=== PATIENT | female | born 1955 | race African-American/Black ===

== ENCOUNTER 2016-08-15 10:45 | Observation (INO) | payer OTHER ==
[~2016-08-15] VITALS: Ht 160 cm; Wt 90.3 kg
[~2016-08-15 10:45] MED LIST: ALBU1AER9 INH; ASPI81TA28 PO; BUME1TAB PO; CALC-354 PO; CETI10TA84 PO; CLOB0.0512 TOP; CLOP1TAB5 PO; CRS/10 PO; DIFL0.0519; ESCI1TAB9 PO; FLUT110A INH; GUAI1TAB55 PO; HYDR-3124 PO; HYDR-4683 TOP; INSDGI SC; IPRA0.037 NAE; ISOS60TA2 PO; KETO2SHA TOP; LACT1TAB4 PO; LISI-729 PO; LORA-741 PO; MAGNTAB4 PO; MENT4GEL TOP; METO25TA56 PO; METR0.754 TOP; MULT-513 PO; NTRGSL/4 UT; NVLGI SC; PANT40TA PO; POLY335025 PO; SENN1TAB65 PO
[2016-08-15] MEDS ORDERED: INSDGIPEN SC (11:04)
[2016-08-15] MEDS ORDERED: NVLGI/PEN SC (11:04)
[2016-08-15] MEDS ORDERED: HYDROmorphone INJ 0.5 MG/0.5 ML SYR IV STA (11:31)
[2016-08-15] MEDS ORDERED: ONDANSETRON INJ 2 MG/ML 2 ML VIAL IV STA (11:31)
[2016-08-15] MEDS ORDERED: SODIUM CHLORIDE 0.9% 1000ML 1,000 ML IV STA (11:31)
--- NOTE | 2016-08-15 11:39 | EMERGENCY ROOM VISIT NOTE ---
History First contact with patient: 11:20 Chief Complaint: FLU LIKE SX Stated Complaint: FLU SX History of Present Illness The patient is a 61 year old female who presents to the Emergency Room via ambulance with complaints of "flu symptoms". The patient presents to the emergency department via BLS. The patient is delayed in response verbally. The patient states that of this past week she felt lousy, tired and then began with nausea vomiting and diarrhea either the same day or the following day. She states that she has vomited a few times each day but denies any blood in the vomit. She also has had diarrhea several times per day and nausea. She does have abdominal pain she points to the diffuse abdomen as a location of the pain of which she rates as a 10/10 that began a few days ago. She also feels feverish. She also feels dizzy and lightheaded. There is associated shortness of breath. She has minor chest pain. She also has minor neck pain. She states that her sister has the same symptoms. Patient lives at home with her cat Review of Systems A complete 10-point Review of Systems was discussed with the patient, with pertinent positives and negatives listed in the History of Present Illness. All remaining Review of Systems questions can be considered negative unless otherwise specified. Past Medical/Surgical History Medical Problems: (1) Aortocoronary Bypass (2) Asthma, Unspecified (3) CKD (chronic kidney disease), stage III (4) Coronary atherosclerosis of [place] coronary vessel (5) Depression (6) Diab Nany Wo Compl, Type Ii Or Unspec Type, Not Uncntrld (7) Diabetic nephropathy (8) Diabetic retinopathy (9) GERD (gastroesophageal reflux disease) (10) Hypertension Nos (11) Neuropathy in diabetes (12) Obesity, Class II, BMI 35-39.9, with comorbidity (13) Obstructive Sleep Apnea (Adult) (Pediatric) (14) Osteoarthritis (15) Pacemaker (16) Polymyalgia rheumatica (17) Presence of combination internal cardiac defibrillator (ICD) and pacemaker (18) Pure Hypercholesterolem (19) Ventricular fibrillation Surgical Problems: (1) H/O eye surgery (2) History of appendectomy (3) History of cholecystectomy (4) History of hysterectomy (5) History of hysterectomy (6) S/P triple vessel bypass Social History Problems: (1) Diabetes mellitus Family History Diabetes mellitus FATHER BROTHER FH: cancer FH: lung disease FHx: heart disease MOTHER Hypertension MOTHER Kidney disease Kidney stones Social History Smoking Status: Former Smoker Alcohol Use: occasionally Drug Use: none Marital Status: Housing Status: lives alone Occupation Status: disabled Current/Historical Medications Scheduled Aspirin (Aspirin Ec), 81 MG PO QAM Bumetanide (Bumex), 1 MG PO QAM Calcium Carbonate-Cholecalcife (Caltrate 600+D), 1 TABLET PO BID Clopidogrel Bisulfate (Plavix), 75 MG PO HS Difluprednate (Durezol), 1 DOSE DIRECTED Escitalopram Oxalate (Lexapro), 15 MG PO QAM Hydroxyzine Hcl (Atarax), 12.5 MG PO HS Insulin Aspart (Novolog Flexpen), 1 DOSE SC SLIDING SCALE Insulin Glargine (Lantus Solostar), 80 UNITS SC AMPM Isosorbide Mononitrate (Imdur Ext Rel), 60 MG PO QAM Ketoconazole (Topical) (Ketoconazole), 1 APPLN TOP DAILY Lactobacillus (Floranex), 1 TAB PO DAILY Lisinopril (Prinivil), 5 MG PO QAM Magnesium Chloride (Slow-Mag Tab), 64 MG PO TID Metoprolol Tartrate (Lopressor) (Lopressor), 25 MG PO BID Multivitamins/Minerals (Mvi With Minerals), 1 TABLET PO QAM Pantoprazole (Protonix), 40 MG PO BID Polyethylene Glycol 3350 (Miralax), 17 MG PO BID Rosuvastatin Calcium (Crestor), 10 MG PO QAM Sennosides-Docusate Sodium (Senna Plus), 2 TAB PO HS Scheduled PRN Guaifenesin Ext Rel (Mucinex Ext Rel), 600 MG PO Q12 PRN for Nasal Congestion Lorazepam (Ativan), 0.5 MG PO TID PRN for Anxiety Nitroglycerin (Nitrostat), 0.4 MG UT UD PRN for Chest Pain Allergies Coded Allergies: BEE STING (Verified Allergy, Severe, SWELLING, 05/05/16) Lidocaine (Verified Allergy, Severe, ANAPHYLAXIS, 05/05/16) Morphine (Verified Allergy, Mild, itching, 05/05/16) Tramadol (Verified Allergy, Mild, ITCHING, 05/05/16) Trazodone (Verified Allergy, Mild, ITCHING, 05/05/16) Physical Exam Vital Signs Date Time Temp Pulse Resp B/P Pulse Ox O2 Delivery O2 Flow Rate FiO2 08/15/16 19:35 37.1 60 16 173/89 98 Nasal Cannula 2.0 08/15/16 19:07 183/80 100 08/15/16 18:48 73 16 177/121 96 Nasal Cannula 2.0 08/15/16 15:41 72 20 187/79 100 Room Air 08/15/16 14:36 177/84 08/15/16 13:58 183/83 08/15/16 13:34 71 16 100 Nasal Cannula 2.0 08/15/16 13:28 187/101 08/15/16 13:04 70 16 89 08/15/16 13:02 94 Room Air 08/15/16 12:59 168/94 08/15/16 12:45 64 16 94 08/15/16 12:15 66 17 08/15/16 12:03 66 08/15/16 11:47 189/113 08/15/16 10:54 37.3 74 18 205/107 96 Room Air Physical Exam VITAL SIGNS - Vital signs and nursing notes were reviewed. Patient is afebrile , she is hypertensive at 205/107, she is not tachycardic and is saturating well on room air 96%. GENERAL -61-year-old female appearing her stated age who is in no acute distress , but is delayed in her responses and seems to be searching mentally for answers. Communicates well with provider and answers questions appropriately when given enough time SKIN - Without rashes. No petechial rashes. No meningeal rashes. HEAD - NC/AT. EYES - PERRL with EOMI bilaterally. Sclera anicteric. Palpebral conjunctiva pink and moist with no injection noted. EARS - No deformities of external structures noted on gross examination bilaterally. No pain elicited with palpation of the tragus bilaterally. External auditory canals without discharge or otorrhea. Tympanic membranes pearly lopez without retraction or bulging. No fluid or purulent material visualized behind the TM. Handle of malleus, umbo, cone of light, pars tensa/ flaccid all easily visualized. NOSE - Midline and without cyanosis. No epistaxis or purulent drainage noted. MOUTH/OROPHARYNX - Without perioral cyanosis. Buccal mucosa pink and moist and without leukoplakia. Tongue midline with equal elevation of palate bilaterally. No tonsillar hypertrophy, erythema, or exudates noted. No dentition noted. NECK - Neck with FROM. Supple to palpation. No lymphadenopathy noted. No nuchal rigidity. Patient is diaphoretic on the back of the neck. LUNGS - Chest wall symmetric without accessory muscle use, intercostals retractions, or central cyanosis. Normal vesicular breath sounds CTA B/L. No wheezes, rales, or rhonchi appreciated. CARDIAC - RRR with S1/S2. No murmur, rubs, or gallops appreciated. ABDOMEN - Abdominal contour without pulsations or visible masses. BS normoactive all four quadrants. There is tenderness to palpation over the abdomen diffusely. No palpable masses, hepatosplenomegaly, or ascites noted. EXTREMITIES - No clubbing or peripheral cyanosis. No pretibial edema present. + 5/5 strength noted in UE/LE bilaterally. NEUROLOGIC - Cranial nerves II through XII grossly intact. Sensory intact to light touch throughout. PSYCH - A&Ox3 and cooperates fully with examiner. Pt is very pleasant and interacts well with examiner. She is alert and oriented to person, place and time. Medical Decision & Procedures ER Provider Diagnostic Interpretation: SINGLE VIEW CHEST CLINICAL HISTORY: Dyspnea. FINDINGS: An AP, portable, upright chest radiograph is compared to study dated 10/20/2015 and correlated with chest CT dated 04/08/2015. The patient is status post midline sternotomy. A 2-lead cardiac AICD is unchanged in position and largely obscures the left mid chest. The heart is enlarged and there is atherosclerotic calcification of the thoracic aorta. The pulmonary vasculature is noncongested. The lungs and pleural spaces are clear. No pneumothorax is seen. The skeletal structures are osteopenic. The bony thorax is grossly intact. IMPRESSION: 1. Cardiomegaly and AICD. There is no radiographic evidence of congestive failure. 2. The lungs are clear. Electronically signed by: Diego Ricardo M.D. 08/15/2016 12:59 PM Dictated Date/Time: 08/15/2016 12:[address] SCAN OF THE ABDOMEN AND PELVIS WITH IV CONTRAST CLINICAL HISTORY: Generalized abdominal pain. COMPARISON STUDY: Abdominal CT dated 03/23/2016 and 10/13/2013. Abdominal MRI dated 08/30/11. MRCP dated TECHNIQUE: Following the IV administration of 93 cc of Optiray 320, CT scan of the abdomen and pelvis is performed from the lung bases to the proximal femora. Images are reviewed in the axial, sagittal, and coronal planes. IV contrast was administered without complication. Automated dose control exposure was utilized. The examination is degraded by large body habitus, and by streak artifact from the body wall abutting the CT gantry. CT DOSE: 1015.20 mGycm FINDINGS: Lung bases: The heart is normal in size and without pericardial effusion. Pacemaker leads are noted. There is a small hiatal hernia. The lung bases are clear noting dependent atelectasis. Liver: The contrast-enhanced liver is normal in size, contour, and attenuation. Focal fatty infiltration is seen adjacent to falciform ligament and the gallbladder fossa. There is mild central intrahepatic biliary ductal dilatation. The hepatic veins and portal veins are patent. Gallbladder: Surgically absent noting clips in the gallbladder fossa. Spleen: Normal in size and attenuation. Pancreas: Unremarkable. Adrenal glands: A 3.0 cm left adrenal nodule is unchanged from 03/23/2016 but has increased in size from 10/13/2013. The right adrenal gland is unremarkable. Kidneys: The contrast enhanced kidneys are atrophic and without hydronephrosis. The kidneys enhance symmetrically. A 1.7 cm complex right renal lesion is unchanged dating 2013 and likely represents a complex/hemorrhagic cyst. Additional subcentimeter cortical hypodensities also likely represent cysts but are too small for definitive characterization. Abdominal vasculature: The abdominal aorta is normal in course and caliber noting mild to moderate atherosclerotic calcification. Bowel: The small bowel and colon are normal in course and caliber. The left colon is relatively decompressed. The appendix is not identified. Peritoneum: There is no intraperitoneal free air or abdominal ascites. Foci of subcutaneous gas within the abdominal pannus are likely related to subcutaneous injections. Lymphadenopathy: None. Pelvic viscera: The bladder is normal as visualized. The uterus is surgically absent. No adnexal lesion is seen. Skeletal structures: The skeletal structures are osteopenic. There is mild lumbosacral spondylosis. No lytic or blastic lesions are seen. IMPRESSION: 1. There are no acute infectious or inflammatory findings in the abdomen or pelvis. 2. There is a 3.0 cm left adrenal nodule. This is similar in size to the 03/23/2016 examination but has nearly doubled in size as compared to studies dating back to 2012 and 2013. This was pathologically indeterminant on a prior MRI examination. Surgical consultation is advised due to the increase in size. 3. Geographic foci of fatty infiltration are again noted in the liver. 4. Additional changes as above. Electronically signed by: Diego Ricardo M.D. 08/15/2016 3:16 PM Dictated Date/Time: 08/15/2016 3:03 PM Laboratory Results 08/15/16 12:15 Red Blood Count 4.98, Mean Corpuscular Volume 86.1, Mean Corpuscular Hemoglobin 29.5, Mean Corpuscular Hemoglobin Concent 34.3, Mean Platelet Volume 10.7, Neutrophils (%) (Auto) 69.0, Lymphocytes (%) (Auto) 26.1, Monocytes (%) (Auto) 4.5, Eosinophils (%) (Auto) 0.0, Basophils (%) (Auto) 0.1, Neutrophils # (Auto) 8.03, Lymphocytes # (Auto) 3.04, Monocytes # (Auto) 0.52, Eosinophils # (Auto) 0.00, Basophils # (Auto) 0.01 08/15/16 12:15 Test 08/15/16 12:15 08/15/16 12:25 08/15/16 12:50 08/15/16 12:55 White Blood Count 11.64 K/uL (4.8-10.8) Red Blood Count 4.98 M/uL (4.2-5.4) Hemoglobin 14.7 g/dL (12.0-16.0) Hematocrit 42.9 % (37-47) Mean Corpuscular Volume 86.1 fL (80-100) Mean Corpuscular Hemoglobin 29.5 pg (25-34) Mean Corpuscular Hemoglobin Concent 34.3 g/dl (32-36) Platelet Count 245 K/uL (130-400) Mean Platelet Volume 10.7 fL (7.4-10.4) Neutrophils (%) (Auto) 69.0 % Lymphocytes (%) (Auto) 26.1 % Monocytes (%) (Auto) 4.5 % Eosinophils (%) (Auto) 0.0 % Basophils (%) (Auto) 0.1 % Neutrophils # (Auto) 8.03 K/uL (1.4-6.5) Lymphocytes # (Auto) 3.04 K/uL (1.2-3.4) Monocytes # (Auto) 0.52 K/uL (0.11-0.59) Eosinophils # (Auto) 0.00 K/uL (0-0.5) Basophils # (Auto) 0.01 K/uL (0-0.2) RDW Standard Deviation 40.9 fL (36.4-46.3) RDW Coefficient of Variation 13.0 % (11.5-14.5) Immature Granulocyte % (Auto) 0.3 % Immature Granulocyte # (Auto) 0.04 K/uL (0.00-0.02) Prothrombin Time 11.2 SECONDS (9.0-12.0) Prothromb Time International Ratio 1.0 (0.9-1.1) Activated Partial Thromboplast Time 26.3 SECONDS (21.0-31.0) Partial Thromboplastin Ratio 1.0 Anion Gap 12.0 mmol/L (3-11) Est Creatinine Clear Calc Drug Dose 55.8 ml/min Estimated GFR () 61.9 Estimated GFR (Non- 53.4 BUN/Creatinine Ratio 18.9 (10-20) Calcium Level 9.8 mg/dl (8.5-10.1) Magnesium Level 1.8 mg/dl (1.8-2.4) Total Bilirubin 0.5 mg/dl (0.2-1) Aspartate Amino Transf (AST/SGOT) 25 U/L (15-37) Alanine Aminotransferase (ALT/SGPT) 31 U/L (12-78) Alkaline Phosphatase 52 U/L (45-117) Ammonia < 10.0 umol/L (11-32) Total Creatine Kinase 171 U/L (26-192) Creatine Kinase MB 3.9 ng/ml (0.5-3.6) Creatine Kinase MB Ratio 2.3 (0-3.0) Total Protein 9.3 gm/dl (6.4-8.2) Albumin 3.7 gm/dl (3.4-5.0) Globulin 5.6 gm/dl (2.5-4.0) Albumin/Globulin Ratio 0.7 (0.9-2) Lipase 77 U/L (73-393) Troponin I 0.032 ng/ml (0-0.045) Pro-B-Type Natriuretic Peptide 946 pg/ml (0-900) Influenza Type A Antigen Neg for Influ A (NEG) Influenza Type B Antigen Neg for Influ B (NEG) Bedside Lactic Acid Venous 2.14 mmol/L (0.90-1.70) Medications Administered Medications (Trade) Dose Ordered Sig/Tera Route Start Time Stop Time Status Last Admin Dose Admin Sodium Chloride (Nss 1000ml) 1,000 ml @ 999 mls/hr Q1H1M STAT IV 08/15/16 11:31 08/15/16 12:31 DC 08/15/16 13:01 999 MLS/HR Hydromorphone HCl (Dilaudid Inj) 0.5 mg NOW STAT IV 08/15/16 11:31 08/15/16 11:37 DC 08/15/16 13:01 0.5 MG Ondansetron HCl 4 mg 4 mg NOW STAT IV 08/15/16 11:31 08/15/16 11:37 DC 08/15/16 13:01 4 MG Sodium Chloride (Nss 1000ml) 1,000 ml @ 80 mls/hr [id number] IV 08/15/16 18:15 09/14/16 18:14 08/15/16 20:33 80 MLS/HR Hydromorphone HCl (Dilaudid Inj) 0.5 mg STK-MED ONCE .ROUTE 08/15/16 18:43 08/15/16 18:44 DC 08/15/16 18:43 0.5 MG Medical Decision Patient was seen and evaluated as above. After obtaining a thorough history and physical examination IV access is obtained and a CBC, CMP, ammonia, CK-MB, CPK, magnesium, lipase, influenza, urine drug screen, coagulation studies, UA clean catch culture if indicated, blood culture, [id number] troponin, lactic acid, BNP, chest 1 view portable, 1 L of normal saline, stat EKG, 1 mg of Dilaudid IV for milligrams of Zofran secondary to subjective and objective examination findings. Monitor was applied and continuous pulse ox was initiated. The patient was delayed in her responses to my verbal questions. I am unaware of her baseline. She is not with any family at this time. I was initially concerned for a multitude of potential causes reflecting the above workup. CBC revealed slight leukocytosis no anemia. Coagulation studies within normal limits. CMP reveals elevated anion gap, elevated BUN at 21, random glucose of 161, decreased ammonia, negative troponin, slight elevation of BNP at 946. Negative for influenza. Chest x-ray reveals cardiomegaly and pacemaker with defibrillator. There are incisional findings were discussed with the patient and patient's family upon their arrival. CT of the abdomen was performed as the patient was complaining of diffuse abdominal pain that was severe. I was concerned for acute intra-abdominal process although she has had numerous CT scans in the past. No acute process but there were incidental findings were discussed with the patient. Patient's case was discussed with my attending who also personally evaluated the patient. There was a large growth, 3 cm adrenal mass was discussed with the patient. She was unaware of this finding. I did discuss this with the radiologist and it was decided that the patient is to follow-up in the outpatient setting with a surgeon for this. I then wanted to perform an ambulatory trial and this was filled by the patient. I do believe that further management for this is appropriate. I did discuss the case with the hospitalist. They agreed to admit the patient. Please refer to further evaluation and documentation regarding her stay. EKG reveals sinus rhythm rate of 67 bpm and when compared to previous reveals atrial electronic pacing less frequent without evidence of acute ectopy or ischemic change. In the evaluation and treatment of this patient the following differential diagnoses were entertained: Heart failure, metabolic abnormality, electrolyte abnormality, stroke, heart attack, acute abdominal abnormality, among others. Impression Primary Impression: Influenza-like symptoms Additional Impressions: Presence of combination internal cardiac defibrillator (ICD) and pacemaker Adrenal nodule Cardiomegaly thoracic aorta calcification Ambulatory dysfunction Departure Information Dispostion Home / Self-Care Condition GOOD Referrals Reginaldo Ramirez D.O. (PCP) Patient Instructions My [facility] [employer] Additional Instructions You were seen in the emergency department for nausea, vomiting, diarrhea with body aches and low-grade fever. Your blood pressure was elevated today please have this repeated your family doctor. Please have basic labs repeated with your family doctor. Please wear family doctor as soon as possible schedule follow-up regarding today 's visit. The CT of your abdomen did reveal : Please discuss the findings of the CT scan with your doctor who should also have a copy of this. A 3.0 cm left adrenal nodule is unchanged from 03/23/2016 but has increased in size from 10/13/2013. It is recommended you follow-up with your family doctor for this and potential referral to a surgeon to have this removed. A 1.7 cm complex right renal lesion is unchanged dating 2013 and likely represents a complex/hemorrhagic cyst. Geographic foci of fatty infiltration are again noted in the liver. Please return to the emergency department with any new/concerning symptoms. Problem Qualifiers
[2016-08-15] MEDS ORDERED: OPTIRAY 320 IV PRN (11:45)
[2016-08-15 12:30] LABS: BASO % 0.1 %; BASO ABS # 0.01 K/uL (0-0.2); COMPLETE YES; HEMATOCRIT 42.9 % (37-47); IG% 0.3 %; LYMPH % 26.1 %; LYMPH ABS # 3.04 K/uL (1.2-3.4); MEAN CELL VOLUME 86.1 fL (80-100); MEAN CORPUSCULAR HEMOGLOBIN 29.5 pg (25-34); MEAN CORPUSCULAR HGB CONC 34.3 g/dl (32-36); MEAN PLATELET VOLUME 10.7 fL (7.4-10.4); MONO % 4.5 %; PLATELET COUNT 245 K/uL (130-400); RED BLOOD COUNT 4.98 M/uL (4.2-5.4); WHITE BLOOD COUNT 11.64 K/uL (4.8-10.8)
[2016-08-15 12:39] LABS: PROTHROMBIN TIME (PATIENT) 11.2 SECONDS (9.0-12.0)
[2016-08-15 12:47] LABS: BUN/CREATININE RATIO 18.9 (10-20); CALCIUM 9.8 mg/dl (8.5-10.1); CREATININE 1.1 mg/dl (0.60-1.20); MAGNESIUM 1.8 mg/dl (1.8-2.4)
[2016-08-15 12:59] LABS: ALB/GLOB RATIO 0.7 (0.9-2); CKMB/CK RATIO 2.3 (0-3.0)
--- NOTE | 2016-08-15 13:01 | DIAGNOSTIC IMAGING REPORT ---
SINGLE VIEW CHEST CLINICAL HISTORY: Dyspnea. FINDINGS: An AP, portable, upright chest radiograph is compared to study dated 10/20/2015 and correlated with chest CT dated 04/08/2015. The patient is status post midline sternotomy. A 2-lead cardiac AICD is unchanged in position and largely obscures the left mid chest. The heart is enlarged and there is atherosclerotic calcification of the thoracic aorta. The pulmonary vasculature is noncongested. The lungs and pleural spaces are clear. No pneumothorax is seen. The skeletal structures are osteopenic. The bony thorax is grossly intact. IMPRESSION: 1. Cardiomegaly and AICD. There is no radiographic evidence of congestive failure. 2. The lungs are clear. Electronically signed by: Diego Ricardo M.D. 08/15/2016 12:59 PM Dictated Date/Time: 08/15/2016 12:58 PM
--- NOTE | 2016-08-15 15:18 | DIAGNOSTIC IMAGING REPORT ---
CT SCAN OF THE ABDOMEN AND PELVIS WITH IV CONTRAST CLINICAL HISTORY: Generalized abdominal pain. COMPARISON STUDY: Abdominal CT dated 03/23/2016 and 10/13/2013. Abdominal MRI dated 08/30/11. MRCP dated TECHNIQUE: Following the IV administration of 93 cc of Optiray 320, CT scan of the abdomen and pelvis is performed from the lung bases to the proximal femora. Images are reviewed in the axial, sagittal, and coronal planes. IV contrast was administered without complication. Automated dose control exposure was utilized. The examination is degraded by large body habitus, and by streak artifact from the body wall abutting the CT gantry. CT DOSE: 1015.20 mGycm FINDINGS: Lung bases: The heart is normal in size and without pericardial effusion. Pacemaker leads are noted. There is a small hiatal hernia. The lung bases are clear noting dependent atelectasis. Liver: The contrast-enhanced liver is normal in size, contour, and attenuation. Focal fatty infiltration is seen adjacent to falciform ligament and the gallbladder fossa. There is mild central intrahepatic biliary ductal dilatation. The hepatic veins and portal veins are patent. Gallbladder: Surgically absent noting clips in the gallbladder fossa. Spleen: Normal in size and attenuation. Pancreas: Unremarkable. Adrenal glands: A 3.0 cm left adrenal nodule is unchanged from 03/23/2016 but has increased in size from 10/13/2013. The right adrenal gland is unremarkable. Kidneys: The contrast enhanced kidneys are atrophic and without hydronephrosis. The kidneys enhance symmetrically. A 1.7 cm complex right renal lesion is unchanged dating 2013 and likely represents a complex/hemorrhagic cyst. Additional subcentimeter cortical hypodensities also likely represent cysts but are too small for definitive characterization. Abdominal vasculature: The abdominal aorta is normal in course and caliber noting mild to moderate atherosclerotic calcification. Bowel: The small bowel and colon are normal in course and caliber. The left colon is relatively decompressed. The appendix is not identified. Peritoneum: There is no intraperitoneal free air or abdominal ascites. Foci of subcutaneous gas within the abdominal pannus are likely related to subcutaneous injections. Lymphadenopathy: None. Pelvic viscera: The bladder is normal as visualized. The uterus is surgically absent. No adnexal lesion is seen. Skeletal structures: The skeletal structures are osteopenic. There is mild lumbosacral spondylosis. No lytic or blastic lesions are seen. IMPRESSION: 1. There are no acute infectious or inflammatory findings in the abdomen or pelvis. 2. There is a 3.0 cm left adrenal nodule. This is similar in size to the 03/23/2016 examination but has nearly doubled in size as compared to studies dating back to 2012 and 2013. This was pathologically indeterminant on a prior MRI examination. Surgical consultation is advised due to the increase in size. 3. Geographic foci of fatty infiltration are again noted in the liver. 4. Additional changes as above. Electronically signed by: Diego Ricardo M.D. 08/15/2016 3:16 PM Dictated Date/Time: 08/15/2016 3:03 PM
--- NOTE | 2016-08-15 15:47 | EMERGENCY ROOM VISIT NOTE ---
ED Visit Note First contact with patient: 11:20 I have personally seen and evaluated the patient with the physician billing assistant. I agree with the diagnostic/management decisions and have personally been involved in these decisions and agree with the diagnosis. The patient would like to go home. She states that she lives alone. She is feeling much better.
[2016-08-15] MEDS ORDERED: ONDANSETRON HOME PACK 4MG OD TAB PO STA (16:19)
[2016-08-15] MEDS ORDERED: GLUCOSE 10 TABS/TUBE PO PRN (18:15)
[2016-08-15] MEDS ORDERED: MAGNESIUM HYDROXIDE SUSP 30 ML UDC PO PRN (18:15)
[2016-08-15] MEDS ORDERED: GUAIFENESIN 600 MG TABCR PO PRN (18:15)
[2016-08-15] MEDS ORDERED: ALUMINUM/MAGNESIUM/SIMETH (MAALOX MAX) 30 ML UDC PO PRN (18:15)
[2016-08-15] MEDS ORDERED: LORAZEPAM 0.5 MG TAB PO PRN (18:15)
[2016-08-15] MEDS ORDERED: NITROGLYCERIN 0.4 MG SL PER TAB CHARGE UT PRN (18:15)
[2016-08-15] MEDS ORDERED: GLUCOSE 40% GEL 15 GM TUBE PO PRN (18:15)
[2016-08-15] MEDS ORDERED: HYDROmorphone INJ 1 MG/ML SYR IV PRN (18:15)
[2016-08-15] MEDS ORDERED: GLUCAGON FOR INJ 1 MG VIAL SQ PRN (18:15)
[2016-08-15] MEDS ORDERED: ONDANSETRON INJ 2 MG/ML 2 ML VIAL IV PRN (18:15)
[2016-08-15] MEDS ORDERED: DEXTROSE 50% 50 ML SYR IV PRN (18:15)
[2016-08-15] MEDS ORDERED: PHARMACY GLYCEMIC MGMT CONSULT PRN (18:32)
[2016-08-15] MEDS ORDERED: HYDROmorphone INJ 0.5 MG/0.5 ML SYR ONE (18:43)
--- NOTE | 2016-08-15 18:50 | History and Physical ---
History & Physical Date & Time of Service: Aug 15, 2016 at 18:24 Chief Complaint: Flu Sx Primary Care Physician: Reginaldo Ramirez D.O. History of Present Illness Source: patient, family, clinic records, hospital records This is a 61 year old female with PMH of CAD s/p CABG and PCI/stenting, hx. of ventricular fibrillation s/p implantable cardioverter/defibrillator, insulin dependent DM2, HTN presents with abdominal pain, nausea/vomiting, diarrhea, weakness and ambulatory dysfunction. Patient states that the weakness and n/v/d began about a week prior but started to worsen prior to arrival in the ER. She tells me this is associated with abdominal pain diffusely; unable to pinpoint where the pain is. Patient stated that she felt better after receiving fluids and pain medications in the ER and wanted to go home. She tried to get up and ambulate, but had difficulty doing it; +weakness persists Past Medical/Surgical History Medical Problems: (1) Aortocoronary Bypass Status: Resolved (2) Asthma, Unspecified Status: Chronic (3) CKD (chronic kidney disease), stage III Status: Chronic (4) Coronary atherosclerosis of [place] coronary vessel Permanent Comment: s/p CABG (SVG to OM, SVT to OM2, MEHTA to LAD) on 04/05/1998 s/p HEIDY x2 (LM and LAD) in 06/2012 Status: Chronic (5) Depression Status: Chronic (6) Diab Nany Wo Compl, Type Ii Or Unspec Type, Not Uncntrld Status: Chronic (7) Diabetic nephropathy Status: Chronic (8) Diabetic retinopathy Status: Chronic (9) GERD (gastroesophageal reflux disease) Status: Chronic (10) Hypertension Nos Status: Chronic (11) Neuropathy in diabetes Status: Chronic (12) Obesity, Class II, BMI 35-39.9, with comorbidity Status: Chronic (13) Obstructive Sleep Apnea (Adult) (Pediatric) Status: Chronic (14) Pacemaker Status: Resolved (15) Polymyalgia rheumatica Status: Chronic (16) Presence of combination internal cardiac defibrillator (ICD) and pacemaker Status: Chronic (17) Pure Hypercholesterolem Status: Chronic (18) Ventricular fibrillation Permanent Comment: VF arrest x2 s/p ICD placement Status: Chronic Surgical Problems: (1) H/O eye surgery Status: Chronic (2) History of appendectomy Status: Resolved (3) History of cholecystectomy Status: Resolved (4) History of hysterectomy Status: Resolved (5) History of hysterectomy Status: Chronic (6) S/P triple vessel bypass Status: Resolved Social History Problems: (1) Diabetes mellitus Status: Chronic Family History Diabetes mellitus FATHER BROTHER FH: cancer FH: lung disease FHx: heart disease MOTHER Hypertension MOTHER Kidney disease Kidney stones Social History Smoking Status: Former Smoker Drug Use: none Marital Status: Housing status: lives alone Occupational Status: disabled Immunizations History of Influenza Vaccine: N/A History of Tetanus Vaccine?: No History of Pneumococcal: No History of Hepatitis B Vaccine: No Allergies Coded Allergies: BEE STING (Verified Allergy, Severe, SWELLING, 05/05/16) Lidocaine (Verified Allergy, Severe, ANAPHYLAXIS, 05/05/16) Morphine (Verified Allergy, Mild, itching, 05/05/16) Tramadol (Verified Allergy, Mild, ITCHING, 05/05/16) Trazodone (Verified Allergy, Mild, ITCHING, 05/05/16) Home Medications Scheduled Aspirin (Aspirin Ec), 81 MG PO QAM Bumetanide (Bumex), 1 MG PO QAM Calcium Carbonate-Cholecalcife (Caltrate 600+D), 1 TABLET PO BID Clopidogrel Bisulfate (Plavix), 75 MG PO HS Difluprednate (Durezol), 1 DOSE DIRECTED Escitalopram Oxalate (Lexapro), 15 MG PO QAM Hydroxyzine Hcl (Atarax), 12.5 MG PO HS Insulin Aspart (Novolog Flexpen), 1 DOSE SC SLIDING SCALE Insulin Glargine (Lantus Solostar), 80 UNITS SC AMPM Isosorbide Mononitrate (Imdur Ext Rel), 60 MG PO QAM Ketoconazole (Topical) (Ketoconazole), 1 APPLN TOP DAILY Lactobacillus (Floranex), 1 TAB PO DAILY Lisinopril (Prinivil), 5 MG PO QAM Magnesium Chloride (Slow-Mag Tab), 64 MG PO TID Metoprolol Tartrate (Lopressor) (Lopressor), 25 MG PO BID Multivitamins/Minerals (Mvi With Minerals), 1 TABLET PO QAM Pantoprazole (Protonix), 40 MG PO BID Polyethylene Glycol 3350 (Miralax), 17 MG PO BID Rosuvastatin Calcium (Crestor), 10 MG PO QAM Sennosides-Docusate Sodium (Senna Plus), 2 TAB PO HS Scheduled PRN Guaifenesin Ext Rel (Mucinex Ext Rel), 600 MG PO Q12 PRN for Nasal Congestion Lorazepam (Ativan), 0.5 MG PO TID PRN for Anxiety Nitroglycerin (Nitrostat), 0.4 MG UT UD PRN for Chest Pain Review of Systems Constitutional: + fatigue, + weakness, No chills, No fever, No sweats Respiratory: No cough, No dyspnea at rest, No dyspnea on exertion, No hemoptysis, No shortness of breath, No sputum, No wheezing Cardiovascular: No chest pain, No edema, No orthopnea, No palpitations Abdomen: + diarrhea, + nausea, + pain, + vomiting, No GI bleeding, No constipation Genitourinary - Female: No dysuria, No urinary frequency, No urinary incontinence, No urinary retention, No urinary urgency Neurologic: + balance problems, + weakness, No memory loss, No numbness/ tingling, No vertigo Psychiatric: No anxiety, No depression symptoms Hematologic / Lymphatic: No abnormal bleeding/bruising Integumentary: No rash Allergic / Immunologic: No environmental allergies Physical Exam Vital Signs Date Time Temp Pulse Resp B/P Pulse Ox O2 Delivery O2 Flow Rate FiO2 08/15/16 15:41 72 20 187/79 100 Room Air 08/15/16 14:36 177/84 08/15/16 13:58 183/83 08/15/16 13:34 71 16 100 Nasal Cannula 2.0 08/15/16 13:28 187/101 08/15/16 13:04 70 16 89 08/15/16 13:02 94 Room Air 08/15/16 12:59 168/94 08/15/16 12:45 64 16 94 08/15/16 12:15 66 17 08/15/16 12:03 66 08/15/16 11:47 189/113 08/15/16 10:54 37.3 74 18 205/107 96 Room Air General Appearance: no apparent distress, + pertinent finding (+weakness/ lethargic) Head: normocephalic, atraumatic, + pertinent finding (+facial hair growth) Eyes: normal inspection ENT: normal ENT inspection, hearing grossly normal Neck: supple Respiratory/Chest: chest non-tender, lungs clear, normal breath sounds, no respiratory distress, no accessory muscle use, + pertinent finding (+ implantable defibrillator at left chest wall) Cardiovascular: regular rate, rhythm, no edema, no murmur Abdomen/GI: normal bowel sounds, soft, + tenderness, + guarding Extremities/Musculoskelatal: no calf tenderness, normal capillary refill, no pedal edema Neurologic/Psych: no motor/sensory deficits, alert, + pertinent finding (+ weakness/lethargic) Skin: normal color Diagnostics Laboratory Results Results Past 24 Hours Test 08/15/16 11:45 08/15/16 12:15 08/15/16 12:25 08/15/16 12:50 Range/Units Influenza Type A Antigen Uninterpretable Neg for Influ A NEG Influenza Type B Antigen Uninterpretable Neg for Influ B NEG White Blood Count 11.64 4.8-10.8 K/uL Red Blood Count 4.98 4.2-5.4 M/uL Hemoglobin 14.7 12.0-16.0 g/dL Hematocrit 42.9 37-47 % Mean Corpuscular Volume 86.1 80-100 fL Mean Corpuscular Hemoglobin 29.5 25-34 pg Mean Corpuscular Hemoglobin Concent 34.3 32-36 g/dl Platelet Count 245 130-400 K/uL Mean Platelet Volume 10.7 7.4-10.4 fL Neutrophils (%) (Auto) 69.0 % Lymphocytes (%) (Auto) 26.1 % Monocytes (%) (Auto) 4.5 % Eosinophils (%) (Auto) 0.0 % Basophils (%) (Auto) 0.1 % Neutrophils # (Auto) 8.03 1.4-6.5 K/uL Lymphocytes # (Auto) 3.04 1.2-3.4 K/uL Monocytes # (Auto) 0.52 0.11-0.59 K/uL Eosinophils # (Auto) 0.00 0-0.5 K/uL Basophils # (Auto) 0.01 0-0.2 K/uL RDW Standard Deviation 40.9 36.4-46.3 fL RDW Coefficient of Variation 13.0 11.5-14.5 % Immature Granulocyte % (Auto) 0.3 % Immature Granulocyte # (Auto) 0.04 0.00-0.02 K/uL Prothrombin Time 11.2 9.0-12.0 SECONDS Prothromb Time International Ratio 1.0 0.9-1.1 Activated Partial Thromboplast Time 26.3 21.0-31.0 SECONDS Partial Thromboplastin Ratio 1.0 Sodium Level 139 136-145 mmol/L Potassium Level 4.0 3.5-5.1 mmol/L Chloride Level 99 98-107 mmol/L Carbon Dioxide Level 28 21-32 mmol/L Anion Gap 12.0 3-11 mmol/L Blood Urea Nitrogen 21 7-18 mg/dl Creatinine 1.10 0.60-1.20 mg/dl Est Creatinine Clear Calc Drug Dose 55.8 ml/min Estimated GFR () 61.9 Estimated GFR (Non- 53.4 BUN/Creatinine Ratio 18.9 10-20 Random Glucose 161 70-99 mg/dl Calcium Level 9.8 8.5-10.1 mg/dl Magnesium Level 1.8 1.8-2.4 mg/dl Total Bilirubin 0.5 0.2-1 mg/dl Aspartate Amino Transf (AST/SGOT) 25 15-37 U/L Alanine Aminotransferase (ALT/SGPT) 31 12-78 U/L Alkaline Phosphatase 52 45-117 U/L Ammonia < 10.0 11-32 umol/L Total Creatine Kinase 171 26-192 U/L Creatine Kinase MB 3.9 0.5-3.6 ng/ml Creatine Kinase MB Ratio 2.3 0-3.0 Total Protein 9.3 6.4-8.2 gm/dl Albumin 3.7 3.4-5.0 gm/dl Globulin 5.6 2.5-4.0 gm/dl Albumin/Globulin Ratio 0.7 0.9-2 Lipase 77 73-393 U/L Troponin I 0.032 0-0.045 ng/ml Pro-B-Type Natriuretic Peptide 946 0-900 pg/ml Test 08/15/16 12:55 Range/Units Bedside Lactic Acid Venous 2.14 0.90-1.70 mmol/L Microbiology Results 08/15/16 Blood Culture, Received Pending Diagnostic Radiology SINGLE VIEW CHEST CLINICAL HISTORY: Dyspnea. FINDINGS: An AP, portable, upright chest radiograph is compared to study dated 10/20/2015 and correlated with chest CT dated 04/08/2015. The patient is status post midline sternotomy. A 2-lead cardiac AICD is unchanged in position and largely obscures the left mid chest. The heart is enlarged and there is atherosclerotic calcification of the thoracic aorta. The pulmonary vasculature is noncongested. The lungs and pleural spaces are clear. No pneumothorax is seen. The skeletal structures are osteopenic. The bony thorax is grossly intact. IMPRESSION: 1. Cardiomegaly and AICD. There is no radiographic evidence of congestive failure. 2. The lungs are clear. CT SCAN OF THE ABDOMEN AND PELVIS WITH IV CONTRAST CLINICAL HISTORY: Generalized abdominal pain. COMPARISON STUDY: Abdominal CT dated 03/23/2016 and 10/13/2013. Abdominal MRI dated 08/30/11. MRCP dated TECHNIQUE: Following the IV administration of 93 cc of Optiray 320, CT scan of the abdomen and pelvis is performed from the lung bases to the proximal femora. Images are reviewed in the axial, sagittal, and coronal planes. IV contrast was administered without complication. Automated dose control exposure was utilized. The examination is degraded by large body habitus, and by streak artifact from the body wall abutting the CT gantry. CT DOSE: 1015.20 mGycm FINDINGS: Lung bases: The heart is normal in size and without pericardial effusion. Pacemaker leads are noted. There is a small hiatal hernia. The lung bases are clear noting dependent atelectasis. Liver: The contrast-enhanced liver is normal in size, contour, and attenuation. Focal fatty infiltration is seen adjacent to falciform ligament and the gallbladder fossa. There is mild central intrahepatic biliary ductal dilatation. The hepatic veins and portal veins are patent. Gallbladder: Surgically absent noting clips in the gallbladder fossa. Spleen: Normal in size and attenuation. Pancreas: Unremarkable. Adrenal glands: A 3.0 cm left adrenal nodule is unchanged from 03/23/2016 but has increased in size from 10/13/2013. The right adrenal gland is unremarkable. Kidneys: The contrast enhanced kidneys are atrophic and without hydronephrosis. The kidneys enhance symmetrically. A 1.7 cm complex right renal lesion is unchanged dating 2013 and likely represents a complex/hemorrhagic cyst. Additional subcentimeter cortical hypodensities also likely represent cysts but are too small for definitive characterization. Abdominal vasculature: The abdominal aorta is normal in course and caliber noting mild to moderate atherosclerotic calcification. Bowel: The small bowel and colon are normal in course and caliber. The left colon is relatively decompressed. The appendix is not identified. Peritoneum: There is no intraperitoneal free air or abdominal ascites. Foci of subcutaneous gas within the abdominal pannus are likely related to subcutaneous injections. Lymphadenopathy: None. Pelvic viscera: The bladder is normal as visualized. The uterus is surgically absent. No adnexal lesion is seen. Skeletal structures: The skeletal structures are osteopenic. There is mild lumbosacral spondylosis. No lytic or blastic lesions are seen. IMPRESSION: 1. There are no acute infectious or inflammatory findings in the abdomen or pelvis. 2. There is a 3.0 cm left adrenal nodule. This is similar in size to the 03/23/2016 examination but has nearly doubled in size as compared to studies dating back to 2011 and 2013. This was pathologically indeterminant on a prior MRI examination. Surgical consultation is advised due to the increase in size. 3. Geographic foci of fatty infiltration are again noted in the liver. 4. Additional changes as above. EKG PACs; atrial pacing Impression Assessment and Plan This is a 61 year old female with PMH of uncontrolled diabetes mellitus, requiring insulin with multiple complications including neuropathy and nephropathy, chronic kidney disease stage III, hx. of CAD s/p CABG and PCI/stent , hx. of ventricular fibrillation s/p implantable cardioverter/defibrillator, HTN, HLD, diastolic CHF, severe SACHA not on CPAP Nausea/Vomiting/Diarrhea likely Viral Gastroenteritis patient presented with one week hx. of nausea/vomiting/diarrhea Abdominal CT performed; showing adrenal mass, though no other acute processes mild leukocytosis, hemodynamically stable likely related to a viral infection will give IVFs, supportive care, antiemetics start with clears and advance if tolerated IV Dilaudid for abdominal pain - patient uses long-term narcotics check for Influenza PCR check blood culture, UA, urine culture, stool culture, C. Diff Ambulatory Dysfunction likely related to above infection + dehydration supportive care, IVFs PT/OT may need rehab prior to discharge home depending on how she does with therapy Adrenal Incidentaloma abdominal CT = There is a 3.0 cm left adrenal nodule this has doubled in size from previous CT surgical consult placed for further evaluation Uncontrolled Diabetes Mellitus type 2 with complications including neuropathy and nephropathy on a very high dose of Lantus (80 units BID) currently not tolerating PO diet, will cut in half, 40 units BID insulin sliding scale diabetic diet and clears for now hypoglycemic protocol pharmacy glycemic control consultation Chronic Kidney Disease stage 3 creat at 1.1 seems to be at baseline will give IVFs for now due to vomiting/diarrhea avoid nephrotoxic agents when able CAD with hx. of CABG and stents no chest pain, no shortness of breath continue current cardiac medications Hx. of Ventricular Fibrillation s/p AICD EKG shows atrial paced at times no chest pain/palpitations continue current cardiac medications Diastolic CHF normal LVEF on echo from 2014 stress echo performed in January 2015 with no significant findings currently euvolemic IVFs, monitor for overload HTN blood pressures elevated will give missed doses of medications monitor BP in AM and adjust accordingly DVT ppx subq heparin FULL CODE VTE Prophylaxis VTE Risk Assessment Done? Y/N: Yes Risk Level: High
[2016-08-15 19:35] VITALS: BP 173/89; PULSE 60; TEMP 37.1; O2SAT 98
[2016-08-15] MEDS: SODIUM CHLORIDE 0.9% 1000ML 1,000 ML IV SCH (20:33)
[2016-08-15 20:34] VITALS: BP 173/89; PULSE 60; TEMP 37.1; O2SAT 98; BMI 35.3
[2016-08-15] MEDS ORDERED: IV FLUIDS COMPLETED PRN (21:00)
--- NOTE | 2016-08-15 21:13 | Pharmacy Progress Note ---
Glycemic Control Intl Consult Date of Service Aug 15, 2016. Scope Glycemic Pharmacist consulted by Dr Baptiste on 08/15/16 for glycemic control and to write orders per [facility] inpatient glycemic control protocol Objective Weight (Kilograms): 90.300 Accuchecks BSG (last 24hrs): Test 08/15/16 12:15 Random Glucose 161 mg/dl (70-99) Laboratory Data (last 24hrs) Test 08/15/16 12:15 Anion Gap 12.0 mmol/L BUN/Creatinine Ratio 18.9 Blood Urea Nitrogen 21 mg/dl Creatinine 1.10 mg/dl Potassium Level 4.0 mmol/L Sodium Level 139 mmol/L White Blood Count 11.64 K/uL Red Blood Count 4.98 M/uL Hemoglobin 14.7 g/dL Hematocrit 42.9 % Mean Corpuscular Volume 86.1 fL Mean Corpuscular Hemoglobin 29.5 pg Mean Corpuscular Hemoglobin Concent 34.3 g/dl Platelet Count 245 K/uL Mean Platelet Volume 10.7 fL Neutrophils (%) (Auto) 69.0 % Lymphocytes (%) (Auto) 26.1 % Monocytes (%) (Auto) 4.5 % Eosinophils (%) (Auto) 0.0 % Basophils (%) (Auto) 0.1 % Neutrophils # (Auto) 8.03 K/uL Lymphocytes # (Auto) 3.04 K/uL Monocytes # (Auto) 0.52 K/uL Eosinophils # (Auto) 0.00 K/uL Basophils # (Auto) 0.01 K/uL HbA1c HbA1c = 12.2% (08/19/15), new HbA1c pending with AM labs on 08/16/16 Recent Pertinent Medications Outpatient Anti-diabetic Regimen: * Lantus 80 units BID, Novolog "sliding scale" (max of 140 units/day) * A1c = 12.2 % (08/19/15); repeat HbA1c pending Risk Factors for Insulin Resistance: * Steroids: N/A * Infection: N/A * Pressors: N/A * IVF: NS @ 80 mL/hr * Recent Surgery: N/A * Diet: Clear liquid diet * Mechanical Ventilation: N/A Assessment & Plan ASSESSMENT: * ADA & AACE recommend a goal blood sugar range 140-180 mg/dl for the majority of critically ill & non-critically ill patients. However, more stringent targets may be selected in individual cases. * Pharmacy has been consulted for glycemic management of the patient in the past. She is very insulin resistant from past records with HbA1c from last year showing very poor glucose control. Repeat HbA1c pending for 08/16/16 with AM labs. * She presents with n/v and is currently on a clear liquid diet. Will reduce her basal dose by 50% to prevent hypoglycemia. Unclear how much Novolog patient uses as an outpatient, but will give a more aggressive weight-based CF and CR for now. Likely will need to titrate insulin once patient resumes regular diet. PLAN FOR INPATIENT GLYCEMIC CONTROL: * Basal insulin with LANTUS 40 units SQ BID * Correctional Insulin with NOVOLOG / REGULAR per scale ACHS or Q6hrs while NPO * Goal Range: Low 120 mg/dL - High 160 mg/dL * Correction Factor: 20 mg/dL/unit * Nutritional / Prandial insulin per carb ratio of 1 unit per 10 grams CHO consumed * Please note that the plan above was derived based on current level of insulin resistance and hospital stress. These recommendations are appropriate for inpatient admission only. Plan of care upon discharge will need to be reassessed to avoid potential outpatient hypo/hyperglycemia. Thank you.
[2016-08-15 21:14] VITALS: O2SAT 98
[2016-08-15] MEDS: DOCUSATE SODIUM/SENNA 50/8.6MG TAB PO SCH (21:27)
[2016-08-15] MEDS: METOPROLOL TARTRATE 25 MG TAB PO SCH (21:27)
[2016-08-15] MEDS: hydrOXYzine HCL 25 MG TAB PO SCH (21:28)
[2016-08-15] MEDS: MAGNESIUM CHLORIDE 64MG DELAYED REL TAB PO SCH (21:28)
[2016-08-15] MEDS: CLOPIDOGREL BISULFATE 75 MG TAB PO SCH (21:28)
[2016-08-15] MEDS: POLYETHYLENE (MIRALAX) 17 GM PACK PO SCH (21:28)
[2016-08-15] MEDS: PANTOprazole SOD 40 MG TAB PO SCH (21:28)
[2016-08-15] MEDS: INSULIN ASPART 100 UNITS/ML 3 ML PEN SC SCH (21:31)
[2016-08-15] MEDS: INSULIN GLARGINE SOLOSTAR 100 UNITS/ML 3 ML PEN SC SCH (21:32)
[2016-08-15] MEDS: HEPARIN SOD 5000 UNIT/0.5 ML CARP SQ SCH (21:33)
[2016-08-15 22:44] VITALS: BP 145/61; PULSE 62; TEMP 36.9; O2SAT 100
[2016-08-16 00:34] VITALS: BP 153/92; PULSE 61; TEMP 37.1; O2SAT 96
[2016-08-16] MEDS: METRONIDAZOLE 500 MG TAB PO SCH ×3 (03:48→20:45)
[2016-08-16] MEDS: SODIUM CHLORIDE 0.9% 1000ML 1,000 ML IV SCH ×2 (05:39→18:48)
[2016-08-16 06:02] LABS: HEMATOCRIT 37.6 % (37-47); MEAN CELL VOLUME 87.9 fL (80-100); MEAN CORPUSCULAR HEMOGLOBIN 29.2 pg (25-34); MEAN CORPUSCULAR HGB CONC 33.2 g/dl (32-36); MEAN PLATELET VOLUME 10.5 fL (7.4-10.4); PLATELET COUNT 220 K/uL (130-400); RED BLOOD COUNT 4.28 M/uL (4.2-5.4); WHITE BLOOD COUNT 10.39 K/uL (4.8-10.8)
[2016-08-16 06:35] LABS: BUN/CREATININE RATIO 17.8 (10-20); CALCIUM 8.4 mg/dl (8.5-10.1); CREATININE 1.1 mg/dl (0.60-1.20); POTASSIUM 3.7 mmol/L (3.5-5.1)
[2016-08-16 06:45] LABS: THYROID STIMULATING HORMONE 2.06 uIu/ml (0.300-4.500)
[2016-08-16 07:36] VITALS: BP 145/87; PULSE 60; TEMP 36.7; O2SAT 98
--- NOTE | 2016-08-16 08:52 | Pre-Operative Consultation ---
History General Date of Service: Aug 16, 2016. Chief Complaint: adrenal nodule HPI HPI: The patient is a 61 year old female being seen at the request of Dr. Baptiste for an incidentally found adrenal nodule. History is obtained from chart and patient (poor historian). In 2013, she was found to have a left incidentaloma on the adrenal gland. During this admission for presumed viral gastroenteritis, she had a f/u CT scan which showed the nodule to now be almost 3 cm in size ( doubling since 2013 although stable since a Mar 2016 CT). She is unsure is she had a workup for this nodule in the past. She does note hypertension for the last "few years" for which she takes blood pressure medications. She is still having some mild generalized abdominal discomfort. No further nausea or vomiting. She has an extensive PMHx notable for diabetes since the , coronary artery disease s/p AICD placement, history of pneumonia, obesity. Problem List Medical Problems: (1) Adrenal nodule Status: Acute (2) Altered mental status Status: Acute (3) Ambulatory dysfunction Status: Acute (4) Blood in stool Status: Acute (5) Cardiomegaly Status: Acute (6) Contusion of multiple sites Status: Acute (7) Dehydration Status: Acute (8) Dehydration Status: Acute (9) Fall Status: Acute (10) Hyperglycemia Status: Acute (11) Influenza-like symptoms Status: Acute (12) Presence of combination internal cardiac defibrillator (ICD) and pacemaker Status: Chronic Social History Problems: (1) Diabetes mellitus Status: Chronic Medical & Surgical History Past Medical History: asthma, diabetes, heart attack, hypertension, pneumonia Past Surgical History: cholecystectomy, coronary bypass surgery, defibrillator , hysterectomy Family History Family History: cancer, diabetes, heart disease, hypertension, lung disease, renal disease Social History Hx Tobacco Use In Past Year?: No Smoking Status: Never Smoker Alcohol: occasionally Drug Use: none Marital status: Housing status: lives alone Occupation status: disabled Immunizations Have You Had Influenza Vaccine: N/A Have You Had Tetanus Vaccine: No History of Pneumococcal: No History Hepatitis B Vaccine: No Allergies Allergies: Coded Allergies: BEE STING (Verified Allergy, Severe, SWELLING, 05/05/16) Lidocaine (Verified Allergy, Severe, ANAPHYLAXIS, 05/05/16) Morphine (Verified Allergy, Mild, itching, 05/05/16) Tramadol (Verified Allergy, Mild, ITCHING, 05/05/16) Trazodone (Verified Allergy, Mild, ITCHING, 05/05/16) Medications Current Inpatient Medications Current Inpatient Medications Medications (Trade) Dose Ordered Sig/Tera Route Start Time Stop Time Status Last Admin Dose Admin Ioversol (Optiray 320) 125 ml UD PRN IV 08/15/16 11:45 08/19/16 11:44 Acetaminophen (Tylenol Tab) 650 mg Q4H PRN PO 08/15/16 18:15 09/14/16 18:14 Al Hydrox/Mg Hydrox/Simethicone (Maalox Max Susp) 15 ml Q4H PRN PO 08/15/16 18:15 09/14/16 18:14 Magnesium Hydroxide (Milk Of Magnesia Susp) 30 ml Q6H PRN PO 08/15/16 18:15 09/14/16 18:14 Insulin Glargine (Lantus Solostar Pen) 40 unit Q12 SC 08/15/16 21:00 09/14/16 20:59 08/15/16 21:32 40 UNIT Insulin Aspart (novoLOG ASPART) SLIDING SCALE If C... ACHS SC 08/15/16 21:00 09/14/16 20:59 08/15/16 21:31 4 UNITS Glucose (Glucose 40% Gel) 15-30 GRAMS 15 GRAMS... UD PRN PO 08/15/16 18:15 09/14/16 18:14 Glucose (Glucose Chew Tab) 4-8 Tablets 4 Tabl... UD PRN PO 08/15/16 18:15 09/14/16 18:14 Dextrose (Dextrose 50% 50ML Syringe) 25-50ML OF 50% DW IV FOR... UD PRN IV 08/15/16 18:15 09/14/16 18:14 Glucagon (Glucagon Inj) 1 mg UD PRN SQ 08/15/16 18:15 09/14/16 18:14 Miscellaneous Information (Consult Glycemic Management Pharmacy) 1 ea UD PRN N/A 08/15/16 18:32 09/14/16 18:31 Aspirin (Ecotrin Tab) 81 mg QAM PO 08/16/16 09:00 09/15/16 08:59 Bumetanide (Bumex Tab) 1 mg QAM PO 08/16/16 09:00 09/15/16 08:59 Clopidogrel Bisulfate (plAVix TAB) 75 mg HS PO 08/15/16 21:00 09/14/16 20:59 08/15/16 21:28 75 MG Escitalopram Oxalate (Lexapro Tab) 15 mg QAM PO 08/16/16 09:00 09/15/16 08:59 Guaifenesin (Mucinex Contr Rel Tab) 600 mg Q12 PRN PO 08/15/16 18:15 09/14/16 18:14 Hydroxyzine HCl (Vistaril Tab) 12.5 mg HS PO 08/15/16 21:00 09/14/16 20:59 08/15/16 21:28 12.5 MG Isosorbide Mononitrate (Imdur Ext Rel Tab) 60 mg QAM PO 08/16/16 09:00 09/15/16 08:59 Lactobacillus Acidophilus (Floranex Tab) 1 tab DAILY PO 08/16/16 09:00 09/15/16 08:59 Lorazepam (Ativan Tab) 0.5 mg TID PRN PO 08/15/16 18:15 09/14/16 18:14 Magnesium Chloride (Slow-Mag Tab) 64 mg TID PO 08/15/16 21:00 09/14/16 20:59 08/15/16 21:28 64 MG Metoprolol Tartrate (Lopressor Tab) 25 mg BID PO 08/15/16 21:00 09/14/16 20:59 08/15/16 21:27 25 MG Multivitamins/ Minerals (Multivitamin W/ Minerals Tab) 1 tab QAM PO 08/16/16 09:00 09/15/16 08:59 Nitroglycerin (Nitrostat Tab) 0.4 mg UD PRN UT 08/15/16 18:15 09/14/16 18:14 Pantoprazole Sodium (Protonix Tab) 40 mg BID PO 08/15/16 21:00 09/14/16 20:59 08/15/16 21:28 40 MG Polyethylene (Miralax Powder Packet) 17 gm BID PO 08/15/16 21:00 09/14/16 20:59 08/15/16 21:28 17 GM Rosuvastatin Calcium (Crestor Tab) 10 mg QAM PO 08/16/16 09:00 09/15/16 08:59 Senna/Docusate Sodium 2 tab 2 tab HS PO 08/15/16 21:00 09/14/16 20:59 08/15/16 21:27 2 TAB Sodium Chloride (Nss 1000ml) 1,000 ml @ 80 mls/hr [id number] IV 08/15/16 18:15 09/14/16 18:14 08/16/16 05:39 80 MLS/HR Hydromorphone HCl (Dilaudid Inj) 0.5 mg Q4 PRN IV 08/15/16 18:15 08/29/16 18:14 Ondansetron HCl (Zofran Inj) 4 mg Q4H PRN IV 08/15/16 18:45 09/14/16 18:44 Heparin Sodium (Porcine) (Heparin Sq 5000 Unit/0.5ml) 5,000 unit Q12 SQ 08/15/16 21:00 09/14/16 20:59 08/15/16 21:33 5,000 UNIT Miscellaneous (Iv Fluids Completed) 1 ea PRN PRN N/A 08/15/16 21:00 08/15/17 20:59 Metronidazole (Flagyl Tab) 500 mg Q8H PO 08/16/16 04:00 08/26/16 03:59 08/16/16 03:48 500 MG Lisinopril (Zestril Tab) 10 mg QAM PO 08/16/16 09:00 09/15/16 08:59 Review of Systems Review of Systems Constitutional: weakness Eyes: reports: no symptoms ENT: reports: no symptoms reported Cardiovascular: reports: no symptoms reported Respiratory: reports: no symptoms reported Gastrointestinal: see HPI Genitourinary - Female: reports: no symptoms Musculoskeletal: no symptoms reported Integumentary: no symptoms reported Physical Exam Physical Exam General Appearance: + WD/WN, No distress Ears, Nose, Throat: + normal ENT inspection Neck: No abnormal inspection, No tracheal deviation Respiratory: No accessory muscle use, No chest tenderness, No decreased breath sounds Cardiovascular: + other (AICD in place), No JVD, No abnormal rate, No gallop/S3 Abdomen: + other (well healed lower midline incision), + tenderness (mild, generalized), No distension, No rebound Extremities: No abnormal range of motion Neurologic/Psychiatric: No abnormal brazer crawler torch II-XII, No motor deficit/weakness Skin Characteristics: No abnormal color Diagnostics Labs Labs Results Past 24 Hours Test 08/15/16 11:45 08/15/16 12:15 08/15/16 12:25 08/15/16 12:50 Range/Units Influenza Type A Antigen Uninterpretable Neg for Influ A NEG Influenza Type B Antigen Uninterpretable Neg for Influ B NEG White Blood Count 11.64 4.8-10.8 K/uL Red Blood Count 4.98 4.2-5.4 M/uL Hemoglobin 14.7 12.0-16.0 g/dL Hematocrit 42.9 37-47 % Mean Corpuscular Volume 86.1 80-100 fL Mean Corpuscular Hemoglobin 29.5 25-34 pg Mean Corpuscular Hemoglobin Concent 34.3 32-36 g/dl Platelet Count 245 130-400 K/uL Mean Platelet Volume 10.7 7.4-10.4 fL Neutrophils (%) (Auto) 69.0 % Lymphocytes (%) (Auto) 26.1 % Monocytes (%) (Auto) 4.5 % Eosinophils (%) (Auto) 0.0 % Basophils (%) (Auto) 0.1 % Neutrophils # (Auto) 8.03 1.4-6.5 K/uL Lymphocytes # (Auto) 3.04 1.2-3.4 K/uL Monocytes # (Auto) 0.52 0.11-0.59 K/uL Eosinophils # (Auto) 0.00 0-0.5 K/uL Basophils # (Auto) 0.01 0-0.2 K/uL RDW Standard Deviation 40.9 36.4-46.3 fL RDW Coefficient of Variation 13.0 11.5-14.5 % Immature Granulocyte % (Auto) 0.3 % Immature Granulocyte # (Auto) 0.04 0.00-0.02 K/uL Prothrombin Time 11.2 9.0-12.0 SECONDS Prothromb Time International Ratio 1.0 0.9-1.1 Activated Partial Thromboplast Time 26.3 21.0-31.0 SECONDS Partial Thromboplastin Ratio 1.0 Sodium Level 139 136-145 mmol/L Potassium Level 4.0 3.5-5.1 mmol/L Chloride Level 99 98-107 mmol/L Carbon Dioxide Level 28 21-32 mmol/L Anion Gap 12.0 3-11 mmol/L Blood Urea Nitrogen 21 7-18 mg/dl Creatinine 1.10 0.60-1.20 mg/dl Est Creatinine Clear Calc Drug Dose 55.8 ml/min Estimated GFR () 61.9 Estimated GFR (Non- 53.4 BUN/Creatinine Ratio 18.9 10-20 Random Glucose 161 70-99 mg/dl Calcium Level 9.8 8.5-10.1 mg/dl Magnesium Level 1.8 1.8-2.4 mg/dl Total Bilirubin 0.5 0.2-1 mg/dl Aspartate Amino Transf (AST/SGOT) 25 15-37 U/L Alanine Aminotransferase (ALT/SGPT) 31 12-78 U/L Alkaline Phosphatase 52 45-117 U/L Ammonia < 10.0 11-32 umol/L Total Creatine Kinase 171 26-192 U/L Creatine Kinase MB 3.9 0.5-3.6 ng/ml Creatine Kinase MB Ratio 2.3 0-3.0 Total Protein 9.3 6.4-8.2 gm/dl Albumin 3.7 3.4-5.0 gm/dl Globulin 5.6 2.5-4.0 gm/dl Albumin/Globulin Ratio 0.7 0.9-2 Lipase 77 73-393 U/L Troponin I 0.032 0-0.045 ng/ml Pro-B-Type Natriuretic Peptide 946 0-900 pg/ml Test 08/15/16 12:55 08/15/16 21:28 08/16/16 05:51 08/16/16 08:14 Range/Units Bedside Lactic Acid Venous 2.14 0.90-1.70 mmol/L Bedside Glucose 221 76 70-90 mg/dl White Blood Count 10.39 4.8-10.8 K/uL Red Blood Count 4.28 4.2-5.4 M/uL Hemoglobin 12.5 12.0-16.0 g/dL Hematocrit 37.6 37-47 % Mean Corpuscular Volume 87.9 80-100 fL Mean Corpuscular Hemoglobin 29.2 25-34 pg Mean Corpuscular Hemoglobin Concent 33.2 32-36 g/dl RDW Standard Deviation 41.4 36.4-46.3 fL RDW Coefficient of Variation 13.0 11.5-14.5 % Platelet Count 220 130-400 K/uL Mean Platelet Volume 10.5 7.4-10.4 fL Sodium Level 142 136-145 mmol/L Potassium Level 3.7 3.5-5.1 mmol/L Chloride Level 103 98-107 mmol/L Carbon Dioxide Level 31 21-32 mmol/L Anion Gap 8.0 3-11 mmol/L Blood Urea Nitrogen 20 7-18 mg/dl Creatinine 1.10 0.60-1.20 mg/dl Est Creatinine Clear Calc Drug Dose 55.8 ml/min Estimated GFR () 61.9 Estimated GFR (Non- 53.4 BUN/Creatinine Ratio 17.8 10-20 Random Glucose 80 70-99 mg/dl Lactic Acid Level 1.1 0.4-2.0 mmol/L Calcium Level 8.4 8.5-10.1 mg/dl Magnesium Level 2.0 1.8-2.4 mg/dl Lipase 107 73-393 U/L Thyroid Stimulating Hormone (TSH) 2.060 0.300-4.500 uIu/ml Microbiology Results 08/15/16 Blood Culture, Received Pending 08/16/16 C.difficile Toxin B Gene (PCR) - Final, Complete Positive for C. difficile toxin B gene 08/16/16 Shiga Toxin Test, Received Pending 08/16/16 Stool Culture, Received Pending Lab Interpretation Lab Interpretation: labs were reviewed Diagnostic Radiology Diagnostic Radiology CT scan IMPRESSION: 1. There are no acute infectious or inflammatory findings in the abdomen or pelvis. 2. There is a 3.0 cm left adrenal nodule. This is similar in size to the 03/23/2016 examination but has nearly doubled in size as compared to studies dating back to 2011 and 2013. This was pathologically indeterminant on a prior MRI examination. Surgical consultation is advised due to the increase in size. 3. Geographic foci of fatty infiltration are again noted in the liver. 4. Additional changes as above. Impression Assessment and Plan Assessment and Plan 61 yr old woman with multiple medical comorbidities and a left adrenal nodule which has near doubled since 2013 (now 3 cm), but stable in last 3 months ( since Mar 2016). It is unclear if she ever had testing to determine if the nodule is functioning - thus, consider 24 hr urine for metanephrines, catecholamines, cortisol and plasma aldosterone and plasma renin tests. If these are negative (nonfunctioning), then consideration can be given to surgical removal of the nodule with laparoscopic adrenalectomy vs continued short term imaging f/u (repeat CT 3-6 months). Lap adrenalectomy is not done at this institution - she will require outpatient f/u with the minimally invasive surgery team in [place]. All of this explained to patient (although I am not sure how much she understood). Please have her pcp arrange outpatient surgical referral to minimally invasive surgery in [place]. Will sign off. Thank you for this consultation.
[2016-08-16 08:55] LABS: ESTIMATED AVERAGE GLUCOSE 220 mg/dl; HA1C FLAG Normal (Normal)
[2016-08-16] MEDS ORDERED: LISINOPRIL 5 MG TAB PO SCH (09:00)
[2016-08-16] MEDS: POLYETHYLENE (MIRALAX) 17 GM PACK PO SCH ×2 (09:00→20:45)
[2016-08-16] MEDS: INSULIN ASPART 100 UNITS/ML 3 ML PEN SC SCH ×4 (09:12→20:43)
[2016-08-16] MEDS: MAGNESIUM CHLORIDE 64MG DELAYED REL TAB PO SCH ×3 (09:17→20:49)
[2016-08-16] MEDS: CEROVITE ADV FORMULA TAB PO SCH (09:17)
[2016-08-16] MEDS: LISINOPRIL 10 MG TAB PO SCH (09:18)
[2016-08-16] MEDS: ESCITALOPRAM OXALATE 10 MG TAB PO SCH (09:18)
[2016-08-16] MEDS: ISOSORBIDE MONONITRATE 60 MG TABCR PO SCH (09:18)
[2016-08-16] MEDS: ASPIRIN 81 MG ECTAB PO SCH (09:18)
[2016-08-16] MEDS: LACTOBACILLUS ACIDOPHILUS (FLORANEX) TAB PO SCH (09:18)
[2016-08-16] MEDS: METOPROLOL TARTRATE 25 MG TAB PO SCH ×2 (09:18→20:47)
[2016-08-16] MEDS: PANTOprazole SOD 40 MG TAB PO SCH ×2 (09:19→20:49)
[2016-08-16] MEDS: ROSUVASTATIN CALCIUM 10 MG TAB PO SCH (09:19)
[2016-08-16] MEDS: BUMETANIDE 1 MG TAB PO SCH (09:19)
[2016-08-16] MEDS: HEPARIN SOD 5000 UNIT/0.5 ML CARP SQ SCH ×2 (09:20→20:51)
[2016-08-16] MEDS: INSULIN GLARGINE SOLOSTAR 100 UNITS/ML 3 ML PEN SC SCH (09:21)
--- NOTE | 2016-08-16 09:46 | Pharmacy Progress Note ---
Glycemic Control: Progress Nt Date of Service Aug 16, 2016. Scope Glycemic Pharmacist consulted by Dr Baptiste on 08/15/16 for glycemic control and to write orders per [facility] inpatient glycemic control protocol. Objective Accuchecks BSG (last 24hrs): Test 08/15/16 12:15 08/15/16 21:28 08/16/16 05:51 08/16/16 08:14 Random Glucose 161 mg/dl (70-99) 80 mg/dl (70-99) Bedside Glucose 221 mg/dl (70-90) 76 mg/dl (70-90) Laboratory Data (last 24hrs) Test 08/15/16 12:15 08/16/16 05:51 Anion Gap 12.0 mmol/L 8.0 mmol/L BUN/Creatinine Ratio 18.9 17.8 Blood Urea Nitrogen 21 mg/dl 20 mg/dl Creatinine 1.10 mg/dl 1.10 mg/dl Potassium Level 4.0 mmol/L 3.7 mmol/L Sodium Level 139 mmol/L 142 mmol/L White Blood Count 11.64 K/uL 10.39 K/uL Red Blood Count 4.98 M/uL Hemoglobin 14.7 g/dL Hematocrit 42.9 % Mean Corpuscular Volume 86.1 fL Mean Corpuscular Hemoglobin 29.5 pg Mean Corpuscular Hemoglobin Concent 34.3 g/dl Platelet Count 245 K/uL Mean Platelet Volume 10.7 fL Neutrophils (%) (Auto) 69.0 % Lymphocytes (%) (Auto) 26.1 % Monocytes (%) (Auto) 4.5 % Eosinophils (%) (Auto) 0.0 % Basophils (%) (Auto) 0.1 % Neutrophils # (Auto) 8.03 K/uL Lymphocytes # (Auto) 3.04 K/uL Monocytes # (Auto) 0.52 K/uL Eosinophils # (Auto) 0.00 K/uL Basophils # (Auto) 0.01 K/uL Hemoglobin A1c 9.3 % HbA1c: Test 08/16/16 05:51 Hemoglobin A1c 9.3 % (4.5-5.6) H Recent Pertinent Medications Outpatient Anti-diabetic Regimen: * Lantus 80 units BID, Novolog "sliding scale" (max of 140 units/day) * A1c = 9.3% 08/16/16 The patient is currently receiving: * Basal insulin: Lantus 40 units every 12 hours - 20 units this AM for BSG 76mg/dL * Correctional Insulin: Novolog Correction per scale ACHS Goal Range: Low 120 mg/dL - High 160 mg/dL Correction Factor: 20 mg/dL/unit * Prandial insulin: Per carb ratio of 1 unit per 10 grams CHO consumed Risk Factors for Insulin Resistance: * Infection: Viral gastroenteritis, PO Flagyl * IVF: NS @ 80 mL/hr * Diet: Clear liquid diet, Type 2 DM Assessment & Plan ASSESSMENT: 08/15/16 * ADA & AACE recommend a goal blood sugar range 140-180 mg/dl for the majority of critically ill & non-critically ill patients. However, more stringent targets may be selected in individual cases. * Pharmacy has been consulted for glycemic management of the patient in the past. She is very insulin resistant from past records with HbA1c from last year showing very poor glucose control. Repeat HbA1c pending for 08/16/16 with AM labs. * She presents with n/v and is currently on a clear liquid diet. Will reduce her basal dose by 50% to prevent hypoglycemia. Unclear how much Novolog patient uses as an outpatient, but will give a more aggressive weight-based CF and CR for now. Likely will need to titrate insulin once patient resumes regular diet. 08/16/16 * 61 yo type 2 diabetic, uncontrolled, 9.3% A1c. BSG 76mg/dL this morning, so half dose of Lantus administered. I will further decrease patient's dose. * Admitted with likely viral gastroenteritis, clear liquid diet continues * I will also loosen CF * Goal range 120-160mg/dL for A1c 9.3% and pt's age. * Last admission a year ago patient was requiring 175 units of insulin per day PLAN FOR INPATIENT GLYCEMIC CONTROL: * DECREASE LANTUS to 30 units SQ BID - 1/2 dose for BSG < 120mg/dL * Correctional Insulin with NOVOLOG per scale ACHS or Q6hrs while NPO * Goal Range: Low 120 mg/dL - High 160 mg/dL * CHANGE: Correction Factor: 30 mg/dL/unit * Nutritional / Prandial insulin per carb ratio of 1 unit per 10 grams CHO consumed * Please note that the plan above was derived based on current level of insulin resistance and hospital stress. These recommendations are appropriate for inpatient admission only. Plan of care upon discharge will need to be reassessed to avoid potential outpatient hypo/hyperglycemia. Thank you.
[2016-08-16] MEDS: ONDANSETRON INJ 2 MG/ML 2 ML VIAL IV PRN ×2 (09:56→18:47)
--- NOTE | 2016-08-16 10:23 | Progress Note ---
Subjective Date of Service: Aug 16, 2016. Subjective Pt evaluation today including: conversation w/ patient, physical exam, lab review, review of studies, review of inpatient medication list Saw/examined the patient in room 356 Doing okay today +abdominal pain +diarrhea +nausea/vomiting no fevers/chills Problem List Medical Problems: (1) Adrenal nodule Status: Acute (2) Altered mental status Status: Acute (3) Ambulatory dysfunction Status: Acute (4) Blood in stool Status: Acute (5) Cardiomegaly Status: Acute (6) Contusion of multiple sites Status: Acute (7) Dehydration Status: Acute (8) Dehydration Status: Acute (9) Fall Status: Acute (10) Hyperglycemia Status: Acute (11) Influenza-like symptoms Status: Acute (12) Presence of combination internal cardiac defibrillator (ICD) and pacemaker Status: Chronic Social History Problems: (1) Diabetes mellitus Status: Chronic Review of Systems Constitutional: + fatigue, + weakness, No chills, No fever Respiratory: No cough, No shortness of breath, No sputum Cardiac: No chest pain Abdomen: + diarrhea, + nausea, + pain, + vomiting, No GI bleeding, No constipation Medications Current Inpatient Medications Medications (Trade) Dose Ordered Sig/Tera Route Start Time Stop Time Status Last Admin Dose Admin Ioversol (Optiray 320) 125 ml UD PRN IV 08/15/16 11:45 08/19/16 11:44 Acetaminophen (Tylenol Tab) 650 mg Q4H PRN PO 08/15/16 18:15 09/14/16 18:14 Al Hydrox/Mg Hydrox/Simethicone (Maalox Max Susp) 15 ml Q4H PRN PO 08/15/16 18:15 09/14/16 18:14 Magnesium Hydroxide (Milk Of Magnesia Susp) 30 ml Q6H PRN PO 08/15/16 18:15 09/14/16 18:14 Insulin Aspart (novoLOG ASPART) SLIDING SCALE If C... ACHS SC 08/15/16 21:00 09/14/16 20:59 08/15/16 21:31 4 UNITS Glucose (Glucose 40% Gel) 15-30 GRAMS 15 GRAMS... UD PRN PO 08/15/16 18:15 09/14/16 18:14 Glucose (Glucose Chew Tab) 4-8 Tablets 4 Tabl... UD PRN PO 08/15/16 18:15 09/14/16 18:14 Dextrose (Dextrose 50% 50ML Syringe) 25-50ML OF 50% DW IV FOR... UD PRN IV 08/15/16 18:15 09/14/16 18:14 Glucagon (Glucagon Inj) 1 mg UD PRN SQ 08/15/16 18:15 09/14/16 18:14 Miscellaneous Information (Consult Glycemic Management Pharmacy) 1 ea UD PRN N/A 08/15/16 18:32 09/14/16 18:31 Aspirin (Ecotrin Tab) 81 mg QAM PO 08/16/16 09:00 09/15/16 08:59 08/16/16 09:18 81 MG Bumetanide (Bumex Tab) 1 mg QAM PO 08/16/16 09:00 09/15/16 08:59 08/16/16 09:19 1 MG Clopidogrel Bisulfate (plAVix TAB) 75 mg HS PO 08/15/16 21:00 09/14/16 20:59 08/15/16 21:28 75 MG Escitalopram Oxalate (Lexapro Tab) 15 mg QAM PO 08/16/16 09:00 09/15/16 08:59 08/16/16 09:18 15 MG Guaifenesin (Mucinex Contr Rel Tab) 600 mg Q12 PRN PO 08/15/16 18:15 09/14/16 18:14 Hydroxyzine HCl (Vistaril Tab) 12.5 mg HS PO 08/15/16 21:00 09/14/16 20:59 08/15/16 21:28 12.5 MG Isosorbide Mononitrate (Imdur Ext Rel Tab) 60 mg QAM PO 08/16/16 09:00 09/15/16 08:59 08/16/16 09:18 60 MG Lactobacillus Acidophilus (Floranex Tab) 1 tab DAILY PO 08/16/16 09:00 09/15/16 08:59 08/16/16 09:18 1 TAB Lorazepam (Ativan Tab) 0.5 mg TID PRN PO 08/15/16 18:15 09/14/16 18:14 Magnesium Chloride (Slow-Mag Tab) 64 mg TID PO 08/15/16 21:00 09/14/16 20:59 08/16/16 09:17 64 MG Metoprolol Tartrate (Lopressor Tab) 25 mg BID PO 08/15/16 21:00 09/14/16 20:59 08/16/16 09:18 25 MG Multivitamins/ Minerals (Multivitamin W/ Minerals Tab) 1 tab QAM PO 08/16/16 09:00 09/15/16 08:59 08/16/16 09:17 1 TAB Nitroglycerin (Nitrostat Tab) 0.4 mg UD PRN UT 08/15/16 18:15 09/14/16 18:14 Pantoprazole Sodium (Protonix Tab) 40 mg BID PO 08/15/16 21:00 09/14/16 20:59 08/16/16 09:19 40 MG Polyethylene (Miralax Powder Packet) 17 gm BID PO 08/15/16 21:00 09/14/16 20:59 08/15/16 21:28 17 GM Rosuvastatin Calcium (Crestor Tab) 10 mg QAM PO 08/16/16 09:00 09/15/16 08:59 08/16/16 09:19 10 MG Senna/Docusate Sodium 2 tab 2 tab HS PO 08/15/16 21:00 09/14/16 20:59 08/15/16 21:27 2 TAB Sodium Chloride (Nss 1000ml) 1,000 ml @ 80 mls/hr [id number] IV 08/15/16 18:15 09/14/16 18:14 08/16/16 05:39 80 MLS/HR Hydromorphone HCl (Dilaudid Inj) 0.5 mg Q4 PRN IV 08/15/16 18:15 08/29/16 18:14 Ondansetron HCl (Zofran Inj) 4 mg Q4H PRN IV 08/15/16 18:45 09/14/16 18:44 08/16/16 09:56 4 MG Heparin Sodium (Porcine) (Heparin Sq 5000 Unit/0.5ml) 5,000 unit Q12 SQ 08/15/16 21:00 09/14/16 20:59 08/16/16 09:20 5,000 UNIT Miscellaneous (Iv Fluids Completed) 1 ea PRN PRN N/A 08/15/16 21:00 08/15/17 20:59 Metronidazole (Flagyl Tab) 500 mg Q8H PO 08/16/16 04:00 08/26/16 03:59 08/16/16 03:48 500 MG Lisinopril (Zestril Tab) 10 mg QAM PO 08/16/16 09:00 09/15/16 08:59 08/16/16 09:18 10 MG Insulin Glargine (Lantus Solostar Pen) 30 unit Q12 SC 08/16/16 21:00 09/15/16 20:59 Objective Vital Signs Date Time Temp Pulse Resp B/P Pulse Ox O2 Delivery O2 Flow Rate FiO2 08/16/16 07:36 36.7 60 17 145/87 98 Nasal Cannula 2.0 08/16/16 00:34 37.1 61 16 153/92 96 Nasal Cannula 2.0 08/15/16 23:35 Nasal Cannula 2.0 08/15/16 22:44 36.9 62 16 145/61 100 Nasal Cannula 2.0 08/15/16 21:14 98 Nasal Cannula 2.0 08/15/16 20:34 37.1 60 16 173/89 98 Nasal Cannula 2.0 08/15/16 19:35 37.1 60 16 173/89 98 Nasal Cannula 2.0 08/15/16 19:07 183/80 100 08/15/16 18:48 73 16 177/121 96 Nasal Cannula 2.0 08/15/16 15:41 72 20 187/79 100 Room Air 08/15/16 14:36 177/84 08/15/16 13:58 183/83 08/15/16 13:34 71 16 100 Nasal Cannula 2.0 08/15/16 13:28 187/101 08/15/16 13:04 70 16 89 08/15/16 13:02 94 Room Air 08/15/16 12:59 168/94 08/15/16 12:45 64 16 94 08/15/16 12:15 66 17 08/15/16 12:03 66 08/15/16 11:47 189/113 08/15/16 10:54 37.3 74 18 205/107 96 Room Air Physical Exam General Appearance: no apparent distress, + pertinent finding (hirsute) Respiratory/Chest: lungs clear, normal breath sounds, no respiratory distress, no accessory muscle use Cardiovascular: regular rate, rhythm, no edema, no murmur Abdomen: soft, + guarding, + tenderness Extremities: normal inspection, no pedal edema Skin: normal color Laboratory Results Last 24 Hours Test 08/15/16 11:45 08/15/16 12:15 08/15/16 12:25 08/15/16 12:50 Influenza Type A Antigen Uninterpretable Neg for Influ A Influenza Type B Antigen Uninterpretable Neg for Influ B White Blood Count 11.64 K/uL Red Blood Count 4.98 M/uL Hemoglobin 14.7 g/dL Hematocrit 42.9 % Mean Corpuscular Volume 86.1 fL Mean Corpuscular Hemoglobin 29.5 pg Mean Corpuscular Hemoglobin Concent 34.3 g/dl Platelet Count 245 K/uL Mean Platelet Volume 10.7 fL Neutrophils (%) (Auto) 69.0 % Lymphocytes (%) (Auto) 26.1 % Monocytes (%) (Auto) 4.5 % Eosinophils (%) (Auto) 0.0 % Basophils (%) (Auto) 0.1 % Neutrophils # (Auto) 8.03 K/uL Lymphocytes # (Auto) 3.04 K/uL Monocytes # (Auto) 0.52 K/uL Eosinophils # (Auto) 0.00 K/uL Basophils # (Auto) 0.01 K/uL RDW Standard Deviation 40.9 fL RDW Coefficient of Variation 13.0 % Immature Granulocyte % (Auto) 0.3 % Immature Granulocyte # (Auto) 0.04 K/uL Prothrombin Time 11.2 SECONDS Prothromb Time International Ratio 1.0 Activated Partial Thromboplast Time 26.3 SECONDS Partial Thromboplastin Ratio 1.0 Sodium Level 139 mmol/L Potassium Level 4.0 mmol/L Chloride Level 99 mmol/L Carbon Dioxide Level 28 mmol/L Anion Gap 12.0 mmol/L Blood Urea Nitrogen 21 mg/dl Creatinine 1.10 mg/dl Est Creatinine Clear Calc Drug Dose 55.8 ml/min Estimated GFR () 61.9 Estimated GFR (Non- 53.4 BUN/Creatinine Ratio 18.9 Random Glucose 161 mg/dl Calcium Level 9.8 mg/dl Magnesium Level 1.8 mg/dl Total Bilirubin 0.5 mg/dl Aspartate Amino Transf (AST/SGOT) 25 U/L Alanine Aminotransferase (ALT/SGPT) 31 U/L Alkaline Phosphatase 52 U/L Ammonia < 10.0 umol/L Total Creatine Kinase 171 U/L Creatine Kinase MB 3.9 ng/ml Creatine Kinase MB Ratio 2.3 Total Protein 9.3 gm/dl Albumin 3.7 gm/dl Globulin 5.6 gm/dl Albumin/Globulin Ratio 0.7 Lipase 77 U/L Troponin I 0.032 ng/ml Pro-B-Type Natriuretic Peptide 946 pg/ml Test 08/15/16 12:55 08/15/16 21:28 08/16/16 05:51 08/16/16 08:14 Bedside Lactic Acid Venous 2.14 mmol/L Bedside Glucose 221 mg/dl 76 mg/dl White Blood Count 10.39 K/uL Red Blood Count 4.28 M/uL Hemoglobin 12.5 g/dL Hematocrit 37.6 % Mean Corpuscular Volume 87.9 fL Mean Corpuscular Hemoglobin 29.2 pg Mean Corpuscular Hemoglobin Concent 33.2 g/dl RDW Standard Deviation 41.4 fL RDW Coefficient of Variation 13.0 % Platelet Count 220 K/uL Mean Platelet Volume 10.5 fL Sodium Level 142 mmol/L Potassium Level 3.7 mmol/L Chloride Level 103 mmol/L Carbon Dioxide Level 31 mmol/L Anion Gap 8.0 mmol/L Blood Urea Nitrogen 20 mg/dl Creatinine 1.10 mg/dl Est Creatinine Clear Calc Drug Dose 55.8 ml/min Estimated GFR () 61.9 Estimated GFR (Non- 53.4 BUN/Creatinine Ratio 17.8 Random Glucose 80 mg/dl Estimated Average Glucose 220 mg/dl Hemoglobin A1c 9.3 % Lactic Acid Level 1.1 mmol/L Calcium Level 8.4 mg/dl Magnesium Level 2.0 mg/dl Lipase 107 U/L Thyroid Stimulating Hormone (TSH) 2.060 uIu/ml Hepatitis C Antibody Screen NEG Assessment and Plan This is a 61 year old female with PMH of uncontrolled diabetes mellitus, requiring insulin with multiple complications including neuropathy and nephropathy, chronic kidney disease stage III, hx. of CAD s/p CABG and PCI/stent , hx. of ventricular fibrillation s/p implantable cardioverter/defibrillator, HTN, HLD, diastolic CHF, severe SACHA not on CPAP C. Diff Infection 2/2 +positive for c. diff started on flagyl Needs to be on this for 2 weeks 08/15 patient presented with one week hx. of nausea/vomiting/diarrhea Abdominal CT performed; showing adrenal mass, though no other acute processes mild leukocytosis, hemodynamically stable likely related to a viral infection will give IVFs, supportive care, antiemetics start with clears and advance if tolerated IV Dilaudid for abdominal pain - patient uses long-term narcotics check for Influenza PCR check blood culture, UA, urine culture, stool culture, C. Diff Ambulatory Dysfunction likely related to above infection + dehydration supportive care, IVFs PT/OT may need rehab prior to discharge home depending on how she does with therapy Adrenal Incidentaloma 08/16 appreciate surgical eval will need some adrenal functioning testing check for pheochromocytoma, hypercortisol, hyperaldosteronism, vargas's, etc. outpatient f/u with PCP and outpatient surgical evaluation 08/[address] = There is a 3.0 cm left adrenal nodule this has doubled in size from previous CT surgical consult placed for further evaluation Uncontrolled Diabetes Mellitus type 2 with complications including neuropathy and nephropathy on a very high dose of Lantus (80 units BID) currently not tolerating PO diet, will cut in half, 40 units BID insulin sliding scale diabetic diet and clears for now hypoglycemic protocol pharmacy glycemic control consultation Chronic Kidney Disease stage 3 creat at 1.1 seems to be at baseline will give IVFs for now due to vomiting/diarrhea avoid nephrotoxic agents when able CAD with hx. of CABG and stents no chest pain, no shortness of breath continue current cardiac medications Hx. of Ventricular Fibrillation s/p AICD EKG shows atrial paced at times no chest pain/palpitations continue current cardiac medications Diastolic CHF normal LVEF on echo from 2014 stress echo performed in January 2015 with no significant findings currently euvolemic IVFs, monitor for overload HTN blood pressures elevated will give missed doses of medications monitor BP in AM and adjust accordingly DVT ppx subq heparin FULL CODE
[2016-08-16] MEDS: ACETAMINOPHEN 325 MG TAB PO PRN ×2 (10:54→18:07)
[2016-08-16 11:21] LABS: URINE APPEARANCE CLOUDY (CLEAR); URINE BILIRUBIN NEG (NEG); URINE COLOR YELLOW; URINE EPITHELIAL CELL AUTO 0-5 /lpf (0-5); URINE NITRITE NEG (NEG); URINE SPECIFIC GRAVITY 1.033 (1.000-1.030); UROBILINOGEN NEG (NEG)
[2016-08-16 11:34] LABS: MANUAL MICROSCOPIC REQUIRED? NO; REVIEW REQ? YES
[2016-08-16 11:52] LABS: ZZUR CULT IF INDIC CLEAN CATCH YES
[2016-08-16 12:02] LABS: BENZODIAZEPINE, URINE NEG (NEG); COCAINE,URINE NEG (NEG); PHENCYCLIDINE, URINE NEG (NEG)
[2016-08-16 14:06] VITALS: Ht 160 cm; Wt 90.3 kg
[2016-08-16 15:14] VITALS: BP 134/75; PULSE 59; TEMP 36.9; O2SAT 96
[2016-08-16] MEDS: DOCUSATE SODIUM/SENNA 50/8.6MG TAB PO SCH (20:44)
[2016-08-16 20:45] VITALS: PULSE 62
[2016-08-16] MEDS: hydrOXYzine HCL 25 MG TAB PO SCH (20:49)
[2016-08-16] MEDS: CLOPIDOGREL BISULFATE 75 MG TAB PO SCH (20:49)
[2016-08-16] MEDS ORDERED: INSULIN GLARGINE SOLOSTAR 100 UNITS/ML 3 ML PEN SC SCH (21:00)
[2016-08-16 23:32] VITALS: BP 96/65; PULSE 52; TEMP 36.5; O2SAT 94
[2016-08-17] MEDS: METRONIDAZOLE 500 MG TAB PO SCH ×2 (03:54→12:08)
[2016-08-17 04:43] VITALS: O2SAT 96
[2016-08-17 07:04] LABS: HEMATOCRIT 34.5 % (37-47); MEAN CELL VOLUME 87.6 fL (80-100); MEAN CORPUSCULAR HEMOGLOBIN 28.7 pg (25-34); MEAN CORPUSCULAR HGB CONC 32.8 g/dl (32-36); MEAN PLATELET VOLUME 10.6 fL (7.4-10.4); PLATELET COUNT 199 K/uL (130-400); RED BLOOD COUNT 3.94 M/uL (4.2-5.4); WHITE BLOOD COUNT 10.07 K/uL (4.8-10.8)
[2016-08-17] MEDS: SODIUM CHLORIDE 0.9% 1000ML 1,000 ML IV SCH (07:09)
[2016-08-17 07:45] LABS: BUN/CREATININE RATIO 18.9 (10-20); CALCIUM 8.3 mg/dl (8.5-10.1); MAGNESIUM 1.9 mg/dl (1.8-2.4); POTASSIUM 3.4 mmol/L (3.5-5.1)
[2016-08-17 07:57] VITALS: BP 142/69; PULSE 62; TEMP 36.6; O2SAT 96; O2SAT 97
[2016-08-17] MEDS: INSULIN ASPART 100 UNITS/ML 3 ML PEN SC SCH ×2 (08:00→13:41)
[2016-08-17] MEDS: BUMETANIDE 1 MG TAB PO SCH (08:44)
[2016-08-17] MEDS: ROSUVASTATIN CALCIUM 10 MG TAB PO SCH (08:46)
[2016-08-17] MEDS: ASPIRIN 81 MG ECTAB PO SCH (08:51)
[2016-08-17] MEDS: LACTOBACILLUS ACIDOPHILUS (FLORANEX) TAB PO SCH (08:52)
[2016-08-17] MEDS: ISOSORBIDE MONONITRATE 60 MG TABCR PO SCH (08:54)
[2016-08-17] MEDS: METOPROLOL TARTRATE 25 MG TAB PO SCH (08:59)
[2016-08-17] MEDS: POLYETHYLENE (MIRALAX) 17 GM PACK PO SCH (09:00)
[2016-08-17] MEDS: CEROVITE ADV FORMULA TAB PO SCH (09:01)
[2016-08-17] MEDS: PANTOprazole SOD 40 MG TAB PO SCH (09:02)
[2016-08-17] MEDS: MAGNESIUM CHLORIDE 64MG DELAYED REL TAB PO SCH ×2 (09:03→13:45)
[2016-08-17] MEDS: LISINOPRIL 10 MG TAB PO SCH (09:05)
--- NOTE | 2016-08-17 09:14 | Pharmacy Progress Note ---
Glycemic Control: Progress Nt Date of Service Aug 17, 2016. Scope Glycemic Pharmacist consulted by Dr Baptiste on 08/31/16 for glycemic control and to write orders per [facility] inpatient glycemic control protocol. Objective Accuchecks BSG (last 24hrs): Test 08/16/16 12:24 08/16/16 16:50 08/16/16 20:41 08/17/16 06:05 Bedside Glucose 114 mg/dl (70-90) 126 mg/dl (70-90) 115 mg/dl (70-90) Random Glucose 40 mg/dl (70-99) Test 08/17/16 07:52 08/17/16 08:13 08/17/16 08:45 Bedside Glucose 46 mg/dl (70-90) 60 mg/dl (70-90) 126 mg/dl (70-90) Laboratory Data (last 24hrs) Test 08/17/16 06:05 Anion Gap 9.0 mmol/L BUN/Creatinine Ratio 18.9 Blood Urea Nitrogen 19 mg/dl Creatinine 1.00 mg/dl Potassium Level 3.4 mmol/L Sodium Level 144 mmol/L White Blood Count 10.07 K/uL HbA1c: Test 08/16/16 05:51 Hemoglobin A1c 9.3 % (4.5-5.6) H Recent Pertinent Medications Outpatient Anti-diabetic Regimen: * Lantus 80 units SQ BID * NovoLog 30 units SQ TID + SSI * SMBG ~ 3x/day --> Reports highs * Misses insulin doses 2x/day The patient is currently receiving: * Basal insulin: Lantus 30 units every 12 hours Administer 1/2 dose if BSG < 120 * Correctional Insulin: Novolog Correction per scale ACHS Goal Range: Low 120 mg/dL - High 160 mg/dL Correction Factor: 30 mg/dL/unit * Prandial insulin: Per carb ratio of 1 unit per 10 grams CHO consumed Risk Factors for Insulin Resistance: * Infection Risk Factors for Insulin Sensitivity/hypoglycemia: * Reduced Diet * Missing outpatient doses/outpatient regimen reported is probably higher than what is actually needed Assessment & Plan ASSESSMENT: * 61yo T2DM female known to pharmacy from previous admissions/glycemic consults. A1c elevated above goal range but A1c has improved over the past year (12.2% in 08/2015 --> 9.3% in 08/1016) * Pt admitted with viral gastroenteritis and has had reduced PO intake since admission. Outpatient basal insulin doses were cut in half on admission. Basal insulin doses further reduced yesterday and half dose parameter added to prevent hypoglycemia. * Per previous admissions patient typically requires ~ 150+ units of insulin per day with minimal stressors. * Patient has received 35 units of insulin over the past 24hrs * This is all basal insulin * No Prandial insulin given d/t little PO intake. BSGs prior to meals were below goal range therefore CHO coverage was "subtracted off" * Pt with critical low this morning despite reduced insulin dosing. Will need to reduce/titrate doses further. * ADA & AACE recommend a goal blood sugar range 140-180 mg/dl for the majority of critically ill & non-critically ill patients. However, more stringent targets may be selected in individual cases. PLAN FOR INPATIENT GLYCEMIC CONTROL: * No basal insulin this morning d/t critical low and basal insulin still on board from yesterday's dosing. Then, start reduced Basal insulin with LANTUS 15 units SQ BID tonight. * Administer 1/2 dose if BSG < 120 mg/dl * Correctional Insulin with NOVOLOG per scale ACHS or Q6hrs while NPO * Goal Range: Low 140 mg/dL - High 180 mg/dL * Correction Factor: 30 mg/dL/unit * Nutritional / Prandial insulin per carb ratio of 1 unit per 10 grams CHO consumed * Please note that the plan above was derived based on current level of insulin resistance and hospital stress. These recommendations are appropriate for inpatient admission only. Plan of care upon discharge will need to be reassessed to avoid potential outpatient hypo/hyperglycemia. Thank you.
[2016-08-17] MEDS: HEPARIN SOD 5000 UNIT/0.5 ML CARP SQ SCH (09:28)
[2016-08-17] MEDS: ESCITALOPRAM OXALATE 10 MG TAB PO SCH (09:38)
[2016-08-17 10:55] VITALS: O2SAT 97
--- NOTE | 2016-08-17 14:11 | Progress Note ---
Subjective Date of Service: Aug 17, 2016. Subjective Pt evaluation today including: conversation w/ patient, physical exam, lab review, review of studies, review of inpatient medication list Saw/examined the patient in room 356 She is feeling much better than she did when she came in still feeling weak Problem List Medical Problems: (1) Adrenal nodule Status: Acute (2) Altered mental status Status: Acute (3) Ambulatory dysfunction Status: Acute (4) Blood in stool Status: Acute (5) Cardiomegaly Status: Acute (6) Contusion of multiple sites Status: Acute (7) Dehydration Status: Acute (8) Dehydration Status: Acute (9) Fall Status: Acute (10) Hyperglycemia Status: Acute (11) Influenza-like symptoms Status: Acute (12) Presence of combination internal cardiac defibrillator (ICD) and pacemaker Status: Chronic Social History Problems: (1) Diabetes mellitus Status: Chronic Review of Systems Constitutional: + weakness, No chills, No fever Respiratory: No cough, No sputum Cardiac: No chest pain Abdomen: + diarrhea, No nausea, No pain, No vomiting Medications Current Inpatient Medications Medications (Trade) Dose Ordered Sig/Tera Route Start Time Stop Time Status Last Admin Dose Admin Ioversol (Optiray 320) 125 ml UD PRN IV 08/15/16 11:45 08/19/16 11:44 Acetaminophen (Tylenol Tab) 650 mg Q4H PRN PO 08/15/16 18:15 09/14/16 18:14 08/16/16 18:07 650 MG Al Hydrox/Mg Hydrox/Simethicone (Maalox Max Susp) 15 ml Q4H PRN PO 08/15/16 18:15 09/14/16 18:14 Magnesium Hydroxide (Milk Of Magnesia Susp) 30 ml Q6H PRN PO 08/15/16 18:15 09/14/16 18:14 Insulin Aspart (novoLOG ASPART) SLIDING SCALE If C... ACHS SC 08/15/16 21:00 09/14/16 20:59 08/17/16 13:41 6 UNITS Glucose (Glucose 40% Gel) 15-30 GRAMS 15 GRAMS... UD PRN PO 08/15/16 18:15 09/14/16 18:14 08/17/16 08:19 30 GM Glucose (Glucose Chew Tab) 4-8 Tablets 4 Tabl... UD PRN PO 08/15/16 18:15 09/14/16 18:14 Dextrose (Dextrose 50% 50ML Syringe) 25-50ML OF 50% DW IV FOR... UD PRN IV 08/15/16 18:15 09/14/16 18:14 Glucagon (Glucagon Inj) 1 mg UD PRN SQ 08/15/16 18:15 09/14/16 18:14 Miscellaneous Information (Consult Glycemic Management Pharmacy) 1 ea UD PRN N/A 08/15/16 18:32 09/14/16 18:31 Aspirin (Ecotrin Tab) 81 mg QAM PO 08/16/16 09:00 09/15/16 08:59 08/17/16 08:51 81 MG Bumetanide (Bumex Tab) 1 mg QAM PO 08/16/16 09:00 09/15/16 08:59 08/17/16 08:44 1 MG Clopidogrel Bisulfate (plAVix TAB) 75 mg HS PO 08/15/16 21:00 09/14/16 20:59 08/16/16 20:49 75 MG Escitalopram Oxalate (Lexapro Tab) 15 mg QAM PO 08/16/16 09:00 09/15/16 08:59 08/17/16 09:38 15 MG Guaifenesin (Mucinex Contr Rel Tab) 600 mg Q12 PRN PO 08/15/16 18:15 09/14/16 18:14 Hydroxyzine HCl (Vistaril Tab) 12.5 mg HS PO 08/15/16 21:00 09/14/16 20:59 08/16/16 20:49 12.5 MG Isosorbide Mononitrate (Imdur Ext Rel Tab) 60 mg QAM PO 08/16/16 09:00 09/15/16 08:59 08/17/16 08:54 60 MG Lactobacillus Acidophilus (Floranex Tab) 1 tab DAILY PO 08/16/16 09:00 09/15/16 08:59 08/17/16 08:52 1 TAB Lorazepam (Ativan Tab) 0.5 mg TID PRN PO 08/15/16 18:15 09/14/16 18:14 Magnesium Chloride (Slow-Mag Tab) 64 mg TID PO 08/15/16 21:00 09/14/16 20:59 08/17/16 13:45 64 MG Metoprolol Tartrate (Lopressor Tab) 25 mg BID PO 08/15/16 21:00 09/14/16 20:59 08/17/16 08:59 25 MG Multivitamins/ Minerals (Multivitamin W/ Minerals Tab) 1 tab QAM PO 08/16/16 09:00 09/15/16 08:59 08/17/16 09:01 1 TAB Nitroglycerin (Nitrostat Tab) 0.4 mg UD PRN [place] 08/15/16 18:15 09/14/16 18:14 Pantoprazole Sodium (Protonix Tab) 40 mg BID PO 08/15/16 21:00 09/14/16 20:59 08/17/16 09:02 40 MG Polyethylene (Miralax Powder Packet) 17 gm BID PO 08/15/16 21:00 09/14/16 20:59 08/17/16 09:00 17 GM Rosuvastatin Calcium (Crestor Tab) 10 mg QAM PO 08/16/16 09:00 09/15/16 08:59 08/17/16 08:46 10 MG Senna/Docusate Sodium 2 tab 2 tab HS PO 08/15/16 21:00 09/14/16 20:59 08/15/16 21:27 2 TAB Sodium Chloride (Nss 1000ml) 1,000 ml @ 80 mls/hr [id number] IV 08/15/16 18:15 09/14/16 18:14 08/17/16 07:09 80 MLS/HR Hydromorphone HCl (Dilaudid Inj) 0.5 mg Q4 PRN IV 08/15/16 18:15 08/29/16 18:14 08/16/16 18:48 0.5 MG Ondansetron HCl (Zofran Inj) 4 mg Q4H PRN IV 08/15/16 18:45 09/14/16 18:44 08/16/16 18:47 4 MG Heparin Sodium (Porcine) (Heparin Sq 5000 Unit/0.5ml) 5,000 unit Q12 SQ 08/15/16 21:00 09/14/16 20:59 08/17/16 09:28 5,000 UNIT Miscellaneous (Iv Fluids Completed) 1 ea PRN PRN N/A 08/15/16 21:00 08/15/17 20:59 Metronidazole (Flagyl Tab) 500 mg Q8H PO 08/16/16 04:00 08/26/16 03:59 08/17/16 12:08 500 MG Lisinopril (Zestril Tab) 10 mg QAM PO 08/16/16 09:00 09/15/16 08:59 08/17/16 09:05 10 MG Insulin Glargine (Lantus Solostar Pen) 15 unit Q12 SC 08/17/16 21:00 09/16/16 20:59 Objective Vital Signs Date Time Temp Pulse Resp B/P Pulse Ox O2 Delivery O2 Flow Rate FiO2 08/17/16 10:55 97 Room Air 08/17/16 09:53 Room Air 08/17/16 07:57 36.6 62 13 142/69 97 Room Air 08/17/16 04:43 96 Room Air 08/16/16 23:45 Nasal Cannula 2.0 08/16/16 23:32 36.5 52 18 96/65 94 Nasal Cannula 2.0 08/16/16 20:45 62 08/16/16 15:45 Room Air 08/16/16 15:14 36.9 59 16 134/75 96 Room Air Physical Exam General Appearance: no apparent distress, + pertinent finding (hirsute) Respiratory/Chest: lungs clear, normal breath sounds, no respiratory distress, no accessory muscle use Cardiovascular: regular rate, rhythm, no edema, no murmur Abdomen: normal bowel sounds, non tender, soft Laboratory Results Last 24 Hours Test 08/16/16 16:50 08/16/16 20:41 08/17/16 06:05 08/17/16 07:52 Bedside Glucose 126 mg/dl 115 mg/dl 46 mg/dl White Blood Count 10.07 K/uL Red Blood Count 3.94 M/uL Hemoglobin 11.3 g/dL Hematocrit 34.5 % Mean Corpuscular Volume 87.6 fL Mean Corpuscular Hemoglobin 28.7 pg Mean Corpuscular Hemoglobin Concent 32.8 g/dl RDW Standard Deviation 41.8 fL RDW Coefficient of Variation 12.9 % Platelet Count 199 K/uL Mean Platelet Volume 10.6 fL Sodium Level 144 mmol/L Potassium Level 3.4 mmol/L Chloride Level 106 mmol/L Carbon Dioxide Level 29 mmol/L Anion Gap 9.0 mmol/L Blood Urea Nitrogen 19 mg/dl Creatinine 1.00 mg/dl Est Creatinine Clear Calc Drug Dose 61.4 ml/min Estimated GFR () 69.4 Estimated GFR (Non- 59.9 BUN/Creatinine Ratio 18.9 Random Glucose 40 mg/dl Calcium Level 8.3 mg/dl Magnesium Level 1.9 mg/dl Test 08/17/16 08:13 08/17/16 08:45 08/17/16 11:55 Bedside Glucose 60 mg/dl 126 mg/dl 141 mg/dl Assessment and Plan This is a 61 year old female with PMH of uncontrolled diabetes mellitus, requiring insulin with multiple complications including neuropathy and nephropathy, chronic kidney disease stage III, hx. of CAD s/p CABG and PCI/stent , hx. of ventricular fibrillation s/p implantable cardioverter/defibrillator, HTN, HLD, diastolic CHF, severe SACHA not on CPAP C. Diff Infection 3 continue Flagyl for a total of [address] Brock from - let him know about the plan to discharge patient today she feels good about getting to [facility] 08/16 +positive for c. diff started on flagyl Needs to be on this for 2 weeks 08/15 patient presented with one week hx. of nausea/vomiting/diarrhea Abdominal CT performed; showing adrenal mass, though no other acute processes mild leukocytosis, hemodynamically stable likely related to a viral infection will give IVFs, supportive care, antiemetics start with clears and advance if tolerated IV Dilaudid for abdominal pain - patient uses long-term narcotics check for Influenza PCR check blood culture, UA, urine culture, stool culture, C. Diff Ambulatory Dysfunction likely related to above infection + dehydration supportive care, IVFs PT/OT may need rehab prior to discharge home depending on how she does with therapy Adrenal Incidentaloma 08/16 appreciate surgical eval will need some adrenal functioning testing check for pheochromocytoma, hypercortisol, hyperaldosteronism, vargas's, etc. outpatient f/u with PCP and outpatient surgical evaluation 08/[address] = There is a 3.0 cm left adrenal nodule this has doubled in size from previous CT surgical consult placed for further evaluation Uncontrolled Diabetes Mellitus type 2 with complications including neuropathy and nephropathy on a very high dose of Lantus (80 units BID) currently not tolerating PO diet, will cut in half, 40 units BID insulin sliding scale diabetic diet and clears for now hypoglycemic protocol pharmacy glycemic control consultation Chronic Kidney Disease stage 3 creat at 1.1 seems to be at baseline will give IVFs for now due to vomiting/diarrhea avoid nephrotoxic agents when able CAD with hx. of CABG and stents no chest pain, no shortness of breath continue current cardiac medications Hx. of Ventricular Fibrillation s/p AICD EKG shows atrial paced at times no chest pain/palpitations continue current cardiac medications Diastolic CHF normal LVEF on echo from 2014 stress echo performed in January 2015 with no significant findings currently euvolemic IVFs, monitor for overload HTN blood pressures elevated will give missed doses of medications monitor BP in AM and adjust accordingly DVT ppx subq heparin FULL CODE
[2016-08-17] MEDS ORDERED: MTR500 PO (14:13)
[2016-08-17] MEDS ORDERED: INSDGIPEN SC (14:13)
[2016-08-17] MEDS ORDERED: LISI-729 PO (14:13)
--- NOTE | 2016-08-17 14:16 | Discharge Instructions ---
Discharge Instructions Admission Reason for Admission: Flu Sx Discharge Discharge Diagnosis / Problem: C. diff infection, uncontrolled DM2, adrenal incidentaloma Discharge Goals Goal(s): Decrease discomfort, Improve function Activity Recommendations Activity Limitations: resume your previous activity . Instructions / Follow-Up Instructions / Follow-Up Patient should have blood sugars checked with meals and HS Lantus 15 units BID is a much lower dose than at home - likely due to compliance Flagyl should be continued for 10 more days to total 14 for C. diff Patient has an adrenal mass - blood work should be done as an outpatient to check if it is a functioning mass as well as outpatient surgical evaluation Current Hospital Diet Patient's current hospital diet: Diabetes Type 2 Diet, Clear Liquid Diet Discharge Diet Recommended Diet: Diabetes Type 2 Diet Pending Studies Studies pending at discharge: no Laboratory Results Hemoglobin A1c Test 08/16/16 05:51 Range/Units Estimated Average Glucose 220 mg/dl Hemoglobin A1c 9.3 H 4.5-5.6 % Medical Emergencies . Who to Call and When: Medical Emergencies: If at any time you feel your situation is an emergency, please call 911 immediately. . Non-Emergent Contact Non-Emergency issues call your: Primary Care Provider . . "Provider Documentation" section prepared by Caryn Baptiste. VTE Core Measure Inpt VTE Proph given/why not?: Unfractionated heparin SQ
--- NOTE | 2016-08-17 14:18 | Discharge Summary ---
Discharge Summary Admission Date: Aug 15, 2016 at 19:52 Discharge Date: Aug 17, 2016 Discharge Disposition: Rehab Principal Diagnosis: C. diff infection Uncontrolled DM2 Adrenal Incidentaloma Medication Reconciliation New Medications: Metronidazole (Metronidazole) 500 Mg Tab 500 MG PO Q8H for 10 Days, #30 TAB Changed Medications: Insulin Glargine (Lantus Solostar) 100 Unit/Ml Inj 15 UNITS SC AMPM for 30 Days, #1 PEN (Changed from: 80 UNITS) Lisinopril (Prinivil) 5 Mg Tab 10 MG PO QAM for 30 Days, #60 TABS (Changed from: 5 MG) Continued Medications: Aspirin (Aspirin Ec) 81 Mg Tab 81 MG PO QAM Bumetanide (Bumex) 1 Mg Tab 1 MG PO QAM Calcium Carbonate-Cholecalcife (Caltrate 600+D) 1 Tab Tab 1 TABLET PO BID Clopidogrel Bisulfate (Plavix) 75 Mg Tab 75 MG PO HS Difluprednate (Durezol) 0.05 % Emu 1 DOSE DIRECTED Escitalopram Oxalate (Lexapro) 10 Mg Tab 15 MG PO QAM, TAB Guaifenesin Ext Rel (Mucinex Ext Rel) 600 Mg Tab 600 MG PO Q12 PRN for Nasal Congestion, TAB Hydroxyzine Hcl (Atarax) 25 Mg Tab 12.5 MG PO HS, TAB May increase to 25 mg as tolerated Insulin Aspart (Novolog Flexpen) 100 Units/Ml Inj 1 DOSE SC SLIDING SCALE MAX OF 140 UNITS DAILY Isosorbide Mononitrate (Imdur Ext Rel) 60 Mg Tab 60 MG PO QAM, TAB Ketoconazole (Topical) (Ketoconazole) 2 % Sha 1 APPLN TOP DAILY Lactobacillus (Floranex) 1 Tab Tab 1 TAB PO DAILY Lorazepam (Ativan) 0.5 Mg Tab 0.5 MG PO TID PRN for Anxiety, TAB Magnesium Chloride (Slow-Mag Tab) 64 Mg Tabcr 64 MG PO TID, 0 Refills Metoprolol Tartrate (Lopressor) (Lopressor) 25 Mg Tab 25 MG PO BID, 0 Refills Multivitamins/Minerals (Mvi With Minerals) Tab 1 TABLET PO QAM, TAB Nitroglycerin (Nitrostat) 0.4 Mg Tab 0.4 MG UT UD PRN for Chest Pain, 0 Refills Pantoprazole (Protonix) 40 Mg Tab 40 MG PO BID, 0 Refills Polyethylene Glycol 3350 (Miralax) 1 Pow Pow 17 MG PO BID Rosuvastatin Calcium (Crestor) 10 Mg Tab 10 MG PO QAM Sennosides-Docusate Sodium (Senna Plus) 1 Tab Tab 2 TAB PO Admission Information HPI (per Admitting provider): This is a 61 year old female with PMH of CAD s/p CABG and PCI/stenting, hx. of ventricular fibrillation s/p implantable cardioverter/defibrillator, insulin dependent DM2, HTN presents with abdominal pain, nausea/vomiting, diarrhea, weakness and ambulatory dysfunction. Patient states that the weakness and n/v/d began about a week prior but started to worsen prior to arrival in the ER. She tells me this is associated with abdominal pain diffusely; unable to pinpoint where the pain is. Patient stated that she felt better after receiving fluids and pain medications in the ER and wanted to go home. She tried to get up and ambulate, but had difficulty doing it; +weakness persists Physical Exam (per Admitting): General Appearance: no apparent distress, + pertinent finding (+weakness/ lethargic) Head: normocephalic, atraumatic, + pertinent finding (+facial hair growth) Eyes: normal inspection ENT: normal ENT inspection, hearing grossly normal Neck: supple Respiratory/Chest: chest non-tender, lungs clear, normal breath sounds, no respiratory distress, no accessory muscle use, + pertinent finding (+ implantable defibrillator at left chest wall) Cardiovascular: regular rate, rhythm, no edema, no murmur Abdomen/GI: normal bowel sounds, soft, + tenderness, + guarding Extremities/Musculoskelatal: no calf tenderness, normal capillary refill, no pedal edema Neurologic/Psych: no motor/sensory deficits, alert, + pertinent finding (+ weakness/lethargic) Skin: normal color Hospital Course This is a 61 year old female with PMH of uncontrolled diabetes mellitus, requiring insulin with multiple complications including neuropathy and nephropathy, chronic kidney disease stage III, hx. of CAD s/p CABG and PCI/stent , hx. of ventricular fibrillation s/p implantable cardioverter/defibrillator, HTN, HLD, diastolic CHF, severe SACHA not on CPAP C. Diff Infection 2/3 continue Flagyl for a total of [address] Brock from - let him know about the plan to discharge patient today she feels good about getting to [facility] 2/2 +positive for c. diff started on flagyl Needs to be on this for 2 weeks 08/15 patient presented with one week hx. of nausea/vomiting/diarrhea Abdominal CT performed; showing adrenal mass, though no other acute processes mild leukocytosis, hemodynamically stable likely related to a viral infection will give IVFs, supportive care, antiemetics start with clears and advance if tolerated IV Dilaudid for abdominal pain - patient uses long-term narcotics check for Influenza PCR check blood culture, UA, urine culture, stool culture, C. Diff Ambulatory Dysfunction likely related to above infection + dehydration supportive care, IVFs PT/OT may need rehab prior to discharge home depending on how she does with therapy Adrenal Incidentaloma 08/16 appreciate surgical eval will need some adrenal functioning testing check for pheochromocytoma, hypercortisol, hyperaldosteronism, vargas's, etc. outpatient f/u with PCP and outpatient surgical evaluation 08/[address] = There is a 3.0 cm left adrenal nodule this has doubled in size from previous CT surgical consult placed for further evaluation Uncontrolled Diabetes Mellitus type 2 with complications including neuropathy and nephropathy on a very high dose of Lantus (80 units BID) currently not tolerating PO diet, will cut in half, 40 units BID insulin sliding scale diabetic diet and clears for now hypoglycemic protocol pharmacy glycemic control consultation Chronic Kidney Disease stage 3 creat at 1.1 seems to be at baseline will give IVFs for now due to vomiting/diarrhea avoid nephrotoxic agents when able CAD with hx. of CABG and stents no chest pain, no shortness of breath continue current cardiac medications Hx. of Ventricular Fibrillation s/p AICD EKG shows atrial paced at times no chest pain/palpitations continue current cardiac medications Diastolic CHF normal LVEF on echo from 2014 stress echo performed in January 2015 with no significant findings currently euvolemic IVFs, monitor for overload HTN blood pressures elevated will give missed doses of medications monitor BP in AM and adjust accordingly DVT ppx subq heparin FULL CODE Total time spent on discharge = 45 minutes This includes examination of the patient, discharge planning, medication reconciliation, and communication with other providers. Discharge Instructions Patient should have blood sugars checked with meals and HS Lantus 15 units BID is a much lower dose than at home - likely due to compliance Flagyl should be continued for 10 more days to total 14 for C. diff Patient has an adrenal mass - blood work should be done as an outpatient to check if it is a functioning mass as well as outpatient surgical evaluation
[2016-08-17 15:12] VITALS: BP 96/54; PULSE 66; TEMP 37.3; O2SAT 95
[2016-08-17 16:03] VITALS: BP 96/54; PULSE 66; TEMP 37.3; O2SAT 95
[2016-08-17] MEDS ORDERED: INSULIN GLARGINE SOLOSTAR 100 UNITS/ML 3 ML PEN SC SCH (21:00)
[2016-08-18 23:13] LABS: COD UR NEGATIVE NG/ML (CUTOFF=50); HYDROCOD UR NEGATIVE NG/ML (CUTOFF=50); HYDROMOR UR 302 NG/ML (CUTOFF=50); MORPHINE UR NEGATIVE NG/ML (CUTOFF=50); NORHYDROCODONE CONF UR NEGATIVE NG/ML (CUTOFF=50); OXYMORPH UR NEGATIVE NG/ML (CUTOFF=50)
[2016-08-19 14:36] LABS: NORMETANEPHRINE PLASMA 109 pg/mL (<=148); TOTAL METANEPHRINE PLASMA 109 pg/mL (<=205)
== END 2016-08-17 17:15 ==
LOC: ENRESERVDT → ENRESERVTM → EDBD 10:45 → C.EDC 10:46 → C.MSW 19:52
PROVIDERS: ADMIT Family Medicine; ATTEND Family Medicine
DX: A04.7 Enterocolitis due to Clostridium difficile (principal); I25.10 Atherosclerotic heart disease of native coronary artery without angina pectoris; Z95.5 Presence of coronary angioplasty implant and graft; Z95.1 Presence of aortocoronary bypass graft; Z95.810 Presence of automatic (implantable) cardiac defibrillator; E78.5 Hyperlipidemia, unspecified; G47.33 Obstructive sleep apnea (adult) (pediatric); I50.30 Unspecified diastolic (congestive) heart failure; R26.9 Unspecified abnormalities of gait and mobility; J45.909 Unspecified asthma, uncomplicated; N18.3 Chronic kidney disease, stage 3 (moderate); F32.9 Major depressive disorder, single episode, unspecified; E11.21 Type 2 diabetes mellitus with diabetic nephropathy; E11.319 Type 2 diabetes mellitus with unspecified diabetic retinopathy without macular edema; I12.9 Hypertensive chronic kidney disease with stage 1 through stage 4 chronic kidney disease, or unspecified chronic kidney disease; Z79.899 Other long term (current) drug therapy; E11.40 Type 2 diabetes mellitus with diabetic neuropathy, unspecified; E66.9 Obesity, unspecified; M35.3 Polymyalgia rheumatica; E78.00 Pure hypercholesterolemia, unspecified; Z83.3 Family history of diabetes mellitus; Z82.49 Family history of ischemic heart disease and other diseases of the circulatory system; Z87.891 Personal history of nicotine dependence; Z79.82 Long term (current) use of aspirin; Z79.02 Long term (current) use of antithrombotics/antiplatelets; Z79.4 Long term (current) use of insulin; E27.9 Disorder of adrenal gland, unspecified

== ENCOUNTER 2016-09-17 13:40 | Inpatient (IN) | payer OTHER ==
[~2016-09-17] VITALS: Ht 160 cm; Wt 85.0 kg
[~2016-09-17 13:40] MED LIST changes: -ALBU1AER9 INH; -CETI10TA84 PO; -CLOB0.0512 TOP; -FLUT110A INH; -HYDR-4683 TOP; -INSDGI SC; +INSDGIPEN SC; -IPRA0.037 NAE; -MENT4GEL TOP; -METR0.754 TOP; +MTR500 PO; -NVLGI SC; +NVLGI/PEN SC
[2016-09-17 14:47] VITALS: BMI 33.2
[2016-09-17] MEDS ORDERED: ONDANSETRON INJ 2 MG/ML 2 ML VIAL IV PRN (15:00)
[2016-09-17 15:06] VITALS: BP 153/79; PULSE 118; TEMP 36.8; O2SAT 98
[2016-09-17] MEDS ORDERED: BISA10SU3 PR (15:08)
[2016-09-17] MEDS ORDERED: ALBU18002 INH (15:08)
[2016-09-17] MEDS ORDERED: OXYC-643 PO (15:08)
[2016-09-17] MEDS ORDERED: INSDGIPEN SC (15:08)
[2016-09-17] MEDS ORDERED: NITROGLYCERIN 0.4 MG SL PER TAB CHARGE UT PRN (15:30)
[2016-09-17] MEDS ORDERED: DEXTROSE 50% 50 ML SYR IV PRN (15:30)
[2016-09-17] MEDS ORDERED: ALBUTEROL HFA INHALER 8.5 GM INH PRN (15:30)
[2016-09-17] MEDS ORDERED: BISACODYL 10 MG SUPP PR PRN (15:30)
[2016-09-17] MEDS ORDERED: GLUCOSE 10 TABS/TUBE PO PRN (15:30)
[2016-09-17] MEDS ORDERED: GLUCOSE 40% GEL 15 GM TUBE PO PRN (15:30)
[2016-09-17] MEDS ORDERED: LORAZEPAM 0.5 MG TAB PO PRN (15:30)
[2016-09-17] MEDS ORDERED: GLUCAGON FOR INJ 1 MG VIAL SQ PRN (15:30)
[2016-09-17 15:45] LABS: BASO % 0.5 %; BASO ABS # 0.05 K/uL (0-0.2); COMPLETE YES; EOS % 0.4 %; HEMATOCRIT 39.3 % (37-47); IG% 0.4 %; LYMPH % 26.5 %; LYMPH ABS # 2.92 K/uL (1.2-3.4); MEAN CELL VOLUME 88.1 fL (80-100); MEAN CORPUSCULAR HEMOGLOBIN 29.8 pg (25-34); MEAN CORPUSCULAR HGB CONC 33.8 g/dl (32-36); MEAN PLATELET VOLUME 10.8 fL (7.4-10.4); MONO % 6.3 %; NEUT % 65.9 %; PLATELET COUNT 170 K/uL (130-400); RED BLOOD COUNT 4.46 M/uL (4.2-5.4); WHITE BLOOD COUNT 11.01 K/uL (4.8-10.8)
--- NOTE | 2016-09-17 15:47 | History and Physical ---
History & Physical Date & Time of Service: Sep 17, 2016 at 15:32 Chief Complaint: Refractory Abdominal And Back Pain, Weakness Primary Care Physician: Reginaldo Ramirez D.O. History of Present Illness Source: patient, family, clinic records, hospital records Patient seen and examined. 61 year old female with PMHx of IDDM, CAD s/p CABG, HTN, HLD, diastolic CHF, h/o Vtach s/p ICD, GERD, CKD stage 3, and other problems listed below presents as a direct admission from Dr. Ramirez's office for intractable back pain, abdominal pain and ambulatory dysfunction for many weeks. Patient was admitted from 08/15-08/17 from [facility]. She was treated with metronidazole and discharged to [facility] d/t her deconditioned state. Apparently since then the patient has been too weak to walk. Prior to admission on 08/15 patient was ambulating with a walker with little difficulty. Since then she takes multiple assistants to walk and has been mostly in a wheel chair. She reports diffuse back pain which she states is "on the inside," she denies falls or injuries. She also reports diffuse sharp abdominal pain for 3-4 days. She reports she has not been eating well and is losing weight. She denies fevers, chills, numbness, tingling, falls, injuries, chest pain, SOB, nausea, vomiting, dysuria, calf pain and edema. She reports she is still having some diarrhea. Patient will be admitted for further workup and treatment. Past Medical/Surgical History Medical Problems: (1) Aortocoronary Bypass Status: Resolved (2) Asthma, Unspecified Status: Chronic (3) CKD (chronic kidney disease), stage III Status: Chronic (4) Coronary atherosclerosis of [place] coronary vessel Permanent Comment: s/p CABG (SVG to OM, SVT to OM2, MEHTA to LAD) on 04/05/1998 s/p HEIDY x2 (LM and LAD) in 06/2012 Status: Chronic (5) Depression Status: Chronic (6) Diab Nany Wo Compl, Type Ii Or Unspec Type, Not Uncntrld Status: Chronic (7) Diabetic nephropathy Status: Chronic (8) Diabetic retinopathy Status: Chronic (9) GERD (gastroesophageal reflux disease) Status: Chronic (10) Hypertension Nos Status: Chronic (11) Neuropathy in diabetes Status: Chronic (12) Obesity, Class II, BMI 35-39.9, with comorbidity Status: Chronic (13) Obstructive Sleep Apnea (Adult) (Pediatric) Status: Chronic (14) Pacemaker Status: Resolved (15) Polymyalgia rheumatica Status: Chronic (16) Presence of combination internal cardiac defibrillator (ICD) and pacemaker Status: Chronic (17) Pure Hypercholesterolem Status: Chronic (18) Ventricular fibrillation Permanent Comment: VF arrest x2 s/p ICD placement Status: Chronic Surgical Problems: (1) H/O eye surgery Status: Chronic (2) History of appendectomy Status: Resolved (3) History of cholecystectomy Status: Resolved (4) History of hysterectomy Status: Resolved (5) History of hysterectomy Status: Chronic (6) S/P triple vessel bypass Status: Resolved Social History Problems: (1) Diabetes mellitus Status: Chronic Family History Diabetes mellitus FATHER BROTHER FH: cancer FH: lung disease FHx: heart disease MOTHER Hypertension MOTHER Kidney disease Kidney stones Social History Smoking Status: Never Smoker Drug Use: none Marital Status: Housing status: lives alone Occupational Status: disabled Immunizations History of Influenza Vaccine: N/A History of Tetanus Vaccine?: No History of Pneumococcal: No History of Hepatitis B Vaccine: No Allergies Coded Allergies: BEE STING (Verified Allergy, Severe, SWELLING, 05/05/16) Lidocaine (Verified Allergy, Severe, ANAPHYLAXIS, 05/05/16) Morphine (Verified Allergy, Mild, itching, 05/05/16) Tramadol (Verified Allergy, Mild, ITCHING, 05/05/16) Trazodone (Verified Allergy, Mild, ITCHING, 05/05/16) Home Medications Scheduled Aspirin (Aspirin Ec), 81 MG PO QAM Calcium Carbonate-Cholecalcife (Caltrate 600+D), 1 TABLET PO BID Clopidogrel Bisulfate (Plavix), 75 MG PO HS Difluprednate (Durezol), 1 DOSE DIRECTED Escitalopram Oxalate (Lexapro), 15 MG PO QAM Hydroxyzine Hcl (Atarax), 12.5 MG PO HS Insulin Aspart (Novolog Flexpen), 1 DOSE SC SLIDING SCALE Insulin Glargine (Lantus Solostar), 80 UNITS SC AMPM Isosorbide Mononitrate (Imdur Ext Rel), 60 MG PO QAM Ketoconazole (Topical) (Ketoconazole), 1 APPLN TOP DAILY Lactobacillus (Floranex), 1 TAB PO DAILY Lisinopril (Prinivil), 10 MG PO QAM Magnesium Chloride (Slow-Mag Tab), 64 MG PO TID Metoprolol Tartrate (Lopressor) (Lopressor), 25 MG PO BID Multivitamins/Minerals (Mvi With Minerals), 1 TABLET PO QAM Pantoprazole (Protonix), 40 MG PO BID Polyethylene Glycol 3350 (Miralax), 17 MG PO BID Rosuvastatin Calcium (Crestor), 10 MG PO QAM Sennosides-Docusate Sodium (Senna Plus), 2 TAB PO HS Scheduled PRN Albuterol Sulfate (Proair Respiclick), 2 PUFFS INH Q4H PRN for Wheezing Bisacodyl (Dulcolax), 1 SUPP AL WK PRN for Constipation Guaifenesin Ext Rel (Mucinex Ext Rel), 600 MG PO Q12 PRN for Nasal Congestion Lorazepam (Ativan), 0.5 MG PO TID PRN for Anxiety Nitroglycerin (Nitrostat), 0.4 MG UT UD PRN for Chest Pain Oxycodone/Acetaminophen 5MG/325MG (Oxycodone/Acetaminophen 5MG/325MG), 1 TABLET PO Q6H PRN for Pain Review of Systems See above for pertinent positives & negatives. A total of 10 systems reviewed and were otherwise negative. Physical Exam Vital Signs Date Time Temp Pulse Resp B/P Pulse Ox O2 Delivery O2 Flow Rate FiO2 09/17/16 15:06 36.8 118 20 153/79 98 Room Air 09/17/16 14:47 Room Air General Appearance: + pertinent finding (WD/WN 61 year old female lying in bed in NAD with family at bedside ) Head: normocephalic, atraumatic Eyes: PERRL, sclerae normal ENT: hearing grossly normal, pharynx normal Neck: supple, no JVD Respiratory/Chest: chest non-tender, lungs clear, normal breath sounds, no respiratory distress, no accessory muscle use Cardiovascular: regular rate, rhythm, no edema, no gallop, no JVD, normal peripheral pulses, + systolic murmur Abdomen/GI: normal bowel sounds, soft, + tenderness (suprapubic ) Back: normal inspection, no muscle spasm Extremities/Musculoskelatal: no calf tenderness, normal capillary refill, no pedal edema Neurologic/Psych: alert, oriented x 3, + pertinent finding (blunted-flat affect. Moves all extremities appropriately against gravity, sensation intact. ) Skin: normal color, warm/dry, no rash Lymphatic: no adenopathy Diagnostics Laboratory Results Results Past 24 Hours Test 09/17/16 14:59 09/17/16 15:00 Range/Units Microbiology Results 09/17/16 C.difficile Toxin B Gene (PCR), Ordered Pending 09/17/16 Shiga Toxin Test, Ordered Pending 09/17/16 Stool Culture, Ordered Pending EKG Sinus Tachycardia 104 BPM, QTc 426 Impression Assessment and Plan 61 year old female seen as a direct admission for ambulatory dysfunction, back pain, abdominal pain AMBULATORY DYSFUNCTION/INTRACTABLE BACK PAIN -admit to med/surg -? cause, was in [facility] for 2 weeks last month, but per family didn't ambulate much there and hasn't ambulated at all since discharge home -Check CT L-spine, T-spine -PT/OT Evals -Pain management consult -continue Percocet -fall precautions -additional management following admission workup GENERALIZED ABDOMINAL PAIN -? cause -check CBC, CMP, Lipase -CT a/p pending -recent C. diff- check stool studies -check UA -CT A/P pending, keep npo until resulted IDDM -A1c 9.3, had hypoglycemic episodes during previous admission -SSI coverage -continue Lantus -pharmacy consulted for glycemic control -npo until CT a/p CKD STAGE 3 -baseline crea 1.1 -repeat pending -avoid nephrotoxic agents as able CAD S/P CABG/STENTS -stable -follows with Dr. Schultz -continue BB, ASA, Statin, Plavix, Imdur -nitro prn H/O VENTRICULAR TACHYCARDIA -s/p ICD -stable DIASTOLIC CHF -appears euvolemic -currently not on diuretics HTN -slightly elevated -? secondary to pain -continue home medications ADRENAL INCIDENTALOMA -keep outpatient followup DEPRESSION -continue Lexapro -Ativan prn DVT PROPHYLAXIS: Sq heparin CODE STATUS: FULL CODE DISPO:In my clinical judgment this beneficiary meets acute admission criteria, established by [facility], that includes being hospitalized through two midnights. Discharge planning eval, PT/OT Patient seen in collaboration with Dr. Fernandez Attending Note: Patient is a 61 Yr female with multiple comorbidities presents with history of intractable back pain, abdominal pain and ambulatory dysfunction since many weeks. Had recent c.diff infection and completed treatment. Patient is slow to respond and is a poor historian. Recently discharged from [facility] but weakness persisted. Also reports generalized abdominal pain, decreased oral intake and weight loss lately. CT abd showed chronic 3.0 cm left adrenal nodule and rectosigmoid fecal impaction. Physical Exam: General Appearance:Moderately built and nourished, no apparent distress, slow to respond Head: normocephalic, Atraumatic Eyes: normal inspection, EOMI, PERRLA Neck: supple, Trachea midline Respiratory/Chest: Normal breath sounds, CTA, No accessory muscle use Cardiovascular: S1, S2, + systolic murmur Abdomen/GI:Soft, mild diffuse tender, Bowel sounds present, No guarding/rigidity Extremities/Musculoskelatal:normal inspection, no edema Neurologic/Psych:grossly no focal neurological deficits Skin:normal color,warm Assessment and Plan: AMBULATORY DYSFUNCTION/INTRACTABLE BACK PAIN Unclear etiology Imaging negative for any acute process Pain control PT/OT May need placement Consider Neurology consult Vs Neuromuscular work up as outpatient GENERALIZED ABDOMINAL PAIN Likely secondary to constipation from pain meds CT abd findings suggestive for rectosigmoid impaction, No bowel obstruction Try fleet enema, Gently IV fluids Bowel regimen Minimize narcotics Follow up stool studies ADRENAL INCIDENTALOMA Needs outpatient followup and possible surgery since it doubled in size since 2011 I personally reviewed the record. Patient is interviewed and examined at bedside. Patient's care is coordinated with Yojana Arita PA-C. Please refer to the documentation above for details of patient's presentation and for discussion of other issues. Advanced Directives Existing Living Will: Yes Existing Power of Trial Court Judge: Yes VTE Prophylaxis VTE Risk Assessment Done? Y/N: Yes Risk Level: Moderate
[2016-09-17 15:50] VITALS: BP 132/78; PULSE 98; TEMP 36.5; O2SAT 98
[2016-09-17 15:54] LABS: INR 1.1 (0.9-1.1); PROTHROMBIN TIME (PATIENT) 11.4 SECONDS (9.0-12.0)
[2016-09-17] MEDS ORDERED: PHARMACY GLYCEMIC MGMT CONSULT SCH (16:07)
--- NOTE | 2016-09-17 16:07 | DIAGNOSTIC IMAGING REPORT ---
THORACIC SPINE CT CT DOSE: HISTORY: Pain back pain TECHNIQUE: Multiaxial CT images of the thoracic spine were performed and reformatted in the sagittal and coronal plane without the use of contrast. COMPARISON: None. FINDINGS: No fractures. No subluxation. Paraspinal soft tissues are unremarkable. Moderate degenerative disc change. Moderate degenerative change posterior elements IMPRESSION: Moderate degenerative change throughout the entire thoracic region. No acute process. Electronically signed by: James Nickerson M.D. 09/17/2016 4:05 PM Dictated Date/Time: 09/17/2016 4:03 PM
--- NOTE | 2016-09-17 16:08 | DIAGNOSTIC IMAGING REPORT ---
LUMBAR SPINE CT CT DOSE: HISTORY: Pain back pain TECHNIQUE: Multiaxial CT images of the lumbar spine were performed and reformatted in the sagittal and coronal plane without the use of contrast. COMPARISON: None. FINDINGS: No fractures. No subluxation. Paraspinal soft tissues are unremarkable. Mild degenerative disc changes throughout. Mild degenerative change posterior elements. Several renal calcifications IMPRESSION: Mild/moderate degenerative change. No acute process. Electronically signed by: James Nickerson M.D. 09/17/2016 4:07 PM Dictated Date/Time: 09/17/2016 4:06 PM
--- NOTE | 2016-09-17 16:19 | DIAGNOSTIC IMAGING REPORT ---
CT SCAN OF THE ABDOMEN AND PELVIS WITHOUT IV CONTRAST CLINICAL HISTORY: Generalized abdominal pain. COMPARISON STUDY: Abdominal CT dated 08/15/2016 and 10/13/2013. Abdominal MRI dated 08/30/11. MRCP dated 08/30/2011 TECHNIQUE: CT scan of the abdomen and pelvis is performed from the lung bases to the proximal femora. Images are reviewed in the axial, sagittal, and coronal planes. IV contrast was not administered for this examination as per the referring clinician. Note that the examination was performed in significantly suboptimal fashion without oral and IV contrast. Automated dose control exposure was utilized. The examination is also degraded by large body habitus, and by streak artifact from the body wall abutting the CT gantry. CT DOSE: 1331.14 mGy.cm FINDINGS: Lung bases: Midline sternotomy wires are identified. The heart is normal in size and without pericardial effusion. Pacemaker leads are noted. The coronary arteries are densely calcified. There is diminished attenuation of the cardiac blood pool as compared to the myocardium suggesting anemia. There is a small hiatal hernia. The lung bases are clear noting dependent atelectasis. Liver: Evaluation of the liver is degraded by streak artifact. The unenhanced liver is normal in size, contour, and attenuation. There is mild central intrahepatic biliary ductal dilatation. Gallbladder: Surgically absent noting clips in the gallbladder fossa. Spleen: Normal in size and attenuation. Pancreas: Atrophic. Adrenal glands: A 3.0 cm left adrenal nodule is unchanged from 03/23/2016 but has increased in size from 10/13/2013. The right adrenal gland is unremarkable. Kidneys: The unenhanced kidneys are atrophic and without hydronephrosis. There are bilateral nonobstructing renal calculi. No contour deforming mass lesion is seen. Abdominal vasculature: The abdominal aorta is normal in course and caliber noting moderate atherosclerotic calcification. Bowel: The small bowel and colon are normal in course and caliber. There is moderate colonic fecal retention and rectosigmoid fecal impaction. The appendix is not identified. Peritoneum: There is no intraperitoneal free air or abdominal ascites. Foci of induration within the ventral abdominal pannus are likely related to subcutis injections. Lymphadenopathy: Prominent left iliac chain lymph nodes measure up to 8 mm short axis. These are similar to previous. Pelvic viscera: The bladder is normal as visualized. The uterus is surgically absent. No adnexal lesion is seen. Small phleboliths are seen in the pelvis. Skeletal structures: The skeletal structures are osteopenic. There is mild lumbosacral spondylosis. No lytic or blastic lesions are seen. There are healed right transverse process fractures in the lumbar spine. IMPRESSION: 1. Significantly suboptimal examination without oral and IV contrast. 2. There are no acute infectious or inflammatory findings in the abdomen or pelvis. 3. Again seen is a 3.0 cm left adrenal nodule. This is similar in size to the 03/23/2016 examination but has nearly doubled in size as compared to studies dating back to 2012 and 2014. This was pathologically indeterminant on a prior MRI examination. Surgical consultation is again advised due to the increase in size. 4. Bilateral nonobstructing renal calculi. 5. Moderate constipation and rectosigmoid fecal impaction. No bowel obstruction is seen. 6. Additional changes as above. Electronically signed by: Diego Ricardo M.D. 09/17/2016 4:17 PM Dictated Date/Time: 09/17/2016 4:06 PM
--- NOTE | 2016-09-17 16:22 | Pharmacy Progress Note ---
Glycemic Control Intl Consult Date of Service Sep 17, 2016. Scope Glycemic Pharmacist consulted by Yojana Arita on 09/17/16 for glycemic control and to write orders per [facility] inpatient glycemic control protocol Objective Weight (Kilograms): 85.000 Laboratory Data (last 24hrs) Test 09/17/16 15:30 White Blood Count 11.01 K/uL Red Blood Count 4.46 M/uL Hemoglobin 13.3 g/dL Hematocrit 39.3 % Mean Corpuscular Volume 88.1 fL Mean Corpuscular Hemoglobin 29.8 pg Mean Corpuscular Hemoglobin Concent 33.8 g/dl Platelet Count 170 K/uL Mean Platelet Volume 10.8 fL Neutrophils (%) (Auto) 65.9 % Lymphocytes (%) (Auto) 26.5 % Monocytes (%) (Auto) 6.3 % Eosinophils (%) (Auto) 0.4 % Basophils (%) (Auto) 0.5 % Neutrophils # (Auto) 7.27 K/uL Lymphocytes # (Auto) 2.92 K/uL Monocytes # (Auto) 0.69 K/uL Eosinophils # (Auto) 0.04 K/uL Basophils # (Auto) 0.05 K/uL Recent Pertinent Medications Outpatient Anti-diabetic Regimen: * Lantus 80 units SQ BID * NovoLog per scale with a max of 140u/day * A1c = 9.3 % 08/16/16 Risk Factors for Insulin Resistance: * Diet: NPO Assessment & Plan ASSESSMENT: 09/17/16 * 61yo T2DM female known to pharmacy from previous admissions/glycemic consults. A1c elevated above goal range but A1c has improved over the past year (12.2% in 08/2015 --> 9.3% in 08/1016) * Pt admitted with abdominal and back pain and will likely have reduced PO intake (currently NPO). * Last admission, outpatient basal insulin doses were cut in half and patient experienced a critical low. * Will base inpatient basal doses on weight and a stress of 2 - titrate based on fasting BSGs * ADA & AACE recommend a goal blood sugar range 140-180 mg/dl for the majority of critically ill & non-critically ill patients. However, more stringent targets may be selected in individual cases. * Lower goal range used for non-elderly patient PLAN FOR INPATIENT GLYCEMIC CONTROL: * Lantus 15 units SQ BID * give 7 units if BSG is below 120mg/dL * NOVOLOG per scale ACHS or Q6hrs while NPO * Goal Range: Low 110 mg/dL - High 150 mg/dL * Correction Factor: 30 mg/dL/unit * Carb ratio of 1 unit per 10 grams CHO consumed * A1c is up to date * add to discharge instructions * Please note that the plan above was derived based on current level of insulin resistance and hospital stress. These recommendations are appropriate for inpatient admission only. Plan of care upon discharge will need to be reassessed to avoid potential outpatient hypo/hyperglycemia. Thank you.
[2016-09-17 16:36] LABS: ALT/SGPT 32 U/L (12-78); AMYLASE 29 U/L (25-115); BLOOD UREA NITROGEN 25 mg/dl (7-18); BUN/CREATININE RATIO 17.9 (10-20); CALCIUM 9.8 mg/dl (8.5-10.1); CARBON DIOXIDE 25 mmol/L (21-32); CHLORIDE 97 mmol/L (98-107); GLUCOSE 277 mg/dl (70-99); MAGNESIUM 1.8 mg/dl (1.8-2.4); POTASSIUM 4.6 mmol/L (3.5-5.1); SODIUM 135 mmol/L (136-145)
[2016-09-17 16:40] LABS: ALB/GLOB RATIO 0.6 (0.9-2); ALKALINE PHOSPHATASE 48 U/L (45-117); AST/SGOT 22 U/L (15-37)
[2016-09-17] MEDS ORDERED: SODIUM CHLORIDE 0.9% 1000ML 1,000 ML IV SCH (17:00)
[2016-09-17] MEDS ORDERED: ALBUTEROL HFA 8 GM INHALER INH PRN (17:30)
[2016-09-17 18:03] LABS: URINE APPEARANCE CLEAR (CLEAR); URINE COLOR DK YELLOW; URINE EPITHELIAL CELL AUTO >30 /lpf (0-5); URINE NITRITE NEG (NEG); URINE SPECIFIC GRAVITY 1.023 (1.000-1.030); UROBILINOGEN NEG (NEG); ZZUR CULT IF INDIC CLEAN CATCH YES
[2016-09-17 18:08] LABS: MANUAL MICROSCOPIC REQUIRED? NO; REVIEW REQ? YES
[2016-09-17 18:10] LABS: URINE BILIRUBIN NEG (NEG)
[2016-09-17] MEDS: HEPARIN SOD 5000 UNIT/0.5 ML CARP SQ SCH (18:15)
--- NOTE | 2016-09-17 18:17 | DIAGNOSTIC IMAGING REPORT ---
SINGLE VIEW CHEST CLINICAL HISTORY: Generalized weakness. Abdominal and back pain. FINDINGS: An AP, portable, upright chest radiograph is compared to study dated 08/15/2016 and correlated with chest CT dated 04/08/2015. The patient is status post midline sternotomy. A 2-lead cardiac AICD is unchanged in position and largely obscures the left mid chest. The heart is mildly enlarged and there is atherosclerotic calcification of the thoracic aorta. The pulmonary vasculature is noncongested. The lungs and pleural spaces are clear. No pneumothorax is seen. The skeletal structures are osteopenic. The bony thorax is grossly intact. Degenerative change is noted in the thoracic spine. IMPRESSION: 1. Cardiomegaly and AICD. There is no radiographic evidence of congestive failure. 2. The lungs are clear. Electronically signed by: Diego Ricardo M.D. 09/17/2016 6:15 PM Dictated Date/Time: 09/17/2016 6:14 PM
[2016-09-17] MEDS: INSULIN ASPART 100 UNITS/ML 3 ML PEN SC SCH ×2 (19:10→22:19)
[2016-09-17] MEDS ORDERED: SOD PHOSPHATE/SOD BIPHOSPHATE ENEMA 132 ML BTL PR ONE ×2 (19:45→22:30)
[2016-09-17] MEDS: MAGNESIUM CHLORIDE 64MG DELAYED REL TAB PO SCH (20:26)
[2016-09-17] MEDS: METOPROLOL TARTRATE 25 MG TAB PO SCH (20:27)
[2016-09-17] MEDS: PANTOprazole SOD 40 MG TAB PO SCH (20:27)
[2016-09-17] MEDS: POLYETHYLENE (MIRALAX) 17 GM PACK PO SCH (20:31)
[2016-09-17] MEDS: INSULIN GLARGINE SOLOSTAR 100 UNITS/ML 3 ML PEN SC SCH (20:39)
[2016-09-17] MEDS: CLOPIDOGREL BISULFATE 75 MG TAB PO SCH (20:41)
[2016-09-17] MEDS: hydrOXYzine HCL 25 MG TAB PO SCH (20:42)
[2016-09-17] MEDS: DOCUSATE SODIUM/SENNA 50/8.6MG TAB PO SCH (20:42)
[2016-09-17 23:11] VITALS: BP 115/74; PULSE 73; TEMP 36.9; O2SAT 98
[2016-09-18] MEDS: HEPARIN SOD 5000 UNIT/0.5 ML CARP SQ SCH ×3 (02:39→17:43)
[2016-09-18] MEDS: OXYCODONE/ACETAMINOPHEN 5-325 TAB PO PRN (03:40)
[2016-09-18 07:18] VITALS: BP 101/66; PULSE 72; TEMP 36.6; O2SAT 96
[2016-09-18] MEDS: MAGNESIUM CHLORIDE 64MG DELAYED REL TAB PO SCH ×3 (07:18→20:49)
[2016-09-18] MEDS: ESCITALOPRAM OXALATE 10 MG TAB PO SCH (07:18)
[2016-09-18] MEDS: PANTOprazole SOD 40 MG TAB PO SCH ×2 (07:18→20:48)
[2016-09-18] MEDS: POLYETHYLENE (MIRALAX) 17 GM PACK PO SCH ×2 (07:18→20:48)
[2016-09-18] MEDS: METOPROLOL TARTRATE 25 MG TAB PO SCH ×2 (07:19→20:47)
[2016-09-18] MEDS: LACTOBACILLUS ACIDOPHILUS (FLORANEX) TAB PO SCH (07:19)
[2016-09-18] MEDS: ROSUVASTATIN CALCIUM 10 MG TAB PO SCH (07:19)
[2016-09-18] MEDS: CEROVITE ADV FORMULA TAB PO SCH (07:19)
[2016-09-18] MEDS: ISOSORBIDE MONONITRATE 60 MG TABCR PO SCH (07:19)
[2016-09-18] MEDS: ASPIRIN 81 MG ECTAB PO SCH (07:19)
[2016-09-18] MEDS: LISINOPRIL 5 MG TAB PO SCH (07:20)
[2016-09-18 07:30] LABS: HEMATOCRIT 37.7 % (37-47); MEAN CELL VOLUME 85.5 fL (80-100); MEAN CORPUSCULAR HEMOGLOBIN 28.3 pg (25-34); MEAN CORPUSCULAR HGB CONC 33.2 g/dl (32-36); MEAN PLATELET VOLUME 10.5 fL (7.4-10.4); PLATELET COUNT 175 K/uL (130-400); RED BLOOD COUNT 4.41 M/uL (4.2-5.4); WHITE BLOOD COUNT 11.38 K/uL (4.8-10.8)
[2016-09-18 07:57] LABS: BUN/CREATININE RATIO 18.6 (10-20); CALCIUM 9.5 mg/dl (8.5-10.1); CREATININE 1.1 mg/dl (0.60-1.20); MAGNESIUM 1.8 mg/dl (1.8-2.4); POTASSIUM 4.3 mmol/L (3.5-5.1)
[2016-09-18] MEDS: INSULIN ASPART 100 UNITS/ML 3 ML PEN SC SCH ×4 (08:37→21:01)
[2016-09-18] MEDS: INSULIN GLARGINE SOLOSTAR 100 UNITS/ML 3 ML PEN SC SCH ×2 (08:38→21:00)
--- NOTE | 2016-09-18 09:26 | Pain Management Consultation ---
Pain Management Consultation Date of Consultation Sep 18, 2016. Reason for Consultation Abdominal pain and back pain History Mrs. Pereyra is a 61 year old black female that has been admitted for gait dysfunction, abdominal pain, and back pain. Patient is unable to provide any history - according to notes the patient was previously admitted to the hospital for c. diff and then discharged to [facility] due to deconditioning. After discharge from [facility], she returned home and continued to be sedentary. She reported abdominal and back pain. Patient is prescribed Percocet 5/325mg x 6 hours PRN. Patient is unable to provide any information - she will stare at me for a couple seconds and close her eyes. Case discussed with Dr. Landaverde Past Medical/Surgical History (1) Abdominal pain (2) Ambulatory dysfunction (3) Presence of combination internal cardiac defibrillator (ICD) and pacemaker (4) Aortocoronary Bypass (5) Asthma, Unspecified (6) Obstructive Sleep Apnea (Adult) (Pediatric) (7) Pure Hypercholesterolem (8) Diab Nany Wo Compl, Type Ii Or Unspec Type, Not Uncntrld (9) Coronary atherosclerosis of [place] coronary vessel (10) Hypertension Nos (11) Ventricular fibrillation (12) CKD (chronic kidney disease), stage III (13) Polymyalgia rheumatica (14) GERD (gastroesophageal reflux disease) (15) Osteoarthritis (16) Diabetic retinopathy (17) Pacemaker (18) Diabetic nephropathy (19) Depression (20) Obesity, Class II, BMI 35-39.9, with comorbidity (21) Neuropathy in diabetes (22) History of appendectomy (23) S/P triple vessel bypass (24) History of cholecystectomy (25) History of hysterectomy (26) H/O eye surgery Social / Work History Smoking Status: Unknown if ever smoked Smokeless Tobacco Use: No Alcohol Use: none Drug Use: none Marital Status: Housing Status: lives alone Occupation: disabled Allergies Coded Allergies: BEE STING (Verified Allergy, Severe, SWELLING, 05/05/16) Lidocaine (Verified Allergy, Severe, ANAPHYLAXIS, 05/05/16) Morphine (Verified Allergy, Mild, itching, 05/05/16) Tramadol (Verified Allergy, Mild, ITCHING, 05/05/16) Trazodone (Verified Allergy, Mild, ITCHING, 05/05/16) Medications Current Inpatient Medications Medications (Trade) Dose Ordered Sig/Tera Route Start Time Stop Time Status Last Admin Dose Admin Heparin Sodium (Porcine) (Heparin Sq 5000 Unit/0.5ml) 5,000 unit Q8H SQ 09/17/16 18:00 10/17/16 17:59 09/17/16 18:15 5,000 UNIT Acetaminophen (Tylenol Tab) 650 mg Q4H PRN PO 09/17/16 15:00 10/17/16 14:59 Ondansetron HCl (Zofran Inj) 4 mg Q6H PRN IV 09/17/16 15:00 10/17/16 14:59 Aspirin (Ecotrin Tab) 81 mg QAM PO 09/18/16 08:00 10/18/16 07:59 09/18/16 07:19 81 MG Bisacodyl (Dulcolax Supp) 10 mg Q7D@0900 PRN [place] 09/17/16 15:30 10/17/16 15:29 Clopidogrel Bisulfate (plAVix TAB) 75 mg HS PO 09/17/16 22:00 10/17/16 21:59 09/17/16 20:41 75 MG Escitalopram Oxalate (Lexapro Tab) 15 mg QAM PO 09/18/16 08:00 10/18/16 07:59 09/18/16 07:18 15 MG Hydroxyzine HCl (Vistaril Tab) 12.5 mg HS PO 09/17/16 22:00 10/17/16 21:59 09/17/16 20:42 12.5 MG Isosorbide Mononitrate (Imdur Ext Rel Tab) 60 mg QAM PO 09/18/16 08:00 10/18/16 07:59 09/18/16 07:19 60 MG Lactobacillus Acidophilus (Floranex Tab) 1 tab DAILY PO 09/18/16 08:00 10/18/16 07:59 09/18/16 07:19 1 TAB Lisinopril (Zestril Tab) 10 mg QAM PO 09/18/16 08:00 10/18/16 07:59 09/18/16 07:20 10 MG Lorazepam (Ativan Tab) 0.5 mg TID PRN PO 09/17/16 15:30 10/17/16 15:29 Magnesium Chloride (Slow-Mag Tab) 64 mg TID PO 09/17/16 20:00 10/17/16 19:59 09/18/16 07:18 64 MG Metoprolol Tartrate (Lopressor Tab) 25 mg BID PO 09/17/16 20:00 10/17/16 19:59 09/18/16 07:19 25 MG Multivitamins/ Minerals (Multivitamin W/ Minerals Tab) 1 tab QAM PO 09/18/16 08:00 10/18/16 07:59 09/18/16 07:19 1 TAB Nitroglycerin (Nitrostat Tab) 0.4 mg UD PRN [place] 09/17/16 15:30 10/17/16 15:29 Oxycodone/ Acetaminophen (Percocet 5-325mg Tab) 1 tab Q6H PRN PO 09/17/16 15:30 10/01/16 15:29 09/18/16 03:40 1 TAB Pantoprazole Sodium (Protonix Tab) 40 mg BID PO 09/17/16 20:00 10/17/16 19:59 09/18/16 07:18 40 MG Polyethylene (Miralax Powder Packet) 17 gm BID PO 09/17/16 20:00 10/17/16 19:59 09/18/16 07:18 17 GM Rosuvastatin Calcium (Crestor Tab) 10 mg QAM PO 09/18/16 08:00 10/18/16 07:59 09/18/16 07:19 10 MG Senna/Docusate Sodium (Senokot S Tab) 2 tab HS PO 09/17/16 22:00 10/17/16 21:59 09/17/16 20:42 2 TAB Miscellaneous Information (Order Awaiting Action) 1 ea QS N/A 09/17/16 16:00 10/17/16 15:59 Insulin Glargine (Lantus Solostar Pen) SEE PROTOCOL BID SC 09/17/16 20:00 10/17/16 19:59 09/18/16 08:38 20 UNIT Insulin Aspart (novoLOG ASPART) SLIDING SCALE If C... ACHS SC 09/17/16 16:30 10/17/16 16:29 09/18/16 08:37 8 UNITS Glucose (Glucose 40% Gel) 15-30 GRAMS 15 GRAMS... UD PRN PO 09/17/16 15:30 10/17/16 15:29 Glucose (Glucose Chew Tab) 4-8 Tablets 4 Tabl... UD PRN PO 09/17/16 15:30 10/17/16 15:29 Dextrose (Dextrose 50% 50ML Syringe) 25-50ML OF 50% DW IV FOR... UD PRN IV 09/17/16 15:30 10/17/16 15:29 Glucagon (Glucagon Inj) 1 mg UD PRN SQ 09/17/16 15:30 10/17/16 15:29 Miscellaneous Information (Consult Glycemic Management Pharmacy) 1 ea UD N/A 09/17/16 16:07 10/17/16 16:06 Albuterol (Ventolin Hfa Inhaler) 2 puffs Q4H PRN INH 09/17/16 17:30 10/17/16 15:29 Review of Systems Patient would not provide any information Physical Exam Height & Weight: Height 5 feet, 3.00 inches. Weight 85.000 (Kilograms) 187 (Pounds) Last Vital Signs Documentation Date Time Temp Pulse Resp B/P Pulse Ox O2 Delivery O2 Flow Rate FiO2 09/18/16 07:18 36.6 72 18 101/66 96 Room Air Exam: Patient would not cooperate with exam. GENERAL: Ms. Pereyra is a 61 year old black female that is obese and physically deconditioned. Patient is laying in the bed, in no acute distress. She does not respond to questions. She is intermittently falling asleep. She will stare at me for a few seconds at a time but will not speak. HEAD: Normocephalic; atraumatic. EYES: Pupils are round, equal, and reactive to light; EOM intact. CHEST: Regular chest respiration and excursion. SKIN: No lesions, erythema, or rashes noted. Laboratory / Imaging Results Laboratory Results (Last CBC): 09/18/16 06:30 Imaging: Thoracic Spine CT 09/17/16: Moderate degenerative change throughout the entire thoracic region. No acute process. Abdomen/Pelvis CT 09/17/16: 1. Significantly suboptimal examination without oral and IV contrast. 2. There are no acute infectious or inflammatory findings in the abdomen or pelvis. 3. Again seen is a 3.0 cm left adrenal nodule. This is similar in size to the 03/23/2016 examination but has nearly doubled in size as compared to studies dating back to 2011 and 2013. This was pathologically indeterminant on a prior MRI examination. Surgical consultation is again advised due to the increase in size. 4. Bilateral nonobstructing renal calculi. 5. Moderate constipation and rectosigmoid fecal impaction. No bowel obstruction is seen. Lumbar CT 09/17/16: Mild/moderate degenerative change. No acute process. [place] Drug Monitoring Program Search Results: patient reviewed within database, no issues identified Assessment 1. Minimal responsiveness 2. Abdominal pain 3. Back pain 4. Chronic Kidney Disease 5. CAD 6. History of triple artery bypass Recommendations 1. With multiple attempts, the patient will not respond to questions. Patient has only had #2 Percocet tablets since admission so opioids are likely not the cause. 2. Possibly consult psychiatry? 3. Imaging shows constipation, thoracic and lumbar imaging is benign. Continue bowel regimen. Dragon Voice Recognition This chart was completed in part utilizing [employer] Voice Recognition Software. Random word insertions, pronoun errors, and incomplete sentences are an occasional consequence of this system due to software limitations and ambient noise. Any questions or concerns about the content, text or information contained within the body of this dictation should be directly addressed to the provider for clarification. Additional Copies To Reginaldo Ramirez D.O.
[2016-09-18] MEDS ORDERED: NURSING VERBAL MED ORDER ONE (14:00)
[2016-09-18] MEDS ORDERED: SOD PHOSPHATE/SOD BIPHOSPHATE ENEMA 132 ML BTL PR PRN (14:30)
[2016-09-18 14:47] VITALS: BP 96/62; PULSE 67; TEMP 37; O2SAT 95
--- NOTE | 2016-09-18 15:12 | Pharmacy Progress Note ---
Glycemic Control: Progress Nt Date of Service Sep 18, 2016. Scope Glycemic Pharmacist consulted by Yojana Arita on 09/17/16 for glycemic control and to write orders per [facility] inpatient glycemic control protocol. Objective Accuchecks BSG (last 24hrs): Test 09/17/16 15:30 09/17/16 17:55 09/17/16 19:46 09/17/16 22:05 Random Glucose 277 mg/dl (70-99) Bedside Glucose 236 mg/dl (70-90) 304 mg/dl (70-90) 236 mg/dl (70-90) Test 09/18/16 06:30 09/18/16 07:29 09/18/16 11:38 Random Glucose 207 mg/dl (70-99) Bedside Glucose 212 mg/dl (70-90) 240 mg/dl (70-90) Laboratory Data (last 24hrs) Test 09/17/16 15:30 09/18/16 06:30 Anion Gap 13.0 mmol/L 10.0 mmol/L BUN/Creatinine Ratio 17.9 18.6 Blood Urea Nitrogen 25 mg/dl 20 mg/dl Creatinine 1.40 mg/dl 1.10 mg/dl Potassium Level 4.6 mmol/L 4.3 mmol/L Sodium Level 135 mmol/L 138 mmol/L White Blood Count 11.01 K/uL 11.38 K/uL Red Blood Count 4.46 M/uL Hemoglobin 13.3 g/dL Hematocrit 39.3 % Mean Corpuscular Volume 88.1 fL Mean Corpuscular Hemoglobin 29.8 pg Mean Corpuscular Hemoglobin Concent 33.8 g/dl Platelet Count 170 K/uL Mean Platelet Volume 10.8 fL Neutrophils (%) (Auto) 65.9 % Lymphocytes (%) (Auto) 26.5 % Monocytes (%) (Auto) 6.3 % Eosinophils (%) (Auto) 0.4 % Basophils (%) (Auto) 0.5 % Neutrophils # (Auto) 7.27 K/uL Lymphocytes # (Auto) 2.92 K/uL Monocytes # (Auto) 0.69 K/uL Eosinophils # (Auto) 0.04 K/uL Basophils # (Auto) 0.05 K/uL Recent Pertinent Medications Outpatient Anti-diabetic Regimen: * Lantus 80 units SQ BID * NovoLog per scale with a max of 140u/day * A1c = 9.3 % 08/16/16 Current Inpatient Regimen: * Lantus 15-20 units SQ BID * based on BSGs * NovoLog SC AC and HS * correction factor: 30mg/dL/unit * carb ratio: 1 unit per 10 g of CHO consumed * goal range: 110-150mg/dL Risk Factors for Insulin Resistance: * Diet: NPO --> T1DM Assessment & Plan ASSESSMENT: 09/17/16 * 61yo T2DM female known to pharmacy from previous admissions/glycemic consults. A1c elevated above goal range but A1c has improved over the past year (12.2% in 08/2015 --> 9.3% in 08/1016) * Pt admitted with abdominal and back pain and will likely have reduced PO intake (currently NPO). * Last admission, outpatient basal insulin doses were cut in half and patient experienced a critical low. * Will base inpatient basal doses on weight and a stress of 2 - titrate based on fasting BSGs * ADA & AACE recommend a goal blood sugar range 140-180 mg/dl for the majority of critically ill & non-critically ill patients. However, more stringent targets may be selected in individual cases. * Lower goal range used for non-elderly patient 09/18/16 * BSGs above 300mg/dL last evening but dropped nicely with a fraction of the Lantus dose compared to home regimen. * Fasting BSG today is above goal, will slowly titrate basal insulin upwards with caution as Ms Pereyra does have a history of hypoglycemia in house * Unsure of NovoLog parameter efficacy at this time * continue same * add additional Accu-check at 02:00 in case of overnight hyperglycemia PLAN FOR INPATIENT GLYCEMIC CONTROL: * Lantus SQ BID * Give 10 units if BSG is below 120mg/dL * Give 20 units if BSG is 120-180mg/dL * Give 25 units if BSG is above 180mg/dL * NOVOLOG per scale ACHS or Q6hrs while NPO * Additional Accu-check at 02:00 * Goal Range: Low 110 mg/dL - High 150 mg/dL * Correction Factor: 30 mg/dL/unit * Carb ratio of 1 unit per 10 grams CHO consumed * A1c is up to date * add to discharge instructions * Please note that the plan above was derived based on current level of insulin resistance and hospital stress. These recommendations are appropriate for inpatient admission only. Plan of care upon discharge will need to be reassessed to avoid potential outpatient hypo/hyperglycemia. Thank you.
[2016-09-18 16:34] VITALS: Ht 160 cm; Wt 85.0 kg
--- NOTE | 2016-09-18 17:13 | Progress Note ---
Subjective Date of Service: Sep 18, 2016. Subjective Pt evaluation today including: conversation w/ patient, physical exam, lab review, review of studies, review of inpatient medication list Saw/examined the patient in room 453 Reserved and Flat Affect +weakness +generalized abdominal pain, persistent Problem List Medical Problems: (1) Adrenal nodule Status: Acute (2) Altered mental status Status: Acute (3) Ambulatory dysfunction Status: Acute (4) Blood in stool Status: Acute (5) Cardiomegaly Status: Acute (6) Contusion of multiple sites Status: Acute (7) Dehydration Status: Acute (8) Dehydration Status: Acute (9) Fall Status: Acute (10) Hyperglycemia Status: Acute (11) Influenza-like symptoms Status: Acute Social History Problems: (1) Diabetes mellitus Status: Chronic Review of Systems Constitutional: + weakness, No chills, No fever Respiratory: No cough, No dyspnea at rest, No dyspnea on exertion, No hemoptysis, No shortness of breath, No sputum, No wheezing Cardiac: No chest pain, No edema, No palpitations Abdomen: + nausea, + pain, No GI bleeding, No constipation, No diarrhea, No vomiting Female : No dysuria, No urinary frequency Heme: No abnormal bleeding/bruising Medications Current Inpatient Medications Medications (Trade) Dose Ordered Sig/Tera Route Start Time Stop Time Status Last Admin Dose Admin Heparin Sodium (Porcine) (Heparin Sq 5000 Unit/0.5ml) 5,000 unit Q8H SQ 09/17/16 18:00 10/17/16 17:59 09/18/16 09:53 5,000 UNIT Acetaminophen (Tylenol Tab) 650 mg Q4H PRN PO 09/17/16 15:00 10/17/16 14:59 Ondansetron HCl (Zofran Inj) 4 mg Q6H PRN IV 09/17/16 15:00 10/17/16 14:59 Aspirin (Ecotrin Tab) 81 mg QAM PO 09/18/16 08:00 10/18/16 07:59 09/18/16 07:19 81 MG Bisacodyl (Dulcolax Supp) 10 mg Q7D@0900 PRN [place] 09/17/16 15:30 10/17/16 15:29 Clopidogrel Bisulfate (plAVix TAB) 75 mg HS PO 09/17/16 22:00 10/17/16 21:59 09/17/16 20:41 75 MG Escitalopram Oxalate (Lexapro Tab) 15 mg QAM PO 09/18/16 08:00 10/18/16 07:59 09/18/16 07:18 15 MG Hydroxyzine HCl (Vistaril Tab) 12.5 mg HS PO 09/17/16 22:00 10/17/16 21:59 09/17/16 20:42 12.5 MG Isosorbide Mononitrate (Imdur Ext Rel Tab) 60 mg QAM PO 09/18/16 08:00 10/18/16 07:59 09/18/16 07:19 60 MG Lactobacillus Acidophilus (Floranex Tab) 1 tab DAILY PO 09/18/16 08:00 10/18/16 07:59 09/18/16 07:19 1 TAB Lisinopril (Zestril Tab) 10 mg QAM PO 09/18/16 08:00 10/18/16 07:59 09/18/16 07:20 10 MG Lorazepam (Ativan Tab) 0.5 mg TID PRN PO 09/17/16 15:30 10/17/16 15:29 Magnesium Chloride (Slow-Mag Tab) 64 mg TID PO 09/17/16 20:00 10/17/16 19:59 09/18/16 13:45 64 MG Metoprolol Tartrate (Lopressor Tab) 25 mg BID PO 09/17/16 20:00 10/17/16 19:59 09/18/16 07:19 25 MG Multivitamins/ Minerals (Multivitamin W/ Minerals Tab) 1 tab QAM PO 09/18/16 08:00 10/18/16 07:59 09/18/16 07:19 1 TAB Nitroglycerin (Nitrostat Tab) 0.4 mg UD PRN [place] 09/17/16 15:30 10/17/16 15:29 Oxycodone/ Acetaminophen (Percocet 5-325mg Tab) 1 tab Q6H PRN PO 09/17/16 15:30 10/01/16 15:29 09/18/16 03:40 1 TAB Pantoprazole Sodium (Protonix Tab) 40 mg BID PO 09/17/16 20:00 10/17/16 19:59 09/18/16 07:18 40 MG Polyethylene (Miralax Powder Packet) 17 gm BID PO 09/17/16 20:00 10/17/16 19:59 09/18/16 07:18 17 GM Rosuvastatin Calcium (Crestor Tab) 10 mg QAM PO 09/18/16 08:00 10/18/16 07:59 09/18/16 07:19 10 MG Senna/Docusate Sodium (Senokot S Tab) 2 tab HS PO 09/17/16 22:00 10/17/16 21:59 09/17/16 20:42 2 TAB Miscellaneous Information (Order Awaiting Action) 1 ea QS N/A 09/17/16 16:00 10/17/16 15:59 Insulin Glargine (Lantus Solostar Pen) SEE PROTOCOL BID SC 09/17/16 20:00 10/17/16 19:59 09/18/16 08:38 20 UNIT Insulin Aspart (novoLOG ASPART) SLIDING SCALE If C... ACHS SC 09/17/16 16:30 10/17/16 16:29 09/18/16 12:27 5 UNITS Glucose (Glucose 40% Gel) 15-30 GRAMS 15 GRAMS... UD PRN PO 09/17/16 15:30 10/17/16 15:29 Glucose (Glucose Chew Tab) 4-8 Tablets 4 Tabl... UD PRN PO 09/17/16 15:30 10/17/16 15:29 Dextrose (Dextrose 50% 50ML Syringe) 25-50ML OF 50% DW IV FOR... UD PRN IV 09/17/16 15:30 10/17/16 15:29 Glucagon (Glucagon Inj) 1 mg UD PRN SQ 09/17/16 15:30 10/17/16 15:29 Miscellaneous Information (Consult Glycemic Management Pharmacy) 1 ea UD N/A 09/17/16 16:07 10/17/16 16:06 Albuterol (Ventolin Hfa Inhaler) 2 puffs Q4H PRN INH 09/17/16 17:30 10/17/16 15:29 Sodium Biphosphate/ Sodium Phosphate (Fleet Enema) 132 ml DAILY PRN CA 09/18/16 14:30 10/18/16 14:29 09/18/16 15:46 132 ML Insulin Aspart (novoLOG ASPART) SLIDING SCALE If C... TODAY@0200 [place] 09/19/16 02:00 09/19/16 02:01 Objective Vital Signs Date Time Temp Pulse Resp B/P Pulse Ox O2 Delivery O2 Flow Rate FiO2 09/18/16 14:47 37.0 67 18 96/62 95 Room Air 09/18/16 08:45 Room Air 09/18/16 07:18 36.6 72 18 101/66 96 Room Air 09/18/16 00:00 Room Air 09/17/16 23:11 36.9 73 18 115/74 98 Room Air 09/17/16 20:00 Room Air Physical Exam General Appearance: no apparent distress, + pertinent finding (+lethargic) ENT: + pertinent finding (+hirsutism) Respiratory/Chest: chest non-tender, lungs clear, normal breath sounds, no respiratory distress, no accessory muscle use Cardiovascular: regular rate, rhythm, no edema, no murmur Abdomen: normal bowel sounds, soft, + tenderness (epigastric pain) Extremities: normal inspection, no pedal edema Neurologic/Psychiatric: alert, + depressed affect (flat affect, reserved) Laboratory Results Last 24 Hours Test 09/17/16 17:46 09/17/16 17:55 09/17/16 19:46 09/17/16 22:05 Urine Color DK YELLOW Urine Appearance CLEAR Urine pH 5.0 Urine Specific [place] 1.023 Urine Protein NEG Urine Glucose (UA) 3+ Urine Ketones 1+ Urine Occult Blood 2+ Urine Nitrite NEG Urine Bilirubin NEG Urine Urobilinogen NEG Urine Leukocyte Esterase NEG Urine WBC (Auto) 0 /hpf Urine RBC (Auto) 5-10 /hpf Urine Hyaline Casts (Auto) 1-5 /lpf Urine Epithelial Cells (Auto) >30 /lpf Urine Bacteria (Auto) NEG Urine Crystals URIC ACID Urine Yeast (Auto) Bedside Glucose 236 mg/dl 304 mg/dl 236 mg/dl Test 09/18/16 06:30 09/18/16 07:29 09/18/16 11:38 White Blood Count 11.38 K/uL Red Blood Count 4.41 M/uL Hemoglobin 12.5 g/dL Hematocrit 37.7 % Mean Corpuscular Volume 85.5 fL Mean Corpuscular Hemoglobin 28.3 pg Mean Corpuscular Hemoglobin Concent 33.2 g/dl RDW Standard Deviation 39.4 fL RDW Coefficient of Variation 12.6 % Platelet Count 175 K/uL Mean Platelet Volume 10.5 fL Sodium Level 138 mmol/L Potassium Level 4.3 mmol/L Chloride Level 100 mmol/L Carbon Dioxide Level 28 mmol/L Anion Gap 10.0 mmol/L Blood Urea Nitrogen 20 mg/dl Creatinine 1.10 mg/dl Est Creatinine Clear Calc Drug Dose 54.1 ml/min Estimated GFR () 61.9 Estimated GFR (Non- 53.4 BUN/Creatinine Ratio 18.6 Random Glucose 207 mg/dl Calcium Level 9.5 mg/dl Magnesium Level 1.8 mg/dl Bedside Glucose 212 mg/dl 240 mg/dl Assessment and Plan This is a 61 year old female with PMH of uncontrolled diabetes mellitus, requiring insulin with multiple complications including neuropathy and nephropathy, chronic kidney disease stage III, hx. of CAD s/p CABG and PCI/stent , hx. of ventricular fibrillation s/p implantable cardioverter/defibrillator, HTN, HLD, diastolic CHF, severe SACHA not on CPAP Generalized Abdominal Pain was admitted last month to [facility] for the flu at that time, found to have C. diff, which was treated patient felt better at that time and was sent to Rehab niece is with her in the room and explains that they want to take her home after w/up is complete Dr. Ramirez, patient's primary - would like patient to have EGD - GI consulted bowel regimen and fleet enema PRN for constipation Flat Affect in the setting of Depression patient states that depression seems to be under control She is reserved and difficult to get to answer questions continue Lexapro for now will consult psych for any other recommendations Acute Kidney Injury superimposed on CKD stage 3 creat from 1.4 down to 1.1 seems to be back to baseline, encouraged PO intake Adrenal Incidentaloma CT shows an adrenal cyst would recommend outpatient lab work to check if it is functioning if we need to remove this - will have to f/u at [place] or tertiary center, as per general surgery here Insulin Dependent DM2, uncontrolled Ha1c in August 2016 > 9.0% appreciate glycemic control consult novolog sliding scale Lantus is also on a sliding scale to prevent hypoglycemia CAD s/p CABG and PCI continue current cardiac medications - aspirin, Plavix, b-clyde, TAMARA-I, statin , Imdur Hx. of V. Fib s/p ICD DVT ppx subq heparin FULL CODE
[2016-09-18 20:45] VITALS: BP 101/64; PULSE 70; O2SAT 97
[2016-09-18] MEDS: DOCUSATE SODIUM/SENNA 50/8.6MG TAB PO SCH (20:51)
[2016-09-18] MEDS: CLOPIDOGREL BISULFATE 75 MG TAB PO SCH (20:51)
[2016-09-18] MEDS: hydrOXYzine HCL 25 MG TAB PO SCH (20:52)
[2016-09-19 00:11] VITALS: BP 106/68; PULSE 65; TEMP 36.9; O2SAT 97
[2016-09-19] MEDS ORDERED: INSULIN ASPART 100 UNITS/ML 3 ML PEN SC SCH (02:00)
[2016-09-19] MEDS: HEPARIN SOD 5000 UNIT/0.5 ML CARP SQ SCH ×3 (02:09→17:25)
[2016-09-19 06:53] LABS: HEMATOCRIT 36.5 % (37-47); MEAN CELL VOLUME 87.5 fL (80-100); MEAN CORPUSCULAR HGB CONC 33.2 g/dl (32-36); MEAN PLATELET VOLUME 10.7 fL (7.4-10.4); PLATELET COUNT 152 K/uL (130-400); RED BLOOD COUNT 4.17 M/uL (4.2-5.4); WHITE BLOOD COUNT 9.41 K/uL (4.8-10.8)
[2016-09-19 07:00] VITALS: BP 135/73; PULSE 65; TEMP 36.6; O2SAT 98
[2016-09-19 07:25] LABS: CREATININE 1.1 mg/dl (0.60-1.20)
[2016-09-19 07:26] LABS: BUN/CREATININE RATIO 15.7 (10-20); CALCIUM 9.6 mg/dl (8.5-10.1); POTASSIUM 3.7 mmol/L (3.5-5.1)
[2016-09-19] MEDS: POLYETHYLENE (MIRALAX) 17 GM PACK PO SCH ×2 (08:00→20:29)
[2016-09-19] MEDS: PANTOprazole SOD 40 MG TAB PO SCH ×2 (08:45→20:29)
[2016-09-19] MEDS: METOPROLOL TARTRATE 25 MG TAB PO SCH ×2 (08:46→20:33)
[2016-09-19] MEDS: MAGNESIUM CHLORIDE 64MG DELAYED REL TAB PO SCH ×3 (08:46→20:30)
[2016-09-19] MEDS: CEROVITE ADV FORMULA TAB PO SCH (08:46)
[2016-09-19] MEDS: ROSUVASTATIN CALCIUM 10 MG TAB PO SCH (08:46)
[2016-09-19] MEDS: ASPIRIN 81 MG ECTAB PO SCH (08:46)
[2016-09-19] MEDS: LISINOPRIL 5 MG TAB PO SCH (08:46)
[2016-09-19] MEDS: LACTOBACILLUS ACIDOPHILUS (FLORANEX) TAB PO SCH (08:46)
[2016-09-19] MEDS: ISOSORBIDE MONONITRATE 60 MG TABCR PO SCH (08:47)
[2016-09-19] MEDS: ESCITALOPRAM OXALATE 10 MG TAB PO SCH (08:47)
[2016-09-19] MEDS: INSULIN ASPART 100 UNITS/ML 3 ML PEN SC SCH ×4 (08:58→21:55)
[2016-09-19] MEDS: INSULIN GLARGINE SOLOSTAR 100 UNITS/ML 3 ML PEN SC SCH ×2 (08:59→20:37)
[2016-09-19] MEDS: ACETAMINOPHEN 325 MG TAB PO PRN ×2 (09:50→19:18)
--- NOTE | 2016-09-19 10:48 | Gastrointestinal Consultation ---
Gastrointestinal Consultation Date of Consultation: Sep 19, 2016 Attending Physician: Dr. Baptiste Consulting Physician: Dr. Turner Reason for Consultation: Generalized abdominal pain, possible EGD History of Present Illness Patient is a 61 year old female with multiple comorbidities including uncontrolled DM, CAD s/p CABG, HTN, HLD, diastolic CHF, hx Vtach s/p ICD, GERD, CKD stage 3 and recent C diff infection hospitalized at this facility from -08/17/16 and discharged to rehab, now a direct admission from PCP's office for back pain, deconditioning and generalized abdominal pain for which PCP is suggesting EGD and GI is now consulted. Entire history taken from medical record as pt does not respond to most questions. She awakens when called by name but quickly closes her eyes again. Pt laying in hospital bed, resting comfortably in NAD. Appears to have tolerated her clear liquid breakfast tray. Only hx I was able to obtain from patient was when asked where she had abdominal pain - she slowly moved her arm and pointed to her periumbilical region. Pt only stated "yes" to continued abdominal pain and then did not speak further and closed her eyes. Recent c diff s/p flagyl - nursing staff reports multiple loose stool overnight - stool cultures pending ED work up: noncontrast CT A/P revealed small hiatal hernia, moderate fecal retention and rectosigmoid impaction, 3cm left adrenal nodule (being followed) WBC 11, hgb stable at 12, BMP was normal. Chart indicates she was on narcotics PRN Tox screen 08/16/2016 positive for narcotics and marijuana home meds include PPI BID EGD 06/2011 was normal colonoscopy 2016 showed melanosis and adenomatous polyp Gastric emptying study in 2013 was normal Past Medical/Surgical History Medical Problems: (1) Adrenal nodule Status: Acute (2) Altered mental status Status: Acute (3) Ambulatory dysfunction Status: Acute (4) Blood in stool Status: Acute (5) Cardiomegaly Status: Acute (6) Contusion of multiple sites Status: Acute (7) Dehydration Status: Acute (8) Dehydration Status: Acute (9) Fall Status: Acute (10) Hyperglycemia Status: Acute (11) Influenza-like symptoms Status: Acute Social History Problems: (1) Diabetes mellitus Status: Chronic Past Medical History: DM2- uncontrolled Asthma CKD - stage 3 CAD s/p CABG depression diabetic retinopathy obesity SACHA ICD/pacemaker placement polymyalgia rheumatica chronic back pain Past Surgical History: ICD/Pacemaker placement eye surgery appendectomy cholecystectomy hysterectomy CABG Family History Diabetes mellitus FATHER BROTHER FH: cancer FH: lung disease FHx: heart disease MOTHER Hypertension MOTHER Kidney disease Kidney stones Social History Smoking Status: Never Smoker Alcohol Use: occasionally Drug Use: none Marital Status: Housing Status: lives alone Occupation Status: disabled Allergies Coded Allergies: BEE STING (Verified Allergy, Severe, SWELLING, 05/05/16) Lidocaine (Verified Allergy, Severe, ANAPHYLAXIS, 05/05/16) Morphine (Verified Allergy, Mild, itching, 05/05/16) Tramadol (Verified Allergy, Mild, ITCHING, 05/05/16) Trazodone (Verified Allergy, Mild, ITCHING, 05/05/16) Current Medications Home Meds and Scripts Medications Dose Route/Sig Max Daily Dose Days Date Category Dose Instructions Proair Respiclick (Albuterol Sulfate) 108 Mcg/Act Aer 2 Puffs INH Q4H PRN 09/17/16 Reported Lantus Solostar (Insulin Glargine) 100 Unit/Ml Inj 80 Units SC AMPM 09/17/16 Reported Dulcolax (Bisacodyl) 10 Mg Sup 1 Supp AR WK PRN 09/17/16 Reported Oxycodone/Acetaminophen 5MG/325MG (Oxycodone/Acetaminophen) 1 Tab Tab 1 Tablet PO Q6H PRN 09/17/16 Reported Prinivil (Lisinopril) 5 Mg Tab 10 Mg PO QAM 30 08/17/16 Rx Novolog Flexpen (Insulin Aspart) 100 Units/Ml Inj 1 Dose SC SLIDING SCALE 08/15/16 Reported MAX OF 140 UNITS DAILY Durezol (Difluprednate) 0.05 % Emu 1 Dose DIRECTED 10/20/15 Reported Floranex (Lactobacillus) 1 Tab Tab 1 Tab PO DAILY 10/20/15 Reported Mucinex Ext Rel (Guaifenesin) 600 Mg Tab 600 Mg PO Q12 PRN 08/18/15 Reported Ketoconazole (Ketoconazole (Topical)) 2 % Sha 1 Appln TOP DAILY 08/18/15 Reported Atarax (Hydroxyzine Hcl) 25 Mg Tab 12.5 Mg PO HS 08/18/15 Reported May increase to 25 mg as tolerated Miralax (Polyethylene Glycol 3350) 1 Pow Pow 17 Mg PO BID 08/18/15 Reported Imdur Ext Rel (Isosorbide Mononitrate) 60 Mg Tab 60 Mg PO QAM 02/08/15 Reported Lexapro (Escitalopram Oxalate) 10 Mg Tab 15 Mg PO QAM 02/08/15 Reported Aspirin Ec (Aspirin) 81 Mg Tab 81 Mg PO QAM 02/08/15 Reported Crestor (Rosuvastatin Calcium) 10 Mg Tab 10 Mg PO QAM 01/31/15 Reported Senna Plus (Sennosides-Docusate Sodium) 1 Tab Tab 2 Tab PO HS 09/22/14 Reported Ativan (Lorazepam) 0.5 Mg Tab 0.5 Mg PO TID PRN 06/02/13 Reported Plavix (Clopidogrel Bisulfate) 75 Mg Tab 75 Mg PO HS 03/25/13 Reported Caltrate 600+D (Calcium Carbonate-Cholecalcife) 1 Tab Tab 1 Tablet PO BID 03/25/13 Reported Mvi With Minerals (Multivitamins/Minerals) Tab 1 Tablet PO QAM 10/31/12 Reported Slow-Mag Tab (Magnesium Chloride) 64 Mg Tabcr 64 Mg PO TID 05/10/11 Reported Lopressor (Metoprolol Tartrate) 25 Mg Tab 25 Mg PO BID 05/10/11 Reported Protonix (Pantoprazole Sodium) 40 Mg Tab 40 Mg PO BID 05/10/11 Reported Nitrostat (Nitroglycerin) 0.4 Mg Tab 0.4 Mg UT UD PRN 08/18/09 Reported Review of Systems Constitutional: + see HPI (ROS unobtainable due to pt's flat affect/sedated state) Abdomen: + see HPI Physical Exam Date Time Temp Pulse Resp B/P Pulse Ox O2 Delivery O2 Flow Rate FiO2 09/19/16 07:00 36.6 65 18 135/73 98 Room Air 09/19/16 00:11 36.9 65 18 106/68 97 Room Air 09/19/16 00:00 Room Air 09/18/16 20:45 70 101/64 97 Room Air 09/18/16 20:00 Room Air 09/18/16 16:45 Room Air 09/18/16 14:47 37.0 67 18 96/62 95 Room Air General Appearance: no apparent distress, + pertinent finding (61yo resting comfortably, NAD, opens eyes to voice then quickly closes eyes again) Eyes: normal inspection ENT: hearing grossly normal Respiratory/Chest: lungs clear (lungs clear across anterior chest), normal breath sounds, no respiratory distress Cardiovascular: regular rate, rhythm Abdomen: normal bowel sounds, non tender (no significant tenderness appreciated , no epigastric tenderness, no rebound or guarding), soft Extremities: no pedal edema Neurologic/Psych: + pertinent finding (flat affect, appears sedated) Skin: warm/dry Laboratory Results Last 24 Hours Test 09/18/16 11:38 09/18/16 16:44 09/18/16 19:34 09/19/16 02:06 Bedside Glucose 240 mg/dl 195 mg/dl 181 mg/dl 130 mg/dl Test 09/19/16 06:37 09/19/16 07:42 White Blood Count 9.41 K/uL Red Blood Count 4.17 M/uL Hemoglobin 12.1 g/dL Hematocrit 36.5 % Mean Corpuscular Volume 87.5 fL Mean Corpuscular Hemoglobin 29.0 pg Mean Corpuscular Hemoglobin Concent 33.2 g/dl RDW Standard Deviation 41.7 fL RDW Coefficient of Variation 12.9 % Platelet Count 152 K/uL Mean Platelet Volume 10.7 fL Sodium Level 143 mmol/L Potassium Level 3.7 mmol/L Chloride Level 104 mmol/L Carbon Dioxide Level 29 mmol/L Anion Gap 10.0 mmol/L Blood Urea Nitrogen 17 mg/dl Creatinine 1.10 mg/dl Est Creatinine Clear Calc Drug Dose 54.1 ml/min Estimated GFR () 61.9 Estimated GFR (Non- 53.4 BUN/Creatinine Ratio 15.7 Random Glucose 129 mg/dl Calcium Level 9.6 mg/dl Magnesium Level 2.0 mg/dl Bedside Glucose 125 mg/dl Impression Patient is a 61 year old female with multiple comorbidities and recent c diff infection admitted with ambulatory dysfunction, back pain and abdominal pain Plan I am meeting this patient for the first time today, no family present at bedside , I am uncertain of her baseline mental status Abdominal pain in setting of recent c diff infection - CT suggests constipation/ rectosigmoid impaction - was given fleets, nursing indicates multiple loose stool overnight, repeat stool studies pending; Abdominal pain could be secondary to recent colitis and now constipation - would continue bowel regimen (miralax BID) minimize narcotics as they will contribute to pain and constipation PUD would be unlikely given she's on BID PPI. She had a normal EGD in 2010. Given her multiple comorbidities and current state, she would be high risk for sedation and EGD would likely be low yield. DDx includes diabetic or narcotic induced gastroparesis despite normal gastric emptying study in 2013 - recommend low residue diet, smaller, more frequent meals continue PPI GI will follow. No plans for endoscopic intervention at this time. Addendum: Pt's oldest niece and brother at bedside during PM rounds with Dr. Turner, pt slightly more alert but still sedated according to nistefano. This does not appear to be patient's baseline. Discussed overall condition, pt has complained of constipation, niece observes her straining. Pt still c/o diffuse lower abdominal pain. Family agrees to defer EGD due to risk of sedation. Recommend: increased miralax to TID, add tap water enema x 2 doses, dulcolax suppository in AM - orders written. Will continue to follow. Attg addendum: I interviewed adn examined pt, reviewed chart and labs. Pt with diffuse abd pain. On exam, she is drowsy. She is mildly tender diffusely; abd is non distended. Ct images reviewed and show rrectal impaction. her symptoms seem related to her constipation. Laxative regimen ordered.
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
--- NOTE | 2016-09-19 11:58 | Progress Note ---
Subjective Date of Service: Sep 19, 2016. Subjective Pt evaluation today including: conversation w/ patient, physical exam, lab review, review of studies, review of inpatient medication list Saw/examined the patient in room 453 reserved and flat affect c/o abdominal tenderness, generalized tenderness, worse in the lower quadrants +diarrhea, no fevers/chills Problem List Medical Problems: (1) Adrenal nodule Status: Acute (2) Altered mental status Status: Acute (3) Ambulatory dysfunction Status: Acute (4) Blood in stool Status: Acute (5) Cardiomegaly Status: Acute (6) Contusion of multiple sites Status: Acute (7) Dehydration Status: Acute (8) Dehydration Status: Acute (9) Fall Status: Acute (10) Hyperglycemia Status: Acute (11) Influenza-like symptoms Status: Acute Social History Problems: (1) Diabetes mellitus Status: Chronic Review of Systems Constitutional: No chills, No fever Respiratory: No shortness of breath Cardiac: No chest pain Abdomen: + diarrhea, + pain, No GI bleeding, No constipation, No nausea, No vomiting Medications Current Inpatient Medications Medications (Trade) Dose Ordered Sig/Tera Route Start Time Stop Time Status Last Admin Dose Admin Heparin Sodium (Porcine) (Heparin Sq 5000 Unit/0.5ml) 5,000 unit Q8H SQ 09/17/16 18:00 10/17/16 17:59 09/19/16 09:54 5,000 UNIT Acetaminophen (Tylenol Tab) 650 mg Q4H PRN PO 09/17/16 15:00 10/17/16 14:59 09/19/16 09:50 650 MG Ondansetron HCl (Zofran Inj) 4 mg Q6H PRN IV 09/17/16 15:00 10/17/16 14:59 Aspirin (Ecotrin Tab) 81 mg QAM PO 09/18/16 08:00 10/18/16 07:59 09/19/16 08:46 81 MG Bisacodyl (Dulcolax Supp) 10 mg Q7D@0900 PRN ND 09/17/16 15:30 10/17/16 15:29 Clopidogrel Bisulfate (plAVix TAB) 75 mg HS PO 09/17/16 22:00 10/17/16 21:59 09/18/16 20:51 75 MG Escitalopram Oxalate (Lexapro Tab) 15 mg QAM PO 09/18/16 08:00 10/18/16 07:59 09/19/16 08:47 15 MG Hydroxyzine HCl (Vistaril Tab) 12.5 mg HS PO 09/17/16 22:00 10/17/16 21:59 09/18/16 20:52 12.5 MG Isosorbide Mononitrate (Imdur Ext Rel Tab) 60 mg QAM PO 09/18/16 08:00 10/18/16 07:59 09/19/16 08:47 60 MG Lactobacillus Acidophilus (Floranex Tab) 1 tab DAILY PO 09/18/16 08:00 10/18/16 07:59 09/19/16 08:46 1 TAB Lisinopril (Zestril Tab) 10 mg QAM PO 09/18/16 08:00 10/18/16 07:59 09/19/16 08:46 10 MG Lorazepam (Ativan Tab) 0.5 mg TID PRN PO 09/17/16 15:30 10/17/16 15:29 Magnesium Chloride (Slow-Mag Tab) 64 mg TID PO 09/17/16 20:00 10/17/16 19:59 09/19/16 08:46 64 MG Metoprolol Tartrate (Lopressor Tab) 25 mg BID PO 09/17/16 20:00 10/17/16 19:59 09/19/16 08:46 25 MG Multivitamins/ Minerals (Multivitamin W/ Minerals Tab) 1 tab QAM PO 09/18/16 08:00 10/18/16 07:59 09/19/16 08:46 1 TAB Nitroglycerin (Nitrostat Tab) 0.4 mg UD PRN UT 09/17/16 15:30 10/17/16 15:29 Oxycodone/ Acetaminophen (Percocet 5-325mg Tab) 1 tab Q6H PRN PO 09/17/16 15:30 10/01/16 15:29 09/18/16 03:40 1 TAB Pantoprazole Sodium (Protonix Tab) 40 mg BID PO 09/17/16 20:00 10/17/16 19:59 09/19/16 08:45 40 MG Polyethylene (Miralax Powder Packet) 17 gm BID PO 09/17/16 20:00 10/17/16 19:59 09/18/16 20:48 17 GM Rosuvastatin Calcium (Crestor Tab) 10 mg QAM PO 09/18/16 08:00 10/18/16 07:59 09/19/16 08:46 10 MG Senna/Docusate Sodium (Senokot S Tab) 2 tab HS PO 09/17/16 22:00 10/17/16 21:59 09/18/16 20:51 2 TAB Miscellaneous Information (Order Awaiting Action) 1 ea QS N/A 09/17/16 16:00 10/17/16 15:59 Insulin Glargine (Lantus Solostar Pen) SEE PROTOCOL BID SC 09/17/16 20:00 10/17/16 19:59 09/19/16 08:59 20 UNIT Insulin Aspart (novoLOG ASPART) SLIDING SCALE If C... ACHS SC 09/17/16 16:30 10/17/16 16:29 09/19/16 08:58 1 UNITS Glucose (Glucose 40% Gel) 15-30 GRAMS 15 GRAMS... UD PRN PO 09/17/16 15:30 10/17/16 15:29 Glucose (Glucose Chew Tab) 4-8 Tablets 4 Tabl... UD PRN PO 09/17/16 15:30 10/17/16 15:29 Dextrose (Dextrose 50% 50ML Syringe) 25-50ML OF 50% DW IV FOR... UD PRN IV 09/17/16 15:30 10/17/16 15:29 Glucagon (Glucagon Inj) 1 mg UD PRN SQ 09/17/16 15:30 10/17/16 15:29 Miscellaneous Information (Consult Glycemic Management Pharmacy) 1 ea UD N/A 09/17/16 16:07 10/17/16 16:06 Albuterol (Ventolin Hfa Inhaler) 2 puffs Q4H PRN INH 09/17/16 17:30 10/17/16 15:29 Sodium Biphosphate/ Sodium Phosphate (Fleet Enema) 132 ml DAILY PRN ND 09/18/16 14:30 10/18/16 14:29 09/18/16 15:46 132 ML Objective Vital Signs Date Time Temp Pulse Resp B/P Pulse Ox O2 Delivery O2 Flow Rate FiO2 09/19/16 08:11 Room Air 09/19/16 07:00 36.6 65 18 135/73 98 Room Air 09/19/16 00:11 36.9 65 18 106/68 97 Room Air 09/19/16 00:00 Room Air 09/18/16 20:45 70 101/64 97 Room Air 09/18/16 20:00 Room Air 09/18/16 16:45 Room Air 09/18/16 14:47 37.0 67 18 96/62 95 Room Air Physical Exam General Appearance: no apparent distress, + obese, + pertinent finding (+ facial hair) Respiratory/Chest: chest non-tender, lungs clear, normal breath sounds, no respiratory distress, no accessory muscle use Cardiovascular: regular rate, rhythm, no edema, no murmur Abdomen: normal bowel sounds, soft, + tenderness (throughout abdomen) Extremities: normal inspection, no pedal edema Neurologic/Psychiatric: no motor/sensory deficits, alert, normal mood/affect Skin: normal color Lymphatic: no adenopathy Laboratory Results Last 24 Hours Test 09/18/16 16:44 09/18/16 19:34 09/19/16 02:06 09/19/16 06:37 Bedside Glucose 195 mg/dl 181 mg/dl 130 mg/dl White Blood Count 9.41 K/uL Red Blood Count 4.17 M/uL Hemoglobin 12.1 g/dL Hematocrit 36.5 % Mean Corpuscular Volume 87.5 fL Mean Corpuscular Hemoglobin 29.0 pg Mean Corpuscular Hemoglobin Concent 33.2 g/dl RDW Standard Deviation 41.7 fL RDW Coefficient of Variation 12.9 % Platelet Count 152 K/uL Mean Platelet Volume 10.7 fL Sodium Level 143 mmol/L Potassium Level 3.7 mmol/L Chloride Level 104 mmol/L Carbon Dioxide Level 29 mmol/L Anion Gap 10.0 mmol/L Blood Urea Nitrogen 17 mg/dl Creatinine 1.10 mg/dl Est Creatinine Clear Calc Drug Dose 54.1 ml/min Estimated GFR () 61.9 Estimated GFR (Non- 53.4 BUN/Creatinine Ratio 15.7 Random Glucose 129 mg/dl Calcium Level 9.6 mg/dl Magnesium Level 2.0 mg/dl Test 09/19/16 07:42 09/19/16 11:43 Bedside Glucose 125 mg/dl 191 mg/dl Assessment and Plan This is a 61 year old female with PMH of uncontrolled diabetes mellitus, requiring insulin with multiple complications including neuropathy and nephropathy, chronic kidney disease stage III, hx. of CAD s/p CABG and PCI/stent , hx. of ventricular fibrillation s/p implantable cardioverter/defibrillator, HTN, HLD, diastolic CHF, severe SACHA not on CPAP Generalized Abdominal Pain possibly Colitis 09/19 appreciate GI input continue bowel regimen this morning, question of diarrhea will hold senna/colace continue PPI no plans for EGD at this time 09/18 was admitted last month to [facility] for the flu at that time, found to have C. diff, which was treated patient felt better at that time and was sent to Rehab niece is with her in the room and explains that they want to take her home after w/up is complete Dr. Ramirez, patient's primary - would like patient to have EGD - GI consulted bowel regimen and fleet enema PRN for constipation Flat Affect in the setting of Depression 09/19 continue current depression/anxiety medications psych consultation pending 09/18 patient states that depression seems to be under control She is reserved and difficult to get to answer questions continue Lexapro for now will consult psych for any other recommendations Acute Kidney Injury superimposed on CKD stage 3 creat from 1.4 down to 1.1 seems to be back to baseline, encouraged PO intake Adrenal Incidentaloma CT shows an adrenal cyst would recommend outpatient lab work to check if it is functioning if we need to remove this - will have to f/u at [place] or tertiary center, as per general surgery here Insulin Dependent DM2, uncontrolled Ha1c in August 2016 > 9.0% appreciate glycemic control consult novolog sliding scale Lantus is also on a sliding scale to prevent hypoglycemia CAD s/p CABG and PCI continue current cardiac medications - aspirin, Plavix, b-clyde, TAMARA-I, statin , Imdur Hx. of V. Fib s/p ICD DVT ppx subq heparin FULL CODE
[2016-09-19 15:06] VITALS: BP 107/64; PULSE 62; TEMP 36.6; O2SAT 99
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
[2016-09-19] MEDS ORDERED: TAP WATER ENEMA PR ONE (15:40)
[2016-09-19 20:32] VITALS: BP 115/71; PULSE 69
[2016-09-19] MEDS: CLOPIDOGREL BISULFATE 75 MG TAB PO SCH (21:39)
[2016-09-19] MEDS: hydrOXYzine HCL 25 MG TAB PO SCH (21:43)
[2016-09-19] MEDS ORDERED: TAP WATER ENEMA PR SCH (22:00)
[2016-09-20 00:22] VITALS: BP 106/61; PULSE 60; TEMP 36.6; O2SAT 99
[2016-09-20] MEDS: HEPARIN SOD 5000 UNIT/0.5 ML CARP SQ SCH ×3 (02:35→18:25)
[2016-09-20 05:35] LABS: HEMATOCRIT 37.7 % (37-47); MEAN CELL VOLUME 88.1 fL (80-100); MEAN CORPUSCULAR HEMOGLOBIN 29.4 pg (25-34); MEAN CORPUSCULAR HGB CONC 33.4 g/dl (32-36); MEAN PLATELET VOLUME 10.6 fL (7.4-10.4); PLATELET COUNT 175 K/uL (130-400); RED BLOOD COUNT 4.28 M/uL (4.2-5.4); WHITE BLOOD COUNT 10.78 K/uL (4.8-10.8)
[2016-09-20 06:03] LABS: BUN/CREATININE RATIO 12.7 (10-20); CALCIUM 9.4 mg/dl (8.5-10.1); CREATININE 1.2 mg/dl (0.60-1.20); MAGNESIUM 1.9 mg/dl (1.8-2.4); POTASSIUM 3.7 mmol/L (3.5-5.1)
[2016-09-20] MEDS ORDERED: BISACODYL 10 MG SUPP PR SCH (07:00)
[2016-09-20 07:03] VITALS: BP 138/80; PULSE 60; TEMP 36.6; O2SAT 99
[2016-09-20] MEDS: LACTOBACILLUS ACIDOPHILUS (FLORANEX) TAB PO SCH (08:16)
[2016-09-20] MEDS: ISOSORBIDE MONONITRATE 60 MG TABCR PO SCH (08:16)
[2016-09-20] MEDS: METOPROLOL TARTRATE 25 MG TAB PO SCH ×2 (08:16→20:07)
[2016-09-20] MEDS: ASPIRIN 81 MG ECTAB PO SCH (08:17)
[2016-09-20] MEDS: ROSUVASTATIN CALCIUM 10 MG TAB PO SCH (08:17)
[2016-09-20] MEDS: LISINOPRIL 5 MG TAB PO SCH (08:18)
[2016-09-20] MEDS: PANTOprazole SOD 40 MG TAB PO SCH ×2 (08:18→20:07)
[2016-09-20] MEDS: ESCITALOPRAM OXALATE 10 MG TAB PO SCH (08:18)
[2016-09-20] MEDS: CEROVITE ADV FORMULA TAB PO SCH (08:19)
[2016-09-20] MEDS: MAGNESIUM CHLORIDE 64MG DELAYED REL TAB PO SCH ×3 (08:19→20:08)
[2016-09-20] MEDS: POLYETHYLENE (MIRALAX) 17 GM PACK PO SCH ×3 (08:19→20:06)
[2016-09-20] MEDS: INSULIN ASPART 100 UNITS/ML 3 ML PEN SC SCH ×4 (08:33→22:12)
[2016-09-20] MEDS: INSULIN GLARGINE SOLOSTAR 100 UNITS/ML 3 ML PEN SC SCH ×2 (08:34→22:14)
--- NOTE | 2016-09-20 10:45 | Progress Note ---
Subjective Date of Service: Sep 20, 2016. Subjective Pt evaluation today including: conversation w/ patient, physical exam, lab review, conversation w/ it infrastructure consultant, review of inpatient medication list Saw/examined the patient in room 453 She is actually talking a lot more today, more awake and alert still weak and has not gotten up out of bed today no abdominal pain and tolerated PO diet this morning Problem List Medical Problems: (1) Adrenal nodule Status: Acute (2) Altered mental status Status: Acute (3) Ambulatory dysfunction Status: Acute (4) Blood in stool Status: Acute (5) Cardiomegaly Status: Acute (6) Contusion of multiple sites Status: Acute (7) Dehydration Status: Acute (8) Dehydration Status: Acute (9) Fall Status: Acute (10) Hyperglycemia Status: Acute (11) Influenza-like symptoms Status: Acute Social History Problems: (1) Diabetes mellitus Status: Chronic Review of Systems Constitutional: + fatigue, + weakness Respiratory: No cough, No dyspnea at rest, No dyspnea on exertion, No hemoptysis, No shortness of breath, No sputum, No wheezing Cardiac: No chest pain Abdomen: No diarrhea, No nausea, No pain (resolved), No vomiting Heme: No abnormal bleeding/bruising Medications Current Inpatient Medications Medications (Trade) Dose Ordered Sig/Tera Route Start Time Stop Time Status Last Admin Dose Admin Heparin Sodium (Porcine) (Heparin Sq 5000 Unit/0.5ml) 5,000 unit Q8H SQ 09/17/16 18:00 10/17/16 17:59 09/20/16 02:35 5,000 UNIT Acetaminophen (Tylenol Tab) 650 mg Q4H PRN PO 09/17/16 15:00 10/17/16 14:59 09/19/16 19:18 650 MG Ondansetron HCl (Zofran Inj) 4 mg Q6H PRN IV 09/17/16 15:00 10/17/16 14:59 Aspirin (Ecotrin Tab) 81 mg QAM PO 09/18/16 08:00 10/18/16 07:59 09/20/16 08:17 81 MG Bisacodyl (Dulcolax Supp) 10 mg Q7D@0900 PRN MS 09/17/16 15:30 10/17/16 15:29 Clopidogrel Bisulfate (plAVix TAB) 75 mg HS PO 09/17/16 22:00 10/17/16 21:59 09/19/16 21:39 75 MG Escitalopram Oxalate (Lexapro Tab) 15 mg QAM PO 09/18/16 08:00 10/18/16 07:59 09/20/16 08:18 15 MG Hydroxyzine HCl (Vistaril Tab) 12.5 mg HS PO 09/17/16 22:00 10/17/16 21:59 09/19/16 21:43 12.5 MG Isosorbide Mononitrate (Imdur Ext Rel Tab) 60 mg QAM PO 09/18/16 08:00 10/18/16 07:59 09/20/16 08:16 60 MG Lactobacillus Acidophilus (Floranex Tab) 1 tab DAILY PO 09/18/16 08:00 10/18/16 07:59 09/20/16 08:16 1 TAB Lisinopril (Zestril Tab) 10 mg QAM PO 09/18/16 08:00 10/18/16 07:59 09/20/16 08:18 10 MG Lorazepam (Ativan Tab) 0.5 mg TID PRN PO 09/17/16 15:30 10/17/16 15:29 Magnesium Chloride (Slow-Mag Tab) 64 mg TID PO 09/17/16 20:00 10/17/16 19:59 09/20/16 08:19 64 MG Metoprolol Tartrate (Lopressor Tab) 25 mg BID PO 09/17/16 20:00 10/17/16 19:59 09/20/16 08:16 25 MG Multivitamins/ Minerals (Multivitamin W/ Minerals Tab) 1 tab QAM PO 09/18/16 08:00 10/18/16 07:59 09/20/16 08:19 1 TAB Nitroglycerin (Nitrostat Tab) 0.4 mg UD PRN UT 09/17/16 15:30 10/17/16 15:29 Oxycodone/ Acetaminophen (Percocet 5-325mg Tab) 1 tab Q6H PRN PO 09/17/16 15:30 10/01/16 15:29 09/18/16 03:40 1 TAB Pantoprazole Sodium (Protonix Tab) 40 mg BID PO 09/17/16 20:00 10/17/16 19:59 09/20/16 08:18 40 MG Rosuvastatin Calcium (Crestor Tab) 10 mg QAM PO 09/18/16 08:00 10/18/16 07:59 09/20/16 08:17 10 MG Senna/Docusate Sodium (Senokot S Tab) 2 tab HS PO 09/17/16 22:00 10/17/16 21:59 Future Hold 09/18/16 20:51 2 TAB Miscellaneous Information (Order Awaiting Action) 1 ea QS N/A 09/17/16 16:00 10/17/16 15:59 Insulin Glargine (Lantus Solostar Pen) SEE PROTOCOL BID SC 09/17/16 20:00 10/17/16 19:59 09/20/16 08:34 10 UNIT Insulin Aspart (novoLOG ASPART) SLIDING SCALE If C... ACHS SC 09/17/16 16:30 10/17/16 16:29 09/20/16 08:33 2 UNITS Glucose (Glucose 40% Gel) 15-30 GRAMS 15 GRAMS... UD PRN PO 09/17/16 15:30 10/17/16 15:29 Glucose (Glucose Chew Tab) 4-8 Tablets 4 Tabl... UD PRN PO 09/17/16 15:30 10/17/16 15:29 Dextrose (Dextrose 50% 50ML Syringe) 25-50ML OF 50% DW IV FOR... UD PRN IV 09/17/16 15:30 10/17/16 15:29 Glucagon (Glucagon Inj) 1 mg UD PRN SQ 09/17/16 15:30 10/17/16 15:29 Miscellaneous Information (Consult Glycemic Management Pharmacy) 1 ea UD N/A 09/17/16 16:07 10/17/16 16:06 Albuterol (Ventolin Hfa Inhaler) 2 puffs Q4H PRN INH 09/17/16 17:30 10/17/16 15:29 Sodium Biphosphate/ Sodium Phosphate (Fleet Enema) 132 ml DAILY PRN MS 09/18/16 14:30 10/18/16 14:29 09/18/16 15:46 132 ML Polyethylene (Miralax Powder Packet) 17 gm TID PO 09/19/16 20:00 10/19/16 19:59 09/20/16 08:19 17 GM Objective Vital Signs Date Time Temp Pulse Resp B/P Pulse Ox O2 Delivery O2 Flow Rate FiO2 09/20/16 08:00 Room Air 09/20/16 07:03 36.6 60 18 138/80 99 Room Air 09/20/16 00:22 36.6 60 18 106/61 99 Room Air 09/20/16 00:00 Room Air 09/19/16 20:32 69 115/71 09/19/16 19:35 Room Air 09/19/16 15:06 36.6 62 22 107/64 99 Room Air Physical Exam General Appearance: no apparent distress, + obese Respiratory/Chest: lungs clear, normal breath sounds, no respiratory distress, no accessory muscle use Cardiovascular: regular rate, rhythm, no edema, no murmur Abdomen: normal bowel sounds, non tender, soft Extremities: normal inspection, no pedal edema Neurologic/Psychiatric: no motor/sensory deficits, alert, + pertinent finding ( slowed responses) Laboratory Results Last 24 Hours Test 09/19/16 11:43 09/19/16 16:07 09/19/16 20:14 09/20/16 05:09 Bedside Glucose 191 mg/dl 138 mg/dl 181 mg/dl White Blood Count 10.78 K/uL Red Blood Count 4.28 M/uL Hemoglobin 12.6 g/dL Hematocrit 37.7 % Mean Corpuscular Volume 88.1 fL Mean Corpuscular Hemoglobin 29.4 pg Mean Corpuscular Hemoglobin Concent 33.4 g/dl RDW Standard Deviation 41.5 fL RDW Coefficient of Variation 12.9 % Platelet Count 175 K/uL Mean Platelet Volume 10.6 fL Sodium Level 142 mmol/L Potassium Level 3.7 mmol/L Chloride Level 104 mmol/L Carbon Dioxide Level 30 mmol/L Anion Gap 8.0 mmol/L Blood Urea Nitrogen 15 mg/dl Creatinine 1.20 mg/dl Est Creatinine Clear Calc Drug Dose 49.6 ml/min Estimated GFR () 55.7 Estimated GFR (Non- 48.1 BUN/Creatinine Ratio 12.7 Random Glucose 97 mg/dl Calcium Level 9.4 mg/dl Magnesium Level 1.9 mg/dl Test 09/20/16 07:13 Bedside Glucose 104 mg/dl Assessment and Plan This is a 61 year old female with PMH of uncontrolled diabetes mellitus, requiring insulin with multiple complications including neuropathy and nephropathy, chronic kidney disease stage III, hx. of CAD s/p CABG and PCI/stent , hx. of ventricular fibrillation s/p implantable cardioverter/defibrillator, HTN, HLD, diastolic CHF, severe SACHA not on CPAP Generalized Abdominal Pain possibly Colitis 09/20 C. diff negative stool cultures pending continue PPI hold off on enema appreciate GI input she is now tolerating diet 09/19 appreciate GI input continue bowel regimen this morning, question of diarrhea will hold senna/colace continue PPI no plans for EGD at this time 09/18 was admitted last month to [facility] for the flu at that time, found to have C. diff, which was treated patient felt better at that time and was sent to Rehab niece is with her in the room and explains that they want to take her home after w/up is complete Dr. Ramirze, patient's primary - would like patient to have EGD - GI consulted bowel regimen and fleet enema PRN for constipation Flat Affect in the setting of Depression 09/20 psychomotor +depression on Lexapro 15mg possibly related to marijuana use? she is more awake/alert today 09/19 continue current depression/anxiety medications psych consultation pending 09/18 patient states that depression seems to be under control She is reserved and difficult to get to answer questions continue Lexapro for now will consult psych for any other recommendations Acute Kidney Injury superimposed on CKD stage 3 creat from 1.4 down to 1.1 seems to be back to baseline, encouraged PO intake Adrenal Incidentaloma CT shows an adrenal cyst would recommend outpatient lab work to check if it is functioning if we need to remove this - will have to f/u at [place] or tertiary center, as per general surgery here Insulin Dependent DM2, uncontrolled Ha1c in August 2016 > 9.0% appreciate glycemic control consult novolog sliding scale Lantus is also on a sliding scale to prevent hypoglycemia CAD s/p CABG and PCI continue current cardiac medications - aspirin, Plavix, b-clyde, TAMARA-I, statin , Imdur Hx. of V. Fib s/p ICD DVT ppx subq heparin FULL CODE family wanted to speak with palliative care nurse - home with home hospice is what they wanted - she may not qualify for this d/c with home health in 1-2 days
--- NOTE | 2016-09-20 11:06 | Pharmacy Progress Note ---
Glycemic: Assessment & Plan Date of Service Sep 20, 2016. Assessment & Plan Test 09/19/16 11:43 09/19/16 16:07 09/19/16 20:14 09/20/16 05:09 Bedside Glucose 191 mg/dl (70-90) 138 mg/dl (70-90) 181 mg/dl (70-90) Random Glucose 97 mg/dl (70-99) Test 09/20/16 07:13 Bedside Glucose 104 mg/dl (70-90) The patient is currently receiving about 53 units of insulin per day. BSGs ranging 97 - 191 mg/dl over the past 24hrs. Lantus dosing based on BSG to prevent hypoglycemia, as that was a problem with patient during last admission. Cdif negative, psych consulted, case management working with patient regarding discharge plans/care. PLAN FOR INPATIENT GLYCEMIC CONTROL: * Lantus SQ BID * Give 10 units if BSG is below 120mg/dL * Give 20 units if BSG is 120-180mg/dL * Give 25 units if BSG is above 180mg/dL * NOVOLOG per scale ACHS or Q6hrs while NPO * Goal Range: Low 110 mg/dL - High 150 mg/dL * Correction Factor: 30 mg/dL/unit * Carb ratio of 1 unit per 10 grams CHO consumed BSGs continue to improve, no changes needed to inpatient regimen at this time. Pharmacy will continue to monitor patient daily and write orders per LTAC, located within [facility] inpatient glycemic control protocol. Thanks. * Please note that the plan above was derived based on current level of insulin resistance and hospital stress. These recommendations are appropriate for inpatient admission only. Plan of care upon discharge will need to be reassessed to avoid potential outpatient hypo/hyperglycemia.
[2016-09-20] MEDS: ACETAMINOPHEN 325 MG TAB PO PRN (12:08)
--- NOTE | 2016-09-20 12:10 | Gastroenterology Progress Note ---
Progress Note Date of Service: Sep 20, 2016 Subjective Pt evaluation today including: conversation w/ patient, conversation w/ family , physical exam, chart review, lab review, review of inpatient medication list Pt awake, in bed, family at bedside. She states abd feels better. Denies any n/ v after breakfast. Noted multiple BMs yesterday. Cdiff negative, Stool cx pending. Review of Systems Constitutional: No chills, No fever Respiratory: No cough, No shortness of breath Cardiac: No chest pain Abdomen: + pain (improved), No nausea, No vomiting Medications Current Inpatient Medications Medications (Trade) Dose Ordered Sig/Tera Route Start Time Stop Time Status Last Admin Dose Admin Heparin Sodium (Porcine) (Heparin Sq 5000 Unit/0.5ml) 5,000 unit Q8H SQ 09/17/16 18:00 10/17/16 17:59 09/20/16 10:51 5,000 UNIT Acetaminophen (Tylenol Tab) 650 mg Q4H PRN PO 09/17/16 15:00 10/17/16 14:59 09/19/16 19:18 650 MG Ondansetron HCl (Zofran Inj) 4 mg Q6H PRN IV 09/17/16 15:00 10/17/16 14:59 Aspirin (Ecotrin Tab) 81 mg QAM PO 09/18/16 08:00 10/18/16 07:59 09/20/16 08:17 81 MG Bisacodyl (Dulcolax Supp) 10 mg Q7D@0900 PRN MO 09/17/16 15:30 10/17/16 15:29 Clopidogrel Bisulfate (plAVix TAB) 75 mg HS PO 09/17/16 22:00 10/17/16 21:59 09/19/16 21:39 75 MG Escitalopram Oxalate (Lexapro Tab) 15 mg QAM PO 09/18/16 08:00 10/18/16 07:59 09/20/16 08:18 15 MG Hydroxyzine HCl (Vistaril Tab) 12.5 mg HS PO 09/17/16 22:00 10/17/16 21:59 09/19/16 21:43 12.5 MG Isosorbide Mononitrate (Imdur Ext Rel Tab) 60 mg QAM PO 09/18/16 08:00 10/18/16 07:59 09/20/16 08:16 60 MG Lactobacillus Acidophilus (Floranex Tab) 1 tab DAILY PO 09/18/16 08:00 10/18/16 07:59 09/20/16 08:16 1 TAB Lisinopril (Zestril Tab) 10 mg QAM PO 09/18/16 08:00 10/18/16 07:59 09/20/16 08:18 10 MG Lorazepam (Ativan Tab) 0.5 mg TID PRN PO 09/17/16 15:30 10/17/16 15:29 Magnesium Chloride (Slow-Mag Tab) 64 mg TID PO 09/17/16 20:00 10/17/16 19:59 09/20/16 08:19 64 MG Metoprolol Tartrate (Lopressor Tab) 25 mg BID PO 09/17/16 20:00 10/17/16 19:59 09/20/16 08:16 25 MG Multivitamins/ Minerals (Multivitamin W/ Minerals Tab) 1 tab QAM PO 09/18/16 08:00 10/18/16 07:59 09/20/16 08:19 1 TAB Nitroglycerin (Nitrostat Tab) 0.4 mg UD PRN UT 09/17/16 15:30 10/17/16 15:29 Oxycodone/ Acetaminophen (Percocet 5-325mg Tab) 1 tab Q6H PRN PO 09/17/16 15:30 10/01/16 15:29 09/18/16 03:40 1 TAB Pantoprazole Sodium (Protonix Tab) 40 mg BID PO 09/17/16 20:00 10/17/16 19:59 09/20/16 08:18 40 MG Rosuvastatin Calcium (Crestor Tab) 10 mg QAM PO 09/18/16 08:00 10/18/16 07:59 09/20/16 08:17 10 MG Senna/Docusate Sodium (Senokot S Tab) 2 tab HS PO 09/17/16 22:00 10/17/16 21:59 Future Hold 09/18/16 20:51 2 TAB Miscellaneous Information (Order Awaiting Action) 1 ea QS N/A 09/17/16 16:00 10/17/16 15:59 Insulin Glargine (Lantus Solostar Pen) SEE PROTOCOL BID SC 09/17/16 20:00 10/17/16 19:59 09/20/16 08:34 10 UNIT Insulin Aspart (novoLOG ASPART) SLIDING SCALE If C... ACHS SC 09/17/16 16:30 10/17/16 16:29 09/20/16 08:33 2 UNITS Glucose (Glucose 40% Gel) 15-30 GRAMS 15 GRAMS... UD PRN PO 09/17/16 15:30 10/17/16 15:29 Glucose (Glucose Chew Tab) 4-8 Tablets 4 Tabl... UD PRN PO 09/17/16 15:30 10/17/16 15:29 Dextrose (Dextrose 50% 50ML Syringe) 25-50ML OF 50% DW IV FOR... UD PRN IV 09/17/16 15:30 10/17/16 15:29 Glucagon (Glucagon Inj) 1 mg UD PRN SQ 09/17/16 15:30 10/17/16 15:29 Miscellaneous Information (Consult Glycemic Management Pharmacy) 1 ea UD N/A 09/17/16 16:07 10/17/16 16:06 Albuterol (Ventolin Hfa Inhaler) 2 puffs Q4H PRN INH 09/17/16 17:30 10/17/16 15:29 Sodium Biphosphate/ Sodium Phosphate (Fleet Enema) 132 ml DAILY PRN MO 09/18/16 14:30 10/18/16 14:29 09/18/16 15:46 132 ML Polyethylene (Miralax Powder Packet) 17 gm TID PO 09/19/16 20:00 10/19/16 19:59 09/20/16 08:19 17 GM Objective Vital Signs Date Time Temp Pulse Resp B/P Pulse Ox O2 Delivery O2 Flow Rate FiO2 09/20/16 08:00 Room Air 09/20/16 07:03 36.6 60 18 138/80 99 Room Air 09/20/16 00:22 36.6 60 18 106/61 99 Room Air 09/20/16 00:00 Room Air 09/19/16 20:32 69 115/71 09/19/16 19:35 Room Air 09/19/16 15:06 36.6 62 22 107/64 99 Room Air Physical Exam General Appearance: WD/WN, no apparent distress, + obese Eyes: normal inspection, PERRL, EOMI Neck: supple, no JVD, trachea midline Respiratory/Chest: normal breath sounds, no respiratory distress, no accessory muscle use Cardiovascular: regular rate, rhythm, no gallop, no murmur Abdomen: normal bowel sounds, soft, + tenderness (TTP diffuse abd area) Extremities: normal inspection Neurologic/Psych: alert, oriented x 3, + depressed affect Skin: normal color, no jaundice, no rash Laboratory Results Last 24 Hours Test 09/19/16 16:07 09/19/16 20:14 09/20/16 05:09 09/20/16 07:13 Bedside Glucose 138 mg/dl 181 mg/dl 104 mg/dl White Blood Count 10.78 K/uL Red Blood Count 4.28 M/uL Hemoglobin 12.6 g/dL Hematocrit 37.7 % Mean Corpuscular Volume 88.1 fL Mean Corpuscular Hemoglobin 29.4 pg Mean Corpuscular Hemoglobin Concent 33.4 g/dl RDW Standard Deviation 41.5 fL RDW Coefficient of Variation 12.9 % Platelet Count 175 K/uL Mean Platelet Volume 10.6 fL Sodium Level 142 mmol/L Potassium Level 3.7 mmol/L Chloride Level 104 mmol/L Carbon Dioxide Level 30 mmol/L Anion Gap 8.0 mmol/L Blood Urea Nitrogen 15 mg/dl Creatinine 1.20 mg/dl Est Creatinine Clear Calc Drug Dose 49.6 ml/min Estimated GFR () 55.7 Estimated GFR (Non- 48.1 BUN/Creatinine Ratio 12.7 Random Glucose 97 mg/dl Calcium Level 9.4 mg/dl Magnesium Level 1.9 mg/dl Test 09/20/16 11:22 Bedside Glucose 173 mg/dl Assessment and Plan Pt is a 61 y/o female seen for abd pain suspected to be due to constipation (CT abd/pelvis evidence of constipation and rectosigmoid fecal impaction). She had multiple BMs yesterday w Miralax, Fleets enema. Recent Cdiff in 08/2016 but repeat study at this admission negative. Stool cx pending. She currently reports abd pain improved, denies any nausea or vomiting. - Continue current bowel regimen - Continue Florastor. - KUB today - Continue current diet. ATTESTATION: I have performed a history and physical examination of this patient and reviewed the electronic record. Specifically, on physical examination there is mild LLQ tenderness. I have discussed the case with PRITESH Richardson. The above note reflects my findings, conclusions, and recommendations. Tiago Meyer MD
--- NOTE | 2016-09-20 13:21 | Clinical Documentation Query ---
CLINICAL DOCUMENTATION QUERY Dr. FARAH, In your clinical opinion is this patient being managed for: ( X ) Pressure ulcer R great toe, stage 2, healing, POA ( ) Other explanation of clinical findings (Please Explain) ( ) Unable to determine (Please Define) ( ) Need to Discuss ( ) Not Agree The medical record reflects the following clinical findings, treatment, and risk factors. Clinical Indicators: 63 yo female noted to have had a WOCN consult. WOCN documented R great toe ulcer is consistent with a pressure ulcer, partial thickness healing Treatment: WOCN consult, cleanse with NSS, apply aquacel AG and duoderm q 3 days and prn. Risk Factors: general debility, DM, depression Please clarify and document your clinical opinion in the progress notes and discharge summary. Terms such as "probable", "suspected", "likely", "questionable", "possible", or "still to be ruled out" are acceptable. IF IN AGREEMENT, YOU MUST DOCUMENT ABOVE DIAGNOSTIC STATEMENT IN DAILY PROGRESS NOTES AND DISCHARGE SUMMARY. This document is not part of the patient's record. Thank You, Sharmila Warren RN [phone]
--- NOTE | 2016-09-20 13:22 | Medical Student: [facility] ---
Med Student Progress Note Date of Service Sep 20, 2016. Subjective Pt evaluation today including: conversation w/ patient, chart review, lab review, review of studies Ms. Roberta Pereyra is a 61 year old female with a past medical history significant for diabetes mellitus, CAD s/p CABG in 1997, HTN, HLD, diastolic CHF, h/o Vtach s/p ICD and pacemaker, GERD, CKD stage 3, and other medical conditions who is consulted by Dr. Baptiste for "depression with flat affect." Her recent medical history is complicated by the following admissions: From 08/15/16 - 08/17/16, she was admitted at [facility] for C.Diff, and was discharged to [facility]. Her family reports significant decline in her physical health, but neither the patient nor her family are unable to provide a clear timeline as to how long this has been occurring. Today she is lethargic and easily arouses to voice. She mostly responds to yes or no questions and rarely elaborates. She was unable to express her current mood. She does reports abdominal pain today which she is unable to localize. She denies suicidal or homicidal ideations today. Risk of violence to self within the last 6 months: No Risk of violence to others within the last 6 months: No Review of Systems Abdomen: + pain Musculoskeletal: + problem reported (back pain ) All Other Systems: Reviewed and Negative Objective Vital Signs Date Time Temp Pulse Resp B/P Pulse Ox O2 Delivery O2 Flow Rate FiO2 09/20/16 08:00 Room Air 09/20/16 07:03 36.6 60 18 138/80 99 Room Air 09/20/16 00:22 36.6 60 18 106/61 99 Room Air 09/20/16 00:00 Room Air 09/19/16 20:32 69 115/71 09/19/16 19:35 Room Air 09/19/16 15:06 36.6 62 22 107/64 99 Room Air Physical Exam Comments: Physical Exam: Completed by Dr. Baptiste, attending physician, on 09/21/15 was reviewed and was appropriate for this consultation. MENTAL STATUS EXAM: Appearance: obese female, dressed in a hospital gown, lying comfortably in her hospital bed. She appears older than her stated age with lopez hair somewhat disheveled . She is very lethargic, yet arouses to voice. She is somewhat uncooperative with the interview. Eye contact: poor. Motor behavior: Psychomotor retardation present Speech: Low volume, slowed rate, normal tone. No dysarthria, no stuttering. Affect: Depressed, flat. Congruent with stated mood. Mood: "I don't know" Thought process: She struggles to answer open ended questions. She tends to answer yes/no questions with "yes." Answered some open ended questions inappropriately with "yes" Thought content: She currently denies SI, HI Perception: Denies visual or auditory hallucinations Cognition: Unable to assess due to lack of cooperation. Intelligence: average to below average Insight: impaired. Judgment: impaired Laboratory Results Last 24 Hours Test 09/19/16 16:07 09/19/16 20:14 09/20/16 05:09 09/20/16 07:13 Bedside Glucose 138 mg/dl 181 mg/dl 104 mg/dl White Blood Count 10.78 K/uL Red Blood Count 4.28 M/uL Hemoglobin 12.6 g/dL Hematocrit 37.7 % Mean Corpuscular Volume 88.1 fL Mean Corpuscular Hemoglobin 29.4 pg Mean Corpuscular Hemoglobin Concent 33.4 g/dl RDW Standard Deviation 41.5 fL RDW Coefficient of Variation 12.9 % Platelet Count 175 K/uL Mean Platelet Volume 10.6 fL Sodium Level 142 mmol/L Potassium Level 3.7 mmol/L Chloride Level 104 mmol/L Carbon Dioxide Level 30 mmol/L Anion Gap 8.0 mmol/L Blood Urea Nitrogen 15 mg/dl Creatinine 1.20 mg/dl Est Creatinine Clear Calc Drug Dose 49.6 ml/min Estimated GFR () 55.7 Estimated GFR (Non- 48.1 BUN/Creatinine Ratio 12.7 Random Glucose 97 mg/dl Calcium Level 9.4 mg/dl Magnesium Level 1.9 mg/dl Test 09/20/16 11:22 Bedside Glucose 173 mg/dl Medications Medications (Trade) Dose Ordered Sig/Tera Route Start Time Stop Time Status Last Admin Dose Admin Polyethylene (Miralax Powder Packet) 17 gm TID PO 09/19/16 20:00 10/19/16 19:59 09/20/16 08:19 17 GM Miscellaneous (Tap Water Enema) 1 ea HS OR 09/19/16 22:00 09/19/16 22:01 DC 09/19/16 21:40 1 EA Miscellaneous (Tap Water Enema) 1 ea 1540 ONCE OR 09/19/16 15:40 09/19/16 16:10 DC 09/19/16 17:22 1 EA Assessment and Plan Assessment and Plan: Ms Roberta Pereyra is a 61 year old woman who was consulted for signs of depression, flat affect, and lethargy. She meets most diagnostic criteria for major depressive episode including depressed mood, anhedonia, feeling of guilt, hypersomnia, diminished concentration, psychomotor retardation , and fatigue. However, she is a poor historian and it is difficult to quantify the duration of her symptoms. There is concern from the patient's family that she may have been off of her antidepressant medications for an unclear amount of time as she lives alone. It would be worthwhile to communicate with her PCP, Dr. Ramirez in regards to her depression symptoms, as her family does not have a clear timeline for the duration. The most likely diagnosis is recurrent episode of major depressive disorder or poor medication compliance. Hypoactive delirium was considered, and cannot be ruled out at this time. There is also some concern from her primary team about marijuana use, but I was unable to obtain any additional information about substance abuse at this time. RECOMMENDATIONS: 1. Major Depressive disorder, recurrent, moderate to severe -Continue home Lexapro 15 mg po qAM for depression, maximum daily dosage is 20 mg/day -Recommend outpatient psychiatrist and therapist given her decline in physical health over the past year, perhaps in home as there is question as to her ability to attend appointments -Was unable to obtain PHQ-9 today due to poor cooperation. -Collect additional information from the patients family, including duration of mood symptoms, medication compliance, and level of assistance with ADL including medication available at home -Patient does not meet criteria for inpatient psychiatric admission at this time. -Psychiatry will continue to follow 2. Generalized anxiety disorder, -Continue home Vistaril 12.5 mg po qHS for anxiety -Continue home Ativan 0.5 mg po TID PRN for anxiety 3. Aftercare Planning: -Recommend outpatient psychiatrist and therapist given her decline in physical health over the past year, perhaps in home as there is question as to her ability to attend appointments -Recommend follow up with PCP in regards to complex medical history
--- NOTE | 2016-09-20 14:52 | DIAGNOSTIC IMAGING REPORT ---
KUB CLINICAL HISTORY: Constipation. FINDINGS: 2 AP supine abdominal radiographs are correlated with abdominal CT dated 09/17/2016. There is a nonobstructed abdominal bowel gas pattern noting moderate colonic fecal retention. Cholecystectomy clips are seen in the right upper quadrant. No evidence of intraperitoneal free air is seen on these supine views. Small phleboliths are noted in the pelvis. The skeletal structures are osteopenic. There is lumbosacral spondylosis. Cardiomegaly, midline sternotomy wires, and pacemaker leads are present at the lung bases. Visualized lung parenchyma at the lung bases appears clear. IMPRESSION: Nonobstructed abdominal bowel gas pattern noting moderate colonic fecal retention. Electronically signed by: Diego Ricardo M.D. 09/20/2016 2:51 PM Dictated Date/Time: 09/20/2016 2:46 PM
[2016-09-20 14:55] VITALS: BP 90/57; PULSE 65; TEMP 36.7; O2SAT 97
[2016-09-20] MEDS ORDERED: NURSING VERBAL MED ORDER ONE (15:30)
--- NOTE | 2016-09-20 15:45 | Palliative Care Consultation ---
Consultation Date of Consultation: Sep 20, 2016. Requesting Physician: Dr. Baptiste Attending Physician: Dr. Baptiste Reason for Consultation: Goals of care History of Present Illness This 61 year old female patient presented to the ED three days ago with complaints of intractable back pain, abdominal pain and weakness. This patient with an extensive history listed below was recently admitted to the hospital from 08/15-08/17 with C. difficile, was treated and discharged to [facility]. She lives in an apartment where she has home care 6hr/day 5days/week and apparently has been unable to get out of bed, and was unable to get out of bed when she was at [facility] [place] as well. She also complained of constipation, CT abd/pelvis essentially showed fecal impaction, left adrenal nodule, right renal cyst. Patient has had GI, pain management, and psych consults. Patient is stating that she does not want to go to rehab and wants to go home with hospice. Her family believes she is "giving up." Palliative care consulted to establish goals of care. I met with the patient in her room. She is slow to answer questions, keeps eyes closed most of the time. She c/o abdominal pain 10 despite lying in bed in no distress, no facial grimacing or any other noticeable signs of pain. Occasionally, she just would not answer a question. However, she is alert and oriented x4 and states that her goal is to just go home. She does not want to go to rehab as she states she does not care if she's able to get out of be. I asked what was important to her in her life and what would make her quality of life better and she just shrugged her shoulders and said, "I'd just as soon be done with it all." We discussed what hospice is and that at this point I'm not certain that she would be eligible. She understands and states she just wants to go home with her caregivers, home health through [facility] and her niece is going to live with her. She gave me permission to set up a meeting with her sister/POA , Sarah, to discuss. Patient stated she has an advance directive which states that in an end-stage medical condition she would not want heroic measures such as a feeding tube, CPR, or intubation. I discussed code status and patient states that if she was found without a pulse and/or not breathing, she would not want to be resuscitated. Past Medical/Surgical History Medical History: CAD s/p CABG DM, insulin dependent HTN HLD Diastolic CHF, EF 60-65% on last echo CKD stage III Depression GERD Diabetic retinopathy Neuropathy SACHA Polymyalgia rheumatica Ventricular fibrillation arrest x2 Surgical History: CABG x3 vessels ICD placement Appendectomy Cholecystectomy Hysterectomy Social History Smoking Status: Former Smoker (quit 30+ years ago ) History of Alcohol Use: No Drug Use: none Marital Status: Housing Status: lives alone Occupation Status: disabled Review of Systems Constitutional: + weakness ENT: No trouble swallowing Respiratory: No dyspnea on exertion, No shortness of breath Cardiac: No chest pain Abdomen: + pain, + problem reported (decreased appetite), No nausea, No vomiting Psychiatric: + anhedonism, + depression symptoms Allergies Coded Allergies: BEE STING (Verified Allergy, Severe, SWELLING, 05/05/16) Lidocaine (Verified Allergy, Severe, ANAPHYLAXIS, 05/05/16) Morphine (Verified Allergy, Mild, itching, 05/05/16) Tramadol (Verified Allergy, Mild, ITCHING, 05/05/16) Trazodone (Verified Allergy, Mild, ITCHING, 05/05/16) Medications Current Inpatient Medications Medications (Trade) Dose Ordered Sig/Tera Route Start Time Stop Time Status Last Admin Dose Admin Heparin Sodium (Porcine) (Heparin Sq 5000 Unit/0.5ml) 5,000 unit Q8H SQ 09/17/16 18:00 10/17/16 17:59 09/20/16 10:51 5,000 UNIT Acetaminophen (Tylenol Tab) 650 mg Q4H PRN PO 09/17/16 15:00 10/17/16 14:59 09/20/16 12:08 650 MG Ondansetron HCl (Zofran Inj) 4 mg Q6H PRN IV 09/17/16 15:00 10/17/16 14:59 Aspirin (Ecotrin Tab) 81 mg QAM PO 09/18/16 08:00 10/18/16 07:59 09/20/16 08:17 81 MG Bisacodyl (Dulcolax Supp) 10 mg Q7D@0900 PRN OK 09/17/16 15:30 10/17/16 15:29 Clopidogrel Bisulfate (plAVix TAB) 75 mg HS PO 09/17/16 22:00 10/17/16 21:59 09/19/16 21:39 75 MG Escitalopram Oxalate (Lexapro Tab) 15 mg QAM PO 09/18/16 08:00 10/18/16 07:59 09/20/16 08:18 15 MG Hydroxyzine HCl (Vistaril Tab) 12.5 mg HS PO 09/17/16 22:00 10/17/16 21:59 09/19/16 21:43 12.5 MG Isosorbide Mononitrate (Imdur Ext Rel Tab) 60 mg QAM PO 09/18/16 08:00 10/18/16 07:59 09/20/16 08:16 60 MG Lactobacillus Acidophilus (Floranex Tab) 1 tab DAILY PO 09/18/16 08:00 10/18/16 07:59 09/20/16 08:16 1 TAB Lisinopril (Zestril Tab) 10 mg QAM PO 09/18/16 08:00 10/18/16 07:59 09/20/16 08:18 10 MG Lorazepam (Ativan Tab) 0.5 mg TID PRN PO 09/17/16 15:30 10/17/16 15:29 Magnesium Chloride (Slow-Mag Tab) 64 mg TID PO 09/17/16 20:00 10/17/16 19:59 09/20/16 08:19 64 MG Metoprolol Tartrate (Lopressor Tab) 25 mg BID PO 09/17/16 20:00 10/17/16 19:59 09/20/16 08:16 25 MG Multivitamins/ Minerals (Multivitamin W/ Minerals Tab) 1 tab QAM PO 09/18/16 08:00 10/18/16 07:59 09/20/16 08:19 1 TAB Nitroglycerin (Nitrostat Tab) 0.4 mg UD PRN UT 09/17/16 15:30 10/17/16 15:29 Oxycodone/ Acetaminophen (Percocet 5-325mg Tab) 1 tab Q6H PRN PO 09/17/16 15:30 10/01/16 15:29 09/18/16 03:40 1 TAB Pantoprazole Sodium (Protonix Tab) 40 mg BID PO 09/17/16 20:00 10/17/16 19:59 3/9/17 08:18 40 MG Rosuvastatin Calcium (Crestor Tab) 10 mg QAM PO 09/18/16 08:00 10/18/16 07:59 09/20/16 08:17 10 MG Senna/Docusate Sodium (Senokot S Tab) 2 tab HS PO 09/17/16 22:00 10/17/16 21:59 Future Hold 09/18/16 20:51 2 TAB Miscellaneous Information (Order Awaiting Action) 1 ea QS N/A 09/17/16 16:00 10/17/16 15:59 Insulin Glargine (Lantus Solostar Pen) SEE PROTOCOL BID SC 09/17/16 20:00 10/17/16 19:59 09/20/16 08:34 10 UNIT Insulin Aspart (novoLOG ASPART) SLIDING SCALE If C... ACHS SC 09/17/16 16:30 10/17/16 16:29 09/20/16 12:48 1 UNITS Glucose (Glucose 40% Gel) 15-30 GRAMS 15 GRAMS... UD PRN PO 09/17/16 15:30 10/17/16 15:29 Glucose (Glucose Chew Tab) 4-8 Tablets 4 Tabl... UD PRN PO 09/17/16 15:30 10/17/16 15:29 Dextrose (Dextrose 50% 50ML Syringe) 25-50ML OF 50% DW IV FOR... UD PRN IV 09/17/16 15:30 10/17/16 15:29 Glucagon (Glucagon Inj) 1 mg UD PRN SQ 09/17/16 15:30 10/17/16 15:29 Miscellaneous Information (Consult Glycemic Management Pharmacy) 1 ea UD N/A 09/17/16 16:07 10/17/16 16:06 Albuterol (Ventolin Hfa Inhaler) 2 puffs Q4H PRN INH 09/17/16 17:30 10/17/16 15:29 Sodium Biphosphate/ Sodium Phosphate (Fleet Enema) 132 ml DAILY PRN OK 09/18/16 14:30 10/18/16 14:29 09/18/16 15:46 132 ML Polyethylene (Miralax Powder Packet) 17 gm TID PO 09/19/16 20:00 10/19/16 19:59 09/20/16 08:19 17 GM Physical Exam Date Time Temp Pulse Resp B/P Pulse Ox O2 Delivery O2 Flow Rate FiO2 09/20/16 08:00 Room Air 09/20/16 07:03 36.6 60 18 138/80 99 Room Air 09/20/16 00:22 36.6 60 18 106/61 99 Room Air 09/20/16 00:00 Room Air 09/19/16 20:32 69 115/71 09/19/16 19:35 Room Air 09/19/16 15:06 36.6 62 22 107/64 99 Room Air General Appearance: no apparent distress, + obese Neck: no JVD Respiratory: no respiratory distress, no accessory muscle use, + decreased breath sounds Cardiovascular: regular rate, rhythm, no edema, + normal peripheral pulses Abdomen: normal bowel sounds, soft, + pertinent finding (no grimacing on palpation) Neurologic/Psychiatric: oriented x 3, + pertinent finding (eyes closed, flat affect) Skin: normal color Laboratory Results Last 24 Hours Test 09/19/16 16:07 09/19/16 20:14 09/20/16 05:09 09/20/16 07:13 Bedside Glucose 138 mg/dl 181 mg/dl 104 mg/dl White Blood Count 10.78 K/uL Red Blood Count 4.28 M/uL Hemoglobin 12.6 g/dL Hematocrit 37.7 % Mean Corpuscular Volume 88.1 fL Mean Corpuscular Hemoglobin 29.4 pg Mean Corpuscular Hemoglobin Concent 33.4 g/dl RDW Standard Deviation 41.5 fL RDW Coefficient of Variation 12.9 % Platelet Count 175 K/uL Mean Platelet Volume 10.6 fL Sodium Level 142 mmol/L Potassium Level 3.7 mmol/L Chloride Level 104 mmol/L Carbon Dioxide Level 30 mmol/L Anion Gap 8.0 mmol/L Blood Urea Nitrogen 15 mg/dl Creatinine 1.20 mg/dl Est Creatinine Clear Calc Drug Dose 49.6 ml/min Estimated GFR () 55.7 Estimated GFR (Non- 48.1 BUN/Creatinine Ratio 12.7 Random Glucose 97 mg/dl Calcium Level 9.4 mg/dl Magnesium Level 1.9 mg/dl Test 09/20/16 11:22 Bedside Glucose 173 mg/dl Assessment & Plan Palliative Performance Scale: 40 % Problem list: Flat affect- depression Abdominal pain Constipation- now moving bowels Weakness/ambulatory dysfunction Decreased PO intake SABRINA on CKD Hx CAD s/p CABG DM Goals of care (Z51.5) Palliative care plan: -Patient wants to be DNR/DNI -Her goal is to go home with home health, caregivers, and family support -Not hospice appropriate at this time -Pain management consulted: has percocet 5/325 Q6h PRN and tylenol PRN. Has not had percocet since 09/18. Will defer management to them. -Constipation- GI consulted and recommended bowel regimen- currently on Mirilax BID and patient's RN reported that patient had 5 BMs today. -Further discussed tomorrow. I have a called out to patient's sister/POA, Sarah Worley. Awaiting call back. Thank you kindly for this consult. I will follow as needed. Addendum 1700: Spoke with patient's sister, Sarah, on the phone with patient's permission. Updated her on my conversation with patient and she agreed the plan to go home with home health, caregivers, and family support. Sarah stated that her and her family were going to come with a schedule and take shifts to be sure the patient has care 24hr/day. She did say that she would prefer the patient to go to [facility] first, but also said, "But it's whatever my sister wants. " She understands that if patient does not want to participate in therapy, she cannot be forced. Sarah is concerned that the patient's depression could be driving her decision making at this time, which I do not think is unreasonable to believe. If the patient should change her mind and wanted rehab, that's certainly an option.
[2016-09-20 19:30] VITALS: BP 101/64; PULSE 92; TEMP 37.3; O2SAT 96
[2016-09-20] MEDS: CLOPIDOGREL BISULFATE 75 MG TAB PO SCH (20:07)
[2016-09-20] MEDS: OXYCODONE/ACETAMINOPHEN 5-325 TAB PO PRN (20:07)
[2016-09-20] MEDS: hydrOXYzine HCL 25 MG TAB PO SCH (20:08)
[2016-09-21 00:08] VITALS: BP 115/73; PULSE 60; TEMP 36.7; O2SAT 97
[2016-09-21] MEDS: HEPARIN SOD 5000 UNIT/0.5 ML CARP SQ SCH ×3 (05:02→18:52)
[2016-09-21 08:02] VITALS: BP 110/73; PULSE 60; TEMP 36.9; O2SAT 99
[2016-09-21] MEDS: MAGNESIUM CHLORIDE 64MG DELAYED REL TAB PO SCH ×3 (08:26→21:05)
[2016-09-21] MEDS: ESCITALOPRAM OXALATE 10 MG TAB PO SCH (08:26)
[2016-09-21] MEDS: LACTOBACILLUS ACIDOPHILUS (FLORANEX) TAB PO SCH (08:26)
[2016-09-21] MEDS: PANTOprazole SOD 40 MG TAB PO SCH ×2 (08:27→21:05)
[2016-09-21] MEDS: ASPIRIN 81 MG ECTAB PO SCH (08:27)
[2016-09-21] MEDS: POLYETHYLENE (MIRALAX) 17 GM PACK PO SCH ×3 (08:27→21:04)
[2016-09-21] MEDS: CEROVITE ADV FORMULA TAB PO SCH (08:28)
[2016-09-21] MEDS: LISINOPRIL 5 MG TAB PO SCH (08:29)
[2016-09-21] MEDS: METOPROLOL TARTRATE 25 MG TAB PO SCH ×2 (08:29→21:04)
[2016-09-21] MEDS: ROSUVASTATIN CALCIUM 10 MG TAB PO SCH (08:30)
[2016-09-21] MEDS: ISOSORBIDE MONONITRATE 60 MG TABCR PO SCH (08:35)
[2016-09-21] MEDS: INSULIN ASPART 100 UNITS/ML 3 ML PEN SC SCH ×4 (08:41→21:14)
[2016-09-21] MEDS: INSULIN GLARGINE SOLOSTAR 100 UNITS/ML 3 ML PEN SC SCH ×2 (08:42→21:13)
--- NOTE | 2016-09-21 08:46 | Pharmacy Progress Note ---
Glycemic Control: Progress Nt Date of Service Sep 21, 2016. Scope Glycemic Pharmacist consulted by Yojana Arita on 09/17/16 for glycemic control and to write orders per [facility] inpatient glycemic control protocol. Objective Accuchecks BSG (last 24hrs): Test 09/20/16 11:22 09/20/16 16:49 09/20/16 20:31 09/21/16 07:56 Bedside Glucose 173 mg/dl (70-90) 148 mg/dl (70-90) 199 mg/dl (70-90) 89 mg/dl (70-90) Recent Pertinent Medications Outpatient Anti-diabetic Regimen: * Lantus 80 units SQ BID * NovoLog per scale with a max of 140u/day * A1c = 9.3 % 08/16/16 Current Inpatient Regimen: * Lantus 15-25 units SQ BID * based on BSGs * NovoLog SC AC and HS * correction factor: 30mg/dL/unit * carb ratio: 1 unit per 10 g of CHO consumed * goal range: 110-150mg/dL Risk Factors for Insulin Resistance: * Diet: T2DM/AHA/low fiber Assessment & Plan ASSESSMENT: 09/17/16 * 61yo T2DM female known to pharmacy from previous admissions/glycemic consults. A1c elevated above goal range but A1c has improved over the past year (12.2% in 08/2015 --> 9.3% in 08/1016) * Pt admitted with abdominal and back pain and will likely have reduced PO intake (currently NPO). * Last admission, outpatient basal insulin doses were cut in half and patient experienced a critical low. * Will base inpatient basal doses on weight and a stress of 2 - titrate based on fasting BSGs * ADA & AACE recommend a goal blood sugar range 140-180 mg/dl for the majority of critically ill & non-critically ill patients. However, more stringent targets may be selected in individual cases. * Lower goal range used for non-elderly patient 09/18/16 * BSGs above 300mg/dL last evening but dropped nicely with a fraction of the Lantus dose compared to home regimen. * Fasting BSG today is above goal, will slowly titrate basal insulin upwards with caution as Ms Pereyra does have a history of hypoglycemia in house * Unsure of NovoLog parameter efficacy at this time * continue same * add additional Accu-check at 02:00 in case of overnight hyperglycemia 09/21/16 * BSGs have begun to fall and Ms Pereyra has been requiring less insulin with each hospital day. * Today, Fasting BSG is below goal range (though euglycemic). In addition to this, her total insulin requirements are weighted quite heavily on the Lantus. * re-distribute basal/bolus insulin doses toward 50/50 ratio (decrease basal dosing). This will also complement the fasting BSG that is below goal range. * NovoLog parameters have been appropriately covering carbohydrates * no change at this time PLAN FOR INPATIENT GLYCEMIC CONTROL: * Lantus SQ BID * Give 5 units if BSG is below 120mg/dL * Give 10 units if BSG is 120-180mg/dL * Give 15 units if BSG is above 180mg/dL * NOVOLOG per scale ACHS or Q6hrs while NPO * Goal Range: Low 110 mg/dL - High 150 mg/dL * Correction Factor: 30 mg/dL/unit * Carb ratio of 1 unit per 10 grams CHO consumed * A1c is up to date * add to discharge instructions RECOMMENDATIONS FOR DISCHARGE: * awaited * Please note that the plan above was derived based on current level of insulin resistance and hospital stress. These recommendations are appropriate for inpatient admission only. Plan of care upon discharge will need to be reassessed to avoid potential outpatient hypo/hyperglycemia. Thank you.
--- NOTE | 2016-09-21 08:55 | Gastroenterology Progress Note ---
Progress Note Date of Service: Sep 21, 2016 Subjective Pt evaluation today including: conversation w/ patient, physical exam, chart review, lab review, review of studies, review of inpatient medication list Pt awake, up in bed, in middle of breakfast. She denies any abd pain, n/v. Continues to have multiple BMs yesterday. KUB yesterday showed persistent constipation. Cdiff and stool cx negative. Review of Systems Constitutional: No chills, No fever Respiratory: No shortness of breath Cardiac: No chest pain Abdomen: No nausea, No pain, No vomiting Medications Current Inpatient Medications Medications (Trade) Dose Ordered Sig/Tera Route Start Time Stop Time Status Last Admin Dose Admin Heparin Sodium (Porcine) (Heparin Sq 5000 Unit/0.5ml) 5,000 unit Q8H SQ 09/17/16 18:00 10/17/16 17:59 09/21/16 05:02 5,000 UNIT Acetaminophen (Tylenol Tab) 650 mg Q4H PRN PO 09/17/16 15:00 10/17/16 14:59 09/20/16 12:08 650 MG Ondansetron HCl (Zofran Inj) 4 mg Q6H PRN IV 09/17/16 15:00 10/17/16 14:59 Aspirin (Ecotrin Tab) 81 mg QAM PO 09/18/16 08:00 10/18/16 07:59 09/21/16 08:27 81 MG Bisacodyl (Dulcolax Supp) 10 mg Q7D@0900 PRN ID 09/17/16 15:30 10/17/16 15:29 Clopidogrel Bisulfate (plAVix TAB) 75 mg HS PO 09/17/16 22:00 10/17/16 21:59 09/20/16 20:07 75 MG Escitalopram Oxalate (Lexapro Tab) 15 mg QAM PO 09/18/16 08:00 10/18/16 07:59 09/21/16 08:26 15 MG Hydroxyzine HCl (Vistaril Tab) 12.5 mg HS PO 09/17/16 22:00 10/17/16 21:59 09/20/16 20:08 12.5 MG Isosorbide Mononitrate (Imdur Ext Rel Tab) 60 mg QAM PO 09/18/16 08:00 10/18/16 07:59 09/21/16 08:35 60 MG Lactobacillus Acidophilus (Floranex Tab) 1 tab DAILY PO 09/18/16 08:00 10/18/16 07:59 09/21/16 08:26 1 TAB Lisinopril (Zestril Tab) 10 mg QAM PO 09/18/16 08:00 10/18/16 07:59 09/21/16 08:29 10 MG Lorazepam (Ativan Tab) 0.5 mg TID PRN PO 09/17/16 15:30 10/17/16 15:29 Magnesium Chloride (Slow-Mag Tab) 64 mg TID PO 09/17/16 20:00 10/17/16 19:59 09/21/16 08:26 64 MG Metoprolol Tartrate (Lopressor Tab) 25 mg BID PO 09/17/16 20:00 10/17/16 19:59 09/21/16 08:29 25 MG Multivitamins/ Minerals (Multivitamin W/ Minerals Tab) 1 tab QAM PO 09/18/16 08:00 10/18/16 07:59 09/21/16 08:28 1 TAB Nitroglycerin (Nitrostat Tab) 0.4 mg UD PRN UT 09/17/16 15:30 10/17/16 15:29 Oxycodone/ Acetaminophen (Percocet 5-325mg Tab) 1 tab Q6H PRN PO 09/17/16 15:30 10/01/16 15:29 09/20/16 20:07 1 TAB Pantoprazole Sodium (Protonix Tab) 40 mg BID PO 09/17/16 20:00 10/17/16 19:59 09/21/16 08:27 40 MG Rosuvastatin Calcium (Crestor Tab) 10 mg QAM PO 09/18/16 08:00 10/18/16 07:59 09/21/16 08:30 10 MG Senna/Docusate Sodium (Senokot S Tab) 2 tab HS PO 09/17/16 22:00 10/17/16 21:59 Future Hold 09/18/16 20:51 2 TAB Miscellaneous Information (Order Awaiting Action) 1 ea QS N/A 09/17/16 16:00 10/17/16 15:59 Insulin Glargine (Lantus Solostar Pen) SEE PROTOCOL BID SC 09/17/16 20:00 10/17/16 19:59 09/21/16 08:42 5 UNIT Insulin Aspart (novoLOG ASPART) SLIDING SCALE If C... ACHS SC 09/17/16 16:30 10/17/16 16:29 09/21/16 08:41 3 UNITS Glucose (Glucose 40% Gel) 15-30 GRAMS 15 GRAMS... UD PRN PO 09/17/16 15:30 10/17/16 15:29 Glucose (Glucose Chew Tab) 4-8 Tablets 4 Tabl... UD PRN PO 09/17/16 15:30 10/17/16 15:29 Dextrose (Dextrose 50% 50ML Syringe) 25-50ML OF 50% DW IV FOR... UD PRN IV 09/17/16 15:30 10/17/16 15:29 Glucagon (Glucagon Inj) 1 mg UD PRN SQ 09/17/16 15:30 10/17/16 15:29 Miscellaneous Information (Consult Glycemic Management Pharmacy) 1 ea UD N/A 09/17/16 16:07 10/17/16 16:06 Albuterol (Ventolin Hfa Inhaler) 2 puffs Q4H PRN INH 09/17/16 17:30 10/17/16 15:29 Sodium Biphosphate/ Sodium Phosphate (Fleet Enema) 132 ml DAILY PRN ID 09/18/16 14:30 10/18/16 14:29 09/18/16 15:46 132 ML Polyethylene (Miralax Powder Packet) 17 gm TID PO 09/19/16 20:00 10/19/16 19:59 09/21/16 08:27 17 GM Objective Vital Signs Date Time Temp Pulse Resp B/P Pulse Ox O2 Delivery O2 Flow Rate FiO2 09/21/16 08:02 36.9 60 18 110/73 99 Room Air 09/21/16 00:10 Room Air 09/21/16 00:08 36.7 60 18 115/73 97 Room Air 09/20/16 20:00 Room Air 09/20/16 19:30 37.3 92 18 101/64 96 Room Air 09/20/16 16:09 Room Air 09/20/16 14:55 36.7 65 18 90/57 97 Room Air Physical Exam General Appearance: WD/WN, no apparent distress, + obese Eyes: normal inspection, PERRL, EOMI Neck: supple, no JVD, trachea midline Respiratory/Chest: no respiratory distress, no accessory muscle use, + decreased breath sounds Cardiovascular: regular rate, rhythm, no gallop, no murmur Abdomen: soft, + abnormal bowel sounds (hypoactive), + tenderness (mid R abd side) Neurologic/Psych: alert, + depressed affect Skin: normal color, no jaundice, no rash Laboratory Results Last 24 Hours Test 09/20/16 11:22 09/20/16 16:49 09/20/16 20:31 09/21/16 07:56 Bedside Glucose 173 mg/dl 148 mg/dl 199 mg/dl 89 mg/dl Assessment and Plan Pt is a 61 y/o female seen for abd pain suspected to be due to constipation (CT abd/pelvis evidence of constipation and rectosigmoid fecal impaction). She had multiple BMs yesterday w Miralax, Fleets enema. Recent Cdiff in 08/2016 but repeat study at this admission negative, stool cx negative as well. She currently reports abd pain improved, denies any nausea or vomiting. - Continue current bowel regimen - Continue Florastor. - Continue current diet. - GI will sign off; pls call if new questions or concerns arise. ATTESTATION: I have performed a history and physical examination of this patient and reviewed the electronic record. Specifically, on physical examination there is mild abdominal tenderness. I have discussed the case with PRITESH Richardson. The above note reflects my findings, conclusions, and recommendations. Tiago Meyer MD
--- NOTE | 2016-09-21 12:58 | Progress Note ---
Subjective Date of Service: Sep 21, 2016. Subjective Pt evaluation today including: conversation w/ patient, physical exam, lab review, review of studies, review of inpatient medication list Saw/examined the patient in room 453; she's feeling good today Upright and she is eating; talking much more, awake and alert No problems/issues to note Problem List Medical Problems: (1) Adrenal nodule Status: Acute (2) Altered mental status Status: Acute (3) Ambulatory dysfunction Status: Acute (4) Blood in stool Status: Acute (5) Cardiomegaly Status: Acute (6) Contusion of multiple sites Status: Acute (7) Dehydration Status: Acute (8) Dehydration Status: Acute (9) Fall Status: Acute (10) Hyperglycemia Status: Acute (11) Influenza-like symptoms Status: Acute Social History Problems: (1) Diabetes mellitus Status: Chronic Review of Systems Constitutional: + weakness, No chills, No fever Respiratory: No cough, No shortness of breath, No sputum Cardiac: No chest pain, No edema, No palpitations Abdomen: + pain (improving), No constipation, No diarrhea, No nausea, No vomiting Female : No dysuria, No urinary frequency Heme: No abnormal bleeding/bruising Medications Current Inpatient Medications Medications (Trade) Dose Ordered Sig/Tera Route Start Time Stop Time Status Last Admin Dose Admin Heparin Sodium (Porcine) (Heparin Sq 5000 Unit/0.5ml) 5,000 unit Q8H SQ 09/17/16 18:00 10/17/16 17:59 09/21/16 10:40 5,000 UNIT Acetaminophen (Tylenol Tab) 650 mg Q4H PRN PO 09/17/16 15:00 10/17/16 14:59 09/20/16 12:08 650 MG Ondansetron HCl (Zofran Inj) 4 mg Q6H PRN IV 09/17/16 15:00 10/17/16 14:59 Aspirin (Ecotrin Tab) 81 mg QAM PO 09/18/16 08:00 10/18/16 07:59 09/21/16 08:27 81 MG Bisacodyl (Dulcolax Supp) 10 mg Q7D@0900 PRN NE 09/17/16 15:30 10/17/16 15:29 Clopidogrel Bisulfate (plAVix TAB) 75 mg HS PO 09/17/16 22:00 10/17/16 21:59 09/20/16 20:07 75 MG Escitalopram Oxalate (Lexapro Tab) 15 mg QAM PO 09/18/16 08:00 10/18/16 07:59 09/21/16 08:26 15 MG Hydroxyzine HCl (Vistaril Tab) 12.5 mg HS PO 09/17/16 22:00 10/17/16 21:59 09/20/16 20:08 12.5 MG Isosorbide Mononitrate (Imdur Ext Rel Tab) 60 mg QAM PO 09/18/16 08:00 10/18/16 07:59 09/21/16 08:35 60 MG Lactobacillus Acidophilus (Floranex Tab) 1 tab DAILY PO 09/18/16 08:00 10/18/16 07:59 09/21/16 08:26 1 TAB Lisinopril (Zestril Tab) 10 mg QAM PO 09/18/16 08:00 10/18/16 07:59 09/21/16 08:29 10 MG Lorazepam (Ativan Tab) 0.5 mg TID PRN PO 09/17/16 15:30 10/17/16 15:29 Magnesium Chloride (Slow-Mag Tab) 64 mg TID PO 09/17/16 20:00 10/17/16 19:59 09/21/16 08:26 64 MG Metoprolol Tartrate (Lopressor Tab) 25 mg BID PO 09/17/16 20:00 10/17/16 19:59 09/21/16 08:29 25 MG Multivitamins/ Minerals (Multivitamin W/ Minerals Tab) 1 tab QAM PO 09/18/16 08:00 10/18/16 07:59 09/21/16 08:28 1 TAB Nitroglycerin (Nitrostat Tab) 0.4 mg UD PRN UT 09/17/16 15:30 10/17/16 15:29 Oxycodone/ Acetaminophen (Percocet 5-325mg Tab) 1 tab Q6H PRN PO 09/17/16 15:30 10/01/16 15:29 09/20/16 20:07 1 TAB Pantoprazole Sodium (Protonix Tab) 40 mg BID PO 09/17/16 20:00 10/17/16 19:59 09/21/16 08:27 40 MG Rosuvastatin Calcium (Crestor Tab) 10 mg QAM PO 09/18/16 08:00 10/18/16 07:59 09/21/16 08:30 10 MG Senna/Docusate Sodium (Senokot S Tab) 2 tab HS PO 09/17/16 22:00 10/17/16 21:59 Future Hold 09/18/16 20:51 2 TAB Miscellaneous Information (Order Awaiting Action) 1 ea QS N/A 09/17/16 16:00 10/17/16 15:59 Insulin Glargine (Lantus Solostar Pen) SEE PROTOCOL BID SC 09/17/16 20:00 10/17/16 19:59 09/21/16 08:42 5 UNIT Insulin Aspart (novoLOG ASPART) SLIDING SCALE If C... ACHS SC 09/17/16 16:30 10/17/16 16:29 09/21/16 12:33 10 UNITS Glucose (Glucose 40% Gel) 15-30 GRAMS 15 GRAMS... UD PRN PO 09/17/16 15:30 10/17/16 15:29 Glucose (Glucose Chew Tab) 4-8 Tablets 4 Tabl... UD PRN PO 09/17/16 15:30 10/17/16 15:29 Dextrose (Dextrose 50% 50ML Syringe) 25-50ML OF 50% DW IV FOR... UD PRN IV 09/17/16 15:30 10/17/16 15:29 Glucagon (Glucagon Inj) 1 mg UD PRN SQ 09/17/16 15:30 10/17/16 15:29 Miscellaneous Information (Consult Glycemic Management Pharmacy) 1 ea UD N/A 09/17/16 16:07 10/17/16 16:06 Albuterol (Ventolin Hfa Inhaler) 2 puffs Q4H PRN INH 09/17/16 17:30 10/17/16 15:29 Sodium Biphosphate/ Sodium Phosphate (Fleet Enema) 132 ml DAILY PRN NE 09/18/16 14:30 10/18/16 14:29 09/18/16 15:46 132 ML Polyethylene (Miralax Powder Packet) 17 gm TID PO 09/19/16 20:00 10/19/16 19:59 09/21/16 08:27 17 GM Objective Vital Signs Date Time Temp Pulse Resp B/P Pulse Ox O2 Delivery O2 Flow Rate FiO2 09/21/16 08:05 Room Air 09/21/16 08:02 36.9 60 18 110/73 99 Room Air 09/21/16 00:10 Room Air 09/21/16 00:08 36.7 60 18 115/73 97 Room Air 09/20/16 20:00 Room Air 09/20/16 19:30 37.3 92 18 101/64 96 Room Air 09/20/16 16:09 Room Air 09/20/16 14:55 36.7 65 18 90/57 97 Room Air Physical Exam General Appearance: no apparent distress Respiratory/Chest: lungs clear, normal breath sounds, no respiratory distress, no accessory muscle use Cardiovascular: regular rate, rhythm, no edema, no murmur Abdomen: normal bowel sounds, non tender, soft Extremities: normal inspection, no pedal edema Neurologic/Psychiatric: no motor/sensory deficits, alert, normal mood/affect Laboratory Results Last 24 Hours Test 09/20/16 16:49 09/20/16 20:31 09/21/16 07:56 09/21/16 11:29 Bedside Glucose 148 mg/dl 199 mg/dl 89 mg/dl 187 mg/dl Assessment and Plan This is a 61 year old female with PMH of uncontrolled diabetes mellitus, requiring insulin with multiple complications including neuropathy and nephropathy, chronic kidney disease stage III, hx. of CAD s/p CABG and PCI/stent , hx. of ventricular fibrillation s/p implantable cardioverter/defibrillator, HTN, HLD, diastolic CHF, severe SACHA not on CPAP Generalized Abdominal Pain possibly Colitis 09/21 appreciate GI input bowel regimen + Florastor pain improved, no nausea/vomiting good PO intake 09/20 C. diff negative stool cultures pending continue PPI hold off on enema appreciate GI input she is now tolerating diet 09/19 appreciate GI input continue bowel regimen this morning, question of diarrhea will hold senna/colace continue PPI no plans for EGD at this time 09/18 was admitted last month to [facility] for the flu at that time, found to have C. diff, which was treated patient felt better at that time and was sent to Rehab niece is with her in the room and explains that they want to take her home after w/up is complete Dr. Ramirez, patient's primary - would like patient to have EGD - GI consulted bowel regimen and fleet enema PRN for constipation Flat Affect in the setting of Depression 10/22 continue Lexapro outpatient psych follow-up 09/20 psychomotor +depression on Lexapro 15mg possibly related to marijuana use? she is more awake/alert today 09/19 continue current depression/anxiety medications psych consultation pending 09/18 patient states that depression seems to be under control She is reserved and difficult to get to answer questions continue Lexapro for now will consult psych for any other recommendations Acute Kidney Injury superimposed on CKD stage 3 creat from 1.4 down to 1.1 seems to be back to baseline, encouraged PO intake Adrenal Incidentaloma CT shows an adrenal cyst would recommend outpatient lab work to check if it is functioning if we need to remove this - will have to f/u at [place] or tertiary center, as per general surgery here Insulin Dependent DM2, uncontrolled Ha1c in August 2016 > 9.0% appreciate glycemic control consult novolog sliding scale Lantus is also on a sliding scale to prevent hypoglycemia CAD s/p CABG and PCI continue current cardiac medications - aspirin, Plavix, b-clyde, TAMARA-I, statin , Imdur Hx. of V. Fib s/p ICD DVT ppx subq heparin FULL CODE family wanted to speak with palliative care nurse - home with home hospice is what they wanted - she may not qualify for this d/c with home health in 1-2 days
--- NOTE | 2016-09-21 13:03 | Discharge Instructions ---
Discharge Instructions Date of Service Sep 21, 2016. Admission Reason for Admission: Refractory Abdominal And Back Pain, Weakness Discharge Discharge Diagnosis / Problem: Abdominal Pain, generalized - likely constipation related Discharge Goals Goal(s): Decrease discomfort, Improve function Activity Recommendations Activity Limitations: resume your previous activity . Instructions / Follow-Up Instructions / Follow-Up Please follow-up with Dr. Ramirez on September 24 @ 11:10AM The dose of Lantus has been significantly reduced as outpatient to Lantus 20 units BID Please check blood sugar levels and adjust accordingly Please follow-up with psychiatry as an outpatient You will be sent home with home health Current Hospital Diet Patient's current hospital diet: AHA Diet (Heart Healthy), Diabetes Type 2 Diet , Low Fiber Diet Discharge Diet Recommended Diet: AHA Diet (Heart Healthy), Diabetes Type 2 Diet, Low Fiber Diet Pending Studies Studies pending at discharge: no Laboratory Results Hemoglobin A1c Test 08/16/16 05:51 Range/Units Estimated Average Glucose 220 mg/dl Hemoglobin A1c 9.3 H 4.5-5.6 % Medical Emergencies . Who to Call and When: Medical Emergencies: If at any time you feel your situation is an emergency, please call 911 immediately. . Non-Emergent Contact Non-Emergency issues call your: Primary Care Provider . . "Provider Documentation" section prepared by Caryn Baptiste. VTE Core Measure Inpt VTE Proph given/why not?: Unfractionated heparin SQ
--- NOTE | 2016-09-21 13:05 | Discharge Summary ---
Discharge Summary Date of Service Sep 21, 2016. Discharge Summary Admission Date: Sep 17, 2016 at 14:03 Discharge Date: Sep 21, 2016 Discharge Disposition: Home with services Principal Diagnosis: Generalized Abdominal Pain Depression Medication Reconciliation Changed Medications: Insulin Glargine (Lantus Solostar) 100 Unit/Ml Inj 20 UNITS SC AMPM for 30 Days, #1 PEN (Changed from: 80 UNITS) Continued Medications: Albuterol Sulfate (Proair Respiclick) 108 Mcg/Act Aer 2 PUFFS INH Q4H PRN for Wheezing Aspirin (Aspirin Ec) 81 Mg Tab 81 MG PO QAM Bisacodyl (Dulcolax) 10 Mg Sup 1 SUPP KS WK PRN for Constipation, SUP Calcium Carbonate-Cholecalcife (Caltrate 600+D) 1 Tab Tab 1 TABLET PO BID Clopidogrel Bisulfate (Plavix) 75 Mg Tab 75 MG PO HS Difluprednate (Durezol) 0.05 % Emu 1 DOSE DIRECTED Escitalopram Oxalate (Lexapro) 10 Mg Tab 15 MG PO QAM, TAB Guaifenesin Ext Rel (Mucinex Ext Rel) 600 Mg Tab 600 MG PO Q12 PRN for Nasal Congestion, TAB Hydroxyzine Hcl (Atarax) 25 Mg Tab 12.5 MG PO HS, TAB May increase to 25 mg as tolerated Insulin Aspart (Novolog Flexpen) 100 Units/Ml Inj 1 DOSE SC SLIDING SCALE MAX OF 140 UNITS DAILY Isosorbide Mononitrate (Imdur Ext Rel) 60 Mg Tab 60 MG PO QAM, TAB Ketoconazole (Topical) (Ketoconazole) 2 % Sha 1 APPLN TOP DAILY Lactobacillus (Floranex) 1 Tab Tab 1 TAB PO DAILY Lisinopril (Prinivil) 5 Mg Tab 10 MG PO QAM for 30 Days, #60 TABS Lorazepam (Ativan) 0.5 Mg Tab 0.5 MG PO TID PRN for Anxiety, TAB Magnesium Chloride (Slow-Mag Tab) 64 Mg Tabcr 64 MG PO TID, 0 Refills Metoprolol Tartrate (Lopressor) (Lopressor) 25 Mg Tab 25 MG PO BID, 0 Refills Multivitamins/Minerals (Mvi With Minerals) Tab 1 TABLET PO QAM, TAB Nitroglycerin (Nitrostat) 0.4 Mg Tab 0.4 MG UT UD PRN for Chest Pain, 0 Refills Oxycodone/Acetaminophen 5MG/325MG (Oxycodone/Acetaminophen 5MG/325MG) 1 Tab Tab 1 TABLET PO Q6H PRN for Pain, TAB Pantoprazole (Protonix) 40 Mg Tab 40 MG PO BID, 0 Refills Polyethylene Glycol 3350 (Miralax) 1 Pow Pow 17 MG PO BID Rosuvastatin Calcium (Crestor) 10 Mg Tab 10 MG PO QAM Sennosides-Docusate Sodium (Senna Plus) 1 Tab Tab 2 TAB PO HS Admission Information HPI (per Admitting provider): Patient seen and examined. 61 year old female with PMHx of IDDM, CAD s/p CABG, HTN, HLD, diastolic CHF, h/o Vtach s/p ICD, GERD, CKD stage 3, and other problems listed below presents as a direct admission from Dr. Ramirez's office for intractable back pain, abdominal pain and ambulatory dysfunction for many weeks. Patient was admitted from 08/15-08/17 from [facility]. She was treated with metronidazole and discharged to [facility] d/t her deconditioned state. Apparently since then the patient has been too weak to walk. Prior to admission on 08/15 patient was ambulating with a walker with little difficulty. Since then she takes multiple assistants to walk and has been mostly in a wheel chair. She reports diffuse back pain which she states is "on the inside," she denies falls or injuries. She also reports diffuse sharp abdominal pain for 3-4 days. She reports she has not been eating well and is losing weight. She denies fevers, chills, numbness, tingling, falls, injuries, chest pain, SOB, nausea, vomiting, dysuria, calf pain and edema. She reports she is still having some diarrhea. Patient will be admitted for further workup and treatment. Physical Exam (per Admitting): General Appearance: + pertinent finding (WD/WN 61 year old female lying in bed in NAD with family at bedside ) Head: normocephalic, atraumatic Eyes: PERRL, sclerae normal ENT: hearing grossly normal, pharynx normal Neck: supple, no JVD Respiratory/Chest: chest non-tender, lungs clear, normal breath sounds, no respiratory distress, no accessory muscle use Cardiovascular: regular rate, rhythm, no edema, no gallop, no JVD, normal peripheral pulses, + systolic murmur Abdomen/GI: normal bowel sounds, soft, + tenderness (suprapubic ) Back: normal inspection, no muscle spasm Extremities/Musculoskelatal: no calf tenderness, normal capillary refill, no pedal edema Neurologic/Psych: alert, oriented x 3, + pertinent finding (blunted-flat affect. Moves all extremities appropriately against gravity, sensation intact. ) Skin: normal color, warm/dry, no rash Lymphatic: no adenopathy Hospital Course This is a 61 year old female with PMH of uncontrolled diabetes mellitus, requiring insulin with multiple complications including neuropathy and nephropathy, chronic kidney disease stage III, hx. of CAD s/p CABG and PCI/stent , hx. of ventricular fibrillation s/p implantable cardioverter/defibrillator, HTN, HLD, diastolic CHF, severe SACHA not on CPAP Generalized Abdominal Pain possibly Colitis 09/21 appreciate GI input bowel regimen + Florastor pain improved, no nausea/vomiting good PO intake 09/20 C. diff negative stool cultures pending continue PPI hold off on enema appreciate GI input she is now tolerating diet 09/19 appreciate GI input continue bowel regimen this morning, question of diarrhea will hold senna/colace continue PPI no plans for EGD at this time 09/18 was admitted last month to [facility] for the flu at that time, found to have C. diff, which was treated patient felt better at that time and was sent to Rehab niece is with her in the room and explains that they want to take her home after w/up is complete Dr. Ramirez, patient's primary - would like patient to have EGD - GI consulted bowel regimen and fleet enema PRN for constipation Flat Affect in the setting of Depression 10/22 continue Lexapro outpatient psych follow-up 09/20 psychomotor +depression on Lexapro 15mg possibly related to marijuana use? she is more awake/alert today 09/19 continue current depression/anxiety medications psych consultation pending 09/18 patient states that depression seems to be under control She is reserved and difficult to get to answer questions continue Lexapro for now will consult psych for any other recommendations Acute Kidney Injury superimposed on CKD stage 3 creat from 1.4 down to 1.1 seems to be back to baseline, encouraged PO intake Adrenal Incidentaloma CT shows an adrenal cyst would recommend outpatient lab work to check if it is functioning if we need to remove this - will have to f/u at [place] or tertiary center, as per general surgery here Insulin Dependent DM2, uncontrolled Ha1c in August 2016 > 9.0% appreciate glycemic control consult novolog sliding scale Lantus is also on a sliding scale to prevent hypoglycemia CAD s/p CABG and PCI continue current cardiac medications - aspirin, Plavix, b-clyde, TAMARA-I, statin , Imdur Hx. of V. Fib s/p ICD DVT ppx subq heparin FULL CODE family wanted to speak with palliative care nurse - home with home hospice is what they wanted - she may not qualify for this d/c with home health in 1-2 days Total time spent on discharge = 35 minutes This includes examination of the patient, discharge planning, medication reconciliation, and communication with other providers. Discharge Instructions Please follow-up with Dr. Ramirez on September 24 @ 11:10AM The dose of Lantus has been significantly reduced as outpatient to Lantus 20 units BID Please check blood sugar levels and adjust accordingly Please follow-up with psychiatry as an outpatient You will be sent home with [facility]
[2016-09-21 15:56] VITALS: BP 112/72; PULSE 64; TEMP 37; O2SAT 97
[2016-09-21] MEDS: OXYCODONE/ACETAMINOPHEN 5-325 TAB PO PRN (16:47)
[2016-09-21] MEDS ORDERED: HYDROCORTISONE HC 2.5% CRM 30GM TUBE EXT PRN (17:15)
[2016-09-21] MEDS: CLOPIDOGREL BISULFATE 75 MG TAB PO SCH (21:15)
[2016-09-21] MEDS: hydrOXYzine HCL 25 MG TAB PO SCH (21:15)
[2016-09-22 00:01] VITALS: BP 138/79; PULSE 63; TEMP 37; O2SAT 97
[2016-09-22] MEDS: HEPARIN SOD 5000 UNIT/0.5 ML CARP SQ SCH ×3 (01:44→17:30)
[2016-09-22] MEDS: ESCITALOPRAM OXALATE 10 MG TAB PO SCH (07:19)
[2016-09-22] MEDS: ISOSORBIDE MONONITRATE 60 MG TABCR PO SCH (07:19)
[2016-09-22] MEDS: LACTOBACILLUS ACIDOPHILUS (FLORANEX) TAB PO SCH (07:20)
[2016-09-22] MEDS: PANTOprazole SOD 40 MG TAB PO SCH ×2 (07:20→21:48)
[2016-09-22] MEDS: ASPIRIN 81 MG ECTAB PO SCH (07:20)
[2016-09-22] MEDS: METOPROLOL TARTRATE 25 MG TAB PO SCH ×2 (07:20→21:47)
[2016-09-22] MEDS: CEROVITE ADV FORMULA TAB PO SCH (07:20)
[2016-09-22] MEDS: MAGNESIUM CHLORIDE 64MG DELAYED REL TAB PO SCH ×3 (07:20→21:49)
[2016-09-22] MEDS: LISINOPRIL 5 MG TAB PO SCH (07:20)
[2016-09-22] MEDS: POLYETHYLENE (MIRALAX) 17 GM PACK PO SCH ×3 (07:20→21:47)
[2016-09-22] MEDS: ROSUVASTATIN CALCIUM 10 MG TAB PO SCH (07:20)
[2016-09-22 07:25] VITALS: BP_SYST 123; BP_SYST 96; BP_DIAS 62; BP_DIAS 76; PULSE 60; TEMP 36.8; O2SAT 97
[2016-09-22] MEDS: INSULIN GLARGINE SOLOSTAR 100 UNITS/ML 3 ML PEN SC SCH ×2 (08:28→21:53)
[2016-09-22] MEDS: INSULIN ASPART 100 UNITS/ML 3 ML PEN SC SCH ×4 (08:29→21:55)
--- NOTE | 2016-09-22 11:16 | Psychiatric Progress Notes ---
Psychiatric Progress Note Date of Service Sep 22, 2016. Notes ID: Patient reviewed with liaison nurse. Interim progress reviewed. Discharge appears to be pending. CC: "I'm fine" HPI: patient appears a bit tired this am, denies complaints re: anxiety or depression, hasn't required any prn Ativan. ROS: denies physical complaints at this time MSE: affect somewhat blunted, thoughts concrete, no SI/HI/gomez Imp: as per initial consult Plan: patient declines additional med changes, desires PCP follow psych med
[2016-09-22 15:18] VITALS: BP 125/80; PULSE 60; TEMP 37; O2SAT 95
--- NOTE | 2016-09-22 15:18 | Progress Note ---
Subjective Date of Service: Sep 22, 2016. Subjective Pt evaluation today including: conversation w/ patient, physical exam, lab review, review of studies, review of inpatient medication list Saw/examined the patient in room 453 discharge canceled yesterday due to no support at home until September 23 patient feels much better, improved she is more awake/alert, blunted affect, but improving Problem List Medical Problems: (1) Adrenal nodule Status: Acute (2) Altered mental status Status: Acute (3) Ambulatory dysfunction Status: Acute (4) Blood in stool Status: Acute (5) Cardiomegaly Status: Acute (6) Contusion of multiple sites Status: Acute (7) Dehydration Status: Acute (8) Dehydration Status: Acute (9) Fall Status: Acute (10) Hyperglycemia Status: Acute (11) Influenza-like symptoms Status: Acute Social History Problems: (1) Diabetes mellitus Status: Chronic Review of Systems Constitutional: + weakness Respiratory: No shortness of breath Cardiac: No chest pain Abdomen: No diarrhea, No nausea, No pain (resolved), No vomiting Medications Current Inpatient Medications Medications (Trade) Dose Ordered Sig/Tera Route Start Time Stop Time Status Last Admin Dose Admin Heparin Sodium (Porcine) (Heparin Sq 5000 Unit/0.5ml) 5,000 unit Q8H SQ 09/17/16 18:00 10/17/16 17:59 09/22/16 10:43 5,000 UNIT Acetaminophen (Tylenol Tab) 650 mg Q4H PRN PO 09/17/16 15:00 10/17/16 14:59 09/20/16 12:08 650 MG Ondansetron HCl (Zofran Inj) 4 mg Q6H PRN IV 09/17/16 15:00 10/17/16 14:59 Aspirin (Ecotrin Tab) 81 mg QAM PO 09/18/16 08:00 10/18/16 07:59 09/22/16 07:20 81 MG Bisacodyl (Dulcolax Supp) 10 mg Q7D@0900 PRN [place] 09/17/16 15:30 10/17/16 15:29 Clopidogrel Bisulfate (plAVix TAB) 75 mg HS PO 09/17/16 22:00 10/17/16 21:59 09/21/16 21:15 75 MG Escitalopram Oxalate (Lexapro Tab) 15 mg QAM PO 09/18/16 08:00 10/18/16 07:59 09/22/16 07:19 15 MG Hydroxyzine HCl (Vistaril Tab) 12.5 mg HS PO 09/17/16 22:00 10/17/16 21:59 09/21/16 21:15 12.5 MG Isosorbide Mononitrate (Imdur Ext Rel Tab) 60 mg QAM PO 09/18/16 08:00 10/18/16 07:59 09/22/16 07:19 60 MG Lactobacillus Acidophilus (Floranex Tab) 1 tab DAILY PO 09/18/16 08:00 10/18/16 07:59 09/22/16 07:20 1 TAB Lisinopril (Zestril Tab) 10 mg QAM PO 09/18/16 08:00 10/18/16 07:59 09/22/16 07:20 10 MG Lorazepam (Ativan Tab) 0.5 mg TID PRN PO 09/17/16 15:30 10/17/16 15:29 Magnesium Chloride (Slow-Mag Tab) 64 mg TID PO 09/17/16 20:00 10/17/16 19:59 09/22/16 14:02 64 MG Metoprolol Tartrate (Lopressor Tab) 25 mg BID PO 09/17/16 20:00 10/17/16 19:59 09/22/16 07:20 25 MG Multivitamins/ Minerals (Multivitamin W/ Minerals Tab) 1 tab QAM PO 09/18/16 08:00 10/18/16 07:59 09/22/16 07:20 1 TAB Nitroglycerin (Nitrostat Tab) 0.4 mg UD PRN [place] 09/17/16 15:30 10/17/16 15:29 Oxycodone/ Acetaminophen (Percocet 5-325mg Tab) 1 tab Q6H PRN PO 09/17/16 15:30 10/01/16 15:29 09/21/16 16:47 1 TAB Pantoprazole Sodium (Protonix Tab) 40 mg BID PO 09/17/16 20:00 10/17/16 19:59 09/22/16 07:20 40 MG Rosuvastatin Calcium (Crestor Tab) 10 mg QAM PO 09/18/16 08:00 10/18/16 07:59 09/22/16 07:20 10 MG Senna/Docusate Sodium (Senokot S Tab) 2 tab HS PO 09/17/16 22:00 10/17/16 21:59 Future Hold 09/18/16 20:51 2 TAB Miscellaneous Information (Order Awaiting Action) 1 ea QS N/A 09/17/16 16:00 10/17/16 15:59 Insulin Glargine (Lantus Solostar Pen) SEE PROTOCOL BID SC 09/17/16 20:00 10/17/16 19:59 09/22/16 08:28 5 UNIT Insulin Aspart (novoLOG ASPART) SLIDING SCALE If C... ACHS SC 09/17/16 16:30 10/17/16 16:29 09/22/16 12:41 3 UNITS Glucose (Glucose 40% Gel) 15-30 GRAMS 15 GRAMS... UD PRN PO 09/17/16 15:30 10/17/16 15:29 Glucose (Glucose Chew Tab) 4-8 Tablets 4 Tabl... UD PRN PO 09/17/16 15:30 10/17/16 15:29 Dextrose (Dextrose 50% 50ML Syringe) 25-50ML OF 50% DW IV FOR... UD PRN IV 09/17/16 15:30 10/17/16 15:29 Glucagon (Glucagon Inj) 1 mg UD PRN SQ 09/17/16 15:30 10/17/16 15:29 Miscellaneous Information (Consult Glycemic Management Pharmacy) 1 ea UD N/A 09/17/16 16:07 10/17/16 16:06 Albuterol (Ventolin Hfa Inhaler) 2 puffs Q4H PRN INH 09/17/16 17:30 10/17/16 15:29 Sodium Biphosphate/ Sodium Phosphate (Fleet Enema) 132 ml DAILY PRN [place] 09/18/16 14:30 10/18/16 14:29 09/18/16 15:46 132 ML Polyethylene (Miralax Powder Packet) 17 gm TID PO 09/19/16 20:00 10/19/16 19:59 09/22/16 14:02 17 GM Hydrocortisone (Proctozone Hc 2.5% Crm) 1 appln BID PRN EXT 09/21/16 17:15 10/21/16 17:14 09/21/16 18:51 1 APPLN Objective Vital Signs Date Time Temp Pulse Resp B/P Pulse Ox O2 Delivery O2 Flow Rate FiO2 09/22/16 08:00 Room Air 09/22/16 07:25 36.8 60 18 123/76 97 09/22/16 00:01 37.0 63 16 138/79 97 Room Air 09/22/16 00:00 Room Air 09/21/16 16:00 Room Air 09/21/16 15:56 37.0 64 18 112/72 97 Physical Exam General Appearance: no apparent distress Respiratory/Chest: lungs clear, normal breath sounds, no respiratory distress, no accessory muscle use Cardiovascular: regular rate, rhythm, no edema, no murmur Abdomen: normal bowel sounds, non tender, soft Neurologic/Psychiatric: no motor/sensory deficits, alert, normal mood/affect Laboratory Results Last 24 Hours Test 09/21/16 16:34 09/21/16 19:59 09/22/16 07:35 09/22/16 11:26 Bedside Glucose 255 mg/dl 249 mg/dl 111 mg/dl 177 mg/dl Assessment and Plan This is a 61 year old female with PMH of uncontrolled diabetes mellitus, requiring insulin with multiple complications including neuropathy and nephropathy, chronic kidney disease stage III, hx. of CAD s/p CABG and PCI/stent , hx. of ventricular fibrillation s/p implantable cardioverter/defibrillator, HTN, HLD, diastolic CHF, severe SACHA not on CPAP Generalized Abdominal Pain possibly Colitis 09/22 for the most part, this has resolved she is tolerating PO intake 09/21 appreciate GI input bowel regimen + Florastor pain improved, no nausea/vomiting good PO intake 09/20 C. diff negative stool cultures pending continue PPI hold off on enema appreciate GI input she is now tolerating diet 09/19 appreciate GI input continue bowel regimen this morning, question of diarrhea will hold senna/colace continue PPI no plans for EGD at this time 09/18 was admitted last month to [facility] for the flu at that time, found to have C. diff, which was treated patient felt better at that time and was sent to Rehab niece is with her in the room and explains that they want to take her home after w/up is complete Dr. Ramirez, patient's primary - would like patient to have EGD - GI consulted bowel regimen and fleet enema PRN for constipation Flat Affect in the setting of Depression 09/22 continue current medications outpatient psych follow-up 09/21 continue Lexapro outpatient psych follow-up 09/20 psychomotor +depression on Lexapro 15mg possibly related to marijuana use? she is more awake/alert today 09/19 continue current depression/anxiety medications psych consultation pending 09/18 patient states that depression seems to be under control She is reserved and difficult to get to answer questions continue Lexapro for now will consult psych for any other recommendations Acute Kidney Injury superimposed on CKD stage 3 creat from 1.4 down to 1.1 seems to be back to baseline, encouraged PO intake Adrenal Incidentaloma CT shows an adrenal cyst would recommend outpatient lab work to check if it is functioning if we need to remove this - will have to f/u at [place] or tertiary center, as per general surgery here Insulin Dependent DM2, uncontrolled Ha1c in August 2016 > 9.0% appreciate glycemic control consult novolog sliding scale Lantus is also on a sliding scale to prevent hypoglycemia CAD s/p CABG and PCI continue current cardiac medications - aspirin, Plavix, b-clyde, TAMARA-I, statin , Imdur Hx. of V. Fib s/p ICD DVT ppx subq heparin FULL CODE family wanted to speak with palliative care nurse - home with home hospice is what they wanted - she may not qualify for this d/c with home health in 1-2 days
[2016-09-22] MEDS: hydrOXYzine HCL 25 MG TAB PO SCH (21:49)
[2016-09-22] MEDS: CLOPIDOGREL BISULFATE 75 MG TAB PO SCH (21:49)
[2016-09-22 22:54] VITALS: BP 142/83; PULSE 69; TEMP 37.1; O2SAT 99
[2016-09-23] MEDS: HEPARIN SOD 5000 UNIT/0.5 ML CARP SQ SCH (01:28)
[2016-09-23] MEDS: OXYCODONE/ACETAMINOPHEN 5-325 TAB PO PRN (06:28)
[2016-09-23 07:15] VITALS: BP 144/77; PULSE 59; TEMP 37; O2SAT 96
[2016-09-23 07:47] VITALS: PULSE 64
[2016-09-23] MEDS: CEROVITE ADV FORMULA TAB PO SCH (07:50)
[2016-09-23] MEDS: ASPIRIN 81 MG ECTAB PO SCH (07:50)
[2016-09-23] MEDS: MAGNESIUM CHLORIDE 64MG DELAYED REL TAB PO SCH (07:50)
[2016-09-23] MEDS: LISINOPRIL 5 MG TAB PO SCH (07:50)
[2016-09-23] MEDS: LACTOBACILLUS ACIDOPHILUS (FLORANEX) TAB PO SCH (07:50)
[2016-09-23] MEDS: ESCITALOPRAM OXALATE 10 MG TAB PO SCH (07:50)
[2016-09-23] MEDS: ISOSORBIDE MONONITRATE 60 MG TABCR PO SCH (07:50)
[2016-09-23] MEDS: METOPROLOL TARTRATE 25 MG TAB PO SCH (07:50)
[2016-09-23] MEDS: PANTOprazole SOD 40 MG TAB PO SCH (07:50)
[2016-09-23] MEDS: ROSUVASTATIN CALCIUM 10 MG TAB PO SCH (07:51)
[2016-09-23] MEDS: POLYETHYLENE (MIRALAX) 17 GM PACK PO SCH (07:51)
[2016-09-23] MEDS: INSULIN ASPART 100 UNITS/ML 3 ML PEN SC SCH (08:33)
[2016-09-23] MEDS: INSULIN GLARGINE SOLOSTAR 100 UNITS/ML 3 ML PEN SC SCH (08:33)
--- NOTE | 2016-09-23 08:39 | Pharmacy Progress Note ---
Glycemic Control: Progress Nt Date of Service Sep 23, 2016. Scope Glycemic Pharmacist consulted by Yojana Arita PA-C on 09/17/16 for glycemic control and to write orders per [facility] inpatient glycemic control protocol. Objective Accuchecks BSG (last 24hrs): Test 09/22/16 11:26 09/22/16 16:36 09/22/16 20:19 09/23/16 07:40 Bedside Glucose 177 mg/dl (70-90) 153 mg/dl (70-90) 202 mg/dl (70-90) 206 mg/dl (70-90) Recent Pertinent Medications Outpatient Anti-diabetic Regimen: * Lantus 80 units BID * Novololg (140units/day) * A1c = 9.3 % 08/16/16 The patient is currently receiving: * Basal insulin: Lantus 5-20 units every 12 hours based on BSG: * Give 5 units if BSG is below 120mg/dL * Give 15 units if BSG is 120-180mg/dL * Give 20 units if BSG is above 180mg/dL * Correctional Insulin: Novolog Correction per scale ACHS Goal Range: Low 110 mg/dL - High 150 mg/dL Correction Factor: 30 mg/dL/unit * Prandial insulin: Per carb ratio of 1 unit per 10 grams CHO consumed Risk Factors for Insulin Resistance: * Diet: Type 2 DM/ AHA/Low Fiber Assessment & Plan ASSESSMENT: * Patient ready for discharge today, patient has been requiring MUCH LOWER doses of insulin inpatient than outpatient - patient only had 41 units of insulin yesterday with most BSGs in range. * SEE DISCHARGE RECS BELOW PLAN FOR INPATIENT GLYCEMIC CONTROL: * Lantus SQ BID * Give 5 units if BSG is below 120mg/dL * Give 15 units if BSG is 120-180mg/dL * Give 20 units if BSG is above 180mg/dL * Correctional Insulin with NOVOLOG per scale ACHS or Q6hrs while NPO * Goal Range: Low 110 mg/dL - High 150 mg/dL * Correction Factor: 30 mg/dL/unit * Nutritional / Prandial insulin per carb ratio of 1 unit per 10 grams CHO consumed RECOMMENDATIONS FOR DISCHARGE: * Reduce Lantus to 20 units SQ BID * Continue Novolog sliding scale as at home * Follow-up with outpatient diabetes provider to adjust insulin dosing to prevent hypoglycemia * Please note that the plan above was derived based on current level of insulin resistance and hospital stress. These recommendations are appropriate for inpatient admission only. Plan of care upon discharge will need to be reassessed to avoid potential outpatient hypo/hyperglycemia. Thank you.
--- NOTE | 2016-09-23 08:47 | Progress Note ---
Subjective Date of Service: Sep 23, 2016. Subjective Pt evaluation today including: conversation w/ patient, physical exam, lab review, review of studies, review of inpatient medication list Saw/examined the patient in room 453 she is more alert and awake, tolerated breakfast No other complaints at this time Problem List Medical Problems: (1) Adrenal nodule Status: Acute (2) Altered mental status Status: Acute (3) Ambulatory dysfunction Status: Acute (4) Blood in stool Status: Acute (5) Cardiomegaly Status: Acute (6) Contusion of multiple sites Status: Acute (7) Dehydration Status: Acute (8) Dehydration Status: Acute (9) Fall Status: Acute (10) Hyperglycemia Status: Acute (11) Influenza-like symptoms Status: Acute Social History Problems: (1) Diabetes mellitus Status: Chronic Review of Systems Constitutional: + weakness Respiratory: No shortness of breath Cardiac: No chest pain Abdomen: No diarrhea, No nausea, No pain, No vomiting Psychiatric: + depression symptoms (improved with medications) Medications Current Inpatient Medications Medications (Trade) Dose Ordered Sig/Tera Route Start Time Stop Time Status Last Admin Dose Admin Heparin Sodium (Porcine) (Heparin Sq 5000 Unit/0.5ml) 5,000 unit Q8H SQ 09/17/16 18:00 10/17/16 17:59 09/22/16 17:30 5,000 UNIT Acetaminophen (Tylenol Tab) 650 mg Q4H PRN PO 09/17/16 15:00 10/17/16 14:59 09/20/16 12:08 650 MG Ondansetron HCl (Zofran Inj) 4 mg Q6H PRN IV 09/17/16 15:00 10/17/16 14:59 Aspirin (Ecotrin Tab) 81 mg QAM PO 09/18/16 08:00 10/18/16 07:59 09/23/16 07:50 81 MG Bisacodyl (Dulcolax Supp) 10 mg Q7D@0900 PRN [place] 09/17/16 15:30 10/17/16 15:29 Clopidogrel Bisulfate (plAVix TAB) 75 mg HS PO 09/17/16 22:00 10/17/16 21:59 09/22/16 21:49 75 MG Escitalopram Oxalate (Lexapro Tab) 15 mg QAM PO 09/18/16 08:00 10/18/16 07:59 09/23/16 07:50 15 MG Hydroxyzine HCl (Vistaril Tab) 12.5 mg HS PO 09/17/16 22:00 10/17/16 21:59 09/22/16 21:49 12.5 MG Isosorbide Mononitrate (Imdur Ext Rel Tab) 60 mg QAM PO 09/18/16 08:00 10/18/16 07:59 09/23/16 07:50 60 MG Lactobacillus Acidophilus (Floranex Tab) 1 tab DAILY PO 09/18/16 08:00 10/18/16 07:59 09/23/16 07:50 1 TAB Lisinopril (Zestril Tab) 10 mg QAM PO 09/18/16 08:00 10/18/16 07:59 09/23/16 07:50 10 MG Lorazepam (Ativan Tab) 0.5 mg TID PRN PO 09/17/16 15:30 10/17/16 15:29 Magnesium Chloride (Slow-Mag Tab) 64 mg TID PO 09/17/16 20:00 10/17/16 19:59 09/23/16 07:50 64 MG Metoprolol Tartrate (Lopressor Tab) 25 mg BID PO 09/17/16 20:00 10/17/16 19:59 09/23/16 07:50 25 MG Multivitamins/ Minerals (Multivitamin W/ Minerals Tab) 1 tab QAM PO 09/18/16 08:00 10/18/16 07:59 09/23/16 07:50 1 TAB Nitroglycerin (Nitrostat Tab) 0.4 mg UD PRN [place] 09/17/16 15:30 10/17/16 15:29 Oxycodone/ Acetaminophen (Percocet 5-325mg Tab) 1 tab Q6H PRN PO 09/17/16 15:30 10/01/16 15:29 09/23/16 06:28 1 TAB Pantoprazole Sodium (Protonix Tab) 40 mg BID PO 09/17/16 20:00 10/17/16 19:59 09/23/16 07:50 40 MG Rosuvastatin Calcium (Crestor Tab) 10 mg QAM PO 09/18/16 08:00 10/18/16 07:59 09/23/16 07:51 10 MG Senna/Docusate Sodium (Senokot S Tab) 2 tab HS PO 09/17/16 22:00 10/17/16 21:59 Future Hold 09/18/16 20:51 2 TAB Miscellaneous Information (Order Awaiting Action) 1 ea QS N/A 09/17/16 16:00 10/17/16 15:59 Insulin Glargine (Lantus Solostar Pen) SEE PROTOCOL BID SC 09/17/16 20:00 10/17/16 19:59 09/23/16 08:33 20 UNIT Insulin Aspart (novoLOG ASPART) SLIDING SCALE If C... ACHS SC 09/17/16 16:30 10/17/16 16:29 09/23/16 08:33 6 UNITS Glucose (Glucose 40% Gel) 15-30 GRAMS 15 GRAMS... UD PRN PO 09/17/16 15:30 10/17/16 15:29 Glucose (Glucose Chew Tab) 4-8 Tablets 4 Tabl... UD PRN PO 09/17/16 15:30 10/17/16 15:29 Dextrose (Dextrose 50% 50ML Syringe) 25-50ML OF 50% DW IV FOR... UD PRN IV 09/17/16 15:30 10/17/16 15:29 Glucagon (Glucagon Inj) 1 mg UD PRN SQ 09/17/16 15:30 10/17/16 15:29 Miscellaneous Information (Consult Glycemic Management Pharmacy) 1 ea UD N/A 09/17/16 16:07 10/17/16 16:06 Albuterol (Ventolin Hfa Inhaler) 2 puffs Q4H PRN INH 09/17/16 17:30 10/17/16 15:29 Sodium Biphosphate/ Sodium Phosphate (Fleet Enema) 132 ml DAILY PRN [place] 09/18/16 14:30 10/18/16 14:29 09/18/16 15:46 132 ML Polyethylene (Miralax Powder Packet) 17 gm TID PO 09/19/16 20:00 10/19/16 19:59 09/23/16 07:51 17 GM Hydrocortisone (Proctozone Hc 2.5% Crm) 1 appln BID PRN EXT 09/21/16 17:15 10/21/16 17:14 09/21/16 18:51 1 APPLN Objective Vital Signs Date Time Temp Pulse Resp B/P Pulse Ox O2 Delivery O2 Flow Rate FiO2 09/23/16 07:47 64 09/23/16 07:15 37.0 59 16 144/77 96 Room Air 09/23/16 00:00 Room Air 09/22/16 22:54 37.1 69 16 142/83 99 Room Air 09/22/16 16:00 Room Air 09/22/16 15:18 37.0 60 17 125/80 95 Physical Exam General Appearance: no apparent distress Respiratory/Chest: no respiratory distress, no accessory muscle use Abdomen: normal bowel sounds, non tender, soft Neurologic/Psychiatric: alert, + pertinent finding (blunted affect) Laboratory Results Last 24 Hours Test 09/22/16 11:26 09/22/16 16:36 09/22/16 20:19 09/23/16 07:40 Bedside Glucose 177 mg/dl 153 mg/dl 202 mg/dl 206 mg/dl Assessment and Plan This is a 61 year old female with PMH of uncontrolled diabetes mellitus, requiring insulin with multiple complications including neuropathy and nephropathy, chronic kidney disease stage III, hx. of CAD s/p CABG and PCI/stent , hx. of ventricular fibrillation s/p implantable cardioverter/defibrillator, HTN, HLD, diastolic CHF, severe SACHA not on CPAP Generalized Abdominal Pain possibly Colitis 09/23 resolved 09/22 for the most part, this has resolved she is tolerating PO intake 09/21 appreciate GI input bowel regimen + Florastor pain improved, no nausea/vomiting good PO intake 09/20 C. diff negative stool cultures pending continue PPI hold off on enema appreciate GI input she is now tolerating diet 09/19 appreciate GI input continue bowel regimen this morning, question of diarrhea will hold senna/colace continue PPI no plans for EGD at this time 09/18 was admitted last month to [facility] for the flu at that time, found to have C. diff, which was treated patient felt better at that time and was sent to Rehab niece is with her in the room and explains that they want to take her home after w/up is complete Dr. Ramirez, patient's primary - would like patient to have EGD - GI consulted bowel regimen and fleet enema PRN for constipation Flat Affect in the setting of Depression 09/23 again, patient should have outpatient f/u with psychiatry 09/22 continue current medications outpatient psych follow-up 09/21 continue Lexapro outpatient psych follow-up 09/20 psychomotor +depression on Lexapro 15mg possibly related to marijuana use? she is more awake/alert today 09/19 continue current depression/anxiety medications psych consultation pending 09/18 patient states that depression seems to be under control She is reserved and difficult to get to answer questions continue Lexapro for now will consult psych for any other recommendations Acute Kidney Injury superimposed on CKD stage 3 - resolved creat from 1.4 down to 1.1 seems to be back to baseline, encouraged PO intake Adrenal Incidentaloma CT shows an adrenal cyst would recommend outpatient lab work to check if it is functioning if we need to remove this - will have to f/u at [place] or tertiary center, as per general surgery here Insulin Dependent DM2, uncontrolled 09/23 Insulin dosage in the hospital has been significantly decreased she is requiring much less, possibly due to much improved diet Lantus 20 units BID on discharge Ha1c in August 2016 > 9.0% appreciate glycemic control consult novolog sliding scale Lantus is also on a sliding scale to prevent hypoglycemia CAD s/p CABG and PCI continue current cardiac medications - aspirin, Plavix, b-clyde, TAMARA-I, statin , Imdur Hx. of V. Fib s/p ICD DVT ppx subq heparin FULL CODE family wanted to speak with palliative care nurse - home with home hospice is what they wanted - she may not qualify for this d/c with home health in 1-2 days Discharge planning: home with home health
[2016-09-23] MEDS ORDERED: INSDGIPEN SC (08:48)
[2016-09-23 08:56] VITALS: BP 144/77; PULSE 64; TEMP 37; O2SAT 96
== END 2016-09-23 09:40 | disposition home or self-care (01) | DRG 392 ==
LOC: C.MS4W 14:03
PROVIDERS: ADMIT Hospitalist; ATTEND Family Medicine
DX: K52.9 Noninfective gastroenteritis and colitis, unspecified (principal); I50.32 Chronic diastolic (congestive) heart failure; N17.9 Acute kidney failure, unspecified; Z95.1 Presence of aortocoronary bypass graft; Z51.5 Encounter for palliative care; N18.3 Chronic kidney disease, stage 3 (moderate); J45.909 Unspecified asthma, uncomplicated; F32.9 Major depressive disorder, single episode, unspecified; I25.10 Atherosclerotic heart disease of native coronary artery without angina pectoris; I12.9 Hypertensive chronic kidney disease with stage 1 through stage 4 chronic kidney disease, or unspecified chronic kidney disease; E78.5 Hyperlipidemia, unspecified; K21.9 Gastro-esophageal reflux disease without esophagitis; E66.9 Obesity, unspecified; Z68.33 Body mass index [BMI] 33.0-33.9, adult; K56.41 Fecal impaction; E11.43 Type 2 diabetes mellitus with diabetic autonomic (poly)neuropathy; E11.319 Type 2 diabetes mellitus with unspecified diabetic retinopathy without macular edema; G47.33 Obstructive sleep apnea (adult) (pediatric); M35.3 Polymyalgia rheumatica; E78.00 Pure hypercholesterolemia, unspecified; Z90.49 Acquired absence of other specified parts of digestive tract; Z90.710 Acquired absence of both cervix and uterus; Z83.3 Family history of diabetes mellitus; Z80.1 Family history of malignant neoplasm of trachea, bronchus and lung; Z82.49 Family history of ischemic heart disease and other diseases of the circulatory system; Z79.82 Long term (current) use of aspirin; Z79.899 Other long term (current) drug therapy; Z79.4 Long term (current) use of insulin; Z95.5 Presence of coronary angioplasty implant and graft; E27.8 Other specified disorders of adrenal gland

== ENCOUNTER 2016-11-27 16:33 | Emergency (ER) | payer OTHER ==
[~2016-11-27] VITALS: Ht 157.5 cm; Wt 85.5 kg
[~2016-11-27 16:33] MED LIST changes: +ALBU18002 INH; +BISA10SU3 PR; -BUME1TAB PO; -MTR500 PO; +OXYC-643 PO
[2016-11-27 16:54] VITALS: TEMP 36.4; Ht 157.5 cm; Wt 85.5 kg
[2016-11-27] MEDS ORDERED: SODIUM CHLORIDE 0.9% 500ML 500 ML IV STA (17:10)
[2016-11-27] MEDS ORDERED: TPRSR/50 PO (17:52)
[2016-11-27] MEDS ORDERED: MAGN64TA4 PO (17:52)
[2016-11-27] MEDS ORDERED: LPT40 PO (17:52)
[2016-11-27] MEDS ORDERED: INSDGIPEN SC (17:52)
[2016-11-27] MEDS ORDERED: ISOS30TA35 PO (17:52)
[2016-11-27] MEDS ORDERED: NVLGI7030 SC (17:52)
[2016-11-27] MEDS ORDERED: LSN5 PO (17:52)
[2016-11-27 18:10] LABS: BASO % 0.2 %; BASO ABS # 0.02 K/uL (0-0.2); COMPLETE YES; EOS % 0.1 %; HEMATOCRIT 33.8 % (37-47); IG% 0.2 %; LYMPH % 28.2 %; LYMPH ABS # 2.97 K/uL (1.2-3.4); MEAN CORPUSCULAR HEMOGLOBIN 28.6 pg (25-34); MEAN CORPUSCULAR HGB CONC 32.5 g/dl (32-36); MEAN PLATELET VOLUME 10.1 fL (7.4-10.4); MONO % 2.7 %; NEUT % 68.6 %; PLATELET COUNT 207 K/uL (130-400); RED BLOOD COUNT 3.84 M/uL (4.2-5.4); WHITE BLOOD COUNT 10.55 K/uL (4.8-10.8)
[2016-11-27 18:37] LABS: ALT/SGPT 20 U/L (12-78); AST/SGOT 13 U/L (15-37); BLOOD UREA NITROGEN 26 mg/dl (7-18); BUN/CREATININE RATIO 23.8 (10-20); CALCIUM 10.1 mg/dl (8.5-10.1); CARBON DIOXIDE 29 mmol/L (21-32); CHLORIDE 103 mmol/L (98-107); GLUCOSE 112 mg/dl (70-99); POTASSIUM 4.3 mmol/L (3.5-5.1); SODIUM 140 mmol/L (136-145)
[2016-11-27 18:43] LABS: ALB/GLOB RATIO 0.7 (0.9-2); ALKALINE PHOSPHATASE 54 U/L (45-117)
--- NOTE | 2016-11-27 19:09 | DIAGNOSTIC IMAGING REPORT ---
ABDOMEN 2VIEW W/PA CHEST RTN CLINICAL HISTORY: constipation, vomiting, abd pain COMPARISON STUDY: 09/20/2016 FINDINGS: The erect chest reveals mild cardiac enlargement. There is a left subclavian pacer/defibrillator present. There are postsurgical changes of a midline sternotomy. There is no free air. Supine and decubitus view of the abdomen reveal moderate stool within the right and transverse colon. There are no transition zones indicate bowel obstruction. There are surgical clips within the right upper quadrant consistent with a prior cholecystectomy. IMPRESSION: No evidence of bowel obstruction. No evidence of free air. Electronically signed by: Chau Meyers M.D. 11/27/2016 7:07 PM Dictated Date/Time: 11/27/2016 7:06 PM
[2016-11-27 20:19] LABS: URINE APPEARANCE CLEAR (CLEAR); URINE BILIRUBIN NEG (NEG); URINE COLOR YELLOW; URINE EPITHELIAL CELL AUTO 0-5 /lpf (0-5); URINE NITRITE NEG (NEG); URINE PH 5.5 (4.5-7.5); URINE SPECIFIC GRAVITY 1.015 (1.000-1.030); UROBILINOGEN NEG (NEG); ZZUR CULT IF INDIC CLEAN CATCH YES
[2016-11-27 20:27] LABS: MANUAL MICROSCOPIC REQUIRED? NO; REVIEW REQ? NO
--- NOTE | 2016-11-27 20:48 | DIAGNOSTIC IMAGING REPORT ---
CT SCAN OF THE ABDOMEN AND PELVIS WITHOUT CONTRAST CLINICAL HISTORY: Abdominal pain and vomiting COMPARISON STUDY: 09/17/2016 TECHNIQUE: CT scan of the abdomen and pelvis was performed from the lung bases to the proximal femurs. Images are reviewed in the axial, sagittal, and coronal planes. IV contrast was not administered for this examination. CT DOSE: 553.30 mGy.cm FINDINGS: Lower chest: The heart is normal in size and configuration, without pericardial effusion. The lung bases and pleural spaces are clear. Liver: The unenhanced liver is normal in size, contour, and attenuation. There is no intrahepatic biliary ductal dilatation. Gallbladder: Surgically absent Spleen: Normal in size and attenuation. Pancreas: Unremarkable. Adrenal glands: There is a stable 25 mm left adrenal gland nodule. This is indeterminate. Kidneys: There are bilateral nonobstructing renal calculi. No ureteral or bladder calculi are visualized. Bowel: There are no transition zones indicate bowel obstruction. There is a large amount of stool within the rectal vault which measures 6.5 cm transversely. By history the appendix is surgically absent. There is no acute diverticulitis. Peritoneum: There is no intraperitoneal free air or abdominal ascites. There is small fat-containing umbilical hernia. There is rectus diastases. Vasculature: The abdominal aorta is normal in course and caliber. Adenopathy: There are scattered retroperitoneal lymph nodes including a borderline enlarged left common iliac node measuring 8.5 mm in short axis. Pelvic viscera: The uterus appears surgically absent Skeletal structures: There is posterior soft tissue edema. As a 5 cm ovoid collection located posterior to the left gluteus musculature medially. This was not present on the prior study and is therefore not felt to be neoplastic. IMPRESSION: 1. Stable 25 mm left adrenal nodule 2. Bilateral nephrolithiasis 3. No evidence of bowel obstruction. No evidence of free air 4. Surgically absent appendix. No evidence of acute diverticulitis 5. Interval development of a 5 cm subcutaneous collection posterior to the left gluteus musculature medially. As this was not present on the prior study, this is not felt to be neoplastic. This therefore likely represents a hematoma, cyst, or inflammatory lesion 6. Fecal retention Electronically signed by: Chau Meyers M.D. 11/27/2016 8:47 PM Dictated Date/Time: 11/27/2016 8:39 PM
[2016-11-27] MEDS ORDERED: ONDA4TAB10 SL (21:59)
--- NOTE | 2016-11-27 21:59 | EMERGENCY ROOM VISIT NOTE ---
History First contact with patient: 17:00 Chief Complaint: GI ASSESSMENT Stated Complaint: SEVERE VOMITING, CONSTIPATON Nursing Triage Summary: Patient presents to triage via wheelchair, states "I have been vomiting constantly since last night. I have been constipated but I moved my bowels a little bit today." History of Present Illness The patient is a 61 year old female who presents to the Emergency Room with complaints of vomiting and abdominal pain. The patient states that she vomited after dinner last name. She had 2 additional episodes of vomiting today. She has not been able to keep anything down. The patient has been constipated and has not had a normal bowel movement in 4 days. She is a diabetic and her family states that her blood sugars have been well-controlled. The patient does have a history of abdominal issues and was recently admitted to gastroenterology for chronic constipation. She did use MiraLAX last night with no relief. She denies any coffee-ground emesis, hematemesis, fevers, urinary symptoms, hematochezia, melena, chest pain or shortness of breath. Review of Systems A complete 10 point review of systems was reviewed with the patient with pertinent positives and negatives as per history of present illness. All else were negative. Past Medical/Surgical History Medical Problems: (1) Abdominal pain (2) Ambulatory dysfunction (3) Aortocoronary Bypass (4) Asthma, Unspecified (5) CKD (chronic kidney disease), stage III (6) Coronary atherosclerosis of [place] coronary vessel (7) Depression (8) Diab Nany Wo Compl, Type Ii Or Unspec Type, Not Uncntrld (9) Diabetic nephropathy (10) Diabetic retinopathy (11) GERD (gastroesophageal reflux disease) (12) Hypertension Nos (13) Neuropathy in diabetes (14) Obesity, Class II, BMI 35-39.9, with comorbidity (15) Obstructive Sleep Apnea (Adult) (Pediatric) (16) Osteoarthritis (17) Pacemaker (18) Polymyalgia rheumatica (19) Presence of combination internal cardiac defibrillator (ICD) and pacemaker (20) Pure Hypercholesterolem (21) Ventricular fibrillation Surgical Problems: (1) H/O eye surgery (2) History of appendectomy (3) History of cholecystectomy (4) History of hysterectomy (5) History of hysterectomy (6) S/P triple vessel bypass Social History Problems: (1) Diabetes mellitus Family History Diabetes mellitus FATHER BROTHER FH: cancer FH: lung disease FHx: heart disease MOTHER Hypertension MOTHER Kidney disease Kidney stones Social History Smoking Status: Former Smoker Alcohol Use: occasionally Drug Use: none Marital Status: Housing Status: lives alone Occupation Status: disabled Current/Historical Medications Scheduled Aspirin (Aspirin Ec), 81 MG PO QAM Atorvastatin (Atorvastatin Calcium), 40 MG PO DAILY Calcium Carbonate-Cholecalcife (Caltrate 600+D), 1 TABLET PO BID Clopidogrel Bisulfate (Plavix), 75 MG PO HS Escitalopram Oxalate (Lexapro), 15 MG PO QAM Hydroxyzine Hcl (Atarax), 25 MG PO HS Insulin Aspart Protamine & Asp (Novolog Mix 70/30), 1 DOSE SC SLIDING SCALE Insulin Glargine (Lantus Solostar), 30 UNITS SC AMPM Isosorbide Mononitrate Ext Rel (Imdur Ext Rel), 30 MG PO TID Lactobacillus (Floranex), 1 TAB PO DAILY Lisinopril (Lisinopril), 15 MG PO DAILY Magnesium Chloride (Mag64), 1 TAB PO TID Metoprolol Succinate (Metoprolol Succinate ER), 50 MG PO BID Multivitamins/Minerals (Mvi With Minerals), 1 TABLET PO QAM Ondasetron Odt (Zofran Odt), 4 MG SL Q6H Pantoprazole (Protonix), 40 MG PO BID Polyethylene Glycol 3350 (Miralax), 17 MG PO BID Sennosides-Docusate Sodium (Senna Plus), 2 TAB PO HS Scheduled PRN Albuterol Sulfate (Proair Respiclick), 2 PUFFS INH Q4H PRN for Wheezing Guaifenesin Ext Rel (Mucinex Ext Rel), 600 MG PO Q12 PRN for Nasal Congestion Lorazepam (Ativan), 0.5 MG PO TID PRN for Anxiety Nitroglycerin (Nitrostat), 0.4 MG UT UD PRN for Chest Pain Oxycodone/Acetaminophen 5MG/325MG (Oxycodone/Acetaminophen 5MG/325MG), 1 TABLET PO Q6H PRN for Pain Allergies Coded Allergies: BEE STING (Verified Allergy, Severe, SWELLING, 11/27/16) Lidocaine (Verified Allergy, Severe, ANAPHYLAXIS, 11/27/16) Morphine (Verified Allergy, Mild, itching, 11/27/16) Tramadol (Verified Allergy, Mild, ITCHING, 11/27/16) Trazodone (Verified Allergy, Mild, ITCHING, 11/27/16) Physical Exam Vital Signs Date Time Temp Pulse Resp B/P Pulse Ox O2 Delivery O2 Flow Rate FiO2 11/27/16 22:05 77 20 150/92 99 Room Air 11/27/16 21:00 70 20 138/62 95 Room Air 11/27/16 19:15 88 20 145/67 98 Room Air 11/27/16 16:54 36.4 83 16 134/67 Room Air Physical Exam VITALS: Vitals are noted on the nurse's note and reviewed by myself. Vital signs stable. GENERAL: This is a 61-year-old female, in no acute distress, nondiaphoretic, well-developed well-nourished. SKIN: The skin was without rashes. There is a small area of swelling over the left medial buttock. There is no induration or evidence of abscess. EARS: External auditory canals clear, tympanic membranes pearly lopez without erythema or effusion bilaterally. EYES: Pupils equal round and reactive to light and accommodation. MOUTH: Mucous membranes moist. HEART: Regular rate and rhythm without murmurs gallops or rubs. LUNGS: Clear to auscultation bilaterally without wheezes, rales or rhonchi. ABDOMEN: Positive bowel sounds x 4. Soft, nondistended with mild generalized tenderness to palpation. There is no focal tenderness. No guarding or rebound tenderness. NEURO: Patient was alert and oriented to person place and time. Medical Decision & Procedures ER Provider Diagnostic Interpretation: ABDOMEN 2VIEW W/PA CHEST RTN FINDINGS: The erect chest reveals mild cardiac enlargement. There is a left subclavian pacer/defibrillator present. There are postsurgical changes of a midline sternotomy. There is no free air. Supine and decubitus view of the abdomen reveal moderate stool within the right and transverse colon. There are no transition zones indicate bowel obstruction. There are surgical clips within the right upper quadrant consistent with a prior cholecystectomy. IMPRESSION: No evidence of bowel obstruction. No evidence of free air. CT SCAN OF THE ABDOMEN AND PELVIS WITHOUT CONTRAST IMPRESSION: 1. Stable 25 mm left adrenal nodule 2. Bilateral nephrolithiasis 3. No evidence of bowel obstruction. No evidence of free air 4. Surgically absent appendix. No evidence of acute diverticulitis 5. Interval development of a 5 cm subcutaneous collection posterior to the left gluteus musculature medially. As this was not present on the prior study, this is not felt to be neoplastic. This therefore likely represents a hematoma, cyst, or inflammatory lesion 6. Fecal retention Laboratory Results 11/27/16 17:58 Red Blood Count 3.84, Mean Corpuscular Volume 88.0, Mean Corpuscular Hemoglobin 28.6, Mean Corpuscular Hemoglobin Concent 32.5, Mean Platelet Volume 10.1, Neutrophils (%) (Auto) 68.6, Lymphocytes (%) (Auto) 28.2, Monocytes (%) (Auto) 2.7, Eosinophils (%) (Auto) 0.1, Basophils (%) (Auto) 0.2, Neutrophils # (Auto) 7.25, Lymphocytes # (Auto) 2.97, Monocytes # (Auto) 0.28, Eosinophils # (Auto) 0.01, Basophils # (Auto) 0.02 11/27/16 17:58 Test 11/27/16 17:58 11/27/16 19:30 White Blood Count 10.55 K/uL (4.8-10.8) Red Blood Count 3.84 M/uL (4.2-5.4) Hemoglobin 11.0 g/dL (12.0-16.0) Hematocrit 33.8 % (37-47) Mean Corpuscular Volume 88.0 fL (80-100) Mean Corpuscular Hemoglobin 28.6 pg (25-34) Mean Corpuscular Hemoglobin Concent 32.5 g/dl (32-36) Platelet Count 207 K/uL (130-400) Mean Platelet Volume 10.1 fL (7.4-10.4) Neutrophils (%) (Auto) 68.6 % Lymphocytes (%) (Auto) 28.2 % Monocytes (%) (Auto) 2.7 % Eosinophils (%) (Auto) 0.1 % Basophils (%) (Auto) 0.2 % Neutrophils # (Auto) 7.25 K/uL (1.4-6.5) Lymphocytes # (Auto) 2.97 K/uL (1.2-3.4) Monocytes # (Auto) 0.28 K/uL (0.11-0.59) Eosinophils # (Auto) 0.01 K/uL (0-0.5) Basophils # (Auto) 0.02 K/uL (0-0.2) RDW Standard Deviation 42.9 fL (36.4-46.3) RDW Coefficient of Variation 13.3 % (11.5-14.5) Immature Granulocyte % (Auto) 0.2 % Immature Granulocyte # (Auto) 0.02 K/uL (0.00-0.02) Anion Gap 8.0 mmol/L (3-11) Est Creatinine Clear Calc Drug Dose 53.1 ml/min Estimated GFR () 61.9 Estimated GFR (Non- 53.4 BUN/Creatinine Ratio 23.8 (10-20) Calcium Level 10.1 mg/dl (8.5-10.1) Total Bilirubin 0.4 mg/dl (0.2-1) Aspartate Amino Transf (AST/SGOT) 13 U/L (15-37) Alanine Aminotransferase (ALT/SGPT) 20 U/L (12-78) Alkaline Phosphatase 54 U/L (45-117) Troponin I < 0.015 ng/ml (0-0.045) Total Protein 8.8 gm/dl (6.4-8.2) Albumin 3.7 gm/dl (3.4-5.0) Globulin 5.1 gm/dl (2.5-4.0) Albumin/Globulin Ratio 0.7 (0.9-2) Lipase 274 U/L (73-393) Urine Color YELLOW Urine Appearance CLEAR (CLEAR) Urine pH 5.5 (4.5-7.5) Urine Specific [place] 1.015 (1.000-1.030) Urine Protein NEG (NEG) Urine Glucose (UA) NEG (NEG) Urine Ketones NEG (NEG) Urine Occult Blood NEG (NEG) Urine Nitrite NEG (NEG) Urine Bilirubin NEG (NEG) Urine Urobilinogen NEG (NEG) Urine Leukocyte Esterase SMALL (NEG) Urine WBC (Auto) 10-30 /hpf (0-5) Urine RBC (Auto) 0-4 /hpf (0-4) Urine Hyaline Casts (Auto) 1-5 /lpf (0-5) Urine Epithelial Cells (Auto) 0-5 /lpf (0-5) Urine Bacteria (Auto) 1+ (NEG) Medications Administered Medications (Trade) Dose Ordered Sig/Tera Route Start Time Stop Time Status Last Admin Dose Admin Sodium Chloride (Nss 500ml) 500 ml @ 500 mls/hr Q1H STAT IV 11/27/16 17:10 11/27/16 18:09 DC 11/27/16 17:10 500 MLS/HR Ondansetron HCl (ZOFRAN ODT 4MG Home Pack) 1 homepack UD ONCE PO 11/27/16 22:00 11/27/16 22:01 DC 11/27/16 22:06 1 HOMEPACK ECG Rate (beats per minute): 62 Rhythm: other (atrial paced rhythm) Findings: no acute ischemic change, no ectopy ED Course The patient was evaluated as above. Labs were drawn and IV access was obtained. Patient was medicated with a 500 mL saline bolus. Imaging studies were performed and read by radiology as above. Patient was reevaluated and findings were discussed. The patient is ready for discharge. Discharge instructions were reviewed with the patient. The patient verbalized understanding of my assessment and treatment plan and was discharged home in good condition. Medical Decision Differential diagnosis includes constipation, small bowel obstruction, malignancy, fecal impaction, among others. The patient is a 61-year-old female who presents today complaining of generalized abdominal pain and constipation. Previous records were reviewed. The patient had a recent admission and appears to have chronic gastrointestinal issues and constipation. She was previously placed on a bowel regimen of MiraLAX twice a day. Labs revealed no leukocytosis. There is a mild anemia. No concerning electrolyte abnormalities. Urinalysis was not suggestive of infection. EKG showed no acute ischemic changes. Abdominal series was initially performed and was unremarkable. At this time, had a discussion with the patient and family members. They were concerned because the vomiting was different from the patient's chronic abdominal issues. Decision was made to proceed with CT scan of the abdomen and pelvis. CT was obtained and read by radiology. This showed an indeterminate mass in the left gluteal region. On exam, this does not appear to be infectious. There is no evidence of abscess. It is likely a cyst or hematoma. It is not tender to palpation. The patient is constipated, but this is not a new issue for her. She has been previously instructed by GI to use MiraLAX twice daily when she becomes constipated. She was instructed to do this and follow-up with gastroenterology. The patient was independently evaluated by Dr. Martino, ED attending physician , who agreed with my assessment and treatment plan. Based on the patient's presentation and work up, I feel the patient is stable for outpatient treatment. The patient was educated to return to the emergency department for any worsening of their current condition or new/concerning symptoms. She will follow up with her PCP and GI. Impression Primary Impression: Constipation Additional Impressions: Abdominal pain, generalized Vomiting Departure Information Dispostion Home / Self-Care Condition GOOD Prescriptions Ondasetron Odt (ZOFRAN ODT) 4 Mg Tab 4 MG SL Q6H for Nausea, #15 TAB Prov: Sangeetha Shipman ., MAYTE 11/27/16 Referrals Reginaldo Ramirez D.OJack (PCP) Patient Instructions My [facility] Additional Instructions You have been prescribed Zofran to be used for any nausea or vomiting. Take as prescribed. Rest and drink plenty of fluids. Restart the MiraLAX twice a day. Follow-up with Dr. Ramirez and your GI doctor within 48 hours. Return here for worsening pain, worsening vomiting or any other new/concerning symptoms. Problem Qualifiers Primary Impression: Constipation Constipation type: unspecified constipation type Qualified Codes: K59.00 - Constipation, unspecified Additional Impressions: Vomiting Vomiting type: unspecified Vomiting Intractability: non-intractable Nausea presence: with nausea Qualified Codes: R11.2 - Nausea with vomiting, unspecified
[2016-11-27] MEDS ORDERED: ONDANSETRON HOME PACK 4MG OD TAB PO ONE (22:00)
[2016-11-27 22:05] VITALS: BP 150/92; PULSE 77; O2SAT 99
--- NOTE | 2016-11-28 00:51 | EMERGENCY ROOM VISIT NOTE ---
ED Visit Note First contact with patient: 20:17 I have personally evaluated and examined this patient. I agree with assessment and plan of Sangeetha Shipman PA-C.
--- NOTE | 2016-11-29 15:06 | Pharmacy Progress Note ---
ED Pharmacist Culture FollowUp Date of Service: November 29, 2016. Patient was seen in the ER 11/27 w/ c/o NV, abdominal pain and constipation (no BM x 4 days). She had a prior h/o admission for severe constipation. She was ultimately dx with constipation and discharged to home. Today the patient's urine cx is growing 2 organisms: enterococcus faecalis and gardnerella-like bacilli. The ER note was reviewed, and the patient reported no urinary symptoms. This culture likely reflects asymptomatic bacteruria which does not require treatment w/ abx. No action required.
[2017-05-20] MEDS ORDERED: ONDA4TAB46 PO (13:55)
[2017-05-24] MEDS ORDERED: AMOX1TAB42 PO (16:45)
== END 2016-11-27 22:11 | disposition home or self-care (01) ==
LOC: C.EDB 16:34 → C.EDA 22:11
DX: R10.84 Generalized abdominal pain (principal); R11.10 Vomiting, unspecified; K59.00 Constipation, unspecified; E11.319 Type 2 diabetes mellitus with unspecified diabetic retinopathy without macular edema; E11.21 Type 2 diabetes mellitus with diabetic nephropathy; N18.9 Chronic kidney disease, unspecified; I12.9 Hypertensive chronic kidney disease with stage 1 through stage 4 chronic kidney disease, or unspecified chronic kidney disease; Z79.899 Other long term (current) drug therapy; G47.33 Obstructive sleep apnea (adult) (pediatric); E66.9 Obesity, unspecified; Z68.35 Body mass index [BMI] 35.0-35.9, adult; Z79.4 Long term (current) use of insulin; Z87.891 Personal history of nicotine dependence

== ENCOUNTER 2016-12-19 09:21 | Inpatient (IN) | payer OTHER ==
[~2016-12-19] VITALS: Ht 160 cm; Wt 88.9 kg
[~2016-12-19 09:21] MED LIST changes: -BISA10SU3 PR; -CRS/10 PO; -DIFL0.0519; +ISOS30TA35 PO; -ISOS60TA2 PO; -KETO2SHA TOP; -LISI-729 PO; +LPT40 PO; +LSN5 PO; +MAGN64TA4 PO; -MAGNTAB4 PO; -METO25TA56 PO; -NVLGI/PEN SC; +NVLGI7030 SC; +ONDA4TAB10 SL; +TPRSR/50 PO
[2016-12-19] MEDS ORDERED: NVLGI/PEN SC (09:42)
[2016-12-19] MEDS ORDERED: DOCU100C31 PO (09:42)
[2016-12-19] MEDS ORDERED: LISI10TA PO (09:42)
[2016-12-19] MEDS ORDERED: PROMETHAZINE HCL INJ 12.5 MG in SODIUM CHLORIDE 0.9% 50ML 50 ML IV STA (10:00)
--- NOTE | 2016-12-19 11:06 | DIAGNOSTIC IMAGING REPORT ---
HEAD CT NONCONTRAST CT DOSE: 537.48 mGy.cm HISTORY: Trauma fall eval for bleed TECHNIQUE: Multiaxial CT images of the head were performed without the use of intravenous contrast. Comparison: None. Findings: The paranasal sinuses and mastoid air cells are clear. The calvarium and skull base are intact. The ventricles and sulci are within normal limits. There is no mass, hematoma, midline shift, or acute infarct. Impression: No acute intracranial abnormality. Electronically signed by: James Nickerson M.D. 12/19/2016 11:04 AM Dictated Date/Time: 12/19/2016 11:02 AM
--- NOTE | 2016-12-19 11:22 | DIAGNOSTIC IMAGING REPORT ---
ABDOMEN 2VIEW W/PA CHEST RTN CLINICAL HISTORY: Abdominal pain COMPARISON STUDY: 11/27/2016 FINDINGS: There are postsurgical changes of a midline sternotomy. The heart is normal in size. There is a left subclavian pacer/defibrillator present. There is no focal pulmonary consolidation. There is no free intraperitoneal air. Erect and supine views the abdomen reveal no abnormally dilated loops of large or small bowel. There are no transition zones indicate bowel obstruction. Right upper quadrant surgical clips, are consistent with a prior cholecystectomy. Nonspecific pelvic basin calcifications remain stable, and therefore likely represent phleboliths. IMPRESSION: No evidence of bowel obstruction. No evidence of free air. Electronically signed by: Chau Meyers M.D. 12/19/2016 11:21 AM Dictated Date/Time: 12/19/2016 11:19 AM
[2016-12-19 11:44] LABS: BASO % 0.2 %; BASO ABS # 0.02 K/uL (0-0.2); COMPLETE YES; HEMATOCRIT 38.7 % (37-47); IG% 0.2 %; LYMPH ABS # 1.97 K/uL (1.2-3.4); MEAN CELL VOLUME 86.8 fL (80-100); MEAN CORPUSCULAR HEMOGLOBIN 28.5 pg (25-34); MEAN CORPUSCULAR HGB CONC 32.8 g/dl (32-36); MEAN PLATELET VOLUME 10.2 fL (7.4-10.4); MONO % 3.4 %; NEUT % 80.2 %; PLATELET COUNT 276 K/uL (130-400); RED BLOOD COUNT 4.46 M/uL (4.2-5.4); WHITE BLOOD COUNT 12.33 K/uL (4.8-10.8)
[2016-12-19 12:01] LABS: CALCIUM 9.4 mg/dl (8.5-10.1); CREATININE 1.4 mg/dl (0.60-1.20); POTASSIUM 3.9 mmol/L (3.5-5.1)
[2016-12-19 12:11] LABS: BETA-HYDROXYBUTYRATE 4.8 mg/dL (0.2-2.81)
[2016-12-19] MEDS ORDERED: NovoLIN-R INSULIN PER UNIT CHARGE IV STA (12:15)
[2016-12-19] MEDS ORDERED: SODIUM CHLORIDE 0.9% 500ML 500 ML IV STA (12:15)
[2016-12-19] MEDS ORDERED: LISINOPRIL 5 MG TAB PO ONE (12:15)
[2016-12-19] MEDS ORDERED: LORAZEPAM 0.5 MG TAB PO PRN (15:15)
[2016-12-19] MEDS ORDERED: NITROGLYCERIN 0.4 MG SL PER TAB CHARGE UT PRN (15:15)
[2016-12-19] MEDS ORDERED: GLUCOSE 10 TABS/TUBE PO PRN (15:30)
[2016-12-19] MEDS ORDERED: DEXTROSE 50% 50 ML SYR IV PRN (15:30)
[2016-12-19] MEDS ORDERED: GLUCAGON FOR INJ 1 MG VIAL SQ PRN (15:30)
[2016-12-19] MEDS ORDERED: GLUCOSE 40% GEL 15 GM TUBE PO PRN (15:30)
[2016-12-19] MEDS ORDERED: POLYETHYLENE (MIRALAX) 17 GM PACK PO PRN (15:30)
--- NOTE | 2016-12-19 16:33 | Progress Note ---
Progress Note Date of Service Dec 19, 2016. Progress Note Patient was seen and evaluated with MAYTE Lara. Patient came in with Nausea/Vomiting x 4-5 days. She does have chronic abdominal pain. Came in as was unable to keep anything down, including her medications/insulin. No fever, chills, exposure to sick contacts, had no outside food. EXAM: Gen: Flat affect +, AAOX3 HEENT: No icterus Neck: No JVD Lungs: AEBE, no wheezing, rales, rhonchi Heart: S1, S2 normal Abd: Soft, mild generalized tenderness, BS +, non distended Ext: No edema Labs reviewed ASSESSMENT/PLAN: NAUSEA/VOMITING: D/D considered: Gastroparesis with hx of DM ? , but no known hx of it, Abdominal x ray- no obstruction Has had symptoms of abdominal pain in past during last 2 admissions, but no specific diagnosis found- was treated for non specific colitis, Has hx of c diff in past, but no diarrhea this time -Clear liquid diet -IVF -IV Zofran PRN -Monitor SABRINA Likely pre renal Up to 1.4 from baseline of 1.1 -IVF -Monitor DM-IDDM HTN HX OF CAD S/P CABG HX OF ICD DEPRESSION DISPOSITION Admit to med-surg Agree with A/P of MAYTE Lara
[2016-12-19 16:43] VITALS: BP 169/72; PULSE 84; TEMP 36.7; O2SAT 95
[2016-12-19] MEDS ORDERED: ALBUTEROL HFA 8 GM INHALER INH PRN (17:00)
--- NOTE | 2016-12-19 17:02 | History and Physical ---
History & Physical Date & Time of Service: Dec 19, 2016 at 16:27 Chief Complaint: Nausea Primary Care Physician: Reginaldo Ramirez D.O. History of Present Illness Source: patient, clinic records, hospital records This is a 61 year old female with PMH of DM type 2 insulin dependent, CAD s/p CABG, HTN, HL, diastolic CHF, hx VT s/p ICD, GERD, CKD stage III, and other problems listed below who presents to the ED for vomiting. Patient was previously admitted to [facility] in Aug 2016 for C. diff and in September 2016 for abdominal pain ? secondary to colitis (C. diff negative) and depression. She was seen by GI and psych at that time. She was found to have an adrenal cyst at that time and [facility], adrenal labs were normal, planned for surveillance. Pt states she was treated for UTI in November but no longer having urinary symptoms. Patient states vomiting started 5 days ago. She reports inability to keep down food, liquids, meds. Last emesis was this morning [employer]. Nausea is improved after Phenergan given in ER. Pt reports ongoing abdominal pain described as aching in periumbilical area which is intermittent x several months. She states last BM was soft formed this morning. She is feeling generally weak and tired with subjective warmth/ cold and sweats. Patient fell onto her buttocks 5 days ago due to losing balance while walking with her aide. Uses cane, walker, or wheelchair at home. States mood is stable. Denies URI symptoms, cough, SOB, chest pain, hematemesis, hematochezia, melena. She did not take her AM meds today nor did she take her insulin. Pt states home BSG ran high 200s this week. No travel, sick contact, unusual food intake. No recent EGD. Past Medical/Surgical History Medical Problems: (1) Aortocoronary Bypass Status: Resolved (2) Asthma, Unspecified Status: Chronic (3) CKD (chronic kidney disease), stage III Status: Chronic (4) Coronary atherosclerosis of [place] coronary vessel Permanent Comment: s/p CABG (SVG to OM, SVT to OM2, MEHTA to LAD) on 04/05/1998 s/p HEIDY x2 (LM and LAD) in 06/2012 Status: Chronic (5) Depression Status: Chronic (6) Diab Nany Wo Compl, Type Ii Or Unspec Type, Not Uncntrld Status: Chronic (7) Diabetic nephropathy Status: Chronic (8) Diabetic retinopathy Status: Chronic (9) GERD (gastroesophageal reflux disease) Status: Chronic (10) Hypertension Nos Status: Chronic (11) Neuropathy in diabetes Status: Chronic (12) Obesity, Class II, BMI 35-39.9, with comorbidity Status: Chronic (13) Obstructive Sleep Apnea (Adult) (Pediatric) Status: Chronic (14) Pacemaker Status: Resolved (15) Polymyalgia rheumatica Status: Chronic (16) Presence of combination internal cardiac defibrillator (ICD) and pacemaker Status: Chronic (17) Pure Hypercholesterolem Status: Chronic (18) Ventricular fibrillation Permanent Comment: VF arrest x2 s/p ICD placement Status: Chronic Surgical Problems: (1) H/O eye surgery Status: Chronic (2) History of appendectomy Status: Resolved (3) History of cholecystectomy Status: Resolved (4) History of hysterectomy Status: Resolved (5) History of hysterectomy Status: Chronic (6) S/P triple vessel bypass Status: Resolved Social History Problems: (1) Diabetes mellitus Status: Chronic Family History Diabetes mellitus FATHER BROTHER FH: cancer FH: lung disease FHx: heart disease MOTHER Hypertension MOTHER Kidney disease Kidney stones Social History Smoking Status: Former Smoker Alcohol Use: none Drug Use: none Marital Status: Housing status: lives with family (with sister. has aides at home. ) Occupational Status: disabled Immunizations History of Influenza Vaccine: N/A History of Tetanus Vaccine?: No History of Pneumococcal: No History of Hepatitis B Vaccine: No Allergies Coded Allergies: BEE STING (Verified Allergy, Severe, SWELLING, 11/27/16) Lidocaine (Verified Allergy, Severe, ANAPHYLAXIS, 11/27/16) Morphine (Verified Allergy, Mild, itching, 11/27/16) Tramadol (Verified Allergy, Mild, ITCHING, 11/27/16) Trazodone (Verified Allergy, Mild, ITCHING, 11/27/16) Home Medications Scheduled Aspirin (Aspirin Ec), 81 MG PO QAM Atorvastatin (Atorvastatin Calcium), 40 MG PO DAILY Calcium Carbonate-Cholecalcife (Caltrate 600+D), 1 TABLET PO BID Clopidogrel Bisulfate (Plavix), 75 MG PO HS Docusate Sodium (Docusate Sodium), 100 MG PO BID Escitalopram Oxalate (Lexapro), 15 MG PO QAM Hydroxyzine Hcl (Atarax), 25 MG PO HS Insulin Aspart (Novolog Flexpen), 30 UNITS SC AC Insulin Glargine (Lantus Solostar), 20 UNITS SC AMPM Isosorbide Mononitrate Ext Rel (Imdur Ext Rel), 90 MG PO DAILY Lactobacillus (Floranex), 1 TAB PO DAILY Lisinopril (Prinivil), 10 MG PO QAM Magnesium Chloride (Mag64), 1 TAB PO TID Metoprolol Succinate (Metoprolol Succinate ER), 50 MG PO BID Multivitamins/Minerals (Mvi With Minerals), 1 TABLET PO QAM Pantoprazole (Protonix), 40 MG PO BID Sennosides-Docusate Sodium (Senna Plus), 1 TAB PO HS Scheduled PRN Albuterol Sulfate (Proair Respiclick), 2 PUFFS INH Q4H PRN for Wheezing Lorazepam (Ativan), 0.5 MG PO TID PRN for Anxiety Nitroglycerin (Nitrostat), 0.4 MG UT UD PRN for Chest Pain Review of Systems Ten systems reviewed and negative except as noted in HPI. Physical Exam Vital Signs Date Time Temp Pulse Resp B/P (MAP) Pulse Ox O2 Delivery O2 Flow Rate FiO2 12/19/16 16:20 84 16 190/90 99 12/19/16 15:51 88 0 97 12/19/16 15:32 198/88 12/19/16 15:21 92 10 98 12/19/16 15:02 185/81 12/19/16 14:51 91 0 96 12/19/16 14:46 90 20 180/83 100 Room Air 12/19/16 14:46 180/83 12/19/16 14:32 197/102 12/19/16 14:21 90 0 98 12/19/16 14:02 90 20 187/98 97 12/19/16 14:02 185/108 12/19/16 13:56 187/98 12/19/16 13:33 90 12/19/16 13:33 227/93 12/19/16 13:26 114/93 12/19/16 13:21 88 14 99 12/19/16 13:20 88 18 114/93 99 Room Air 12/19/16 12:51 89 15 95 12/19/16 12:44 92 12 202/98 100 Room Air 12/19/16 12:44 202/98 12/19/16 12:32 188/116 12/19/16 12:21 93 11 99 12/19/16 12:02 194/83 12/19/16 11:51 85 20 96 12/19/16 11:32 174/75 12/19/16 11:30 85 20 189/86 96 Room Air 12/19/16 11:30 189/86 12/19/16 10:21 87 12 99 12/19/16 10:16 89 18 191/82 100 Room Air 12/19/16 10:15 191/82 12/19/16 09:51 85 0 12/19/16 09:30 36.9 88 16 191/163 100 Room Air 12/19/16 09:24 196/163 General Appearance: + obese, + pertinent finding (alert 61 year old female, no distress, flat affect) Head: normocephalic, atraumatic Eyes: normal inspection, PERRL, EOMI, sclerae normal ENT: hearing grossly normal, pharynx normal Neck: supple, trachea midline Respiratory/Chest: lungs clear, normal breath sounds, no respiratory distress, no accessory muscle use Cardiovascular: regular rate, rhythm, no murmur Abdomen/GI: normal bowel sounds, soft, + pertinent finding (obese. diffuse mild tenderness. no guarding. ) Extremities/Musculoskelatal: no calf tenderness, no pedal edema Neurologic/Psych: alert, oriented x 3, + pertinent finding (flat depressed affect. grossly nonfocal. ) Skin: normal color, warm/dry Diagnostics Laboratory Results Results Past 24 Hours Test 12/19/16 11:25 12/19/16 13:00 12/19/16 13:23 Range/Units White Blood Count 12.33 4.8-10.8 K/uL Red Blood Count 4.46 4.2-5.4 M/uL Hemoglobin 12.7 12.0-16.0 g/dL Hematocrit 38.7 37-47 % Mean Corpuscular Volume 86.8 80-100 fL Mean Corpuscular Hemoglobin 28.5 25-34 pg Mean Corpuscular Hemoglobin Concent 32.8 32-36 g/dl Platelet Count 276 130-400 K/uL Mean Platelet Volume 10.2 7.4-10.4 fL Neutrophils (%) (Auto) 80.2 % Lymphocytes (%) (Auto) 16.0 % Monocytes (%) (Auto) 3.4 % Eosinophils (%) (Auto) 0.0 % Basophils (%) (Auto) 0.2 % Neutrophils # (Auto) 9.89 1.4-6.5 K/uL Lymphocytes # (Auto) 1.97 1.2-3.4 K/uL Monocytes # (Auto) 0.42 0.11-0.59 K/uL Eosinophils # (Auto) 0.00 0-0.5 K/uL Basophils # (Auto) 0.02 0-0.2 K/uL RDW Standard Deviation 41.4 36.4-46.3 fL RDW Coefficient of Variation 12.9 11.5-14.5 % Immature Granulocyte % (Auto) 0.2 % Immature Granulocyte # (Auto) 0.03 0.00-0.02 K/uL Sodium Level 138 136-145 mmol/L Potassium Level 3.9 3.5-5.1 mmol/L Chloride Level 98 98-107 mmol/L Carbon Dioxide Level 29 21-32 mmol/L Anion Gap 11.0 3-11 mmol/L Blood Urea Nitrogen 18 7-18 mg/dl Creatinine 1.40 0.60-1.20 mg/dl Est Creatinine Clear Calc Drug Dose 43.5 ml/min Estimated GFR () 46.2 Estimated GFR (Non- 39.9 BUN/Creatinine Ratio 13.0 10-20 Random Glucose 316 70-99 mg/dl Calcium Level 9.4 8.5-10.1 mg/dl Total Bilirubin 0.5 0.2-1 mg/dl Direct Bilirubin 0.2 0-0.2 mg/dl Aspartate Amino Transf (AST/SGOT) 10 15-37 U/L Alanine Aminotransferase (ALT/SGPT) 17 12-78 U/L Alkaline Phosphatase 59 45-117 U/L Total Protein 9.0 6.4-8.2 gm/dl Albumin 3.7 3.4-5.0 gm/dl Lipase 111 73-393 U/L Beta-Hydroxybutyric Acid 4.80 0.2-2.81 mg/dL Troponin I < 0.015 0-0.045 ng/ml Bedside Glucose 298 70-90 mg/dl Diagnostic Radiology HEAD CT NONCONTRAST Impression: No acute intracranial abnormality. CLINICAL HISTORY: Abdominal pain IMPRESSION: No evidence of bowel obstruction. No evidence of free air. EKG NSR, nonspecific T wave inversion in V3 Impression Assessment and Plan NAUSEA/ VOMITING Unclear etiology- ddx includes diabetic gastroparesis?, no evidence of obstruction or free air on x-ray, LFT's and lipase WNL H/o C diff in Aug 2016, however no diarrhea at present; admitted September 2016 for abdominal pain ? colitis- C. diff neg at that time, seen by GI Clear liquid diet for now PRN Zofran IV fluids SABRINA ON CKD STAGE III Likely prerenal from dehydration due to GI loss Creat is increased to 1.4 from baseline 1.1 Hold lisinopril for now IV fluids Monitor renal function DM TYPE 2 Uncontrolled- last A1c 8.5 09/06/16 Hyperglycemic in ER due to missing home insulin- IV insulin given Will decrease basal Lantus due to poor PO intake Novolog sliding scale HYPERTENSION BP elevated in ER- due to missed home medications Given lisinopril 10 mg in ER Hold lisinopril for SABRINA Will continue metoprolol and Imdur Monitor BP CAD S/P CABG AND PCI Stable, no anginal symptoms Continue aspirin, Plavix, beta clyde, statin, Imdur DEPRESSION Mood stable per patient, flat affect noted Continue home meds ASTHMA Not in exacerbation Continue home inhalers H/O VF S/P ICD Stable, in NSR ADRENAL CYST Continue outpatient surveillance with [facility] [place] DVT PROPHYLAXIS Heparin SQ FULL CODE DISPOSITION Lives at home w/ sister, has aides in the home, will consult PT/ OT for ambulatory dysfunction Follows with Dr. Ramirez for primary care Patient seen in collaboration with Dr. Lesley Redmond. Please see her addendum. VTE Prophylaxis VTE Risk Assessment Done? Y/N: Yes Risk Level: Moderate
[2016-12-19] MEDS ORDERED: LSN5 PO (17:05)
--- NOTE | 2016-12-19 17:17 | EMERGENCY ROOM VISIT NOTE ---
History Report prepared by Melanie: Dacia Rush Under the Supervision of: Dr. Adeel Thao M.D. First contact with patient: 09:49 Chief Complaint: NAUSEA Stated Complaint: NAUSEA History of Present Illness The patient is a 61 year old female who presents to the Emergency Room with complaints of constant abdominal pain beginning a "couple of months" ago. The patient states that her pain is in the center of her abdomen and it is the same pain that she has been having over the last few months. She describes her pain and states that it feels like someone is punching her. She reports that she was seen here in November for abdominal pain and states that she was told that she has a tumor near her kidney. The patient notes that this time she is vomiting more frequently than she usually does with her abdominal pain. She states that she had an episode of a a fall 5 days ago after her aid let her go when she was assisting her while she walked. She notes that she fell onto her buttock and may have hit her head. She states she did not fall onto her abdomen. The patient complains of sweating and a headache. She denies any known fever, diarrhea, blood in the stool, urinary symptoms, and loss of consciousness. The patient states that her last bowel movement was last night and it was normal. She notes that she did not take any of her medications today because of nausea. She did take a Zofran ODT. She reports that she has some difficulty with her memory which is normal for her. Source of History: patient Onset: a couple of months ago Position: abdomen Quality: other ("like someone is punching me") Timing: constant Associated Symptoms: + headache, + vomiting, No LOC, No fevers, No diarrhea , No urinary symptoms Note: She denies any known blood in the stool. Review of Systems See HPI for pertinent positives & negatives. A total of 10 systems reviewed and were otherwise negative. Past Medical & Surgical Medical Problems: (1) Abdominal pain (2) SABRINA (acute kidney injury) (3) Ambulatory dysfunction (4) Aortocoronary Bypass (5) Asthma, Unspecified (6) CKD (chronic kidney disease), stage III (7) Coronary atherosclerosis of [place] coronary vessel (8) Depression (9) Diab Nany Wo Compl, Type Ii Or Unspec Type, Not Uncntrld (10) Diabetic nephropathy (11) Diabetic retinopathy (12) GERD (gastroesophageal reflux disease) (13) Hypertension Nos (14) Neuropathy in diabetes (15) Obesity, Class II, BMI 35-39.9, with comorbidity (16) Obstructive Sleep Apnea (Adult) (Pediatric) (17) Osteoarthritis (18) Pacemaker (19) Polymyalgia rheumatica (20) Presence of combination internal cardiac defibrillator (ICD) and pacemaker (21) Pure Hypercholesterolem (22) Ventricular fibrillation Surgical Problems: (1) H/O eye surgery (2) History of appendectomy (3) History of cholecystectomy (4) History of hysterectomy (5) History of hysterectomy (6) S/P triple vessel bypass Social History Problems: (1) Diabetes mellitus Family History Diabetes mellitus FATHER BROTHER FH: cancer FH: lung disease FHx: heart disease MOTHER Hypertension MOTHER Kidney disease Kidney stones Social History Smoking Status: Former Smoker Alcohol Use: occasionally Drug Use: none Marital Status: Housing Status: lives alone Occupation Status: disabled Current/Historical Medications Scheduled Aspirin (Aspirin Ec), 81 MG PO QAM Atorvastatin (Atorvastatin Calcium), 40 MG PO DAILY Calcium Carbonate-Cholecalcife (Caltrate 600+D), 1 TABLET PO BID Clopidogrel Bisulfate (Plavix), 75 MG PO HS Docusate Sodium (Docusate Sodium), 100 MG PO BID Escitalopram Oxalate (Lexapro), 15 MG PO QAM Hydroxyzine Hcl (Atarax), 25 MG PO HS Insulin Aspart (Novolog Flexpen), 30 UNITS SC AC Insulin Glargine (Lantus Solostar), 30 UNITS SC AMPM Isosorbide Mononitrate Ext Rel (Imdur Ext Rel), 90 MG PO DAILY Lactobacillus (Floranex), 1 TAB PO DAILY Lisinopril (Lisinopril), 15 MG PO QAM Magnesium Chloride (Mag64), 1 TAB PO TID Metoprolol Succinate (Metoprolol Succinate ER), 50 MG PO BID Multivitamins/Minerals (Mvi With Minerals), 1 TABLET PO QAM Pantoprazole (Protonix), 40 MG PO BID Sennosides-Docusate Sodium (Senna Plus), 1 TAB PO HS Scheduled PRN Albuterol Sulfate (Proair Respiclick), 2 PUFFS INH Q4H PRN for Wheezing Lorazepam (Ativan), 0.5 MG PO TID PRN for Anxiety Nitroglycerin (Nitrostat), 0.4 MG UT UD PRN for Chest Pain Allergies Coded Allergies: BEE STING (Verified Allergy, Severe, SWELLING, 11/27/16) Lidocaine (Verified Allergy, Severe, ANAPHYLAXIS, 11/27/16) Morphine (Verified Allergy, Mild, itching, 11/27/16) Tramadol (Verified Allergy, Mild, ITCHING, 11/27/16) Trazodone (Verified Allergy, Mild, ITCHING, 11/27/16) Physical Exam Vital Signs Date Time Temp Pulse Resp B/P (MAP) Pulse Ox O2 Delivery O2 Flow Rate FiO2 12/19/16 15:02 185/81 12/19/16 14:51 91 0 96 12/19/16 14:46 90 20 180/83 100 Room Air 12/19/16 14:46 180/83 12/19/16 14:32 197/102 12/19/16 14:21 90 0 98 12/19/16 14:02 90 20 187/98 97 12/19/16 14:02 185/108 12/19/16 13:56 187/98 12/19/16 13:33 90 12/19/16 13:33 227/93 12/19/16 13:26 114/93 12/19/16 13:21 88 14 99 12/19/16 13:20 88 18 114/93 99 Room Air 12/19/16 12:51 89 15 95 12/19/16 12:44 92 12 202/98 100 Room Air 12/19/16 12:44 202/98 12/19/16 12:32 188/116 12/19/16 12:21 93 11 99 12/19/16 12:02 194/83 12/19/16 11:51 85 20 96 12/19/16 11:32 174/75 12/19/16 11:30 85 20 189/86 96 Room Air 12/19/16 11:30 189/86 12/19/16 10:21 87 12 99 12/19/16 10:16 89 18 191/82 100 Room Air 12/19/16 10:15 191/82 12/19/16 09:51 85 0 12/19/16 09:30 36.9 88 16 191/163 100 Room Air 12/19/16 09:24 196/163 Physical Exam Constitutional: Vital signs reviewed. Eyes: Pupils are equal round reactive to light. Conjunctiva are noninjected. ENT: Pharynx is clear without erythema or exudate. Mucous membranes are moist. Neck supple without meningeal signs. Respiratory: Clear to auscultation bilaterally. Breath sounds are equal bilaterally. Cardiovascular: Regular rate and rhythm. No rubs or gallops. GI: Soft, nondistended. Bowel sounds are present. Diffuse abdominal tenderness , no guarding. Musculoskeletal: No peripheral edema. No lower extremity tenderness. Integumentary: No cyanosis. Neurological: The patient is awake and alert. No focal deficits. Psychiatric: Normal affect. Medical Decision & Procedures ER Provider Diagnostic Interpretation: Radiology results as stated below per my review and the radiologist's interpretation: HEAD CT NONCONTRAST Findings: The paranasal sinuses and mastoid air cells are clear. The calvarium and skull base are intact. The ventricles and sulci are within normal limits. There is no mass, hematoma, midline shift, or acute infarct. Impression: No acute intracranial abnormality. Electronically signed by: James Nickerson M.D. 12/19/2016 11:04 AM Dictated Date/Time: 12/19/2016 11:02 AM ABDOMEN 2VIEW W/PA CHEST RTN FINDINGS: There are postsurgical changes of a midline sternotomy. The heart is normal in size. There is a left subclavian pacer/defibrillator present. There is no focal pulmonary consolidation. There is no free intraperitoneal air. Erect and supine views the abdomen reveal no abnormally dilated loops of large or small bowel. There are no transition zones indicate bowel obstruction. Right upper quadrant surgical clips, are consistent with a prior cholecystectomy. Nonspecific pelvic basin calcifications remain stable, and therefore likely represent phleboliths. IMPRESSION: No evidence of bowel obstruction. No evidence of free air. Electronically signed by: Chau Meyers M.D. 12/19/2016 11:21 AM Dictated Date/Time: 12/19/2016 11:19 AM Laboratory Results 12/19/16 11:25 Red Blood Count 4.46, Mean Corpuscular Volume 86.8, Mean Corpuscular Hemoglobin 28.5, Mean Corpuscular Hemoglobin Concent 32.8, Mean Platelet Volume 10.2, Neutrophils (%) (Auto) 80.2, Lymphocytes (%) (Auto) 16.0, Monocytes (%) (Auto) 3.4, Eosinophils (%) (Auto) 0.0, Basophils (%) (Auto) 0.2, Neutrophils # (Auto) 9.89, Lymphocytes # (Auto) 1.97, Monocytes # (Auto) 0.42, Eosinophils # (Auto) 0.00, Basophils # (Auto) 0.02 12/19/16 11:25 Test 12/19/16 11:25 12/19/16 13:00 12/19/16 13:23 White Blood Count 12.33 K/uL (4.8-10.8) Red Blood Count 4.46 M/uL (4.2-5.4) Hemoglobin 12.7 g/dL (12.0-16.0) Hematocrit 38.7 % (37-47) Mean Corpuscular Volume 86.8 fL (80-100) Mean Corpuscular Hemoglobin 28.5 pg (25-34) Mean Corpuscular Hemoglobin Concent 32.8 g/dl (32-36) Platelet Count 276 K/uL (130-400) Mean Platelet Volume 10.2 fL (7.4-10.4) Neutrophils (%) (Auto) 80.2 % Lymphocytes (%) (Auto) 16.0 % Monocytes (%) (Auto) 3.4 % Eosinophils (%) (Auto) 0.0 % Basophils (%) (Auto) 0.2 % Neutrophils # (Auto) 9.89 K/uL (1.4-6.5) Lymphocytes # (Auto) 1.97 K/uL (1.2-3.4) Monocytes # (Auto) 0.42 K/uL (0.11-0.59) Eosinophils # (Auto) 0.00 K/uL (0-0.5) Basophils # (Auto) 0.02 K/uL (0-0.2) RDW Standard Deviation 41.4 fL (36.4-46.3) RDW Coefficient of Variation 12.9 % (11.5-14.5) Immature Granulocyte % (Auto) 0.2 % Immature Granulocyte # (Auto) 0.03 K/uL (0.00-0.02) Anion Gap 11.0 mmol/L (3-11) Est Creatinine Clear Calc Drug Dose 43.5 ml/min Estimated GFR () 46.2 Estimated GFR (Non- 39.9 BUN/Creatinine Ratio 13.0 (10-20) Calcium Level 9.4 mg/dl (8.5-10.1) Total Bilirubin 0.5 mg/dl (0.2-1) Direct Bilirubin 0.2 mg/dl (0-0.2) Aspartate Amino Transf (AST/SGOT) 10 U/L (15-37) Alanine Aminotransferase (ALT/SGPT) 17 U/L (12-78) Alkaline Phosphatase 59 U/L (45-117) Total Protein 9.0 gm/dl (6.4-8.2) Albumin 3.7 gm/dl (3.4-5.0) Lipase 111 U/L (73-393) Beta-Hydroxybutyric Acid 4.80 mg/dL (0.2-2.81) Troponin I < 0.015 ng/ml (0-0.045) Bedside Glucose 298 mg/dl (70-90) Laboratory results as reviewed by me. Medications Administered Medications (Trade) Dose Ordered Sig/Tera Route Start Time Stop Time Status Last Admin Dose Admin Promethazine HCl 12.5 mg/Sodium Chloride 50.5 ml @ 204 mls/hr NOW STAT IV 12/19/16 10:00 12/19/16 10:14 DC 12/19/16 10:00 204 MLS/HR Lisinopril (Zestril Tab) 10 mg NOW ONCE PO 12/19/16 12:15 12/19/16 12:16 DC 12/19/16 12:17 10 MG Sodium Chloride 500 ml @ 999 mls/hr Q31M STAT IV 12/19/16 12:15 12/19/16 12:45 DC 12/19/16 12:15 999 MLS/HR Insulin Human Regular (novoLIN-R U-100 PER UNIT) 6 units NOW STAT IV 12/19/16 12:15 12/19/16 12:17 DC 12/19/16 12:24 6 UNITS ED Course 0949: The patient was evaluated in room B4. A complete history and physical exam was performed. 1000: Promethazine HCl 12.5mg / Sodium Chloride 50.5ml @ 204mls/hr IV. 1203: I reevaluated the patient and she states that her nausea is better. She is still hypertensive. 1215: Lisinopril 10mg PO, Insulin Human Regular 6 units IV, Sodium Chloride 500 ml @ 999 mls/hr IV. 1401: I reevaluated the patient. She was able to take a sip of flaquita tiffanie and she feels dizzy. The nurse notes that her blood sugar is 280 on recheck. 1503: I reevaluated the patient. She feels too dizzy and weak to go home. She is still unable to take PO and is requesting admission. 1510: I spoke with Dr. Redmond of [facility]. We discussed the patient and her results. The patient will be further evaluated by Dr. Redmond. Medical Decision This is a 61-year-old female presents with abdominal pain and headache. Differential diagnosis includes chronic abdominal pain, obstruction, constipation, impaction, intracranial hemorrhage, contusion. I did perform a limited focused review of portions of the patient's old chart on the electronic medical record. The patient was seen here November 27 for abdominal pain and vomiting. She has a prior history of abdominal issues and was admitted previously for chronic constipation. She had a CT scan which showed no evidence of obstruction or free air. She had fecal retention and was discharged home. Medication Reconciliation: I attest that I have personally reviewed the patient' s current medication list. Blood Pressure Screening: Patient was found to have an elevated blood pressure and was referred to their primary doctor for recheck and further treatment. I did evaluate the patient as noted above. The patient is presenting with an exacerbation of a chronic abdominal pain. She states that she has worsening vomiting with it and can't keep anything down. She took Zofran at home. She also had a fall recently and complains of a headache. IV access was established. 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 I did order and personally review the patient's 12-lead EKG and abdominal/chest x- rays as described above. There is no evidence of acute obstruction. I did order and review the patient's blood work as noted in the electronic medical record. Her white blood cell count is slightly elevated which may be secondary to vomiting. Troponin is negative. Her sugar is elevated. I did treat her with normal saline IV. She was also given Phenergan IV for her nausea. I did give her insulin IV as well. I did discuss the test results with the patient. I did attempt to give her liquids but she was unable to eat and complained of lightheadedness and did not feel she could go home. I did discuss the case with the hospitalist and case management coordinator. Consults Time Called: 1505 Consulting Physician: Dr. Ruy Andre Returned Call: [address] Redmond of [facility]. We discussed the patient and her results. The patient will be further evaluated by Dr. Redmond. Impression Primary Impression: Intractable nausea and vomiting Additional Impressions: Dizziness Chronic abdominal pain Hyperglycemia Scribe Attestation The scribe's documentation has been prepared under my direct and personally reviewed by me in its entirety. I confirm that the note above accurately reflects all work, treatment, procedures, and medical decision making performed by me. Departure Information Dispostion Being Evaluated By Hospitalist Referrals Reginaldo Ramirez, DJackOJack (PCP) Patient Instructions My [facility] Problem Qualifiers Primary Impression: Intractable nausea and vomiting Vomiting type: unspecified Qualified Codes: R11.2 - Nausea with vomiting, unspecified
[2016-12-19 17:56] LABS: PROTHROMBIN TIME (PATIENT) 10.6 SECONDS (9.0-12.0)
[2016-12-19] MEDS: SODIUM CHLORIDE 0.9% 1000ML 1,000 ML IV SCH (18:07)
[2016-12-19 19:00] VITALS: BP 169/72; PULSE 84; TEMP 36.7; O2SAT 95; BMI 34.7
[2016-12-19] MEDS: PANTOprazole SOD 40 MG TAB PO SCH (20:54)
[2016-12-19] MEDS: DOCUSATE SODIUM 100 MG CAP PO SCH (20:54)
[2016-12-19] MEDS: MAGNESIUM CHLORIDE 64MG DELAYED REL TAB PO SCH (20:55)
[2016-12-19] MEDS: CLOPIDOGREL BISULFATE 75 MG TAB PO SCH (20:55)
[2016-12-19] MEDS: METOPROLOL SUCC 50MG EXT REL TAB PO SCH (20:55)
[2016-12-19] MEDS: DOCUSATE SODIUM/SENNA 50/8.6MG TAB PO SCH (20:55)
[2016-12-19] MEDS: hydrOXYzine HCL 25 MG TAB PO SCH (20:56)
[2016-12-19] MEDS: INSULIN GLARGINE SOLOSTAR 100 UNITS/ML 3 ML PEN SC SCH (20:58)
[2016-12-19] MEDS: INSULIN ASPART 100 UNITS/ML 3 ML PEN SC SCH (20:59)
[2016-12-19] MEDS: HEPARIN SOD 5000 UNIT/0.5 ML CARP SQ SCH (20:59)
[2016-12-19] MEDS: ONDANSETRON INJ 2 MG/ML 2 ML VIAL IV PRN (23:26)
[2016-12-19] MEDS: ACETAMINOPHEN 325 MG TAB PO PRN (23:27)
[2016-12-19 23:58] VITALS: BP 185/92; PULSE 85; TEMP 37; O2SAT 94
[2016-12-20] MEDS: SODIUM CHLORIDE 0.9% 1000ML 1,000 ML IV SCH ×2 (05:28→18:21)
[2016-12-20] MEDS: HEPARIN SOD 5000 UNIT/0.5 ML CARP SQ SCH ×3 (05:35→21:34)
[2016-12-20] MEDS: ACETAMINOPHEN 325 MG TAB PO PRN (05:40)
[2016-12-20 06:52] LABS: URINE APPEARANCE CLEAR (CLEAR); URINE BILIRUBIN NEG (NEG); URINE COLOR YELLOW; URINE EPITHELIAL CELL AUTO 20-30 /lpf (0-5); URINE NITRITE NEG (NEG); URINE PH 5.5 (4.5-7.5); URINE SPECIFIC GRAVITY 1.023 (1.000-1.030); UROBILINOGEN NEG (NEG)
[2016-12-20 06:57] LABS: MANUAL MICROSCOPIC REQUIRED? NO; REVIEW REQ? NO
[2016-12-20 07:04] LABS: MEAN CELL VOLUME 87.6 fL (80-100); MEAN CORPUSCULAR HEMOGLOBIN 29.3 pg (25-34); MEAN CORPUSCULAR HGB CONC 33.4 g/dl (32-36); MEAN PLATELET VOLUME 10.9 fL (7.4-10.4); PLATELET COUNT 258 K/uL (130-400); RED BLOOD COUNT 4.34 M/uL (4.2-5.4); WHITE BLOOD COUNT 10.73 K/uL (4.8-10.8)
[2016-12-20 07:12] VITALS: BP 186/89; PULSE 69; TEMP 36.8; O2SAT 98
[2016-12-20 07:35] LABS: BUN/CREATININE RATIO 18.2 (10-20); CALCIUM 8.9 mg/dl (8.5-10.1); POTASSIUM 3.9 mmol/L (3.5-5.1)
[2016-12-20 07:36] LABS: ALB/GLOB RATIO 0.7 (0.9-2)
[2016-12-20] MEDS ORDERED: LISINOPRIL 10 MG TAB PO SCH (08:00)
[2016-12-20] MEDS: ONDANSETRON INJ 2 MG/ML 2 ML VIAL IV PRN (08:01)
[2016-12-20] MEDS: CEROVITE ADV FORMULA TAB PO SCH (08:04)
[2016-12-20] MEDS: PANTOprazole SOD 40 MG TAB PO SCH ×2 (08:05→21:19)
[2016-12-20] MEDS: ASPIRIN 81 MG ECTAB PO SCH (08:05)
[2016-12-20] MEDS: ATORVASTATIN 40 MG TAB PO SCH (08:06)
[2016-12-20] MEDS: LACTOBACILLUS ACIDOPHILUS (FLORANEX) TAB PO SCH (08:06)
[2016-12-20] MEDS: DOCUSATE SODIUM 100 MG CAP PO SCH ×2 (08:06→21:19)
[2016-12-20] MEDS: ISOSORBIDE MONONITRATE 30 MG TABCR PO SCH (08:07)
[2016-12-20] MEDS: ESCITALOPRAM OXALATE 10 MG TAB PO SCH (08:08)
[2016-12-20] MEDS: METOPROLOL SUCC 50MG EXT REL TAB PO SCH ×2 (08:09→21:20)
[2016-12-20] MEDS: MAGNESIUM CHLORIDE 64MG DELAYED REL TAB PO SCH ×3 (08:09→21:19)
[2016-12-20] MEDS: INSULIN ASPART 100 UNITS/ML 3 ML PEN SC SCH ×4 (09:27→21:35)
[2016-12-20] MEDS: INSULIN GLARGINE SOLOSTAR 100 UNITS/ML 3 ML PEN SC SCH ×2 (09:27→21:34)
[2016-12-20] MEDS ORDERED: NURSING VERBAL MED ORDER ONE (09:45)
[2016-12-20] MEDS ORDERED: ONDANSETRON INJ 2 MG/ML 2 ML VIAL IV ONE (10:00)
[2016-12-20] MEDS: PROMETHAZINE HCL INJ 12.5 MG in SODIUM CHLORIDE 0.9% 50ML 50 ML IV PRN (11:44)
[2016-12-20 11:46] VITALS: BMI 34.7
[2016-12-20 15:23] VITALS: BP 148/78; PULSE 65; TEMP 36.9; O2SAT 98
--- NOTE | 2016-12-20 15:59 | Progress Note ---
Medicine Progress Note Date & Time of Visit: Dec 20, 2016 at 15:44. Subjective Pt was seen and examined Lying in bed complaint of nausea Pt said that she continues to feel nauseated She said that the zofran does not help much with the nausea she said that she continue to have abdominal pain that seems to improve with the pain med denies any chest pain, palpitation, dizziness and SOB Objective Last 8 Hrs Date Time Temp Pulse Resp B/P (MAP) Pulse Ox O2 Delivery O2 Flow Rate FiO2 12/20/16 15:23 36.9 65 20 148/78 (101) 98 Room Air 12/20/16 08:00 Room Air Physical Exam: General- no acute distress Head- atraumatic Eyes- PERRL, EOMI ENT- oropharynx clear Neck- supple, no JVD Lungs- clear to auscultation Heart- regular rhythm; no murmur Abdomen- normal bowel sounds, soft, +tenderness Extremities- no calf tenderness Neuro- alert, oriented x 3; PERRL, EOMI Skin- warm & dry Laboratory Results: Last 24 Hours Test 12/19/16 20:18 12/20/16 05:30 12/20/16 06:32 12/20/16 07:35 Bedside Glucose 283 mg/dl 233 mg/dl Urine Color YELLOW Urine Appearance CLEAR Urine pH 5.5 Urine Specific [place] 1.023 Urine Protein TRACE Urine Glucose (UA) 3+ Urine Ketones TRACE Urine Occult Blood NEG Urine Nitrite NEG Urine Bilirubin NEG Urine Urobilinogen NEG Urine Leukocyte Esterase NEG Urine WBC (Auto) 1-5 /hpf Urine RBC (Auto) 0-4 /hpf Urine Hyaline Casts (Auto) 1-5 /lpf Urine Epithelial Cells (Auto) 20-30 /lpf Urine Bacteria (Auto) 2+ White Blood Count 10.73 K/uL Red Blood Count 4.34 M/uL Hemoglobin 12.7 g/dL Hematocrit 38.0 % Mean Corpuscular Volume 87.6 fL Mean Corpuscular Hemoglobin 29.3 pg Mean Corpuscular Hemoglobin Concent 33.4 g/dl RDW Standard Deviation 42.1 fL RDW Coefficient of Variation 13.2 % Platelet Count 258 K/uL Mean Platelet Volume 10.9 fL Sodium Level 139 mmol/L Potassium Level 3.9 mmol/L Chloride Level 102 mmol/L Carbon Dioxide Level 27 mmol/L Anion Gap 10.0 mmol/L Blood Urea Nitrogen 18 mg/dl Creatinine 1.00 mg/dl Est Creatinine Clear Calc Drug Dose 60.9 ml/min Estimated GFR () 69.4 Estimated GFR (Non- 59.9 BUN/Creatinine Ratio 18.2 Random Glucose 240 mg/dl Calcium Level 8.9 mg/dl Magnesium Level 2.0 mg/dl Total Bilirubin 0.6 mg/dl Aspartate Amino Transf (AST/SGOT) 10 U/L Alanine Aminotransferase (ALT/SGPT) 15 U/L Alkaline Phosphatase 55 U/L Total Protein 8.3 gm/dl Albumin 3.4 gm/dl Globulin 4.9 gm/dl Albumin/Globulin Ratio 0.7 Hepatitis C Antibody Screen NEG Test 12/20/16 11:33 Bedside Glucose 234 mg/dl Assessment & Plan NAUSEA/ VOMITING/Abdominal pain Unknown etiology Possible related to diabetic gastroparesis CT abd/pelvis showed no acute intracranial abnormality. Abdominal xray showed no evidence of obstruction On Clear liquid diet for now Zofran changed to Phenergan Continue pain control IV fluids SABRINA ON CKD STAGE III Creat is increased to 1.4 from baseline 1.1 Creatine 1.1 today Lisinopril on hold IV fluids Monitor BMP resolved DM TYPE 2 Uncontrolled- last A1c 8.5 09/06/16 On Insulin sliding scale Continue monitor BS HYPERTENSION BP elevated Possible attributed to pain Lisinopril on hold Continue metoprolol and Imdur Will add prn hydralazine for SBP above 170 Monitor BP CAD S/P CABG AND PCI Asymptomatic Continue aspirin, Plavix, beta clyde, statin, Imdur Stable DEPRESSION Continue current home med stable ASTHMA Not in exacerbation Stable H/O VF S/P ICD Stable, in NSR ADRENAL CYST Continue outpatient surveillance with [facility] DVT PROPHYLAXIS Heparin SQ CODE STATUS FULL CODE Current Inpatient Medications: Current Inpatient Medications Medications (Trade) Dose Ordered Sig/Tera Route Start Time Stop Time Status Last Admin Dose Admin Aspirin (Ecotrin Tab) 81 mg QAM PO 12/20/16 08:00 01/19/17 08:59 12/20/16 08:05 81 MG Atorvastatin Calcium (Lipitor Tab) 40 mg DAILY PO 12/20/16 08:00 01/19/17 08:59 12/20/16 08:06 40 MG Clopidogrel Bisulfate (plAVix TAB) 75 mg HS PO 12/19/16 21:00 7/7/17 20:59 12/19/16 20:55 75 MG Docusate Sodium (coLACE CAP) 100 mg BID PO 12/19/16 20:00 01/18/17 20:59 12/20/16 08:06 100 MG Escitalopram Oxalate (Lexapro Tab) 15 mg QAM PO 12/20/16 08:00 01/19/17 08:59 12/20/16 08:08 15 MG Hydroxyzine HCl (Vistaril Tab) 25 mg HS PO 12/19/16 21:00 01/18/17 20:59 12/19/16 20:56 25 MG Insulin Glargine (Lantus Solostar Pen) 20 unit BID SC 12/19/16 20:00 01/18/17 20:59 12/20/16 09:27 20 UNIT Isosorbide Mononitrate (Imdur Ext Rel Tab) 90 mg DAILY PO 12/20/16 08:00 01/19/17 08:59 12/20/16 08:07 90 MG Lactobacillus Acidophilus (Floranex Tab) 1 tab DAILY PO 12/20/16 08:00 01/19/17 08:59 12/20/16 08:06 1 TAB Lorazepam (Ativan Tab) 0.5 mg TID PRN PO 12/19/16 15:15 01/18/17 15:14 12/19/16 23:26 0.5 MG Magnesium Chloride (Slow-Mag Tab) 64 mg TID PO 12/19/16 20:00 01/18/17 20:59 12/20/16 14:20 64 MG Metoprolol Succinate (Toprol Xl Tab) 50 mg BID PO 12/19/16 20:00 01/18/17 20:59 12/20/16 08:09 50 MG Multivitamins/ Minerals (Multivitamin W/ Minerals Tab) 1 tab QAM PO 12/20/16 08:00 01/19/17 08:59 12/20/16 08:04 1 TAB Nitroglycerin (Nitrostat Tab) 0.4 mg UD PRN UT 12/19/16 15:15 01/18/17 15:14 Pantoprazole Sodium (Protonix Tab) 40 mg BID PO 12/19/16 20:00 01/18/17 20:59 12/20/16 08:05 40 MG Senna/Docusate Sodium (Senokot S Tab) 1 tab HS PO 12/19/16 21:00 01/18/17 20:59 12/19/16 20:55 1 TAB Albuterol (Ventolin Hfa Inhaler) 2 puffs Q4H PRN INH 12/19/16 17:00 01/18/17 16:59 Heparin Sodium (Porcine) (Heparin Sq 5000 Unit/0.5ml) 5,000 unit Q8H SQ 12/19/16 22:00 01/18/17 21:59 12/20/16 14:20 5,000 UNIT Acetaminophen (Tylenol Tab) 650 mg Q4H PRN PO 12/19/16 15:30 01/18/17 15:29 12/20/16 05:40 650 MG Magnesium Hydroxide (Milk Of Magnesia Susp) 30 ml Q6H PRN PO 12/19/16 15:30 01/18/17 15:29 Polyethylene (Miralax Powder Packet) 17 gm DAILY PRN PO 12/19/16 15:30 01/18/17 15:29 Ondansetron HCl (Zofran Inj) 4 mg Q6H PRN IV 12/19/16 15:30 01/18/17 15:29 12/20/16 08:01 4 MG Insulin Aspart (novoLOG ASPART) SLIDING SCALE If C... ACHS SC 12/19/16 21:00 01/18/17 20:59 12/20/16 12:49 3 UNITS Glucose (Glucose 40% Gel) 15-30 GRAMS 15 GRAMS... UD PRN PO 12/19/16 15:30 01/18/17 15:29 Glucose (Glucose Chew Tab) 4-8 Tablets 4 Tabl... UD PRN PO 12/19/16 15:30 01/18/17 15:29 Dextrose (Dextrose 50% 50ML Syringe) 25-50ML OF 50% DW IV FOR... UD PRN IV 12/19/16 15:30 01/18/17 15:29 Glucagon (Glucagon Inj) 1 mg UD PRN SQ 12/19/16 15:30 01/18/17 15:29 Sodium Chloride 1,000 ml @ 80 mls/hr [id number] IV 12/19/16 17:15 01/18/17 17:14 12/20/16 05:28 80 MLS/HR Promethazine HCl 12.5 mg/Sodium Chloride 50.5 ml @ 204 mls/hr Q6H PRN IV 12/20/16 11:30 01/19/17 11:29 12/20/16 11:44 204 MLS/HR
[2016-12-20] MEDS: hydrOXYzine HCL 25 MG TAB PO SCH (21:21)
[2016-12-20] MEDS: CLOPIDOGREL BISULFATE 75 MG TAB PO SCH (21:21)
[2016-12-20] MEDS: DOCUSATE SODIUM/SENNA 50/8.6MG TAB PO SCH (21:22)
[2016-12-20 23:32] VITALS: BP 182/87; PULSE 66; TEMP 36.9; O2SAT 97
[2016-12-20 23:48] VITALS: BP 189/81; PULSE 67
[2016-12-21] VITALS (8 sets, daily range): BP systolic 136–180; BP diastolic 72–90; PULSE 60–96; TEMP 36.2–36.8; O2SAT 96–99; Ht 160 cm; Wt 88.9 kg
[2016-12-21] MEDS ORDERED: NURSING VERBAL MED ORDER ONE
[2016-12-21] MEDS ORDERED: HydrALAZINE HCL 20 MG/ML VIAL IV. ONE (00:15)
[2016-12-21] MEDS: PROMETHAZINE HCL INJ 12.5 MG in SODIUM CHLORIDE 0.9% 50ML 50 ML IV PRN ×2 (00:20→10:12)
[2016-12-21] MEDS: HEPARIN SOD 5000 UNIT/0.5 ML CARP SQ SCH ×3 (06:41→21:56)
[2016-12-21] MEDS: SODIUM CHLORIDE 0.9% 1000ML 1,000 ML IV SCH (07:19)
[2016-12-21] MEDS: PANTOprazole SOD 40 MG TAB PO SCH ×2 (07:44→21:41)
[2016-12-21] MEDS: CEROVITE ADV FORMULA TAB PO SCH (07:45)
[2016-12-21] MEDS: ISOSORBIDE MONONITRATE 30 MG TABCR PO SCH (07:45)
[2016-12-21] MEDS: DOCUSATE SODIUM 100 MG CAP PO SCH ×2 (07:45→21:42)
[2016-12-21] MEDS: LACTOBACILLUS ACIDOPHILUS (FLORANEX) TAB PO SCH (07:45)
[2016-12-21] MEDS: MAGNESIUM CHLORIDE 64MG DELAYED REL TAB PO SCH ×3 (07:45→21:41)
[2016-12-21] MEDS: ESCITALOPRAM OXALATE 10 MG TAB PO SCH (07:45)
[2016-12-21] MEDS: ATORVASTATIN 40 MG TAB PO SCH (07:46)
[2016-12-21] MEDS: ASPIRIN 81 MG ECTAB PO SCH (07:46)
[2016-12-21] MEDS: METOPROLOL SUCC 50MG EXT REL TAB PO SCH ×2 (07:46→21:40)
[2016-12-21 08:20] LABS: BUN/CREATININE RATIO 15.8 (10-20); POTASSIUM 3.7 mmol/L (3.5-5.1)
[2016-12-21 08:26] LABS: HEMATOCRIT 38.6 % (37-47); MEAN CELL VOLUME 86.5 fL (80-100); MEAN CORPUSCULAR HEMOGLOBIN 28.9 pg (25-34); MEAN CORPUSCULAR HGB CONC 33.4 g/dl (32-36); MEAN PLATELET VOLUME 10.5 fL (7.4-10.4); PLATELET COUNT 269 K/uL (130-400); RED BLOOD COUNT 4.46 M/uL (4.2-5.4); WHITE BLOOD COUNT 10.31 K/uL (4.8-10.8)
[2016-12-21] MEDS: INSULIN ASPART 100 UNITS/ML 3 ML PEN SC SCH ×4 (08:53→21:55)
[2016-12-21] MEDS: INSULIN GLARGINE SOLOSTAR 100 UNITS/ML 3 ML PEN SC SCH ×2 (08:54→21:55)
[2016-12-21] MEDS: HydrALAZINE HCL 20 MG/ML VIAL IV. PRN (09:06)
[2016-12-21] MEDS ORDERED: LISINOPRIL 10 MG TAB PO ONE (09:49)
--- NOTE | 2016-12-21 19:40 | Progress Note ---
Medicine Progress Note Date & Time of Visit: Dec 21, 2016 at 19:34. Subjective Pt was seen and examined Lying in bed with no distress seems to be confused on/off Pt said that her nausea and abdominal pain improved she has not had any nausea denies any chest pain, palpitation, dizziness and sob Objective Last 8 Hrs Date Time Temp Pulse Resp B/P (MAP) Pulse Ox O2 Delivery O2 Flow Rate FiO2 12/21/16 15:23 91 99 12/21/16 15:17 36.3 96 18 161/72 (101) 98 Room Air Physical Exam: General- no acute distress Head- atraumatic Eyes- PERRL, EOMI ENT- oropharynx clear Neck- supple, no JVD Lungs- clear to auscultation Heart- regular rhythm; no murmur Abdomen- normal bowel sounds, soft, +tenderness Extremities- no calf tenderness Neuro- alert, oriented x 3; PERRL, EOMI Skin- warm & dry Laboratory Results: Last 24 Hours Test 12/20/16 20:13 12/21/16 06:27 12/21/16 07:40 12/21/16 07:43 Bedside Glucose 212 mg/dl 170 mg/dl 200 mg/dl White Blood Count 10.31 K/uL Red Blood Count 4.46 M/uL Hemoglobin 12.9 g/dL Hematocrit 38.6 % Mean Corpuscular Volume 86.5 fL Mean Corpuscular Hemoglobin 28.9 pg Mean Corpuscular Hemoglobin Concent 33.4 g/dl RDW Standard Deviation 41.8 fL RDW Coefficient of Variation 13.0 % Platelet Count 269 K/uL Mean Platelet Volume 10.5 fL Sodium Level 138 mmol/L Potassium Level 3.7 mmol/L Chloride Level 101 mmol/L Carbon Dioxide Level 30 mmol/L Anion Gap 7.0 mmol/L Blood Urea Nitrogen 16 mg/dl Creatinine 1.00 mg/dl Est Creatinine Clear Calc Drug Dose 60.9 ml/min Estimated GFR () 69.4 Estimated GFR (Non- 59.9 BUN/Creatinine Ratio 15.8 Random Glucose 191 mg/dl Calcium Level 9.0 mg/dl Test 12/21/16 11:35 12/21/16 16:31 Bedside Glucose 218 mg/dl 169 mg/dl Assessment & Plan NAUSEA/ VOMITING/Abdominal pain Unknown etiology Possible related to diabetic gastroparesis CT abd/pelvis showed no acute intracranial abnormality. Abdominal xray showed no evidence of obstruction Zofran changed to Phenergan Continue pain control D/C IV fluids Diet increase to full liquid will advance as tolerate clinically improved SABRINA ON CKD STAGE III Creat is increased to 1.4 from baseline 1.1 Creatine 1.1 today D/C IV fluids Monitor BMP resolved DM TYPE 2 Uncontrolled- last A1c 8.5 09/06/16 On Insulin sliding scale Continue monitor BS HYPERTENSION BP elevated Possible attributed to pain Resumed lisinopril Continue metoprolol and Imdur On prn hydralazine for SBP above 170 will titrate BP med Monitor BP CAD S/P CABG AND PCI Asymptomatic Continue aspirin, Plavix, beta clyde, statin, Imdur Stable DEPRESSION Continue current home med stable ASTHMA Not in exacerbation Stable H/O VF S/P ICD Stable, in NSR ADRENAL CYST Continue outpatient surveillance with [facility] [place] DVT PROPHYLAXIS Heparin SQ CODE STATUS FULL CODE Current Inpatient Medications: Current Inpatient Medications Medications (Trade) Dose Ordered Sig/Tera Route Start Time Stop Time Status Last Admin Dose Admin Aspirin (Ecotrin Tab) 81 mg QAM PO 12/20/16 08:00 01/19/17 08:59 12/21/16 07:46 81 MG Atorvastatin Calcium (Lipitor Tab) 40 mg DAILY PO 12/20/16 08:00 01/19/17 08:59 12/21/16 07:46 40 MG Clopidogrel Bisulfate (plAVix TAB) 75 mg HS PO 12/19/16 21:00 01/18/17 20:59 12/20/16 21:21 75 MG Docusate Sodium (coLACE CAP) 100 mg BID PO 12/19/16 20:00 01/18/17 20:59 12/21/16 07:45 100 MG Escitalopram Oxalate (Lexapro Tab) 15 mg QAM PO 12/20/16 08:00 01/19/17 08:59 12/21/16 07:45 15 MG Hydroxyzine HCl (Vistaril Tab) 25 mg HS PO 12/19/16 21:00 01/18/17 20:59 12/20/16 21:21 25 MG Insulin Glargine (Lantus Solostar Pen) 20 unit BID SC 12/19/16 20:00 01/18/17 20:59 12/21/16 08:54 20 UNIT Isosorbide Mononitrate (Imdur Ext Rel Tab) 90 mg DAILY PO 12/20/16 08:00 01/19/17 08:59 12/21/16 07:45 90 MG Lactobacillus Acidophilus (Floranex Tab) 1 tab DAILY PO 12/20/16 08:00 01/19/17 08:59 12/21/16 07:45 1 TAB Lorazepam (Ativan Tab) 0.5 mg TID PRN PO 12/19/16 15:15 01/18/17 15:14 12/19/16 23:26 0.5 MG Magnesium Chloride (Slow-Mag Tab) 64 mg TID PO 12/19/16 20:00 01/18/17 20:59 12/21/16 14:23 64 MG Metoprolol Succinate (Toprol Xl Tab) 50 mg BID PO 12/19/16 20:00 01/18/17 20:59 12/21/16 07:46 50 MG Multivitamins/ Minerals (Multivitamin W/ Minerals Tab) 1 tab QAM PO 12/20/16 08:00 01/19/17 08:59 12/21/16 07:45 1 TAB Nitroglycerin (Nitrostat Tab) 0.4 mg UD PRN UT 12/19/16 15:15 01/18/17 15:14 Pantoprazole Sodium (Protonix Tab) 40 mg BID PO 12/19/16 20:00 01/18/17 20:59 12/21/16 07:44 40 MG Senna/Docusate Sodium (Senokot S Tab) 1 tab HS PO 12/19/16 21:00 01/18/17 20:59 12/20/16 21:22 1 TAB Albuterol (Ventolin Hfa Inhaler) 2 puffs Q4H PRN INH 12/19/16 17:00 01/18/17 16:59 Heparin Sodium (Porcine) (Heparin Sq 5000 Unit/0.5ml) 5,000 unit Q8H SQ 12/19/16 22:00 01/18/17 21:59 12/21/16 14:27 5,000 UNIT Acetaminophen (Tylenol Tab) 650 mg Q4H PRN PO 12/19/16 15:30 01/18/17 15:29 12/20/16 05:40 650 MG Magnesium Hydroxide (Milk Of Magnesia Susp) 30 ml Q6H PRN PO 12/19/16 15:30 01/18/17 15:29 Polyethylene (Miralax Powder Packet) 17 gm DAILY PRN PO 12/19/16 15:30 01/18/17 15:29 Ondansetron HCl (Zofran Inj) 4 mg Q6H PRN IV 12/19/16 15:30 01/18/17 15:29 12/20/16 08:01 4 MG Insulin Aspart (novoLOG ASPART) SLIDING SCALE If C... ACHS SC 12/19/16 21:00 01/18/17 20:59 12/21/16 18:04 10 UNITS Glucose (Glucose 40% Gel) 15-30 GRAMS 15 GRAMS... UD PRN PO 12/19/16 15:30 01/18/17 15:29 Glucose (Glucose Chew Tab) 4-8 Tablets 4 Tabl... UD PRN PO 12/19/16 15:30 01/18/17 15:29 Dextrose (Dextrose 50% 50ML Syringe) 25-50ML OF 50% DW IV FOR... UD PRN IV 12/19/16 15:30 01/18/17 15:29 Glucagon (Glucagon Inj) 1 mg UD PRN SQ 12/19/16 15:30 01/18/17 15:29 Promethazine HCl 12.5 mg/Sodium Chloride 50.5 ml @ 204 mls/hr Q6H PRN IV 12/20/16 11:30 01/19/17 11:29 12/21/16 10:12 204 MLS/HR Hydralazine HCl (HydrALAZINE INJ) 10 mg Q6 PRN IV. 12/21/16 08:00 01/20/17 07:59 12/21/16 09:06 10 MG Lisinopril (Zestril Tab) 15 mg QAM PO 12/22/16 08:00 01/21/17 07:59
[2016-12-21] MEDS: hydrOXYzine HCL 25 MG TAB PO SCH (21:41)
[2016-12-21] MEDS: CLOPIDOGREL BISULFATE 75 MG TAB PO SCH (21:42)
[2016-12-21] MEDS: DOCUSATE SODIUM/SENNA 50/8.6MG TAB PO SCH (21:42)
[2016-12-21] MEDS: MAGNESIUM HYDROXIDE SUSP 30 ML UDC PO PRN (23:36)
[2016-12-22] MEDS: HydrALAZINE HCL 20 MG/ML VIAL IV. PRN ×2 (00:14→05:41)
[2016-12-22 05:38] VITALS: BP 180/93
[2016-12-22] MEDS: MAGNESIUM HYDROXIDE SUSP 30 ML UDC PO PRN (05:40)
[2016-12-22] MEDS: HEPARIN SOD 5000 UNIT/0.5 ML CARP SQ SCH ×2 (05:42→14:16)
[2016-12-22 06:09] LABS: HEMATOCRIT 37.5 % (37-47); MEAN CELL VOLUME 87.2 fL (80-100); MEAN CORPUSCULAR HEMOGLOBIN 28.6 pg (25-34); MEAN CORPUSCULAR HGB CONC 32.8 g/dl (32-36); MEAN PLATELET VOLUME 10.5 fL (7.4-10.4); PLATELET COUNT 284 K/uL (130-400); WHITE BLOOD COUNT 9.98 K/uL (4.8-10.8)
[2016-12-22 06:36] LABS: BUN/CREATININE RATIO 19.8 (10-20); CALCIUM 8.9 mg/dl (8.5-10.1); CREATININE 0.86 mg/dl (0.60-1.20); POTASSIUM 3.9 mmol/L (3.5-5.1)
[2016-12-22 07:35] VITALS: BP 92/48; PULSE 59; TEMP 36.4; O2SAT 92
[2016-12-22] MEDS: METOPROLOL SUCC 50MG EXT REL TAB PO SCH (08:00)
[2016-12-22] MEDS ORDERED: LISINOPRIL 10 MG TAB PO SCH (08:00)
[2016-12-22] MEDS: ESCITALOPRAM OXALATE 10 MG TAB PO SCH (08:25)
[2016-12-22] MEDS: ISOSORBIDE MONONITRATE 30 MG TABCR PO SCH (08:26)
[2016-12-22] MEDS: PANTOprazole SOD 40 MG TAB PO SCH (08:26)
[2016-12-22] MEDS: MAGNESIUM CHLORIDE 64MG DELAYED REL TAB PO SCH ×2 (08:26→14:14)
[2016-12-22] MEDS: LACTOBACILLUS ACIDOPHILUS (FLORANEX) TAB PO SCH (08:26)
[2016-12-22] MEDS: ATORVASTATIN 40 MG TAB PO SCH (08:26)
[2016-12-22] MEDS: ASPIRIN 81 MG ECTAB PO SCH (08:26)
[2016-12-22] MEDS: DOCUSATE SODIUM 100 MG CAP PO SCH (08:26)
[2016-12-22] MEDS: CEROVITE ADV FORMULA TAB PO SCH (08:26)
[2016-12-22 09:00] VITALS: BP 157/89
[2016-12-22] MEDS: INSULIN GLARGINE SOLOSTAR 100 UNITS/ML 3 ML PEN SC SCH (09:46)
[2016-12-22] MEDS: INSULIN ASPART 100 UNITS/ML 3 ML PEN SC SCH ×2 (09:46→12:42)
--- NOTE | 2016-12-22 14:42 | Progress Note ---
Medicine Progress Note Date & Time of Visit: Dec 22, 2016 at 14:36. Subjective Pt was seen and examined Sitting in chair very comfortable with no distress Pt said that she feels fine she tolerates low fiber diet she denies any N/V Denies any chest pain, palpitation, dizziness and SOB Objective Last 8 Hrs Date Time Temp Pulse Resp B/P (MAP) Pulse Ox O2 Delivery O2 Flow Rate FiO2 12/22/16 09:00 Room Air 12/22/16 09:00 157/89 (111) 12/22/16 07:35 36.4 59 16 92/48 (63) 92 Room Air Physical Exam: General- no acute distress Head- atraumatic Eyes- PERRL, EOMI ENT- oropharynx clear Neck- supple, no JVD Lungs- clear to auscultation Heart- regular rhythm; no murmur Abdomen- normal bowel sounds, soft, +mild tenderness Extremities- no calf tenderness Neuro- alert, oriented x 3; PERRL, EOMI Skin- warm & dry Laboratory Results: Last 24 Hours Test 12/21/16 16:31 12/21/16 20:32 12/22/16 05:18 12/22/16 08:04 Bedside Glucose 169 mg/dl 202 mg/dl 198 mg/dl White Blood Count 9.98 K/uL Red Blood Count 4.30 M/uL Hemoglobin 12.3 g/dL Hematocrit 37.5 % Mean Corpuscular Volume 87.2 fL Mean Corpuscular Hemoglobin 28.6 pg Mean Corpuscular Hemoglobin Concent 32.8 g/dl RDW Standard Deviation 42.3 fL RDW Coefficient of Variation 13.2 % Platelet Count 284 K/uL Mean Platelet Volume 10.5 fL Sodium Level 139 mmol/L Potassium Level 3.9 mmol/L Chloride Level 103 mmol/L Carbon Dioxide Level 27 mmol/L Anion Gap 9.0 mmol/L Blood Urea Nitrogen 17 mg/dl Creatinine 0.86 mg/dl Est Creatinine Clear Calc Drug Dose 70.8 ml/min Estimated GFR () 83.3 Estimated GFR (Non- 71.9 BUN/Creatinine Ratio 19.8 Random Glucose 175 mg/dl Calcium Level 8.9 mg/dl Test 12/22/16 11:24 Bedside Glucose 341 mg/dl Assessment & Plan NAUSEA/ VOMITING/Abdominal pain Unknown etiology Possible related to diabetic gastroparesis CT abd/pelvis showed no acute intracranial abnormality. Abdominal xray showed no evidence of obstruction Zofran changed to Phenergan Continue pain control D/C IV fluids Diet advanced to low fiber clinically improved Resolved SABRINA ON CKD STAGE III Creat is increased to 1.4 from baseline 1.1 Creatine 1.1 today D/C IV fluids Monitor BMP resolved DM TYPE 2 Uncontrolled- last A1c 8.5 09/06/16 On Insulin sliding scale Continue monitor BS HYPERTENSION BP elevated Possible attributed to pain Resumed lisinopril Continue metoprolol and Imdur On prn hydralazine for SBP above 170 will need to titrate BP med Monitor BP CAD S/P CABG AND PCI Asymptomatic Continue aspirin, Plavix, beta clyde, statin, Imdur Stable DEPRESSION Continue current home med stable ASTHMA Not in exacerbation Stable H/O VF S/P ICD Stable, in NSR ADRENAL CYST Continue outpatient surveillance with [facility] [place] general surgery DVT PROPHYLAXIS Heparin SQ CODE STATUS FULL CODE DISPOSITION Will discharge home today Follow up appointment with your physician Dr. Ramirez on 12/31 @ 11:05 am Current Inpatient Medications: Current Inpatient Medications Medications (Trade) Dose Ordered Sig/Tera Route Start Time Stop Time Status Last Admin Dose Admin Aspirin (Ecotrin Tab) 81 mg QAM PO 12/20/16 08:00 01/19/17 08:59 12/22/16 08:26 81 MG Atorvastatin Calcium (Lipitor Tab) 40 mg DAILY PO 12/20/16 08:00 01/19/17 08:59 12/22/16 08:26 40 MG Clopidogrel Bisulfate (plAVix TAB) 75 mg HS PO 12/19/16 21:00 01/18/17 20:59 12/21/16 21:42 75 MG Docusate Sodium (coLACE CAP) 100 mg BID PO 12/19/16 20:00 01/18/17 20:59 12/22/16 08:26 100 MG Escitalopram Oxalate (Lexapro Tab) 15 mg QAM PO 12/20/16 08:00 01/19/17 08:59 12/22/16 08:25 15 MG Hydroxyzine HCl (Vistaril Tab) 25 mg HS PO 12/19/16 21:00 01/18/17 20:59 12/21/16 21:41 25 MG Insulin Glargine (Lantus Solostar Pen) 20 unit BID SC 12/19/16 20:00 01/18/17 20:59 12/22/16 09:46 20 UNIT Isosorbide Mononitrate (Imdur Ext Rel Tab) 90 mg DAILY PO 12/20/16 08:00 01/19/17 08:59 12/22/16 08:26 90 MG Lactobacillus Acidophilus (Floranex Tab) 1 tab DAILY PO 12/20/16 08:00 01/19/17 08:59 12/22/16 08:26 1 TAB Lorazepam (Ativan Tab) 0.5 mg TID PRN PO 12/19/16 15:15 01/18/17 15:14 12/19/16 23:26 0.5 MG Magnesium Chloride (Slow-Mag Tab) 64 mg TID PO 12/19/16 20:00 01/18/17 20:59 12/22/16 14:14 64 MG Metoprolol Succinate (Toprol Xl Tab) 50 mg BID PO 12/19/16 20:00 01/18/17 20:59 12/21/16 21:40 50 MG Multivitamins/ Minerals (Multivitamin W/ Minerals Tab) 1 tab QAM PO 12/20/16 08:00 01/19/17 08:59 12/22/16 08:26 1 TAB Nitroglycerin (Nitrostat Tab) 0.4 mg UD PRN UT 12/19/16 15:15 01/18/17 15:14 Pantoprazole Sodium (Protonix Tab) 40 mg BID PO 12/19/16 20:00 01/18/17 20:59 12/22/16 08:26 40 MG Senna/Docusate Sodium (Senokot S Tab) 1 tab HS PO 12/19/16 21:00 01/18/17 20:59 12/21/16 21:42 1 TAB Albuterol (Ventolin Hfa Inhaler) 2 puffs Q4H PRN INH 12/19/16 17:00 01/18/17 16:59 Heparin Sodium (Porcine) (Heparin Sq 5000 Unit/0.5ml) 5,000 unit Q8H SQ 12/19/16 22:00 01/18/17 21:59 12/22/16 14:16 5,000 UNIT Acetaminophen (Tylenol Tab) 650 mg Q4H PRN PO 12/19/16 15:30 01/18/17 15:29 12/20/16 05:40 650 MG Magnesium Hydroxide (Milk Of Magnesia Susp) 30 ml Q6H PRN PO 12/19/16 15:30 01/18/17 15:29 12/22/16 05:40 30 ML Polyethylene (Miralax Powder Packet) 17 gm DAILY PRN PO 12/19/16 15:30 01/18/17 15:29 Ondansetron HCl (Zofran Inj) 4 mg Q6H PRN IV 12/19/16 15:30 01/18/17 15:29 12/20/16 08:01 4 MG Insulin Aspart (novoLOG ASPART) SLIDING SCALE If C... ACHS SC 12/19/16 21:00 01/18/17 20:59 12/22/16 12:42 13 UNITS Glucose (Glucose 40% Gel) 15-30 GRAMS 15 GRAMS... UD PRN PO 12/19/16 15:30 01/18/17 15:29 Glucose (Glucose Chew Tab) 4-8 Tablets 4 Tabl... UD PRN PO 12/19/16 15:30 01/18/17 15:29 Dextrose (Dextrose 50% 50ML Syringe) 25-50ML OF 50% DW IV FOR... UD PRN IV 12/19/16 15:30 01/18/17 15:29 Glucagon (Glucagon Inj) 1 mg UD PRN SQ 12/19/16 15:30 01/18/17 15:29 Promethazine HCl 12.5 mg/Sodium Chloride 50.5 ml @ 204 mls/hr Q6H PRN IV 12/20/16 11:30 01/19/17 11:29 12/21/16 10:12 204 MLS/HR Hydralazine HCl (HydrALAZINE INJ) 10 mg Q6 PRN IV. 12/21/16 08:00 01/20/17 07:59 12/22/16 05:41 10 MG Lisinopril (Zestril Tab) 15 mg QAM PO 12/22/16 08:00 01/21/17 07:59 12/22/16 08:25 15 MG
--- NOTE | 2016-12-22 14:52 | Discharge Instructions ---
Discharge Instructions Date of Service Dec 22, 2016. Admission Reason for Admission: Nausea/Vomiting/Abdominal Pain Discharge Discharge Diagnosis / Problem: NAUSEA/ VOMITING/ABDOMINAL PAIN, ACUTE KIDNEY INJURY ON CKD STAGE 3, HTN Discharge Goals Goal(s): Decrease discomfort, Improve function, Improve disease control Activity Recommendations Activity Limitations: resume your previous activity ( TOLERATED) . Instructions / Follow-Up Instructions / Follow-Up Follow up with your primary care provider Dr. Ramirez on 12/31 at 11:05 am Fall precaution Continue monitor blood pressure Follow a healthy diabetic diet with low carb and limited concentrated sugar intake Current Hospital Diet Patient's current hospital diet: Low Sodium Diet (2gm Na), Diabetes Type 2 Diet , Low Fiber Diet Discharge Diet Recommended Diet: AHA Diet (Heart Healthy), Low Sodium Diet (2gm Na), Low Fiber Diet Pending Studies Studies pending at discharge: no Medical Emergencies . Who to Call and When: Medical Emergencies: If at any time you feel your situation is an emergency, please call 911 immediately. . Non-Emergent Contact Non-Emergency issues call your: Primary Care Provider Call Non-Emergent contact if: you have any medication questions . . "Provider Documentation" section prepared by Alistair Machado. . VTE Core Measure Inpt VTE Proph given/why not?: Unfractionated heparin SQ
[2016-12-22 16:32] VITALS: BP 157/89; PULSE 59; TEMP 36.4; O2SAT 92
--- NOTE | 2016-12-24 17:31 | Discharge Summary ---
Discharge Summary Date of Service Dec 24, 2016. Discharge Summary Admission Date: Dec 19, 2016 at 15:20 Discharge Date: Dec 22, 2016 Discharge Disposition: Home Principal Diagnosis: NAUSEA/ VOMITING/ABDOMINAL PAIN Secondary Diagnoses/Problems: NAUSEA/ VOMITING/ABDOMINAL PAIN ACUTE KIDNEY INJURY ON CKD STAGE 3 HTN DM TYPE 2 Adrenal Cyst CAD S/P CABG AND PCI ASTHMA Procedures: HEAD CT NONCONTRAST CT DOSE: 537.48 mGy.cm HISTORY: Trauma fall eval for bleed TECHNIQUE: Multiaxial CT images of the head were performed without the use of intravenous contrast. Comparison: None. Findings: The paranasal sinuses and mastoid air cells are clear. The calvarium and skull base are intact. The ventricles and sulci are within normal limits. There is no mass, hematoma, midline shift, or acute infarct. Impression: No acute intracranial abnormality. Electronically signed by: James Nickerson M.D. 12/19/2016 11:04 AM Dictated Date/Time: 12/19/2016 11:02 AM ABDOMEN 2VIEW W/PA CHEST RTN CLINICAL HISTORY: Abdominal pain COMPARISON STUDY: 11/27/2016 FINDINGS: There are postsurgical changes of a midline sternotomy. The heart is normal in size. There is a left subclavian pacer/defibrillator present. There is no focal pulmonary consolidation. There is no free intraperitoneal air. Erect and supine views the abdomen reveal no abnormally dilated loops of large or small bowel. There are no transition zones indicate bowel obstruction. Right upper quadrant surgical clips, are consistent with a prior cholecystectomy. Nonspecific pelvic basin calcifications remain stable, and therefore likely represent phleboliths. IMPRESSION: No evidence of bowel obstruction. No evidence of free air. Electronically signed by: Chau Meyers M.D. 12/19/2016 11:21 AM Dictated Date/Time: 12/19/2016 11:19 AM Medication Reconciliation Continued Medications: Albuterol Sulfate (Proair Respiclick) 108 Mcg/Act Aer 2 PUFFS INH Q4H PRN for Wheezing Aspirin (Aspirin Ec) 81 Mg Tab 81 MG PO QAM Atorvastatin (Atorvastatin Calcium) 40 Mg Tab 40 MG PO DAILY Calcium Carbonate-Cholecalcife (Caltrate 600+D) 1 Tab Tab 1 TABLET PO BID Clopidogrel Bisulfate (Plavix) 75 Mg Tab 75 MG PO HS Docusate Sodium (Docusate Sodium) 100 Mg Cap 100 MG PO BID Escitalopram Oxalate (Lexapro) 10 Mg Tab 15 MG PO QAM, TAB Hydroxyzine Hcl (Atarax) 25 Mg Tab 25 MG PO HS, TAB Insulin Aspart (Novolog Flexpen) 100 Units/Ml Inj 30 UNITS SC AC DO NOT USE IF SHE DOESN'T EAT Insulin Glargine (Lantus Solostar) 100 Unit/Ml Inj 30 UNITS SC AMPM, PEN Isosorbide Mononitrate Ext Rel (Imdur Ext Rel) 30 Mg Tabcr 90 MG PO DAILY, #90 Lactobacillus (Floranex) 1 Tab Tab 1 TAB PO DAILY Lisinopril (Lisinopril) 5 Mg Tab 15 MG PO QAM Lorazepam (Ativan) 0.5 Mg Tab 0.5 MG PO TID PRN for Anxiety, TAB Magnesium Chloride (Mag64) 535 Mg Tab 1 TAB PO TID Metoprolol Succinate (Metoprolol Succinate ER) 50 Mg Tabcr 50 MG PO BID Multivitamins/Minerals (Mvi With Minerals) Tab 1 TABLET PO QAM, TAB Nitroglycerin (Nitrostat) 0.4 Mg Tab 0.4 MG UT UD PRN for Chest Pain, 0 Refills Pantoprazole (Protonix) 40 Mg Tab 40 MG PO BID, 0 Refills Sennosides-Docusate Sodium (Senna Plus) 1 Tab Tab 1 TAB PO HS Admission Information HPI (per Admitting provider): This is a 61 year old female with PMH of DM type 2 insulin dependent, CAD s/p CABG, HTN, HL, diastolic CHF, hx VT s/p ICD, GERD, CKD stage III, and other problems listed below who presents to the ED for vomiting. Patient was previously admitted to [facility] in Aug 2016 for C. diff and in September 2016 for abdominal pain ? secondary to colitis (C. diff negative) and depression. She was seen by GI and psych at that time. She was found to have an adrenal cyst at that time and was seen in f/u by [facility] surg, adrenal labs were normal, planned for surveillance. Pt states she was treated for UTI in November but no longer having urinary symptoms. Patient states vomiting started 5 days ago. She reports inability to keep down food, liquids, meds. Last emesis was this morning [employer]. Nausea is improved after Phenergan given in ER. Pt reports ongoing abdominal pain described as aching in periumbilical area which is intermittent x several months. She states last BM was soft formed this morning. She is feeling generally weak and tired with subjective warmth/ cold and sweats. Patient fell onto her buttocks 5 days ago due to losing balance while walking with her aide. Uses cane, walker, or wheelchair at home. States mood is stable. Denies URI symptoms, cough, SOB, chest pain, hematemesis, hematochezia, melena. She did not take her AM meds today nor did she take her insulin. Pt states home BSG ran high 200s this week. No travel, sick contact, unusual food intake. No recent EGD. Physical Exam (per Admitting): General Appearance: + obese, + pertinent finding (alert 61 year old female, no distress, flat affect) Head: normocephalic, atraumatic Eyes: normal inspection, PERRL, EOMI, sclerae normal ENT: hearing grossly normal, pharynx normal Neck: supple, trachea midline Respiratory/Chest: lungs clear, normal breath sounds, no respiratory distress, no accessory muscle use Cardiovascular: regular rate, rhythm, no murmur Abdomen/GI: normal bowel sounds, soft, + pertinent finding (obese. diffuse mild tenderness. no guarding. ) Extremities/Musculoskelatal: no calf tenderness, no pedal edema Neurologic/Psych: alert, oriented x 3, + pertinent finding (flat depressed affect. grossly nonfocal. ) Skin: normal color, warm/dry Hospital Course NAUSEA/ VOMITING/Abdominal pain Unknown etiology Possible related to diabetic gastroparesis CT abd/pelvis showed no acute intracranial abnormality. Abdominal xray showed no evidence of obstruction Zofran changed to Phenergan Continue pain control D/C IV fluids Diet advanced to low fiber clinically improved Resolved SABRINA ON CKD STAGE III Creat is increased to 1.4 from baseline 1.1 Creatine 1.1 today D/C IV fluids Monitor BMP resolved DM TYPE 2 Uncontrolled- last A1c 8.5 09/06/16 On Insulin sliding scale Continue monitor BS HYPERTENSION BP elevated Possible attributed to pain Resumed lisinopril Continue metoprolol and Imdur On prn hydralazine for SBP above 170 will need to titrate BP med Monitor BP CAD S/P CABG AND PCI Asymptomatic Continue aspirin, Plavix, beta clyde, statin, Imdur Stable DEPRESSION Continue current home med stable ASTHMA Not in exacerbation Stable H/O VF S/P ICD Stable, in NSR ADRENAL CYST Continue outpatient surveillance with [facility] [place] DVT PROPHYLAXIS Heparin SQ CODE STATUS FULL CODE DISPOSITION Will discharge home today Follow up appointment with your physician Dr. Ramirez on 12/31 @ 11:05 am Total time spent on discharge = 35 minutes This includes examination of the patient, discharge planning, medication reconciliation, and communication with other providers. Discharge Instructions Discharge Instructions Date of Service Dec 22, 2016. Admission Reason for Admission: Nausea/Vomiting/Abdominal Pain Discharge Discharge Diagnosis / Problem: NAUSEA/ VOMITING/ABDOMINAL PAIN, ACUTE KIDNEY INJURY ON CKD STAGE 3, HTN Discharge Goals Goal(s): Decrease discomfort, Improve function, Improve disease control Activity Recommendations Activity Limitations: resume your previous activity ( TOLERATED) . Instructions / Follow-Up Instructions / Follow-Up Follow up with your primary care provider Dr. Ramirez on 12/31 at 11:05 am Fall precaution Continue monitor blood pressure Follow a healthy diabetic diet with low carb and limited concentrated sugar intake Current Hospital Diet Patient's current hospital diet: Low Sodium Diet (2gm Na), Diabetes Type 2 Diet , Low Fiber Diet Discharge Diet Recommended Diet: AHA Diet (Heart Healthy), Low Sodium Diet (2gm Na), Low Fiber Diet Pending Studies Studies pending at discharge: no Medical Emergencies . Who to Call and When: Medical Emergencies: If at any time you feel your situation is an emergency, please call 911 immediately. . Non-Emergent Contact Non-Emergency issues call your: Primary Care Provider Call Non-Emergent contact if: you have any medication questions . . "Provider Documentation" section prepared by lAistair Machado. . VTE Core Measure Inpt VTE Proph given/why not?: Unfractionated heparin SQ Additional Copies To Reginaldo Ramirez D.O.
[2017-05-20] MEDS ORDERED: ONDA4TAB46 PO (13:55)
[2017-05-24] MEDS ORDERED: AMOX1TAB42 PO (16:45)
== END 2016-12-22 16:50 | disposition home or self-care (01) | DRG 392 ==
LOC: EDBD 09:21 → C.EDB 09:22 → C.4E 15:20 → ENRESERV 15:42
PROVIDERS: ADMIT Internal Medicine; ATTEND Internal Medicine
DX: R11.2 Nausea with vomiting, unspecified (principal); N17.9 Acute kidney failure, unspecified; I50.32 Chronic diastolic (congestive) heart failure; I13.0 Hypertensive heart and chronic kidney disease with heart failure and stage 1 through stage 4 chronic kidney disease, or unspecified chronic kidney disease; E11.43 Type 2 diabetes mellitus with diabetic autonomic (poly)neuropathy; I25.10 Atherosclerotic heart disease of native coronary artery without angina pectoris; E11.22 Type 2 diabetes mellitus with diabetic chronic kidney disease; J45.909 Unspecified asthma, uncomplicated; E27.8 Other specified disorders of adrenal gland; E78.5 Hyperlipidemia, unspecified; K21.9 Gastro-esophageal reflux disease without esophagitis; N18.3 Chronic kidney disease, stage 3 (moderate); Z83.3 Family history of diabetes mellitus; Z82.49 Family history of ischemic heart disease and other diseases of the circulatory system; Z87.891 Personal history of nicotine dependence; Z79.82 Long term (current) use of aspirin; Z79.4 Long term (current) use of insulin; Z95.810 Presence of automatic (implantable) cardiac defibrillator; Z95.1 Presence of aortocoronary bypass graft; F32.9 Major depressive disorder, single episode, unspecified; R10.9 Unspecified abdominal pain; Z91.81 History of falling

== ENCOUNTER 2017-02-02 20:55 | Observation (INO) | payer OTHER ==
[~2017-02-02] VITALS: Ht 160 cm; Wt 94.7 kg
[~2017-02-02 20:55] MED LIST changes: +DOCU100C31 PO; -GUAI1TAB55 PO; +NVLGI/PEN SC; -NVLGI7030 SC; -ONDA4TAB10 SL; -OXYC-643 PO; -POLY335025 PO
[2017-02-02] MEDS ORDERED: ONDANSETRON INJ 2 MG/ML 2 ML VIAL ONE (21:00)
[2017-02-02] MEDS ORDERED: SODIUM CHLORIDE 0.9% 1000ML 500 ML IV STA (21:02)
[2017-02-02] MEDS ORDERED: PROMETHAZINE HCL INJ 25 MG/ML 1 ML VIAL IV STA (21:02)
[2017-02-02] MEDS ORDERED: SODIUM CHLORIDE 0.9% 1000ML 1,000 ML IV STA (21:02)
--- NOTE | 2017-02-02 21:17 | EMERGENCY ROOM VISIT NOTE ---
History Report prepared by Melanie: Jorge Anderson Under the Supervision of: Dr. Diego Ram M.D. First contact with patient: 20:57 Chief Complaint: VOMITING Stated Complaint: NAUSEA, VOMIT History of Present Illness This HPI is limited as the patient is a poor historian. The patient is a 61 year old female who presents to the Emergency Room with complaints of persistent nausea and vomiting that began this morning, several hours prior to arrival. She also complains of "pressure" in her epigastric abdomen. She is a diabetic and had a blood sugar of 260 today, she is commonly in the 180's at baseline. She did not take her insulin today because she was not eating. She denies any sick contacts or chest pain. She did eat micronesian food today, which she notes may have caused her symptoms. 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 A total of 10 systems reviewed and were otherwise negative. Past Medical & Surgical Medical Problems: (1) Abdominal pain (2) SABRINA (acute kidney injury) (3) Ambulatory dysfunction (4) Aortocoronary Bypass (5) Asthma, Unspecified (6) CKD (chronic kidney disease), stage III (7) Coronary atherosclerosis of [place] coronary vessel (8) Depression (9) Diab Nany Wo Compl, Type Ii Or Unspec Type, Not Uncntrld (10) Diabetic nephropathy (11) Diabetic retinopathy (12) GERD (gastroesophageal reflux disease) (13) Hypertension Nos (14) Neuropathy in diabetes (15) Obesity, Class II, BMI 35-39.9, with comorbidity (16) Obstructive Sleep Apnea (Adult) (Pediatric) (17) Osteoarthritis (18) Pacemaker (19) Polymyalgia rheumatica (20) Presence of combination internal cardiac defibrillator (ICD) and pacemaker (21) Pure Hypercholesterolem (22) Ventricular fibrillation Surgical Problems: (1) H/O eye surgery (2) History of appendectomy (3) History of cholecystectomy (4) History of hysterectomy (5) History of hysterectomy (6) S/P triple vessel bypass Social History Problems: (1) Diabetes mellitus Family History Diabetes mellitus FATHER BROTHER FH: cancer FH: lung disease FHx: heart disease MOTHER Hypertension MOTHER Kidney disease Kidney stones Social History Smoking Status: Never Smoker Alcohol Use: occasionally Drug Use: none Marital Status: Housing Status: lives alone Occupation Status: disabled Current/Historical Medications Scheduled Aspirin (Aspirin Ec), 81 MG PO QAM Atorvastatin (Atorvastatin Calcium), 40 MG PO DAILY Calcium Carbonate-Cholecalcife (Caltrate 600+D), 1 TABLET PO BID Clopidogrel Bisulfate (Plavix), 75 MG PO HS Docusate Sodium (Docusate Sodium), 100 MG PO BID Escitalopram Oxalate (Lexapro), 15 MG PO QAM Hydroxyzine Hcl (Atarax), 25 MG PO HS Insulin Aspart (Novolog Flexpen), 30 UNITS SC AC Insulin Glargine (Lantus Solostar), 30 UNITS SC AMPM Isosorbide Mononitrate Ext Rel (Imdur Ext Rel), 90 MG PO DAILY Lactobacillus (Floranex), 1 TAB PO DAILY Lisinopril (Lisinopril), 15 MG PO QAM Magnesium Chloride (Mag64), 1 TAB PO TID Metoprolol Succinate (Metoprolol Succinate ER), 50 MG PO BID Multivitamins/Minerals (Mvi With Minerals), 1 TABLET PO QAM Pantoprazole (Protonix), 40 MG PO BID Sennosides-Docusate Sodium (Senna Plus), 1 TAB PO HS Scheduled PRN Albuterol Sulfate (Proair Respiclick), 2 PUFFS INH Q4H PRN for Wheezing Lorazepam (Ativan), 0.5 MG PO TID PRN for Anxiety Nitroglycerin (Nitrostat), 0.4 MG UT UD PRN for Chest Pain Allergies Coded Allergies: BEE STING (Verified Allergy, Severe, SWELLING, 02/02/17) Lidocaine (Verified Allergy, Severe, ANAPHYLAXIS, 02/02/17) Morphine (Verified Allergy, Mild, itching, 02/02/17) Tramadol (Verified Allergy, Mild, ITCHING, 02/02/17) Trazodone (Verified Allergy, Mild, ITCHING, 02/02/17) Physical Exam Vital Signs Date Time Temp Pulse Resp B/P (MAP) Pulse Ox O2 Delivery O2 Flow Rate FiO2 02/02/17 23:37 72 12 184/89 96 Room Air 02/02/17 23:26 70 14 193/84 94 Room Air 02/02/17 22:38 87 12 151/90 96 Room Air 02/02/17 22:19 69 02/02/17 21:14 72 12 196/77 97 Room Air 02/02/17 21:05 82 02/02/17 21:02 82 02/02/17 20:57 36.4 67 12 213/121 97 Room Air Physical Exam GENERAL: Patient is in mild distress, actively vomiting. HEENT: No acute trauma, normocephalic atraumatic, mucous membranes moist, no nasal congestion, no scleral icterus. NECK: No stridor, no adenopathy, no meningismus, trachea is midline. LUNGS: Clear to auscultation bilaterally, no wheeze, no rhonchi, breath sounds equal. HEART: Without murmurs gallops or rubs, regular rate and rhythm. ABDOMEN: Soft with tenderness in the epigastrium, bowel sounds positive, no hernias, no peritonitis. EXTREMITIES: No cyanosis or edema, full range of motion of all the joints without pain or difficulty, no signs for acute trauma. NEUROLOGIC: Oriented x 3, no acute motor or sensory deficits, no focal weakness. SKIN: No rash, no jaundice, no diaphoresis. Medical Decision & Procedures ER Provider Diagnostic Interpretation: Radiology results as stated below per my review and radiologist interpretation: CT OF THE ABDOMEN AND PELVIS WITHOUT CONTRAST CLINICAL HISTORY: Abdominal pain and vomiting. Possible bowel obstruction. COMPARISON STUDY: CT of the abdomen and pelvis November 27, 2016 and abdominal series December 19, 2016. TECHNIQUE: Axial images of the abdomen and pelvis were obtained without IV contrast. Images were reviewed in the axial, sagittal, and coronal planes. A dose lowering technique was utilized adhering to the principles of ALARA. FINDINGS: Evaluation of the abdomen and pelvis is suboptimal on this unenhanced exam. No pneumatosis, free air or portal venous gas is present. An intermediate attenuation 2.5 cm left adrenal nodule is unchanged since CT of November 27, 2016. This nodule has mildly increased in size since CT of October 13, 2013. The gallbladder is surgically absent. Mild dilatation of the common bile duct is unchanged since prior studies. This is likely related to prior cholecystectomy. Unenhanced images of liver, spleen, right adrenal gland and pancreas are unremarkable. Bilateral renal calculi are noted, the largest of which is an 8 mm calculus within the lower pole of the right kidney. There are no ureteral calculi. No hydronephrosis is present. There is no evidence for a bowel obstruction. The appendix is not visualized. There is mild presacral infiltration which was shown on prior exam. The previously described subcutaneous left buttock collection has nearly completely resolved. No suspicious osseous lesions are present. IMPRESSION: 1. Bilateral nephrolithiasis. No ureteral calculi or hydronephrosis. 2. No acute process within the abdomen or pelvis on unenhanced exam. 3. 2.5 cm left adrenal nodule which is unchanged since prior CT of November 27, 2016 but mildly increased in size since CT of October 13, 2013. This nodule remains indeterminate. 4. No bowel obstruction. Moderate amount of stool within the rectum. Electronically signed by: Osvaldo Verde M.D. 02/02/2017 10:31 PM Dictated Date/Time: 02/02/2017 10:21 PM CHEST ONE VIEW PORTABLE CLINICAL HISTORY: Abdominal pain. COMPARISON STUDY: Chest radiograph December 19, 2016. FINDINGS: A left subclavian pacer/AICD is in place. There is no pneumothorax or pleural effusion. There are median sternotomy wires. Mild cardiomegaly is unchanged. There is no evidence of pulmonary edema. IMPRESSION: No acute cardiopulmonary findings. Electronically signed by: Osvaldo Verde M.D. 02/02/2017 9:56 PM Dictated Date/Time: 02/02/2017 9:54 PM Laboratory Results 02/02/17 21:05 Red Blood Count 4.75, Mean Corpuscular Volume 86.1, Mean Corpuscular Hemoglobin 28.2, Mean Corpuscular Hemoglobin Concent 32.8, Mean Platelet Volume 10.4, Neutrophils (%) (Auto) 60.2, Lymphocytes (%) (Auto) 36.6, Monocytes (%) (Auto) 2.6, Eosinophils (%) (Auto) 0.2, Basophils (%) (Auto) 0.2, Neutrophils # (Auto) 6.37, Lymphocytes # (Auto) 3.86, Monocytes # (Auto) 0.27, Eosinophils # (Auto) 0.02, Basophils # (Auto) 0.02 02/02/17 21:05 Test 02/02/17 21:05 02/02/17 22:05 White Blood Count 10.56 K/uL (4.8-10.8) Red Blood Count 4.75 M/uL (4.2-5.4) Hemoglobin 13.4 g/dL (12.0-16.0) Hematocrit 40.9 % (37-47) Mean Corpuscular Volume 86.1 fL (80-100) Mean Corpuscular Hemoglobin 28.2 pg (25-34) Mean Corpuscular Hemoglobin Concent 32.8 g/dl (32-36) Platelet Count 204 K/uL (130-400) Mean Platelet Volume 10.4 fL (7.4-10.4) Neutrophils (%) (Auto) 60.2 % Lymphocytes (%) (Auto) 36.6 % Monocytes (%) (Auto) 2.6 % Eosinophils (%) (Auto) 0.2 % Basophils (%) (Auto) 0.2 % Neutrophils # (Auto) 6.37 K/uL (1.4-6.5) Lymphocytes # (Auto) 3.86 K/uL (1.2-3.4) Monocytes # (Auto) 0.27 K/uL (0.11-0.59) Eosinophils # (Auto) 0.02 K/uL (0-0.5) Basophils # (Auto) 0.02 K/uL (0-0.2) RDW Standard Deviation 39.6 fL (36.4-46.3) RDW Coefficient of Variation 12.4 % (11.5-14.5) Immature Granulocyte % (Auto) 0.2 % Immature Granulocyte # (Auto) 0.02 K/uL (0.00-0.02) Prothrombin Time 10.8 SECONDS (9.0-12.0) Prothromb Time International Ratio 1.0 (0.9-1.1) Activated Partial Thromboplast Time 25.7 SECONDS (21.0-31.0) Partial Thromboplastin Ratio 1.0 Anion Gap 6.0 mmol/L (3-11) Est Creatinine Clear Calc Drug Dose 45.0 ml/min Estimated GFR () 46.2 Estimated GFR (Non- 39.9 BUN/Creatinine Ratio 16.6 (10-20) Calcium Level 9.9 mg/dl (8.5-10.1) Magnesium Level 1.7 mg/dl (1.8-2.4) Total Bilirubin 0.6 mg/dl (0.2-1) Aspartate Amino Transf (AST/SGOT) 18 U/L (15-37) Alanine Aminotransferase (ALT/SGPT) 19 U/L (12-78) Alkaline Phosphatase 55 U/L (45-117) Troponin I < 0.015 ng/ml (0-0.045) Total Protein 8.7 gm/dl (6.4-8.2) Albumin 3.7 gm/dl (3.4-5.0) Globulin 5.0 gm/dl (2.5-4.0) Albumin/Globulin Ratio 0.7 (0.9-2) Lipase 135 U/L (73-393) Urine Color YELLOW Urine Appearance CLEAR (CLEAR) Urine pH 6.0 (4.5-7.5) Urine Specific [place] 1.016 (1.000-1.030) Urine Protein TRACE (NEG) Urine Glucose (UA) 2+ (NEG) Urine Ketones TRACE (NEG) Urine Occult Blood NEG (NEG) Urine Nitrite NEG (NEG) Urine Bilirubin NEG (NEG) Urine Urobilinogen NEG (NEG) Urine Leukocyte Esterase NEG (NEG) Urine WBC (Auto) 1-5 /hpf (0-5) Urine RBC (Auto) 0-4 /hpf (0-4) Urine Hyaline Casts (Auto) 0 /lpf (0-5) Urine Epithelial Cells (Auto) 5-10 /lpf (0-5) Urine Bacteria (Auto) NEG (NEG) Laboratory results reviewed by me. Medications Administered Medications (Trade) Dose Ordered Sig/Tera Route Start Time Stop Time Status Last Admin Dose Admin Ondansetron HCl (Zofran Inj) 4 mg STK-MED ONCE .ROUTE 02/02/17 21:00 02/02/17 21:01 DC 02/02/17 21:06 4 MG Sodium Chloride 500 ml @ 999 mls/hr Q31M STAT IV 02/02/17 21:02 02/02/17 21:32 DC 02/02/17 21:07 999 MLS/HR Sodium Chloride 1,000 ml @ 200 mls/hr Q5H STAT IV 02/02/17 21:02 02/03/17 02:01 02/02/17 21:07 200 MLS/HR Promethazine HCl 6.25 mg/Sodium Chloride 50.25 ml @ 202 mls/hr NOW ONCE IV 02/02/17 22:00 02/02/17 22:14 DC 02/02/17 21:54 202 MLS/HR Magnesium Sulfate (Magnesium Sulfate) 1 gm NOW STAT IV 02/02/17 21:55 02/02/17 21:56 DC 02/02/17 22:02 1 GM Ondansetron HCl (Zofran Inj) 4 mg NOW STAT IV 02/02/17 23:21 02/02/17 23:24 DC 02/02/17 23:29 4 MG Hydralazine HCl (HydrALAZINE INJ) 10 mg NOW STAT IV 02/02/17 23:21 02/02/17 23:24 DC 02/02/17 23:30 10 MG ECG Indication: abdominal pain, vomiting Rate (beats per minute): 72 Rhythm: sinus rhythm, other (with an occasional paced beat) Findings: no acute ischemic change ED Course 2100: The patient was evaluated in room C4. A complete history and physical exam was performed. 2100: Ordered Zofran 4 mg IV. 2102: Ordered Sodium Chloride 1000 mL @ 200 mL/hr IV, Phenergan HCl 6.25 mg IV, Sodium Chloride 500 mL @ 999 mL/hr IV. 2200: Ordered Promethazine HCl 50.25 mL @ 202 mL/hr IV. 2319: I reevaluated the patient at this time. She is still actively vomiting. 2321: ordered Hydralazine HCl 10 mg IV, Zofran 4 mg IV. 2328: I discussed the case with Dr. [place] [facility] [place] He will evaluate the patient for further treatment. Medical Decision Differential Diagnosis includes; bowel obstruction, viral illness, renal failure , dehydration, electrolyte imbalance, NM, cardiac ischemia, pneumonia, UTI. There is no leukocytosis or concerning anemia. No significant electrolyte abnormality, kidney failure or hepatitis. Magnesium noted to be slightly low. No pancreatitis. There was no coagulopathy. Urinalysis did not show evidence for infection. Chest film showed no pneumonia or CHF, there was no free air. EKG showed a sinus rhythm with an occasional paced beat, no acute ischemia. Cardiac enzyme testing times one was not consistent with acute cardiac injury. Abdominal and pelvis CT shows no bowel obstruction. Constipation was noted. No acute surgical process by CT scan. The patient presents actively vomiting with epigastric pain. Looking at previous records, she has had issues like this before without a real good reason behind the presentation. This has been an ongoing issue as per her family. Patient received IV saline, IV Zofran and IV Phenergan, she received a second dose of IV Zofran for persistent vomiting. She received IV magnesium, she was given IV hydralazine for her elevated blood pressure. The patient is finally doing somewhat better, I do think admission/observation is warranted. She has had persistent symptoms despite numerous medications. The cause for the presentation is not clear. I did speak to the patient and case management. The on-call hospitalist was consulted. Medication Reconcilliation Current Medication List: was personally reviewed by me Blood Pressure Screening Patient's blood pressure: Elevated blood pressure Blood pressure disposition: Referred to PCP Consults Time Called: 2319 Consulting Physician: Dr. Neelam BRADSHAW Hospitalist Returned Call: [phone] I discussed the case with Dr. Neelam BRADSHAW Hospitalist. He will evaluate the patient for further treatment. Impression Primary Impression: Vomiting Additional Impressions: Epigastric abdominal pain Dehydration Scribe Attestation The scribe's documentation has been prepared under my direction and personally reviewed by me in its entirety. I confirm that the note above accurately reflects all work, treatment, procedures, and medical decision making performed by me. Departure Information Dispostion Being Evaluated By Hospitalist Referrals Reginaldo Ramirez D.O. (PCP) Patient Instructions My [facility] Problem Qualifiers
[2017-02-02 21:19] LABS: BASO % 0.2 %; BASO ABS # 0.02 K/uL (0-0.2); COMPLETE YES; EOS % 0.2 %; HEMATOCRIT 40.9 % (37-47); IG% 0.2 %; LYMPH % 36.6 %; LYMPH ABS # 3.86 K/uL (1.2-3.4); MEAN CELL VOLUME 86.1 fL (80-100); MEAN CORPUSCULAR HEMOGLOBIN 28.2 pg (25-34); MEAN CORPUSCULAR HGB CONC 32.8 g/dl (32-36); MEAN PLATELET VOLUME 10.4 fL (7.4-10.4); MONO % 2.6 %; NEUT % 60.2 %; PLATELET COUNT 204 K/uL (130-400); RED BLOOD COUNT 4.75 M/uL (4.2-5.4); WHITE BLOOD COUNT 10.56 K/uL (4.8-10.8)
[2017-02-02 21:39] LABS: PROTHROMBIN TIME (PATIENT) 10.8 SECONDS (9.0-12.0)
[2017-02-02 21:42] LABS: ALB/GLOB RATIO 0.7 (0.9-2); ALKALINE PHOSPHATASE 55 U/L (45-117); ALT/SGPT 19 U/L (12-78); AST/SGOT 18 U/L (15-37); BLOOD UREA NITROGEN 23 mg/dl (7-18); BUN/CREATININE RATIO 16.6 (10-20); CALCIUM 9.9 mg/dl (8.5-10.1); CARBON DIOXIDE 30 mmol/L (21-32); CHLORIDE 100 mmol/L (98-107); GLUCOSE 251 mg/dl (70-99); MAGNESIUM 1.7 mg/dl (1.8-2.4); POTASSIUM 4.4 mmol/L (3.5-5.1); SODIUM 136 mmol/L (136-145)
[2017-02-02] MEDS ORDERED: MAGNESIUM SULFATE 1GM / D5W 1 GM BAG IV STA (21:55)
--- NOTE | 2017-02-02 21:57 | DIAGNOSTIC IMAGING REPORT ---
CHEST ONE VIEW PORTABLE CLINICAL HISTORY: Abdominal pain. COMPARISON STUDY: Chest radiograph December 19, 2016. FINDINGS: A left subclavian pacer/AICD is in place. There is no pneumothorax or pleural effusion. There are median sternotomy wires. Mild cardiomegaly is unchanged. There is no evidence of pulmonary edema. IMPRESSION: No acute cardiopulmonary findings. Electronically signed by: Osvaldo Verde M.D. 02/02/2017 9:56 PM Dictated Date/Time: 02/02/2017 9:54 PM
[2017-02-02] MEDS ORDERED: PROMETHAZINE HCL INJ 6.25 MG in SODIUM CHLORIDE 0.9% 50ML 50 ML IV ONE (22:00)
--- NOTE | 2017-02-02 22:33 | DIAGNOSTIC IMAGING REPORT ---
CT OF THE ABDOMEN AND PELVIS WITHOUT CONTRAST CLINICAL HISTORY: Abdominal pain and vomiting. Possible bowel obstruction. COMPARISON STUDY: CT of the abdomen and pelvis November 27, 2016 and abdominal series December 19, 2016. TECHNIQUE: Axial images of the abdomen and pelvis were obtained without IV contrast. Images were reviewed in the axial, sagittal, and coronal planes. A dose lowering technique was utilized adhering to the principles of ALARA. FINDINGS: Evaluation of the abdomen and pelvis is suboptimal on this unenhanced exam. No pneumatosis, free air or portal venous gas is present. An intermediate attenuation 2.5 cm left adrenal nodule is unchanged since CT of November 27, 2016. This nodule has mildly increased in size since CT of October 13, 2013. The gallbladder is surgically absent. Mild dilatation of the common bile duct is unchanged since prior studies. This is likely related to prior cholecystectomy. Unenhanced images of liver, spleen, right adrenal gland and pancreas are unremarkable. Bilateral renal calculi are noted, the largest of which is an 8 mm calculus within the lower pole of the right kidney. There are no ureteral calculi. No hydronephrosis is present. There is no evidence for a bowel obstruction. The appendix is not visualized. There is mild presacral infiltration which was shown on prior exam. The previously described subcutaneous left buttock collection has nearly completely resolved. No suspicious osseous lesions are present. IMPRESSION: 1. Bilateral nephrolithiasis. No ureteral calculi or hydronephrosis. 2. No acute process within the abdomen or pelvis on unenhanced exam. 3. 2.5 cm left adrenal nodule which is unchanged since prior CT of November 27, 2016 but mildly increased in size since CT of October 13, 2013. This nodule remains indeterminate. 4. No bowel obstruction. Moderate amount of stool within the rectum. Electronically signed by: Osvaldo Verde M.D. 02/02/2017 10:31 PM Dictated Date/Time: 02/02/2017 10:21 PM
[2017-02-02] MEDS ORDERED: HydrALAZINE HCL 20 MG/ML VIAL IV STA (23:21)
[2017-02-02] MEDS ORDERED: ONDANSETRON INJ 2 MG/ML 2 ML VIAL IV STA (23:21)
[2017-02-02 23:28] LABS: URINE APPEARANCE CLEAR (CLEAR); URINE BILIRUBIN NEG (NEG); URINE COLOR YELLOW; URINE NITRITE NEG (NEG); URINE SPECIFIC GRAVITY 1.016 (1.000-1.030); UROBILINOGEN NEG (NEG); ZZURINE CULT IF INDIC CATH NO
[2017-02-02 23:35] LABS: MANUAL MICROSCOPIC REQUIRED? NO; REVIEW REQ? NO
[2017-02-03] VITALS (9 sets, daily range): BP systolic 156–180; BP diastolic 78–93; PULSE 60–76; TEMP 36.4–36.8; O2SAT 95–100; Ht 160 cm; Wt 94.7 kg
[2017-02-03] MEDS ORDERED: NITROGLYCERIN 0.4 MG SL PER TAB CHARGE UT PRN (00:30)
[2017-02-03] MEDS ORDERED: ACETAMINOPHEN 325 MG TAB PO PRN (00:30)
[2017-02-03] MEDS ORDERED: GLUCOSE 10 TABS/TUBE PO PRN (00:30)
[2017-02-03] MEDS ORDERED: DEXTROSE 50% 50 ML SYR IV PRN (00:30)
[2017-02-03] MEDS ORDERED: OXYCODONE/ACETAMINOPHEN 5-325 TAB PO PRN (00:30)
[2017-02-03] MEDS ORDERED: PROMETHAZINE HCL INJ 12.5 MG in SODIUM CHLORIDE 0.9% 50ML 50 ML IV PRN (00:30)
[2017-02-03] MEDS ORDERED: GLUCOSE 40% GEL 15 GM TUBE PO PRN (00:30)
[2017-02-03] MEDS ORDERED: GLUCAGON FOR INJ 1 MG VIAL SQ PRN (00:30)
[2017-02-03] MEDS ORDERED: HYDROmorphone INJ 0.5 MG/0.5 ML SYR IV PRN (00:30)
[2017-02-03] MEDS ORDERED: SODIUM CHLORIDE 0.9% 1000ML 1,000 ML IV ONE (00:30)
[2017-02-03] MEDS ORDERED: METOCLOPRAMIDE HCL INJ 5 MG/ML 2 ML VIAL IV PRN (00:30)
[2017-02-03] MEDS ORDERED: IV FLUIDS COMPLETED PRN (00:45)
[2017-02-03] MEDS ORDERED: INSULIN ASPART 100 UNITS/ML 3 ML PEN SC ONE (01:30)
[2017-02-03] MEDS ORDERED: METOPROLOL SUCC 50MG EXT REL TAB PO ONE (01:30)
[2017-02-03] MEDS ORDERED: INSULIN GLARGINE SOLOSTAR 100 UNITS/ML 3 ML PEN SC ONE (01:30)
[2017-02-03] MEDS ORDERED: MAGNESIUM SULFATE 1GM / D5W 1 GM in PREMIXED IN D5W 100 ML IV ONE (01:30)
[2017-02-03] MEDS ORDERED: LORAZEPAM 0.5 MG TAB PO PRN (02:30)
--- NOTE | 2017-02-03 06:20 | HISTORY & PHYSICAL EXAMINATION ---
DATE OF ADMISSION: 02/03/2017 PRIMARY CARE PHYSICIAN: Dr. Rubin. CHIEF COMPLAINT: Abdominal pain, nausea and vomiting. HISTORY OF PRESENT ILLNESS: History obtained from the patient and records. Medical history is significant for chronic diastolic heart failure, CAD status post CABG/stenting, hypertension, hyperlipidemia, asthma, past tobacco abuse, mood disorder, DM2 insulin requiring, history VT/VF status post ICD. Recent confinement last month for nausea, vomiting, abdominal pain, possible diabetic gastroparesis. Yesterday, the patient noted achy lower abdominal pain, nausea, vomiting symptoms. Good bowel movement. No chest pain, no shortness of breath, no fever, no chills , no headache, intractable symptoms at the Emergency Room. MEDICAL HISTORY: As above. SURGERIES: CABG, ICD HOME MEDICATIONS: Include Protonix, Senokot, Ativan, lisinopril, metoprolol, multivitamins, Nitrostat, Lexapro, Atarax, NovoLog, Lantus, Imdur ER, aspirin, Proair, atorvastatin, Plavix ALLERGIES: BEE STINGS, LIDOCAINE, MORPHINE, TRAZODONE, TRAMADOL. FAMILY HISTORY: Heart disease. PERSONAL AND SOCIAL HISTORY: -[place] ethnicity. past tobacco abuse. No chronic alcohol intake. 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 REVIEW OF SYSTEMS: As per HPI, all other ROS negative. PHYSICAL EXAMINATION: VITAL SIGNS: Blood pressure was noted to be 151/90, pulse rate 87, RR 12, temperature 37, sats 96 on room air. GENERAL: Noted to be obese, lethargic. No respiratory distress. SKIN: Normal color. HEENT: [place] palpebral conjunctivae. Dry mucosa. NECK: Short neck. LUNGS: Decreased effort. HEART: Regular rate and rhythm. ABDOMEN: Epigastric tenderness, some distention. EXTREMITIES: No edema. no tenderness NEUROLOGIC: No gross focality except for some lethargy. LABS: Hemoglobin was noted to be 13.4, hematocrit 40 WBC 10 platelets 204. Sodium 136, potassium 4.4, chloride 100, CO2 30, BUN 20, creatinine 1.4, glucose 290. Hemoglobin A1c from December [address] abdomen and pelvis showed bilateral nephrolithiasis, no acute process, 2.5 left adrenal nodule unchanged from November 2016, indeterminate, moderate amount of stool within the rectum. UA ketones. ASSESSMENT: 1. Abdominal pain, nausea, vomiting. Recurrent symptoms ? question of DM gastroparesis no previous diagnosis in the past. 2. Acute renal failure secondary to above. 3. Hypertension, slightly elevated 4. Coronary artery disease status post coronary artery bypass graft. 5. Chronic diastolic heart failure. The patient on the dry side. 6. History of paroxysmal V-tach status post ICD. 7. DM2 insulin requiring, much improved control as of recent outpatient hemoglobin A1c px currently hyperglycemic secondary to missed nighttime insulin. 8. Past tobacco abuse. PLAN: Observation GMF analgesia, antiemetics, judicious narcotic use. Monitor creatinine response to IV fluids. Hold TAMARA inhibitor for now until creatinine at baseline. GI consult if the patient continues to have intractable symptoms. Basal insulin adjusted for clear liquid diet for now, ISS BG goal 140-180. DVT prophylaxis, Heparin subQ. Full code. MTDD
[2017-02-03 06:46] LABS: BASO % 0.1 %; BASO ABS # 0.01 K/uL (0-0.2); COMPLETE YES; HEMATOCRIT 39.7 % (37-47); IG% 0.4 %; LYMPH % 23.5 %; LYMPH ABS # 2.38 K/uL (1.2-3.4); MEAN CELL VOLUME 85.4 fL (80-100); MEAN CORPUSCULAR HEMOGLOBIN 28.8 pg (25-34); MEAN CORPUSCULAR HGB CONC 33.8 g/dl (32-36); MEAN PLATELET VOLUME 10.7 fL (7.4-10.4); MONO % 2.9 %; NEUT % 73.1 %; PLATELET COUNT 204 K/uL (130-400); RED BLOOD COUNT 4.65 M/uL (4.2-5.4); WHITE BLOOD COUNT 10.13 K/uL (4.8-10.8)
[2017-02-03 07:17] LABS: BUN/CREATININE RATIO 17.8 (10-20); CALCIUM 9.8 mg/dl (8.5-10.1); CREATININE 1.2 mg/dl (0.60-1.20); POTASSIUM 4.2 mmol/L (3.5-5.1)
[2017-02-03] MEDS: HEPARIN SOD 5000 UNIT/0.5 ML CARP SQ SCH ×3 (07:51→21:28)
[2017-02-03] MEDS: ATORVASTATIN 40 MG TAB PO SCH (08:50)
[2017-02-03] MEDS: ASPIRIN 81 MG ECTAB PO SCH (08:50)
[2017-02-03] MEDS: CEROVITE ADV FORMULA TAB PO SCH (08:50)
[2017-02-03] MEDS: METOPROLOL SUCC 50MG EXT REL TAB PO SCH ×2 (08:50→21:25)
[2017-02-03] MEDS: DOCUSATE SODIUM 100 MG CAP PO SCH ×2 (08:50→21:23)
[2017-02-03] MEDS: ISOSORBIDE MONONITRATE 30 MG TABCR PO SCH (08:51)
[2017-02-03] MEDS: PANTOprazole SOD 40 MG TAB PO SCH ×2 (08:51→21:23)
[2017-02-03] MEDS: LACTOBACILLUS ACIDOPHILUS (FLORANEX) TAB PO SCH (08:51)
[2017-02-03] MEDS: ESCITALOPRAM OXALATE 10 MG TAB PO SCH (08:51)
[2017-02-03] MEDS: INSULIN ASPART 100 UNITS/ML 3 ML PEN SC SCH ×4 (09:00→21:27)
[2017-02-03] MEDS: INSULIN GLARGINE SOLOSTAR 100 UNITS/ML 3 ML PEN SC SCH (09:01)
[2017-02-03] MEDS ORDERED: LISINOPRIL 20 MG TAB PO STA (09:41)
--- NOTE | 2017-02-03 09:59 | Progress Note ---
Subjective Date of Service: Feb 03, 2017. Subjective Pt evaluation today including: conversation w/ patient, physical exam, lab review, review of studies, review of inpatient medication list Saw/examined the patient in room 256 No problems/issues to note today Denies any nausea; states that is what brought her in Tolerated clear liquid breakfast Okay for advancing diet Problem List Medical Problems: (1) Adrenal nodule Status: Acute (2) Altered mental status Status: Acute (3) Ambulatory dysfunction Status: Acute (4) Blood in stool Status: Acute (5) Cardiomegaly Status: Acute (6) Chronic abdominal pain Status: Acute (7) Contusion of multiple sites Status: Acute (8) Dehydration Status: Acute (9) Dehydration Status: Acute (10) Dehydration Status: Acute (11) Dizziness Status: Acute (12) Epigastric abdominal pain Status: Acute (13) Fall Status: Acute (14) Hyperglycemia Status: Acute (15) Hyperglycemia Status: Acute (16) Influenza-like symptoms Status: Acute (17) Intractable nausea and vomiting Status: Acute (18) Vomiting Status: Acute Social History Problems: (1) Diabetes mellitus Status: Chronic Review of Systems Constitutional: No fever, No chills, No weakness Respiratory: No shortness of breath Cardiac: No chest pain Abdomen: + nausea (improving), No pain, No vomiting, No diarrhea, No constipation, No GI bleeding Heme: No abnormal bleeding/bruising Medications Current Inpatient Medications Medications (Trade) Dose Ordered Sig/Tera Route Start Time Stop Time Status Last Admin Dose Admin Metoprolol Succinate (Toprol Xl Tab) 50 mg BID PO 02/03/17 09:00 03/05/17 08:59 02/03/17 08:50 50 MG Heparin Sodium (Porcine) (Heparin Sq 5000 Unit/0.5ml) 5,000 unit Q8H SQ 02/03/17 06:00 03/05/17 05:59 02/03/17 07:51 5,000 UNIT Acetaminophen (Tylenol Tab) 650 mg Q4H PRN PO 02/03/17 00:30 03/05/17 00:29 Insulin Aspart (novoLOG ASPART) SLIDING SCALE If C... ACHS SC 02/03/17 06:30 03/05/17 06:59 02/03/17 09:00 8 UNITS Glucose (Glucose 40% Gel) 15-30 GRAMS 15 GRAMS... UD PRN PO 02/03/17 00:30 03/05/17 00:29 Glucose (Glucose Chew Tab) 4-8 Tablets 4 Tabl... UD PRN PO 02/03/17 00:30 03/05/17 00:29 Dextrose (Dextrose 50% 50ML Syringe) 25-50ML OF 50% DW IV FOR... UD PRN IV 02/03/17 00:30 03/05/17 00:29 Glucagon (Glucagon Inj) 1 mg UD PRN SQ 02/03/17 00:30 03/05/17 00:29 Sodium Chloride 1,000 ml @ 75 mls/hr [id number] ONCE IV 02/03/17 00:30 02/03/17 13:49 02/03/17 01:42 75 MLS/HR Ondansetron HCl (Zofran Inj) 4 mg Q6H PRN IV 02/03/17 00:30 03/05/17 00:29 Promethazine HCl 12.5 mg/Sodium Chloride 50.5 ml @ 204 mls/hr Q6H PRN IV 02/03/17 00:30 03/05/17 00:29 Metoclopramide HCl (Reglan Inj) 10 mg Q6H PRN IV 02/03/17 00:30 03/05/17 00:29 Hydromorphone HCl (Dilaudid Inj) 0.5 mg Q4H PRN IV 02/03/17 00:30 02/17/17 00:29 Aspirin (Ecotrin Tab) 81 mg QAM PO 02/03/17 09:00 03/05/17 08:59 02/03/17 08:50 81 MG Atorvastatin Calcium (Lipitor Tab) 40 mg DAILY PO 02/03/17 09:00 03/05/17 08:59 02/03/17 08:50 40 MG Clopidogrel Bisulfate (plAVix TAB) 75 mg HS PO 02/03/17 21:00 03/05/17 20:59 Docusate Sodium (coLACE CAP) 100 mg BID PO 02/03/17 09:00 03/05/17 08:59 02/03/17 08:50 100 MG Escitalopram Oxalate (Lexapro Tab) 15 mg QAM PO 02/03/17 09:00 03/05/17 08:59 02/03/17 08:51 15 MG Isosorbide Mononitrate (Imdur Ext Rel Tab) 90 mg DAILY PO 02/03/17 09:00 03/05/17 08:59 02/03/17 08:51 90 MG Lactobacillus Acidophilus (Floranex Tab) 4 tab DAILY PO 02/03/17 09:00 03/05/17 08:59 02/03/17 08:51 4 TAB Multivitamins/ Minerals (Multivitamin W/ Minerals Tab) 1 tab QAM PO 02/03/17 09:00 03/05/17 08:59 02/03/17 08:50 1 TAB Nitroglycerin (Nitrostat Tab) 0.4 mg UD PRN UT 02/03/17 00:30 03/05/17 00:29 Pantoprazole Sodium (Protonix Tab) 40 mg BID PO 02/03/17 09:00 03/05/17 08:59 02/03/17 08:51 40 MG Senna/Docusate Sodium (Senokot S Tab) 1 tab HS PO 02/03/17 21:00 03/05/17 20:59 Oxycodone/ Acetaminophen (Percocet 5-325mg Tab) 1 tab Q6H PRN PO 02/03/17 00:30 02/17/17 00:29 Miscellaneous (Iv Fluids Completed) 1 ea PRN PRN N/A 02/03/17 00:45 02/03/18 00:44 Lorazepam (Ativan Tab) 0.5 mg TID PRN PO 02/03/17 02:30 03/05/17 02:29 Insulin Glargine (Lantus Solostar Pen) 10 units DAILY SC 02/03/17 09:00 03/06/17 08:59 02/03/17 09:01 10 UNITS Lisinopril (Zestril Tab) 20 mg NOW STAT PO 02/03/17 09:41 02/03/17 09:42 UNV Lisinopril (Zestril Tab) 10 mg QAM PO 02/04/17 09:00 03/06/17 08:59 UNV Objective Vital Signs Date Time Temp Pulse Resp B/P (MAP) Pulse Ox O2 Delivery O2 Flow Rate FiO2 02/03/17 08:02 36.4 76 20 174/89 (117) 97 02/03/17 07:45 97 Room Air 02/03/17 01:21 36.4 76 20 164/80 95 Room Air 02/03/17 00:34 74 14 177/82 100 02/03/17 00:00 78 14 183/76 99 Room Air 02/02/17 23:37 72 12 184/89 96 Room Air 02/02/17 23:26 70 14 193/84 94 Room Air 02/02/17 22:38 87 12 151/90 96 Room Air 02/02/17 22:19 69 02/02/17 21:14 72 12 196/77 97 Room Air 02/02/17 21:05 82 02/02/17 21:02 82 02/02/17 20:57 36.4 67 12 213/121 97 Room Air Physical Exam General Appearance: no apparent distress ENT: + pertinent finding (+hirsute) Respiratory/Chest: lungs clear, normal breath sounds, no respiratory distress, no accessory muscle use Cardiovascular: regular rate, rhythm, no edema, no murmur Abdomen: non tender, soft, + abnormal bowel sounds (decreased bowel sounds) Neurologic/Psychiatric: no motor/sensory deficits, alert, normal mood/affect ( in good spirits), oriented x 3 Skin: normal color Lymphatic: no adenopathy Laboratory Results Last 24 Hours Test 02/02/17 21:05 02/02/17 22:05 02/03/17 01:47 02/03/17 06:09 White Blood Count 10.56 K/uL 10.13 K/uL Red Blood Count 4.75 M/uL 4.65 M/uL Hemoglobin 13.4 g/dL 13.4 g/dL Hematocrit 40.9 % 39.7 % Mean Corpuscular Volume 86.1 fL 85.4 fL Mean Corpuscular Hemoglobin 28.2 pg 28.8 pg Mean Corpuscular Hemoglobin Concent 32.8 g/dl 33.8 g/dl Platelet Count 204 K/uL 204 K/uL Mean Platelet Volume 10.4 fL 10.7 fL Neutrophils (%) (Auto) 60.2 % 73.1 % Lymphocytes (%) (Auto) 36.6 % 23.5 % Monocytes (%) (Auto) 2.6 % 2.9 % Eosinophils (%) (Auto) 0.2 % 0.0 % Basophils (%) (Auto) 0.2 % 0.1 % Neutrophils # (Auto) 6.37 K/uL 7.41 K/uL Lymphocytes # (Auto) 3.86 K/uL 2.38 K/uL Monocytes # (Auto) 0.27 K/uL 0.29 K/uL Eosinophils # (Auto) 0.02 K/uL 0.00 K/uL Basophils # (Auto) 0.02 K/uL 0.01 K/uL RDW Standard Deviation 39.6 fL 39.1 fL RDW Coefficient of Variation 12.4 % 12.5 % Immature Granulocyte % (Auto) 0.2 % 0.4 % Immature Granulocyte # (Auto) 0.02 K/uL 0.04 K/uL Prothrombin Time 10.8 SECONDS Prothromb Time International Ratio 1.0 Activated Partial Thromboplast Time 25.7 SECONDS Partial Thromboplastin Ratio 1.0 Sodium Level 136 mmol/L 134 mmol/L Potassium Level 4.4 mmol/L 4.2 mmol/L Chloride Level 100 mmol/L 97 mmol/L Carbon Dioxide Level 30 mmol/L 27 mmol/L Anion Gap 6.0 mmol/L 10.0 mmol/L Blood Urea Nitrogen 23 mg/dl 21 mg/dl Creatinine 1.40 mg/dl 1.20 mg/dl Est Creatinine Clear Calc Drug Dose 45.0 ml/min 52.5 ml/min Estimated GFR () 46.2 55.7 Estimated GFR (Non- 39.9 48.1 BUN/Creatinine Ratio 16.6 17.8 Random Glucose 251 mg/dl 292 mg/dl Calcium Level 9.9 mg/dl 9.8 mg/dl Magnesium Level 1.7 mg/dl 2.3 mg/dl Total Bilirubin 0.6 mg/dl Aspartate Amino Transf (AST/SGOT) 18 U/L Alanine Aminotransferase (ALT/SGPT) 19 U/L Alkaline Phosphatase 55 U/L Troponin I < 0.015 ng/ml Total Protein 8.7 gm/dl Albumin 3.7 gm/dl Globulin 5.0 gm/dl Albumin/Globulin Ratio 0.7 Lipase 135 U/L Urine Color YELLOW Urine Appearance CLEAR Urine pH 6.0 Urine Specific [place] 1.016 Urine Protein TRACE Urine Glucose (UA) 2+ Urine Ketones TRACE Urine Occult Blood NEG Urine Nitrite NEG Urine Bilirubin NEG Urine Urobilinogen NEG Urine Leukocyte Esterase NEG Urine WBC (Auto) 1-5 /hpf Urine RBC (Auto) 0-4 /hpf Urine Hyaline Casts (Auto) 0 /lpf Urine Epithelial Cells (Auto) 5-10 /lpf Urine Bacteria (Auto) NEG Bedside Glucose 290 mg/dl Test 02/03/17 07:40 Bedside Glucose 287 mg/dl Assessment and Plan This is a 61 year old female with PMH of uncontrolled diabetes mellitus, requiring insulin with multiple complications including neuropathy and nephropathy, chronic kidney disease stage III, hx. of CAD s/p CABG and PCI/stent , hx. of ventricular fibrillation s/p implantable cardioverter/defibrillator, HTN, HLD, diastolic CHF, severe SACHA not on CPAP Generalized Abdominal Pain Possibly Gastroparesis multiple hospital admissions for similar issues was last here in December 2016 due to long-term insulin dependent DM2 - presumed gastroparesis will do Zofran and Reglan PRN advance diet from clears to full and advance as tolerated likely discharge home on February 04 Acute Kidney Injury superimposed on CKD stage 3 creat from 1.4 down to 1.2 seems to be back to baseline, encouraged PO intake restart Lisinopril Uncontrolled HTN blood pressure elevated restarted Lisinopril Insulin Dependent DM2, better controlled Ha1c in August 2016 > 9.0% repeat Ha1c in December 2016 shows an Ha1c of 7.4% continue Lantus 10 units and sliding scale Adrenal Incidentaloma CT shows an adrenal cyst would recommend outpatient lab work to check if it is functioning if we need to remove this - will have to f/u at [facility] or tertiary center, as per general surgery here CAD s/p CABG and PCI continue current cardiac medications Hx. of V. Fib s/p ICD DVT ppx subq heparin FULL CODE
[2017-02-03] MEDS ORDERED: BISACODYL 5 MG TABEC PO ONE (12:45)
[2017-02-03] MEDS: ONDANSETRON INJ 2 MG/ML 2 ML VIAL IV PRN (12:55)
[2017-02-03] MEDS ORDERED: DOCUSATE SODIUM/SENNA 50/8.6MG TAB PO SCH (21:00)
[2017-02-03] MEDS ORDERED: CLOPIDOGREL BISULFATE 75 MG TAB PO SCH (21:00)
[2017-02-04 02:57] VITALS: BP 163/83; PULSE 66
[2017-02-04] MEDS: HEPARIN SOD 5000 UNIT/0.5 ML CARP SQ SCH ×2 (06:31→14:14)
[2017-02-04 07:09] VITALS: BP 161/74; PULSE 71; TEMP 36.6; O2SAT 98
[2017-02-04 07:40] LABS: BUN/CREATININE RATIO 22.6 (10-20); CALCIUM 9.6 mg/dl (8.5-10.1); CREATININE 1.1 mg/dl (0.60-1.20); POTASSIUM 4.1 mmol/L (3.5-5.1)
[2017-02-04] MEDS ORDERED: INSULIN GLARGINE SOLOSTAR 100 UNITS/ML 3 ML PEN SC SCH ×2 (09:00→21:00)
[2017-02-04] MEDS ORDERED: LISINOPRIL 10 MG TAB PO SCH (09:00)
[2017-02-04] MEDS ORDERED: POLYETHYLENE (MIRALAX) 17 GM PACK PO SCH (09:00)
[2017-02-04] MEDS: ASPIRIN 81 MG ECTAB PO SCH (09:06)
[2017-02-04] MEDS: CEROVITE ADV FORMULA TAB PO SCH (09:06)
[2017-02-04] MEDS: LACTOBACILLUS ACIDOPHILUS (FLORANEX) TAB PO SCH (09:06)
[2017-02-04] MEDS: METOPROLOL SUCC 50MG EXT REL TAB PO SCH (09:06)
[2017-02-04] MEDS: ATORVASTATIN 40 MG TAB PO SCH (09:06)
[2017-02-04] MEDS: ESCITALOPRAM OXALATE 10 MG TAB PO SCH (09:07)
[2017-02-04] MEDS: DOCUSATE SODIUM 100 MG CAP PO SCH (09:07)
[2017-02-04] MEDS: ISOSORBIDE MONONITRATE 30 MG TABCR PO SCH (09:07)
[2017-02-04] MEDS: PANTOprazole SOD 40 MG TAB PO SCH (09:08)
[2017-02-04] MEDS: INSULIN ASPART 100 UNITS/ML 3 ML PEN SC SCH ×3 (09:12→17:23)
[2017-02-04] MEDS: INSULIN GLARGINE SOLOSTAR 100 UNITS/ML 3 ML PEN SC SCH (09:12)
[2017-02-04] MEDS: ONDANSETRON INJ 2 MG/ML 2 ML VIAL IV PRN (09:20)
[2017-02-04] MEDS ORDERED: DIAZEPAM 2MG TAB PO ONE (09:45)
--- NOTE | 2017-02-04 11:10 | Progress Note ---
Subjective Date of Service: Feb 04, 2017. Subjective Pt evaluation today including: conversation w/ patient, physical exam, lab review, review of studies, review of inpatient medication list Saw/examined the patient in room 256 Tolerating full liquid for breakfast Mild dizziness this morning, though seated in chair in no distress Problem List Medical Problems: (1) Adrenal nodule Status: Acute (2) Altered mental status Status: Acute (3) Ambulatory dysfunction Status: Acute (4) Blood in stool Status: Acute (5) Cardiomegaly Status: Acute (6) Chronic abdominal pain Status: Acute (7) Contusion of multiple sites Status: Acute (8) Dehydration Status: Acute (9) Dehydration Status: Acute (10) Dehydration Status: Acute (11) Dizziness Status: Acute (12) Epigastric abdominal pain Status: Acute (13) Fall Status: Acute (14) Hyperglycemia Status: Acute (15) Hyperglycemia Status: Acute (16) Influenza-like symptoms Status: Acute (17) Intractable nausea and vomiting Status: Acute (18) Vomiting Status: Acute Social History Problems: (1) Diabetes mellitus Status: Chronic Review of Systems Constitutional: No fever, No chills Respiratory: No shortness of breath Cardiac: No chest pain Abdomen: No pain, No nausea, No vomiting, No diarrhea Heme: No abnormal bleeding/bruising Medications Current Inpatient Medications Medications (Trade) Dose Ordered Sig/Tera Route Start Time Stop Time Status Last Admin Dose Admin Metoprolol Succinate (Toprol Xl Tab) 50 mg BID PO 02/03/17 09:00 03/05/17 08:59 02/04/17 09:06 50 MG Heparin Sodium (Porcine) (Heparin Sq 5000 Unit/0.5ml) 5,000 unit Q8H SQ 02/03/17 06:00 03/05/17 05:59 02/04/17 06:31 5,000 UNIT Acetaminophen (Tylenol Tab) 650 mg Q4H PRN PO 02/03/17 00:30 03/05/17 00:29 02/03/17 16:10 650 MG Insulin Aspart (novoLOG ASPART) SLIDING SCALE If C... ACHS SC 02/03/17 06:30 03/05/17 06:59 02/04/17 09:12 8 UNITS Glucose (Glucose 40% Gel) 15-30 GRAMS 15 GRAMS... UD PRN PO 02/03/17 00:30 03/05/17 00:29 Glucose (Glucose Chew Tab) 4-8 Tablets 4 Tabl... UD PRN PO 02/03/17 00:30 03/05/17 00:29 Dextrose (Dextrose 50% 50ML Syringe) 25-50ML OF 50% DW IV FOR... UD PRN IV 02/03/17 00:30 03/05/17 00:29 Glucagon (Glucagon Inj) 1 mg UD PRN SQ 02/03/17 00:30 03/05/17 00:29 Ondansetron HCl (Zofran Inj) 4 mg Q6H PRN IV 02/03/17 00:30 03/05/17 00:29 02/04/17 09:20 4 MG Promethazine HCl 12.5 mg/Sodium Chloride 50.5 ml @ 204 mls/hr Q6H PRN IV 02/03/17 00:30 03/05/17 00:29 Metoclopramide HCl (Reglan Inj) 10 mg Q6H PRN IV 02/03/17 00:30 03/05/17 00:29 Hydromorphone HCl (Dilaudid Inj) 0.5 mg Q4H PRN IV 02/03/17 00:30 02/17/17 00:29 Aspirin (Ecotrin Tab) 81 mg QAM PO 02/03/17 09:00 03/05/17 08:59 02/04/17 09:06 81 MG Atorvastatin Calcium (Lipitor Tab) 40 mg DAILY PO 02/03/17 09:00 03/05/17 08:59 02/04/17 09:06 40 MG Clopidogrel Bisulfate (plAVix TAB) 75 mg HS PO 02/03/17 21:00 03/05/17 20:59 02/03/17 21:23 75 MG Docusate Sodium (coLACE CAP) 100 mg BID PO 02/03/17 09:00 03/05/17 08:59 02/04/17 09:07 100 MG Escitalopram Oxalate (Lexapro Tab) 15 mg QAM PO 02/03/17 09:00 03/05/17 08:59 02/04/17 09:07 15 MG Isosorbide Mononitrate (Imdur Ext Rel Tab) 90 mg DAILY PO 02/03/17 09:00 03/05/17 08:59 02/04/17 09:07 90 MG Lactobacillus Acidophilus (Floranex Tab) 4 tab DAILY PO 02/03/17 09:00 03/05/17 08:59 02/04/17 09:06 4 TAB Multivitamins/ Minerals (Multivitamin W/ Minerals Tab) 1 tab QAM PO 02/03/17 09:00 03/05/17 08:59 02/04/17 09:06 1 TAB Nitroglycerin (Nitrostat Tab) 0.4 mg UD PRN UT 02/03/17 00:30 03/05/17 00:29 Pantoprazole Sodium (Protonix Tab) 40 mg BID PO 02/03/17 09:00 03/05/17 08:59 02/04/17 09:08 40 MG Senna/Docusate Sodium (Senokot S Tab) 1 tab HS PO 02/03/17 21:00 03/05/17 20:59 02/03/17 21:23 1 TAB Oxycodone/ Acetaminophen (Percocet 5-325mg Tab) 1 tab Q6H PRN PO 02/03/17 00:30 02/17/17 00:29 02/03/17 17:23 1 TAB Miscellaneous (Iv Fluids Completed) 1 ea PRN PRN N/A 02/03/17 00:45 02/03/18 00:44 02/03/17 15:51 1 EA Lorazepam (Ativan Tab) 0.5 mg TID PRN PO 02/03/17 02:30 03/05/17 02:29 Insulin Glargine (Lantus Solostar Pen) 10 units DAILY SC 02/03/17 09:00 03/06/17 08:59 02/04/17 09:12 10 UNITS Lisinopril (Zestril Tab) 10 mg QAM PO 02/04/17 09:00 03/06/17 08:59 02/04/17 09:06 10 MG Polyethylene (Miralax Powder Packet) 17 gm DAILY PO 02/04/17 09:00 03/06/17 08:59 02/04/17 09:08 17 GM Objective Vital Signs Date Time Temp Pulse Resp B/P (MAP) Pulse Ox O2 Delivery O2 Flow Rate FiO2 02/04/17 08:10 Room Air 02/04/17 07:09 36.6 71 18 161/74 (103) 98 Room Air 02/04/17 02:57 66 163/83 (109) 02/03/17 23:59 Room Air 02/03/17 23:41 36.8 60 18 171/78 (109) 98 Room Air 02/03/17 21:21 65 180/85 (116) 02/03/17 16:19 36.7 60 18 174/80 (111) 100 Room Air 02/03/17 16:00 97 Room Air 02/03/17 12:00 36.5 76 18 156/82 (106) 97 Room Air Physical Exam General Appearance: no apparent distress Respiratory/Chest: lungs clear, normal breath sounds, no respiratory distress, no accessory muscle use Cardiovascular: regular rate, rhythm, no edema, no murmur Abdomen: normal bowel sounds, non tender, soft Laboratory Results Last 24 Hours Test 02/03/17 11:22 02/03/17 16:37 02/03/17 20:56 02/04/17 06:21 Bedside Glucose 270 mg/dl 244 mg/dl 294 mg/dl Sodium Level 132 mmol/L Potassium Level 4.1 mmol/L Chloride Level 98 mmol/L Carbon Dioxide Level 28 mmol/L Anion Gap 6.0 mmol/L Blood Urea Nitrogen 25 mg/dl Creatinine 1.10 mg/dl Est Creatinine Clear Calc Drug Dose 57.3 ml/min Estimated GFR () 61.9 Estimated GFR (Non- 53.4 BUN/Creatinine Ratio 22.6 Random Glucose 279 mg/dl Calcium Level 9.6 mg/dl Test 02/04/17 07:25 Bedside Glucose 286 mg/dl Assessment and Plan This is a 61 year old female with PMH of uncontrolled diabetes mellitus, requiring insulin with multiple complications including neuropathy and nephropathy, chronic kidney disease stage III, hx. of CAD s/p CABG and PCI/stent , hx. of ventricular fibrillation s/p implantable cardioverter/defibrillator, HTN, HLD, diastolic CHF, severe SACHA not on CPAP Generalized Abdominal Pain Possibly Gastroparesis 02/04 advance diet for lunch today if tolerating well, can d/c home 02/03 multiple hospital admissions for similar issues was last here in December 2016 due to long-term insulin dependent DM2 - presumed gastroparesis will do Zofran and Reglan PRN advance diet from clears to full and advance as tolerated likely discharge home on February 04 Acute Kidney Injury superimposed on CKD stage 3 creat from 1.4 down to 1.2 seems to be back to baseline, encouraged PO intake restart Lisinopril Uncontrolled HTN blood pressure elevated restarted Lisinopril Insulin Dependent DM2, better controlled Ha1c in August 2016 > 9.0% repeat Ha1c in December 2016 shows an Ha1c of 7.4% continue Lantus 10 units and sliding scale Adrenal Incidentaloma CT shows an adrenal cyst would recommend outpatient lab work to check if it is functioning if we need to remove this - will have to f/u at [facility] or tertiary center, as per general surgery here CAD s/p CABG and PCI continue current cardiac medications Hx. of V. Fib s/p ICD DVT ppx subq heparin FULL CODE
[2017-02-04] MEDS ORDERED: INSULIN ASPART 100 UNITS/ML 3 ML PEN SC ONE (12:00)
[2017-02-04 12:11] VITALS: BP 160/81; PULSE 62
--- NOTE | 2017-02-04 15:51 | Discharge Instructions ---
Discharge Instructions Date of Service Feb 04, 2017. Admission Reason for Admission: Abdominal Pain Discharge Discharge Diagnosis / Problem: Diabetic Gastroparesis Discharge Goals Goal(s): Decrease discomfort, Improve function, Diagnostic testing, Therapeutic intervention Activity Recommendations Activity Limitations: resume your previous activity . Instructions / Follow-Up Instructions / Follow-Up Please follow up with Dr. Ramirez on February 12 at 2:45PM Continue current medications - if you feel nauseous, try liquids and soft foods for a few days prior to eating your normal diet Current Hospital Diet Patient's current hospital diet: Diabetes Type 2 Diet Discharge Diet Recommended Diet: Diabetes Type 2 Diet Pending Studies Studies pending at discharge: no Medical Emergencies . Who to Call and When: Medical Emergencies: If at any time you feel your situation is an emergency, please call 911 immediately. . Non-Emergent Contact Non-Emergency issues call your: Primary Care Provider . . "Provider Documentation" section prepared by Caryn Baptiste. . VTE Core Measure Inpt VTE Proph given/why not?: Unfractionated heparin SQ
--- NOTE | 2017-02-04 15:54 | Discharge Summary ---
Discharge Summary Date of Service Feb 04, 2017. Discharge Summary Admission Date: Feb 03, 2017 at 00:10 Discharge Date: Feb 04, 2017 Discharge Disposition: Home Principal Diagnosis: Diabetic Gastroparesis Medication Reconciliation Continued Medications: Albuterol Sulfate (Proair Respiclick) 108 Mcg/Act Aer 2 PUFFS INH Q4H PRN for Wheezing Aspirin (Aspirin Ec) 81 Mg Tab 81 MG PO QAM Atorvastatin (Atorvastatin Calcium) 40 Mg Tab 40 MG PO DAILY Calcium Carbonate-Cholecalcife (Caltrate 600+D) 1 Tab Tab 1 TABLET PO BID Clopidogrel Bisulfate (Plavix) 75 Mg Tab 75 MG PO HS Docusate Sodium (Docusate Sodium) 100 Mg Cap 100 MG PO BID Escitalopram Oxalate (Lexapro) 10 Mg Tab 15 MG PO QAM, TAB Hydroxyzine Hcl (Atarax) 25 Mg Tab 25 MG PO HS, TAB Insulin Aspart (Novolog Flexpen) 100 Units/Ml Inj 30 UNITS SC AC DO NOT USE IF SHE DOESN'T EAT Insulin Glargine (Lantus Solostar) 100 Unit/Ml Inj 30 UNITS SC AMPM, PEN Isosorbide Mononitrate Ext Rel (Imdur Ext Rel) 30 Mg Tabcr 90 MG PO DAILY, #90 Lactobacillus (Floranex) 1 Tab Tab 1 TAB PO DAILY Lisinopril (Lisinopril) 5 Mg Tab 15 MG PO QAM Lorazepam (Ativan) 0.5 Mg Tab 0.5 MG PO TID PRN for Anxiety, TAB Magnesium Chloride (Mag64) 535 Mg Tab 1 TAB PO TID Metoprolol Succinate (Metoprolol Succinate ER) 50 Mg Tabcr 50 MG PO BID Multivitamins/Minerals (Mvi With Minerals) Tab 1 TABLET PO QAM, TAB Nitroglycerin (Nitrostat) 0.4 Mg Tab 0.4 MG UT UD PRN for Chest Pain, 0 Refills Pantoprazole (Protonix) 40 Mg Tab 40 MG PO BID, 0 Refills Sennosides-Docusate Sodium (Senna Plus) 1 Tab Tab 1 TAB PO HS Admission Information HPI (per Admitting provider): DICTATED BY: Dereje Pedraza M.D. *NOTICE TO RECEIVING LIBERTARIAN/AGENCY This information is strictly Confidential and protected under [place] law. [place] law prohibits you from making any further disclosure of this information unless further disclosure is expressly permitted by the written consent of the person to whom it pertains or is authorized by law. A general authorization for the release of medical or other information is not sufficient for this purpose. Hospital accepts no responsibility if the information is made available to any other person, INCLUDING THE PATIENT. DATE OF ADMISSION: 02/03/2017 PRIMARY CARE PHYSICIAN: Dr. Rubin. CHIEF COMPLAINT: Abdominal pain, nausea and vomiting. HISTORY OF PRESENT ILLNESS: History obtained from the patient and records. Medical history is significant for chronic diastolic heart failure, CAD status post CABG/stenting, hypertension, hyperlipidemia, asthma, past tobacco abuse, mood disorder, DM2 insulin requiring, history VT/VF status post ICD. Recent confinement last month for nausea, vomiting, abdominal pain, possible diabetic gastroparesis. Yesterday, the patient noted achy lower abdominal pain, nausea, vomiting symptoms. Good bowel movement. No chest pain, no shortness of breath, no fever, no chills , no headache, intractable symptoms at the Emergency Room. MEDICAL HISTORY: As above. SURGERIES: CABG, ICD HOME MEDICATIONS: Include Protonix, Senokot, Ativan, lisinopril, metoprolol, multivitamins, Nitrostat, Lexapro, Atarax, NovoLog, Lantus, Imdur ER, aspirin, Proair, atorvastatin, Plavix ALLERGIES: BEE STINGS, LIDOCAINE, MORPHINE, TRAZODONE, TRAMADOL. FAMILY HISTORY: Heart disease. PERSONAL AND SOCIAL HISTORY: -[place] ethnicity. past tobacco abuse. No chronic alcohol intake. 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 REVIEW OF SYSTEMS: As per HPI, all other ROS negative. PHYSICAL EXAMINATION: VITAL SIGNS: Blood pressure was noted to be 151/90, pulse rate 87, RR 12, temperature 37, sats 96 on room air. GENERAL: Noted to be obese, lethargic. No respiratory distress. SKIN: Normal color. HEENT: [place] palpebral conjunctivae. Dry mucosa. NECK: Short neck. LUNGS: Decreased effort. HEART: Regular rate and rhythm. ABDOMEN: Epigastric tenderness, some distention. EXTREMITIES: No edema. no tenderness NEUROLOGIC: No gross focality except for some lethargy. LABS: Hemoglobin was noted to be 13.4, hematocrit 40 WBC 10 platelets 204. Sodium 136, potassium 4.4, chloride 100, CO2 30, BUN 20, creatinine 1.4, glucose 290. Hemoglobin A1c from December [address] abdomen and pelvis showed bilateral nephrolithiasis, no acute process, 2.5 left adrenal nodule unchanged from November 2016, indeterminate, moderate amount of stool within the rectum. UA ketones. ASSESSMENT: 1. Abdominal pain, nausea, vomiting. Recurrent symptoms ? question of DM gastroparesis no previous diagnosis in the past. 2. Acute renal failure secondary to above. 3. Hypertension, slightly elevated 4. Coronary artery disease status post coronary artery bypass graft. 5. Chronic diastolic heart failure. The patient on the dry side. 6. History of paroxysmal V-tach status post ICD. 7. DM2 insulin requiring, much improved control as of recent outpatient hemoglobin A1c px currently hyperglycemic secondary to missed nighttime insulin. 8. Past tobacco abuse. PLAN: Observation GMF analgesia, antiemetics, judicious narcotic use. Monitor creatinine response to IV fluids. Hold TAMARA inhibitor for now until creatinine at baseline. GI consult if the patient continues to have intractable symptoms. Basal insulin adjusted for clear liquid diet for now, ISS BG goal 140-180. DVT prophylaxis, Heparin subQ. Full code. Hospital Course This is a 61 year old female with PMH of uncontrolled diabetes mellitus, requiring insulin with multiple complications including neuropathy and nephropathy, chronic kidney disease stage III, hx. of CAD s/p CABG and PCI/stent , hx. of ventricular fibrillation s/p implantable cardioverter/defibrillator, HTN, HLD, diastolic CHF, severe SACHA not on CPAP Generalized Abdominal Pain Possibly Gastroparesis 02/04 advance diet for lunch today if tolerating well, can d/c home 02/03 multiple hospital admissions for similar issues was last here in December 2016 due to long-term insulin dependent DM2 - presumed gastroparesis will do Zofran and Reglan PRN advance diet from clears to full and advance as tolerated likely discharge home on February 04 Acute Kidney Injury superimposed on CKD stage 3 creat from 1.4 down to 1.2 seems to be back to baseline, encouraged PO intake restart Lisinopril Uncontrolled HTN blood pressure elevated restarted Lisinopril Insulin Dependent DM2, better controlled Ha1c in August 2016 > 9.0% repeat Ha1c in December 2016 shows an Ha1c of 7.4% continue Lantus 10 units and sliding scale Adrenal Incidentaloma CT shows an adrenal cyst would recommend outpatient lab work to check if it is functioning if we need to remove this - will have to f/u at [place] or tertiary center, as per general surgery here CAD s/p CABG and PCI continue current cardiac medications Hx. of V. Fib s/p ICD DVT ppx subq heparin FULL CODE Total time spent on discharge = 20 minutes This includes examination of the patient, discharge planning, medication reconciliation, and communication with other providers. Discharge Instructions Please follow up with Dr. Ramirez on February 12 at 2:45PM Continue current medications - if you feel nauseous, try liquids and soft foods for a few days prior to eating your normal diet
[2017-02-04 15:56] VITALS: BP 164/68; PULSE 59; TEMP 36.5; O2SAT 97
[2017-02-04 16:06] VITALS: BP 164/68; PULSE 59; TEMP 36.5; O2SAT 97
== END 2017-02-04 18:06 | disposition home or self-care (01) ==
LOC: EDBD 20:55 → C.EDC 20:56 → C.MS2W 02-03 00:10 → ENRESERV 02-03 00:22
PROVIDERS: ADMIT Family Medicine; ATTEND Family Medicine
DX: E11.43 Type 2 diabetes mellitus with diabetic autonomic (poly)neuropathy (principal); K31.84 Gastroparesis; E11.22 Type 2 diabetes mellitus with diabetic chronic kidney disease; I13.0 Hypertensive heart and chronic kidney disease with heart failure and stage 1 through stage 4 chronic kidney disease, or unspecified chronic kidney disease; E11.40 Type 2 diabetes mellitus with diabetic neuropathy, unspecified; E11.319 Type 2 diabetes mellitus with unspecified diabetic retinopathy without macular edema; E11.21 Type 2 diabetes mellitus with diabetic nephropathy; N17.9 Acute kidney failure, unspecified; N18.3 Chronic kidney disease, stage 3 (moderate); I50.30 Unspecified diastolic (congestive) heart failure; I49.01 Ventricular fibrillation; I25.10 Atherosclerotic heart disease of native coronary artery without angina pectoris; E78.5 Hyperlipidemia, unspecified; E27.8 Other specified disorders of adrenal gland; J45.909 Unspecified asthma, uncomplicated; K21.9 Gastro-esophageal reflux disease without esophagitis; G47.33 Obstructive sleep apnea (adult) (pediatric); M35.3 Polymyalgia rheumatica; R26.9 Unspecified abnormalities of gait and mobility; F32.9 Major depressive disorder, single episode, unspecified; E66.9 Obesity, unspecified; Z68.35 Body mass index [BMI] 35.0-35.9, adult; Z95.810 Presence of automatic (implantable) cardiac defibrillator; Z95.1 Presence of aortocoronary bypass graft; Z79.82 Long term (current) use of aspirin; Z79.4 Long term (current) use of insulin; Z79.899 Other long term (current) drug therapy

== ENCOUNTER 2017-04-14 19:14 | Emergency (ER) | payer OTHER ==
[~2017-04-14] VITALS: Ht 160 cm; Wt 91.0 kg
[2017-04-14 19:21] VITALS: TEMP 36.8; Ht 160 cm; Wt 91.0 kg
[2017-04-14] MEDS ORDERED: METOCLOPRAMIDE HCL INJ 5 MG/ML 2 ML VIAL IV STA (19:34)
--- NOTE | 2017-04-14 19:38 | EMERGENCY ROOM VISIT NOTE ---
History Report prepared by Melanie: Too Cabrera Under the Supervision of: Dr. Randell Rojas M.D. First contact with patient: 19:25 Chief Complaint: NAUSEA Stated Complaint: NAUSEA/VOMIT Nursing Triage Summary: patient c/o nasuea since this am that has not resolved. throughout day patient has taken two ODT zofran with no improvement. patient also c/o constipation . History of Present Illness The patient is a 61 year old black female with a past medical history of CAD, CABG, type II diabetes, CHF, HTN, and a hysterectomy who presents to the ED with a cc of dull centralized abdominal pain beginning this morning. Positive nausea and burning with urination. Negative fevers. She woke up this morning not feeling very well. She ate some oatmeal, which she normally does not do, and began having moderate amounts of nausea. She took 2 Zofran that did not help. She denies any recent travel, antibiotic use, or sick contacts. She does not remember when her last bowel movement was. Source of History: patient Onset: this morning Position: abdomen Symptom Intensity: moderate Quality: dull Timing: constant Associated Symptoms: + nausea, + urinary symptoms (burning), No fevers Review of Systems See HPI for pertinent positives and negatives. A total of ten systems were reviewed and were otherwise negative. Past Medical & Surgical Medical Problems: (1) Abdominal pain (2) SABRINA (acute kidney injury) (3) Ambulatory dysfunction (4) Aortocoronary Bypass (5) Asthma, Unspecified (6) CKD (chronic kidney disease), stage III (7) Coronary atherosclerosis of [place] coronary vessel (8) Depression (9) Diab Nany Wo Compl, Type Ii Or Unspec Type, Not Uncntrld (10) Diabetic nephropathy (11) Diabetic retinopathy (12) GERD (gastroesophageal reflux disease) (13) Hypertension Nos (14) Neuropathy in diabetes (15) Obesity, Class II, BMI 35-39.9, with comorbidity (16) Obstructive Sleep Apnea (Adult) (Pediatric) (17) Osteoarthritis (18) Pacemaker (19) Polymyalgia rheumatica (20) Presence of combination internal cardiac defibrillator (ICD) and pacemaker (21) Pure Hypercholesterolem (22) Ventricular fibrillation Surgical Problems: (1) H/O eye surgery (2) History of appendectomy (3) History of cholecystectomy (4) History of hysterectomy (5) History of hysterectomy (6) S/P triple vessel bypass Social History Problems: (1) Diabetes mellitus Family History Diabetes mellitus FATHER BROTHER FH: cancer FH: lung disease FHx: heart disease MOTHER Hypertension MOTHER Kidney disease Kidney stones Social History Smoking Status: Never Smoker Smokeless Tobacco Use: No Alcohol Use: occasionally Drug Use: none Marital Status: Housing Status: lives alone Occupation Status: disabled Current/Historical Medications Scheduled Aspirin (Aspirin Ec), 81 MG PO QAM Atorvastatin (Atorvastatin Calcium), 40 MG PO DAILY Calcium Carbonate-Cholecalcife (Caltrate 600+D), 1 TABLET PO BID Clopidogrel Bisulfate (Plavix), 75 MG PO HS Docusate Sodium (Docusate Sodium), 100 MG PO BID Escitalopram Oxalate (Lexapro), 15 MG PO QAM Hydroxyzine Hcl (Atarax), 25 MG PO HS Insulin Aspart (Novolog Flexpen), 33 UNITS SC AC Insulin Glargine (Lantus Solostar), 33 UNITS SC AMPM Isosorbide Mononitrate Ext Rel (Imdur Ext Rel), 90 MG PO DAILY Lactobacillus (Floranex), 1 TAB PO DAILY Lisinopril (Lisinopril), 15 MG PO QAM Magnesium Chloride (Mag64), 1 TAB PO TID Metoprolol Succinate (Metoprolol Succinate ER), 50 MG PO BID Multivitamins/Minerals (Mvi With Minerals), 1 TABLET PO QAM Pantoprazole (Protonix), 40 MG PO BID Sennosides-Docusate Sodium (Senna Plus), 1 TAB PO HS Scheduled PRN Albuterol Sulfate (Proair Respiclick), 2 PUFFS INH Q4H PRN for Wheezing Lorazepam (Ativan), 0.5 MG PO TID PRN for Anxiety Nitroglycerin (Nitrostat), 0.4 MG UT UD PRN for Chest Pain Allergies Coded Allergies: BEE STING (Verified Allergy, Severe, SWELLING, 02/19/17) Lidocaine (Verified Allergy, Severe, ANAPHYLAXIS, 02/19/17) Morphine (Verified Allergy, Mild, itching, 02/19/17) Tramadol (Verified Allergy, Mild, ITCHING, 02/19/17) Trazodone (Verified Allergy, Mild, ITCHING, 02/19/17) Physical Exam Vital Signs Date Time Temp Pulse Resp B/P (MAP) Pulse Ox O2 Delivery O2 Flow Rate FiO2 04/14/17 21:09 77 20 157/102 96 Room Air 04/14/17 20:05 68 04/14/17 19:21 36.8 62 20 169/91 100 Room Air Physical Exam GENERAL: Awake, alert, well-appearing, NAD HENT: Normocephalic, atraumatic. EYES: Normal conjunctiva. Sclera non-icteric. NECK: Supple. No nuchal rigidity. FROM. RESPIRATORY: CTAB, no rhonchi, wheezing, crackles CARDIAC: RRR, no MRG ABDOMEN: Soft, epigastric and LUQ tenderness. Mild discomfort to the suprapubic area. ND, BS+ MSK: No chest wall TTP, no LE edema. Midline sternotomy scar. Scar over left chest consistent with AICD. NEURO: GCS 14, CN 2-12 intact, moves all 4s on command SKIN: No rash or jaundice noted. Medical Decision & Procedures ER Provider Diagnostic Interpretation: Radiology results as stated below per my review and radiologist interpretation: CHEST ONE VIEW PORTABLE HISTORY: 61 years-old Female epigastric pain acute epigastric abdominal pain. COMPARISON: Chest radiograph 02/02/2017 TECHNIQUE: Portable upright AP view of the chest FINDINGS: Cardiac silhouette is upper limits of normal. Prior median sternotomy. Left pectoral pacer/AICD is noted with leads intact. There is atherosclerosis of the aorta. No pneumothorax, pleural effusion or focal airspace consolidation. Advanced osteoarthritis involves the right shoulder. Bones are grossly intact. IMPRESSION: No acute cardiopulmonary process. The above report was generated using voice recognition software. It may contain grammatical, syntax or spelling errors. Electronically signed by: George Childers M.D. 04/14/2017 8:12 PM Dictated Date/Time: 04/14/2017 8:10 PM ABD/PELVIS IV CONTRAST ONLY HISTORY: 61 years-old Female ab pain, epigastric, LUQ acute generalized abdominal pain. Initial exam. COMPARISON: CT abdomen and pelvis 02/02/2017 TECHNIQUE: Multiple axial CT images of the abdomen and pelvis were obtained following the intravenous administration of 116 mL Optiray 320. A dose lowering technique was used consistent with the principals of MICHAEL. FINDINGS: Lung bases are generally clear. There is no pneumoperitoneum. Imaged inferior cardiac chambers are enlarged with pacer leads overlying the right atrium and right ventricle. Coronary arterial calcifications are also noted. Prior median sternotomy. Prior cholecystectomy. Mild prominence of the common bile duct is seen, 6.5 mm which measures in the upper limits of normal, likely secondary to postcholecystectomy state. The liver, spleen and right adrenal gland are unremarkable. There is moderate diffuse pancreatic atrophy. Hyperattenuating 2.7 x 2.5 cm left adrenal nodule appears unchanged in size from comparison dating back to 11/27/2016. Multiple bilateral nephrolithiasis redemonstrated with an 8 mm calculus noted involving the interpolar right kidney. No ureteral calculi or hydronephrosis identified. Urinary bladder is unremarkable. Prior hysterectomy. Moderate mixed plaquing of the abdominal aorta. No bulky retroperitoneal adenopathy. Scattered nonenlarged paratracheal lymph nodes are nonspecific and likely reactive, unchanged. Small sliding-type hiatal hernia. Mild wall thickening of the pylorus/antrum likely secondary to partial distention. No bowel obstruction. There is mild wall thickening with partial distention noted involving the colon at the rectosigmoid junction without significant surrounding inflammatory stranding. The appendix is not seen. No secondary signs of acute appendicitis. Soft tissues are unremarkable. IMPRESSION: 1. Mild wall thickening of the colon at the descending sigmoid junction without significant inflammatory stranding may be secondary to partial distention or mild colitis. 2. Unchanged indeterminate left adrenal nodule, stable in size dating back to 11/27/2016. 3. Prior cholecystectomy and hysterectomy. The above report was generated using voice recognition software. It may contain grammatical, syntax or spelling errors. Electronically signed by: George Childers M.D. 04/14/2017 9:50 PM Dictated Date/Time: 04/14/2017 9:39 PM Laboratory Results 04/14/17 20:25 Red Blood Count 4.41, Mean Corpuscular Volume 85.7, Mean Corpuscular Hemoglobin 28.3, Mean Corpuscular Hemoglobin Concent 33.1, Mean Platelet Volume 10.3, Neutrophils (%) (Auto) 70.0, Lymphocytes (%) (Auto) 26.8, Monocytes (%) (Auto) 2.7, Eosinophils (%) (Auto) 0.0, Basophils (%) (Auto) 0.2, Neutrophils # (Auto) 6.80, Lymphocytes # (Auto) 2.60, Monocytes # (Auto) 0.26, Eosinophils # (Auto) 0.00, Basophils # (Auto) 0.02 04/14/17 20:25 Test 04/14/17 20:25 04/14/17 20:31 White Blood Count 9.71 K/uL (4.8-10.8) Red Blood Count 4.41 M/uL (4.2-5.4) Hemoglobin 12.5 g/dL (12.0-16.0) Hematocrit 37.8 % (37-47) Mean Corpuscular Volume 85.7 fL (80-100) Mean Corpuscular Hemoglobin 28.3 pg (25-34) Mean Corpuscular Hemoglobin Concent 33.1 g/dl (32-36) Platelet Count 218 K/uL (130-400) Mean Platelet Volume 10.3 fL (7.4-10.4) Neutrophils (%) (Auto) 70.0 % Lymphocytes (%) (Auto) 26.8 % Monocytes (%) (Auto) 2.7 % Eosinophils (%) (Auto) 0.0 % Basophils (%) (Auto) 0.2 % Neutrophils # (Auto) 6.80 K/uL (1.4-6.5) Lymphocytes # (Auto) 2.60 K/uL (1.2-3.4) Monocytes # (Auto) 0.26 K/uL (0.11-0.59) Eosinophils # (Auto) 0.00 K/uL (0-0.5) Basophils # (Auto) 0.02 K/uL (0-0.2) RDW Standard Deviation 39.7 fL (36.4-46.3) RDW Coefficient of Variation 12.7 % (11.5-14.5) Immature Granulocyte % (Auto) 0.3 % Immature Granulocyte # (Auto) 0.03 K/uL (0.00-0.02) Prothrombin Time 10.7 SECONDS (9.0-12.0) Prothromb Time International Ratio 1.0 (0.9-1.1) Activated Partial Thromboplast Time 24.5 SECONDS (21.0-31.0) Partial Thromboplastin Ratio 0.9 Est Creatinine Clear Calc Drug Dose 51.4 ml/min Estimated GFR () 55.7 Estimated GFR (Non- 48.1 BUN/Creatinine Ratio 16.3 (10-20) Lactic Acid Level 2.2 mmol/L (0.4-2.0) Calcium Level 10.1 mg/dl (8.5-10.1) Total Bilirubin 0.4 mg/dl (0.2-1) Direct Bilirubin 0.1 mg/dl (0-0.2) Aspartate Amino Transf (AST/SGOT) 17 U/L (15-37) Alanine Aminotransferase (ALT/SGPT) 18 U/L (12-78) Alkaline Phosphatase 70 U/L (45-117) Troponin I < 0.015 ng/ml (0-0.045) Total Protein 8.7 gm/dl (6.4-8.2) Albumin 3.6 gm/dl (3.4-5.0) Lipase 59 U/L (73-393) Bedside Hemoglobin 13.3 g/dl (12.0-16.0) Bedside Hematocrit 39 % (37-47) Bedside Sodium 140 mEq/L (135-144) Bedside Potassium 4.9 mEq/L (3.3-5.0) Bedside Chloride 99 mEq/L (101-112) Bedside Total CO2 31 mEq/l (24-31) Anion Gap 16.0 mmol/L (16-25) Bedside Blood Urea Nitrogen 22 mg/dl (7-18) Bedside Creatinine 1.0 mg/dl (0.6-1.3) Bedside Glucose (other) 168 mg/dl (70-99) Bedside Ionized Calcium (Sarah) 1.22 mmol/l (1.12-1.32) Laboratory results reviewed by me Medications Administered Medications (Trade) Dose Ordered Sig/[facility] Route Start Time Stop Time Status Last Admin Dose Admin Metoclopramide HCl (Reglan Inj) 10 mg NOW STAT IV 04/14/17 19:34 04/14/17 19:37 DC 04/14/17 20:40 10 MG ECG Indication: nausea Rate (beats per minute): 68 Rhythm: normal sinus Findings: Q waves (3 and aVF), other (Normal intervals, no other STS changes or t-wave inversions) ED Course 1924: The patient was evaluated in room A3. A complete history and physical exam was performed. 2229: I reevaluated the patient. Discussed results and discharge instructions: She verbalized understanding and agreement. The patient is ready for discharge. Medical Decision The patient is a 61 year old black female with a past medical history of a CAD s /p CABG, HTN, HLD, DM2, CHF, HTN and a hysterectomy who presents to the ED with a cc of dull centralized abdominal pain beginning this morning. Positive nausea and burning with urination. Negative fevers. Differential diagnosis: Etiologies such as appendicitis, diverticulitis, PUD, biliary pathology, UTI, pancreatitis, obstruction, mesenteric ischemia, aortic pathology, infections, inflammatory bowel disease, renal colic, atypical chest pain, as well as others were entertained. Patient was seen and evaluated the bedside. Patient was stating that she had some abdominal pain and nausea that was primarily in the epigastric region ongoing since after breakfast around 9 or 10 AM this morning. Patient states she had oatmeal. Patient states she does not normally eat oatmeal. Patient denies any trauma. Patient does take aspirin and Plavix given her history of CABG. Patient did take some Zofran with only mild relief. She is not taking anything else for pain. Patient did have mild epigastric left upper quadrant tenderness and states that her bladder was full. She's had some mild burning urination. Patient did have blood work, UA, supportive care, and CT abdomen pelvis completed. Patient's urinalysis was negative. Patient had an unchanged EKG without ischemic changes and a negative troponin less likely atypical chest pain even given her prior history of CABG. Patient's discomfort nausea improved symptomatically treatment. Patient's lab work was fairly unremarkable. Patient did have CT the abdomen pelvis completed the did show very mild colitis without inflammatory stranding. Patient w/ mild LA @ 2.2 but given IVF and tolerated PO. Patient w/o pain out of proportion on exam, no h/o of a fib, less likely mesenteric ischemia especially in light of symptoms x 12 hrs and no elevation in WBC. Given the patient's lack of other infectious symptoms and a normal white count decision was made to continue supportive care and not treat with any antibiotics at this time. Patient has had regular bowel movements, most recently yesterday, and denies any blood in the stool. Patient was able tolerate by mouth. Patient was given strict follow-up, discharge, and return precautions. Patient agreed with plan of care and patient was safely discharged home. Medication Reconcilliation Current Medication List: was personally reviewed by me Blood Pressure Screening Patient's blood pressure: Elevated blood pressure Blood pressure disposition: Referred to PCP Impression Primary Impression: Abdominal pain Additional Impression: Nausea Scribe Attestation The scribe's documentation has been prepared under my direction and personally reviewed by me in its entirety. I confirm that the note above accurately reflects all work, treatment, procedures, and medical decision making performed by me. Departure Information Dispostion Home / Self-Care Referrals Reginaldo Ramirez D.O. (PCP) Forms HOME CARE DOCUMENTATION FORM, IMPORTANT VISIT INFORMATION Patient Instructions My Juliann Mireles [facility], Nausea Vomit Control Additional Instructions Please return to the emergency department if you have worsening or recurrent symptoms not amenable to at-home treatment. Please call for a follow-up appointment with her primary care physician. Please take your medications as prescribed. If you have other concerns and/or complaints please feel free to also call your primary care physician's office or return the ED for further evaluation, management, and treatment. You were found to have an elevated blood pressure today (>120 sytolic or >90 diastolic). Per medicare guidelines, you need to follow up with this blood pressure screening with your Primary Care Physician (PCP). For a new PCP call [phone]. Try tylenol for pain 650 mg every 6 hrs. You may try flaquita tiffanie and your zofran for any nausea. You have been examined and treated today on an emergency basis only. This is not a substitute for, or an effort to provide, complete comprehensive medical care. It is impossible to recognize and treat all injuries or illnesses in a single emergency department visit. It is therefore important that you follow up closely with [facility]. Call as soon as possible for an appointment. Thank you for your time and consideration. I look forward to speaking with you again soon. Please don't hesitate to call us if you have any questions. Problem Qualifiers Primary Impression: Abdominal pain Abdominal location: epigastric Qualified Codes: R10.13 - Epigastric pain
--- NOTE | 2017-04-14 20:13 | DIAGNOSTIC IMAGING REPORT ---
CHEST ONE VIEW PORTABLE HISTORY: 61 years-old Female epigastric pain acute epigastric abdominal pain. COMPARISON: Chest radiograph 02/02/2017 TECHNIQUE: Portable upright AP view of the chest FINDINGS: Cardiac silhouette is upper limits of normal. Prior median sternotomy. Left pectoral pacer/AICD is noted with leads intact. There is atherosclerosis of the aorta. No pneumothorax, pleural effusion or focal airspace consolidation. Advanced osteoarthritis involves the right shoulder. Bones are grossly intact. IMPRESSION: No acute cardiopulmonary process. The above report was generated using voice recognition software. It may contain grammatical, syntax or spelling errors. Electronically signed by: George Childers M.D. 04/14/2017 8:12 PM Dictated Date/Time: 04/14/2017 8:10 PM
[2017-04-14 20:37] LABS: BASO % 0.2 %; BASO ABS # 0.02 K/uL (0-0.2); COMPLETE YES; HEMATOCRIT 37.8 % (37-47); IG% 0.3 %; LYMPH % 26.8 %; MEAN CELL VOLUME 85.7 fL (80-100); MEAN CORPUSCULAR HEMOGLOBIN 28.3 pg (25-34); MEAN CORPUSCULAR HGB CONC 33.1 g/dl (32-36); MEAN PLATELET VOLUME 10.3 fL (7.4-10.4); MONO % 2.7 %; PLATELET COUNT 218 K/uL (130-400); RED BLOOD COUNT 4.41 M/uL (4.2-5.4); WHITE BLOOD COUNT 9.71 K/uL (4.8-10.8)
[2017-04-14 20:44] LABS: ISTAT HEMOGLOBIN 13.3 g/dl (12.0-16.0); ISTAT IONIZED CALCIUM 1.22 mmol/l (1.12-1.32)
[2017-04-14 20:48] LABS: PARTIAL THROMBOPLASTIN RATIO 0.9; PROTHROMBIN TIME (PATIENT) 10.7 SECONDS (9.0-12.0)
[2017-04-14 20:52] LABS: ALT/SGPT 18 U/L (12-78); BLOOD UREA NITROGEN 20 mg/dl (7-18); BUN/CREATININE RATIO 16.3 (10-20); CALCIUM 10.1 mg/dl (8.5-10.1); CARBON DIOXIDE 28 mmol/L (21-32); CHLORIDE 101 mmol/L (98-107); GLUCOSE 169 mg/dl (70-99); POTASSIUM 4.8 mmol/L (3.5-5.1); SODIUM 138 mmol/L (136-145)
[2017-04-14 20:57] LABS: ALKALINE PHOSPHATASE 70 U/L (45-117); AST/SGOT 17 U/L (15-37)
[2017-04-14] MEDS ORDERED: OPTIRAY 320 IV PRN (21:15)
--- NOTE | 2017-04-14 21:51 | DIAGNOSTIC IMAGING REPORT ---
ABD/PELVIS IV CONTRAST ONLY HISTORY: 61 years-old Female ab pain, epigastric, LUQ acute generalized abdominal pain. Initial exam. COMPARISON: CT abdomen and pelvis 02/02/2017 TECHNIQUE: Multiple axial CT images of the abdomen and pelvis were obtained following the intravenous administration of 116 mL Optiray 320. A dose lowering technique was used consistent with the principals of MICHAEL. FINDINGS: Lung bases are generally clear. There is no pneumoperitoneum. Imaged inferior cardiac chambers are enlarged with pacer leads overlying the right atrium and right ventricle. Coronary arterial calcifications are also noted. Prior median sternotomy. Prior cholecystectomy. Mild prominence of the common bile duct is seen, 6.5 mm which measures in the upper limits of normal, likely secondary to postcholecystectomy state. The liver, spleen and right adrenal gland are unremarkable. There is moderate diffuse pancreatic atrophy. Hyperattenuating 2.7 x 2.5 cm left adrenal nodule appears unchanged in size from comparison dating back to 11/27/2016. Multiple bilateral nephrolithiasis redemonstrated with an 8 mm calculus noted involving the interpolar right kidney. No ureteral calculi or hydronephrosis identified. Urinary bladder is unremarkable. Prior hysterectomy. Moderate mixed plaquing of the abdominal aorta. No bulky retroperitoneal adenopathy. Scattered nonenlarged paratracheal lymph nodes are nonspecific and likely reactive, unchanged. Small sliding-type hiatal hernia. Mild wall thickening of the pylorus/antrum likely secondary to partial distention. No bowel obstruction. There is mild wall thickening with partial distention noted involving the colon at the rectosigmoid junction without significant surrounding inflammatory stranding. The appendix is not seen. No secondary signs of acute appendicitis. Soft tissues are unremarkable. IMPRESSION: 1. Mild wall thickening of the colon at the descending sigmoid junction without significant inflammatory stranding may be secondary to partial distention or mild colitis. 2. Unchanged indeterminate left adrenal nodule, stable in size dating back to 11/27/2016. 3. Prior cholecystectomy and hysterectomy. The above report was generated using voice recognition software. It may contain grammatical, syntax or spelling errors. Electronically signed by: George Childers M.D. 04/14/2017 9:50 PM Dictated Date/Time: 04/14/2017 9:39 PM
[2017-04-14 23:10] VITALS: BP 152/72; PULSE 78; O2SAT 96
== END 2017-04-14 23:10 | disposition home or self-care (01) ==
LOC: EDBD 19:14 → C.EDA 19:15
DX: R10.13 Epigastric pain (principal); R11.0 Nausea; N17.9 Acute kidney failure, unspecified; J45.909 Unspecified asthma, uncomplicated; N18.3 Chronic kidney disease, stage 3 (moderate); I25.10 Atherosclerotic heart disease of native coronary artery without angina pectoris; F32.9 Major depressive disorder, single episode, unspecified; E11.9 Type 2 diabetes mellitus without complications; K21.9 Gastro-esophageal reflux disease without esophagitis; I10 Essential (primary) hypertension; E66.9 Obesity, unspecified; G47.33 Obstructive sleep apnea (adult) (pediatric); M19.90 Unspecified osteoarthritis, unspecified site; E78.00 Pure hypercholesterolemia, unspecified; I49.01 Ventricular fibrillation; Z83.3 Family history of diabetes mellitus; Z82.49 Family history of ischemic heart disease and other diseases of the circulatory system; Z79.82 Long term (current) use of aspirin; Z79.4 Long term (current) use of insulin

== ENCOUNTER 2017-05-21 11:25 | Inpatient (IN) | payer OTHER ==
[~2017-05-21] VITALS: Ht 157.5 cm; Wt 85.7 kg
[~2017-05-21 11:25] MED LIST changes: +ONDA4TAB46 PO
[2017-05-21 12:36] LABS: BASO % 0.1 %; BASO ABS # 0.02 K/uL (0-0.2); COMPLETE YES; HEMATOCRIT 42.1 % (37-47); IG% 0.4 %; LYMPH % 17.9 %; LYMPH ABS # 2.71 K/uL (1.2-3.4); MEAN CELL VOLUME 85.6 fL (80-100); MEAN CORPUSCULAR HEMOGLOBIN 29.5 pg (25-34); MEAN CORPUSCULAR HGB CONC 34.4 g/dl (32-36); MEAN PLATELET VOLUME 10.5 fL (7.4-10.4); MONO % 4.6 %; PLATELET COUNT 228 K/uL (130-400); RED BLOOD COUNT 4.92 M/uL (4.2-5.4); WHITE BLOOD COUNT 15.11 K/uL (4.8-10.8)
[2017-05-21 12:47] LABS: VEN BLOOD GAS BASE EXCESS 5.9 mEq/L; VENOUS BLOOD GAS PCO2 54 mmHg (38.0-50.0); VENOUS BLOOD GAS PO2 29 mmHg
[2017-05-21 12:49] LABS: VEN BLD GAS O2 SATURATION < 60.0 %
--- NOTE | 2017-05-21 12:55 | DIAGNOSTIC IMAGING REPORT ---
HEAD WITHOUT CONTRAST (CT) CLINICAL HISTORY: 61 years-old Female presenting with vomiting, dizziness. TECHNIQUE: Multidetector CT imaging of the head was performed without the use of intravenous contrast. IV contrast: None. A dose lowering technique was used consistent with the principles of ALARA (as low as reasonably achievable). COMPARISON: 12/19/2016. CT DOSE (mGy.cm): The estimated cumulative dose is 776.86 mGycm. FINDINGS: Senior Science Consultant topogram: Unremarkable. Ventricular dilatation with sulcal prominence with the exception of the sulci at the vertex, which demonstrate relative effacement and gyral crowding. The callosal angle measures less than 80 degrees, which is lower than normal. Periventricular and subcortical white matter hypoattenuation, nonspecific but likely indicative of chronic small vessel ischemic change. No mass effect or midline shift. No hemorrhage or acute territorial infarct. No extra-axial fluid collection. Paranasal sinuses and mastoid air cells clear. Calvarium intact. IMPRESSION: 1. No acute intracranial pathology. 2. Gyral crowding and relative sulcal effacement at the vertex combined with a slightly low callosal angle raises suspicion for normal pressure hydrocephalus. Correlate clinically. Electronically signed by: Robert Cesar M.D. 05/21/2017 12:54 PM Dictated Date/Time: 05/21/2017 12:48 PM
[2017-05-21 13:12] LABS: ALB/GLOB RATIO 0.7 (0.9-2); ALKALINE PHOSPHATASE 69 U/L (45-117); ALT/SGPT 20 U/L (12-78); BLOOD UREA NITROGEN 18 mg/dl (7-18); BUN/CREATININE RATIO 15.1 (10-20); CALCIUM 10.5 mg/dl (8.5-10.1); CARBON DIOXIDE 29 mmol/L (21-32); CHLORIDE 98 mmol/L (98-107); CREATININE 1.19 mg/dl (0.60-1.20); GLUCOSE 204 mg/dl (70-99); SODIUM 135 mmol/L (136-145)
[2017-05-21] MEDS ORDERED: SODIUM CHLORIDE 0.9% 1000ML 1,000 ML IV STA ×2 (13:45→15:37)
[2017-05-21] MEDS ORDERED: CEFEPIME IV 2,000 MG in DEXTROSE 5% 100ML 100 ML IV STA (13:56)
[2017-05-21] MEDS ORDERED: METOPROLOL TARTRATE 1 MG/ML VIAL IV STA (13:58)
--- NOTE | 2017-05-21 13:59 | EMERGENCY ROOM VISIT NOTE ---
ED Visit Note First contact with patient: 11:44 Patient was seen by our PA/CASING FINISHER AND STUFFER. I was involved in the patient's care and did evaluate the patient myself. I was involved in the care throughout the ER stay. The patient presents with abdominal pain and nausea. She does have a leukocytosis and an elevated lactic acid. Blood pressure is high but she has not taken her blood pressure medication today. The blood pressure will be controlled with IV medication. Imaging of the abdomen and pelvis is pending to try to help explain her pain. Brain CT shows some potential hydrocephalus which is a new finding. IV antibiotics have been ordered, medications for her symptoms have been ordered. Admission/observation will be required.
--- NOTE | 2017-05-21 14:06 | EMERGENCY ROOM VISIT NOTE ---
History First contact with patient: 11:44 Chief Complaint: NAUSEA Stated Complaint: DIZZY/NAUSEA Nursing Triage Summary: Nausea, vomiting and dizziness. Patient is a diabetic. History of Present Illness The patient is a 61 year old female who presents to the Emergency Room via ambulance with complaints of "nausea, vomiting, and dizziness". The patient states she is a type II diabetic. The patient states for the past few days she began with dizziness followed by vomiting and hiccups. She states there is minimal abdominal pain but it is present. She states she tried insulin today but did not tolerate it well. She states that she feels weak throughout her whole body. She denies any chest pain or shortness of breath. She believes there may be a small amount of blood in her vomit today. Review of Systems A complete 10-point Review of Systems was discussed with the patient, with pertinent positives and negatives listed in the History of Present Illness. All remaining Review of Systems questions can be considered negative unless otherwise specified. Past Medical/Surgical History Medical Problems: (1) Abdominal pain (2) SABRINA (acute kidney injury) (3) Ambulatory dysfunction (4) Aortocoronary Bypass (5) Asthma, Unspecified (6) CKD (chronic kidney disease), stage III (7) Coronary atherosclerosis of eagle coronary vessel (8) Depression (9) Diab Nany Wo Compl, Type Ii Or Unspec Type, Not Uncntrld (10) Diabetic nephropathy (11) Diabetic retinopathy (12) Dizziness (13) GERD (gastroesophageal reflux disease) (14) Hypertension Nos (15) Neuropathy in diabetes (16) Obesity, Class II, BMI 35-39.9, with comorbidity (17) Obstructive Sleep Apnea (Adult) (Pediatric) (18) Osteoarthritis (19) Pacemaker (20) Polymyalgia rheumatica (21) Presence of combination internal cardiac defibrillator (ICD) and pacemaker (22) Pure Hypercholesterolem (23) Ventricular fibrillation Surgical Problems: (1) H/O eye surgery (2) History of appendectomy (3) History of cholecystectomy (4) History of hysterectomy (5) History of hysterectomy (6) S/P triple vessel bypass Social History Problems: (1) Diabetes mellitus Family History Diabetes mellitus FATHER BROTHER FH: cancer FH: lung disease FHx: heart disease MOTHER Hypertension MOTHER Kidney disease Kidney stones Social History Smoking Status: Former Smoker Alcohol Use: occasionally Drug Use: none Marital Status: Housing Status: lives alone Occupation Status: disabled Current/Historical Medications Scheduled Aspirin (Aspirin Ec), 81 MG PO QAM Atorvastatin (Atorvastatin Calcium), 40 MG PO DAILY Clopidogrel Bisulfate (Plavix), 75 MG PO HS Cyclosporine (Ophth) (Restasis), 1 DROP OP BID Docusate Sodium (Docusate Sodium), 100 MG PO BID Escitalopram Oxalate (Lexapro), 15 MG PO QAM Insulin Aspart (Novolog Flexpen), 33 UNITS SC AC Isosorbide Mononitrate Ext Rel (Imdur Ext Rel), 90 MG PO DAILY Ketoconazole (Topical) (Ketoconazole), 1 APPLN TOP DAILY Lisinopril (Lisinopril), 10 MG PO QAM Lisinopril (Prinivil), 5 MG PO QPM Metoprolol Succinate (Metoprolol Succinate ER), 50 MG PO BID Pantoprazole (Protonix), 40 MG PO BID Polyethylene Glycol 3350 (Miralax), 17 GM PO DAILY Sennosides-Docusate Sodium (Senna Plus), 1 TAB PO HS Scheduled PRN Albuterol Hfa (Ventolin Hfa), 2 PUFFS INH Q4 PRN for Wheezing Nitroglycerin (Nitrostat), 0.4 MG UT UD PRN for Chest Pain Prochlorperazine Maleate (Prochlorperazine Maleate), 5 MG PO Q6 PRN for Nausea Physical Exam Vital Signs Date Time Temp Pulse Resp B/P (MAP) Pulse Ox O2 Delivery O2 Flow Rate FiO2 05/21/17 16:02 85 17 190/145 97 Room Air 05/21/17 15:39 84 19 186/99 97 Room Air 05/21/17 15:33 83 05/21/17 14:49 88 15 178/116 94 Room Air 05/21/17 14:23 103 193/91 05/21/17 14:21 105 16 193/91 98 Room Air 05/21/17 13:57 102 22 167/92 97 Room Air 05/21/17 13:10 107 18 177/114 99 Room Air 05/21/17 12:31 98 Room Air 05/21/17 11:35 36.6 107 23 209/91 99 Room Air 05/21/17 11:34 106 Physical Exam VITAL SIGNS - Vital signs and nursing notes were reviewed. Hypertensive, afebrile, tachycardic at 10 6 bpm, and is saturating well on room air at 99%. GENERAL -61-year-old female appearing her stated age who is in no acute distress. Communicates well with provider and answers questions appropriately however does respond slowly. SKIN - Without rashes. No petechial rashes. HEAD - NC/AT. EYES - PERRL with EOMI bilaterally. Sclera anicteric. Palpebral conjunctiva pink and moist with no injection noted. EARS - No deformities of external structures noted on gross examination bilaterally. NOSE - Midline and without cyanosis. No epistaxis or purulent drainage noted. MOUTH/OROPHARYNX - Without perioral cyanosis. NECK - Neck with FROM. Supple to palpation. No nuchal rigidity. No meningismus. LUNGS - Chest wall symmetric without accessory muscle use, intercostals retractions, or central cyanosis. Normal vesicular breath sounds CTA B/L. No wheezes, rales, or rhonchi appreciated. CARDIAC - RRR with S1/S2. No murmur, rubs, or gallops appreciated. ABDOMEN - Abdominal contour normal without pulsations or visible masses. BS normoactive all four quadrants. There is some generalized tenderness. No palpable masses, hepatosplenomegaly, or ascites noted. EXTREMITIES - No clubbing or peripheral cyanosis. No pretibial edema present. + 5/5 strength noted in UE/LE bilaterally. NEUROLOGIC - Cranial nerves II through XII grossly intact. Sensory intact to light touch throughout. PSYCH - A&O, and cooperates fully with examiner. Pt is very pleasant and interacts well with examiner. Medical Decision & Procedures ER Provider Diagnostic Interpretation: HEAD WITHOUT CONTRAST (CT) CLINICAL HISTORY: 61 years-old Female presenting with vomiting, dizziness. TECHNIQUE: Multidetector CT imaging of the head was performed without the use of intravenous contrast. IV contrast: None. A dose lowering technique was used consistent with the principles of ALARA (as low as reasonably achievable). COMPARISON: 12/19/2016. CT DOSE (mGy.cm): The estimated cumulative dose is 776.86 mGycm. FINDINGS: Airway Controller topogram: Unremarkable. Ventricular dilatation with sulcal prominence with the exception of the sulci at the vertex, which demonstrate relative effacement and gyral crowding. The callosal angle measures less than 80 degrees, which is lower than normal. Periventricular and subcortical white matter hypoattenuation, nonspecific but likely indicative of chronic small vessel ischemic change. No mass effect or midline shift. No hemorrhage or acute territorial infarct. No extra-axial fluid collection. Paranasal sinuses and mastoid air cells clear. Calvarium intact. IMPRESSION: 1. No acute intracranial pathology. 2. Gyral crowding and relative sulcal effacement at the vertex combined with a slightly low callosal angle raises suspicion for normal pressure hydrocephalus. Correlate clinically. Electronically signed by: Robert Cesar M.D. 05/21/2017 12:54 PM Dictated Date/Time: 05/21/2017 12:48 PM ABD/PELVIS IV CONTRAST ONLY CLINICAL HISTORY: 61 years-old Female presenting with Abdominal pain, nausea, vomiting. TECHNIQUE: Multidetector CT of the abdomen and pelvis was performed after the administration of intravenous contrast. IV contrast: 93 mL of Optiray 320. A dose lowering technique was used consistent with the principles of ALARA (as low as reasonably achievable). COMPARISON: 04/14/2017. CT DOSE (mGy.cm): The estimated cumulative dose is 517.86 mGy.cm. FINDINGS: Airway Controller topogram: Cholecystectomy clips noted. Lung bases: Lung bases clear. Cardiac leads partially visualized. Normal heart size. No pericardial or pleural effusion. 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 No focal liver lesion. Patent hepatic vasculature. Biliary: Mild prominence of intrahepatic bile ducts likely due to a reservoir effect in the post cholecystectomy state. Gallbladder surgically absent. Pancreas: Normal. Spleen: Normal. Adrenal glands: 2.7 cm left adrenal nodule minimally increased in size since 2014 and indeterminate. Right adrenal gland normal. Kidneys and ureters: Focal defect along the posterior aspect of the interpolar region of the right kidney could suggest reflux nephropathy. Few punctate renal calculi noted bilaterally. Few subtle cysts in the right kidney. No hydronephrosis. Ureters normal. Bladder: Normal. Pelvic organs: Uterus surgically absent. No adnexal masses. Bowel: Large stool burden in the rectum. No significant perirectal inflammatory change to suggest stercoral colitis. Previous seen noted wall thickening at the junction of the descending and sigmoid colon likely secondary to underdistention. No pericolonic inflammatory change. No bowel obstruction. No significant bowel wall thickening is apparent. Peritoneal cavity: No free fluid or intraperitoneal gas. Lymph nodes: Few subcentimeter benign-appearing lymph nodes in the retroperitoneum and external iliac regions, possibly reactive. No pathologically enlarged lymph nodes in abdomen or pelvis. Vasculature: Atherosclerosis of the normal caliber abdominal aorta. IVC patent. Abdominal wall: Mild anasarca suggested. More focal nodular infiltration in the ventral abdominal wall could suggest medication menstruation. Infraumbilical midline surgical incision site without associated inflammatory change or fluid collection. Musculoskeletal: Degenerative changes of the spine. IMPRESSION: 1. No acute intra-abdominal pathology. 2. 2.7 cm left adrenal nodule, indeterminate and slowly increasing in size since 2013. This was indeterminate on prior dedicated adrenal MR from 2011, when this lesion measured 1.3 cm. 3. Bilateral nephrolithiasis. Electronically signed by: Robert Cesar M.D. 05/21/2017 2:34 PM Dictated Date/Time: 05/21/2017 2:24 PM Laboratory Results 05/21/17 12:24 Red Blood Count 4.92, Mean Corpuscular Volume 85.6, Mean Corpuscular Hemoglobin 29.5, Mean Corpuscular Hemoglobin Concent 34.4, Mean Platelet Volume 10.5, Neutrophils (%) (Auto) 77.0, Lymphocytes (%) (Auto) 17.9, Monocytes (%) (Auto) 4.6, Eosinophils (%) (Auto) 0.0, Basophils (%) (Auto) 0.1, Neutrophils # (Auto) 11.62, Lymphocytes # (Auto) 2.71, Monocytes # (Auto) 0.70, Eosinophils # (Auto) 0.00, Basophils # (Auto) 0.02 05/21/17 12:24 05/21/17 15:29 Test 05/21/17 12:24 05/21/17 15:29 05/21/17 16:08 White Blood Count 15.11 K/uL (4.8-10.8) Red Blood Count 4.92 M/uL (4.2-5.4) Hemoglobin 14.5 g/dL (12.0-16.0) Hematocrit 42.1 % (37-47) Mean Corpuscular Volume 85.6 fL (80-100) Mean Corpuscular Hemoglobin 29.5 pg (25-34) Mean Corpuscular Hemoglobin Concent 34.4 g/dl (32-36) Platelet Count 228 K/uL (130-400) Mean Platelet Volume 10.5 fL (7.4-10.4) Neutrophils (%) (Auto) 77.0 % Lymphocytes (%) (Auto) 17.9 % Monocytes (%) (Auto) 4.6 % Eosinophils (%) (Auto) 0.0 % Basophils (%) (Auto) 0.1 % Neutrophils # (Auto) 11.62 K/uL (1.4-6.5) Lymphocytes # (Auto) 2.71 K/uL (1.2-3.4) Monocytes # (Auto) 0.70 K/uL (0.11-0.59) Eosinophils # (Auto) 0.00 K/uL (0-0.5) Basophils # (Auto) 0.02 K/uL (0-0.2) RDW Standard Deviation 40.4 fL (36.4-46.3) RDW Coefficient of Variation 12.9 % (11.5-14.5) Immature Granulocyte % (Auto) 0.4 % Immature Granulocyte # (Auto) 0.06 K/uL (0.00-0.02) Venous Blood pH 7.40 (7.36-7.41) Venous Blood Partial Pressure CO2 54 mmHg (38.0-50.0) Venous Blood Partial Pressure O2 29 mmHg Venous Blood HCO3 32 mmol/L Venous Blood Oxygen Saturation < 60.0 % Venous Blood Base Excess 5.9 mEq/L Anion Gap 8.0 mmol/L (3-11) Est Creatinine Clear Calc Drug Dose 49.3 ml/min Estimated GFR () 56.3 Estimated GFR (Non- 48.5 BUN/Creatinine Ratio 15.1 (10-20) Calcium Level 10.5 mg/dl (8.5-10.1) Total Bilirubin 0.6 mg/dl (0.2-1) Alanine Aminotransferase (ALT/SGPT) 20 U/L (12-78) Alkaline Phosphatase 69 U/L (45-117) Troponin I < 0.015 ng/ml (0-0.045) Total Protein 10.3 gm/dl (6.4-8.2) Albumin 4.2 gm/dl (3.4-5.0) Globulin 6.1 gm/dl (2.5-4.0) Albumin/Globulin Ratio 0.7 (0.9-2) Lipase 59 U/L (73-393) Magnesium Level mg/dl (1.8-2.4) Aspartate Amino Transf (AST/SGOT) U/L (15-37) Beta-Hydroxybutyric Acid 1.37 mg/dL (0.2-2.81) Urine Color YELLOW Urine Appearance CLOUDY (CLEAR) Urine pH 5.5 (4.5-7.5) Urine Specific [place] > 1.045 (1.000-1.030) Urine Protein 2+ (NEG) Urine Glucose (UA) 2+ (NEG) Urine Ketones TRACE (NEG) Urine Occult Blood NEG (NEG) Urine Nitrite NEG (NEG) Urine Bilirubin NEG (NEG) Urine Urobilinogen NEG (NEG) Urine Leukocyte Esterase TRACE (NEG) Urine WBC (Auto) 5-10 /hpf (0-5) Urine RBC (Auto) 0-4 /hpf (0-4) Urine Hyaline Casts (Auto) 1-5 /lpf (0-5) Urine Epithelial Cells (Auto) >30 /lpf (0-5) Urine Bacteria (Auto) 1+ (NEG) Urine Crystals CALCIUM OXALATE (NONE Medications Administered Medications (Trade) Dose Ordered Sig/Tera Route Start Time Stop Time Status Last Admin Dose Admin Sodium Chloride 1,000 ml @ 999 mls/hr Q1H1M STAT IV 05/21/17 13:45 05/21/17 14:45 DC 05/21/17 13:45 999 MLS/HR Cefepime HCl 2000 mg/Dextrose 112.5 ml @ 200 mls/hr ONE STAT IV 05/21/17 13:56 05/21/17 14:29 DC 05/21/17 15:31 200 MLS/HR Metoprolol Tartrate (Lopressor Iv) 5 mg NOW STAT IV 05/21/17 13:58 05/21/17 14:00 DC 05/21/17 14:23 5 MG Sodium Chloride 1,000 ml @ 999 mls/hr Q1H1M STAT IV 05/21/17 15:37 05/21/17 16:37 DC 05/21/17 15:37 999 MLS/HR Medical Decision Patient was seen and evaluated as above. She presents to us today with nausea, dizziness as well as vomiting. She is a type II diabetic. She examines well, but is soft in her speaking. She denies any chest pain or shortness of breath. CT scan was obtained because of the new onset dizziness and found a questionable normal pressure hydrocephalus. I discussed this with the attending physician and subsequently the [facility] neurologist, Dr. Deal, at 3:09 PM. She recommended MRI attention the internal auditory canals if vertigo , or MRA head and neck. The MRI was ordered. Chest x-ray negative for acute process. CT scan was had of the abdomen secondary to the patient's abdominal pain, and this reveals the adrenal mass, which the patient was aware of and was actually to have surgery on today. She states the surgery was to be done here. She was found hypertensive, but did not take her medicine today. She was given 5 mg of Lopressor IV. She responded well but continues to be hypertensive. CBC reveals leukocytosis of 15.11. No anemia. Normal pH. CO2 high at 54. Patient's metabolic panel reveals lactic acidosis at 3.9. Sodium is low at 135. Glucose at 234. Total protein high at 10.3. Urine reveals high specific gravity, trace ketones, and what appears to be contaminated sample as her greater than 30 epithelial cells. I suspect contaminant sample and do not suspect urosepsis. CT, of the head and abdomen as well as chest x- ray reveal essentially emergently only the questionable hydrocephalus. 2 g of cefepime ordered by the attending physician for concern over sepsis with the elevated leukocytosis, lactic acidosis, as well as her tachycardia. At this time I believe that further evaluation the inpatient setting is warranted. Case was discussed with the attending physician, and subsequently the hospitalist. Please refer to further evaluation and management during her stay. EKG does reveal sinus rhythm, prolonged QT which appears to have length and compared to EKG of April 14. In evaluation treatment this patient following differential diagnoses were obtained: LA, PE, infarct of the brain, hydrocephalus, electrolyte abnormality, renal failure, sepsis, among others. I was called by MRI and was informed that the patient is unsure which type of pacemaker/defibrillator she has and does not have her device card as it is in her purse/bag at home. I informed the [facility] hospitalist team of this. Impression Primary Impression: SIRS (systemic inflammatory response syndrome) Additional Impressions: Vomiting Dizziness Prolonged QT interval Abdominal pain, generalized Departure Information Dispostion Admitted as an inpatient Condition FAIR Referrals Reginaldo Ramirez D.OJack (PCP) Patient Instructions My [facility] Problem Qualifiers Additional Impressions:
[2017-05-21] MEDS ORDERED: CMP5 PO (14:08)
[2017-05-21] MEDS ORDERED: KETO2SHA TOP (14:08)
[2017-05-21] MEDS ORDERED: CYCL0.052 OP (14:08)
[2017-05-21] MEDS ORDERED: VNTHFA/IN INH (14:08)
[2017-05-21] MEDS ORDERED: POLY335019 PO (14:08)
[2017-05-21] MEDS ORDERED: LISI-729 PO (14:08)
[2017-05-21] MEDS ORDERED: OPTIRAY 320 IV PRN (14:30)
--- NOTE | 2017-05-21 14:36 | DIAGNOSTIC IMAGING REPORT ---
ABD/PELVIS IV CONTRAST ONLY CLINICAL HISTORY: 61 years-old Female presenting with Abdominal pain, nausea, vomiting. TECHNIQUE: Multidetector CT of the abdomen and pelvis was performed after the administration of intravenous contrast. IV contrast: 93 mL of Optiray 320. A dose lowering technique was used consistent with the principles of ALARA (as low as reasonably achievable). COMPARISON: 04/14/2017. CT DOSE (mGy.cm): The estimated cumulative dose is 517.86 mGy.cm. FINDINGS: Inspector Eyeglass Frames topogram: Cholecystectomy clips noted. Lung bases: Lung bases clear. Cardiac leads partially visualized. Normal heart size. No pericardial or pleural effusion. 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 No focal liver lesion. Patent hepatic vasculature. Biliary: Mild prominence of intrahepatic bile ducts likely due to a reservoir effect in the post cholecystectomy state. Gallbladder surgically absent. Pancreas: Normal. Spleen: Normal. Adrenal glands: 2.7 cm left adrenal nodule minimally increased in size since 2013 and indeterminate. Right adrenal gland normal. Kidneys and ureters: Focal defect along the posterior aspect of the interpolar region of the right kidney could suggest reflux nephropathy. Few punctate renal calculi noted bilaterally. Few subtle cysts in the right kidney. No hydronephrosis. Ureters normal. Bladder: Normal. Pelvic organs: Uterus surgically absent. No adnexal masses. Bowel: Large stool burden in the rectum. No significant perirectal inflammatory change to suggest stercoral colitis. Previous seen noted wall thickening at the junction of the descending and sigmoid colon likely secondary to underdistention. No pericolonic inflammatory change. No bowel obstruction. No significant bowel wall thickening is apparent. Peritoneal cavity: No free fluid or intraperitoneal gas. Lymph nodes: Few subcentimeter benign-appearing lymph nodes in the retroperitoneum and external iliac regions, possibly reactive. No pathologically enlarged lymph nodes in abdomen or pelvis. Vasculature: Atherosclerosis of the normal caliber abdominal aorta. IVC patent. Abdominal wall: Mild anasarca suggested. More focal nodular infiltration in the ventral abdominal wall could suggest medication menstruation. Infraumbilical midline surgical incision site without associated inflammatory change or fluid collection. Musculoskeletal: Degenerative changes of the spine. IMPRESSION: 1. No acute intra-abdominal pathology. 2. 2.7 cm left adrenal nodule, indeterminate and slowly increasing in size since 2013. This was indeterminate on prior dedicated adrenal MR from 2011, when this lesion measured 1.3 cm. 3. Bilateral nephrolithiasis. Electronically signed by: Robert Cesar M.D. 05/21/2017 2:34 PM Dictated Date/Time: 05/21/2017 2:24 PM
--- NOTE | 2017-05-21 15:26 | DIAGNOSTIC IMAGING REPORT ---
CHEST ONE VIEW PORTABLE CLINICAL HISTORY: 61 years-old Female presenting with dizziness, vomiting. TECHNIQUE: Portable upright AP view of the chest was obtained. COMPARISON: 04/14/2017. FINDINGS: Left-sided implanted cardiac defibrillator with leads to the right atrium and right ventricular apex. Median sternotomy wires and mediastinal surgical clips unchanged. Atherosclerosis of aortic arch. Cardiac silhouette mildly enlarged, unchanged. Lungs and pleural spaces clear. Degenerative changes of the right glenohumeral joint. Upper abdomen normal. IMPRESSION: 1. No acute cardiopulmonary disease. Electronically signed by: Robert Cesar M.D. 05/21/2017 3:25 PM Dictated Date/Time: 05/21/2017 3:24 PM
[2017-05-21 16:19] LABS: URINE APPEARANCE CLOUDY (CLEAR); URINE BILIRUBIN NEG (NEG); URINE COLOR YELLOW; URINE EPITHELIAL CELL AUTO >30 /lpf (0-5); URINE NITRITE NEG (NEG); URINE PH 5.5 (4.5-7.5); URINE SPECIFIC GRAVITY > 1.045 (1.000-1.030); UROBILINOGEN NEG (NEG); ZZURINE CULT IF INDIC CATH YES
[2017-05-21 16:20] LABS: MANUAL MICROSCOPIC REQUIRED? NO; REVIEW REQ? YES
[2017-05-21] MEDS ORDERED: GLUCOSE 40% GEL 15 GM TUBE PO PRN (17:45)
[2017-05-21] MEDS ORDERED: GLUCAGON FOR INJ 1 MG VIAL SQ PRN (17:45)
[2017-05-21] MEDS ORDERED: GLUCOSE 10 TABS/TUBE PO PRN (17:45)
[2017-05-21] MEDS ORDERED: ALUMINUM/MAGNESIUM/SIMETH (MAALOX MAX) 30 ML UDC PO PRN (17:45)
[2017-05-21] MEDS ORDERED: ONDANSETRON INJ 2 MG/ML 2 ML VIAL IV PRN (17:45)
[2017-05-21] MEDS ORDERED: DEXTROSE 50% 50 ML SYR IV PRN (17:45)
--- NOTE | 2017-05-21 17:56 | History and Physical ---
History & Physical Date & Time of Service: May 21, 2017 at 17:56 Chief Complaint: Dizzy/Nausea Primary Care Physician: Reginaldo Ramirez D.O. History of Present Illness Source: patient Patient is a 61 yr female with PMH of chronic diastolic heart failure, CAD S/P CABG, HTN, HLP, asthma, past tobacco abuse, mood disorder, DM II, H/O VT/VF S/P ICD, CKD III, GERD, Chronic constipation, DDD, multiple admission with GI symptoms which is presumed to be diabetic gastroparesis and other problems presents with history of nausea, vomiting, dizziness, generalized weakness, abdominal pain and loose BMs. Patient states she started had multiple episodes of nausea, vomiting since yesterday and denies any blood in vomitus. Reports chronic epigastric abdominal pain since many months. Reports abdominal pain is intermittent, sharp, non radiating, sharp, increases with eating, associated with poor appetite and denies any blood in stools.Reports having loose BMs and fever, chills since today. Also reports having dizziness since 2 days which she describes as room spinning which worsens with head movement and decreases with sitting. Denies headache, change in vision, head trauma, hearing loss, fall. Presented with uncontrolled Hypertension and admits that she missed her medications today. Uses walker/wheelchair at baseline. Denies any history of chest pain, SOB, palpitations, cough, wheezing, slurred speech, facial deformity , dysuria. Past Medical/Surgical History Medical Problems: (1) Aortocoronary Bypass Status: Resolved (2) Asthma, Unspecified Status: Chronic (3) CKD (chronic kidney disease), stage III Status: Chronic (4) Coronary atherosclerosis of [place] coronary vessel Permanent Comment: s/p CABG (SVG to OM, SVT to OM2, MEHTA to LAD) on 04/05/1998 s/p HEIDY x2 (LM and LAD) in 06/2012 Status: Chronic (5) Depression Status: Chronic (6) Diab Nany Wo Compl, Type Ii Or Unspec Type, Not Uncntrld Status: Chronic (7) Diabetic nephropathy Status: Chronic (8) Diabetic retinopathy Status: Chronic (9) GERD (gastroesophageal reflux disease) Status: Chronic (10) Hypertension Nos Status: Chronic (11) Neuropathy in diabetes Status: Chronic (12) Obesity, Class II, BMI 35-39.9, with comorbidity Status: Chronic (13) Obstructive Sleep Apnea (Adult) (Pediatric) Status: Chronic (14) Pacemaker Status: Resolved (15) Polymyalgia rheumatica Status: Chronic (16) Presence of combination internal cardiac defibrillator (ICD) and pacemaker Status: Chronic (17) Pure Hypercholesterolem Status: Chronic (18) Ventricular fibrillation Permanent Comment: VF arrest x2 s/p ICD placement Status: Chronic Surgical Problems: (1) H/O eye surgery Status: Chronic (2) History of appendectomy Status: Resolved (3) History of cholecystectomy Status: Resolved (4) History of hysterectomy Status: Resolved (5) History of hysterectomy Status: Chronic (6) S/P triple vessel bypass Status: Resolved Social History Problems: (1) Diabetes mellitus Status: Chronic Family History Diabetes mellitus FATHER BROTHER FH: cancer FH: lung disease FHx: heart disease MOTHER Hypertension MOTHER Kidney disease Kidney stones Reviewed as above Social History Smoking Status: Former Smoker Alcohol Use: none Drug Use: none Marital Status: Housing status: lives with family Occupational Status: disabled Immunizations History of Influenza Vaccine: N/A History of Tetanus Vaccine?: No History of Pneumococcal: No History of Hepatitis B Vaccine: No Allergies Coded Allergies: BEE STING (Verified Allergy, Severe, SWELLING, 05/21/17) Lidocaine (Verified Allergy, Severe, ANAPHYLAXIS, 05/21/17) Morphine (Verified Allergy, Mild, itching, 05/21/17) Tramadol (Verified Allergy, Mild, ITCHING, 05/21/17) Trazodone (Verified Allergy, Mild, ITCHING, 05/21/17) Home Medications Scheduled Aspirin (Aspirin Ec), 81 MG PO QAM Atorvastatin (Atorvastatin Calcium), 40 MG PO DAILY Clopidogrel Bisulfate (Plavix), 75 MG PO HS Cyclosporine (Ophth) (Restasis), 1 DROP OP BID Docusate Sodium (Docusate Sodium), 100 MG PO BID Escitalopram Oxalate (Lexapro), 15 MG PO QAM Insulin Aspart (Novolog Flexpen), 33 UNITS SC AC Isosorbide Mononitrate Ext Rel (Imdur Ext Rel), 90 MG PO DAILY Ketoconazole (Topical) (Ketoconazole), 1 APPLN TOP DAILY Lisinopril (Lisinopril), 10 MG PO QAM Lisinopril (Prinivil), 5 MG PO QPM Metoprolol Succinate (Metoprolol Succinate ER), 50 MG PO BID Pantoprazole (Protonix), 40 MG PO BID Polyethylene Glycol 3350 (Miralax), 17 GM PO DAILY Sennosides-Docusate Sodium (Senna Plus), 1 TAB PO HS Scheduled PRN Albuterol Hfa (Ventolin Hfa), 2 PUFFS INH Q4 PRN for Wheezing Nitroglycerin (Nitrostat), 0.4 MG UT UD PRN for Chest Pain Prochlorperazine Maleate (Prochlorperazine Maleate), 5 MG PO Q6 PRN for Nausea Review of Systems See HPI for pertinent positives & negatives. A total of 10 systems reviewed and were otherwise negative. Physical Exam Vital Signs Date Time Temp Pulse Resp B/P (MAP) Pulse Ox O2 Delivery O2 Flow Rate FiO2 05/21/17 16:02 85 17 190/145 97 Room Air 05/21/17 15:39 84 19 186/99 97 Room Air 05/21/17 15:33 83 05/21/17 14:49 88 15 178/116 94 Room Air 05/21/17 14:23 103 193/91 05/21/17 14:21 105 16 193/91 98 Room Air 05/21/17 13:57 102 22 167/92 97 Room Air 05/21/17 13:10 107 18 177/114 99 Room Air 05/21/17 12:31 98 Room Air 05/21/17 11:35 36.6 107 23 209/91 99 Room Air 05/21/17 11:34 106 General Appearance: WD/WN, no apparent distress Head: normocephalic, atraumatic Eyes: normal inspection, PERRL, EOMI, sclerae normal ENT: normal ENT inspection, hearing grossly normal Neck: supple, no JVD, trachea midline Respiratory/Chest: chest non-tender, lungs clear, normal breath sounds, no respiratory distress, no accessory muscle use Cardiovascular: regular rate, rhythm, no edema, no murmur Abdomen/GI: normal bowel sounds, soft, + pertinent finding (Generalized abd tender, No guarding, Obese) Back: normal inspection Extremities/Musculoskelatal: normal inspection, no pedal edema Neurologic/Psych: it infrastructure manager II-XII nml as tested, no motor/sensory deficits, alert, normal mood/affect, oriented x 3 Skin: normal color, warm/dry Diagnostics Laboratory Results Results Past 24 Hours Test 11/7/17 11:45 05/21/17 12:24 05/21/17 15:29 05/21/17 16:08 Range/Units Bedside Glucose 234 70-90 mg/dl White Blood Count 15.11 4.8-10.8 K/uL Red Blood Count 4.92 4.2-5.4 M/uL Hemoglobin 14.5 12.0-16.0 g/dL Hematocrit 42.1 37-47 % Mean Corpuscular Volume 85.6 80-100 fL Mean Corpuscular Hemoglobin 29.5 25-34 pg Mean Corpuscular Hemoglobin Concent 34.4 32-36 g/dl Platelet Count 228 130-400 K/uL Mean Platelet Volume 10.5 7.4-10.4 fL Neutrophils (%) (Auto) 77.0 % Lymphocytes (%) (Auto) 17.9 % Monocytes (%) (Auto) 4.6 % Eosinophils (%) (Auto) 0.0 % Basophils (%) (Auto) 0.1 % Neutrophils # (Auto) 11.62 1.4-6.5 K/uL Lymphocytes # (Auto) 2.71 1.2-3.4 K/uL Monocytes # (Auto) 0.70 0.11-0.59 K/uL Eosinophils # (Auto) 0.00 0-0.5 K/uL Basophils # (Auto) 0.02 0-0.2 K/uL RDW Standard Deviation 40.4 36.4-46.3 fL RDW Coefficient of Variation 12.9 11.5-14.5 % Immature Granulocyte % (Auto) 0.4 % Immature Granulocyte # (Auto) 0.06 0.00-0.02 K/uL Venous Blood pH 7.40 7.36-7.41 Venous Blood Partial Pressure CO2 54 38.0-50.0 mmHg Venous Blood Partial Pressure O2 29 mmHg Venous Blood HCO3 32 mmol/L Venous Blood Oxygen Saturation < 60.0 % Venous Blood Base Excess 5.9 mEq/L Sodium Level 135 136-145 mmol/L Potassium Level 3.5-5.1 mmol/L Chloride Level 98 98-107 mmol/L Carbon Dioxide Level 29 21-32 mmol/L Anion Gap 8.0 3-11 mmol/L Blood Urea Nitrogen 18 7-18 mg/dl Creatinine 1.19 0.60-1.20 mg/dl Est Creatinine Clear Calc Drug Dose 49.3 ml/min Estimated GFR () 56.3 Estimated GFR (Non- 48.5 BUN/Creatinine Ratio 15.1 10-20 Random Glucose 204 70-99 mg/dl Lactic Acid Level 3.9 0.4-2.0 mmol/L Calcium Level 10.5 8.5-10.1 mg/dl Magnesium Level 1.8-2.4 mg/dl Total Bilirubin 0.6 0.2-1 mg/dl Aspartate Amino Transf (AST/SGOT) 15-37 U/L Alanine Aminotransferase (ALT/SGPT) 20 12-78 U/L Alkaline Phosphatase 69 45-117 U/L Troponin I < 0.015 0-0.045 ng/ml Total Protein 10.3 6.4-8.2 gm/dl Albumin 4.2 3.4-5.0 gm/dl Globulin 6.1 2.5-4.0 gm/dl Albumin/Globulin Ratio 0.7 0.9-2 Lipase 59 73-393 U/L Beta-Hydroxybutyric Acid 0.2-2.81 mg/dL Urine Color YELLOW Urine Appearance CLOUDY CLEAR Urine pH 5.5 4.5-7.5 Urine Specific [place] > 1.045 1.000-1.030 Urine Protein 2+ NEG Urine Glucose (UA) 2+ NEG Urine Ketones TRACE NEG Urine Occult Blood NEG NEG Urine Nitrite NEG NEG Urine Bilirubin NEG NEG Urine Urobilinogen NEG NEG Urine Leukocyte Esterase TRACE NEG Urine WBC (Auto) 5-10 0-5 /hpf Urine RBC (Auto) 0-4 0-4 /hpf Urine Hyaline Casts (Auto) 1-5 0-5 /lpf Urine Epithelial Cells (Auto) >30 0-5 /lpf Urine Bacteria (Auto) 1+ NEG Urine Crystals CALCIUM OXALATE NONE PRSENT Test 05/21/17 17:52 Range/Units Microbiology Results 05/21/17 Blood Culture, Received Pending 05/21/17 Blood Culture, Received Pending 05/21/17 Urine Culture, Received Pending Diagnostic Radiology CT Head: 1. No acute intracranial pathology. 2. Gyral crowding and relative sulcal effacement at the vertex combined with a slightly low callosal angle raises suspicion for normal pressure hydrocephalus. Correlate clinically. CT ABD: 1. No acute intra-abdominal pathology. 2. 2.7 cm left adrenal nodule, indeterminate and slowly increasing in size since 2013. This was indeterminate on prior dedicated adrenal MR from 2011, when this lesion measured 1.3 cm. 3. Bilateral nephrolithiasis. CXR: No acute cardiopulmonary disease. EKG EKG: NSR, Prolonged QTC Impression Assessment and Plan Nausea, Vomiting, Generalized Abdominal Pain Meets SIRS Criteria, elevated lactate levels Possibly Gastroparesis likely secondary to nursing home IDDM Patient had multiple admissions with similar symptoms CT ABD: No acute intra-abdominal pathology Received Cefepime in ED Continue IV fluids Repeat lactate levels Check procalcitonin Potassium, mag levels pending Blood/Urine Culture Check stool for C.diff Consulted GI Will hold off on Abx for now, pending labs Hypertensive Urgency: Patient admits to missing her HTN meds. ? Compliance Currently BP better Resume HTN meds monitor Dizziness/Vertigo: Likely secondary to dehydration CT head suggestive of possible NPH Antivert PRN check Orthostatics Neurology consulted Check MRI brain Adrenal Incidentaloma CT shows Left adrenal mass which increased in size since 2011 Needs work up as outpatient Previously evaluated by surgery: Needs to go to tertiary center if needs to be removed CKD III: Cr at baseline Monitor renal function IDDM: Last Hb A1C: 7.4 on 01/03/17 Update A1c ISS, Lantus Diabetic diet Pharmacy Glycemic control consult CAD s/p CABG and PCI continue current cardiac medications Denies chest pain H/O V.Fib s/p ICD Stable continue home meds QTC Prolongation: Avoid QTC prolonging meds repeat EKG in AM HLP: continue statins H/O asthma: no signs of exacerbation GERD: continue PPI DVT px SQ heparin Code Status Full Code Disposition: Monitor in Tele VTE Prophylaxis VTE Risk Assessment Done? Y/N: Yes Risk Level: Moderate
[2017-05-21] MEDS ORDERED: ALBUTEROL HFA 8 GM INHALER INH PRN (18:15)
[2017-05-21] MEDS ORDERED: NITROGLYCERIN 0.4 MG SL PER TAB CHARGE UT PRN (18:15)
[2017-05-21] MEDS ORDERED: POLYETHYLENE (MIRALAX) 17 GM PACK PO PRN (18:15)
[2017-05-21] MEDS ORDERED: PHARMACY GLYCEMIC MGMT CONSULT SCH (19:21)
[2017-05-21 20:11] VITALS: Ht 157.5 cm; Wt 85.7 kg
[2017-05-21 20:18] LABS: BETA-HYDROXYBUTYRATE 1.37 mg/dL (0.2-2.81)
[2017-05-21] MEDS ORDERED: NON-FORMULARY MEDICATION (Cyclosporine (Ophth) (Restasis) 1 DROP) OP SCH (21:00)
[2017-05-21] MEDS ORDERED: SODIUM CHLORIDE 0.9% 1000ML 1,000 ML IV ONE (21:28)
[2017-05-21] MEDS: INSULIN ASPART 100 UNITS/ML 3 ML PEN SC SCH (21:50)
[2017-05-21 22:00] VITALS: BP 179/94; PULSE 72; TEMP 36.7; O2SAT 96
[2017-05-21] MEDS: CLOPIDOGREL BISULFATE 75 MG TAB PO SCH (22:33)
[2017-05-21] MEDS: METOPROLOL SUCC 50MG EXT REL TAB PO SCH (22:33)
[2017-05-21] MEDS: LISINOPRIL 5 MG TAB PO SCH (22:34)
[2017-05-21] MEDS: MECLIZINE HCL 12.5 MG TAB PO PRN (22:34)
[2017-05-21] MEDS: PANTOprazole SOD 40 MG TAB PO SCH (22:39)
[2017-05-21] MEDS: DOCUSATE SODIUM/SENNA 50/8.6MG TAB PO SCH (22:40)
[2017-05-21] MEDS: DOCUSATE SODIUM 100 MG CAP PO SCH (22:40)
[2017-05-21] MEDS: PROMETHAZINE HCL INJ 12.5 MG in SODIUM CHLORIDE 0.9% 50ML 50 ML IV PRN (22:48)
[2017-05-21 23:57] VITALS: BP 176/93; PULSE 79; TEMP 36.8; O2SAT 99
[2017-05-22] VITALS (10 sets, daily range): BP systolic 114–175; BP diastolic 71–102; PULSE 83–102; TEMP 36.5–37; O2SAT 90–99
[2017-05-22 01:44] LABS: PROTHROMBIN TIME (PATIENT) 10.9 SECONDS (9.0-12.0)
[2017-05-22] MEDS: HydrALAZINE HCL 20 MG/ML VIAL IV. PRN ×2 (02:30→08:04)
[2017-05-22 05:42] LABS: BASO % 0.1 %; BASO ABS # 0.02 K/uL (0-0.2); COMPLETE YES; EOS % 0.1 %; HEMATOCRIT 40.3 % (37-47); IG% 0.5 %; LYMPH % 15.1 %; LYMPH ABS # 2.61 K/uL (1.2-3.4); MEAN CELL VOLUME 85.4 fL (80-100); MEAN CORPUSCULAR HEMOGLOBIN 28.8 pg (25-34); MEAN CORPUSCULAR HGB CONC 33.7 g/dl (32-36); MEAN PLATELET VOLUME 10.9 fL (7.4-10.4); MONO % 5.3 %; NEUT % 78.9 %; PLATELET COUNT 220 K/uL (130-400); RED BLOOD COUNT 4.72 M/uL (4.2-5.4); WHITE BLOOD COUNT 17.27 K/uL (4.8-10.8)
[2017-05-22] MEDS: HEPARIN SOD 5000 UNIT/0.5 ML CARP SQ SCH ×3 (05:45→20:57)
[2017-05-22 06:16] LABS: BUN/CREATININE RATIO 19.3 (10-20); CREATININE 0.88 mg/dl (0.60-1.20); POTASSIUM 3.7 mmol/L (3.5-5.1)
[2017-05-22] MEDS: PROMETHAZINE HCL INJ 12.5 MG in SODIUM CHLORIDE 0.9% 50ML 50 ML IV PRN (08:41)
[2017-05-22] MEDS: PANTOprazole SOD 40 MG TAB PO SCH ×2 (09:00→20:53)
[2017-05-22] MEDS ORDERED: INSULIN GLARGINE SOLOSTAR 100 UNITS/ML 3 ML PEN SC SCH ×2 (09:00→21:00)
[2017-05-22] MEDS: METOPROLOL SUCC 50MG EXT REL TAB PO SCH ×2 (10:00→20:53)
[2017-05-22] MEDS: ISOSORBIDE MONONITRATE 30 MG TABCR PO SCH (10:01)
[2017-05-22] MEDS: DOCUSATE SODIUM 100 MG CAP PO SCH ×2 (10:01→20:52)
[2017-05-22] MEDS: ESCITALOPRAM OXALATE 10 MG TAB PO SCH (10:02)
[2017-05-22] MEDS: ATORVASTATIN 40 MG TAB PO SCH (10:02)
[2017-05-22] MEDS: LISINOPRIL 5 MG TAB PO SCH ×2 (10:03→20:54)
[2017-05-22] MEDS: MECLIZINE HCL 12.5 MG TAB PO PRN (10:04)
[2017-05-22] MEDS: INSULIN ASPART 100 UNITS/ML 3 ML PEN SC SCH ×4 (10:10→20:56)
[2017-05-22] MEDS: ASPIRIN 81 MG ECTAB PO SCH (10:11)
[2017-05-22 11:25] LABS: ESTIMATED AVERAGE GLUCOSE 171 mg/dl; HA1C FLAG Normal (Normal)
--- NOTE | 2017-05-22 13:40 | Gastrointestinal Consultation ---
Gastrointestinal Consultation Date of Consultation: May 22, 2017 Attending Physician: Roque Fernandez Consulting Physician: Juan Luis Contreras Reason for Consultation: Possible gastroparesis History of Present Illness Patient is a 61 year old female w PMHx of diastolic HF, CAD s/p CABG, HTN, hyperlipidemia, asthma, tobacco abuse, mood disorder, DM II, hx of VTach/Vfib s/ p ICD placement, CKD III, GERD, chronic constipation, DDD who presented to ED for worsening n/v. She's not able to provide much ROS today - flat affect, doesn 't want to converse much though oriented x 3. Thus most of her information is obtained from her admission H&P, and outpt records. She had been having n/v, epigastric abd pain for months, was supposed to have EGD evaluation by Dr. Contreras yesterday but went to ED for worsening symptoms. Had been managed by PRITESH Almanzar with Phenergan suppository and Compazine. When I last saw her on 04/22 she was feeling well on the Compazine. Per admission H&P, pt reports having loose BMs, and fever, chills, dizziness w vertigo. No CP, SOB, URI symptoms. She's been afebrile since admission, also no emesis output and no BMs. Labs showed leukocytosis WBC 17, H/H w/o anemia, CMP grossly unremarkable, blood cx pending, urine cx growing GPCs, she received Cefepime IV yesterday. CT head showed no acute pathology, but suspicious for normal pressure hydrocephalus. CT abd/pelvis showed no acute pathology, + large stool burden in rectum, descending and sigmoid colon wall thickening likely due to underdistension, L adrenal nodule increased in size since 2013. CXR clear. Past Medical/Surgical History Medical Problems: (1) Abdominal pain, generalized Status: Acute (2) Adrenal nodule Status: Acute (3) Altered mental status Status: Acute (4) Ambulatory dysfunction Status: Acute (5) Blood in stool Status: Acute (6) Cardiomegaly Status: Acute (7) Chronic abdominal pain Status: Acute (8) Contusion of multiple sites Status: Acute (9) Dehydration Status: Acute (10) Dehydration Status: Acute (11) Dehydration Status: Acute (12) Dizziness Status: Acute (13) Epigastric abdominal pain Status: Acute (14) Fall Status: Acute (15) Hyperglycemia Status: Acute (16) Hyperglycemia Status: Acute (17) Influenza-like symptoms Status: Acute (18) Intractable nausea and vomiting Status: Acute (19) Nausea Status: Acute (20) Prolonged QT interval Status: Acute (21) Sepsis Status: Acute (22) SIRS (systemic inflammatory response syndrome) Status: Acute (23) Vomiting Status: Acute Social History Problems: (1) Diabetes mellitus Status: Chronic Past Medical History: See above Past Surgical History: Eye surgery, appendectomy, cholecystectomy, hysterectomy, CABG, Family History Diabetes mellitus FATHER BROTHER FH: cancer FH: lung disease FHx: heart disease MOTHER Hypertension MOTHER Kidney disease Kidney stones Social History Smoking Status: Former Smoker Alcohol Use: occasionally Drug Use: none Marital Status: Housing Status: lives alone Occupation Status: disabled Allergies Coded Allergies: BEE STING (Verified Allergy, Severe, SWELLING, 05/21/17) Lidocaine (Verified Allergy, Severe, ANAPHYLAXIS, 05/21/17) Morphine (Verified Allergy, Mild, itching, 05/21/17) Tramadol (Verified Allergy, Mild, ITCHING, 05/21/17) Trazodone (Verified Allergy, Mild, ITCHING, 05/21/17) Current Medications Home Meds and Scripts Medications Dose Route/Sig Max Daily Dose Days Date Category Dose Instructions Ventolin Hfa (Albuterol) 200 Puffs/43735 Mcg Aers 2 Puffs INH Q4 PRN 05/21/17 Reported Ketoconazole (Ketoconazole (Topical)) 2 % Sha 1 Appln TOP DAILY 30 05/21/17 Reported Prochlorperazine Maleate 5 Mg Tab 5 Mg PO Q6 PRN 05/21/17 Reported Restasis (Cyclosporine (Ophth)) 0.05 % Emu 1 Drop OP BID 05/21/17 Reported Miralax (Polyethylene Glycol 3350) 1 Pow Pow 17 Gm PO DAILY 05/21/17 Reported Prinivil (Lisinopril) 5 Mg Tab 5 Mg PO QPM 05/21/17 Reported Lisinopril 5 Mg Tab 10 Mg PO QAM 12/19/16 Reported Novolog Flexpen (Insulin Aspart) 100 Units/Ml Inj 33 Units SC AC 12/19/16 Reported DO NOT USE IF SHE DOESN'T EAT Docusate Sodium 100 Mg Cap 100 Mg PO BID 12/19/16 Reported Imdur Ext Rel (Isosorbide Mononitrate) 30 Mg Tabcr 90 Mg PO DAILY 11/27/16 Reported Atorvastatin Calcium (Atorvastatin) 40 Mg Tab 40 Mg PO DAILY 11/27/16 Reported Metoprolol Succinate ER (Metoprolol Succinate) 50 Mg Tabcr 50 Mg PO BID 11/27/16 Reported Lexapro (Escitalopram Oxalate) 10 Mg Tab 15 Mg PO QAM 02/08/15 Reported Aspirin Ec (Aspirin) 81 Mg Tab 81 Mg PO QAM 02/08/15 Reported Senna Plus (Sennosides-Docusate Sodium) 1 Tab Tab 1 Tab PO HS 09/22/14 Reported Plavix (Clopidogrel Bisulfate) 75 Mg Tab 75 Mg PO HS 03/25/13 Reported Protonix (Pantoprazole Sodium) 40 Mg Tab 40 Mg PO BID 05/10/11 Reported Nitrostat (Nitroglycerin) 0.4 Mg Tab 0.4 Mg UT UD PRN 08/18/09 Reported Review of Systems Constitutional: + see HPI (Unable to obtain much from pt. ) Abdomen: + nausea, No pain, No vomiting Physical Exam Date Time Temp Pulse Resp B/P (MAP) Pulse Ox O2 Delivery O2 Flow Rate FiO2 05/22/17 11:27 36.5 101 20 159/84 (109) 99 Room Air 05/22/17 10:00 97 138/80 (99) 05/22/17 07:56 36.6 83 18 175/96 (122) 90 05/22/17 05:50 83 166/82 (110) 05/22/17 04:17 36.6 87 16 175/102 (126) 98 Room Air 05/22/17 04:00 Room Air 05/22/17 00:00 Room Air 05/21/17 23:57 36.8 79 16 176/93 (120) 99 Room Air 05/21/17 22:00 36.7 72 16 179/94 (122) 96 Room Air 05/21/17 21:11 75 18 167/70 95 05/21/17 20:11 Room Air 05/21/17 20:01 05/21/17 20:00 80 17 170/82 98 05/21/17 19:32 76 05/21/17 19:31 05/21/17 19:30 76 20 172/98 97 05/21/17 17:40 80 16 165/70 95 Room Air 05/21/17 16:02 85 17 190/145 97 Room Air 05/21/17 15:39 84 19 186/99 97 Room Air 05/21/17 15:33 83 05/21/17 14:49 88 15 178/116 94 Room Air 05/21/17 14:23 103 193/91 05/21/17 14:21 105 16 193/91 98 Room Air 05/21/17 13:57 102 22 167/92 97 Room Air 05/21/17 13:10 107 18 177/114 99 Room Air 05/21/17 12:31 98 Room Air General Appearance: WD/WN, no apparent distress, + obese Eyes: normal inspection, PERRL, EOMI Neck: supple, no JVD, trachea midline Respiratory/Chest: normal breath sounds, no respiratory distress, no accessory muscle use Cardiovascular: regular rate, rhythm, no gallop, no murmur Abdomen: soft, + tenderness (mid lower and epigastric ) Extremities: normal inspection, no pedal edema, no calf tenderness Neurologic/Psych: oriented x 3, + depressed affect Skin: normal color, no jaundice, no rash Laboratory Results Last 24 Hours Test 05/21/17 12:24 05/21/17 15:29 05/21/17 16:08 05/21/17 21:45 White Blood Count 15.11 K/uL Red Blood Count 4.92 M/uL Hemoglobin 14.5 g/dL Hematocrit 42.1 % Mean Corpuscular Volume 85.6 fL Mean Corpuscular Hemoglobin 29.5 pg Mean Corpuscular Hemoglobin Concent 34.4 g/dl Platelet Count 228 K/uL Mean Platelet Volume 10.5 fL Neutrophils (%) (Auto) 77.0 % Lymphocytes (%) (Auto) 17.9 % Monocytes (%) (Auto) 4.6 % Eosinophils (%) (Auto) 0.0 % Basophils (%) (Auto) 0.1 % Neutrophils # (Auto) 11.62 K/uL Lymphocytes # (Auto) 2.71 K/uL Monocytes # (Auto) 0.70 K/uL Eosinophils # (Auto) 0.00 K/uL Basophils # (Auto) 0.02 K/uL RDW Standard Deviation 40.4 fL RDW Coefficient of Variation 12.9 % Immature Granulocyte % (Auto) 0.4 % Immature Granulocyte # (Auto) 0.06 K/uL Venous Blood pH 7.40 Venous Blood Partial Pressure CO2 54 mmHg Venous Blood Partial Pressure O2 29 mmHg Venous Blood HCO3 32 mmol/L Venous Blood Oxygen Saturation < 60.0 % Venous Blood Base Excess 5.9 mEq/L Sodium Level 135 mmol/L Potassium Level mmol/L mmol/L Chloride Level 98 mmol/L Carbon Dioxide Level 29 mmol/L Anion Gap 8.0 mmol/L Blood Urea Nitrogen 18 mg/dl Creatinine 1.19 mg/dl Est Creatinine Clear Calc Drug Dose 49.3 ml/min Estimated GFR () 56.3 Estimated GFR (Non- 48.5 BUN/Creatinine Ratio 15.1 Random Glucose 204 mg/dl Estimated Average Glucose 171 mg/dl Hemoglobin A1c 7.6 % Lactic Acid Level 3.9 mmol/L Calcium Level 10.5 mg/dl Magnesium Level mg/dl mg/dl Total Bilirubin 0.6 mg/dl Aspartate Amino Transf (AST/SGOT) U/L U/L Alanine Aminotransferase (ALT/SGPT) 20 U/L Alkaline Phosphatase 69 U/L Troponin I < 0.015 ng/ml Total Protein 10.3 gm/dl Albumin 4.2 gm/dl Globulin 6.1 gm/dl Albumin/Globulin Ratio 0.7 Lipase 59 U/L Beta-Hydroxybutyric Acid mg/dL 1.37 mg/dL Urine Color YELLOW Urine Appearance CLOUDY Urine pH 5.5 Urine Specific [place] > 1.045 Urine Protein 2+ Urine Glucose (UA) 2+ Urine Ketones TRACE Urine Occult Blood NEG Urine Nitrite NEG Urine Bilirubin NEG Urine Urobilinogen NEG Urine Leukocyte Esterase TRACE Urine WBC (Auto) 5-10 /hpf Urine RBC (Auto) 0-4 /hpf Urine Hyaline Casts (Auto) 1-5 /lpf Urine Epithelial Cells (Auto) >30 /lpf Urine Bacteria (Auto) 1+ Urine Crystals CALCIUM OXALATE Bedside Glucose 141 mg/dl Test 05/22/17 01:09 05/22/17 04:26 05/22/17 05:10 05/22/17 07:49 Prothrombin Time 10.9 SECONDS Prothromb Time International Ratio 1.0 Activated Partial Thromboplast Time 25.7 SECONDS Partial Thromboplastin Ratio 1.0 Procalcitonin < 0.05 ng/ml Lactic Acid Level 1.5 mmol/L White Blood Count 17.27 K/uL Red Blood Count 4.72 M/uL Hemoglobin 13.6 g/dL Hematocrit 40.3 % Mean Corpuscular Volume 85.4 fL Mean Corpuscular Hemoglobin 28.8 pg Mean Corpuscular Hemoglobin Concent 33.7 g/dl Platelet Count 220 K/uL Mean Platelet Volume 10.9 fL Neutrophils (%) (Auto) 78.9 % Lymphocytes (%) (Auto) 15.1 % Monocytes (%) (Auto) 5.3 % Eosinophils (%) (Auto) 0.1 % Basophils (%) (Auto) 0.1 % Neutrophils # (Auto) 13.62 K/uL Lymphocytes # (Auto) 2.61 K/uL Monocytes # (Auto) 0.92 K/uL Eosinophils # (Auto) 0.01 K/uL Basophils # (Auto) 0.02 K/uL RDW Standard Deviation 40.1 fL RDW Coefficient of Variation 12.9 % Immature Granulocyte % (Auto) 0.5 % Immature Granulocyte # (Auto) 0.09 K/uL Sodium Level 137 mmol/L Potassium Level 3.7 mmol/L Chloride Level 102 mmol/L Carbon Dioxide Level 22 mmol/L Anion Gap 13.0 mmol/L Blood Urea Nitrogen 17 mg/dl Creatinine 0.88 mg/dl Est Creatinine Clear Calc Drug Dose 66.7 ml/min Estimated GFR () 81.0 Estimated GFR (Non- 69.9 BUN/Creatinine Ratio 19.3 Random Glucose 216 mg/dl Calcium Level 9.0 mg/dl Bedside Glucose 210 mg/dl Impression Patient is a 61 year old female w worsening nausea, vomiting, epigastric abd pain (postprandial). She has had this symptoms for months, initially doing better on Compazine. Last EGD in 2010 showed some gastritis w/o Hpylori. Was scheduled for repeat EGD yesterday but came to ED and admitted. She was also complaining for diarrhea but no BMs since admission. CT showed large stool in rectum, may be having overflow diarrhea from constipation. - Certainly n/v, epigastric pain symptoms may be related to diabetic gastroparesis. Was offered repeat gastric emptying study in outpt setting before but she had declined due to test requiring her to ingest eggs/oatmeal. - No vomiting since admitted thus will continue current antiemetics. But may add short term Reglan 5mg IV BID if continued N/V. - Plan for EGD eval on 05/23. Keep NPO after midnight. Plan Attnd Addm: I have seen, examined, and agree with the plan as outlined above by PRITESH Amaya. N/V, may have gastroparesis but has not had an EGD for quite some time. NPO after MN for EGD Juan Luis Contreras M.D.
--- NOTE | 2017-05-22 14:54 | Pharmacy Progress Note ---
Glycemic Control Intl Consult Date of Service May 22, 2017. Scope Glycemic Pharmacist consulted by Dr Fernandez on 05/22/17 for glycemic control and to write orders per [facility] inpatient glycemic control protocol Objective Weight (Kilograms): 85.000 Accuchecks BSG (last 24hrs): Test 05/21/17 21:45 05/22/17 05:10 05/22/17 07:49 05/22/17 11:37 Bedside Glucose 141 mg/dl (70-90) 210 mg/dl (70-90) 270 mg/dl (70-90) Random Glucose 216 mg/dl (70-99) Laboratory Data (last 24hrs) Test 05/21/17 15:29 05/22/17 05:10 Potassium Level mmol/L 3.7 mmol/L Anion Gap 13.0 mmol/L BUN/Creatinine Ratio 19.3 Blood Urea Nitrogen 17 mg/dl Creatinine 0.88 mg/dl Sodium Level 137 mmol/L White Blood Count 17.27 K/uL Red Blood Count 4.72 M/uL Hemoglobin 13.6 g/dL Hematocrit 40.3 % Mean Corpuscular Volume 85.4 fL Mean Corpuscular Hemoglobin 28.8 pg Mean Corpuscular Hemoglobin Concent 33.7 g/dl Platelet Count 220 K/uL Mean Platelet Volume 10.9 fL Neutrophils (%) (Auto) 78.9 % Lymphocytes (%) (Auto) 15.1 % Monocytes (%) (Auto) 5.3 % Eosinophils (%) (Auto) 0.1 % Basophils (%) (Auto) 0.1 % Neutrophils # (Auto) 13.62 K/uL Lymphocytes # (Auto) 2.61 K/uL Monocytes # (Auto) 0.92 K/uL Eosinophils # (Auto) 0.01 K/uL Basophils # (Auto) 0.02 K/uL HbA1c Test 05/21/17 12:24 Hemoglobin A1c 7.6 % (4.5-5.6) H Recent Pertinent Medications Outpatient Anti-diabetic Regimen: * NovoLog 33 units SQ AC Assessment & Plan ASSESSMENT: * 61 yo T2DM female well known to pharmacy from previous admissions/glycemic consults * A1c significantly improved from 9.3% in August to 7.6% today. * Pt typically requires ~ 40 units of insulin per day while admitted with adequate control. * Pt med rec only reports high dose prandial insulin as an outpatient. * Pt with sustained hyperglycemia despite reduced PO intake. No basal insulin given last night. * Basal insulin needed for this hyperglycemia. Will dose basal insulin based on scale to prevent hypoglycemia with reduced PO intake PLAN FOR INPATIENT GLYCEMIC CONTROL: Initiate weight based SQ basal bolus insulin regimen c/w previous admission glycemic data * Basal insulin * Lantus 20 units SQ x 1 dose this AM then, Lantus 0-10 units SQ BID based on BSG * BSG < 150 mg/dl --> 0 units * BSG 150 mg/dl or above --> 10 units * Bolus insulin * NovoLog per scale ACHS or Q6hrs while NPO * Goal Range: Low 120 mg/dL - High 150 mg/dL * Correction Factor: 25 mg/dL/unit * Nutritional / Prandial insulin per carb ratio of 1 unit per 9 grams CHO consumed * Please note that the plan above was derived based on current level of insulin resistance and hospital stress. These recommendations are appropriate for inpatient admission only. Plan of care upon discharge will need to be reassessed to avoid potential outpatient hypo/hyperglycemia. Thank you.
--- NOTE | 2017-05-22 15:25 | Neurology Consultation ---
Neurology Consultation Date of Consultation: May 22, 2017. Attending Physician: Roque Fernandez MD Primary Care Physician: Reginaldo Ramirez D.O. Reason for Consultation: dizziness possible NPH History of Present Illness Source: patient Roberta is a 61 yr female with PMH: of chronic diastolic heart failure, CAD S/P CABG, cataract surgery HTN, HLP, asthma, past tobacco abuse, mood disorder, DM II, H/O VT/VF S/P ICD, CKD III, GERD, Chronic constipation, DDD, multiple admission with GI symptoms which is presumed to be diabetic gastroparesis and other problems presents with history of nausea, vomiting, dizziness, generalized weakness, abdominal pain and loose BMs. She states she started having multiple episodes of nausea, vomiting since yesterday and denies any blood in vomitus. Reports chronic epigastric abdominal pain since many months with intermittent, sharp, non radiating, sharp, increases with eating, associated with poor appetite and denies any blood in stools but loose BMs and fever, chills since today. Is also complaining of dizziness since 2 days which she describes as room spinning which worsens with head movement and decreases with sitting. She has uncontrolled HTN and admits that she missed her medications today. Uses walker/wheelchair at baseline. Denies any history of CP , SOB, cough, wheezing, slurred speech, confusion, N, V, one sided weakness, numbness tingling. Past Medical/Surgical History Medical Problems: (1) Abdominal pain, generalized Status: Acute (2) Adrenal nodule Status: Acute (3) Altered mental status Status: Acute (4) Ambulatory dysfunction Status: Acute (5) Blood in stool Status: Acute (6) Cardiomegaly Status: Acute (7) Chronic abdominal pain Status: Acute (8) Contusion of multiple sites Status: Acute (9) Dehydration Status: Acute (10) Dehydration Status: Acute (11) Dehydration Status: Acute (12) Dizziness Status: Acute (13) Epigastric abdominal pain Status: Acute (14) Fall Status: Acute (15) Hyperglycemia Status: Acute (16) Hyperglycemia Status: Acute (17) Influenza-like symptoms Status: Acute (18) Intractable nausea and vomiting Status: Acute (19) Nausea Status: Acute (20) Prolonged QT interval Status: Acute (21) Sepsis Status: Acute (22) SIRS (systemic inflammatory response syndrome) Status: Acute (23) Vomiting Status: Acute Social History Problems: (1) Diabetes mellitus Status: Chronic Social History Smoking Status: Never smoker Alcohol Use: none Drug Use: none Marital Status: Housing Status: lives alone Occupation Status: disabled Allergies Coded Allergies: BEE STING (Verified Allergy, Severe, SWELLING, 05/21/17) Lidocaine (Verified Allergy, Severe, ANAPHYLAXIS, 05/21/17) Morphine (Verified Allergy, Mild, itching, 05/21/17) Tramadol (Verified Allergy, Mild, ITCHING, 05/21/17) Trazodone (Verified Allergy, Mild, ITCHING, 05/21/17) Current Inpatient Medications Current Inpatient Medications Medications (Trade) Dose Ordered Sig/Tera Route Start Time Stop Time Status Last Admin Dose Admin Ioversol (Optiray 320) 125 ml UD PRN IV 05/21/17 14:30 05/25/17 14:29 Heparin Sodium (Porcine) (Heparin Sq 5000 Unit/0.5ml) 5,000 unit Q8H SQ 05/22/17 06:00 06/21/17 05:59 05/22/17 13:21 5,000 UNIT Acetaminophen (Tylenol Tab) 650 mg Q4H PRN PO 05/21/17 17:45 06/20/17 17:44 Al Hydrox/Mg Hydrox/Simethicone (Maalox Max Susp) 15 ml Q4H PRN PO 05/21/17 17:45 06/20/17 17:44 Insulin Aspart (novoLOG ASPART) SLIDING SCALE If C... ACHS SC 05/21/17 21:00 06/20/17 20:59 05/22/17 13:21 5 UNITS Glucose (Glucose 40% Gel) 15-30 GRAMS 15 GRAMS... UD PRN PO 05/21/17 17:45 06/20/17 17:44 Glucose (Glucose Chew Tab) 4-8 Tablets 4 Tabl... UD PRN PO 05/21/17 17:45 06/20/17 17:44 Dextrose (Dextrose 50% 50ML Syringe) 25-50ML OF 50% DW IV FOR... UD PRN IV 05/21/17 17:45 06/20/17 17:44 Glucagon (Glucagon Inj) 1 mg UD PRN SQ 05/21/17 17:45 06/20/17 17:44 Miscellaneous Information (Consult Glycemic Management Pharmacy) 1 ea UD N/A 05/21/17 19:21 06/20/17 19:20 Meclizine HCl (Antivert Tab) 12.5 mg TID PRN PO 05/21/17 18:00 06/20/17 17:59 05/22/17 10:04 12.5 MG Albuterol (Ventolin Hfa Inhaler) 2 puffs Q4 PRN INH 05/21/17 18:15 06/20/17 18:14 Aspirin (Ecotrin Tab) 81 mg QAM PO 05/22/17 09:00 06/21/17 08:59 05/22/17 10:11 81 MG Atorvastatin Calcium (Lipitor Tab) 40 mg DAILY PO 05/22/17 09:00 06/21/17 08:59 05/22/17 10:02 40 MG Clopidogrel Bisulfate (plAVix TAB) 75 mg HS PO 05/21/17 21:00 06/20/17 20:59 05/21/17 22:33 75 MG Docusate Sodium (coLACE CAP) 100 mg BID PO 05/21/17 21:00 06/20/17 20:59 05/22/17 10:01 100 MG Escitalopram Oxalate (Lexapro Tab) 15 mg QAM PO 05/22/17 09:00 06/21/17 08:59 05/22/17 10:02 15 MG Isosorbide Mononitrate (Imdur Ext Rel Tab) 90 mg DAILY PO 05/22/17 09:00 06/21/17 08:59 05/22/17 10:01 90 MG Lisinopril (Zestril Tab) 10 mg QAM PO 05/22/17 09:00 06/21/17 08:59 05/22/17 10:03 10 MG Lisinopril (Zestril Tab) 5 mg QPM PO 05/21/17 21:00 06/20/17 20:59 05/21/17 22:34 5 MG Metoprolol Succinate (Toprol Xl Tab) 50 mg BID PO 05/21/17 21:00 06/20/17 20:59 05/22/17 10:00 50 MG Nitroglycerin (Nitrostat Tab) 0.4 mg UD PRN UT 05/21/17 18:15 06/20/17 18:14 Pantoprazole Sodium (Protonix Tab) 40 mg BID PO 05/21/17 21:00 06/20/17 20:59 Senna/Docusate Sodium (Senokot S Tab) 1 tab HS PO 05/21/17 21:00 06/20/17 20:59 Polyethylene (Miralax Powder Packet) 17 gm DAILY PRN PO 05/21/17 18:15 06/20/17 18:14 Promethazine HCl 12.5 mg/Sodium Chloride 50.5 ml @ 204 mls/hr Q6H PRN IV 05/21/17 18:45 06/20/17 18:44 05/22/17 08:41 204 MLS/HR Sodium Chloride 1,000 ml @ 50 mls/hr Q20H ONCE IV 05/21/17 21:28 05/22/17 17:27 05/21/17 22:07 50 MLS/HR Miscellaneous Information (Order Awaiting Action) 1 ea QS N/A 05/22/17 00:00 06/21/17 00:00 Hydralazine HCl (HydrALAZINE INJ) 10 mg Q6 PRN IV. 05/22/17 01:45 06/21/17 01:44 05/22/17 08:04 10 MG Insulin Glargine (Lantus Solostar Pen) SEE PROTOCOL TEXT BID SC 05/22/17 21:00 06/21/17 20:59 Insulin Aspart (novoLOG ASPART) SLIDING SCALE If C... TODAY@0000,0400 SD 05/23/17 00:00 05/23/17 04:01 Physical Exam Vital Signs (Past 24 Hrs): Date Time Temp Pulse Resp B/P (MAP) Pulse Ox O2 Delivery O2 Flow Rate FiO2 05/22/17 12:00 Room Air 05/22/17 11:27 36.5 101 20 159/84 (109) 99 Room Air 05/22/17 10:00 97 138/80 (99) 05/22/17 08:00 Room Air 05/22/17 07:56 36.6 83 18 175/96 (122) 90 05/22/17 05:50 83 166/82 (110) 05/22/17 04:17 36.6 87 16 175/102 (126) 98 Room Air 05/22/17 04:00 Room Air 05/22/17 00:00 Room Air 05/21/17 23:57 36.8 79 16 176/93 (120) 99 Room Air 05/21/17 22:00 36.7 72 16 179/94 (122) 96 Room Air 05/21/17 21:11 75 18 167/70 95 05/21/17 20:11 Room Air 05/21/17 20:01 05/21/17 20:00 80 17 170/82 98 05/21/17 19:32 76 05/21/17 19:31 05/21/17 19:30 76 20 172/98 97 05/21/17 17:40 80 16 165/70 95 Room Air 05/21/17 16:02 85 17 190/145 97 Room Air 05/21/17 15:39 84 19 186/99 97 Room Air 05/21/17 15:33 83 Physical Exam: Constitutional: appearance nourished, sitting with sunglasses on Ears, Nose, Mouth and Throat: mucous membranes moist, no injection and skin normal, eyes normal Cardiovascular: normal S-1 and S-2 and regular rate and rhythm Respiratory: clear to auscultation (CTA) and no rales, ronchi or wheeze Musculoskeletal: no peripheral edema and good distal pulses Skin: no stigmata of neurocutaneous disease noted and normal and intact Eyes: extraocular muscles intact (EOMI) and pupils equal, round and reactive to light (PERRL) NEUROLOGIC EXAMINATION: Mental status: Alert and interactive Oriented 2017 knows she is in [facility] [employer], 2017, lives in [place] Oriented to person, able to close eyes, stick out tongue, point to ceiling with L hand Speech fluent with no evidence of aphasia Cranial Nerves smile eye brow raise symmetric, tongue midline Reflexes: Deep tendon reflexes were symmetrical and graded 2/5. Plantar responses were flexor. Sensory: to cool, vibration diminished, loss GT proprioception Coordination: finger to nose without bipass Gait/Stance: Posture sitting in bed Motor: Negative for pronator drift of out stretched arms with eyes closed. Strength: biceps triceps hand probate judge 5/5 hip flex plantar flex ext 5/5 Laboratory Results Past 24 Hours: 05/22/17 05:10 Red Blood Count 4.72, Mean Corpuscular Volume 85.4, Mean Corpuscular Hemoglobin 28.8, Mean Corpuscular Hemoglobin Concent 33.7, Mean Platelet Volume 10.9, Neutrophils (%) (Auto) 78.9, Lymphocytes (%) (Auto) 15.1, Monocytes (%) (Auto) 5.3, Eosinophils (%) (Auto) 0.1, Basophils (%) (Auto) 0.1, Neutrophils # (Auto) 13.62, Lymphocytes # (Auto) 2.61, Monocytes # (Auto) 0.92, Eosinophils # (Auto) 0.01, Basophils # (Auto) 0.02 05/22/17 05:10 Test 05/21/17 15:29 05/21/17 16:08 05/22/17 01:09 05/22/17 04:26 Magnesium Level mg/dl (1.8-2.4) Aspartate Amino Transf (AST/SGOT) U/L (15-37) Beta-Hydroxybutyric Acid 1.37 mg/dL (0.2-2.81) Urine Color YELLOW Urine Appearance CLOUDY (CLEAR) Urine pH 5.5 (4.5-7.5) Urine Specific [place] > 1.045 (1.000-1.030) Urine Protein 2+ (NEG) Urine Glucose (UA) 2+ (NEG) Urine Ketones TRACE (NEG) Urine Occult Blood NEG (NEG) Urine Nitrite NEG (NEG) Urine Bilirubin NEG (NEG) Urine Urobilinogen NEG (NEG) Urine Leukocyte Esterase TRACE (NEG) Urine WBC (Auto) 5-10 /hpf (0-5) Urine RBC (Auto) 0-4 /hpf (0-4) Urine Hyaline Casts (Auto) 1-5 /lpf (0-5) Urine Epithelial Cells (Auto) >30 /lpf (0-5) Urine Bacteria (Auto) 1+ (NEG) Urine Crystals CALCIUM OXALATE (NONE Prothrombin Time 10.9 SECONDS (9.0-12.0) Prothromb Time International Ratio 1.0 (0.9-1.1) Activated Partial Thromboplast Time 25.7 SECONDS (21.0-31.0) Partial Thromboplastin Ratio 1.0 Procalcitonin < 0.05 ng/ml (0-0.5) Lactic Acid Level 1.5 mmol/L (0.4-2.0) Test 05/22/17 05:10 11/8/17 11:37 White Blood Count 17.27 K/uL (4.8-10.8) Red Blood Count 4.72 M/uL (4.2-5.4) Hemoglobin 13.6 g/dL (12.0-16.0) Hematocrit 40.3 % (37-47) Mean Corpuscular Volume 85.4 fL (80-100) Mean Corpuscular Hemoglobin 28.8 pg (25-34) Mean Corpuscular Hemoglobin Concent 33.7 g/dl (32-36) Platelet Count 220 K/uL (130-400) Mean Platelet Volume 10.9 fL (7.4-10.4) Neutrophils (%) (Auto) 78.9 % Lymphocytes (%) (Auto) 15.1 % Monocytes (%) (Auto) 5.3 % Eosinophils (%) (Auto) 0.1 % Basophils (%) (Auto) 0.1 % Neutrophils # (Auto) 13.62 K/uL (1.4-6.5) Lymphocytes # (Auto) 2.61 K/uL (1.2-3.4) Monocytes # (Auto) 0.92 K/uL (0.11-0.59) Eosinophils # (Auto) 0.01 K/uL (0-0.5) Basophils # (Auto) 0.02 K/uL (0-0.2) RDW Standard Deviation 40.1 fL (36.4-46.3) RDW Coefficient of Variation 12.9 % (11.5-14.5) Immature Granulocyte % (Auto) 0.5 % Immature Granulocyte # (Auto) 0.09 K/uL (0.00-0.02) Anion Gap 13.0 mmol/L (3-11) Est Creatinine Clear Calc Drug Dose 66.7 ml/min Estimated GFR () 81.0 Estimated GFR (Non- 69.9 BUN/Creatinine Ratio 19.3 (10-20) Calcium Level 9.0 mg/dl (8.5-10.1) Bedside Glucose 270 mg/dl (70-90) Imaging 61 year old female with dizziness and possible NPH Impression 61 year old female nausea vomiting dizziness Plan 1. PT/OT speech for discharge needs- possible labyrinthine maneuver to reproduce 2. MRI to better define findings on CT brain and define any structure or acute finding. 3. treat UTI -may cause confusion 4. medial management per primary team further recommendations to follow I have seen and discussed above patient with Dr Santa Umaña, neurology Pt is a vague historian and it is unclear whether pt had lightheadedness or vertigo. exam notable for mild flattening of L nf, and signs of neuropathy, likely diabetic. Rec MRI brain to eval for ischemia, TOM Umaña MD
[2017-05-22] MEDS ORDERED: MICONAZOLE NITRATE POWDER 43 GM EXT PRN (15:30)
[2017-05-22] MEDS ORDERED: NURSING DECISION MEDICATION ORDER SCH (15:30)
--- NOTE | 2017-05-22 15:45 | Progress Note ---
Internal Med Progress Note Date of Service: May 22, 2017. Provider Documentation: SUBJECTIVE: Seen and examined at bedside States abdominal pain is much improved Nausea this morning but no vomiting Denies chest pain, SOB Planned for EGD in AM No other complaints OBJECTIVE: Vital Signs-as noted below General Appearance: WD/WN, no apparent distress Head: normocephalic, atraumatic Eyes: normal inspection, PERRL, EOMI, sclerae normal ENT: normal ENT inspection, hearing grossly normal Neck: supple, no JVD, trachea midline Respiratory/Chest: chest non-tender, lungs clear, normal breath sounds, no respiratory distress, no accessory muscle use Cardiovascular: regular rate, rhythm, no edema, no murmur Abdomen/GI: normal bowel sounds, soft, non tender, obese Back: normal inspection Extremities/Musculoskelatal: normal inspection, no pedal edema Neurologic/Psych: manager creative services II-XII nml as tested, no motor/sensory deficits, alert, normal mood/affect, oriented x 3 Skin: normal color, warm/dry Lab data as noted below. ASSESSMENT & PLAN: Nausea, Vomiting, Generalized Abdominal Pain Possibly Gastroparesis likely secondary to [facility] IDDM Patient had multiple admissions with similar symptoms CT ABD: No acute intra-abdominal pathology; Large stool burden in rectum H/O Gastritis in past Refused gastric emptying study as outpatient Check stool for C.diff Appreciate GI Input NPO after midnight for EGD in AM Plan to add Reglan if Nausea/vomiting worsens Sepsis/UTI: Urine Culture:Gram positive cocci Blood cultures: pending Received Cefepime in ED Will start on Rocephin Day # 2 Lactate levels normalized Normal Procalcitonin S/P IV fluids Hypertensive Urgency: Patient admits to missing her HTN meds. ? Compliance Stable Continue current HTN meds monitor Dizziness/Vertigo: Likely secondary to dehydration CT head suggestive of possible NPH Antivert PRN check Orthostatics Neurology consulted Could not get MRI brain secondary to pacemaker Adrenal Incidentaloma CT shows Left adrenal mass which increased in size since 2011 Needs work up as outpatient Previously evaluated by surgery: Needs to go to tertiary center if needs to be removed CKD III: Cr at baseline Monitor renal function IDDM: Last Hb A1C: 7.4 on 01/03/17 A1c:7.6 ISS, Lantus Diabetic diet Pharmacy Glycemic control consult CAD s/p CABG and PCI continue current cardiac medications Denies chest pain H/O V.Fib s/p ICD Stable continue home meds QTC Prolongation: Avoid QTC prolonging meds repeat EKG: QTC normalized HLP: continue statins H/O asthma: no signs of exacerbation GERD: continue PPI DVT px SQ heparin Code Status Full Code Disposition: Monitor in Tele Vital Signs: Date Time Temp Pulse Resp B/P (MAP) Pulse Ox O2 Delivery O2 Flow Rate FiO2 05/22/17 15:38 36.6 102 18 137/78 (97) 98 Room Air 05/22/17 12:00 Room Air 05/22/17 11:27 36.5 101 20 159/84 (109) 99 Room Air 05/22/17 10:00 97 138/80 (99) 05/22/17 08:00 Room Air 05/22/17 07:56 36.6 83 18 175/96 (122) 90 05/22/17 05:50 83 166/82 (110) 05/22/17 04:17 36.6 87 16 175/102 (126) 98 Room Air 05/22/17 04:00 Room Air 05/22/17 00:00 Room Air 05/21/17 23:57 36.8 79 16 176/93 (120) 99 Room Air 05/21/17 22:00 36.7 72 16 179/94 (122) 96 Room Air 05/21/17 21:11 75 18 167/70 95 05/21/17 20:11 Room Air 05/21/17 20:01 05/21/17 20:00 80 17 170/82 98 05/21/17 19:32 76 05/21/17 19:31 05/21/17 19:30 76 20 172/98 97 05/21/17 17:40 80 16 165/70 95 Room Air Lab Results: Results Past 24 Hours Test 05/21/17 21:45 05/22/17 01:09 05/22/17 04:26 05/22/17 05:10 Range/Units Bedside Glucose 141 70-90 mg/dl Prothrombin Time 10.9 9.0-12.0 SECONDS Prothromb Time International Ratio 1.0 0.9-1.1 Activated Partial Thromboplast Time 25.7 21.0-31.0 SECONDS Partial Thromboplastin Ratio 1.0 Procalcitonin < 0.05 0-0.5 ng/ml Lactic Acid Level 1.5 0.4-2.0 mmol/L White Blood Count 17.27 4.8-10.8 K/uL Red Blood Count 4.72 4.2-5.4 M/uL Hemoglobin 13.6 12.0-16.0 g/dL Hematocrit 40.3 37-47 % Mean Corpuscular Volume 85.4 80-100 fL Mean Corpuscular Hemoglobin 28.8 25-34 pg Mean Corpuscular Hemoglobin Concent 33.7 32-36 g/dl Platelet Count 220 130-400 K/uL Mean Platelet Volume 10.9 7.4-10.4 fL Neutrophils (%) (Auto) 78.9 % Lymphocytes (%) (Auto) 15.1 % Monocytes (%) (Auto) 5.3 % Eosinophils (%) (Auto) 0.1 % Basophils (%) (Auto) 0.1 % Neutrophils # (Auto) 13.62 1.4-6.5 K/uL Lymphocytes # (Auto) 2.61 1.2-3.4 K/uL Monocytes # (Auto) 0.92 0.11-0.59 K/uL Eosinophils # (Auto) 0.01 0-0.5 K/uL Basophils # (Auto) 0.02 0-0.2 K/uL RDW Standard Deviation 40.1 36.4-46.3 fL RDW Coefficient of Variation 12.9 11.5-14.5 % Immature Granulocyte % (Auto) 0.5 % Immature Granulocyte # (Auto) 0.09 0.00-0.02 K/uL Sodium Level 137 136-145 mmol/L Potassium Level 3.7 3.5-5.1 mmol/L Chloride Level 102 98-107 mmol/L Carbon Dioxide Level 22 21-32 mmol/L Anion Gap 13.0 3-11 mmol/L Blood Urea Nitrogen 17 7-18 mg/dl Creatinine 0.88 0.60-1.20 mg/dl Est Creatinine Clear Calc Drug Dose 66.7 ml/min Estimated GFR () 81.0 Estimated GFR (Non- 69.9 BUN/Creatinine Ratio 19.3 10-20 Random Glucose 216 70-99 mg/dl Calcium Level 9.0 8.5-10.1 mg/dl Test 05/22/17 07:49 05/22/17 11:37 Range/Units Bedside Glucose 210 270 70-90 mg/dl
[2017-05-22] MEDS ORDERED: CEFTRIAXONE SOD INJ 1 GM in DEXTROSE 5% ADD-VANTAGE 50ML 50 ML IV SCH (16:00)
[2017-05-22] MEDS: CLOPIDOGREL BISULFATE 75 MG TAB PO SCH (20:52)
[2017-05-22] MEDS: DOCUSATE SODIUM/SENNA 50/8.6MG TAB PO SCH (20:54)
[2017-05-23] VITALS (18 sets, daily range): BP systolic 80–177; BP diastolic 49–84; PULSE 68–83; TEMP 36.5–37.1; O2SAT 94–96
[2017-05-23] MEDS: INSULIN ASPART 100 UNITS/ML 3 ML PEN SC SCH ×6 (04:00→21:21)
[2017-05-23] MEDS: HEPARIN SOD 5000 UNIT/0.5 ML CARP SQ SCH ×3 (06:00→21:21)
[2017-05-23] MEDS: HydrALAZINE HCL 20 MG/ML VIAL IV. PRN (07:47)
[2017-05-23] MEDS: ASPIRIN 81 MG ECTAB PO SCH ×2 (08:37→10:57)
[2017-05-23] MEDS: ESCITALOPRAM OXALATE 10 MG TAB PO SCH ×2 (08:37→10:57)
[2017-05-23] MEDS: ISOSORBIDE MONONITRATE 30 MG TABCR PO SCH ×2 (08:37→10:57)
[2017-05-23] MEDS: ATORVASTATIN 40 MG TAB PO SCH ×2 (08:37→10:57)
[2017-05-23] MEDS: DOCUSATE SODIUM 100 MG CAP PO SCH ×3 (08:37→21:00)
[2017-05-23] MEDS: METOPROLOL SUCC 50MG EXT REL TAB PO SCH ×3 (08:37→21:00)
[2017-05-23] MEDS: PANTOprazole SOD 40 MG TAB PO SCH ×3 (08:38→21:00)
[2017-05-23] MEDS: LISINOPRIL 5 MG TAB PO SCH ×3 (08:38→21:00)
--- NOTE | 2017-05-23 08:43 | Pharmacy Progress Note ---
Glycemic: Assessment & Plan Date of Service May 23, 2017. Assessment & Plan Outpatient Anti-diabetic Regimen: * NovoLog 33 units SQ AC ASSESSMENT: * See note from 05/22/17 for more background info, in short, patient's home regimen of Novolog AC on hold and basal/bolus initiated * Per past admission data, patient usually requires ~40 units of insulin per day * Over the past 24 hours - BSGs ranging 133-270 mg/L * 20 units of Lantus given and BSGs trended down throughout the day * Prandial coverage seemed to be appropriate once basal insulin took effect * Continue regimen based on ~40 units of insulin per day PLAN FOR INPATIENT GLYCEMIC CONTROL: * Basal insulin * Lantus 20 units SQ daily * Bolus insulin * NovoLog per scale ACHS or Q6hrs while NPO * Goal Range: Low 120 mg/dL - High 150 mg/dL * Correction Factor: 25 mg/dL/unit * Nutritional / Prandial insulin per carb ratio of 1 unit per 9 grams CHO consumed * Please note that the plan above was derived based on current level of insulin resistance and hospital stress. These recommendations are appropriate for inpatient admission only. Plan of care upon discharge will need to be reassessed to avoid potential outpatient hypo/hyperglycemia. Thank you.
[2017-05-23] MEDS ORDERED: NURSING VERBAL MED ORDER ONE (08:45)
[2017-05-23] MEDS: INSULIN GLARGINE SOLOSTAR 100 UNITS/ML 3 ML PEN SC SCH (08:46)
--- NOTE | 2017-05-23 09:12 | Progress Note ---
Progress Note Date of Service May 23, 2017. Progress Note 61 with chronic n/v presenting for EGD. Improved since adm Plan for EGD this AM
[2017-05-23] MEDS ORDERED: FENTANYL CITRATE INJ 50 MCG/1 ML 2 ML VIAL ONE (09:19)
[2017-05-23] MEDS ORDERED: PROPOFOL IV EMULSION 10 MG/ML 20 ML VIAL IV ONE (09:19)
[2017-05-23] MEDS ORDERED: ONDANSETRON INJ 2 MG/ML 2 ML VIAL ONE (09:19)
[2017-05-23] MEDS ORDERED: LIDOCAINE HCL 2% 2 ML VIAL (20MG/ML) ONE (09:19)
[2017-05-23] MEDS ORDERED: ETOMIDATE 2 MG/ML 20 ML VIAL IV ONE (09:41)
--- NOTE | 2017-05-23 09:50 | GI REPORT ---
Procedure Date: 05/23/2017 9:25 AM Procedure: Upper GI endoscopy Indications: Nausea with vomiting Medicines: General Anesthesia Complications: No immediate complications. Estimated blood loss: None. Estimated Blood Loss: Estimated blood loss: none. Procedure: Pre-Anesthesia Assessment: - Pre-Anesthesia Assessment: - Prior to the procedure, a History and Physical was performed, and patient medications, allergies and sensitivities were reviewed. The patient's tolerance of previous anesthesia was reviewed. Please see [facility] for complete details. - The risks and benefits of the procedure and the sedation options and risks were discussed with the patient. All questions were answered and informed consent was obtained. - Patient identification and proposed procedure were verified prior to the procedure by the physician and the nurse. The procedure was verified in the pre-procedure area in the procedure room. After obtaining informed consent, the endoscope was passed carefully and meticuously under direct vision and only advanced when the lumen was clearly identified, C02 insuflation was utilized throughout the entirity of the procedure. Throughout the procedure, the patient's blood pressure, pulse, and oxygen saturations were monitored continuously. After obtaining informed consent, the endoscope was passed under direct vision. Throughout the procedure, the patient's blood pressure, pulse, and oxygen saturations were monitored continuously. The Scope was introduced through the mouth, and advanced to the second part of duodenum. The upper GI endoscopy was accomplished without difficulty. The patient tolerated the procedure well. Findings: LA Grade A (one or more mucosal breaks less than 5 mm, not extending between tops of 2 mucosal folds) esophagitis with no bleeding was found. Biopsies were taken with a cold forceps for histology. The entire examined stomach was normal. Biopsies were taken with a cold forceps for histology. The examined duodenum was normal. Biopsies for histology were taken with a cold forceps for evaluation of celiac disease. Impression: - LA Grade A reflux esophagitis. Biopsied. - Normal stomach. Biopsied. - Normal examined duodenum. Biopsied. Recommendation: - Await pathology results. - [facility] for possible discharge same day. - Gastroparesis diet. - Use Prilosec (omeprazole) 20 mg PO daily. Juan Luis Contreras MD 05/23/2017 9:49:38 AM This report has been signed electronically. Note Initiated On: 05/23/2017 9:25 AM I attest to the content of the Intraoperative Record and orders documented therein, exceptions below
--- NOTE | 2017-05-23 10:12 | Anesthesiology Progress Note ---
Anesthesia Post Op Note Date & Time May 23, 2017 at 10:12 Vital Signs Pain Intensity: 0.0 Vital Signs Past 12 Hours Date Time Temp Pulse Resp B/P (MAP) Pulse Ox O2 Delivery O2 Flow Rate FiO2 05/23/17 10:02 78 16 168/85 (112) 96 Room Air 05/23/17 09:47 72 12 171/77 (108) 98 Room Air 05/23/17 09:12 36.3 78 20 132/55 (80) 99 Room Air 05/23/17 08:52 95 Room Air 05/23/17 08:48 77 18 121/74 (90) 96 Room Air 05/23/17 07:45 77 18 177/77 (110) 96 Room Air 05/23/17 07:30 96 Room Air 05/23/17 07:24 95 05/23/17 07:20 36.8 68 16 170/83 (112) Room Air 05/23/17 04:36 37.1 72 16 168/83 (111) 96 Room Air 05/23/17 04:00 Room Air 05/23/17 00:08 36.8 74 18 163/79 (107) 96 Room Air 156/81 (106) 05/23/17 00:00 Room Air Notes Mental Status: alert / awake / arousable, participated in evaluation Pt Amnestic to Procedure: Yes Nausea / Vomiting: adequately controlled Pain: adequately controlled Airway Patency, RR, SpO2: stable & adequate BP & HR: stable & adequate Hydration State: stable & adequate Anesthetic Complications: no major complications apparent
--- NOTE | 2017-05-23 11:47 | Progress Note ---
Internal Med Progress Note Date of Service: May 23, 2017. Provider Documentation: SUBJECTIVE: Seen and examined at bedside Had EGD today Feels tired Minimal Abdominal discomfort Denies Nausea, vomiting, chest pain, SOB, dizziness No other complaints OBJECTIVE: Vital Signs-as noted below General Appearance: WD/WN, no apparent distress Head: normocephalic, atraumatic Eyes: normal inspection, PERRL, EOMI, sclerae normal ENT: normal ENT inspection, hearing grossly normal Neck: supple, no JVD, trachea midline Respiratory/Chest: chest non-tender, lungs clear, normal breath sounds, no respiratory distress, no accessory muscle use Cardiovascular: regular rate, rhythm, no edema, no murmur Abdomen/GI: normal bowel sounds, soft, non tender, obese Back: normal inspection Extremities/Musculoskelatal: normal inspection, no pedal edema 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 ? Compliance Stable Continue current HTN meds monitor Dizziness/Vertigo: Likely secondary to dehydration CT head suggestive of possible NPH Antivert PRN Neurology consulted Could not get MRI brain secondary to pacemaker Adrenal Incidentaloma CT shows Left adrenal mass which increased in size since 2012 Needs work up as outpatient Previously evaluated by surgery: Needs to go to tertiary center if needs to be removed CKD III: Cr at baseline Monitor renal function IDDM: Last Hb A1C: 7.4 on 01/03/17 A1c:7.6 ISS, Lantus Diabetic diet Pharmacy Glycemic control consult CAD s/p CABG and PCI continue current cardiac medications Denies chest pain H/O V.Fib s/p ICD Stable continue home meds QTC Prolongation: Avoid QTC prolonging meds repeat EKG: QTC normalized HLP: continue statins H/O asthma: no signs of exacerbation GERD: continue PPI DVT px SQ heparin Code Status Full Code Disposition: Monitor in Tele PROCEDURES: EGD: Impression: - LA Grade A reflux esophagitis. Biopsied. - Normal stomach. Biopsied. - Normal examined duodenum. Biopsied. Recommendation: - Await pathology results. - [facility] possible [facility] same day. - Gastroparesis diet. - Use Prilosec (omeprazole) 20 mg PO daily. Vital Signs: Date Time Temp Pulse Resp B/P (MAP) Pulse Ox O2 Delivery O2 Flow Rate FiO2 05/23/17 12:26 102/64 (77) 05/23/17 12:13 36.6 78 18 80/54 (63) 94 84/49 (61) 05/23/17 10:45 36.5 83 18 151/84 (106) 96 Room Air 05/23/17 10:17 85 16 148/76 (100) 97 Room Air 05/23/17 10:02 78 16 168/85 (112) 96 Room Air 05/23/17 09:47 72 12 171/77 (108) 98 Room Air 05/23/17 09:12 36.3 78 20 132/55 (80) 99 Room Air 05/23/17 08:52 95 Room Air 05/23/17 08:48 77 18 121/74 (90) 96 Room Air 05/23/17 07:45 77 18 177/77 (110) 96 Room Air 05/23/17 07:30 96 Room Air 05/23/17 07:24 95 05/23/17 07:20 36.8 68 16 170/83 (112) Room Air 05/23/17 04:36 37.1 72 16 168/83 (111) 96 Room Air 05/23/17 04:00 Room Air 05/23/17 00:08 36.8 74 18 163/79 (107) 96 Room Air 156/81 (106) 05/23/17 00:00 Room Air 05/22/17 22:07 Room Air 05/22/17 21:17 37.0 87 18 114/71 (85) 96 Room Air 05/22/17 20:49 93 126/81 (96) 05/22/17 20:00 96 Room Air 05/22/17 16:00 98 Room Air 05/22/17 15:38 36.6 102 18 137/78 (97) 98 Room Air Lab Results: Results Past 24 Hours Test 05/22/17 16:25 05/22/17 20:45 05/23/17 00:27 05/23/17 07:08 Range/Units Bedside Glucose 233 137 152 167 70-90 mg/dl Test 05/23/17 11:01 05/23/17 12:24 Range/Units Bedside Glucose 191 70-90 mg/dl White Blood Count 12.97 4.8-10.8 K/uL Red Blood Count 4.56 4.2-5.4 M/uL Hemoglobin 13.0 12.0-16.0 g/dL Hematocrit 39.7 37-47 % Mean Corpuscular Volume 87.1 80-100 fL Mean Corpuscular Hemoglobin 28.5 25-34 pg Mean Corpuscular Hemoglobin Concent 32.7 32-36 g/dl Platelet Count 219 130-400 K/uL Mean Platelet Volume 10.5 7.4-10.4 fL Neutrophils (%) (Auto) 59.3 % Lymphocytes (%) (Auto) 31.7 % Monocytes (%) (Auto) 8.5 % Eosinophils (%) (Auto) 0.0 % Basophils (%) (Auto) 0.2 % Neutrophils # (Auto) 7.69 1.4-6.5 K/uL Lymphocytes # (Auto) 4.11 1.2-3.4 K/uL Monocytes # (Auto) 1.10 0.11-0.59 K/uL Eosinophils # (Auto) 0.00 0-0.5 K/uL Basophils # (Auto) 0.03 0-0.2 K/uL RDW Standard Deviation 41.4 36.4-46.3 fL RDW Coefficient of Variation 12.9 11.5-14.5 % Immature Granulocyte % (Auto) 0.3 % Immature Granulocyte # (Auto) 0.04 0.00-0.02 K/uL Sodium Level 138 136-145 mmol/L Potassium Level 3.5 3.5-5.1 mmol/L Chloride Level 101 98-107 mmol/L Carbon Dioxide Level 30 21-32 mmol/L Anion Gap 7.0 3-11 mmol/L Blood Urea Nitrogen 25 7-18 mg/dl Creatinine 1.38 0.60-1.20 mg/dl Est Creatinine Clear Calc Drug Dose 42.2 ml/min Estimated GFR () 47.0 Estimated GFR (Non- 40.6 BUN/Creatinine Ratio 18.3 10-20 Random Glucose 262 70-99 mg/dl Calcium Level 9.1 8.5-10.1 mg/dl Chemistry Specimen Hemolysis
[2017-05-23] MEDS ORDERED: INSULIN GLARGINE SOLOSTAR 100 UNITS/ML 3 ML PEN SC ONE (12:00)
[2017-05-23 12:34] LABS: BASO % 0.2 %; BASO ABS # 0.03 K/uL (0-0.2); COMPLETE YES; HEMATOCRIT 39.7 % (37-47); IG% 0.3 %; LYMPH % 31.7 %; LYMPH ABS # 4.11 K/uL (1.2-3.4); MEAN CELL VOLUME 87.1 fL (80-100); MEAN CORPUSCULAR HEMOGLOBIN 28.5 pg (25-34); MEAN CORPUSCULAR HGB CONC 32.7 g/dl (32-36); MEAN PLATELET VOLUME 10.5 fL (7.4-10.4); MONO % 8.5 %; NEUT % 59.3 %; PLATELET COUNT 219 K/uL (130-400); RED BLOOD COUNT 4.56 M/uL (4.2-5.4); WHITE BLOOD COUNT 12.97 K/uL (4.8-10.8)
[2017-05-23] MEDS: AMOXICILLIN/CLAVULANATE TAB 500 MG TAB PO SCH ×2 (12:45→17:24)
[2017-05-23 13:02] LABS: BUN/CREATININE RATIO 18.3 (10-20); CALCIUM 9.1 mg/dl (8.5-10.1); CREATININE 1.38 mg/dl (0.60-1.20); POTASSIUM 3.5 mmol/L (3.5-5.1)
[2017-05-23] MEDS ORDERED: SODIUM CHLORIDE 0.9% 1000ML 500 ML IV ONE (13:15)
[2017-05-23] MEDS ORDERED: SODIUM CHLORIDE 0.9% 500ML 500 ML IV ONE (13:45)
[2017-05-23] MEDS: ACETAMINOPHEN 325 MG TAB PO PRN (14:17)
--- NOTE | 2017-05-23 14:49 | Neurology Progress Notes ---
Neurology Progress Note Date of Service May 23, 2017. Subjective Roberta is a 61 yr female with PMH: of chronic diastolic heart failure, CAD S/P CABG, cataract surgery HTN, HLP, asthma, past tobacco abuse, mood disorder, DM II, H/O VT/VF S/P ICD, CKD III, GERD, Chronic constipation, DDD, multiple admission with GI symptoms which is presumed to be diabetic gastroparesis and other problems presents with history of nausea, vomiting, dizziness, generalized weakness, abdominal pain and loose BMs. She states she started having multiple episodes of nausea, vomiting since yesterday and denies any blood in vomitus. Reports chronic epigastric abdominal pain since many months with intermittent, sharp, non radiating, sharp, increases with eating, associated with poor appetite and denies any blood in stools but loose BMs and fever, chills since today. Is also complaining of dizziness since 2 days which she describes as room spinning which worsens with head movement and decreases with sitting. She has uncontrolled HTN and admits that she missed her medications today. Uses walker/wheelchair at baseline. Today she is sitting in the room with dark glasses on. States she didn't eat lunch but she never eats much. Denies any history of CP, SOB, cough, wheezing, slurred speech, confusion, N, V, one sided weakness, numbness tingling bowel or bladder issues Objective Date Time Temp Pulse Resp B/P (MAP) Pulse Ox O2 Delivery O2 Flow Rate FiO2 05/23/17 12:26 102/64 (77) 05/23/17 12:13 36.6 78 18 80/54 (63) 94 84/49 (61) 05/23/17 12:00 96 Room Air 05/23/17 10:45 36.5 83 18 151/84 (106) 96 Room Air 05/23/17 10:17 85 16 148/76 (100) 97 Room Air 05/23/17 10:02 78 16 168/85 (112) 96 Room Air 05/23/17 09:47 72 12 171/77 (108) 98 Room Air 05/23/17 09:12 36.3 78 20 132/55 (80) 99 Room Air 05/23/17 08:52 95 Room Air 05/23/17 08:48 77 18 121/74 (90) 96 Room Air 05/23/17 07:45 77 18 177/77 (110) 96 Room Air 05/23/17 07:30 96 Room Air 05/23/17 07:24 95 05/23/17 07:20 36.8 68 16 170/83 (112) Room Air 05/23/17 04:36 37.1 72 16 168/83 (111) 96 Room Air 05/23/17 04:00 Room Air 05/23/17 00:08 36.8 74 18 163/79 (107) 96 Room Air 156/81 (106) 05/23/17 00:00 Room Air 05/22/17 22:07 Room Air 05/22/17 21:17 37.0 87 18 114/71 (85) 96 Room Air 05/22/17 20:49 93 126/81 (96) 05/22/17 20:00 96 Room Air 05/22/17 16:00 98 Room Air 05/22/17 15:38 36.6 102 18 137/78 (97) 98 Room Air Last 24 Hours Test 05/22/17 16:25 05/22/17 20:45 05/23/17 00:27 05/23/17 07:08 Bedside Glucose 233 mg/dl 137 mg/dl 152 mg/dl 167 mg/dl Test 05/23/17 11:01 05/23/17 12:24 Bedside Glucose 191 mg/dl White Blood Count 12.97 K/uL Red Blood Count 4.56 M/uL Hemoglobin 13.0 g/dL Hematocrit 39.7 % Mean Corpuscular Volume 87.1 fL Mean Corpuscular Hemoglobin 28.5 pg Mean Corpuscular Hemoglobin Concent 32.7 g/dl Platelet Count 219 K/uL Mean Platelet Volume 10.5 fL Neutrophils (%) (Auto) 59.3 % Lymphocytes (%) (Auto) 31.7 % Monocytes (%) (Auto) 8.5 % Eosinophils (%) (Auto) 0.0 % Basophils (%) (Auto) 0.2 % Neutrophils # (Auto) 7.69 K/uL Lymphocytes # (Auto) 4.11 K/uL Monocytes # (Auto) 1.10 K/uL Eosinophils # (Auto) 0.00 K/uL Basophils # (Auto) 0.03 K/uL RDW Standard Deviation 41.4 fL RDW Coefficient of Variation 12.9 % Immature Granulocyte % (Auto) 0.3 % Immature Granulocyte # (Auto) 0.04 K/uL Sodium Level 138 mmol/L Potassium Level 3.5 mmol/L Chloride Level 101 mmol/L Carbon Dioxide Level 30 mmol/L Anion Gap 7.0 mmol/L Blood Urea Nitrogen 25 mg/dl Creatinine 1.38 mg/dl Est Creatinine Clear Calc Drug Dose 42.2 ml/min Estimated GFR () 47.0 Estimated GFR (Non- 40.6 BUN/Creatinine Ratio 18.3 Random Glucose 262 mg/dl Calcium Level 9.1 mg/dl Chemistry Specimen Hemolysis Imaging: no new imaging Exam: Physical Exam: Constitutional: appearance nourished, healthy and obese Ears, Nose, Mouth and Throat: mucous membranes moist, no injection and skin normal, eyes normal Cardiovascular: normal S-1 and S-2 and regular rate and rhythm Respiratory: clear to auscultation (CTA) and no rales, rhonchi or wheeze Musculoskeletal: no peripheral edema Skin: no stigmata of neurocutaneous disease noted and normal and intact Eyes: extraocular muscles intact (EOMI) and pupils equal, round and reactive to light (PERRL) NEUROLOGIC EXAMINATION: Mental status: Alert and interactive Oriented to full date and location Oriented to person Speech fluent with no evidence of aphasia Cranial Nerves smile eye brow raise symmetric Reflexes: Deep tendon reflexes were symmetrical and graded 2/5. Sensory: cool sensation intact, vibration decreased, GT proprioception absent Coordination: finger to nose without bi pass, no reaching tremor Gait/Stance: Posture lying in bed Motor: Negative for pronator drift of out stretched arms with eyes closed. 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 ACHS SC 05/21/17 21:00 06/20/17 20:59 05/23/17 12:44 5 UNITS Glucose (Glucose 40% Gel) 15-30 GRAMS 15 GRAMS... UD PRN PO 05/21/17 17:45 06/20/17 17:44 Glucose (Glucose Chew Tab) 4-8 Tablets 4 Tabl... UD PRN PO 05/21/17 17:45 06/20/17 17:44 Dextrose (Dextrose 50% 50ML Syringe) 25-50ML OF 50% DW IV FOR... UD PRN IV 05/21/17 17:45 06/20/17 17:44 Glucagon (Glucagon Inj) 1 mg UD PRN SQ 05/21/17 17:45 06/20/17 17:44 Miscellaneous Information (Consult Glycemic Management Pharmacy) 1 ea UD N/A 05/21/17 19:21 06/20/17 19:20 Meclizine HCl (Antivert Tab) 12.5 mg TID PRN PO 05/21/17 18:00 06/20/17 17:59 05/22/17 10:04 12.5 MG Albuterol (Ventolin Hfa Inhaler) 2 puffs Q4 PRN INH 05/21/17 18:15 06/20/17 18:14 Aspirin (Ecotrin Tab) 81 mg QAM PO 05/22/17 09:00 06/21/17 08:59 05/23/17 10:57 81 MG Atorvastatin Calcium (Lipitor Tab) 40 mg DAILY PO 05/22/17 09:00 06/21/17 08:59 05/23/17 10:57 40 MG Clopidogrel Bisulfate (plAVix TAB) 75 mg HS PO 05/21/17 21:00 06/20/17 20:59 05/22/17 20:52 75 MG Docusate Sodium (coLACE CAP) 100 mg BID PO 05/21/17 21:00 06/20/17 20:59 05/23/17 10:57 100 MG Escitalopram Oxalate (Lexapro Tab) 15 mg QAM PO 05/22/17 09:00 06/21/17 08:59 05/23/17 10:57 15 MG Isosorbide Mononitrate (Imdur Ext Rel Tab) 90 mg DAILY PO 05/22/17 09:00 06/21/17 08:59 05/23/17 10:57 90 MG Lisinopril (Zestril Tab) 10 mg QAM PO 05/22/17 09:00 06/21/17 08:59 05/23/17 10:58 10 MG Lisinopril (Zestril Tab) 5 mg QPM PO 05/21/17 21:00 06/20/17 20:59 05/22/17 20:54 5 MG Metoprolol Succinate (Toprol Xl Tab) 50 mg BID PO 05/21/17 21:00 06/20/17 20:59 05/23/17 10:57 50 MG Nitroglycerin (Nitrostat Tab) 0.4 mg UD PRN UT 05/21/17 18:15 06/20/17 18:14 Pantoprazole Sodium (Protonix Tab) 40 mg BID PO 05/21/17 21:00 06/20/17 20:59 05/23/17 10:57 40 MG Senna/Docusate Sodium (Senokot S Tab) 1 tab HS PO 05/21/17 21:00 06/20/17 20:59 05/22/17 20:54 1 TAB Polyethylene (Miralax Powder Packet) 17 gm DAILY PRN PO 05/21/17 18:15 06/20/17 18:14 Promethazine HCl 12.5 mg/Sodium Chloride 50.5 ml @ 204 mls/hr Q6H PRN IV 05/21/17 18:45 06/20/17 18:44 05/22/17 08:41 204 MLS/HR Miscellaneous Information (Order Awaiting Action) 1 ea QS N/A 05/22/17 00:00 06/21/17 00:00 Hydralazine HCl (HydrALAZINE INJ) 10 mg Q6 PRN IV. 05/22/17 01:45 06/21/17 01:44 05/23/17 07:47 10 MG Miconazole Nitrate (Desenex Powder) 1 appln UD PRN EXT 05/22/17 15:30 06/21/17 15:29 Insulin Glargine (Lantus Solostar Pen) 20 units DAILY SC 05/23/17 09:00 06/22/17 08:59 05/23/17 08:46 10 UNITS Amoxicillin/ Clavulanate Potassium (Augmentin Tab) 500 mg BIDM PO 05/23/17 12:00 05/26/17 11:59 05/23/17 12:45 500 MG Sodium Chloride 500 ml @ 50 mls/hr Q10H ONCE IV 05/23/17 13:45 05/23/17 23:44 05/23/17 13:59 50 MLS/HR Impression 61 year old female nausea vomiting dizziness Plan 2. MRI to better define findings on CT brain and define any structure or acute finding. however she has a pacemaker so only option is CT head with and without but kidney function is not optimal 3. treat UTI -may cause confusion 4. medial management per primary team 5. not good historian unclear if she had vertigo. 6. will see her in the office in 3-4 weeks for evaluation of gate Santa Umaña MD or Santa VIVAR 7. repeat CT head in 3-4 months for evaluation of ventricles 8. orthostatic blood pressures ordered I have seen and discussed above patient with Dr Santa Umaña, neurology Pt hx is difficult. It is unclear what the nature of her dizziness is, although it has resolved. The picture seemed to be more of n and abd pain. MRI shows questionable crowding of the vertex gyri, no infarct/ Unable to have MRI bc PPM. No headache, unable to vis optic nerves on exam. No hx of incontinence. Pt baseline mentation/personality not known. I would rec pt see us in office for further eval of gait, sx and will repeat CT head. No signs of increased ICP and hx not consistent with NPH. Certainly if there were new sx consistent with increased ICP, or of ischemia would rec CTA head and neck.Will sign off TOM Umaña MD
[2017-05-23] MEDS: DOCUSATE SODIUM/SENNA 50/8.6MG TAB PO SCH (21:00)
[2017-05-23] MEDS: CLOPIDOGREL BISULFATE 75 MG TAB PO SCH (21:00)
[2017-05-24 03:52] VITALS: BP 117/75; PULSE 78; TEMP 36.8; O2SAT 95
[2017-05-24] MEDS: HEPARIN SOD 5000 UNIT/0.5 ML CARP SQ SCH ×3 (05:45→20:59)
[2017-05-24 06:10] LABS: BASO % 0.3 %; BASO ABS # 0.03 K/uL (0-0.2); COMPLETE YES; EOS % 0.2 %; HEMATOCRIT 35.4 % (37-47); IG% 0.2 %; LYMPH % 47.7 %; MEAN CORPUSCULAR HEMOGLOBIN 28.7 pg (25-34); MEAN CORPUSCULAR HGB CONC 33.1 g/dl (32-36); MEAN PLATELET VOLUME 10.5 fL (7.4-10.4); MONO % 6.1 %; NEUT % 45.5 %; PLATELET COUNT 183 K/uL (130-400); RED BLOOD COUNT 4.07 M/uL (4.2-5.4); WHITE BLOOD COUNT 9.23 K/uL (4.8-10.8)
[2017-05-24 06:49] LABS: BUN/CREATININE RATIO 29.1 (10-20); CALCIUM 9.3 mg/dl (8.5-10.1); CREATININE 0.96 mg/dl (0.60-1.20); POTASSIUM 3.2 mmol/L (3.5-5.1)
[2017-05-24 07:25] VITALS: BP 124/71; PULSE 66; TEMP 36.5; O2SAT 97
[2017-05-24] MEDS: DOCUSATE SODIUM 100 MG CAP PO SCH ×2 (09:16→20:58)
[2017-05-24] MEDS: ESCITALOPRAM OXALATE 10 MG TAB PO SCH (09:16)
[2017-05-24] MEDS: ISOSORBIDE MONONITRATE 30 MG TABCR PO SCH (09:16)
[2017-05-24] MEDS: METOPROLOL SUCC 50MG EXT REL TAB PO SCH ×3 (09:17→21:00)
[2017-05-24] MEDS: PANTOprazole SOD 40 MG TAB PO SCH ×2 (09:17→20:58)
[2017-05-24] MEDS: ASPIRIN 81 MG ECTAB PO SCH (09:17)
[2017-05-24] MEDS: AMOXICILLIN/CLAVULANATE TAB 500 MG TAB PO SCH ×2 (09:17→17:22)
[2017-05-24] MEDS: LISINOPRIL 5 MG TAB PO SCH ×2 (09:17→20:59)
[2017-05-24] MEDS: ATORVASTATIN 40 MG TAB PO SCH (09:18)
[2017-05-24] MEDS: INSULIN ASPART 100 UNITS/ML 3 ML PEN SC SCH ×4 (09:24→20:59)
[2017-05-24] MEDS: INSULIN GLARGINE SOLOSTAR 100 UNITS/ML 3 ML PEN SC SCH (09:24)
[2017-05-24] MEDS ORDERED: POTASSIUM CHLORIDE 10 MEQ TABCR PO ONE (11:00)
--- NOTE | 2017-05-24 11:15 | Progress Note ---
Internal Med Progress Note Date of Service: May 24, 2017. Provider Documentation: SUBJECTIVE: Seen and examined at bedside Sleepy this morning, states couldn't sleep well yesterday as had a nightmare Feels well otherwise Abd pain resolved Denies Nausea, vomiting, chest pain, SOB, dizziness No other complaints OBJECTIVE: Vital Signs-as noted below General Appearance: WD/WN, no apparent distress Head: normocephalic, atraumatic Eyes: normal inspection, PERRL, EOMI, sclerae normal ENT: normal ENT inspection, hearing grossly normal Neck: supple, no JVD, trachea midline Respiratory/Chest: chest non-tender, lungs clear, normal breath sounds, no respiratory distress, no accessory muscle use Cardiovascular: regular rate, rhythm, no edema, no murmur Abdomen/GI: normal bowel sounds, soft, non tender, obese Back: normal inspection Extremities/Musculoskelatal: normal inspection, no pedal edema 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 Patient had multiple admissions with similar symptoms CT ABD: No acute intra-abdominal pathology; Large stool burden in rectum H/O Gastritis in past Refused gastric emptying study as outpatient EGD:Grade A reflux esophagitis Check stool for C.diff if diarrhea reoccurs Appreciate GI Input Gastroparesis diet continue PPI Sepsis/UTI: Urine Culture:E.faecalis Blood cultures: No growth to date Received Cefepime in ED Also received Rocephin Lactate levels normalized Normal Procalcitonin S/P IV fluids Denies urinary symptoms Continue Augmentin Hypertensive Urgency: Patient admits to missing her HTN meds. ? Compliance Stable Continue current HTN meds monitor Hypokalemia: Replace and monitor Dizziness/Vertigo: Likely secondary to dehydration CT head suggestive of possible NPH Antivert PRN Appreciate Neurology Input Could not get MRI brain secondary to pacemaker incompatibility Needs follow up with Neurology in 3-4 weeks as outpatient Adrenal Incidentaloma CT shows Left adrenal mass which increased in size since 2011 Needs work up as outpatient Previously evaluated by surgery: Needs to go to tertiary center if needs to be removed CKD III: Cr at baseline Monitor renal function IDDM: Last Hb A1C: 7.4 on 01/03/17 A1c:7.6 ISS, Lantus Diabetic diet Pharmacy Glycemic control consult CAD s/p CABG and PCI continue current cardiac medications Denies chest pain H/O V.Fib s/p ICD Stable continue home meds QTC Prolongation: Avoid QTC prolonging meds repeat EKG: QTC normalized HLP: continue statins H/O asthma: no signs of exacerbation GERD: continue PPI DVT px SQ heparin Code Status Full Code Disposition: Plan to discharge to SNF as able Follow up with for Primary Care on 05/27/17 at 12:45pm Follow up with Neurologist in 3-4 weeks as advised PROCEDURES: EGD: Impression: - LA Grade A reflux esophagitis. Biopsied. - Normal stomach. Biopsied. - Normal examined duodenum. Biopsied. Recommendation: - Await pathology results. - [facility] to [facility] for possible discharge same day. - Gastroparesis diet. - Use Prilosec (omeprazole) 20 mg PO daily. Vital Signs: Date Time Temp Pulse Resp B/P (MAP) Pulse Ox O2 Delivery O2 Flow Rate FiO2 05/24/17 08:00 Room Air 05/24/17 07:25 36.5 66 16 124/71 (88) 97 Room Air 05/24/17 04:00 Room Air 05/24/17 03:52 36.8 78 16 117/75 (89) 95 Room Air 05/24/17 00:00 Room Air 05/23/17 23:44 36.7 68 18 95/59 (71) 94 Room Air 05/23/17 21:16 70 105/66 (79) 05/23/17 20:00 95 Room Air 05/23/17 19:32 37.0 69 18 108/65 (79) 95 Room Air 05/23/17 16:00 95 Room Air 05/23/17 15:09 36.7 69 18 121/74 (90) 95 05/23/17 12:26 102/64 (77) 05/23/17 12:13 36.6 78 18 80/54 (63) 94 84/49 (61) 05/23/17 12:00 96 Room Air Lab Results: Results Past 24 Hours Test 05/23/17 11:01 05/23/17 12:24 05/23/17 16:30 05/23/17 20:17 Range/Units Bedside Glucose 191 191 171 70-90 mg/dl White Blood Count 12.97 4.8-10.8 K/uL Red Blood Count 4.56 4.2-5.4 M/uL Hemoglobin 13.0 12.0-16.0 g/dL Hematocrit 39.7 37-47 % Mean Corpuscular Volume 87.1 80-100 fL Mean Corpuscular Hemoglobin 28.5 25-34 pg Mean Corpuscular Hemoglobin Concent 32.7 32-36 g/dl Platelet Count 219 130-400 K/uL Mean Platelet Volume 10.5 7.4-10.4 fL Neutrophils (%) (Auto) 59.3 % Lymphocytes (%) (Auto) 31.7 % Monocytes (%) (Auto) 8.5 % Eosinophils (%) (Auto) 0.0 % Basophils (%) (Auto) 0.2 % Neutrophils # (Auto) 7.69 1.4-6.5 K/uL Lymphocytes # (Auto) 4.11 1.2-3.4 K/uL Monocytes # (Auto) 1.10 0.11-0.59 K/uL Eosinophils # (Auto) 0.00 0-0.5 K/uL Basophils # (Auto) 0.03 0-0.2 K/uL RDW Standard Deviation 41.4 36.4-46.3 fL RDW Coefficient of Variation 12.9 11.5-14.5 % Immature Granulocyte % (Auto) 0.3 % Immature Granulocyte # (Auto) 0.04 0.00-0.02 K/uL Sodium Level 138 136-145 mmol/L Potassium Level 3.5 3.5-5.1 mmol/L Chloride Level 101 98-107 mmol/L Carbon Dioxide Level 30 21-32 mmol/L Anion Gap 7.0 3-11 mmol/L Blood Urea Nitrogen 25 7-18 mg/dl Creatinine 1.38 0.60-1.20 mg/dl Est Creatinine Clear Calc Drug Dose 42.2 ml/min Estimated GFR () 47.0 Estimated GFR (Non- 40.6 BUN/Creatinine Ratio 18.3 10-20 Random Glucose 262 70-99 mg/dl Calcium Level 9.1 8.5-10.1 mg/dl Chemistry Specimen Hemolysis Test 05/24/17 05:40 05/24/17 07:34 Range/Units White Blood Count 9.23 4.8-10.8 K/uL Red Blood Count 4.07 4.2-5.4 M/uL Hemoglobin 11.7 12.0-16.0 g/dL Hematocrit 35.4 37-47 % Mean Corpuscular Volume 87.0 80-100 fL Mean Corpuscular Hemoglobin 28.7 25-34 pg Mean Corpuscular Hemoglobin Concent 33.1 32-36 g/dl Platelet Count 183 130-400 K/uL Mean Platelet Volume 10.5 7.4-10.4 fL Neutrophils (%) (Auto) 45.5 % Lymphocytes (%) (Auto) 47.7 % Monocytes (%) (Auto) 6.1 % Eosinophils (%) (Auto) 0.2 % Basophils (%) (Auto) 0.3 % Neutrophils # (Auto) 4.20 1.4-6.5 K/uL Lymphocytes # (Auto) 4.40 1.2-3.4 K/uL Monocytes # (Auto) 0.56 0.11-0.59 K/uL Eosinophils # (Auto) 0.02 0-0.5 K/uL Basophils # (Auto) 0.03 0-0.2 K/uL RDW Standard Deviation 41.4 36.4-46.3 fL RDW Coefficient of Variation 12.9 11.5-14.5 % Immature Granulocyte % (Auto) 0.2 % Immature Granulocyte # (Auto) 0.02 0.00-0.02 K/uL Sodium Level 141 136-145 mmol/L Potassium Level 3.2 3.5-5.1 mmol/L Chloride Level 104 98-107 mmol/L Carbon Dioxide Level 30 21-32 mmol/L Anion Gap 7.0 3-11 mmol/L Blood Urea Nitrogen 28 7-18 mg/dl Creatinine 0.96 0.60-1.20 mg/dl Est Creatinine Clear Calc Drug Dose 60.2 ml/min Estimated GFR () 72.9 Estimated GFR (Non- 62.9 BUN/Creatinine Ratio 29.1 10-20 Random Glucose 135 70-99 mg/dl Calcium Level 9.3 8.5-10.1 mg/dl Bedside Glucose 128 70-90 mg/dl
--- NOTE | 2017-05-24 12:00 | Gastroenterology Progress Note ---
Progress Note Date of Service: May 24, 2017 Subjective Pt evaluation today including: conversation w/ patient, physical exam, review of studies, review of inpatient medication list Pt feels well, denies any abd pain, n/v, ate regular consistency breakfast well. Review of Systems Constitutional: No fever, No chills Respiratory: No cough, No shortness of breath Cardiac: No chest pain Abdomen: No pain, No nausea, No vomiting Medications Current Inpatient Medications Medications (Trade) Dose Ordered Sig/Tera Route Start Time Stop Time Status Last Admin Dose Admin Ioversol (Optiray 320) 125 ml UD PRN IV 05/21/17 14:30 05/25/17 14:29 Heparin Sodium (Porcine) (Heparin Sq 5000 Unit/0.5ml) 5,000 unit Q8H SQ 05/22/17 06:00 06/21/17 05:59 05/24/17 05:45 5,000 UNIT Acetaminophen (Tylenol Tab) 650 mg Q4H PRN PO 05/21/17 17:45 06/20/17 17:44 05/23/17 14:17 650 MG Al Hydrox/Mg Hydrox/Simethicone (Maalox Max Susp) 15 ml Q4H PRN PO 05/21/17 17:45 06/20/17 17:44 05/23/17 14:17 15 ML Insulin Aspart (novoLOG ASPART) SLIDING SCALE If C... ACHS SC 05/21/17 21:00 06/20/17 20:59 05/24/17 09:24 4 UNITS Glucose (Glucose 40% Gel) 15-30 GRAMS 15 GRAMS... UD PRN PO 05/21/17 17:45 06/20/17 17:44 Glucose (Glucose Chew Tab) 4-8 Tablets 4 Tabl... UD PRN PO 05/21/17 17:45 06/20/17 17:44 Dextrose (Dextrose 50% 50ML Syringe) 25-50ML OF 50% DW IV FOR... UD PRN IV 05/21/17 17:45 06/20/17 17:44 Glucagon (Glucagon Inj) 1 mg UD PRN SQ 05/21/17 17:45 06/20/17 17:44 Miscellaneous Information (Consult Glycemic Management Pharmacy) 1 ea UD N/A 05/21/17 19:21 06/20/17 19:20 Meclizine HCl (Antivert Tab) 12.5 mg TID PRN PO 05/21/17 18:00 06/20/17 17:59 05/22/17 10:04 12.5 MG Albuterol (Ventolin Hfa Inhaler) 2 puffs Q4 PRN INH 05/21/17 18:15 06/20/17 18:14 Aspirin (Ecotrin Tab) 81 mg QAM PO 05/22/17 09:00 06/21/17 08:59 05/24/17 09:17 81 MG Atorvastatin Calcium (Lipitor Tab) 40 mg DAILY PO 05/22/17 09:00 06/21/17 08:59 05/24/17 09:18 40 MG Clopidogrel Bisulfate (plAVix TAB) 75 mg HS PO 05/21/17 21:00 06/20/17 20:59 05/22/17 20:52 75 MG Docusate Sodium (coLACE CAP) 100 mg BID PO 05/21/17 21:00 06/20/17 20:59 05/24/17 09:16 100 MG Escitalopram Oxalate (Lexapro Tab) 15 mg QAM PO 05/22/17 09:00 06/21/17 08:59 05/24/17 09:16 15 MG Isosorbide Mononitrate (Imdur Ext Rel Tab) 90 mg DAILY PO 05/22/17 09:00 06/21/17 08:59 05/24/17 09:16 90 MG Lisinopril (Zestril Tab) 10 mg QAM PO 05/22/17 09:00 06/21/17 08:59 05/24/17 09:17 10 MG Lisinopril (Zestril Tab) 5 mg QPM PO 05/21/17 21:00 06/20/17 20:59 05/22/17 20:54 5 MG Metoprolol Succinate (Toprol Xl Tab) 50 mg BID PO 05/21/17 21:00 06/20/17 20:59 05/24/17 09:17 50 MG Nitroglycerin (Nitrostat Tab) 0.4 mg UD PRN UT 05/21/17 18:15 06/20/17 18:14 Pantoprazole Sodium (Protonix Tab) 40 mg BID PO 05/21/17 21:00 06/20/17 20:59 05/24/17 09:17 40 MG Senna/Docusate Sodium (Senokot S Tab) 1 tab HS PO 05/21/17 21:00 06/20/17 20:59 05/22/17 20:54 1 TAB Polyethylene (Miralax Powder Packet) 17 gm DAILY PRN PO 05/21/17 18:15 06/20/17 18:14 Promethazine HCl 12.5 mg/Sodium Chloride 50.5 ml @ 204 mls/hr Q6H PRN IV 05/21/17 18:45 06/20/17 18:44 05/22/17 08:41 204 MLS/HR Miscellaneous Information (Order Awaiting Action) 1 ea QS N/A 05/22/17 00:00 06/21/17 00:00 Hydralazine HCl (HydrALAZINE INJ) 10 mg Q6 PRN IV. 05/22/17 01:45 06/21/17 01:44 05/23/17 07:47 10 MG Miconazole Nitrate (Desenex Powder) 1 appln UD PRN EXT 05/22/17 15:30 06/21/17 15:29 Insulin Glargine (Lantus Solostar Pen) 20 units DAILY SC 05/23/17 09:00 06/22/17 08:59 05/24/17 09:24 20 UNITS Amoxicillin/ Clavulanate Potassium (Augmentin Tab) 500 mg BIDM PO 05/23/17 12:00 05/26/17 11:59 05/24/17 09:17 500 MG Objective Vital Signs Date Time Temp Pulse Resp B/P (MAP) Pulse Ox O2 Delivery O2 Flow Rate FiO2 05/24/17 08:00 Room Air 05/24/17 07:25 36.5 66 16 124/71 (88) 97 Room Air 05/24/17 04:00 Room Air 05/24/17 03:52 36.8 78 16 117/75 (89) 95 Room Air 05/24/17 00:00 Room Air 05/23/17 23:44 36.7 68 18 95/59 (71) 94 Room Air 05/23/17 21:16 70 105/66 (79) 05/23/17 20:00 95 Room Air 05/23/17 19:32 37.0 69 18 108/65 (79) 95 Room Air 05/23/17 16:00 95 Room Air 05/23/17 15:09 36.7 69 18 121/74 (90) 95 05/23/17 12:26 102/64 (77) 05/23/17 12:13 36.6 78 18 80/54 (63) 94 84/49 (61) 05/23/17 12:00 96 Room Air Physical Exam General Appearance: WD/WN, no apparent distress Eyes: normal inspection, PERRL, EOMI Neck: supple, no JVD, trachea midline Respiratory/Chest: normal breath sounds, no respiratory distress, no accessory muscle use Cardiovascular: regular rate, rhythm, no gallop, no murmur Abdomen: normal bowel sounds, non tender, soft Extremities: normal inspection, no pedal edema, no calf tenderness Neurologic/Psych: alert, normal mood/affect, oriented x 3 Skin: normal color, no jaundice, no rash Laboratory Results Last 24 Hours Test 05/23/17 12:24 05/23/17 16:30 05/23/17 20:17 05/24/17 05:40 White Blood Count 12.97 K/uL 9.23 K/uL Red Blood Count 4.56 M/uL 4.07 M/uL Hemoglobin 13.0 g/dL 11.7 g/dL Hematocrit 39.7 % 35.4 % Mean Corpuscular Volume 87.1 fL 87.0 fL Mean Corpuscular Hemoglobin 28.5 pg 28.7 pg Mean Corpuscular Hemoglobin Concent 32.7 g/dl 33.1 g/dl Platelet Count 219 K/uL 183 K/uL Mean Platelet Volume 10.5 fL 10.5 fL Neutrophils (%) (Auto) 59.3 % 45.5 % Lymphocytes (%) (Auto) 31.7 % 47.7 % Monocytes (%) (Auto) 8.5 % 6.1 % Eosinophils (%) (Auto) 0.0 % 0.2 % Basophils (%) (Auto) 0.2 % 0.3 % Neutrophils # (Auto) 7.69 K/uL 4.20 K/uL Lymphocytes # (Auto) 4.11 K/uL 4.40 K/uL Monocytes # (Auto) 1.10 K/uL 0.56 K/uL Eosinophils # (Auto) 0.00 K/uL 0.02 K/uL Basophils # (Auto) 0.03 K/uL 0.03 K/uL RDW Standard Deviation 41.4 fL 41.4 fL RDW Coefficient of Variation 12.9 % 12.9 % Immature Granulocyte % (Auto) 0.3 % 0.2 % Immature Granulocyte # (Auto) 0.04 K/uL 0.02 K/uL Sodium Level 138 mmol/L 141 mmol/L Potassium Level 3.5 mmol/L 3.2 mmol/L Chloride Level 101 mmol/L 104 mmol/L Carbon Dioxide Level 30 mmol/L 30 mmol/L Anion Gap 7.0 mmol/L 7.0 mmol/L Blood Urea Nitrogen 25 mg/dl 28 mg/dl Creatinine 1.38 mg/dl 0.96 mg/dl Est Creatinine Clear Calc Drug Dose 42.2 ml/min 60.2 ml/min Estimated GFR () 47.0 72.9 Estimated GFR (Non- 40.6 62.9 BUN/Creatinine Ratio 18.3 29.1 Random Glucose 262 mg/dl 135 mg/dl Calcium Level 9.1 mg/dl 9.3 mg/dl Chemistry Specimen Hemolysis Bedside Glucose 191 mg/dl 171 mg/dl Test 05/24/17 07:34 Bedside Glucose 128 mg/dl Assessment and Plan Impression Patient is a 61 year old female w worsening nausea, vomiting, epigastric abd pain (postprandial). She has had this symptoms for months, initially doing better on Compazine. Last EGD in 2010 showed some gastritis w/o Hpylori. Was scheduled for repeat EGD yesterday but came to ED and admitted. She was also complaining for diarrhea but no BMs since admission. CT showed large stool in rectum, may be having overflow diarrhea from constipation. EGD done 05/23/17 showed LA grade A reflux esophagitis, otherwise normal. Bx pending. She is not having anymore abd pain, n/v, tolerating a regular diet now. - Certainly n/v, epigastric pain symptoms may be related to diabetic gastroparesis. Was offered repeat gastric emptying study in outpt setting before but she had declined due to test requiring her to ingest eggs/oatmeal. She should follow a gastroparesis diet. - No vomiting since admitted thus will continue current antiemetics. But may add short term Reglan 5mg IV BID if continued N/V. - Plan for EGD eval on 05/23 -> LA grade A reflux esophagitis, normal otherwise. Bx pending. - GI will sign off; call if new questions/concerns arise. I have seen, examined and agree with the plan as outlined by PRITESH Loo as above. -exam reveals soft abd -Nausea has improved -Gastroparetic diet Juan Luis Contreras M.D.
[2017-05-24 15:30] VITALS: BP 110/60; PULSE 68; TEMP 36.6; O2SAT 97
[2017-05-24] MEDS ORDERED: AMOX1TAB42 PO (16:45)
--- NOTE | 2017-05-24 16:49 | Discharge Instructions ---
Discharge Instructions Date of Service May 24, 2017. Admission Reason for Admission: Dizziness, Vomiting Discharge Discharge Diagnosis / Problem: Diabeteic Gastroparesis, Hypertensive Urgency, UTI, Possible NPH Discharge Goals Goal(s): Decrease discomfort, Improve function Activity Recommendations Activity Limitations: resume your previous activity Exercise/Sports Limitations: as tolerated . Instructions / Follow-Up Instructions / Follow-Up Follow up with for Primary Care on 05/27/17 at 12:45pm Follow up with Neurologist in 3-4 weeks as advised Follow up with your sanitation inspector as needed Complete the antibiotic course as prescribed Discuss with your doctor regarding work up for Left adrenal mass noticed on CT scan as outpatient Seek immediate medical attention if your symptoms reoccur or worsen Current Hospital Diet Patient's current hospital diet: AHA Diet (Heart Healthy), Diabetes Type 2 Diet Discharge Diet Recommended Diet: AHA Diet (Heart Healthy), Diabetes Type 2 Diet ( Gastroparesis diet) Procedures Procedures Performed: EGD with biopsy Pending Studies Studies pending at discharge: no Laboratory Results Hemoglobin A1c Test 05/21/17 12:24 Range/Units Estimated Average Glucose 171 mg/dl Hemoglobin A1c 7.6 H 4.5-5.6 % Medical Emergencies . Who to Call and When: Medical Emergencies: If at any time you feel your situation is an emergency, please call 911 immediately. . Non-Emergent Contact Non-Emergency issues call your: Primary Care Provider, Neurologist Call Non-Emergent contact if: you have a fever, your pain is not controlled, your pain is worsening, your pain is unusual for you, your pain is concerning you, you have any medication questions Seek immediate medical attention if your symptoms reoccur or worsen . . "Provider Documentation" section prepared by Roque Fernandez. . VTE Core Measure Inpt VTE Proph given/why not?: Unfractionated heparin SQ, SCD's
--- NOTE | 2017-05-24 16:53 | Discharge Summary ---
Discharge Summary Date of Service May 24, 2017. Discharge Summary Admission Date: May 21, 2017 at 17:37 Discharge Date: May 26, 2017 [facility] Principal Diagnosis: Diabetic Gastroparesis, Hypertensive Urgency, UTI, Possible NPH Procedures: CT Head: 1. No acute intracranial pathology. 2. Gyral crowding and relative sulcal effacement at the vertex combined with a slightly low callosal angle raises suspicion for normal pressure hydrocephalus. Correlate clinically. CT ABD: 1. No acute intra-abdominal pathology. 2. 2.7 cm left adrenal nodule, indeterminate and slowly increasing in size since 2013. This was indeterminate on prior dedicated adrenal MR from 2011, when this lesion measured 1.3 cm. 3. Bilateral nephrolithiasis. EGD: Impression: - LA Grade A reflux esophagitis. Biopsied. - Normal stomach. Biopsied. - Normal examined duodenum. Biopsied. Recommendation: - Await pathology results. - [facility] same [facility]. - Gastroparesis diet. - Use Prilosec (omeprazole) 20 mg PO daily. Consultations: Neurology, GI Pending Studies/Follow-Up: Follow up with for Primary Care on 05/27/17 at 12:45pm Follow up with Neurologist in 3-4 weeks as advised Follow up with your general repairer as needed Complete the antibiotic course as prescribed Discuss with your doctor regarding work up for Left adrenal mass noticed on CT scan as outpatient Seek immediate medical attention if your symptoms reoccur or worsen Medication Reconciliation New Medications: Amoxicillin & Pot Clavulanate (Amoxicillin/Clavulanate P) 1 Tab Tab 500 MG PO BIDM for 2 Days, #4 TAB Continued Medications: Albuterol Hfa (Ventolin Hfa) 200 Puffs/02528 Mcg Aers 2 PUFFS INH Q4 PRN for Wheezing, #1 INHALER Aspirin (Aspirin Ec) 81 Mg Tab 81 MG PO QAM Atorvastatin (Atorvastatin Calcium) 40 Mg Tab 40 MG PO DAILY Clopidogrel Bisulfate (Plavix) 75 Mg Tab 75 MG PO HS Cyclosporine (Ophth) (Restasis) 0.05 % Emu 1 DROP OP BID, BTL Docusate Sodium (Docusate Sodium) 100 Mg Cap 100 MG PO BID Escitalopram Oxalate (Lexapro) 10 Mg Tab 15 MG PO QAM, TAB Insulin Aspart (Novolog Flexpen) 100 Units/Ml Inj 33 UNITS SC AC DO NOT USE IF SHE DOESN'T EAT Isosorbide Mononitrate Ext Rel (Imdur Ext Rel) 30 Mg Tabcr 90 MG PO DAILY, #90 Ketoconazole (Topical) (Ketoconazole) 2 % Sha 1 APPLN TOP DAILY for 30 Days, #120 ML 1 Refill Lisinopril (Lisinopril) 5 Mg Tab 10 MG PO QAM Lisinopril (Prinivil) 5 Mg Tab 5 MG PO QPM, TAB Metoprolol Succinate (Metoprolol Succinate ER) 50 Mg Tabcr 50 MG PO BID Nitroglycerin (Nitrostat) 0.4 Mg Tab 0.4 MG UT UD PRN for Chest Pain, 0 Refills Pantoprazole (Protonix) 40 Mg Tab 40 MG PO BID, 0 Refills Polyethylene Glycol 3350 (Miralax) 1 Pow Pow 17 GM PO DAILY, #255 GM Prochlorperazine Maleate (Prochlorperazine Maleate) 5 Mg Tab 5 MG PO Q6 PRN for Nausea Sennosides-Docusate Sodium (Senna Plus) 1 Tab Tab 1 TAB PO HS Admission Information HPI (per Admitting provider): Patient is a 61 yr female with PMH of chronic diastolic heart failure, CAD S/P CABG, HTN, HLP, asthma, past tobacco abuse, mood disorder, DM II, H/O VT/VF S/P ICD, CKD III, GERD, Chronic constipation, DDD, multiple admission with GI symptoms which is presumed to be diabetic gastroparesis and other problems presents with history of nausea, vomiting, dizziness, generalized weakness, abdominal pain and loose BMs. Patient states she started had multiple episodes of nausea, vomiting since yesterday and denies any blood in vomitus. Reports chronic epigastric abdominal pain since many months. Reports abdominal pain is intermittent, sharp, non radiating, sharp, increases with eating, associated with poor appetite and denies any blood in stools.Reports having loose BMs and fever, chills since today. Also reports having dizziness since 2 days which she describes as room spinning which worsens with head movement and decreases with sitting. Denies headache, change in vision, head trauma, hearing loss, fall. Presented with uncontrolled Hypertension and admits that she missed her medications today. Uses walker/wheelchair at baseline. Denies any history of chest pain, SOB, palpitations, cough, wheezing, slurred speech, facial deformity , dysuria. Physical Exam (per Admitting): General Appearance: WD/WN, no apparent distress Head: normocephalic, atraumatic Eyes: normal inspection, PERRL, EOMI, sclerae normal ENT: normal ENT inspection, hearing grossly normal Neck: supple, no JVD, trachea midline Respiratory/Chest: chest non-tender, lungs clear, normal breath sounds, no respiratory distress, no accessory muscle use Cardiovascular: regular rate, rhythm, no edema, no murmur Abdomen/GI: normal bowel sounds, soft, + pertinent finding (Generalized abd tender, No guarding, Obese) Back: normal inspection Extremities/Musculoskelatal: normal inspection, no pedal edema Neurologic/Psych: 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 II-XII nml as tested, no motor/sensory deficits, alert , normal mood/affect, oriented x 3 Skin: normal color, warm/dry Hospital Course Nausea, Vomiting, Generalized Abdominal Pain: Resolved Possibly Gastroparesis likely secondary to FDC IDDM Patient had multiple admissions with similar symptoms CT ABD: No acute intra-abdominal pathology; Large stool burden in rectum H/O Gastritis in past Refused gastric emptying study as outpatient EGD:Grade A reflux esophagitis Check stool for C.diff if diarrhea reoccurs Appreciate GI Input Gastroparesis diet continue PPI Had dark colored BM yon 11/10 likely old blood but resolved Monitor Hb: stable resume ASA, plavix Sepsis/UTI: Urine Culture:E.faecalis Blood cultures: No growth to date Received Cefepime in ED Also received Rocephin Lactate levels normalized Normal Procalcitonin S/P IV fluids Denies urinary symptoms Continue Augmentin Hypertensive Urgency: Patient admits to missing her HTN meds. ? 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 Needs follow up with Neurology in 3-4 weeks as outpatient Adrenal Incidentaloma CT shows Left adrenal mass which increased in size since 2011 Needs work up as outpatient Previously evaluated by surgery: Needs to go to tertiary center if needs to be removed CKD III: Cr at baseline Monitor renal function IDDM: Last Hb A1C: 7.4 on 01/03/17 A1c:7.6 ISS, Lantus Diabetic diet Pharmacy Glycemic control consult CAD s/p CABG and PCI continue current cardiac medications Denies chest pain H/O V.Fib s/p ICD Stable continue home meds QTC Prolongation: Avoid QTC prolonging meds repeat EKG: QTC normalized HLP: continue statins H/O asthma: no signs of exacerbation GERD: continue PPI DVT px SCDs for now Code Status Full Code Disposition: Plan to discharge to SNF today Follow up with for Primary Care on 05/27/17 at 12:45pm Follow up with Neurologist in 3-4 weeks as advised PROCEDURES: EGD: Impression: - LA Grade A reflux esophagitis. Biopsied. - Normal stomach. Biopsied. - Normal examined duodenum. Biopsied. Recommendation: - Await pathology results. - [facility] for possible [facility] same day. - Gastroparesis diet. - Use Prilosec (omeprazole) 20 mg PO daily. Total time spent on discharge = 36 minutes This includes examination of the patient, discharge planning, medication reconciliation, and communication with other providers. Discharge Instructions Discharge Instructions Date of Service May 24, 2017. Admission Reason for Admission: Dizziness, Vomiting Discharge Discharge Diagnosis / Problem: Diabeteic Gastroparesis, Hypertensive Urgency, UTI, Possible NPH Discharge Goals Goal(s): Decrease discomfort, Improve function Activity Recommendations Activity Limitations: resume your previous activity Exercise/Sports Limitations: as tolerated . Instructions / Follow-Up Instructions / Follow-Up Follow up with for Primary Care on 05/27/17 at 12:45pm Follow up with Neurologist in 3-4 weeks as advised Follow up with your general repairer as needed Complete the antibiotic course as prescribed Discuss with your doctor regarding work up for Left adrenal mass noticed on CT scan as outpatient Seek immediate medical attention if your symptoms reoccur or worsen Current Hospital Diet Patient's current hospital diet: AHA Diet (Heart Healthy), Diabetes Type 2 Diet Discharge Diet Recommended Diet: AHA Diet (Heart Healthy), Diabetes Type 2 Diet ( Gastroparesis diet) Procedures Procedures Performed: EGD with biopsy Pending Studies Studies pending at discharge: no Laboratory Results Hemoglobin A1c Test 05/21/17 12:24 Range/Units Estimated Average Glucose 171 mg/dl Hemoglobin A1c 7.6 H 4.5-5.6 % Medical Emergencies . Who to Call and When: Medical Emergencies: If at any time you feel your situation is an emergency, please call 911 immediately. . Non-Emergent Contact Non-Emergency issues call your: Primary Care Provider, Neurologist Call Non-Emergent contact if: you have a fever, your pain is not controlled, your pain is worsening, your pain is unusual for you, your pain is concerning you, you have any medication questions Seek immediate medical attention if your symptoms reoccur or worsen . . "Provider Documentation" section prepared by Roque Fernandez. . VTE Core Measure Inpt VTE Proph given/why not?: Unfractionated heparin SQ, SCD's
--- NOTE | 2017-05-24 18:15 | Progress Note ---
Progress Note Date of Service May 24, 2017. Progress Note Patient had a black tarry bowel movement prior to being discharged. Will hold off on discharge. Monior Hb. Plan to discharge in AM if stable.
[2017-05-24 19:48] LABS: HEMATOCRIT 31.1 % (37-47)
[2017-05-24 19:54] VITALS: BP 96/62; PULSE 58; TEMP 36.9; O2SAT 99
[2017-05-24] MEDS: CLOPIDOGREL BISULFATE 75 MG TAB PO SCH (20:58)
[2017-05-24] MEDS: DOCUSATE SODIUM/SENNA 50/8.6MG TAB PO SCH (20:59)
[2017-05-24 23:04] VITALS: BP 136/79; PULSE 70; TEMP 36.6; O2SAT 93
[2017-05-25] MEDS: ACETAMINOPHEN 325 MG TAB PO PRN (03:13)
[2017-05-25 04:03] VITALS: BP 123/68; PULSE 68; TEMP 36.6; O2SAT 95
[2017-05-25] MEDS: HEPARIN SOD 5000 UNIT/0.5 ML CARP SQ SCH (05:59)
[2017-05-25 07:50] VITALS: BP 95/56; PULSE 60; TEMP 36.9; O2SAT 93
[2017-05-25 08:20] LABS: HEMATOCRIT 31.9 % (37-47); MEAN CELL VOLUME 86.9 fL (80-100); MEAN CORPUSCULAR HEMOGLOBIN 28.3 pg (25-34); MEAN CORPUSCULAR HGB CONC 32.6 g/dl (32-36); MEAN PLATELET VOLUME 9.7 fL (7.4-10.4); PLATELET COUNT 159 K/uL (130-400); RED BLOOD COUNT 3.67 M/uL (4.2-5.4); WHITE BLOOD COUNT 9.57 K/uL (4.8-10.8)
[2017-05-25] MEDS: DOCUSATE SODIUM 100 MG CAP PO SCH ×2 (08:29→20:45)
[2017-05-25] MEDS: LISINOPRIL 5 MG TAB PO SCH ×2 (08:30→20:48)
[2017-05-25] MEDS: ISOSORBIDE MONONITRATE 30 MG TABCR PO SCH (08:30)
[2017-05-25] MEDS: METOPROLOL SUCC 50MG EXT REL TAB PO SCH ×2 (08:30→20:49)
[2017-05-25 09:07] LABS: BUN/CREATININE RATIO 29.2 (10-20); CALCIUM 9.1 mg/dl (8.5-10.1); CREATININE 1.05 mg/dl (0.60-1.20); MAGNESIUM 1.9 mg/dl (1.8-2.4); POTASSIUM 3.7 mmol/L (3.5-5.1)
[2017-05-25] MEDS: ASPIRIN 81 MG ECTAB PO SCH (09:32)
[2017-05-25] MEDS: ATORVASTATIN 40 MG TAB PO SCH (09:33)
[2017-05-25] MEDS: ESCITALOPRAM OXALATE 10 MG TAB PO SCH (09:33)
[2017-05-25] MEDS: AMOXICILLIN/CLAVULANATE TAB 500 MG TAB PO SCH ×2 (09:34→17:49)
[2017-05-25] MEDS: PANTOprazole SOD 40 MG TAB PO SCH ×2 (09:34→20:45)
[2017-05-25] MEDS: INSULIN ASPART 100 UNITS/ML 3 ML PEN SC SCH ×4 (09:38→20:46)
[2017-05-25] MEDS: INSULIN GLARGINE SOLOSTAR 100 UNITS/ML 3 ML PEN SC SCH (09:39)
--- NOTE | 2017-05-25 11:38 | Progress Note ---
Internal Med Progress Note Date of Service: May 25, 2017. Provider Documentation: SUBJECTIVE: Seen and examined at bedside Feels well today, more alert, awake Brown colored BM Denies chest pain, SOB, abd pain,Nausea, vomiting, dizziness No other complaints No acute bleeding issues OBJECTIVE: Vital Signs-as noted below General Appearance: WD/WN, no apparent distress Head: normocephalic, atraumatic Eyes: normal inspection, PERRL, EOMI, sclerae normal ENT: normal ENT inspection, hearing grossly normal Neck: supple, no JVD, trachea midline Respiratory/Chest: chest non-tender, lungs clear, normal breath sounds, no respiratory distress, no accessory muscle use Cardiovascular: regular rate, rhythm, no edema, no murmur Abdomen/GI: normal bowel sounds, soft, non tender, obese Back: normal inspection Extremities/Musculoskelatal: normal inspection, no pedal edema Neurologic/Psych: clinical safety specialist II-XII nml as tested, no motor/sensory deficits, alert, normal mood/affect, oriented x 3 Skin: normal color, warm/dry Lab data as noted below. 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 IDDM Patient had multiple admissions with similar symptoms CT ABD: No acute intra-abdominal pathology; Large stool burden in rectum H/O Gastritis in past Refused gastric emptying study as outpatient EGD:Grade A reflux esophagitis Check stool for C.diff if diarrhea reoccurs Appreciate GI Input Gastroparesis diet continue PPI Had dark colored BM yesterday likely old blood Monitor Hb Hold ASA, plavix for tamika Abdominal pain resolved Sepsis/UTI: Urine Culture:E.faecalis Blood cultures: No growth to date Received Cefepime in ED Also received Rocephin Lactate levels normalized Normal Procalcitonin S/P IV fluids Denies urinary symptoms Continue Augmentin Hypertensive Urgency: Patient admits to missing her HTN meds. ? Compliance Stable Continue current HTN meds monitor Hypokalemia: Replace and monitor Dizziness/Vertigo: Resolved Likely secondary to dehydration CT head suggestive of possible NPH Antivert PRN Appreciate Neurology Input Could not get MRI brain secondary to pacemaker incompatibility Needs follow up with Neurology in 3-4 weeks as outpatient Adrenal Incidentaloma CT shows Left adrenal mass which increased in size since 2011 Needs work up as outpatient Previously evaluated by surgery: Needs to go to tertiary center if needs to be removed CKD III: Cr at baseline Monitor renal function IDDM: Last Hb A1C: 7.4 on 01/03/17 A1c:7.6 ISS, Lantus Diabetic diet Pharmacy Glycemic control consult CAD s/p CABG and PCI continue current cardiac medications Denies chest pain H/O V.Fib s/p ICD Stable continue home meds QTC Prolongation: Avoid QTC prolonging meds repeat EKG: QTC normalized HLP: continue statins H/O asthma: no signs of exacerbation GERD: continue PPI DVT px SCDs for now Code Status Full Code Disposition: Plan to discharge to SNF tomorrow if stable Follow up with for Primary Care on 05/27/17 at 12:45pm Follow up with Neurologist in 3-4 weeks as advised PROCEDURES: EGD: Impression: - LA Grade A reflux esophagitis. Biopsied. - Normal stomach. Biopsied. - Normal examined duodenum. Biopsied. Recommendation: - Await pathology results. - [facility] same day. - Gastroparesis diet. - Use Prilosec (omeprazole) 20 mg PO daily. Vital Signs: Date Time Temp Pulse Resp B/P (MAP) Pulse Ox O2 Delivery O2 Flow Rate FiO2 05/25/17 08:00 Room Air 05/25/17 07:50 36.9 60 16 95/56 (69) 93 Room Air 05/25/17 04:17 Room Air 05/25/17 04:03 36.6 68 16 123/68 (86) 95 Room Air 05/25/17 00:07 Room Air 05/24/17 23:04 36.6 70 18 136/79 (98) 93 Room Air 05/24/17 20:27 Room Air 05/24/17 19:54 36.9 58 17 96/62 (73) 99 Room Air 05/24/17 16:00 Room Air 05/24/17 15:30 36.6 68 16 110/60 (77) 97 Room Air 05/24/17 14:49 36.5 66 16 97 Room Air 05/24/17 12:00 Room Air Lab Results: Results Past 24 Hours Test 05/24/17 11:41 05/24/17 17:01 05/24/17 19:40 05/24/17 20:20 Range/Units Bedside Glucose 217 164 115 70-90 mg/dl Hemoglobin 10.1 12.0-16.0 g/dL Hematocrit 31.1 37-47 % Test 05/25/17 07:26 05/25/17 08:12 Range/Units Bedside Glucose 114 70-90 mg/dl White Blood Count 9.57 4.8-10.8 K/uL Red Blood Count 3.67 4.2-5.4 M/uL Hemoglobin 10.4 12.0-16.0 g/dL Hematocrit 31.9 37-47 % Mean Corpuscular Volume 86.9 80-100 fL Mean Corpuscular Hemoglobin 28.3 25-34 pg Mean Corpuscular Hemoglobin Concent 32.6 32-36 g/dl RDW Standard Deviation 41.3 36.4-46.3 fL RDW Coefficient of Variation 12.9 11.5-14.5 % Platelet Count 159 130-400 K/uL Mean Platelet Volume 9.7 7.4-10.4 fL Sodium Level 142 136-145 mmol/L Potassium Level 3.7 3.5-5.1 mmol/L Chloride Level 106 98-107 mmol/L Carbon Dioxide Level 31 21-32 mmol/L Anion Gap 5.0 3-11 mmol/L Blood Urea Nitrogen 31 7-18 mg/dl Creatinine 1.05 0.60-1.20 mg/dl Est Creatinine Clear Calc Drug Dose 55.1 ml/min Estimated GFR () 65.5 Estimated GFR (Non- 56.5 BUN/Creatinine Ratio 29.2 10-20 Random Glucose 120 70-99 mg/dl Calcium Level 9.1 8.5-10.1 mg/dl Magnesium Level 1.9 1.8-2.4 mg/dl Chemistry Specimen Hemolysis Microbiology Results 05/25/17 C.difficile Toxin B Gene (PCR) - Final, Complete No C. difficile toxin B gene detected
[2017-05-25 11:43] VITALS: BP 117/69; PULSE 53; TEMP 36.6; O2SAT 96
[2017-05-25] MEDS: LACTOBACILLUS ACIDOPHILUS (FLORANEX) TAB PO SCH ×2 (12:00→17:49)
[2017-05-25 12:05] LABS: HEMATOCRIT 31.7 % (37-47)
--- NOTE | 2017-05-25 12:38 | Pharmacy Progress Note ---
Glycemic: Assessment & Plan Date of Service May 25, 2017. Assessment & Plan Outpatient Anti-diabetic Regimen: * NovoLog 33 units SQ AC ASSESSMENT: * See note from 05/22/17 for more background info, in short, patient's home regimen of Novolog AC on hold and basal/bolus initiated * Per past admission data, patient usually requires ~40 units of insulin per day * Over the past 24 hours - BSGs ranging 115-217 mg/L * Fasting BSG 114 mg/dL this AM * Continue current regimen until discharge PLAN FOR INPATIENT GLYCEMIC CONTROL: * Basal insulin * Lantus 20 units SQ daily * Bolus insulin * NovoLog per scale ACHS or Q6hrs while NPO * Goal Range: Low 120 mg/dL - High 150 mg/dL * Correction Factor: 20 mg/dL/unit * Nutritional / Prandial insulin per carb ratio of 1 unit per 8 grams CHO consumed * Please note that the plan above was derived based on current level of insulin resistance and hospital stress. These recommendations are appropriate for inpatient admission only. Plan of care upon discharge will need to be reassessed to avoid potential outpatient hypo/hyperglycemia. Thank you.
[2017-05-25 19:59] VITALS: BP 133/72; PULSE 65; TEMP 37.2; O2SAT 93
[2017-05-25 20:24] LABS: HEMATOCRIT 30.3 % (37-47)
[2017-05-25] MEDS: DOCUSATE SODIUM/SENNA 50/8.6MG TAB PO SCH (20:46)
[2017-05-25 20:50] VITALS: BP 112/69; PULSE 63
[2017-05-26] VITALS: BP 120/57; PULSE 65; TEMP 36.9; O2SAT 92
[2017-05-26 04:54] VITALS: BP 134/77; PULSE 64; TEMP 37.4; O2SAT 92
[2017-05-26 05:52] LABS: HEMATOCRIT 32.9 % (37-47); MEAN CELL VOLUME 87.5 fL (80-100); MEAN CORPUSCULAR HEMOGLOBIN 27.7 pg (25-34); MEAN CORPUSCULAR HGB CONC 31.6 g/dl (32-36); MEAN PLATELET VOLUME 10.4 fL (7.4-10.4); PLATELET COUNT 170 K/uL (130-400); RED BLOOD COUNT 3.76 M/uL (4.2-5.4); WHITE BLOOD COUNT 8.62 K/uL (4.8-10.8)
[2017-05-26 06:45] LABS: BUN/CREATININE RATIO 24.4 (10-20); CALCIUM 8.9 mg/dl (8.5-10.1); CREATININE 0.81 mg/dl (0.60-1.20); MAGNESIUM 1.7 mg/dl (1.8-2.4); POTASSIUM 3.5 mmol/L (3.5-5.1)
[2017-05-26 08:00] VITALS: O2SAT 92
[2017-05-26] MEDS: AMOXICILLIN/CLAVULANATE TAB 500 MG TAB PO SCH (08:08)
[2017-05-26] MEDS: PANTOprazole SOD 40 MG TAB PO SCH (08:08)
[2017-05-26] MEDS: DOCUSATE SODIUM 100 MG CAP PO SCH (08:09)
[2017-05-26] MEDS: LISINOPRIL 5 MG TAB PO SCH (08:09)
[2017-05-26] MEDS: LACTOBACILLUS ACIDOPHILUS (FLORANEX) TAB PO SCH ×2 (08:09→12:25)
[2017-05-26] MEDS: METOPROLOL SUCC 50MG EXT REL TAB PO SCH (08:09)
[2017-05-26] MEDS: ESCITALOPRAM OXALATE 10 MG TAB PO SCH (08:10)
[2017-05-26] MEDS: ISOSORBIDE MONONITRATE 30 MG TABCR PO SCH (08:10)
[2017-05-26] MEDS: INSULIN ASPART 100 UNITS/ML 3 ML PEN SC SCH ×2 (08:18→12:24)
[2017-05-26] MEDS: INSULIN GLARGINE SOLOSTAR 100 UNITS/ML 3 ML PEN SC SCH (08:19)
[2017-05-26] MEDS: ATORVASTATIN 40 MG TAB PO SCH (08:21)
[2017-05-26] MEDS ORDERED: NURSING VERBAL MED ORDER ONE (08:45)
[2017-05-26 08:57] VITALS: BP 101/66; PULSE 67; TEMP 37; O2SAT 96
[2017-05-26] MEDS ORDERED: CLOPIDOGREL BISULFATE 75 MG TAB PO SCH (09:35)
[2017-05-26] MEDS: ASPIRIN 81 MG ECTAB PO SCH (10:08)
[2017-05-26] MEDS ORDERED: POTASSIUM CHLORIDE 10 MEQ TABCR PO ONE (10:30)
[2017-05-26] MEDS ORDERED: MAGNESIUM CHLORIDE 64MG DELAYED REL TAB PO ONE (10:30)
--- NOTE | 2017-05-26 10:39 | Progress Note ---
Internal Med Progress Note Date of Service: May 26, 2017. Provider Documentation: SUBJECTIVE: Seen and examined at bedside no bleeding/Melena Hb stable Denies chest pain, SOB, abd pain,Nausea, vomiting, dizziness No new complaints Feels well OBJECTIVE: Vital Signs-as noted below General Appearance: WD/WN, no apparent distress Head: normocephalic, atraumatic Eyes: normal inspection, PERRL, EOMI, sclerae normal ENT: normal ENT inspection, hearing grossly normal Neck: supple, no JVD, trachea midline Respiratory/Chest: chest non-tender, lungs clear, normal breath sounds, no respiratory distress, no accessory muscle use Cardiovascular: regular rate, rhythm, no edema, no murmur Abdomen/GI: normal bowel sounds, soft, non tender, obese Back: normal inspection Extremities/Musculoskelatal: normal inspection, no pedal edema Neurologic/Psych: bill of materials clerk II-XII nml as tested, no motor/sensory deficits, alert, normal mood/affect, oriented x 3 Skin: normal color, warm/dry Lab data as noted below. ASSESSMENT & PLAN: Nausea, Vomiting, Generalized Abdominal Pain: Resolved Possibly Gastroparesis likely secondary to care home IDDM Patient had multiple admissions with similar symptoms CT ABD: No acute intra-abdominal pathology; Large stool burden in rectum H/O Gastritis in past Refused gastric emptying study as outpatient EGD:Grade A reflux esophagitis Check stool for C.diff if diarrhea reoccurs Appreciate GI Input Gastroparesis diet continue PPI Had dark colored BM yesterday likely old blood Monitor Hb: stable resume ASA, plavix Sepsis/UTI: Urine Culture:E.faecalis Blood cultures: No growth to date Received Cefepime in ED Also received Rocephin Lactate levels normalized Normal Procalcitonin S/P IV fluids Denies urinary symptoms Continue Augmentin Hypertensive Urgency: Patient admits to missing her HTN meds. ? 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 Needs follow up with Neurology in 3-4 weeks as outpatient Adrenal Incidentaloma CT shows Left adrenal mass which increased in size since 2012 Needs work up as outpatient Previously evaluated by surgery: Needs to go to tertiary center if needs to be removed CKD III: Cr at baseline Monitor renal function IDDM: Last Hb A1C: 7.4 on 01/03/17 A1c:7.6 Yue DANGELO Diabetic diet Pharmacy Glycemic control consult CAD s/p CABG and PCI continue current cardiac medications Denies chest pain H/O V.Fib s/p ICD Stable continue home meds QTC Prolongation: Avoid QTC prolonging meds repeat EKG: QTC normalized HLP: continue statins H/O asthma: no signs of exacerbation GERD: continue PPI DVT px SCDs for now Code Status Full Code Disposition: Plan to discharge to SNF today Follow up with for Primary Care on 05/27/17 at 12:45pm Follow up with Neurologist in 3-4 weeks as advised PROCEDURES: EGD: Impression: - LA Grade A reflux esophagitis. Biopsied. - Normal stomach. Biopsied. - Normal examined duodenum. Biopsied. Recommendation: - Await pathology results. - [facility] for possible discharge same day. - Gastroparesis diet. - Use Prilosec (omeprazole) 20 mg PO daily. Vital Signs: Date Time Temp Pulse Resp B/P (MAP) Pulse Ox O2 Delivery O2 Flow Rate FiO2 05/26/17 08:57 37.0 67 18 101/66 (78) 96 Room Air 05/26/17 08:00 92 Room Air 05/26/17 04:54 37.4 64 16 134/77 (96) 92 Room Air 05/26/17 04:00 Room Air 05/26/17 00:00 Room Air 05/26/17 00:00 36.9 65 20 120/57 (78) 92 Room Air 05/25/17 20:50 63 112/69 (83) 05/25/17 20:00 Room Air 05/25/17 19:59 37.2 65 16 133/72 (92) 93 Room Air 05/25/17 16:00 Room Air 05/25/17 12:00 Room Air 05/25/17 11:43 36.6 53 16 117/69 (85) 96 Room Air Lab Results: Results Past 24 Hours Test 05/25/17 11:43 05/25/17 11:54 05/25/17 17:04 05/25/17 20:07 Range/Units Bedside Glucose 206 189 70-90 mg/dl Hemoglobin 10.4 9.9 12.0-16.0 g/dL Hematocrit 31.7 30.3 37-47 % Test 05/25/17 20:41 05/26/17 05:39 05/26/17 07:22 Range/Units Bedside Glucose 135 147 70-90 mg/dl White Blood Count 8.62 4.8-10.8 K/uL Red Blood Count 3.76 4.2-5.4 M/uL Hemoglobin 10.4 12.0-16.0 g/dL Hematocrit 32.9 37-47 % Mean Corpuscular Volume 87.5 80-100 fL Mean Corpuscular Hemoglobin 27.7 25-34 pg Mean Corpuscular Hemoglobin Concent 31.6 32-36 g/dl RDW Standard Deviation 40.9 36.4-46.3 fL RDW Coefficient of Variation 12.7 11.5-14.5 % Platelet Count 170 130-400 K/uL Mean Platelet Volume 10.4 7.4-10.4 fL Sodium Level 140 136-145 mmol/L Potassium Level 3.5 3.5-5.1 mmol/L Chloride Level 105 98-107 mmol/L Carbon Dioxide Level 30 21-32 mmol/L Anion Gap 5.0 3-11 mmol/L Blood Urea Nitrogen 20 7-18 mg/dl Creatinine 0.81 0.60-1.20 mg/dl Est Creatinine Clear Calc Drug Dose 72.2 ml/min Estimated GFR () 89.6 Estimated GFR (Non- 77.3 BUN/Creatinine Ratio 24.4 10-20 Random Glucose 148 70-99 mg/dl Calcium Level 8.9 8.5-10.1 mg/dl Magnesium Level 1.7 1.8-2.4 mg/dl
--- NOTE | 2017-05-31 08:09 | EDITING REQUIRED CODING QUERY ---
SEPSIS To promote full compliance with coding requirements relating to patient care, physician participation is requested in all cases of assembler insulator uncertainty. Please assist us with the question(s) below: In responding to this query, please exercise your independent professional judgement. The fact that a question is asked does not imply that any particular answer is desired or expected. We appreciate your clarification on this issue. Throughout the entire record some notes are stating that the patient has sepsis and others stating that the pt has SIRS. Sepsis and SIRS cannot be used interchangeably and SIRS due to a localized infection can no longer be coded as sepsis in ICD-10-CM PER coding guidelines. Below can you please clarify the final diagnosis of sepsis/SIRS PROVIDER RESPONSE: FINAL DIAGNOSIS: Sepsis secondary to UTI
== END 2017-05-26 14:10 | DRG 872 ==
LOC: EDBD 11:25 → C.EDC 11:26 → C.MED 17:37 → ENRESERV 20:14
PROVIDERS: ADMIT Internal Medicine; ATTEND Internal Medicine
PROC: 0DB98ZX Excision of Duodenum, Via Natural or Artificial Opening Endoscopic, Diagnostic (ICD-10-PCS; principal; 2017-05-24)
PROC: 0DB68ZX Excision of Stomach, Via Natural or Artificial Opening Endoscopic, Diagnostic (ICD-10-PCS; principal; 2017-05-24)
PROC: 0DB48ZX Excision of Esophagogastric Junction, Via Natural or Artificial Opening Endoscopic, Diagnostic (ICD-10-PCS; principal; 2017-05-24)
DX: A41.9 Sepsis, unspecified organism (principal); I50.32 Chronic diastolic (congestive) heart failure; I13.0 Hypertensive heart and chronic kidney disease with heart failure and stage 1 through stage 4 chronic kidney disease, or unspecified chronic kidney disease; N39.0 Urinary tract infection, site not specified; Z83.3 Family history of diabetes mellitus; Z82.49 Family history of ischemic heart disease and other diseases of the circulatory system; Z87.891 Personal history of nicotine dependence; Z79.82 Long term (current) use of aspirin; Z79.02 Long term (current) use of antithrombotics/antiplatelets; Z79.4 Long term (current) use of insulin; I25.10 Atherosclerotic heart disease of native coronary artery without angina pectoris; E78.5 Hyperlipidemia, unspecified; J45.909 Unspecified asthma, uncomplicated; F39 Unspecified mood [affective] disorder; E11.22 Type 2 diabetes mellitus with diabetic chronic kidney disease; N18.3 Chronic kidney disease, stage 3 (moderate); K21.9 Gastro-esophageal reflux disease without esophagitis; E11.43 Type 2 diabetes mellitus with diabetic autonomic (poly)neuropathy; K31.84 Gastroparesis; I16.0 Hypertensive urgency; R42 Dizziness and giddiness; D35.00 Benign neoplasm of unspecified adrenal gland; K20.9 Esophagitis, unspecified

== ENCOUNTER → 2017-06-14 | Outpatient (CLI) | payer OTHER ==
[~2017-06-14] MED LIST changes: -ALBU18002 INH; +AMOX1TAB42 PO; -CALC-354 PO; +CMP5 PO; +CYCL0.052 OP; -HYDR-3124 PO; -INSDGIPEN SC; +KETO2SHA TOP; -LACT1TAB4 PO; +LISI-729 PO; -LORA-741 PO; -MAGN64TA4 PO; -MULT-513 PO; -ONDA4TAB46 PO; +POLY335019 PO; +VNTHFA/IN INH
--- NOTE | 2017-06-14 12:46 | DIAGNOSTIC IMAGING REPORT ---
HEAD WITHOUT CONTRAST (CT) CLINICAL HISTORY: 61 years-old Female presenting with GAIT APRAXIA. TECHNIQUE: Multidetector CT imaging of the head was performed without the use of intravenous contrast. IV contrast: None. A dose lowering technique was used consistent with the principles of ALARA (as low as reasonably achievable). COMPARISON: 05/21/2017. CT DOSE (mGy.cm): The estimated cumulative dose is 1277.12 mGycm. FINDINGS: Angle Furnaceman topogram: Unremarkable. Proportional ventricular and sulcal prominence, likely age-related parenchymal volume loss. Periventricular and subcortical white matter hypoattenuation, nonspecific but likely indicative of chronic small vessel ischemic change. Persistent mild crowding of the gyri at the vertex with sulcal effacement. The callosal angle is only minimally decreased from normal and is stable to slightly less acute than on prior exam, now measuring 86 degrees, previously 74 degrees. No midline shift. No hemorrhage or acute territorial infarct. No extra-axial fluid collection. Paranasal sinuses and mastoid air cells clear. Calvarium intact. IMPRESSION: 1. No acute intracranial abnormality. 2. Findings remain suggestive of normal pressure hydrocephalus. Electronically signed by: Robert Cesar M.D. 06/14/2017 12:45 PM Dictated Date/Time: 06/14/2017 12:38 PM
== END | disposition home or self-care (01) ==
LOC: C.CTS 12:11
PROVIDERS: ATTEND Psychiatry & Neurology Neurology
DX: R48.2 Apraxia (principal)

== ENCOUNTER → 2017-06-26 | Day surgery (SDC) | payer OTHER ==
[~2017-06-26] VITALS: Ht 160 cm; Wt 81.7 kg
[~2017-06-26] MED LIST changes: +ACETAMINOPHEN 500 MG TAB PO PRN
[2017-06-26 10:40] VITALS: BP 143/84; PULSE 99; TEMP 36.9; O2SAT 96; Ht 160 cm; Wt 81.7 kg
[2017-06-26 12:44] VITALS: BP 147/67; PULSE 90; TEMP 37; O2SAT 95
--- NOTE | 2017-06-26 12:56 | Discharge Instructions ---
Discharge Instructions Procedure Procedure Date: Jun 26, 2017. Reason for visit: Nph -W/Opening Pressure. Discharge Discharge Date: Jun 26, 2017. Discharge Diagnosis: NPH Instructions Activity Recommendations: No limitations Return to School/Work: no limitations Recommended Home Diet: Resume Previous Diet Provider Instructions: Fluoroscopic guided lumbar puncture was attempted and unsuccessful. The patient left the department in satisfactory condition. ACTIVITY RECOMMENDATIONS: * Rest today. * Resume regular activity in one day. MEDICATIONS: * May take Tylenol or Ibuprofen as needed for pain. DIET: * Resume previous diet. SPECIAL CARE INSTRUCTIONS: Call your doctor if: * Temperature above 101 degrees F. * Pain not relieved by pain medicine ordered. * Increased drainage or redness from incision. * Notify your doctor with any questions or concerns. Call your doctor or go to the nearest Emergency Department if you experience: * Increased chest pain or shortness of breath. FOLLOW UP VISIT: Follow-up with Referring Physician as scheduled. Allergies Coded Allergies: BEE STING (Verified Allergy, Severe, SWELLING, 05/21/17) Lidocaine (Verified Allergy, Severe, ANAPHYLAXIS, 05/21/17) Morphine (Verified Allergy, Mild, itching, 05/21/17) Tramadol (Verified Allergy, Mild, ITCHING, 05/21/17) Trazodone (Verified Allergy, Mild, ITCHING, 05/21/17) [place] Recommendations: Call your doctor if: * Temperature above 101 degrees * Pain not relieved by pain medicine ordered * There is increased drainage or redness from any incision * You have any unanswered questions or concerns. Your Doctors Instructions noted above were prepared by provider Diego Ricardo. Patient Signature Section: Patient Instructions Signature Page Roberta Pereyra Patient (or Guardian) Signature/Date: I have read and understand the instructions given to me by my caregivers. Caregiver/RN/Doctor Signature/Date: The above-named patient and/or guardian has received patient instructions on this date. + Original Patient Signature Page (only) stays with chart. Please make copy for patient.
--- NOTE | 2017-06-26 13:01 | DIAGNOSTIC IMAGING REPORT ---
FLUOROSCOPIC GUIDED LUMBAR PUNCTURE CLINICAL HISTORY: Normal pressure hydrocephalus. PROCEDURE: The risks, benefits, and alternatives to the procedure is discussed with the patient who voiced understanding. Written informed consent was obtained. The patient was placed prone on the fluoroscopy table. The lower back was prepped and draped in the usual sterile fashion. Miryam chloride spray was used for dermal anesthesia. Lidocaine could not be used due to a reported history of anaphylactic allergy. Fluoroscopic guided lumbar puncture was attempted at L3-L4 using 22-gauge and 20-gauge spinal needles. Attempt was also made at L4-L5 using a 22-gauge needle. The procedure was unsuccessful and intrathecal access could not be obtained. The patient was in discomfort due to lack of anesthetic and declined further attempts. There were no immediate complications. The patient was then transported to the medical treatment unit prior to discharge. Fluoroscopy time: 1.2 minutes. IMPRESSION: 1. Fluoroscopic guided lumbar puncture was attempted at L3-L4 and L4-L5. The procedure was unsuccessful and intrathecal assess was not obtained. 2. Cando chloride spray was used for dermal anesthetic. Lidocaine could not be used due to a reported history of anaphylactic allergy, and lack of anesthetic compromised the procedure. Electronically signed by: Diego Ricardo M.D. 06/26/2017 1:00 PM Dictated Date/Time: 06/26/2017 12:56 PM
[2017-06-26 13:04] VITALS: BP 145/72; PULSE 77; O2SAT 100
[2017-06-26 13:15] VITALS: BP 159/73; PULSE 80; TEMP 37.3; O2SAT 99
== END | disposition home or self-care (01) ==
LOC: C.ACU 09:59
PROVIDERS: ATTEND Psychiatry & Neurology Neurology
DX: G91.2 (Idiopathic) normal pressure hydrocephalus (principal)

== ENCOUNTER 2017-09-08 11:14 | Inpatient (IN) | payer OTHER ==
[~2017-09-08] VITALS: Ht 157.5 cm; Wt 85.0 kg
[~2017-09-08 11:14] MED LIST changes: -ACETAMINOPHEN 500 MG TAB PO PRN; -AMOX1TAB42 PO
[2017-09-08 11:54] LABS: BASO % 0.2 %; BASO ABS # 0.03 K/uL (0-0.2); EOS % 0.1 %; EOS ABS # 0.01 K/uL (0-0.5); HEMOGLOBIN 12.2 g/dL (12.0-16.0); IG# 0.04 K/uL (0.00-0.02); LYMPH % 13.9 %; LYMPH ABS # 1.89 K/uL (1.2-3.4); MEAN CELL VOLUME 83.1 fL (80-100); MEAN CORPUSCULAR HEMOGLOBIN 28.2 pg (25-34); MEAN CORPUSCULAR HGB CONC 33.9 g/dl (32-36); MEAN PLATELET VOLUME 10.7 fL (7.4-10.4); MONO % 7.9 %; MONO ABS # 1.08 K/uL (0.11-0.59); NEUT % 77.6 %; NEUT ABS # 10.56 K/uL (1.4-6.5); PLATELET COUNT 207 K/uL (130-400); RED CELL DISTRIBUTION WIDTH CV 13.5 % (11.5-14.5); RED CELL DISTRIBUTION WIDTH SD 41.2 fL (36.4-46.3); WHITE BLOOD COUNT 13.61 K/uL (4.8-10.8)
[2017-09-08 11:57] LABS: PTT PATIENT 26.2 SECONDS (21.0-31.0)
[2017-09-08 12:04] LABS: ALBUMIN 3.3 gm/dl (3.4-5.0); ALT/SGPT 17 U/L (12-78); AST/SGOT 18 U/L (15-37); BLOOD UREA NITROGEN 11 mg/dl (7-18); CALCIUM 9.3 mg/dl (8.5-10.1); CARBON DIOXIDE 32 mmol/L (21-32); CREATININE 1.04 mg/dl (0.60-1.20); GLUCOSE 176 mg/dl (70-99); POTASSIUM 3.9 mmol/L (3.5-5.1); SODIUM 133 mmol/L (136-145)
[2017-09-08 12:10] LABS: ALKALINE PHOSPHATASE 64 U/L (45-117); TOTAL PROTEIN 8.3 gm/dl (6.4-8.2)
[2017-09-08 12:15] LABS: INFLUENZA B ANTIGEN Neg for Influ B (NEG)
[2017-09-08] MEDS ORDERED: ACETAMINOPHEN 325 MG SUPP PR STA (12:20)
--- NOTE | 2017-09-08 12:22 | EMERGENCY ROOM VISIT NOTE ---
History Report prepared by Melanie: Javier Cage Under the Supervision of: Dr. Randell Rojas M.D. First contact with patient: 12:01 Chief Complaint: ILLNESS Stated Complaint: UNRESPONSIVE EPISODE History of Present Illness The patient is a 62 year old black female with a past medical history of CKD, DM with insulin treatment, appendectomy, cholecystectomy, and triple bypass who presents to the ED with a cc of constant weakness beginning at 1645 yesterday. The patient is accompanied by her niece who states that she was normal yesterday and able to go to a basketball game with her family. She reports around 1645 yesterday, she noticed the patient was "wobbling" and was weak trying to get into the car. Her niece states that when she tried to wake the patient today, the patient was febrile and could not get up. She reports the patient was "like putty" and was "slumping over". Her niece states the patient has not been responsive, which is unusual. She reports that the patient's blood sugar was 244 today, which is higher than usual. Positive febrile, unresponsive , swollen face. Negative cough. The HPI is limited secondary to mental condition. Source of History: family (niece) Onset: yesterday 1644 Position: other (global) Quality: other (weakness) Timing: constant Note: Associated symptoms: hot, swollen to face, unresponsive Review of Systems The ROS is limited secondary to mental condition. Past Medical & Surgical Medical Problems: (1) Abdominal pain (2) SABRINA (acute kidney injury) (3) Altered mental state (4) Ambulatory dysfunction (5) Aortocoronary Bypass (6) Asthma, Unspecified (7) CKD (chronic kidney disease), stage III (8) Coronary atherosclerosis of [place] coronary vessel (9) Depression (10) Diab Nany Wo Compl, Type Ii Or Unspec Type, Not Uncntrld (11) Diabetic nephropathy (12) Diabetic retinopathy (13) Dizziness (14) GERD (gastroesophageal reflux disease) (15) Hypertension Nos (16) Neuropathy in diabetes (17) Obesity, Class II, BMI 35-39.9, with comorbidity (18) Obstructive Sleep Apnea (Adult) (Pediatric) (19) Osteoarthritis (20) Pacemaker (21) Polymyalgia rheumatica (22) Presence of combination internal cardiac defibrillator (ICD) and pacemaker (23) Pure Hypercholesterolem (24) Ventricular fibrillation Surgical Problems: (1) H/O eye surgery (2) History of appendectomy (3) History of cholecystectomy (4) History of hysterectomy (5) History of hysterectomy (6) S/P triple vessel bypass Social History Problems: (1) Diabetes mellitus Family History Diabetes mellitus FATHER BROTHER FH: cancer FH: lung disease FHx: heart disease MOTHER Hypertension MOTHER Kidney disease Kidney stones Social History Smoking Status: Former Smoker Alcohol Use: occasionally Drug Use: none Marital Status: Housing Status: lives alone Occupation Status: disabled Current/Historical Medications Scheduled Aspirin (Aspirin Ec), 81 MG PO QAM Clopidogrel Bisulfate (Plavix), 75 MG PO HS Docusate Sodium (Docusate Sodium), 100 MG PO DAILY Escitalopram Oxalate (Lexapro), 15 MG PO QAM Metoprolol Succinate (Metoprolol Succinate ER), 50 MG PO BID Allergies Coded Allergies: BEE STING (Verified Allergy, Severe, SWELLING, 09/08/17) Lidocaine (Verified Allergy, Severe, ANAPHYLAXIS, 09/08/17) Morphine (Verified Allergy, Mild, itching, 09/08/17) Tramadol (Verified Allergy, Mild, ITCHING, 09/08/17) Trazodone (Verified Allergy, Mild, ITCHING, 09/08/17) Physical Exam Vital Signs Date Time Temp Pulse Resp B/P (MAP) Pulse Ox O2 Delivery O2 Flow Rate FiO2 09/08/17 15:23 70 09/08/17 12:50 74 18 153/67 94 09/08/17 12:50 96 Room Air 09/08/17 11:36 75 09/08/17 11:23 39.4 75 20 163/96 95 Room Air Physical Exam GENERAL: Awake, alert, well-appearing, NAD HENT: Normocephalic, atraumatic. EYES: Normal conjunctiva. Sclera non-icteric. NECK: Supple. No nuchal rigidity. FROM. RESPIRATORY: CTAB, no rhonchi, wheezing, crackles CARDIAC: RRR, no MRG ABDOMEN: Soft, NTND, BS+ MSK: No chest wall TTP, device in left chest, midline sternotomy scar consistent with prior bypass, no LE edema NEURO: Limited to cooperation, GCS 15, CN 2-12 intact, moves all 4s on command with pain, intermittently follows commands and speaks, AxO x 1. SKIN: No rash or jaundice noted. Medical Decision & Procedures ER Provider Diagnostic Interpretation: Radiology results as stated below per my review and radiologist interpretation: CHEST ONE VIEW PORTABLE CLINICAL HISTORY: Fever. Unresponsive episode. COMPARISON STUDY: 05/21/2017 FINDINGS: The cardiac and mediastinal contours remain stable. There are postsurgical changes of a midline sternotomy. There is a left subclavian pacer/defibrillator present. There is no failure. There there is no focal pulmonary consolidation. There are no pleural effusions. IMPRESSION: No active disease in the chest. Electronically signed by: Chau Meyers M.D. 09/08/2017 12:29 PM Dictated Date/Time: 09/08/2017 12:[address] HEAD WITHOUT CONTRAST (CT) CLINICAL HISTORY: Altered mental status WEAKNESS COMPARISON STUDY: 06/14/2017 TECHNIQUE: Axial CT of the brain is performed from the vertex to the skull base. IV contrast was not administered for this examination. A dose lowering technique was utilized adhering to the principles of ALARA. CT DOSE: 601.98 mGy.cm FINDINGS: No intra or extra-axial mass lesions are visualized. There is no CT evidence of acute cortical infarction. There is no evidence of midline shift. There is no acute hemorrhage. No calvarial fractures are visualized. There are patchy white matter hypodensities likely on a small vessel basis. Mild particular prominence remains unchanged. There is no evidence of acute sinusitis IMPRESSION: No acute intracranial findings Electronically signed by: Chau Meyers M.D. 09/08/2017 12:48 PM Dictated Date/Time: 09/08/2017 12:46 PM Laboratory Results 09/08/17 11:20 Red Blood Count 4.33, Mean Corpuscular Volume 83.1, Mean Corpuscular Hemoglobin 28.2, Mean Corpuscular Hemoglobin Concent 33.9, Mean Platelet Volume 10.7, Neutrophils (%) (Auto) 77.6, Lymphocytes (%) (Auto) 13.9, Monocytes (%) (Auto) 7.9, Eosinophils (%) (Auto) 0.1, Basophils (%) (Auto) 0.2, Neutrophils # (Auto) 10.56, Lymphocytes # (Auto) 1.89, Monocytes # (Auto) 1.08, Eosinophils # (Auto) 0.01, Basophils # (Auto) 0.03 09/08/17 13:31 Test 09/08/17 11:20 09/08/17 11:38 09/08/17 13:31 09/08/17 13:55 White Blood Count 13.61 K/uL (4.8-10.8) Red Blood Count 4.33 M/uL (4.2-5.4) Hemoglobin 12.2 g/dL (12.0-16.0) Hematocrit 36.0 % (37-47) Mean Corpuscular Volume 83.1 fL (80-100) Mean Corpuscular Hemoglobin 28.2 pg (25-34) Mean Corpuscular Hemoglobin Concent 33.9 g/dl (32-36) Platelet Count 207 K/uL (130-400) Mean Platelet Volume 10.7 fL (7.4-10.4) Neutrophils (%) (Auto) 77.6 % Lymphocytes (%) (Auto) 13.9 % Monocytes (%) (Auto) 7.9 % Eosinophils (%) (Auto) 0.1 % Basophils (%) (Auto) 0.2 % Neutrophils # (Auto) 10.56 K/uL (1.4-6.5) Lymphocytes # (Auto) 1.89 K/uL (1.2-3.4) Monocytes # (Auto) 1.08 K/uL (0.11-0.59) Eosinophils # (Auto) 0.01 K/uL (0-0.5) Basophils # (Auto) 0.03 K/uL (0-0.2) RDW Standard Deviation 41.2 fL (36.4-46.3) RDW Coefficient of Variation 13.5 % (11.5-14.5) Immature Granulocyte % (Auto) 0.3 % Immature Granulocyte # (Auto) 0.04 K/uL (0.00-0.02) Globulin 5.0 gm/dl (2.5-4.0) Albumin/Globulin Ratio 0.7 (0.9-2) Influenza Type A Antigen Neg for Influ A (NEG) Influenza Type B Antigen Neg for Influ B (NEG) Prothrombin Time 10.6 SECONDS (9.0-12.0) Prothromb Time International Ratio 1.0 (0.9-1.1) Activated Partial Thromboplast Time 20.6 SECONDS (21.0-31.0) Partial Thromboplastin Ratio 0.8 Anion Gap 8.0 mmol/L (3-11) Estimated GFR () 70.7 Estimated GFR (Non- 61.0 BUN/Creatinine Ratio 10.7 (10-20) Lactic Acid Level 1.7 mmol/L (0.4-2.0) Calcium Level 9.2 mg/dl (8.5-10.1) Total Bilirubin 0.9 mg/dl (0.2-1) Direct Bilirubin 0.2 mg/dl (0-0.2) Aspartate Amino Transf (AST/SGOT) 18 U/L (15-37) Alanine Aminotransferase (ALT/SGPT) 17 U/L (12-78) Alkaline Phosphatase 61 U/L (45-117) Total Creatine Kinase 81 U/L (26-192) Troponin I < 0.015 ng/ml (0-0.045) Total Protein 8.4 gm/dl (6.4-8.2) Albumin 3.4 gm/dl (3.4-5.0) Lipase 56 U/L (73-393) Procalcitonin 0.10 ng/ml (0-0.5) Thyroid Stimulating Hormone (TSH) 0.672 uIu/ml (0.300-4.500) Urine Color YELLOW Urine Appearance CLEAR (CLEAR) Urine pH 5.0 (4.5-7.5) Urine Specific [place] 1.019 (1.000-1.030) Urine Protein NEG (NEG) Urine Glucose (UA) NEG (NEG) Urine Ketones TRACE (NEG) Urine Occult Blood NEG (NEG) Urine Nitrite NEG (NEG) Urine Bilirubin NEG (NEG) Urine Urobilinogen NEG (NEG) Urine Leukocyte Esterase SMALL (NEG) Urine WBC (Auto) 5-10 /hpf (0-5) Urine RBC (Auto) 0-4 /hpf (0-4) Urine Hyaline Casts (Auto) 1-5 /lpf (0-5) Urine Epithelial Cells (Auto) >30 /lpf (0-5) Urine Bacteria (Auto) NEG (NEG) Test 09/08/17 14:26 Venous Blood pH 7.44 (7.36-7.41) Venous Blood Partial Pressure CO2 47 mmHg (38.0-50.0) Venous Blood Partial Pressure O2 33 mmHg Venous Blood HCO3 31 mmol/L Venous Blood Oxygen Saturation 62.1 % Venous Blood Base Excess 6.1 mEq/L Laboratory results reviewed by me Medications Administered Medications (Trade) Dose Ordered Sig/Tera Route Start Time Stop Time Status Last Admin Dose Admin Acetaminophen (Tylenol Supp) 975 mg NOW STAT TX 09/08/17 12:20 09/08/17 12:22 DC 09/08/17 13:46 975 MG Vancomycin HCl 1000 mg/Sodium Chloride 270 ml @ 125 mls/hr NOW STAT IV 09/08/17 14:57 09/08/17 17:06 DC 09/08/17 17:16 125 MLS/HR Ceftriaxone Sodium (Rocephin Inj) 2 gm NOW STAT IV 09/08/17 14:57 09/08/17 14:59 DC 09/08/17 14:57 2 GM ECG Per My Interpretation Indication: weakness Rate (beats per minute): 77 Rhythm: normal sinus Findings: no ectopy, other (Normal intervals, Normal axis) ED Course 1211: The patient was evaluated in room B05. A complete history and physical exam was performed. 1428: I reevaluated the patient and updated her on her results. 1518: Upon reexamination, the patient was resting comfortably. I discussed the test results and treatment plan with the patient. The patient will be evaluated for further management. 1523: I discussed the patients case with Dr. Arce, [facility]. She understands the patient's condition and agrees to accept the patient. The patient will be further evaluated Medical Decision Triage Nursing notes reviewed. The patient is a 62 year old black female with a past medical history of CKD, DM with insulin treatment, appendectomy, cholecystectomy, and triple bypass who presents to the ED with a cc of constant weakness beginning at 1645 yesterday. The patient's presentation and history were concerning for etiologies such as metabolic, infection, hypoglycemia, electrolyte abnormalities, cardiac sources, intracerebral event, toxicologic, neurologic, viral syndrome, otitis, pharyngitis, pneumonia, influenza, meningitis, urinary tract infection, sepsis, bacteremia, as well as others were entertained. Patient was seen and evaluated the bedside. Patient does have a prior history of triple bypass, pacemaker, hypertension, diabetes, hyperlipidemia. Patient apparently was having some difficulty with walking yesterday. Patient now is intermittently mute. Patient does have a fever upon presentation. Patient does not have any other signs of meningismus. Patient is a and O 1 and will intermittently respond to commands. Patient does have an intermittent GCS of 15 the patient is not always verbal. Patient does not have any localized tenderness. Patient's body does feel warm. Patient did have blood work, blood and urine cultures, antipyretics, chest x-ray, urinalysis and CT of the brain completed. Patient's chest x-ray clear. Urinalysis did not show overt UTI. The patient does smell of urine and this may be the most likely etiology. Patient CT of the brain negative. Patient's of the blood work for the unremarkable with the exception of mild white blood cell count of 13. Patient was covered with broad-spectrum antibiotics with meningitic doses. There have been some issues with LP in the past. I did discuss this with the on-call hospitalist who agreed to defer at this time and wait for cultures and possible LP under fluoroscopy tomorrow. Patient was admitted to the medicine service. Medication Reconcilliation Current Medication List: was personally reviewed by me Blood Pressure Screening Patient's blood pressure: Elevated blood pressure Referred to Hospitalist. Consults Time Called: 1521 Consulting Physician: Jes Casiano Hospitalist Returned Call: 1523 I discussed the patients case with [facility] She understands the patient's condition and agrees to accept the patient. The patient will be further evaluated. Impression Primary Impression: Fever Additional Impressions: UTI (urinary tract infection) Altered mental status Scribe Attestation The scribe's documentation has been prepared under my direction and personally reviewed by me in its entirety. I confirm that the note above accurately reflects all work, treatment, procedures, and medical decision making performed by me. Departure Information Dispostion Being Evaluated By Hospitalist Referrals Reginaldo Ramirez D.O. (PCP) Patient Instructions My [facility] Problem Qualifiers Primary Impression: Fever Fever type: unspecified Qualified Codes: R50.9 - Fever, unspecified Additional Impressions: UTI (urinary tract infection) Urinary tract infection type: acute cystitis Hematuria presence: without hematuria Qualified Codes: N30.00 - Acute cystitis without hematuria Altered mental status Altered mental status type: transient alteration of awareness Qualified Codes : R40.4 - Transient alteration of awareness
--- NOTE | 2017-09-08 12:31 | DIAGNOSTIC IMAGING REPORT ---
CHEST ONE VIEW PORTABLE CLINICAL HISTORY: Fever. Unresponsive episode. COMPARISON STUDY: 05/21/2017 FINDINGS: The cardiac and mediastinal contours remain stable. There are postsurgical changes of a midline sternotomy. There is a left subclavian pacer/defibrillator present. There is no failure. There there is no focal pulmonary consolidation. There are no pleural effusions. IMPRESSION: No active disease in the chest. Electronically signed by: Chau Meyers M.D. 09/08/2017 12:29 PM Dictated Date/Time: 09/08/2017 12:29 PM
--- NOTE | 2017-09-08 12:49 | DIAGNOSTIC IMAGING REPORT ---
CT HEAD WITHOUT CONTRAST (CT) CLINICAL HISTORY: Altered mental status WEAKNESS COMPARISON STUDY: 06/14/2017 TECHNIQUE: Axial CT of the brain is performed from the vertex to the skull base. IV contrast was not administered for this examination. A dose lowering technique was utilized adhering to the principles of ALARA. CT DOSE: 601.98 mGy.cm FINDINGS: No intra or extra-axial mass lesions are visualized. There is no CT evidence of acute cortical infarction. There is no evidence of midline shift. There is no acute hemorrhage. No calvarial fractures are visualized. There are patchy white matter hypodensities likely on a small vessel basis. Mild particular prominence remains unchanged. There is no evidence of acute sinusitis IMPRESSION: No acute intracranial findings Electronically signed by: Chau Meyers M.D. 09/08/2017 12:48 PM Dictated Date/Time: 09/08/2017 12:46 PM
[2017-09-08 14:03] LABS: PTT PATIENT 20.6 SECONDS (21.0-31.0)
[2017-09-08 14:07] LABS: ALBUMIN 3.4 gm/dl (3.4-5.0); ALT/SGPT 17 U/L (12-78); BLOOD UREA NITROGEN 11 mg/dl (7-18); CALCIUM 9.2 mg/dl (8.5-10.1); CARBON DIOXIDE 30 mmol/L (21-32); CREATININE 0.98 mg/dl (0.60-1.20); GLUCOSE 179 mg/dl (70-99); LIPASE 56 U/L (73-393); POTASSIUM 3.7 mmol/L (3.5-5.1); SODIUM 132 mmol/L (136-145)
[2017-09-08 14:12] LABS: ALKALINE PHOSPHATASE 61 U/L (45-117); AST/SGOT 18 U/L (15-37); TOTAL PROTEIN 8.4 gm/dl (6.4-8.2)
[2017-09-08] MEDS ORDERED: CEFTRIAXONE SOD INJ 1 GM ADDVIAL IV STA (14:57)
[2017-09-08] MEDS ORDERED: VANCOMYCIN INJ 1,000 MG in SODIUM CHLORIDE 0.9% 250ML 250 ML IV STA (14:57)
[2017-09-08] MEDS ORDERED: VANCOMYCIN CONSULT ACTIVE PRN ×2 (15:00→16:15)
--- NOTE | 2017-09-08 15:51 | History and Physical ---
History & Physical Date & Time of Service: Sep 08, 2017 at 15:51 Chief Complaint: Unresponsive Episode Primary Care Physician: Reginaldo Ramirez D.O. History of Present Illness Source: family (Sister ), hospital records (ER physician ) This a 62 yo F with complex past medical hx of Type 2 DM on insulin , hx of CAD s/p CABG , Vfib cardiac arrest x2 s/p AICD placement , CKD stage 3, diabetic gastroparesis , diabetic neuropathy , chronic diastolic CHF , SACHA -pt is brought to ER via EMS - as family found her at home being febrile , minimally responsive pt remains obtunded , information obtained form Sister Kumar over Phone Yesterday -pt was had normal activity , went to baseball game with sister and Niece , prior to coming to home , pt was complaining of chills , walking more wobbly , needed a lot of assistance to get into car pt did not report of any fever /headache -other than feeling very tired as they returned home this morning around 11 am Pt's niece went to visit her -found her still sleeping in bed -which is unusual for her pt opened eyes briefly as the niece was calling her name , but there was not recognition her sister arrived few minutes later pt had wet her bed , as they tried to get her to bathroom -pt was a deadweight , slumped over like a doll 911 was called in ER , pt was febrile Temp 38-39 /remains minimally responsive , opens eyes to sternal rub Family History Diabetes mellitus FATHER BROTHER FH: cancer FH: lung disease FHx: heart disease MOTHER Hypertension MOTHER Kidney disease Kidney stones Social History Smoking Status: Former Smoker Drug Use: none Marital Status: Housing status: lives with family Occupational Status: disabled Immunizations History of Influenza Vaccine: N/A History of Tetanus Vaccine?: No History of Pneumococcal: No History of Hepatitis B Vaccine: No Allergies Coded Allergies: BEE STING (Verified Allergy, Severe, SWELLING, 09/08/17) Lidocaine (Verified Allergy, Severe, ANAPHYLAXIS, 09/08/17) Morphine (Verified Allergy, Mild, itching, 09/08/17) Tramadol (Verified Allergy, Mild, ITCHING, 09/08/17) Trazodone (Verified Allergy, Mild, ITCHING, 09/08/17) Home Medications Scheduled Aspirin (Aspirin Ec), 81 MG PO QAM Clopidogrel Bisulfate (Plavix), 75 MG PO HS Docusate Sodium (Docusate Sodium), 100 MG PO DAILY Escitalopram Oxalate (Lexapro), 15 MG PO QAM Metoprolol Succinate (Metoprolol Succinate ER), 50 MG PO BID Review of Systems unable to obtained as pt remains obtunded information obtained form family members Constitutional: + fever, + chills, + problem reported (mimimally responsive since this morning ) Physical Exam Vital Signs Date Time Temp Pulse Resp B/P (MAP) Pulse Ox O2 Delivery O2 Flow Rate FiO2 09/08/17 15:36 38.2 69 20 153/67 09/08/17 15:23 70 09/08/17 12:50 74 18 153/67 94 09/08/17 12:50 96 Room Air 09/08/17 11:36 75 09/08/17 11:23 39.4 75 20 163/96 95 Room Air General Appearance: + obese Head: normocephalic, atraumatic Eyes: + pertinent finding (bilat pupils reactive to light ) Respiratory/Chest: lungs clear Cardiovascular: regular rate, rhythm Abdomen/GI: soft Extremities/Musculoskelatal: no pedal edema Neurologic/Psych: + pertinent finding (obtunded /opens eyes briefly to voice and sternal rub /no facial droop noted ) Diagnostics Laboratory Results Results Past 24 Hours Test 09/08/17 11:20 09/08/17 11:38 09/08/17 13:31 09/08/17 13:55 Range/Units White Blood Count 13.61 4.8-10.8 K/uL Red Blood Count 4.33 4.2-5.4 M/uL Hemoglobin 12.2 12.0-16.0 g/dL Hematocrit 36.0 37-47 % Mean Corpuscular Volume 83.1 80-100 fL Mean Corpuscular Hemoglobin 28.2 25-34 pg Mean Corpuscular Hemoglobin Concent 33.9 32-36 g/dl Platelet Count 207 130-400 K/uL Mean Platelet Volume 10.7 7.4-10.4 fL Neutrophils (%) (Auto) 77.6 % Lymphocytes (%) (Auto) 13.9 % Monocytes (%) (Auto) 7.9 % Eosinophils (%) (Auto) 0.1 % Basophils (%) (Auto) 0.2 % Neutrophils # (Auto) 10.56 1.4-6.5 K/uL Lymphocytes # (Auto) 1.89 1.2-3.4 K/uL Monocytes # (Auto) 1.08 0.11-0.59 K/uL Eosinophils # (Auto) 0.01 0-0.5 K/uL Basophils # (Auto) 0.03 0-0.2 K/uL RDW Standard Deviation 41.2 36.4-46.3 fL RDW Coefficient of Variation 13.5 11.5-14.5 % Immature Granulocyte % (Auto) 0.3 % Immature Granulocyte # (Auto) 0.04 0.00-0.02 K/uL Prothrombin Time 11.0 10.6 9.0-12.0 SECONDS Prothromb Time International Ratio 1.0 1.0 0.9-1.1 Activated Partial Thromboplast Time 26.2 20.6 21.0-31.0 SECONDS Partial Thromboplastin Ratio 1.0 0.8 Sodium Level 133 132 136-145 mmol/L Potassium Level 3.9 3.7 3.5-5.1 mmol/L Chloride Level 95 94 98-107 mmol/L Carbon Dioxide Level 32 30 21-32 mmol/L Anion Gap 6.0 8.0 3-11 mmol/L Blood Urea Nitrogen 11 11 7-18 mg/dl Creatinine 1.04 0.98 0.60-1.20 mg/dl Estimated GFR () 65.8 70.7 Estimated GFR (Non- 56.7 61.0 BUN/Creatinine Ratio 10.3 10.7 10-20 Random Glucose 176 179 70-99 mg/dl Calcium Level 9.3 9.2 8.5-10.1 mg/dl Total Bilirubin 0.9 0.9 0.2-1 mg/dl Aspartate Amino Transf (AST/SGOT) 18 18 15-37 U/L Alanine Aminotransferase (ALT/SGPT) 17 17 12-78 U/L Alkaline Phosphatase 64 61 45-117 U/L Total Protein 8.3 8.4 6.4-8.2 gm/dl Albumin 3.3 3.4 3.4-5.0 gm/dl Globulin 5.0 2.5-4.0 gm/dl Albumin/Globulin Ratio 0.7 0.9-2 Influenza Type A Antigen Neg for Influ A NEG Influenza Type B Antigen Neg for Influ B NEG Lactic Acid Level 1.7 0.4-2.0 mmol/L Direct Bilirubin 0.2 0-0.2 mg/dl Total Creatine Kinase 81 26-192 U/L Troponin I < 0.015 0-0.045 ng/ml Lipase 56 73-393 U/L Urine Color YELLOW Urine Appearance CLEAR CLEAR Urine pH 5.0 4.5-7.5 Urine Specific [place] 1.019 1.000-1.030 Urine Protein NEG NEG Urine Glucose (UA) NEG NEG Urine Ketones TRACE NEG Urine Occult Blood NEG NEG Urine Nitrite NEG NEG Urine Bilirubin NEG NEG Urine Urobilinogen NEG NEG Urine Leukocyte Esterase SMALL NEG Urine WBC (Auto) 5-10 0-5 /hpf Urine RBC (Auto) 0-4 0-4 /hpf Urine Hyaline Casts (Auto) 1-5 0-5 /lpf Urine Epithelial Cells (Auto) >30 0-5 /lpf Urine Bacteria (Auto) NEG NEG Test 09/08/17 14:26 09/08/17 15:23 09/08/17 15:24 Range/Units Venous Blood pH 7.44 7.36-7.41 Venous Blood Partial Pressure CO2 47 38.0-50.0 mmHg Venous Blood Partial Pressure O2 33 mmHg Venous Blood HCO3 31 mmol/L Venous Blood Oxygen Saturation 62.1 % Venous Blood Base Excess 6.1 mEq/L Microbiology Results 09/08/17 Blood Culture, Ordered Pending 09/08/17 Blood Culture, Ordered Pending 09/08/17 Blood Culture, Received Pending 09/08/17 Blood Culture, Received Pending 09/08/17 Urine Culture, Received Pending Diagnostic Radiology CHEST XRAY : CLINICAL HISTORY: Fever. Unresponsive episode. COMPARISON STUDY: 05/21/2017 FINDINGS: The cardiac and mediastinal contours remain stable. There are postsurgical changes of a midline sternotomy. There is a left subclavian pacer/defibrillator present. There is no failure. There there is no focal pulmonary consolidation. There are no pleural effusions. IMPRESSION: No active disease in the chest. CT HEAD WITHOUT CONTRAST (CT) CLINICAL HISTORY: Altered mental status WEAKNESS COMPARISON STUDY: 06/14/2017 FINDINGS: No intra or extra-axial mass lesions are visualized. There is no CT evidence of acute cortical infarction. There is no evidence of midline shift. There is no acute hemorrhage. No calvarial fractures are visualized. There are patchy white matter hypodensities likely on a small vessel basis. Mild particular prominence remains unchanged. 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 Blood and urine culture ordered Influenza A Ig G and PCR negative MRSA DNA screen negative ID eval requested , Case D/w Dr Zarate , will add Ampicillin Iv for coverage for Listeria UNRESPONSIVENESS /METABOLIC ENCEPHALOPATHY : Possible due to meningitis , R/o other cause ammonia level < 10 Tox screen negative for ETOH, alcohol , salicylates extensive tox screen ordered MRI of brain could not be done due to AICD cont neuro check URINARY INCONTINENCE /R/O SZ no sz activity noted, no prior hx of Sz pt was seen by Neurology Dr Hemphill few months back for progressive lower ext weakness ambulatory dysfunction Neuro consult requested ; case D/w Dr Hemphill -recommend tx for meningitis EEG ordered in Am PERSISTENT FEVER : Temp remains 38 /Tmax 39.4 possible due to meningitis blood and urine culture ordered cont PRN IV Tylenol-ordered for NPO status due to unresponsiveness follow culture reports in case of positive blood cultures -pt will need ECHO to assess for endocarditis HYPONATREMIA : IVF NSS @ 125 ml/hr follow BMP TYPE 2 DM : insulin SSI /Accu check q 6hrs for NPO status HTN : BP stable cont IVF hold PO Lopressor-NPO/obtunded HX OF CAD : hold Aspirin -will need LP all PO meds are on hold till pt's mental status improves FULL CODE DVT PROPHYLAXIS : moderate risk due to obesity baseline ambulatory dysfunction heparin Sc avoided as pt will need LP SCd and teds DISPOSITION : monitor in tele will need Pt/OT eval once clinically improves /stable Medicine follow up with Dr Ramirez Pt's Sister Kumar ENCINASA # [phone] updated over phone wants provider to call her in AM with any change of status Level of Care Telemetry Resuscitation Status FULL RESUSCITATION VTE Prophylaxis VTE Risk Assessment Done? Y/N: Yes Risk Level: Moderate Given or contraindicated: T.E.D. Stockings, SCD's
[2017-09-08] MEDS ORDERED: GLUCOSE 10 TABS/TUBE PO PRN (16:00)
[2017-09-08] MEDS ORDERED: GLUCAGON FOR INJ 1 MG VIAL SQ PRN (16:00)
[2017-09-08] MEDS ORDERED: DEXTROSE 50% 50 ML SYR IV PRN (16:00)
[2017-09-08] MEDS ORDERED: ALUMINUM/MAGNESIUM/SIMETH (MAALOX MAX) 30 ML UDC PO PRN (16:00)
[2017-09-08] MEDS ORDERED: GLUCOSE 40% GEL 15 GM TUBE PO PRN (16:00)
[2017-09-08] MEDS ORDERED: ONDANSETRON INJ 2 MG/ML 2 ML VIAL IV PRN (16:00)
[2017-09-08] MEDS ORDERED: POLYETHYLENE (MIRALAX) 17 GM PACK PO PRN (16:00)
[2017-09-08] MEDS ORDERED: ACETAMINOPHEN 325 MG TAB PO PRN (16:00)
[2017-09-08] MEDS ORDERED: MAGNESIUM HYDROXIDE SUSP 30 ML UDC PO PRN (16:00)
[2017-09-08] MEDS ORDERED: ACYCLOVIR SOD INJ 750 MG in DEXTROSE 5% 250ML 250 ML IV SCH (16:15)
[2017-09-08 16:57] VITALS: BP 138/71; PULSE 66; TEMP 38; O2SAT 95
[2017-09-08] MEDS: SODIUM CHLORIDE 0.9% 1000ML 1,000 ML IV SCH (17:36)
[2017-09-08 18:38] LABS: INFLUENZA A PCR Neg for Influ A (NEG); INFLUENZA B PCR Neg for Influ B (NEG)
--- NOTE | 2017-09-08 18:50 | Pharmacy Progress Note ---
Pharmacy Antibiotic Consult Date of Service: Sep 08, 2017. Pharmacy Dosing Scope Pharmacy is consulted to initiate VANCOMYCIN IV dosing therapy, order appropriate labs and adjust drug dose/frequency. Subjective The patient is a 62 year old female admitted on Sep 08, 2017 at 15:24. Objective Height (Feet): 5 Height (Inches): 2 Weight (Kilograms): 89.000 Lab Results (24hrs): Test 09/08/17 11:20 09/08/17 11:38 09/08/17 13:31 09/08/17 13:55 White Blood Count 13.61 K/uL (4.8-10.8) Red Blood Count 4.33 M/uL (4.2-5.4) Hemoglobin 12.2 g/dL (12.0-16.0) Hematocrit 36.0 % (37-47) Mean Corpuscular Volume 83.1 fL (80-100) Mean Corpuscular Hemoglobin 28.2 pg (25-34) Mean Corpuscular Hemoglobin Concent 33.9 g/dl (32-36) Platelet Count 207 K/uL (130-400) Mean Platelet Volume 10.7 fL (7.4-10.4) Neutrophils (%) (Auto) 77.6 % Lymphocytes (%) (Auto) 13.9 % Monocytes (%) (Auto) 7.9 % Eosinophils (%) (Auto) 0.1 % Basophils (%) (Auto) 0.2 % Neutrophils # (Auto) 10.56 K/uL (1.4-6.5) Lymphocytes # (Auto) 1.89 K/uL (1.2-3.4) Monocytes # (Auto) 1.08 K/uL (0.11-0.59) Eosinophils # (Auto) 0.01 K/uL (0-0.5) Basophils # (Auto) 0.03 K/uL (0-0.2) RDW Standard Deviation 41.2 fL (36.4-46.3) RDW Coefficient of Variation 13.5 % (11.5-14.5) Immature Granulocyte % (Auto) 0.3 % Immature Granulocyte # (Auto) 0.04 K/uL (0.00-0.02) Prothrombin Time 11.0 SECONDS (9.0-12.0) 10.6 SECONDS (9.0-12.0) Prothromb Time International Ratio 1.0 (0.9-1.1) 1.0 (0.9-1.1) Activated Partial Thromboplast Time 26.2 SECONDS (21.0-31.0) 20.6 SECONDS (21.0-31.0) Partial Thromboplastin Ratio 1.0 0.8 Sodium Level 133 mmol/L (136-145) 132 mmol/L (136-145) Potassium Level 3.9 mmol/L (3.5-5.1) 3.7 mmol/L (3.5-5.1) Chloride Level 95 mmol/L (98-107) 94 mmol/L (98-107) Carbon Dioxide Level 32 mmol/L (21-32) 30 mmol/L (21-32) Anion Gap 6.0 mmol/L (3-11) 8.0 mmol/L (3-11) Blood Urea Nitrogen 11 mg/dl (7-18) 11 mg/dl (7-18) Creatinine 1.04 mg/dl (0.60-1.20) 0.98 mg/dl (0.60-1.20) Estimated GFR () 65.8 70.7 Estimated GFR (Non- 56.7 61.0 BUN/Creatinine Ratio 10.3 (10-20) 10.7 (10-20) Random Glucose 176 mg/dl (70-99) 179 mg/dl (70-99) Calcium Level 9.3 mg/dl (8.5-10.1) 9.2 mg/dl (8.5-10.1) Total Bilirubin 0.9 mg/dl (0.2-1) 0.9 mg/dl (0.2-1) Aspartate Amino Transf (AST/SGOT) 18 U/L (15-37) 18 U/L (15-37) Alanine Aminotransferase (ALT/SGPT) 17 U/L (12-78) 17 U/L (12-78) Alkaline Phosphatase 64 U/L (45-117) 61 U/L (45-117) Total Protein 8.3 gm/dl (6.4-8.2) 8.4 gm/dl (6.4-8.2) Albumin 3.3 gm/dl (3.4-5.0) 3.4 gm/dl (3.4-5.0) Globulin 5.0 gm/dl (2.5-4.0) Albumin/Globulin Ratio 0.7 (0.9-2) Influenza Type A Antigen Neg for Influ A (NEG) Influenza Type B Antigen Neg for Influ B (NEG) Lactic Acid Level 1.7 mmol/L (0.4-2.0) Direct Bilirubin 0.2 mg/dl (0-0.2) Total Creatine Kinase 81 U/L (26-192) Troponin I < 0.015 ng/ml (0-0.045) Lipase 56 U/L (73-393) Procalcitonin 0.10 ng/ml (0-0.5) Thyroid Stimulating Hormone (TSH) 0.672 uIu/ml (0.300-4.500) Urine Color YELLOW Urine Appearance CLEAR (CLEAR) Urine pH 5.0 (4.5-7.5) Urine Specific [place] 1.019 (1.000-1.030) Urine Protein NEG (NEG) Urine Glucose (UA) NEG (NEG) Urine Ketones TRACE (NEG) Urine Occult Blood NEG (NEG) Urine Nitrite NEG (NEG) Urine Bilirubin NEG (NEG) Urine Urobilinogen NEG (NEG) Urine Leukocyte Esterase SMALL (NEG) Urine WBC (Auto) 5-10 /hpf (0-5) Urine RBC (Auto) 0-4 /hpf (0-4) Urine Hyaline Casts (Auto) 1-5 /lpf (0-5) Urine Epithelial Cells (Auto) >30 /lpf (0-5) Urine Bacteria (Auto) NEG (NEG) Test 09/08/17 14:26 09/08/17 15:59 09/08/17 17:07 09/08/17 17:45 Venous Blood pH 7.44 (7.36-7.41) Venous Blood Partial Pressure CO2 47 mmHg (38.0-50.0) Venous Blood Partial Pressure O2 33 mmHg Venous Blood HCO3 31 mmol/L Venous Blood Oxygen Saturation 62.1 % Venous Blood Base Excess 6.1 mEq/L Ammonia < 10.0 umol/L (11-32) Salicylates Level 4.1 mg/dl (2.8-20) Acetaminophen Level 5 ug/ml (10-30) Ethyl Alcohol mg/dL < 3.0 mg/dl (0-3) Bedside Glucose 191 mg/dl (70-90) Influenza Type A (RT-PCR) Neg for Influ A (NEG) Influenza Type B (RT-PCR) Neg for Influ B (NEG) Micro Results: * 09/08/17 -- Urine -- pending * 09/08/17 -- Blood x 2 -- pending Recent Pertinent Medications Item Value Date Time Ceftriaxone 70 ml @ 100 mls/hr 09/09/17 0300 Sodium 2000 mg/ Q12H/IV Dextrose Acyclovir Sodium 110 ml @ 100 mls/hr 09/08/17 1800 500 mg/Dextrose Q8H/IV Assessment & Plan 62yo female ordered VANCOMYCIN/ACYCLOVIR/ROCEPHIN for possible meningitis. Renal function is good. VANCOMYCIN: * Loading dose: VANCOMYCIN 1000mg IV + VANCOMYCIN 1250mg IV = VANCOMYCIN 2250mg (25mg/kg) then VANCOMYCIN 1250mg (~14mg/kg) IV every 16 hours. * Estimated Pk parameters: Vd ~0.7L/kg Ke ~0.054 t1/2 ~13 hours * Goal trough level estimate: between 15 - 20 mcg/mL. * Trough level has been ordered for: @ 1730. Pharmacy will continue to follow and will adjust dose/frequency as necessary. Thank you
[2017-09-08] MEDS: ACYCLOVIR SOD INJ 500 MG in DEXTROSE 5% 100ML 100 ML IV SCH (18:52)
[2017-09-08] MEDS ORDERED: VANCOMYCIN INJ 1,250 MG in SODIUM CHLORIDE 0.9% 250ML 250 ML IV SCH (19:00)
[2017-09-08 19:10] VITALS: BP 149/73; PULSE 82; TEMP 39.4; O2SAT 91
[2017-09-08 19:11] VITALS: BMI 35.9
[2017-09-08] MEDS ORDERED: ACETAMINOPHEN IV 650 MG in EMPTY BAG 0 ML IV PRN (19:30)
[2017-09-08 20:01] VITALS: BP 138/71; PULSE 66; TEMP 38; O2SAT 91; Ht 157.5 cm; Wt 85.0 kg
[2017-09-08] MEDS ORDERED: SODIUM CHLORIDE 0.9% 1000ML 1,000 ML IV SCH (21:30)
[2017-09-08 22:52] VITALS: BP 103/63; PULSE 72; TEMP 38.5; O2SAT 92
[2017-09-08] MEDS: AMPICILLIN IV 2,000 MG in SODIUM CHLORIDE 0.9% 100ML 100 ML IV SCH (23:46)
[2017-09-09] VITALS (14 sets, daily range): BP systolic 112–147; BP diastolic 57–82; PULSE 68–88; TEMP 36.4–39.4; O2SAT 91–98
[2017-09-09] MEDS: ACETAMINOPHEN IV 100 ML IV PRN ×3 (01:46→22:16)
[2017-09-09] MEDS: SODIUM CHLORIDE 0.9% 1000ML 1,000 ML IV SCH ×4 (01:46→23:35)
[2017-09-09] MEDS: ACYCLOVIR SOD INJ 500 MG in DEXTROSE 5% 100ML 100 ML IV SCH ×3 (02:07→18:15)
[2017-09-09] MEDS: CEFTRIAXONE SOD INJ 2,000 MG in DEXTROSE 5% 50ML 50 ML IV SCH ×2 (03:14→15:51)
[2017-09-09] MEDS: AMPICILLIN IV 2,000 MG in SODIUM CHLORIDE 0.9% 100ML 100 ML IV SCH ×4 (04:05→21:25)
[2017-09-09 05:54] LABS: HEMATOCRIT 31.9 % (37-47); HEMOGLOBIN 10.7 g/dL (12.0-16.0); MEAN CELL VOLUME 83.7 fL (80-100); MEAN CORPUSCULAR HEMOGLOBIN 28.1 pg (25-34); MEAN CORPUSCULAR HGB CONC 33.5 g/dl (32-36); MEAN PLATELET VOLUME 10.5 fL (7.4-10.4); PLATELET COUNT 162 K/uL (130-400); RED CELL DISTRIBUTION WIDTH CV 13.7 % (11.5-14.5); WHITE BLOOD COUNT 16.62 K/uL (4.8-10.8)
[2017-09-09 06:30] LABS: ALBUMIN 2.4 gm/dl (3.4-5.0); CALCIUM 8.1 mg/dl (8.5-10.1); POTASSIUM 3.1 mmol/L (3.5-5.1)
[2017-09-09 06:31] LABS: INR 1.2 (0.9-1.1)
[2017-09-09 06:36] LABS: PHOSPHORUS 2.7 mg/dl (2.5-4.9); TOTAL PROTEIN 6.7 gm/dl (6.4-8.2)
[2017-09-09] MEDS ORDERED: MAGNESIUM SULFATE 1GM / D5W 1 GM in PREMIXED IN D5W 100 ML IV ONE (08:30)
[2017-09-09] MEDS: INSULIN GLARGINE SOLOSTAR 100 UNITS/ML 3 ML PEN SC SCH ×2 (09:14→21:31)
--- NOTE | 2017-09-09 09:52 | Neurology Consultation ---
Neurology Consultation Date of Consultation: Sep 09, 2017. Attending Physician: Mirna Stephenson M.D. Primary Care Physician: Reginaldo Ramirez D.O. Reason for Consultation: ?Meningitis History of Present Illness Source: patient 62-year-old female with past medical history of type 2 diabetes, diabetic nephropathy and retinopathy, coronary artery disease status post V. fib and cardiac arrest 2 status post AICD, chronic diastolic CHF, asthma, PMR, hyperlipidemia, obstructive sleep apnea was brought to the ER via EMS after family found her at home minimally responsive and febrile. Per the H&P the patient had normal activity and was at her baseline prior to arrival but had complained of feeling weak and wobbly. she was found to be minimally responsive and febrile the next day. She was found by her niece and her bed and had slumped over. She has a questionable history of normal pressure hydrocephalus and was evaluated by neurology in March 2017 but a lumbar puncture could not be obtained on her. She was also seen in July 2017 and recommended to follow up in 6 months. EMG was performed which revealed severe polyneuropathy with sensory and motor fibers and lower lumbar radiculopathy. In the ER, she was found to be minimally responsive and febrile with a temperature of 39.4 Fahrenheit. A lumbar puncture was not performed the ER. Chest x-ray and head CT obtained in the ER were unremarkable and she was found to have an elevated white count of 13.6. Lactic acid was 1.7 and serology was negative for influenza. UA was positive for trace leuk esterase with 5-10 WBCs and more than 30 epithelial cells. Urine drug screen came back positive for marijuana. She was admitted and neurology was consulted for probable meningitis. She was started on empiric antibiotics including vancomycin, ceftriaxone, ampicillin and acyclovir. She scheduled for lumbar puncture later today. Today, the patient appears to be alert and awake and answers questions intermittently . She doesn't appear to be drowsy but only answers a few questions. Past Medical/Surgical History Medical Problems: (1) Adrenal nodule Status: Acute (2) Altered mental status Status: Acute (3) Altered mental status Status: Acute (4) Ambulatory dysfunction Status: Acute (5) Blood in stool Status: Acute (6) Cardiomegaly Status: Acute (7) Chronic abdominal pain Status: Acute (8) Contusion of multiple sites Status: Acute (9) Dehydration Status: Acute (10) Dehydration Status: Acute (11) Dehydration Status: Acute (12) Dizziness Status: Acute (13) Epigastric abdominal pain Status: Acute (14) Fall Status: Acute (15) Fever Status: Acute (16) Hyperglycemia Status: Acute (17) Hyperglycemia Status: Acute (18) Influenza-like symptoms Status: Acute (19) Intractable nausea and vomiting Status: Acute (20) Nausea Status: Acute (21) Prolonged QT interval Status: Acute (22) Sepsis Status: Acute (23) SIRS (systemic inflammatory response syndrome) Status: Acute (24) UTI (urinary tract infection) Status: Acute Social History Problems: (1) Diabetes mellitus Status: Chronic Social History Smoking Status: Never smoker Drug Use: none Marital Status: Housing Status: lives alone Occupation Status: disabled Allergies Coded Allergies: BEE STING (Verified Allergy, Severe, SWELLING, 09/08/17) Lidocaine (Verified Allergy, Severe, ANAPHYLAXIS, 09/08/17) Morphine (Verified Allergy, Mild, itching, 09/08/17) Tramadol (Verified Allergy, Mild, ITCHING, 09/08/17) Trazodone (Verified Allergy, Mild, ITCHING, 09/08/17) Current Inpatient Medications Current Inpatient Medications Medications (Trade) Dose Ordered Sig/Tera Route Start Time Stop Time Status Last Admin Dose Admin Sodium Chloride 1,000 ml @ 125 mls/hr Q8H IV 09/08/17 15:59 10/08/17 04:28 09/09/17 05:43 125 MLS/HR Magnesium Hydroxide (Milk Of Magnesia Susp) 30 ml Q12H PRN PO 09/08/17 16:00 10/08/17 15:59 Ondansetron HCl (Zofran Inj) 4 mg Q6H PRN IV 09/08/17 16:00 10/08/17 15:59 Glucose (Glucose 40% Gel) 15-30 GRAMS 15 GRAMS... UD PRN PO 09/08/17 16:00 10/08/17 15:59 Glucose (Glucose Chew Tab) 4-8 Tablets 4 Tabl... UD PRN PO 09/08/17 16:00 10/08/17 15:59 Dextrose (Dextrose 50% 50ML Syringe) 25-50ML OF 50% DW IV FOR... UD PRN IV 09/08/17 16:00 10/08/17 15:59 Glucagon (Glucagon Inj) 1 mg UD PRN SQ 09/08/17 16:00 10/08/17 15:59 Ceftriaxone Sodium 2000 mg/ Dextrose 70 ml @ 100 mls/hr Q12H IV 09/09/17 03:00 09/19/17 02:59 09/09/17 03:14 100 MLS/HR Vancomycin HCl 1250 mg/Sodium Chloride 275 ml @ 125 mls/hr Q16H IV 09/09/17 10:00 09/19/17 09:59 Miscellaneous Information (Consult) 1 ea UD PRN N/A 09/08/17 16:15 10/08/17 16:14 Acyclovir Sodium 500 mg/Dextrose 110 ml @ 100 mls/hr Q8H IV 09/08/17 18:00 09/18/17 17:59 09/09/17 02:07 100 MLS/HR Ampicillin Sodium 2000 mg/Sodium Chloride 100 ml @ 100 mls/hr Q6H IV 09/08/17 22:00 09/18/17 21:59 09/09/17 04:05 100 MLS/HR Acetaminophen 100 ml @ 400 mls/hr Q8H PRN IV 09/08/17 22:00 10/08/17 21:59 09/09/17 01:46 400 MLS/HR Insulin Glargine (Lantus Solostar Pen) 7 units BID SC 09/09/17 09:00 10/09/17 08:59 09/09/17 09:14 7 UNITS Potassium Chloride 10 meq/ Prmx 100 ml @ 100 mls/hr Q1H IV 09/09/17 08:30 09/09/17 10:29 Review of Systems Unable to obtain much history from patient Physical Exam Vital Signs (Past 24 Hrs): Date Time Temp Pulse Resp B/P (MAP) Pulse Ox O2 Delivery O2 Flow Rate FiO2 09/09/17 07:20 37.0 68 16 128/71 (90) 95 09/09/17 04:19 36.4 82 16 119/57 (77) 91 Room Air 09/09/17 04:00 Room Air 09/09/17 03:10 37.3 09/09/17 02:11 38.7 09/09/17 01:52 39.3 09/09/17 00:00 Room Air 09/08/17 22:52 38.5 72 16 103/63 (76) 92 Room Air 09/08/17 20:01 38.0 66 20 138/71 91 Room Air 09/08/17 19:10 39.4 82 16 149/73 (98) 91 Room Air 09/08/17 16:57 38.0 66 20 138/71 (93) 95 09/08/17 16:22 38.2 69 20 153/67 94 09/08/17 15:36 38.2 69 20 153/67 09/08/17 15:23 70 09/08/17 12:50 74 18 153/67 94 09/08/17 12:50 96 Room Air 09/08/17 11:36 75 09/08/17 11:23 39.4 75 20 163/96 95 Room Air GENERAL: Patient is in no acute distress. Awake and alert but appears to be oriented to self only, responds to some questions. HEENT: No acute trauma, normocephalic atraumatic, mucous membranes moist, no nasal congestion, no scleral icterus. NECK: No stridor, no adenopathy, no meningismus, trachea is midline. LUNGS: Clear to auscultation bilaterally, no wheeze, no rhonchi, breath sounds equal. HEART: Without murmurs gallops or rubs, regular rate and rhythm. ABDOMEN: Soft, nontender, bowel sounds positive. incontinent of urine EXTREMITIES: No cyanosis or edema, charcot joints in bilateral feet NEUROLOGIC: no acute motor or sensory deficits, no focal weakness. reflexes normal. mild action tremor in bilateral thumbs. SKIN: No rash, no jaundice, no diaphoresis. Laboratory Results Past 24 Hours: 09/09/17 05:43 09/09/17 05:30 Test 09/08/17 11:20 09/08/17 11:38 09/08/17 13:31 09/08/17 13:55 Immature Granulocyte % (Auto) 0.3 % White Blood Count 13.61 K/uL (4.8-10.8) Red Blood Count 4.33 M/uL (4.2-5.4) Hemoglobin 12.2 g/dL (12.0-16.0) Hematocrit 36.0 % (37-47) Mean Corpuscular Volume 83.1 fL (80-100) Mean Corpuscular Hemoglobin 28.2 pg (25-34) Mean Corpuscular Hemoglobin Concent 33.9 g/dl (32-36) Platelet Count 207 K/uL (130-400) Mean Platelet Volume 10.7 fL (7.4-10.4) Neutrophils (%) (Auto) 77.6 % Lymphocytes (%) (Auto) 13.9 % Monocytes (%) (Auto) 7.9 % Eosinophils (%) (Auto) 0.1 % Basophils (%) (Auto) 0.2 % Neutrophils # (Auto) 10.56 K/uL (1.4-6.5) Lymphocytes # (Auto) 1.89 K/uL (1.2-3.4) Monocytes # (Auto) 1.08 K/uL (0.11-0.59) Eosinophils # (Auto) 0.01 K/uL (0-0.5) Basophils # (Auto) 0.03 K/uL (0-0.2) Immature Granulocyte # (Auto) 0.04 K/uL (0.00-0.02) Influenza Type A Antigen Neg for Influ A (NEG) Influenza Type B Antigen Neg for Influ B (NEG) Activated Partial Thromboplast Time 20.6 SECONDS (21.0-31.0) Partial Thromboplastin Ratio 0.8 Lactic Acid Level 1.7 mmol/L (0.4-2.0) Total Creatine Kinase 81 U/L (26-192) Troponin I < 0.015 ng/ml (0-0.045) Lipase 56 U/L (73-393) Procalcitonin 0.10 ng/ml (0-0.5) Thyroid Stimulating Hormone (TSH) 0.672 uIu/ml (0.300-4.500) Urine Color YELLOW Urine Appearance CLEAR (CLEAR) Urine pH 5.0 (4.5-7.5) Urine Specific [place] 1.019 (1.000-1.030) Urine Protein NEG (NEG) Urine Glucose (UA) NEG (NEG) Urine Ketones TRACE (NEG) Urine Occult Blood NEG (NEG) Urine Nitrite NEG (NEG) Urine Bilirubin NEG (NEG) Urine Urobilinogen NEG (NEG) Urine Leukocyte Esterase SMALL (NEG) Urine WBC (Auto) 5-10 /hpf (0-5) Urine RBC (Auto) 0-4 /hpf (0-4) Urine Hyaline Casts (Auto) 1-5 /lpf (0-5) Urine Epithelial Cells (Auto) >30 /lpf (0-5) Urine Bacteria (Auto) NEG (NEG) Test 09/08/17 14:26 09/08/17 15:59 09/08/17 17:45 09/08/17 23:34 Venous Blood pH 7.44 (7.36-7.41) Venous Blood Partial Pressure CO2 47 mmHg (38.0-50.0) Venous Blood Partial Pressure O2 33 mmHg Venous Blood HCO3 31 mmol/L Venous Blood Oxygen Saturation 62.1 % Venous Blood Base Excess 6.1 mEq/L Ammonia < 10.0 umol/L (11-32) Salicylates Level 4.1 mg/dl (2.8-20) Acetaminophen Level 5 ug/ml (10-30) Ethyl Alcohol mg/dL < 3.0 mg/dl (0-3) Influenza Type A (RT-PCR) Neg for Influ A (NEG) Influenza Type B (RT-PCR) Neg for Influ B (NEG) Urine Opiates Screen NEG (NEG) Urine Methadone, Qualitative NEG (NEG) Urine Barbiturates NEG (NEG) Urine Phencyclidine (PCP) Level NEG (NEG) Ur Amphetamine/Methamphetamine NEG (NEG) MDMA (Ecstasy) Screen NEG (NEG) Urine Benzodiazepines Screen NEG (NEG) Urine Cocaine Metabolite NEG (NEG) Urine Marijuana (THC) POS (NEG) Test 09/09/17 04:44 09/09/17 05:30 09/09/17 05:43 09/09/17 07:24 Prothrombin Time 12.5 SECONDS (9.0-12.0) Prothromb Time International Ratio 1.2 (0.9-1.1) Arterial Blood pH 7.48 (7.35-7.45) Arterial Blood Partial Pressure CO2 38 mmHg (35-46) Arterial Blood Partial Pressure O2 87 mm/Hg (80-95) Arterial Blood HCO3 28 mmol/L (19-24) Arterial Blood Oxygen Saturation 96.6 % (90-95) Arterial Blood Base Excess 3.9 mEq/L (-9-1.8) Arterial Blood Gas Delivery RA Wu Test POS (POS) Anion Gap 8.0 mmol/L (3-11) Est Creatinine Clear Calc Drug Dose 58.9 ml/min Estimated GFR () 69.0 Estimated GFR (Non- 59.5 BUN/Creatinine Ratio 11.3 (10-20) Calcium Level 8.1 mg/dl (8.5-10.1) Phosphorus Level 2.7 mg/dl (2.5-4.9) Magnesium Level 1.4 mg/dl (1.8-2.4) Total Bilirubin 0.9 mg/dl (0.2-1) Direct Bilirubin 0.3 mg/dl (0-0.2) Aspartate Amino Transf (AST/SGOT) 20 U/L (15-37) Alanine Aminotransferase (ALT/SGPT) 14 U/L (12-78) Alkaline Phosphatase 51 U/L (45-117) Total Protein 6.7 gm/dl (6.4-8.2) Albumin 2.4 gm/dl (3.4-5.0) Globulin 4.3 gm/dl (2.5-4.0) Albumin/Globulin Ratio 0.6 (0.9-2) Red Blood Count 3.81 M/uL (4.2-5.4) Mean Corpuscular Volume 83.7 fL (80-100) Mean Corpuscular Hemoglobin 28.1 pg (25-34) Mean Corpuscular Hemoglobin Concent 33.5 g/dl (32-36) RDW Standard Deviation 42.0 fL (36.4-46.3) RDW Coefficient of Variation 13.7 % (11.5-14.5) Mean Platelet Volume 10.5 fL (7.4-10.4) Bedside Glucose 175 mg/dl (70-90) Date/Time Source Procedure Growth Status 09/08/17 17:45 Nasal MRSA DNA Surveillance Screen - Final Specimen Negative for MRSA by DNA Probe Complete Imaging CHEST ONE VIEW PORTABLE CLINICAL HISTORY: Fever. Unresponsive episode. COMPARISON STUDY: 05/21/2017 FINDINGS: The cardiac and mediastinal contours remain stable. There are postsurgical changes of a midline sternotomy. There is a left subclavian pacer/defibrillator present. There is no failure. There there is no focal pulmonary consolidation. There are no pleural effusions. IMPRESSION: No active disease in the chest. Electronically signed by: Chau Meyers M.D. 09/08/2017 12:29 PM Dictated Date/Time: 09/08/2017 12:[address] HEAD WITHOUT CONTRAST (CT) CLINICAL HISTORY: Altered mental status WEAKNESS COMPARISON STUDY: 06/14/2017 TECHNIQUE: Axial CT of the brain is performed from the vertex to the skull base. IV contrast was not administered for this examination. A dose lowering technique was utilized adhering to the principles of ALARA. CT DOSE: 601.98 mGy.cm FINDINGS: No intra or extra-axial mass lesions are visualized. There is no CT evidence of acute cortical infarction. There is no evidence of midline shift. There is no acute hemorrhage. No calvarial fractures are visualized. There are patchy white matter hypodensities likely on a small vessel basis. Mild particular prominence remains unchanged. There is no evidence of acute sinusitis IMPRESSION: No acute intracranial findings Electronically signed by: Chau Meyers M.D. 09/08/2017 12:48 PM Dictated Date/Time: 09/08/2017 12:46 PM Impression ?Meningitis: febrile with altered mental status. Plan 62-year-old female with past medical history of type 2 diabetes, diabetic nephropathy and retinopathy, coronary artery disease status post V. fib and cardiac arrest 2 status post AICD, chronic diastolic CHF, asthma, PMR, hyperlipidemia, obstructive sleep apnea was brought to the ER via EMS after family found her at home minimally responsive and febrile. Head CT was negative for intracranial bleed with no change in ventricle size compared to last CT. MRI cannot be performed considering AICD She is currently being evaluated for possible meningitis and is currently on empiric antibiotics including vancomycin, ceftriaxone, ampicillin and acyclovir. Patient is awake and alert but only responds to a few questions which appears to be wilful. No seizure activity reported. - EEG performed - Fluoroscopy-guided lumbar puncture scheduled later today for CSF studies however she has already been on empiric antibiotics which might effect the cultures - Continue current antibiotics I have reviewed the patients records, interviewed the patient, and performed a neurologic physical examination. I have reviewed the Resident's note and agree with her assessment, impressions, and plan. This 62-year-old has longstanding insulin-dependent diabetes with diabetic retinopathy and severe diabetic polyneuropathy with sensory ataxia. She is being evaluated also, by Dr. Hemphill, as an outpatient, for possible normal pressure hydrocephalus. CT scans have shown some atrophy and have not shown any progression in ventricular size over the last 6 months. LP was attempted in June of 2017 but was not able to be obtained due to technical issues. She has incontinence of urine but does not have a significant dementia that I am aware. She has significant depression on escitalopram and significant obstructive sleep apnea. There is also history of polymyalgia rheumatica. She arrived to the emergency room with a elevated temperature and blood pressure a an elevated white count. There was a concern of confusion and generalized weakness. There was concern of meningitis. Other laboratory studies were largely unremarkable. The an LP was not done in the emergency room but she was started on multiple antibiotics. LP is scheduled for 1 o' clock today. On examination, the patient is not overly cooperative. She will say a few words at times but most the time will stare at me and not speak. Very rarely she will follow one-step command but most the time she will not follow commands. She has an occasional fine resting tremor of the left thumb and does have some bradykinesia in general. I noted some cogwheeling of the arms but not the legs. Her strength is symmetrical throughout. She had no obvious cranial nerve deficits. This patient certainly seems to have some sort of infection when she came to the emergency room and is improved currently. Early meningitis cannot be excluded. We will await for the LP later today. Unfortunately, we can't get an MRI because of her pacemaker. An EEG was obtained today but the results are pending. We will make additional recommendations depending on her clinical course and the above test results. Resident Tracking Resident Involvement: Resident Care Provided Care Provided: [facility]
[2017-09-09] MEDS: POTASSIUM CHLR 10 MEQ / WTR 10 MEQ in PREMIXED WATER 100 ML IV SCH ×2 (10:09→11:13)
[2017-09-09] MEDS: VANCOMYCIN INJ 1,250 MG in SODIUM CHLORIDE 0.9% 250ML 250 ML IV SCH ×2 (12:19→23:35)
--- NOTE | 2017-09-09 13:14 | Progress Note ---
Internal Med Progress Note Date of Service: Sep 09, 2017. Provider Documentation: SUBJECTIVE: The patient was seen and examined Responded to my greeting and after that did not answer any questions OBJECTIVE: Vital Signs-as noted below Exam: General-No acute distress Eyes-normal ENT-normal Neck-supple Lungs-Decreased breath sound bilaterally Heart-Regular Abdomen-Benign,no masses,bowel sound present Extremities-Trace edema bilaterally Neuro-AA Not communicating well Full neurological exam no possible Lab data as noted below. ASSESSMENT & PLAN: FEVER /UNRESPONSIVENESS /CONCERN FOR MENINGITIS Was found unresponsive since this AM of admission Remains febrile since admission Ct head with out contrast -no acute change and nothing to suggest Normal pressure G=Hydrocephalus as per Neurology MRI of brain could not be done for AICD CXR does not show any infiltrate or pathology Stared on empiric Abx with Vanco /Rocephin -meningitic dose and Acyclovir to cover for possible Meningitis LP is pending Appreciate Neurology input Awaiting ID input Continue current treatment Blood and urine culture ordered Influenza A Ig G and PCR negative MRSA DNA screen negative ID eval requested , Case D/w Dr Zarate , will add Ampicillin Iv for coverage for [place] UNRESPONSIVENESS /METABOLIC ENCEPHALOPATHY : Possible due to meningitis , R/o other cause Ammonia level < 10 Tox screen negative for ETOH, alcohol , salicylates,extensive tox screen ordered MRI of brain could not be done due to AICD Continue Neuro check URINARY INCONTINENCE /R/O SZ No sz activity noted, no prior hx of Sz pt was seen by Neurology Dr Hemphill few months back for progressive lower ext weakness ambulatory dysfunction EEG ordered in Am -report pending PERSISTENT FEVER : Temp remains 38 /Tmax 39.4 Possible due to meningitis Blood and urine culture ordered /LP pending In case of positive blood cultures -pt will need ECHO to assess for endocarditis HYPONATREMIA : IVF NSS @ 125 ml/hr follow BMP TYPE 2 DM : insulin SSI /Accu check q 6hrs for NPO status HTN : BP stable cont IVF hold PO Lopressor-NPO/obtunded HX OF CAD : hold Aspirin -will need LP all PO meds are on hold till pt's mental status improves FULL CODE DVT PROPHYLAXIS : moderate risk due to obesity baseline ambulatory dysfunction heparin Sc avoided as pt will need LP SCd and teds DISPOSITION : monitor in tele will need Pt/OT eval once clinically improves /stable Medicine follow up with Dr Ramirez Pt's Sister Kumar WRIGHT # [phone] updated over phone Vital Signs: Date Time Temp Pulse Resp B/P (MAP) Pulse Ox O2 Delivery O2 Flow Rate FiO2 09/09/17 12:25 38.7 09/09/17 12:00 Room Air 09/09/17 12:00 Room Air 09/09/17 11:31 39.4 84 18 147/82 (103) 95 Room Air 09/09/17 08:00 Room Air 09/09/17 07:20 37.0 68 16 128/71 (90) 95 09/09/17 04:19 36.4 82 16 119/57 (77) 91 Room Air 09/09/17 04:00 Room Air 09/09/17 03:10 37.3 09/09/17 02:11 38.7 09/09/17 01:52 39.3 09/09/17 00:00 Room Air 09/08/17 22:52 38.5 72 16 103/63 (76) 92 Room Air 09/08/17 20:01 38.0 66 20 138/71 91 Room Air 09/08/17 19:10 39.4 82 16 149/73 (98) 91 Room Air 09/08/17 16:57 38.0 66 20 138/71 (93) 95 09/08/17 16:22 38.2 69 20 153/67 94 09/08/17 15:36 38.2 69 20 153/67 09/08/17 15:23 70 Lab Results: Results Past 24 Hours Test 09/08/17 13:31 09/08/17 13:55 09/08/17 14:26 09/08/17 15:59 Range/Units Prothrombin Time 10.6 9.0-12.0 SECONDS Prothromb Time International Ratio 1.0 0.9-1.1 Activated Partial Thromboplast Time 20.6 21.0-31.0 SECONDS Partial Thromboplastin Ratio 0.8 Sodium Level 132 136-145 mmol/L Potassium Level 3.7 3.5-5.1 mmol/L Chloride Level 94 98-107 mmol/L Carbon Dioxide Level 30 21-32 mmol/L Anion Gap 8.0 3-11 mmol/L Blood Urea Nitrogen 11 7-18 mg/dl Creatinine 0.98 0.60-1.20 mg/dl Estimated GFR () 70.7 Estimated GFR (Non- 61.0 BUN/Creatinine Ratio 10.7 10-20 Random Glucose 179 70-99 mg/dl Lactic Acid Level 1.7 0.4-2.0 mmol/L Calcium Level 9.2 8.5-10.1 mg/dl Total Bilirubin 0.9 0.2-1 mg/dl Direct Bilirubin 0.2 0-0.2 mg/dl Aspartate Amino Transf (AST/SGOT) 18 15-37 U/L Alanine Aminotransferase (ALT/SGPT) 17 12-78 U/L Alkaline Phosphatase 61 45-117 U/L Total Creatine Kinase 81 26-192 U/L Troponin I < 0.015 0-0.045 ng/ml Total Protein 8.4 6.4-8.2 gm/dl Albumin 3.4 3.4-5.0 gm/dl Lipase 56 73-393 U/L Procalcitonin 0.10 0-0.5 ng/ml Thyroid Stimulating Hormone (TSH) 0.672 0.300-4.500 uIu/ml Urine Color YELLOW Urine Appearance CLEAR CLEAR Urine pH 5.0 4.5-7.5 Urine Specific [place] 1.019 1.000-1.030 Urine Protein NEG NEG Urine Glucose (UA) NEG NEG Urine Ketones TRACE NEG Urine Occult Blood NEG NEG Urine Nitrite NEG NEG Urine Bilirubin NEG NEG Urine Urobilinogen NEG NEG Urine Leukocyte Esterase SMALL NEG Urine WBC (Auto) 5-10 0-5 /hpf Urine RBC (Auto) 0-4 0-4 /hpf Urine Hyaline Casts (Auto) 1-5 0-5 /lpf Urine Epithelial Cells (Auto) >30 0-5 /lpf Urine Bacteria (Auto) NEG NEG Venous Blood pH 7.44 7.36-7.41 Venous Blood Partial Pressure CO2 47 38.0-50.0 mmHg Venous Blood Partial Pressure O2 33 mmHg Venous Blood HCO3 31 mmol/L Venous Blood Oxygen Saturation 62.1 % Venous Blood Base Excess 6.1 mEq/L Ammonia < 10.0 11-32 umol/L Salicylates Level 4.1 2.8-20 mg/dl Acetaminophen Level 5 10-30 ug/ml Ethyl Alcohol mg/dL < 3.0 0-3 mg/dl Test 09/08/17 17:07 09/08/17 17:45 09/08/17 20:57 09/08/17 23:34 Range/Units Bedside Glucose 191 182 70-90 mg/dl Influenza Type A (RT-PCR) Neg for Influ A NEG Influenza Type B (RT-PCR) Neg for Influ B NEG Urine Opiates Screen NEG NEG Urine Methadone, Qualitative NEG NEG Urine Barbiturates NEG NEG Urine Phencyclidine (PCP) Level NEG NEG Ur Amphetamine/Methamphetamine NEG NEG MDMA (Ecstasy) Screen NEG NEG Urine Benzodiazepines Screen NEG NEG Urine Cocaine Metabolite NEG NEG Urine Marijuana (THC) POS NEG Test 09/09/17 04:44 09/09/17 05:30 09/09/17 05:43 09/09/17 05:46 Range/Units Prothrombin Time 12.5 9.0-12.0 SECONDS Prothromb Time International Ratio 1.2 0.9-1.1 Arterial Blood pH 7.48 7.35-7.45 Arterial Blood Partial Pressure CO2 38 35-46 mmHg Arterial Blood Partial Pressure O2 87 80-95 mm/Hg Arterial Blood HCO3 28 19-24 mmol/L Arterial Blood Oxygen Saturation 96.6 90-95 % Arterial Blood Base Excess 3.9 -9-1.8 mEq/L Arterial Blood Gas Delivery RA Wu Test POS POS Sodium Level 135 136-145 mmol/L Potassium Level 3.1 3.5-5.1 mmol/L Chloride Level 99 98-107 mmol/L Carbon Dioxide Level 28 21-32 mmol/L Anion Gap 8.0 3-11 mmol/L Blood Urea Nitrogen 11 7-18 mg/dl Creatinine 1.00 0.60-1.20 mg/dl Est Creatinine Clear Calc Drug Dose 58.9 ml/min Estimated GFR () 69.0 Estimated GFR (Non- 59.5 BUN/Creatinine Ratio 11.3 10-20 Random Glucose 186 70-99 mg/dl Calcium Level 8.1 8.5-10.1 mg/dl Phosphorus Level 2.7 2.5-4.9 mg/dl Magnesium Level 1.4 1.8-2.4 mg/dl Total Bilirubin 0.9 0.2-1 mg/dl Direct Bilirubin 0.3 0-0.2 mg/dl Aspartate Amino Transf (AST/SGOT) 20 15-37 U/L Alanine Aminotransferase (ALT/SGPT) 14 12-78 U/L Alkaline Phosphatase 51 45-117 U/L Total Protein 6.7 6.4-8.2 gm/dl Albumin 2.4 3.4-5.0 gm/dl Globulin 4.3 2.5-4.0 gm/dl Albumin/Globulin Ratio 0.6 0.9-2 White Blood Count 16.62 4.8-10.8 K/uL Red Blood Count 3.81 4.2-5.4 M/uL Hemoglobin 10.7 12.0-16.0 g/dL Hematocrit 31.9 37-47 % Mean Corpuscular Volume 83.7 80-100 fL Mean Corpuscular Hemoglobin 28.1 25-34 pg Mean Corpuscular Hemoglobin Concent 33.5 32-36 g/dl RDW Standard Deviation 42.0 36.4-46.3 fL RDW Coefficient of Variation 13.7 11.5-14.5 % Platelet Count 162 130-400 K/uL Mean Platelet Volume 10.5 7.4-10.4 fL Bedside Glucose 205 70-90 mg/dl Test 09/09/17 07:24 09/09/17 11:16 Range/Units Bedside Glucose 175 203 70-90 mg/dl Microbiology Results 09/09/17 Cryptococcal Antigen, Ordered Pending 09/08/17 Blood Culture, Received Pending 09/08/17 Blood Culture, Received Pending 09/09/17 Acid Fast Stain, Ordered Pending 09/09/17 Mycobacterial Culture, Ordered Pending 09/09/17 Cryptococcal Antigen, Ordered Pending 09/09/17 Fungal Culture, Ordered Pending 09/09/17 Gram Stain, Ordered Pending 09/09/17 CSF Culture, Ordered Pending 09/08/17 MRSA DNA Surveillance Screen - Final, Complete Specimen Negative for MRSA by DNA Probe 09/08/17 Urine Culture, Received Pending
--- NOTE | 2017-09-09 15:19 | Medical Consult ---
Consultation Date of Consultation: Sep 09, 2017. Attending Physician: Mirna Stephenson M.D. Reason for Consultation: Fever, lethargy History of Present Illness 62-year-old female with history of diabetes mellitus with diabetic neuropathy, coronary artery disease, status post AICD placement, obstructive sleep apnea, chronic kidney disease, who was apparently in usual state of health until 1 day prior to admission, where she was said to be complaining of weakness and unsteadiness. Following day, she was found at home to be poorly responsive and was brought to the emergency room for further management. CT scan of the head, read by me, showed no obvious intracranial process. She was found to be febrile, with no obvious source of infection on exam. As discussed with hospitalist service, patient was started on antibiotics for potential of meningitis with combination of vancomycin, ceftriaxone, ampicillin, and acyclovir. MRI not able to be done because of AICD. Patient has now been scheduled for lumbar puncture. No report of significant travel or exposure history. Past Medical/Surgical History Medical Problems: (1) Adrenal nodule Status: Acute (2) Altered mental status Status: Acute (3) Altered mental status Status: Acute (4) Ambulatory dysfunction Status: Acute (5) Blood in stool Status: Acute (6) Cardiomegaly Status: Acute (7) Chronic abdominal pain Status: Acute (8) Contusion of multiple sites Status: Acute (9) Dehydration Status: Acute (10) Dehydration Status: Acute (11) Dehydration Status: Acute (12) Dizziness Status: Acute (13) Epigastric abdominal pain Status: Acute (14) Fall Status: Acute (15) Fever Status: Acute (16) Hyperglycemia Status: Acute (17) Hyperglycemia Status: Acute (18) Influenza-like symptoms Status: Acute (19) Intractable nausea and vomiting Status: Acute (20) Nausea Status: Acute (21) Prolonged QT interval Status: Acute (22) Sepsis Status: Acute (23) SIRS (systemic inflammatory response syndrome) Status: Acute (24) UTI (urinary tract infection) Status: Acute Social History Problems: (1) Diabetes mellitus Status: Chronic Medical Problems: (1) Abdominal pain (2) SABRINA (acute kidney injury) (3) Altered mental state (4) Ambulatory dysfunction (5) Aortocoronary Bypass (6) Asthma, Unspecified (7) CKD (chronic kidney disease), stage III (8) Coronary atherosclerosis of [place] coronary vessel (9) Depression (10) Diab Nany Wo Compl, Type Ii Or Unspec Type, Not Uncntrld (11) Diabetic nephropathy (12) Diabetic retinopathy (13) Dizziness (14) GERD (gastroesophageal reflux disease) (15) Hypertension Nos (16) Neuropathy in diabetes (17) Obesity, Class II, BMI 35-39.9, with comorbidity (18) Obstructive Sleep Apnea (Adult) (Pediatric) (19) Osteoarthritis (20) Pacemaker (21) Polymyalgia rheumatica (22) Presence of combination internal cardiac defibrillator (ICD) and pacemaker (23) Pure Hypercholesterolem (24) Ventricular fibrillation Surgical Problems: (1) H/O eye surgery (2) History of appendectomy (3) History of cholecystectomy (4) History of hysterectomy (5) History of hysterectomy (6) S/P triple vessel bypass Social History Problems: (1) Diabetes mellitus Family History Diabetes mellitus FATHER BROTHER FH: cancer FH: lung disease FHx: heart disease MOTHER Hypertension MOTHER Kidney disease Kidney stones Social History Smoking Status: Former Smoker Drug Use: none Marital Status: Housing Status: lives alone Occupation Status: disabled Allergies Coded Allergies: BEE STING (Verified Allergy, Severe, SWELLING, 09/08/17) Lidocaine (Verified Allergy, Severe, ANAPHYLAXIS, 09/08/17) Morphine (Verified Allergy, Mild, itching, 09/08/17) Tramadol (Verified Allergy, Mild, ITCHING, 09/08/17) Trazodone (Verified Allergy, Mild, ITCHING, 09/08/17) Current Inpatient Medications Current Inpatient Medications Medications (Trade) Dose Ordered Sig/Tera Route Start Time Stop Time Status Last Admin Dose Admin Sodium Chloride 1,000 ml @ 125 mls/hr Q8H IV 09/08/17 15:59 10/08/17 04:28 09/09/17 05:43 125 MLS/HR Magnesium Hydroxide (Milk Of Magnesia Susp) 30 ml Q12H PRN PO 09/08/17 16:00 10/08/17 15:59 Ondansetron HCl (Zofran Inj) 4 mg Q6H PRN IV 09/08/17 16:00 10/08/17 15:59 Glucose (Glucose 40% Gel) 15-30 GRAMS 15 GRAMS... UD PRN PO 09/08/17 16:00 10/08/17 15:59 Glucose (Glucose Chew Tab) 4-8 Tablets 4 Tabl... UD PRN PO 09/08/17 16:00 10/08/17 15:59 Dextrose (Dextrose 50% 50ML Syringe) 25-50ML OF 50% DW IV FOR... UD PRN IV 09/08/17 16:00 10/08/17 15:59 Glucagon (Glucagon Inj) 1 mg UD PRN SQ 09/08/17 16:00 10/08/17 15:59 Ceftriaxone Sodium 2000 mg/ Dextrose 70 ml @ 100 mls/hr Q12H IV 09/09/17 03:00 09/19/17 02:59 09/09/17 03:14 100 MLS/HR Vancomycin HCl 1250 mg/Sodium Chloride 275 ml @ 125 mls/hr Q16H IV 09/09/17 10:00 09/19/17 09:59 09/09/17 12:19 125 MLS/HR Miscellaneous Information (Consult) 1 ea UD PRN N/A 09/08/17 16:15 10/08/17 16:14 Acyclovir Sodium 500 mg/Dextrose 110 ml @ 100 mls/hr Q8H IV 09/08/17 18:00 09/18/17 17:59 09/09/17 11:15 100 MLS/HR Ampicillin Sodium 2000 mg/Sodium Chloride 100 ml @ 100 mls/hr Q6H IV 09/08/17 22:00 09/18/17 21:59 09/09/17 10:09 100 MLS/HR Acetaminophen 100 ml @ 400 mls/hr Q8H PRN IV 09/08/17 22:00 10/08/17 21:59 09/09/17 11:33 400 MLS/HR Insulin Glargine (Lantus Solostar Pen) 7 units BID SC 09/09/17 09:00 10/09/17 08:59 09/09/17 09:14 7 UNITS Review of Systems Not obtainable because of patient's mental status Physical Exam Date Time Temp Pulse Resp B/P (MAP) Pulse Ox O2 Delivery O2 Flow Rate FiO2 09/09/17 14:59 37.5 73 18 123/71 (88) 94 Room Air 09/09/17 13:41 38.0 09/09/17 12:25 38.7 09/09/17 12:00 Room Air 09/09/17 12:00 Room Air 09/09/17 11:31 39.4 84 18 147/82 (103) 95 Room Air 09/09/17 08:00 Room Air 09/09/17 07:20 37.0 68 16 128/71 (90) 95 09/09/17 04:19 36.4 82 16 119/57 (77) 91 Room Air 09/09/17 04:00 Room Air 09/09/17 03:10 37.3 09/09/17 02:11 38.7 09/09/17 01:52 39.3 09/09/17 00:00 Room Air 09/08/17 22:52 38.5 72 16 103/63 (76) 92 Room Air 09/08/17 20:01 38.0 66 20 138/71 91 Room Air 09/08/17 19:10 39.4 82 16 149/73 (98) 91 Room Air 09/08/17 16:57 38.0 66 20 138/71 (93) 95 09/08/17 16:22 38.2 69 20 153/67 94 09/08/17 15:36 38.2 69 20 153/67 09/08/17 15:23 70 General Appearance: WD/WN, no apparent distress Head: normocephalic, atraumatic Eyes: normal inspection, EOMI, sclerae normal ENT: normal ENT inspection, pharynx normal Neck: supple, no adenopathy, thyroid normal, trachea midline Respiratory/Chest: chest non-tender, lungs clear, normal breath sounds, no respiratory distress Cardiovascular: regular rate, rhythm, no gallop, no murmur Abdomen/GI: normal bowel sounds, non tender, soft, no organomegaly Back: normal inspection, no CVA tenderness Extremities/Musculoskelatal: no calf tenderness, normal capillary refill, non- tender Neurologic/Psych: + pertinent finding (Patient lethargic but arouses to voice, does not answer questions) Skin: normal color, warm/dry, no rash Lymphatic: no adenopathy Laboratory Results Date/Time Source Procedure Growth Status 09/09/17 11:26 Blood Cryptococcal Antigen Pending Ordered 09/09/17 04:44 Cerebral Spinal Fluid Acid Fast Stain Pending Ordered 09/09/17 04:44 Cerebral Spinal Fluid Mycobacterial Culture Pending Ordered 09/09/17 04:44 Cerebral Spinal Fluid Cryptococcal Antigen Pending Ordered 09/09/17 04:44 Cerebral Spinal Fluid Fungal Culture Pending Ordered 09/09/17 04:44 Cerebral Spinal Fluid Gram Stain Pending Ordered 09/09/17 04:44 Cerebral Spinal Fluid CSF Culture Pending Ordered 09/08/17 17:45 Nasal MRSA DNA Surveillance Screen - Final Specimen Negative for MRSA by DNA Probe Complete Last 24 Hours Test 09/08/17 15:59 09/08/17 17:07 09/08/17 17:45 09/08/17 20:57 Ammonia < 10.0 umol/L Salicylates Level 4.1 mg/dl Acetaminophen Level 5 ug/ml Ethyl Alcohol mg/dL < 3.0 mg/dl Bedside Glucose 191 mg/dl 182 mg/dl Influenza Type A (RT-PCR) Neg for Influ A Influenza Type B (RT-PCR) Neg for Influ B Test 09/08/17 23:34 09/09/17 04:44 09/09/17 05:30 09/09/17 05:43 Urine Opiates Screen NEG Urine Methadone, Qualitative NEG Urine Barbiturates NEG Urine Phencyclidine (PCP) Level NEG Ur Amphetamine/Methamphetamine NEG MDMA (Ecstasy) Screen NEG Urine Benzodiazepines Screen NEG Urine Cocaine Metabolite NEG Urine Marijuana (THC) POS Prothrombin Time 12.5 SECONDS Prothromb Time International Ratio 1.2 Arterial Blood pH 7.48 Arterial Blood Partial Pressure CO2 38 mmHg Arterial Blood Partial Pressure O2 87 mm/Hg Arterial Blood HCO3 28 mmol/L Arterial Blood Oxygen Saturation 96.6 % Arterial Blood Base Excess 3.9 mEq/L Arterial Blood Gas Delivery RA Wu Test POS Sodium Level 135 mmol/L Potassium Level 3.1 mmol/L Chloride Level 99 mmol/L Carbon Dioxide Level 28 mmol/L Anion Gap 8.0 mmol/L Blood Urea Nitrogen 11 mg/dl Creatinine 1.00 mg/dl Est Creatinine Clear Calc Drug Dose 58.9 ml/min Estimated GFR () 69.0 Estimated GFR (Non- 59.5 BUN/Creatinine Ratio 11.3 Random Glucose 186 mg/dl Calcium Level 8.1 mg/dl Phosphorus Level 2.7 mg/dl Magnesium Level 1.4 mg/dl Total Bilirubin 0.9 mg/dl Direct Bilirubin 0.3 mg/dl Aspartate Amino Transf (AST/SGOT) 20 U/L Alanine Aminotransferase (ALT/SGPT) 14 U/L Alkaline Phosphatase 51 U/L Total Protein 6.7 gm/dl Albumin 2.4 gm/dl Globulin 4.3 gm/dl Albumin/Globulin Ratio 0.6 White Blood Count 16.62 K/uL Red Blood Count 3.81 M/uL Hemoglobin 10.7 g/dL Hematocrit 31.9 % Mean Corpuscular Volume 83.7 fL Mean Corpuscular Hemoglobin 28.1 pg Mean Corpuscular Hemoglobin Concent 33.5 g/dl RDW Standard Deviation 42.0 fL RDW Coefficient of Variation 13.7 % Platelet Count 162 K/uL Mean Platelet Volume 10.5 fL Test 09/09/17 05:46 09/09/17 07:24 09/09/17 11:16 Bedside Glucose 205 mg/dl 175 mg/dl 203 mg/dl Patient Name: ELIAS MCKEON Unit Number: [id number] Dictated: 09/08/171245 Transcribed: 09/08/171245 ARG Printed Date/Time: [~ rep prt dt]/[~ rep prt tm] [~ rep ct labl] - [~ rep ct ivnm] [facility] Radiology Department [place], [place] [id number] Dictated: 09/08/171245 Transcribed: 09/08/171245 ARG Printed Date/Time: [~ rep prt dt]/[~ rep prt tm] [~ rep ct labl] - [~ rep ct ivnm] [~ rep ct add3]] CT HEAD WITHOUT CONTRAST (CT) CLINICAL HISTORY: Altered mental status WEAKNESS COMPARISON STUDY: 06/14/2017 TECHNIQUE: Axial CT of the brain is performed from the vertex to the skull base. IV contrast was not administered for this examination. A dose lowering technique was utilized adhering to the principles of ALARA. CT DOSE: 601.98 mGy.cm FINDINGS: No intra or extra-axial mass lesions are visualized. There is no CT evidence of acute cortical infarction. There is no evidence of midline shift. There is no acute hemorrhage. No calvarial fractures are visualized. There are patchy white matter hypodensities likely on a small vessel basis. Mild particular prominence remains unchanged. There is no evidence of acute sinusitis IMPRESSION: No acute intracranial findings Electronically signed by: Chau Meyers M.D. 09/08/2017 12:48 PM Dictated Date/Time: 09/08/2017 12:46 PM The status of this report is Signed. Draft = Not yet reviewed or approved by Radiologist. Signed = Reviewed and approved by Radiologist. <AttendingPhy></AttendingPhy> <FamilyPhy>Reginaldo Ramirez D.O.</FamilyPhy> < PrimaryPhy>Reginaldo Ramirez D.O.</PrimaryPhy> <UnitNumber>[id number]</UnitNumber > <VisitNumber>[id number]</VisitNumber> <PatientName>ELIAS MCKEON</ PatientName> <DateOfBirth>1955</DateOfBirth> <Location>C.EDB</Location> < ServiceDate>09/08/17</ServiceDate> <MNE>ESINDI</MNE> <OrderingPhy>Randell Rojas M.D.</OrderingPhy> <OrderingPhyMNE>f rep ord dr valentine</OrderingPhyMNE> < DictatingPhyMNE>f rep dict dr valentine</DictatingPhyMNE> <CCListMNE>f rep ct mne</ CCListMNE> <AdmittingPhyMNE>f pt admit dr valentine</AdmittingPhyMNE> <AttendingPhyMNE >f pt attend dr valentine</AttendingPhyMNE> <ConsultingPhyMNE>f pt consult dr valentine</ConsultingPhyMNE> <FamilyPhyMNE>f pt fam dr valentine</FamilyPhyMNE> <OtherPhyMNE>f pt other dr valentine</OtherPhyMNE> < PrimaryPhyMNE>f pt prim care dr valentine</PrimaryPhyMNE> <ReferringPhyMNE>f pt referring dr valentine</ReferringPhyMNE> Assessment & Plan 62-year-old female with longstanding diabetes mellitus as well as multiple other medical comorbidities admitted with 1 day history of abrupt change in mental status. Agree with need for lumbar puncture as MRI scan cannot be performed. Appropriate studies have been ordered on CSF. Serum cryptococcal antigen ordered as well. Patient to be maintained on vancomycin, ceftriaxone, ampicillin, and acyclovir pending CSF results. Will follow.
[2017-09-10] VITALS (7 sets, daily range): BP systolic 116–137; BP diastolic 74–80; PULSE 68–83; TEMP 36.8–37.7; O2SAT 94–97
[2017-09-10] MEDS: CEFTRIAXONE SOD INJ 2,000 MG in DEXTROSE 5% 50ML 50 ML IV SCH ×2 (02:12→15:10)
[2017-09-10] MEDS: ACYCLOVIR SOD INJ 500 MG in DEXTROSE 5% 100ML 100 ML IV SCH ×3 (02:53→17:45)
[2017-09-10] MEDS: AMPICILLIN IV 2,000 MG in SODIUM CHLORIDE 0.9% 100ML 100 ML IV SCH ×4 (04:18→21:47)
[2017-09-10] MEDS: SODIUM CHLORIDE 0.9% 1000ML 1,000 ML IV SCH (07:55)
[2017-09-10] MEDS: INSULIN GLARGINE SOLOSTAR 100 UNITS/ML 3 ML PEN SC SCH ×2 (08:04→20:47)
--- NOTE | 2017-09-10 08:19 | ELECTROENCEPHALOGRAPH REPORT ---
REQUESTING PHYSICIAN: Dr. Stephenson. CLINICAL DIAGNOSIS: Encephalopathy with fever. ELECTROENCEPHALOGRAM DIAGNOSIS: Mildly diffusely abnormal EEG during wakefulness. DESCRIPTION OF TRACING: This EEG was done as a bedside recording on a patient who is described as somewhat dull and confused by the actuarial technician. Photic stimulation was performed. Hyperventilation was not. Drowsiness and light sleep were not clearly recorded. Under these conditions, there is evidence for a background rhythm in the lower alpha range, occasionally slipping into the theta range between 8 and 9 Hz of maximum frequency and of up to 30 microvolts of maximum amplitude. This is maximum in posterior head regions and bilaterally symmetrical. Polymorphic low frequency modest amplitude theta activity intermixed with some isolated waveforms in the delta range is present over the central regions in a fairly symmetrical fashion and is not associated with any potentially epileptogenic activity. Beta activity is seen bifrontally. Photic stimulation provoked some modest driving response without a photomyogenic or photoparoxysmal component. At no time during the waking tracing is there evidence for potentially epileptogenic activity in the form of polyspike or spike wave bursts, focal sharp waves or focal spikes. INTERPRETATION: This EEG reveals evidence for mild generalized nonspecific abnormalities consistent with an encephalopathy but revealing no lateralizing features and no evidence for potentially epileptogenic activity.
--- NOTE | 2017-09-10 08:56 | Neurology Progress Notes ---
Neurology Progress Note Date of Service Sep 10, 2017. Subjective 62-year-old female with past medical history of type 2 diabetes, diabetic nephropathy and retinopathy, coronary artery disease status post V. fib and cardiac arrest 2 status post AICD, chronic diastolic CHF, asthma, PMR, hyperlipidemia, obstructive sleep apnea was brought to the ER via EMS after family found her at home minimally responsive and febrile. Head CT was negative for intracranial bleed with no change in ventricle size compared to last CT. MRI cannot be performed considering AICD She is currently being evaluated for possible meningitis and is currently on empiric antibiotics including vancomycin, ceftriaxone, ampicillin and acyclovir. The patient is awake, alert and oriented today and responds to all questions appropriately. denies any headache, nausea, vomiting . states that she doesn't remember what brought her to the hospital. she denies any fever/chills currently but had been febrile last night. LP could not be performed yesterday as the patient did not give consent. Denies any abdominal pain, dysuria but she has a history of urinary incontinence. She also reveals she is constipated and does not remember the last time she had a bowel movement. Objective Date Time Temp Pulse Resp B/P (MAP) Pulse Ox O2 Delivery O2 Flow Rate FiO2 09/10/17 07:29 37.0 79 18 130/75 (93) 94 Room Air 09/10/17 05:04 37.1 68 18 116/74 (88) 97 09/10/17 04:00 Room Air 09/10/17 00:00 Room Air 09/09/17 23:14 38.0 86 18 112/60 (77) 98 Room Air 09/09/17 21:35 38.9 09/09/17 20:00 92 Room Air 09/09/17 19:27 37.8 88 22 135/82 (99) 92 Room Air 09/09/17 16:00 94 Room Air 09/09/17 14:59 37.5 73 18 123/71 (88) 94 Room Air 09/09/17 13:41 38.0 09/09/17 12:25 38.7 09/09/17 12:00 Room Air 09/09/17 12:00 Room Air 09/09/17 11:31 39.4 84 18 147/82 (103) 95 Room Air Last 24 Hours Test 09/09/17 11:16 09/09/17 16:24 2/26/18 18:05 09/09/17 23:21 Bedside Glucose 203 mg/dl 154 mg/dl 140 mg/dl 147 mg/dl Test 09/10/17 04:44 09/10/17 05:30 09/10/17 05:59 09/10/17 07:48 Bedside Glucose 125 mg/dl 136 mg/dl EEG: This EEG reveals evidence for mild generalized nonspecific abnormalities consistent with an encephalopathy but revealing no lateralizing features and no evidence for potentially epileptogenic activity. Exam: GENERAL: Patient is in no acute distress, Awake alert and oriented 3 HEENT: No acute trauma, normocephalic atraumatic, mucous membranes moist, no nasal congestion, no scleral icterus. NECK: No stridor, no adenopathy, no meningismus, trachea is midline. LUNGS: Clear to auscultation bilaterally, no wheeze, no rhonchi, breath sounds equal. HEART: Without murmurs gallops or rubs, regular rate and rhythm. ABDOMEN: Soft, nontender, bowel sounds positive, no hernias, no peritonitis. EXTREMITIES: No cyanosis or edema, full range of motion of all the joints without pain or difficulty, no signs for acute trauma. NEUROLOGIC: Oriented x 3, no acute motor or sensory deficits, no focal weakness. SKIN: No rash, no jaundice, no diaphoresis. Impression / Plan Patient was febrile overnight but appears to be awake, alert and oriented Altered mental status: Resolved The patient is awake, alert and oriented X3. It is likely the patient had an altered mental status owing to bacteremia from a UTI. Her preliminary blood cultures are growing gram positive cocci and UC is growing streptococcus species. EEG revealed changes consistent with encephalopathy. Lumbar puncture could not be performed yesterday as the patient did not give consent. At this point, her symptoms appear to be less likely from meningitis as the source appears to be the urinary tract. She is currently still on vancomycin, ceftriaxone, ampicillin and acyclovir and antibiotics can be adjusted per her primary team. Attending note: I have reviewed this patient's records today, and I evaluated the patient at bedside with both interview and examination neurologically. I reviewed the resident's note and agree with her assessment and plan. Patient refused LP yesterday so it was not done. EEG revealed mild generalized dysrhythmia but no focal findings or potentially epileptogenic discharges. Nursing reports no abnormal events overnight or this morning. The patient herself has no complaint of pain or headache, vision problems, weakness or numbness. Neurologic examination reveals that she is awake and alert and with good speech in conversation, although she is a little slow in answering. She has no aphasia or dysarthria. Extraocular eye muscles are intact without nystagmus. There is no facial droop. Neck is supple. Limb movement is symmetrical. She does have some mild bradykinesia in general. There is no resting tremor. Gram-positive sepsis, likely from urinary tract origin. I do not believe this patient had significant meningitis on admission, although a very early meningitic process could not be excluded. LP could not be obtained when she is on multiple antibiotic coverage. Clinically she is doing very well and does not have any meningeal signs. Possible normal pressure hydrocephalus, with stable CT scans over the last 6 months. This can be followed up as an outpatient. I see no reason, currently, to do any further neurologic testing. I will defer adjustment of antibiotics to Infectious Disease, who is following. Please contact me if I can be of further assistance on this case. Dr. Hemphill follows this patient as an outpatient. Resident Tracking Resident Involvement: Resident Care Provided Care Provided: Adult [facility] Medicine
[2017-09-10 16:00] LABS: ALBUMIN 2.5 gm/dl (3.4-5.0); CALCIUM 8.6 mg/dl (8.5-10.1); CREATININE 0.86 mg/dl (0.60-1.20); POTASSIUM 3.2 mmol/L (3.5-5.1)
[2017-09-10] MEDS ORDERED: POTASSIUM CHLORIDE 20 MEQ TABCR PO ONE (16:45)
--- NOTE | 2017-09-10 17:04 | Progress Note ---
Medicine Progress Note Date & Time of Visit: Sep 10, 2017 at 16:25. Subjective Pt was seen and examined Sitting in bed with no distress Pt said that she feels fine She refused to get the LP done Denies any chest pain, palpitation and SOB Objective Last 8 Hrs Date Time Temp Pulse Resp B/P (MAP) Pulse Ox O2 Delivery O2 Flow Rate FiO2 09/10/17 16:08 36.9 75 18 137/80 (99) 95 Room Air 09/10/17 12:00 Room Air 09/10/17 11:46 36.8 83 20 125/74 (91) 94 Physical Exam: General- No acute distress Head- atraumatic Eyes- PERRL, EOMI ENT- oropharynx clear Neck- supple, no JVD Lungs- Poor air entry Heart- regular rhythm Abdomen- normal bowel sounds, soft Extremities- no pretibial edema Neuro- alert, oriented, PERRL, EOMI, follow direction Skin- warm & dry Laboratory Results: Last 24 Hours Test 09/09/17 18:05 09/09/17 23:21 09/10/17 04:44 09/10/17 05:30 Bedside Glucose 140 mg/dl 147 mg/dl Test 09/10/17 05:59 09/10/17 07:48 09/10/17 11:27 09/10/17 15:24 Bedside Glucose 125 mg/dl 136 mg/dl 108 mg/dl Sodium Level 136 mmol/L Potassium Level 3.2 mmol/L Chloride Level 101 mmol/L Carbon Dioxide Level 30 mmol/L Anion Gap 5.0 mmol/L Blood Urea Nitrogen 9 mg/dl Creatinine 0.86 mg/dl Est Creatinine Clear Calc Drug Dose 66.0 ml/min Estimated GFR () 82.7 Estimated GFR (Non- 71.4 BUN/Creatinine Ratio 9.9 Random Glucose 104 mg/dl Calcium Level 8.6 mg/dl Total Bilirubin 0.5 mg/dl Direct Bilirubin 0.2 mg/dl Aspartate Amino Transf (AST/SGOT) 17 U/L Alanine Aminotransferase (ALT/SGPT) 14 U/L Alkaline Phosphatase 64 U/L Total Protein 8.0 gm/dl Albumin 2.5 gm/dl Globulin 5.5 gm/dl Albumin/Globulin Ratio 0.5 Date/Time Source Procedure Growth Status 09/10/17 11:26 Blood Cryptococcal Antigen Pending Ordered 09/10/17 04:44 Cerebral Spinal Fluid Acid Fast Stain Pending Ordered 09/10/17 04:44 Cerebral Spinal Fluid Mycobacterial Culture Pending Ordered 09/10/17 04:44 Cerebral Spinal Fluid Cryptococcal Antigen Pending Ordered 09/10/17 04:44 Cerebral Spinal Fluid Fungal Culture Pending Ordered 09/10/17 04:44 Cerebral Spinal Fluid Gram Stain Pending Ordered 09/10/17 04:44 Cerebral Spinal Fluid CSF Culture Pending Ordered Assessment & Plan FEVER Was found unresponsive by family Possible secondary to UTI or bacteremia Doubt about meningitis CT head showed no acute intracranial findings MRI of brain could not be done for AICD CXR does not show any infiltrate or pathology On IV Vanco /Rocephin/Ampicillin, Acyclovir to cover for possible Meningitis Refused LP Denies any headache or neck stiffness Neurology on board ID on board Blood cx positive for gram positive cocci Urine cx positive for enterococcus faecalis Continue current treatment Will get an echo UNRESPONSIVENESS METABOLIC ENCEPHALOPATHY : Need to R/O meningitis Denies any headache and neck stiffness Ammonia level < 10 Tox screen negative for ETOH, alcohol , salicylates,extensive tox screen ordered MRI of brain could not be done due to AICD Continue Neuro check EEG reveals evidence for mild generalized nonspecific abnormalities consistent with an encephalopathy No evidence for potentially epileptogenic activity on EEG Stable URINARY INCONTINENCE No history of seizure and no seizure activity noted Stable AMBULATORY DYSFUNCTION Fall precaution PT/OT evaluation ELECTROLYTES IMBALANCE Na 136 K replaced D/C VF Continue monitor BMP TYPE 2 DM Most recent Hba1c 7.6 (05/31) On Lantus 7 unit BID Monitor BS HTN BP stable Will resume Po med in am HX CAD Aspirin has been on hold for the LP Will resume asa since pt refused LP FULL CODE DVT PROPHYLAXIS : SCd and teds Will start on heparin subq since pt refused LP DISPOSITION Will discharge once medically stable Medicine follow up with Dr Ramirez Pt's Sister Kumar ENCINASLeroy # [phone] Consultants: Neuro ID Current Inpatient Medications: Current Inpatient Medications Medications (Trade) Dose Ordered Sig/Tera Route Start Time Stop Time Status Last Admin Dose Admin Sodium Chloride 1,000 ml @ 125 mls/hr Q8H IV 09/08/17 15:59 10/08/17 04:28 09/10/17 07:55 125 MLS/HR Magnesium Hydroxide (Milk Of Magnesia Susp) 30 ml Q12H PRN PO 09/08/17 16:00 3/27/18 15:59 Ondansetron HCl (Zofran Inj) 4 mg Q6H PRN IV 09/08/17 16:00 10/08/17 15:59 Glucose (Glucose 40% Gel) 15-30 GRAMS 15 GRAMS... UD PRN PO 09/08/17 16:00 10/08/17 15:59 Glucose (Glucose Chew Tab) 4-8 Tablets 4 Tabl... UD PRN PO 09/08/17 16:00 10/08/17 15:59 Dextrose (Dextrose 50% 50ML Syringe) 25-50ML OF 50% DW IV FOR... UD PRN IV 09/08/17 16:00 10/08/17 15:59 Glucagon (Glucagon Inj) 1 mg UD PRN SQ 09/08/17 16:00 10/08/17 15:59 Ceftriaxone Sodium 2000 mg/ Dextrose 70 ml @ 100 mls/hr Q12H IV 09/09/17 03:00 09/19/17 02:59 09/10/17 15:10 100 MLS/HR Vancomycin HCl 1250 mg/Sodium Chloride 275 ml @ 125 mls/hr Q16H IV 09/09/17 10:00 09/19/17 09:59 09/09/17 23:35 125 MLS/HR Miscellaneous Information (Consult) 1 ea UD PRN N/A 09/08/17 16:15 10/08/17 16:14 Acyclovir Sodium 500 mg/Dextrose 110 ml @ 100 mls/hr Q8H IV 09/08/17 18:00 09/18/17 17:59 09/10/17 10:42 100 MLS/HR Ampicillin Sodium 2000 mg/Sodium Chloride 100 ml @ 100 mls/hr Q6H IV 09/08/17 22:00 09/18/17 21:59 09/10/17 15:51 100 MLS/HR Acetaminophen 100 ml @ 400 mls/hr Q8H PRN IV 09/08/17 22:00 10/08/17 21:59 09/09/17 22:16 400 MLS/HR Insulin Glargine (Lantus Solostar Pen) 7 units BID SC 09/09/17 09:00 10/09/17 08:59 09/10/17 08:04 7 UNITS
[2017-09-10 17:10] LABS: PHOSPHORUS 1.5 mg/dl (2.5-4.9)
[2017-09-10] MEDS ORDERED: VANCOMYCIN TROUGH ONE (17:30)
[2017-09-10] MEDS: VANCOMYCIN INJ 1,250 MG in SODIUM CHLORIDE 0.9% 250ML 250 ML IV SCH (17:44)
--- NOTE | 2017-09-10 19:46 | Pharmacy Progress Note ---
Pharmacy Antibiotic Prog Note Date of Service Sep 10, 2017. Subjective The patient is currently receiving VANCOMYCIN 1250mg IV every 16 hours. The patient is currently on day # 3 of VANCOMYCIN / ACYCLOVIR / ROCEPHIN IV therapy. Objective Height (Feet): 5 Height (Inches): 2.00 Weight (Kilograms): 83.100 Levels: Item Value Date Time Vancomycin Level Trough 19.5 mcg/ml 09/10/17 1808 Lab Results (24hrs): Test 09/10/17 04:44 09/10/17 11:27 09/10/17 15:24 09/10/17 16:48 Bedside Glucose 108 mg/dl (70-90) 107 mg/dl (70-90) Sodium Level 136 mmol/L (136-145) Potassium Level 3.2 mmol/L (3.5-5.1) Chloride Level 101 mmol/L (98-107) Carbon Dioxide Level 30 mmol/L (21-32) Anion Gap 5.0 mmol/L (3-11) Blood Urea Nitrogen 9 mg/dl (7-18) Creatinine 0.86 mg/dl (0.60-1.20) Est Creatinine Clear Calc Drug Dose 66.0 ml/min Estimated GFR () 82.7 Estimated GFR (Non- 71.4 BUN/Creatinine Ratio 9.9 (10-20) Random Glucose 104 mg/dl (70-99) Calcium Level 8.6 mg/dl (8.5-10.1) Phosphorus Level 1.5 mg/dl (2.5-4.9) Magnesium Level 1.8 mg/dl (1.8-2.4) Total Bilirubin 0.5 mg/dl (0.2-1) Direct Bilirubin 0.2 mg/dl (0-0.2) Aspartate Amino Transf (AST/SGOT) 17 U/L (15-37) Alanine Aminotransferase (ALT/SGPT) 14 U/L (12-78) Alkaline Phosphatase 64 U/L (45-117) Total Protein 8.0 gm/dl (6.4-8.2) Albumin 2.5 gm/dl (3.4-5.0) Globulin 5.5 gm/dl (2.5-4.0) Albumin/Globulin Ratio 0.5 (0.9-2) Test 09/10/17 18:08 Vancomycin Level Trough 19.5 mcg/ml (SEE COMMENT) Micro Results: * SEE EMR Recent Pertinent Medications Item Value Date Time Vancomycin HCl 275 ml @ 125 mls/hr 09/09/17 1000 1250 mg/Sodium Q16H/IV 09/10/17 1744 Chloride Ceftriaxone 70 ml @ 100 mls/hr 09/09/17 0300 Sodium 2000 mg/ Q12H/IV 09/10/17 1510 Dextrose Ampicillin Sodium 100 ml @ 100 mls/hr 09/08/17 2200 2000 mg/Sodium Q6H/IV 09/10/17 1551 Chloride Acyclovir Sodium 110 ml @ 100 mls/hr 09/08/17 1800 500 mg/Dextrose Q8H/IV 09/10/17 1745 Assessment & Plan 62yo female receiving VANCOMYCIN / ACYCLOVIR / ROCEPHIN for possible meningitis. Renal function has remained stable. VANCOMYCIN: * Patient has been receiving VANCOMYCIN 1250mg IV q16h. * Trough level drawn prior to 1800 dose today = 19.5 mcg/mL. * This drug level is: Therapeutic, however will increase dosing interval slightly as trough is currently at the high end of goal range. * Change to VANCOMYCIN 1250mg IV every 18 hours. * Goal trough level estimate: between 15 - 20 mcg/mL. * Will recheck a trough level in a few days if VANCOMYCIN is continued. Pharmacy will continue to follow and will adjust dose/frequency as necessary. Thank you
[2017-09-10] MEDS: ACETAMINOPHEN IV 100 ML IV PRN (20:04)
--- NOTE | 2017-09-10 20:32 | Infectious Disease Progress Nt ---
Progress Note Date of Service Sep 10, 2017. Subjective Pt evaluation today including: conversation w/ patient, physical exam, chart review, lab review, review of studies, conversation w/ loss control consultant, review of inpatient medication list Patient much more awake and alert now, offers no new complaints. Remains afebrile. Cultures remain negative to date. Lumbar puncture not performed as yet. Blood cultures now reported positive for gram-positive cocci. Urine culture positive for Enterococcus faecalis, sensitive to vancomycin. All Other Systems: Reviewed and Negative Medications Current Inpatient Medications Medications (Trade) Dose Ordered Sig/Tera Route Start Time Stop Time Status Last Admin Dose Admin Magnesium Hydroxide (Milk Of Magnesia Susp) 30 ml Q12H PRN PO 09/08/17 16:00 10/08/17 15:59 Ondansetron HCl (Zofran Inj) 4 mg Q6H PRN IV 09/08/17 16:00 10/08/17 15:59 Glucose (Glucose 40% Gel) 15-30 GRAMS 15 GRAMS... UD PRN PO 09/08/17 16:00 10/08/17 15:59 Glucose (Glucose Chew Tab) 4-8 Tablets 4 Tabl... UD PRN PO 09/08/17 16:00 10/08/17 15:59 Dextrose (Dextrose 50% 50ML Syringe) 25-50ML OF 50% DW IV FOR... UD PRN IV 09/08/17 16:00 10/08/17 15:59 Glucagon (Glucagon Inj) 1 mg UD PRN SQ 09/08/17 16:00 10/08/17 15:59 Ceftriaxone Sodium 2000 mg/ Dextrose 70 ml @ 100 mls/hr Q12H IV 09/09/17 03:00 09/19/17 02:59 09/10/17 15:10 100 MLS/HR Miscellaneous Information (Consult) 1 ea UD PRN N/A 09/08/17 16:15 10/08/17 16:14 Acyclovir Sodium 500 mg/Dextrose 110 ml @ 100 mls/hr Q8H IV 09/08/17 18:00 09/18/17 17:59 09/10/17 17:45 100 MLS/HR Ampicillin Sodium 2000 mg/Sodium Chloride 100 ml @ 100 mls/hr Q6H IV 09/08/17 22:00 09/18/17 21:59 09/10/17 15:51 100 MLS/HR Acetaminophen 100 ml @ 400 mls/hr Q8H PRN IV 09/08/17 22:00 10/08/17 21:59 09/10/17 20:04 400 MLS/HR Insulin Glargine (Lantus Solostar Pen) 7 units BID SC 09/09/17 09:00 10/09/17 08:59 09/10/17 08:04 7 UNITS Vancomycin HCl 1250 mg/Sodium Chloride 275 ml @ 125 mls/hr Q18H IV 09/11/17 12:00 09/21/17 11:59 Objective Vital Signs Date Time Temp Pulse Resp B/P (MAP) Pulse Ox O2 Delivery O2 Flow Rate FiO2 09/10/17 16:08 36.9 75 18 137/80 (99) 95 Room Air 09/10/17 16:00 Room Air 09/10/17 12:00 Room Air 09/10/17 11:46 36.8 83 20 125/74 (91) 94 09/10/17 08:00 Room Air 09/10/17 07:29 37.0 79 18 130/75 (93) 94 Room Air 09/10/17 05:04 37.1 68 18 116/74 (88) 97 09/10/17 04:00 Room Air 09/10/17 00:00 Room Air 09/09/17 23:14 38.0 86 18 112/60 (77) 98 Room Air 09/09/17 21:35 38.9 Physical Exam General Appearance: WD/WN, no apparent distress Eyes: normal inspection, EOMI, sclerae normal ENT: normal ENT inspection, hearing grossly normal, pharynx normal Neck: supple, no adenopathy, thyroid normal, trachea midline Respiratory/Chest: chest non-tender, lungs clear, normal breath sounds, no respiratory distress Cardiovascular: regular rate, rhythm, no gallop, no murmur Abdomen: normal bowel sounds, non tender, soft, no organomegaly Extremities: non-tender, no calf tenderness, normal capillary refill Neurologic/Psychiatric: alert, oriented x 3 Skin: normal color, warm/dry, no rash Lymphatic: no adenopathy Laboratory Results Patient Name: JUSTIN CEE Unit Number: [id number] Dictated: 09/10/171610 Transcribed: 09/10/171610 [facility] Printed Date/Time: [~ rep prt dt]/[~ rep prt tm] [~ rep ct labl] - [~ rep ct ivnm] [facility] [place] [address] Dictated: 09/10/171610 Transcribed: 09/10/171610 [facility] Printed Date/Time: [~ rep prt dt]/[~ rep prt tm] [~ rep ct labl] - [~ rep ct ivnm] [~ rep ct add3]] BILATERAL LOWER EXTREMITY VENOUS DOPPLER HISTORY: Assess for DVT. known pulmonary embolus, active cancer, may require IVC filter COMPARISON STUDY: None. FINDINGS: There is normal compressibility, flow, and augmentation within the bilateral lower extremity deep venous systems. IMPRESSION: No DVT within the right or left lower extremity. Electronically signed by: Teofilo Barnett M.D. 09/10/2017 4:12 PM Dictated Date/Time: 09/10/2017 4:11 PM The status of this report is Signed. Draft = Not yet reviewed or approved by Radiologist. Signed = Reviewed and approved by Radiologist. <AttendingPhy>Lamonte Kaufman MD</AttendingPhy> <FamilyPhy>Sanket Braden M.D.</FamilyPhy> <PrimaryPhy>Sanket Braden M.D.</PrimaryPhy> < UnitNumber>[id number]</UnitNumber> <VisitNumber>[id number]</VisitNumber> < PatientName>JUSTIN CEE</PatientName> <DateOfBirth>08/25/1933</DateOfBirth > <Location>[facility]</Location> <ServiceDate>09/09/17</ServiceDate> <MNE>ESINDI</ MNE> <OrderingPhy>Maicol Rivas D.O.</OrderingPhy> <OrderingPhyMNE>f rep ord dr valentine</OrderingPhyMNE> <DictatingPhyMNE>f rep dict dr valentine</DictatingPhyMNE > <CCListMNE>f rep ct mne</CCListMNE> <AdmittingPhyMNE>f pt admit dr valentine</ AdmittingPhyMNE> <AttendingPhyMNE>f pt attend dr valentine</AttendingPhyMNE> <ConsultingPhyMNE>f pt consult dr valentine</ConsultingPhyMNE> <FamilyPhyMNE>f pt fam dr valentine</FamilyPhyMNE> <OtherPhyMNE>f pt other dr valentine</OtherPhyMNE> < PrimaryPhyMNE>f pt prim care dr valentine</PrimaryPhyMNE> <ReferringPhyMNE>f pt referring dr valentine</ReferringPhyMNE> Last 24 Hours Test 09/09/17 23:21 09/10/17 04:44 09/10/17 05:59 09/10/17 07:48 Bedside Glucose 147 mg/dl 125 mg/dl 136 mg/dl Test 09/10/17 11:27 09/10/17 15:24 09/10/17 16:48 09/10/17 18:08 Bedside Glucose 108 mg/dl 107 mg/dl Sodium Level 136 mmol/L Potassium Level 3.2 mmol/L Chloride Level 101 mmol/L Carbon Dioxide Level 30 mmol/L Anion Gap 5.0 mmol/L Blood Urea Nitrogen 9 mg/dl Creatinine 0.86 mg/dl Est Creatinine Clear Calc Drug Dose 66.0 ml/min Estimated GFR () 82.7 Estimated GFR (Non- 71.4 BUN/Creatinine Ratio 9.9 Random Glucose 104 mg/dl Calcium Level 8.6 mg/dl Phosphorus Level 1.5 mg/dl Magnesium Level 1.8 mg/dl Total Bilirubin 0.5 mg/dl Direct Bilirubin 0.2 mg/dl Aspartate Amino Transf (AST/SGOT) 17 U/L Alanine Aminotransferase (ALT/SGPT) 14 U/L Alkaline Phosphatase 64 U/L Total Protein 8.0 gm/dl Albumin 2.5 gm/dl Globulin 5.5 gm/dl Albumin/Globulin Ratio 0.5 Vancomycin Level Trough 19.5 mcg/ml Assessment and Plan 62-year-old female with longstanding diabetes mellitus as well as multiple other medical comorbidities admitted with 1 day history of abrupt change in mental status. Mental status has rapidly improved, less consistent with bacterial meningitis, more consistent with encephalopathy from urinary tract infection. Significance of positive blood cultures unclear at present time, as may be contaminant. Await follow-up blood cultures, will continue present antibiotics another 24 hours until further cultures available.
[2017-09-11] VITALS (8 sets, daily range): BP systolic 138–154; BP diastolic 65–83; PULSE 59–75; TEMP 36.6–37.6; O2SAT 93–97
[2017-09-11] MEDS: ACYCLOVIR SOD INJ 500 MG in DEXTROSE 5% 100ML 100 ML IV SCH ×2 (01:35→09:47)
[2017-09-11] MEDS: CEFTRIAXONE SOD INJ 2,000 MG in DEXTROSE 5% 50ML 50 ML IV SCH ×2 (03:20→14:42)
[2017-09-11] MEDS: AMPICILLIN IV 2,000 MG in SODIUM CHLORIDE 0.9% 100ML 100 ML IV SCH ×3 (04:22→15:43)
[2017-09-11 06:27] LABS: HEMATOCRIT 28.7 % (37-47); HEMOGLOBIN 9.8 g/dL (12.0-16.0); MEAN CELL VOLUME 83.4 fL (80-100); MEAN CORPUSCULAR HEMOGLOBIN 28.5 pg (25-34); MEAN CORPUSCULAR HGB CONC 34.1 g/dl (32-36); MEAN PLATELET VOLUME 10.4 fL (7.4-10.4); PLATELET COUNT 165 K/uL (130-400); RED CELL DISTRIBUTION WIDTH CV 13.9 % (11.5-14.5); RED CELL DISTRIBUTION WIDTH SD 42.2 fL (36.4-46.3); WHITE BLOOD COUNT 10.66 K/uL (4.8-10.8)
[2017-09-11 06:59] LABS: CALCIUM 7.9 mg/dl (8.5-10.1); CREATININE 0.7 mg/dl (0.60-1.20); POTASSIUM 3.2 mmol/L (3.5-5.1)
[2017-09-11 07:03] LABS: PHOSPHORUS 1.8 mg/dl (2.5-4.9); TOTAL PROTEIN 6.6 gm/dl (6.4-8.2)
[2017-09-11] MEDS: INSULIN GLARGINE SOLOSTAR 100 UNITS/ML 3 ML PEN SC SCH ×2 (08:32→21:10)
[2017-09-11] MEDS ORDERED: POTASSIUM CHLORIDE 20 MEQ TABCR PO ONE (09:08)
[2017-09-11] MEDS ORDERED: MAGNESIUM SULFATE 1GM / D5W 1 GM in PREMIXED IN D5W 100 ML IV ONE (09:08)
[2017-09-11] MEDS ORDERED: POTASSIUM PHOSPHATE INJ 21 MMOL in SODIUM CHLORIDE 0.9% 500ML 500 ML IV ONE (09:15)
[2017-09-11] MEDS ORDERED: POTASSIUM PHOS 3 MMOL/1 ML INFUSION IV ONE (09:15)
--- NOTE | 2017-09-11 12:18 | Clinical Documentation Query ---
CLINICAL DOCUMENTATION QUERY Dr. WHITE, In your clinical opinion is this patient being managed for: ( ) Sepsis, POA ( X ) Not Agree ( ) Other explanation of clinical findings (Please Explain) ( ) Unable to determine (Please Define) ( ) Need to Discuss The medical record reflects the following clinical findings, treatment, and risk factors. Clinical Indicators: 62 yo female presenting with fever, altered mental status, metabolic encephalopathy. BC x 1 with coag negative staph. VS 39.4-75-20 163/96. WBC 13.61. Neurology consult suggests gram negative sepsis. Treatment: IV vancomycin, IV rocephin, ID consult, neurology consult, IV acyclovir, IV fluids, IV tylenol prn Risk Factors: age, DM, UTI, CKD Please clarify and document your clinical opinion in the progress notes and discharge summary. Terms such as "probable", "suspected", "likely", "questionable", "possible", or "still to be ruled out" are acceptable. IF IN AGREEMENT, YOU MUST DOCUMENT ABOVE DIAGNOSTIC STATEMENT IN DAILY PROGRESS NOTES AND DISCHARGE SUMMARY. This document is not part of the patient's record. Thank You, Sharmila Warren, RN [phone]
[2017-09-11] MEDS: VANCOMYCIN INJ 1,250 MG in SODIUM CHLORIDE 0.9% 250ML 250 ML IV SCH (12:19)
--- NOTE | 2017-09-11 16:11 | Progress Note ---
Medicine Progress Note Date & Time of Visit: Sep 11, 2017 at 16:02. Subjective Pt was seen and examined Sitting in bed comfortable with no distress Pt said that she feels fine her diet has been advanced She is back to her baseline She remembered me from yesterday Nurse said that pt has been saying that she feel hot Denies any chest pain, palpitation, dizziness, headache, neck stiffness, vision disturbances and SOB Objective Last 8 Hrs Date Time Temp Pulse Resp B/P (MAP) Pulse Ox O2 Delivery O2 Flow Rate FiO2 09/11/17 12:30 93 Room Air 09/11/17 12:13 37.3 72 16 138/78 (98) 93 Room Air 09/11/17 08:30 93 Room Air Physical Exam: General- No acute distress Head- atraumatic Eyes- PERRL, EOMI ENT- oropharynx clear Neck- supple, no JVD Lungs- Poor air entry Heart- regular rhythm Abdomen- normal bowel sounds, soft Extremities- no pretibial edema Neuro- alert, oriented, PERRL, EOMI, follow direction Skin- warm & dry Laboratory Results: Last 24 Hours Test 09/10/17 16:48 09/10/17 18:08 09/10/17 20:19 09/11/17 05:59 Bedside Glucose 107 mg/dl 175 mg/dl Vancomycin Level Trough 19.5 mcg/ml White Blood Count 10.66 K/uL Red Blood Count 3.44 M/uL Hemoglobin 9.8 g/dL Hematocrit 28.7 % Mean Corpuscular Volume 83.4 fL Mean Corpuscular Hemoglobin 28.5 pg Mean Corpuscular Hemoglobin Concent 34.1 g/dl RDW Standard Deviation 42.2 fL RDW Coefficient of Variation 13.9 % Platelet Count 165 K/uL Mean Platelet Volume 10.4 fL Sodium Level 137 mmol/L Potassium Level 3.2 mmol/L Chloride Level 103 mmol/L Carbon Dioxide Level 27 mmol/L Anion Gap 7.0 mmol/L Blood Urea Nitrogen 7 mg/dl Creatinine 0.70 mg/dl Est Creatinine Clear Calc Drug Dose 81.9 ml/min Estimated GFR () 106.1 Estimated GFR (Non- 91.6 BUN/Creatinine Ratio 9.7 Random Glucose 102 mg/dl Calcium Level 7.9 mg/dl Phosphorus Level 1.8 mg/dl Magnesium Level 1.7 mg/dl Total Bilirubin 0.5 mg/dl Direct Bilirubin 0.1 mg/dl Aspartate Amino Transf (AST/SGOT) 12 U/L Alanine Aminotransferase (ALT/SGPT) 11 U/L Alkaline Phosphatase 49 U/L Total Protein 6.6 gm/dl Albumin 2.0 gm/dl Globulin 4.6 gm/dl Albumin/Globulin Ratio 0.4 Test 09/11/17 07:58 09/11/17 12:02 Bedside Glucose 105 mg/dl 166 mg/dl Date/Time Source Procedure Growth Status 09/11/17 05:59 Blood Cryptococcal Antigen - Final Complete Assessment & Plan FEVER Was found unresponsive by family Possible secondary to UTI or bacteremia Doubt about meningitis CT head showed no acute intracranial findings MRI of brain could not be done for AICD CXR does not show any infiltrate or pathology On IV Vanco /Rocephin/Ampicillin, Acyclovir to cover for possible Meningitis Refused LP Denies any headache or neck stiffness Neurology on board ID on board Blood cx positive for gram positive cocci Urine cx positive for enterococcus faecalis Continue current treatment 09/11 Initial blood cx growth coag negative staph not lugdunensis, possible contamination Repeat blood cx no growth No signs or symptoms of meningitis Case discussed with ID and agreed to d/c Ampicillin/Rocephin/Acyclovir No leukocytosis Continue monitor UNRESPONSIVENESS METABOLIC ENCEPHALOPATHY : Need to R/O meningitis Denies any headache and neck stiffness Ammonia level < 10 Tox screen negative for ETOH, alcohol , salicylates,extensive tox screen ordered MRI of brain could not be done due to AICD Continue Neuro check EEG reveals evidence for mild generalized nonspecific abnormalities consistent with an encephalopathy No evidence for potentially epileptogenic activity on EEG Back to baseline Stable URINARY INCONTINENCE No history of seizure and no seizure activity noted Stable AMBULATORY DYSFUNCTION Fall precaution PT/OT evaluation ELECTROLYTES IMBALANCE K3.2 Phos 1.8 K and phos replaced Continue monitor BMP TYPE 2 DM Most recent Hba1c 7.6 (05/31) On Lantus 7 unit BID Monitor BS HTN BP stable Resume Po med in am HX CAD Aspirin has been on hold for the LP Resume asa since pt refused LP FULL CODE DVT PROPHYLAXIS : SCd and teds Will start on heparin subq since pt refused LP DISPOSITION Will discharge once medically stable Medicine follow up with Dr Ramirez Pt's Sister Kumar KYLE # [phone] Consultants: Neuro ID Current Inpatient Medications: Current Inpatient Medications Medications (Trade) Dose Ordered Sig/Tera Route Start Time Stop Time Status Last Admin Dose Admin Magnesium Hydroxide (Milk Of Magnesia Susp) 30 ml Q12H PRN PO 09/08/17 16:00 10/08/17 15:59 Ondansetron HCl (Zofran Inj) 4 mg Q6H PRN IV 09/08/17 16:00 10/08/17 15:59 Glucose (Glucose 40% Gel) 15-30 GRAMS 15 GRAMS... UD PRN PO 09/08/17 16:00 10/08/17 15:59 Glucose (Glucose Chew Tab) 4-8 Tablets 4 Tabl... UD PRN PO 09/08/17 16:00 10/08/17 15:59 Dextrose (Dextrose 50% 50ML Syringe) 25-50ML OF 50% DW IV FOR... UD PRN IV 09/08/17 16:00 10/08/17 15:59 Glucagon (Glucagon Inj) 1 mg UD PRN SQ 09/08/17 16:00 10/08/17 15:59 Ceftriaxone Sodium 2000 mg/ Dextrose 70 ml @ 100 mls/hr Q12H IV 09/09/17 03:00 09/19/17 02:59 09/11/17 14:42 100 MLS/HR Miscellaneous Information (Consult) 1 ea UD PRN N/A 09/08/17 16:15 10/08/17 16:14 Acyclovir Sodium 500 mg/Dextrose 110 ml @ 100 mls/hr Q8H IV 09/08/17 18:00 09/18/17 17:59 09/11/17 09:47 100 MLS/HR Ampicillin Sodium 2000 mg/Sodium Chloride 100 ml @ 100 mls/hr Q6H IV 09/08/17 22:00 09/18/17 21:59 09/11/17 15:43 100 MLS/HR Acetaminophen 100 ml @ 400 mls/hr Q8H PRN IV 09/08/17 22:00 10/08/17 21:59 09/10/17 20:04 400 MLS/HR Insulin Glargine (Lantus Solostar Pen) 7 units BID SC 09/09/17 09:00 10/09/17 08:59 09/11/17 08:32 7 UNITS Vancomycin HCl 1250 mg/Sodium Chloride 275 ml @ 125 mls/hr Q18H IV 09/11/17 12:00 09/21/17 11:59 09/11/17 12:19 125 MLS/HR
[2017-09-11] MEDS: METOPROLOL SUCC 50MG EXT REL TAB PO SCH (21:01)
[2017-09-11] MEDS: CLOPIDOGREL BISULFATE 75 MG TAB PO SCH (21:01)
[2017-09-11] MEDS: HEPARIN SOD 5000 UNIT/0.5 ML CARP SQ SCH (21:11)
[2017-09-12] VITALS (8 sets, daily range): BP systolic 138–152; BP diastolic 67–83; PULSE 59–83; TEMP 36.7–37.5; O2SAT 95–98
[2017-09-12] MEDS: VANCOMYCIN INJ 1,250 MG in SODIUM CHLORIDE 0.9% 250ML 250 ML IV SCH (05:42)
[2017-09-12] MEDS: HEPARIN SOD 5000 UNIT/0.5 ML CARP SQ SCH ×3 (05:46→21:32)
[2017-09-12 06:38] LABS: HEMATOCRIT 28.1 % (37-47); HEMOGLOBIN 9.4 g/dL (12.0-16.0); MEAN CELL VOLUME 83.1 fL (80-100); MEAN CORPUSCULAR HEMOGLOBIN 27.8 pg (25-34); MEAN CORPUSCULAR HGB CONC 33.5 g/dl (32-36); MEAN PLATELET VOLUME 9.8 fL (7.4-10.4); PLATELET COUNT 195 K/uL (130-400); RED CELL DISTRIBUTION WIDTH CV 13.8 % (11.5-14.5); RED CELL DISTRIBUTION WIDTH SD 41.8 fL (36.4-46.3); WHITE BLOOD COUNT 7.37 K/uL (4.8-10.8)
[2017-09-12 07:14] LABS: CALCIUM 8.4 mg/dl (8.5-10.1); CREATININE 0.72 mg/dl (0.60-1.20); POTASSIUM 3.3 mmol/L (3.5-5.1)
[2017-09-12 07:15] LABS: PHOSPHORUS 2.6 mg/dl (2.5-4.9)
[2017-09-12] MEDS: ASPIRIN 81 MG ECTAB PO SCH (07:33)
[2017-09-12] MEDS: METOPROLOL SUCC 50MG EXT REL TAB PO SCH ×2 (07:34→21:29)
[2017-09-12] MEDS: ESCITALOPRAM OXALATE 10 MG TAB PO SCH (07:34)
[2017-09-12] MEDS: INSULIN GLARGINE SOLOSTAR 100 UNITS/ML 3 ML PEN SC SCH ×2 (07:42→21:31)
[2017-09-12] MEDS ORDERED: POTASSIUM CHLORIDE 20 MEQ TABCR PO ONE (10:00)
--- NOTE | 2017-09-12 21:09 | Progress Note ---
Medicine Progress Note Date & Time of Visit: Sep 12, 2017 at 21:09. Subjective Pt was seen and examined Sitting in chair comfortable with no distress Denies any complaints Objective Last 8 Hrs Date Time Temp Pulse Resp B/P (MAP) Pulse Ox O2 Delivery O2 Flow Rate FiO2 09/12/17 16:00 Room Air 09/12/17 16:00 36.9 65 20 138/74 (95) 97 Room Air Physical Exam: General- No acute distress Head- atraumatic Eyes- PERRL, EOMI ENT- oropharynx clear Neck- supple, no JVD Lungs- Poor air entry Heart- regular rhythm Abdomen- normal bowel sounds, soft Extremities- no pretibial edema Neuro- alert, oriented, PERRL, EOMI, follow direction Skin- warm & dry Laboratory Results: Last 24 Hours Test 09/12/17 06:25 09/12/17 07:29 09/12/17 11:25 09/12/17 20:20 White Blood Count 7.37 K/uL Red Blood Count 3.38 M/uL Hemoglobin 9.4 g/dL Hematocrit 28.1 % Mean Corpuscular Volume 83.1 fL Mean Corpuscular Hemoglobin 27.8 pg Mean Corpuscular Hemoglobin Concent 33.5 g/dl RDW Standard Deviation 41.8 fL RDW Coefficient of Variation 13.8 % Platelet Count 195 K/uL Mean Platelet Volume 9.8 fL Sodium Level 138 mmol/L Potassium Level 3.3 mmol/L Chloride Level 104 mmol/L Carbon Dioxide Level 28 mmol/L Anion Gap 6.0 mmol/L Blood Urea Nitrogen 6 mg/dl Creatinine 0.72 mg/dl Est Creatinine Clear Calc Drug Dose 79.6 ml/min Estimated GFR () 102.6 Estimated GFR (Non- 88.5 BUN/Creatinine Ratio 7.9 Random Glucose 143 mg/dl Calcium Level 8.4 mg/dl Phosphorus Level 2.6 mg/dl Magnesium Level 1.9 mg/dl Bedside Glucose 138 mg/dl 158 mg/dl 214 mg/dl Assessment & Plan FEVER Was found unresponsive by family Possible secondary to UTI or bacteremia Doubt about meningitis CT head showed no acute intracranial findings MRI of brain could not be done for AICD CXR does not show any infiltrate or pathology On IV Vanco /Rocephin/Ampicillin, Acyclovir to cover for possible Meningitis Refused LP Denies any headache or neck stiffness Neurology on board ID on board Blood cx positive for gram positive cocci Urine cx positive for enterococcus faecalis Continue current treatment 09/12 Initial blood cx growth coag negative staph not lugdunensis, possible contamination Repeat blood cx no growth No signs or symptoms of meningitis Case discussed with ID and agreed to d/c Ampicillin/Rocephin/Acyclovir No leukocytosis Continue monitor UNRESPONSIVENESS METABOLIC ENCEPHALOPATHY : Need to R/O meningitis Denies any headache and neck stiffness Ammonia level < 10 Tox screen negative for ETOH, alcohol , salicylates,extensive tox screen ordered MRI of brain could not be done due to AICD Continue Neuro check EEG reveals evidence for mild generalized nonspecific abnormalities consistent with an encephalopathy No evidence for potentially epileptogenic activity on EEG Back to baseline Stable URINARY INCONTINENCE No history of seizure and no seizure activity noted Stable AMBULATORY DYSFUNCTION Fall precaution PT/OT evaluation ELECTROLYTES IMBALANCE K3.3 K replaced Continue monitor BMP TYPE 2 DM Most recent Hba1c 7.6 (05/31) On Lantus 7 unit BID Monitor BS HTN BP stable Resume Po med in am HX CAD Aspirin has been on hold for the LP Resume asa since pt refused LP FULL CODE DVT PROPHYLAXIS : SCd and teds On heparin subq since pt refused LP DISPOSITION Will discharge once medically stable Medicine follow up with Dr Ramirez Pt's Sister Kumar ENCINASA # [phone] Consultants: Neuro ID Current Inpatient Medications: Current Inpatient Medications Medications (Trade) Dose Ordered Sig/Tera Route Start Time Stop Time Status Last Admin Dose Admin Magnesium Hydroxide (Milk Of Magnesia Susp) 30 ml Q12H PRN PO 09/08/17 16:00 10/08/17 15:59 Ondansetron HCl (Zofran Inj) 4 mg Q6H PRN IV 09/08/17 16:00 10/08/17 15:59 Glucose (Glucose 40% Gel) 15-30 GRAMS 15 GRAMS... UD PRN PO 09/08/17 16:00 10/08/17 15:59 Glucose (Glucose Chew Tab) 4-8 Tablets 4 Tabl... UD PRN PO 09/08/17 16:00 10/08/17 15:59 Dextrose (Dextrose 50% 50ML Syringe) 25-50ML OF 50% DW IV FOR... UD PRN IV 09/08/17 16:00 10/08/17 15:59 Glucagon (Glucagon Inj) 1 mg UD PRN SQ 09/08/17 16:00 10/08/17 15:59 Miscellaneous Information (Consult) 1 ea UD PRN N/A 09/08/17 16:15 10/08/17 16:14 Acetaminophen 100 ml @ 400 mls/hr Q8H PRN IV 09/08/17 22:00 10/08/17 21:59 09/10/17 20:04 400 MLS/HR Insulin Glargine (Lantus Solostar Pen) 7 units BID SC 09/09/17 09:00 10/09/17 08:59 09/12/17 07:42 7 UNITS Vancomycin HCl 1250 mg/Sodium Chloride 275 ml @ 125 mls/hr Q18H IV 09/11/17 12:00 09/21/17 11:59 09/12/17 05:42 125 MLS/HR Aspirin (Ecotrin Tab) 81 mg QAM PO 09/12/17 09:00 10/12/17 08:59 09/12/17 07:33 81 MG Clopidogrel Bisulfate (plAVix TAB) 75 mg HS PO 09/11/17 21:00 10/11/17 20:59 09/11/17 21:01 75 MG Escitalopram Oxalate (Lexapro Tab) 15 mg QAM PO 09/12/17 09:00 10/12/17 08:59 09/12/17 07:34 15 MG Metoprolol Succinate (Toprol Xl Tab) 50 mg BID PO 09/11/17 21:00 10/11/17 20:59 09/12/17 07:34 50 MG Heparin Sodium (Porcine) (Heparin Sq 5000 Unit/0.5ml) 5,000 unit Q8@0600,1400,2200 SQ 09/11/17 22:00 10/11/17 21:59 09/12/17 13:29 5,000 UNIT
[2017-09-12] MEDS: CLOPIDOGREL BISULFATE 75 MG TAB PO SCH (21:29)
[2017-09-13] MEDS: VANCOMYCIN INJ 1,250 MG in SODIUM CHLORIDE 0.9% 250ML 250 ML IV SCH (00:20)
[2017-09-13 04:43] VITALS: BP 150/54; PULSE 60; TEMP 36.3; O2SAT 96
[2017-09-13] MEDS: HEPARIN SOD 5000 UNIT/0.5 ML CARP SQ SCH ×2 (05:36→13:13)
[2017-09-13 06:41] LABS: CALCIUM 8.7 mg/dl (8.5-10.1); CREATININE 0.73 mg/dl (0.60-1.20); POTASSIUM 3.4 mmol/L (3.5-5.1)
[2017-09-13 07:27] VITALS: BP 153/84; PULSE 59; TEMP 36.6; O2SAT 97
[2017-09-13] MEDS ORDERED: POTASSIUM CHLORIDE 20 MEQ TABCR PO ONE (08:15)
[2017-09-13] MEDS: METOPROLOL SUCC 50MG EXT REL TAB PO SCH (08:19)
[2017-09-13] MEDS: ESCITALOPRAM OXALATE 10 MG TAB PO SCH (08:20)
[2017-09-13] MEDS: ASPIRIN 81 MG ECTAB PO SCH (08:20)
[2017-09-13] MEDS: INSULIN GLARGINE SOLOSTAR 100 UNITS/ML 3 ML PEN SC SCH (08:26)
[2017-09-13 11:36] VITALS: BP 145/82; PULSE 62; TEMP 36.9; O2SAT 98
[2017-09-13] MEDS ORDERED: AMOXICILLIN 500 MG CAP PO ONE (14:30)
--- NOTE | 2017-09-13 14:33 | Progress Note ---
Medicine Progress Note Date & Time of Visit: Sep 13, 2017 at 14:24. Subjective Pt was seen and examined Sitting in chair with no distress Pt said that she feels good She said that she ate all her food She denies any chest pain, palpitation, dizziness and sob Objective Last 8 Hrs Date Time Temp Pulse Resp B/P (MAP) Pulse Ox O2 Delivery O2 Flow Rate FiO2 09/13/17 12:00 Room Air 09/13/17 11:36 36.9 62 18 145/82 (103) 98 09/13/17 08:00 Room Air 09/13/17 07:27 36.6 59 18 153/84 (107) 97 Room Air Physical Exam: General- No acute distress Head- atraumatic Eyes- PERRL, EOMI ENT- oropharynx clear Neck- supple, no JVD Lungs- Poor air entry Heart- regular rhythm Abdomen- normal bowel sounds, soft Extremities- no pretibial edema Neuro- alert, oriented, PERRL, EOMI, follow direction Skin- warm & dry Laboratory Results: Last 24 Hours Test 09/12/17 20:20 09/13/17 05:20 09/13/17 07:36 09/13/17 11:34 Bedside Glucose 214 mg/dl 136 mg/dl 212 mg/dl Sodium Level 139 mmol/L Potassium Level 3.4 mmol/L Chloride Level 103 mmol/L Carbon Dioxide Level 29 mmol/L Anion Gap 7.0 mmol/L Blood Urea Nitrogen 6 mg/dl Creatinine 0.73 mg/dl Est Creatinine Clear Calc Drug Dose 78.7 ml/min Estimated GFR () 100.9 Estimated GFR (Non- 87.0 BUN/Creatinine Ratio 7.8 Random Glucose 154 mg/dl Calcium Level 8.7 mg/dl Assessment & Plan FEVER Was found unresponsive by family Possible secondary to UTI or bacteremia Doubt about meningitis CT head showed no acute intracranial findings MRI of brain could not be done for AICD CXR does not show any infiltrate or pathology On IV Vanco /Rocephin/Ampicillin, Acyclovir to cover for possible Meningitis Refused LP Denies any headache or neck stiffness Neurology on board ID on board Blood cx positive for gram positive cocci Urine cx positive for enterococcus faecalis Continue current treatment 09/13 Initial blood cx growth coag negative staph not lugdunensis, possible contamination Repeat blood cx no growth No signs or symptoms of meningitis Case discussed with ID and agreed to d/c Ampicillin/Rocephin/Acyclovir No leukocytosis Continue monitor UTI Urine cx positive for enterococcus faecalis Received IV Vanco for 5 days Changed abx to amoxicillin to complete 2 more days course Stable UNRESPONSIVENESS METABOLIC ENCEPHALOPATHY : Need to R/O meningitis Denies any headache and neck stiffness Ammonia level < 10 Tox screen negative for ETOH, alcohol , salicylates,extensive tox screen ordered MRI of brain could not be done due to AICD Continue Neuro check EEG reveals evidence for mild generalized nonspecific abnormalities consistent with an encephalopathy No evidence for potentially epileptogenic activity on EEG Back to baseline Stable URINARY INCONTINENCE No history of seizure and no seizure activity noted Stable AMBULATORY DYSFUNCTION Fall precaution PT/OT evaluation ELECTROLYTES IMBALANCE K 3.4 K replaced Continue monitor BMP TYPE 2 DM Most recent Hba1c 7.6 (05/31) On Lantus 7 unit BID Monitor BS HTN BP stable Resume Po med in am HX CAD Aspirin has been on hold for the LP Resume asa since pt refused LP FULL CODE DVT PROPHYLAXIS : SCd and teds On heparin subq since pt refused LP DISPOSITION Will discharge once medically stable Medicine follow up with Dr Ramirez Pt's Sister Kumar WRIGHT # [phone] Consultants: Neuro ID Current Inpatient Medications: Current Inpatient Medications Medications (Trade) Dose Ordered Sig/Tera Route Start Time Stop Time Status Last Admin Dose Admin Magnesium Hydroxide (Milk Of Magnesia Susp) 30 ml Q12H PRN PO 09/08/17 16:00 10/08/17 15:59 Ondansetron HCl (Zofran Inj) 4 mg Q6H PRN IV 09/08/17 16:00 10/08/17 15:59 Glucose (Glucose 40% Gel) 15-30 GRAMS 15 GRAMS... UD PRN PO 09/08/17 16:00 10/08/17 15:59 Glucose (Glucose Chew Tab) 4-8 Tablets 4 Tabl... UD PRN PO 09/08/17 16:00 10/08/17 15:59 Dextrose (Dextrose 50% 50ML Syringe) 25-50ML OF 50% DW IV FOR... UD PRN IV 09/08/17 16:00 10/08/17 15:59 Glucagon (Glucagon Inj) 1 mg UD PRN SQ 09/08/17 16:00 10/08/17 15:59 Miscellaneous Information (Consult) 1 ea UD PRN N/A 09/08/17 16:15 10/08/17 16:14 Acetaminophen 100 ml @ 400 mls/hr Q8H PRN IV 09/08/17 22:00 10/08/17 21:59 09/10/17 20:04 400 MLS/HR Insulin Glargine (Lantus Solostar Pen) 7 units BID SC 09/09/17 09:00 10/09/17 08:59 09/13/17 08:26 7 UNITS Vancomycin HCl 1250 mg/Sodium Chloride 275 ml @ 125 mls/hr Q18H IV 09/11/17 12:00 09/21/17 11:59 Future Hold 09/13/17 00:20 125 MLS/HR Aspirin (Ecotrin Tab) 81 mg QAM PO 09/12/17 09:00 10/12/17 08:59 09/13/17 08:20 81 MG Clopidogrel Bisulfate (plAVix TAB) 75 mg HS PO 09/11/17 21:00 10/11/17 20:59 09/12/17 21:29 75 MG Escitalopram Oxalate (Lexapro Tab) 15 mg QAM PO 09/12/17 09:00 10/12/17 08:59 09/13/17 08:20 15 MG Metoprolol Succinate (Toprol Xl Tab) 50 mg BID PO 09/11/17 21:00 10/11/17 20:59 09/12/17 21:29 50 MG Heparin Sodium (Porcine) (Heparin Sq 5000 Unit/0.5ml) 5,000 unit Q8@0600,1400,2200 SQ 09/11/17 22:00 10/11/17 21:59 09/13/17 05:36 5,000 UNIT Amoxicillin (Amoxil Cap) 500 mg BID PO 09/13/17 21:00 09/23/17 20:59 UNV Amoxicillin (Amoxil Cap) 500 mg 1420 ONCE PO 09/13/17 14:20 09/13/17 14:21 UNV
[2017-09-13] MEDS ORDERED: DOCU-94 PO (15:09)
[2017-09-13] MEDS ORDERED: CLBPO15 TOP (15:09)
[2017-09-13] MEDS ORDERED: CYCL0.052 OP (15:09)
[2017-09-13] MEDS ORDERED: MAGN1SOL7 PO (15:09)
[2017-09-13] MEDS ORDERED: CICL8SOL4 TOP (15:09)
[2017-09-13] MEDS ORDERED: METR0.754 TOP (15:09)
[2017-09-13] MEDS ORDERED: SENN-65 PO (15:09)
[2017-09-13] MEDS ORDERED: TRMCR130WC TOP (15:09)
[2017-09-13] MEDS ORDERED: NVLGIPEN SQ (15:09)
[2017-09-13] MEDS ORDERED: MENTOIN TOP (15:09)
[2017-09-13] MEDS ORDERED: NTRGSL/4 UT (15:09)
[2017-09-13] MEDS ORDERED: KETO2SHA TOP (15:09)
[2017-09-13] MEDS ORDERED: FLVHFA110 INH (15:09)
[2017-09-13] MEDS ORDERED: HYDR-3292 TOP (15:09)
[2017-09-13] MEDS ORDERED: LACTCAP8 PO (15:09)
[2017-09-13] MEDS ORDERED: ATR25 PO (15:09)
[2017-09-13] MEDS ORDERED: PANT40TA2 PO (15:09)
[2017-09-13] MEDS ORDERED: MRLP17X PO (15:09)
[2017-09-13] MEDS ORDERED: ONDA4TAB10 SL (15:09)
[2017-09-13] MEDS ORDERED: VNTHFA/IN INH (15:09)
[2017-09-13] MEDS ORDERED: INSDGI SC (15:09)
[2017-09-13] MEDS ORDERED: AMX500 PO (15:12)
--- NOTE | 2017-09-13 15:22 | Discharge Instructions ---
Discharge Instructions Date of Service Sep 13, 2017. Admission Reason for Admission: Altered Mental State Discharge Discharge Diagnosis / Problem: UNRESPONSIVENESS , Urinary tract infection Discharge Goals Goal(s): Decrease discomfort, Improve function, Improve disease control Activity Recommendations Activity Limitations: resume your previous activity (as tolerated) . Instructions / Follow-Up Instructions / Follow-Up Follow up with your primary care provider Ashley Shen on 09/19 @ 10:45 am Continue physical therapy Fall precaution Monitor blood sugar and follow a low carb diet and limited concentrated sweet Complete course of antibiotic with amoxicillin for 2 days Increase potassium intake in diet Check BMP within 1 week to monitor electrolytes. Current Hospital Diet Patient's current hospital diet: Diabetes Type 2 Diet Discharge Diet Recommended Diet: Diabetes Type 2 Diet Pending Studies Studies pending at discharge: no Medical Emergencies . Who to Call and When: Medical Emergencies: If at any time you feel your situation is an emergency, please call 911 immediately. . Non-Emergent Contact Non-Emergency issues call your: Primary Care Provider Call Non-Emergent contact if: you have a fever, you have any medication questions . . "Provider Documentation" section prepared by Alistair Machado. .
[2017-09-13] MEDS ORDERED: MCRK20 PO (15:26)
[2017-09-13 16:05] VITALS: BP 145/82; PULSE 62; TEMP 36.9; O2SAT 98
[2017-09-13] MEDS ORDERED: VANCOMYCIN TROUGH ONE (17:30)
[2017-09-13] MEDS ORDERED: AMOXICILLIN 500 MG CAP PO SCH (21:00)
--- NOTE | 2017-09-15 07:54 | Discharge Summary ---
Discharge Summary Date of Service Sep 15, 2017. Discharge Summary Admission Date: Sep 08, 2017 at 15:24 Discharge Date: Sep 13, 2017 Discharge Disposition: Home with services Principal Diagnosis: UNRESPONSIVENESS FEVER Secondary Diagnoses/Problems: UTI METABOLIC ENCEPHALOPATHY AMBULATORY DYSFUNCTION ELECTROLYTES IMBALANCE TYPE 2 DM HTN URINARY INCONTINENCE CAD Procedures: [~ rep ct add3]] CT HEAD WITHOUT CONTRAST (CT) CLINICAL HISTORY: Altered mental status WEAKNESS COMPARISON STUDY: 06/14/2017 TECHNIQUE: Axial CT of the brain is performed from the vertex to the skull base. IV contrast was not administered for this examination. A dose lowering technique was utilized adhering to the principles of ALARA. CT DOSE: 601.98 mGy.cm FINDINGS: No intra or extra-axial mass lesions are visualized. There is no CT evidence of acute cortical infarction. There is no evidence of midline shift. There is no acute hemorrhage. No calvarial fractures are visualized. There are patchy white matter hypodensities likely on a small vessel basis. Mild particular prominence remains unchanged. There is no evidence of acute sinusitis IMPRESSION: No acute intracranial findings Electronically signed by: Chau Meyers M.D. 09/08/2017 12:48 PM Dictated Date/Time: 09/08/2017 12:46 PM CHEST ONE VIEW PORTABLE CLINICAL HISTORY: Fever. Unresponsive episode. COMPARISON STUDY: 05/21/2017 FINDINGS: The cardiac and mediastinal contours remain stable. There are postsurgical changes of a midline sternotomy. There is a left subclavian pacer/defibrillator present. There is no failure. There there is no focal pulmonary consolidation. There are no pleural effusions. IMPRESSION: No active disease in the chest. Electronically signed by: Chau Meyers M.D. 09/08/2017 12:29 PM Dictated Date/Time: 09/08/2017 12:29 PM Consultations: Neuro ID Medication Reconciliation New Medications: Potassium Chloride (Klor-Con M20) 20 Meq Tabcr 20 MEQ PO DAILY for 7 Days, #7 TAB Amoxicillin (Amoxicillin) 500 Mg Cap 500 MG PO BID for 2 Days, #4 CAP Continued Medications: Albuterol Hfa (Ventolin Hfa) 200 Puffs/24955 Mcg Aers 2 PUFFS INH Q4H PRN for Wheezing, #1 INHALER Aspirin (Aspirin Ec) 81 Mg Tab 81 MG PO QAM Ciclopirox (Ciclopirox Nail Lacquer) 8 % Tierra TOP UD, #6.6 ML 6 Refills apply to affected toenails Clobetasol Propionate (Clobetasol Propionate) 45 Appln/15 Gm Oint 1 APPLN TOP DAILY, GM 2 Refills Clopidogrel Bisulfate (Plavix) 75 Mg Tab 75 MG PO HS Cyclosporine (Ophth) (Restasis) 0.05 % Emu 1 DROPS OP BID, VIAL 3 Refills 1 drop into affected eye Docusate Sodium (Docusate Sodium) 100 Mg Cap 100 MG PO DAILY Docusate Sodium (Colace) 100 Mg Cap 100 MG PO BID PRN for Constipation, CAP Escitalopram Oxalate (Lexapro) 10 Mg Tab 15 MG PO QAM, TAB Fluticasone Propionate (Flovent Hfa) 120 Puffs/24686 Mcg Aero 2 PUFFS INH BID, #1 INHALER 2 Refills Hydroquinone (Tl Hydroquinone) 4 % Cre 1 APPLN TOP BID, GM 2 Refills Insulin Aspart (Novolog Flexpen) Unknown Strength Inj Unknown Dose Insulin Glargine (Lantus) 100 Unit/Ml Inj 20 UNIT SC BID, VIAL Ketoconazole (Topical) (Ketoconazole) 2 % Sha 1 APPLN TOP DAILY for 30 Days, #120 ML 3 Refills Lactobacillus (Acidophilus Extra Strengt) 1 Cap Cap 1 CAP PO DAILY Magnesium Citrate (Magnesium Citrate) 1.745 Gm/30 Ml Tierra 120 ML PO DAILY PRN for Constipation Menthol-Zinc Oxide (Calmoseptine) 1 Oin Oin 1 APPL TOP Q8 PRN for rectal pain Metoprolol Succinate (Metoprolol Succinate ER) 50 Mg Tabcr 50 MG PO BID Metronidazole (Topical) (Metrocream) 0.75 % Cre TOP DAILY, #45 GM 3 Refills Nitroglycerin (Nitrostat) 0.4 Mg Tab 0.4 MG UT PRN, BTL 1 tablet every 5 minutes as needed for chest pain up to 3 doses in 15 minutes. Ondasetron Odt (Zofran Odt) 4 Mg Tab 4 MG SL Q8 for Nausea, #6 TAB Pantoprazole (Pantoprazole Sodium) 40 Mg Tab 1 TAB PO DAILY Polyethylene (Miralax) 17 Gm Pow 17 GM PO DAILY PRN for Constipation, BTL Senna/Docusate Sod (Senokot S) 1 Tab Tab 1 TAB PO DAILY PRN for Constipation, TAB Triamcinolone Acet (Aristocort 0.1%) 90 Appln/30 Gm Cr 1 APPL TOP BID to affected area Discontinued Medications: Hydroxyzine HCl (Hydroxyzine HCl) 25 Mg Tab 1.5 TAB PO HS Admission Information HPI (per Admitting provider): This a 62 yo F with complex past medical hx of Type 2 DM on insulin , hx of CAD s/p CABG , Vfib cardiac arrest x2 s/p AICD placement , CKD stage 3, diabetic gastroparesis , diabetic neuropathy , chronic diastolic CHF , SACHA -pt is brought to ER via EMS - as family found her at home being febrile , minimally responsive pt remains obtunded , information obtained form Sister Kumar over Phone Yesterday -pt was had normal activity , went to baseball game with sister and Niece , prior to coming to home , pt was complaining of chills , walking more wobbly , needed a lot of assistance to get into car pt did not report of any fever /headache -other than feeling very tired as they returned home this morning around 11 am Pt's niece went to visit her -found her still sleeping in bed -which is unusual for her pt opened eyes briefly as the niece was calling her name , but there was not recognition her sister arrived few minutes later pt had wet her bed , as they tried to get her to bathroom -pt was a deadweight , slumped over like a doll 911 was called in ER , pt was febrile Temp 38-39 /remains minimally responsive , opens eyes to sternal rub Physical Exam (per Admitting): General Appearance: + obese Head: normocephalic, atraumatic Eyes: + pertinent finding (bilat pupils reactive to light ) Respiratory/Chest: lungs clear Cardiovascular: regular rate, rhythm Abdomen/GI: soft Extremities/Musculoskelatal: no pedal edema Neurologic/Psych: + pertinent finding (obtunded /opens eyes briefly to voice and sternal rub /no facial droop noted ) Hospital Course FEVER Was found unresponsive by family Possible secondary to UTI or bacteremia Doubt about meningitis CT head showed no acute intracranial findings MRI of brain could not be done for AICD CXR does not show any infiltrate or pathology On IV Vanco /Rocephin/Ampicillin, Acyclovir to cover for possible Meningitis Refused LP Denies any headache or neck stiffness Neurology on board ID on board Blood cx positive for gram positive cocci Urine cx positive for enterococcus faecalis Continue current treatment 3/2 Initial blood cx growth coag negative staph not lugdunensis, possible contamination Repeat blood cx no growth No signs or symptoms of meningitis Case discussed with ID and agreed to d/c Ampicillin/Rocephin/Acyclovir No leukocytosis Continue monitor UTI Urine cx positive for enterococcus faecalis Received IV Vanco for 5 days Changed abx to amoxicillin to complete 2 more days course Stable UNRESPONSIVENESS METABOLIC ENCEPHALOPATHY : Need to R/O meningitis Denies any headache and neck stiffness Ammonia level < 10 Tox screen negative for ETOH, alcohol , salicylates,extensive tox screen ordered MRI of brain could not be done due to AICD Continue Neuro check EEG reveals evidence for mild generalized nonspecific abnormalities consistent with an encephalopathy No evidence for potentially epileptogenic activity on EEG Back to baseline Stable URINARY INCONTINENCE No history of seizure and no seizure activity noted Stable AMBULATORY DYSFUNCTION Fall precaution PT/OT evaluation ELECTROLYTES IMBALANCE K 3.4 K replaced Continue monitor BMP TYPE 2 DM Most recent Hba1c 7.6 (05/31) On Lantus 7 unit BID Monitor BS HTN BP stable Resume Po med in am HX CAD Aspirin has been on hold for the LP Resume asa since pt refused LP FULL CODE DVT PROPHYLAXIS : SCd and teds On heparin subq since pt refused LP DISPOSITION Will discharge once medically stable Medicine follow up with Dr Ramirez Pt's Sister Kumar WRIGHT # [phone] Total time spent on discharge = 35 MINUTES This includes examination of the patient, discharge planning, medication reconciliation, and communication with other providers. Discharge Instructions Discharge Instructions Date of Service Sep 13, 2017. Admission Reason for Admission: Altered Mental State Discharge Discharge Diagnosis / Problem: UNRESPONSIVENESS , Urinary tract infection Discharge Goals Goal(s): Decrease discomfort, Improve function, Improve disease control Activity Recommendations Activity Limitations: resume your previous activity (as tolerated) . Instructions / Follow-Up Instructions / Follow-Up Follow up with your primary care provider Ashley Shen on 09/19 @ 10:45 am Continue physical therapy Fall precaution Monitor blood sugar and follow a low carb diet and limited concentrated sweet Complete course of antibiotic with amoxicillin for 2 days Increase potassium intake in diet Check BMP within 1 week to monitor electrolytes. Current Hospital Diet Patient's current hospital diet: Diabetes Type 2 Diet Discharge Diet Recommended Diet: Diabetes Type 2 Diet Pending Studies Studies pending at discharge: no Medical Emergencies . Who to Call and When: Medical Emergencies: If at any time you feel your situation is an emergency, please call 911 immediately. . Non-Emergent Contact Non-Emergency issues call your: Primary Care Provider Call Non-Emergent contact if: you have a fever, you have any medication questions . . "Provider Documentation" section prepared by Alistair Machado. . Additional Copies To Reginaldo Ramirez D.O.
== END 2017-09-13 16:30 | disposition home health service (06) | DRG 689 ==
LOC: EDBD 11:14 → C.EDB 11:15 → C.MED 15:24 → ENRESERV 15:43
PROVIDERS: ADMIT Hospitalist; ATTEND Internal Medicine
DX: N39.0 Urinary tract infection, site not specified (principal); G93.41 Metabolic encephalopathy; E87.1 Hypo-osmolality and hyponatremia; I50.22 Chronic systolic (congestive) heart failure; I13.0 Hypertensive heart and chronic kidney disease with heart failure and stage 1 through stage 4 chronic kidney disease, or unspecified chronic kidney disease; B95.2 Enterococcus as the cause of diseases classified elsewhere; R26.2 Difficulty in walking, not elsewhere classified; R32 Unspecified urinary incontinence; E11.22 Type 2 diabetes mellitus with diabetic chronic kidney disease; N18.3 Chronic kidney disease, stage 3 (moderate); I25.10 Atherosclerotic heart disease of native coronary artery without angina pectoris; E11.42 Type 2 diabetes mellitus with diabetic polyneuropathy; E11.43 Type 2 diabetes mellitus with diabetic autonomic (poly)neuropathy; J45.909 Unspecified asthma, uncomplicated; F32.9 Major depressive disorder, single episode, unspecified; Z79.899 Other long term (current) drug therapy; Z79.4 Long term (current) use of insulin; Z79.82 Long term (current) use of aspirin; Z95.1 Presence of aortocoronary bypass graft; Z95.810 Presence of automatic (implantable) cardiac defibrillator; Z86.74 Personal history of sudden cardiac arrest; Z68.34 Body mass index [BMI] 34.0-34.9, adult; Z87.891 Personal history of nicotine dependence; Z88.5 Allergy status to narcotic agent; Z88.8 Allergy status to other drugs, medicaments and biological substances; Z91.030 Bee allergy status; Z83.3 Family history of diabetes mellitus; Z82.49 Family history of ischemic heart disease and other diseases of the circulatory system; Z84.1 Family history of disorders of kidney and ureter

== ENCOUNTER 2017-09-15 11:30 | Emergency (ER) | payer OTHER ==
[~2017-09-15] VITALS: Ht 157.5 cm; Wt 93.1 kg
[~2017-09-15 11:30] MED LIST changes: +AMX500 PO; +CICL8SOL4 TOP; +CLBPO15 TOP; -CMP5 PO; +DOCU-94 PO; +FLVHFA110 INH; +HYDR-3292 TOP; +INSDGI SC; -ISOS30TA35 PO; +LACTCAP8 PO; -LISI-729 PO; -LPT40 PO; -LSN5 PO; +MAGN1SOL7 PO; +MCRK20 PO; +MENTOIN TOP; +METR0.754 TOP; +MRLP17X PO; -NVLGI/PEN SC; +NVLGIPEN SQ; +ONDA4TAB10 SL; -PANT40TA PO; +PANT40TA2 PO; -POLY335019 PO; +SENN-65 PO; -SENN1TAB65 PO; +TRMCR130WC TOP
[2017-09-15 11:38] VITALS: TEMP 36.5; Ht 157.5 cm; Wt 93.1 kg
[2017-09-15] MEDS ORDERED: OPTIRAY 320 IV PRN (12:30)
--- NOTE | 2017-09-15 12:43 | EMERGENCY ROOM VISIT NOTE ---
History Report prepared by Melanie: Javier Cage Under the Supervision of: Dr. Ted Tomas M.D. First contact with patient: 12:05 Chief Complaint: WEAKNESS Stated Complaint: WEAKNESS History of Present Illness The patient is a 62 year old female who presents to the Emergency Room with complaints of constant weakness that began this morning. The patient states that she was recently in the ED for a UTI. She reports she was admitted on September 08 and was released on September 13. The patient states that she was slightly fatigued yesterday but was mostly back to normal. She states that she was able to finish her antibiotics this morning. The patient reports today she started to experience weakness and a headache. The patient states that she has not been able to lift her right leg or use her walker due to the severity of her weakness. She reports that she has also been febrile today, which caused her to take Tylenol. The patient also reports she is currently experiencing abdominal discomfort. The patient denies nausea, vomiting, cough, congestion, dizziness, and vision changes. *The patient's EMR was reviewed. The patient has a history of Diabetes Mellitus type 2, S/P CABG, AICD placement, stage 3 CKD, gastroparesis, Diabetic neuropathy, chronic diastolic heart failure, and sleep apnea. She was seen here on September 08 due to unresponsiveness believed to be secondary to UTI. Her blood cultures were positive for Gram positive cocci and her urine culture was positive for enterococcus. However, they questioned that the blood culture was contaminated. A repeat culture was done with no growth. Ampicillin/Rocephin/ Acyclovir were discontinued per ID recommendations. She received Vancomycin IV for 5 days and was discharged with 2 more days of Amoxicillin. Patient is poor historian. *confirmed with sister at home, right leg weakness has been going on for 2 years. Source of History: patient Onset: this morning Position: other (global) Quality: other (weakness) Timing: constant Modifying Factors (Relieving): tylenol Associated Symptoms: + fevers, + headache, + abdominal pain, No cough, No nausea, No vomiting Review of Systems See HPI for pertinent positives and negatives. A total of ten systems were reviewed and were otherwise negative. Past Medical & Surgical Medical Problems: (1) Abdominal pain (2) SABRINA (acute kidney injury) (3) Altered mental state (4) Ambulatory dysfunction (5) Aortocoronary Bypass (6) Asthma, Unspecified (7) CKD (chronic kidney disease), stage III (8) Coronary atherosclerosis of [place] coronary vessel (9) Depression (10) Diab Nany Wo Compl, Type Ii Or Unspec Type, Not Uncntrld (11) Diabetic nephropathy (12) Diabetic retinopathy (13) Dizziness (14) GERD (gastroesophageal reflux disease) (15) Hypertension Nos (16) Neuropathy in diabetes (17) Obesity, Class II, BMI 35-39.9, with comorbidity (18) Obstructive Sleep Apnea (Adult) (Pediatric) (19) Osteoarthritis (20) Pacemaker (21) Polymyalgia rheumatica (22) Presence of combination internal cardiac defibrillator (ICD) and pacemaker (23) Pure Hypercholesterolem (24) Ventricular fibrillation Surgical Problems: (1) H/O eye surgery (2) History of appendectomy (3) History of cholecystectomy (4) History of hysterectomy (5) History of hysterectomy (6) S/P triple vessel bypass Social History Problems: (1) Diabetes mellitus Family History Diabetes mellitus FATHER BROTHER FH: cancer FH: lung disease FHx: heart disease MOTHER Hypertension MOTHER Kidney disease Kidney stones Social History Smoking Status: Former Smoker Alcohol Use: occasionally Drug Use: none Marital Status: Housing Status: lives alone Occupation Status: disabled Current/Historical Medications Scheduled Amoxicillin (Amoxicillin), 500 MG PO BID Aspirin (Aspirin Ec), 81 MG PO QAM Ciclopirox (Ciclopirox Nail Lacquer), TOP UD Clobetasol Propionate (Clobetasol Propionate), 1 APPLN TOP DAILY Clopidogrel Bisulfate (Plavix), 75 MG PO HS Cyclosporine (Ophth) (Restasis), 1 DROPS OP BID Docusate Sodium (Docusate Sodium), 100 MG PO DAILY Escitalopram Oxalate (Lexapro), 15 MG PO QAM Fluticasone Propionate (Flovent Hfa), 2 PUFFS INH BID Hydroquinone (Tl Hydroquinone), 1 APPLN TOP BID Insulin Glargine (Lantus), 20 UNIT SC BID Ketoconazole (Topical) (Ketoconazole), 1 APPLN TOP DAILY Lactobacillus (Acidophilus Extra Strengt), 1 CAP PO DAILY Metoprolol Succinate (Metoprolol Succinate ER), 50 MG PO BID Metronidazole (Topical) (Metrocream), TOP DAILY Nitroglycerin (Nitrostat), 0.4 MG UT PRN Ondasetron Odt (Zofran Odt), 4 MG SL Q8 Pantoprazole (Pantoprazole Sodium), 1 TAB PO DAILY Potassium Chloride (Klor-Con M20), 20 MEQ PO DAILY Triamcinolone Acet (Aristocort 0.1%), 1 APPL TOP BID Scheduled PRN Albuterol Hfa (Ventolin Hfa), 2 PUFFS INH Q4H PRN for Wheezing Docusate Sodium (Colace), 100 MG PO BID PRN for Constipation Insulin Aspart (Novolog Flexpen), 1 DOSE SQ ACHS PRN for SLIDING SCALE Magnesium Citrate (Magnesium Citrate), 120 ML PO DAILY PRN for Constipation Menthol-Zinc Oxide (Calmoseptine), 1 APPL TOP Q8 PRN for rectal pain Polyethylene (Miralax), 17 GM PO DAILY PRN for Constipation Senna/Docusate Sod (Senokot S), 1 TAB PO DAILY PRN for Constipation Allergies Coded Allergies: BEE STING (Verified Allergy, Severe, SWELLING, 09/08/17) Lidocaine (Verified Allergy, Severe, ANAPHYLAXIS, 09/08/17) Morphine (Verified Allergy, Mild, itching, 09/08/17) Tramadol (Verified Allergy, Mild, ITCHING, 09/08/17) Trazodone (Verified Allergy, Mild, ITCHING, 09/08/17) Physical Exam Vital Signs Date Time Temp Pulse Resp B/P (MAP) Pulse Ox O2 Delivery O2 Flow Rate FiO2 09/15/17 19:45 60 12 178/84 96 09/15/17 18:45 61 14 189/74 99 Room Air 09/15/17 16:09 60 09/15/17 16:02 63 16 188/83 96 Room Air 09/15/17 14:04 68 18 165/66 95 Room Air 09/15/17 11:39 63 09/15/17 11:38 36.5 63 20 137/73 95 Room Air Physical Exam GENERAL: Awake, alert, well-appearing, in no distress HENT: Normocephalic, atraumatic. Oropharynx unremarkable. EYES: Normal conjunctiva. Sclera non-icteric. NECK: Supple. No nuchal rigidity. FROM. No JVD. RESPIRATORY: Clear to auscultation. CARDIAC: Regular rate, normal rhythm. Extremities warm and well perfused. Pulses equal. ABDOMEN: Soft, non-distended. No tenderness to palpation. No rebound or guarding. No masses. RECTAL: Deferred. MUSCULOSKELETAL: Chest examination reveals no tenderness. The back is symmetrical on inspection without obvious abnormality. There is no CVA tenderness to palpation. No joint edema. LOWER EXTREMITIES: Calves are equal size bilaterally and non-tender. No edema. No discoloration. NEURO: Alert to self and place. Slow speech, slow generalized motor movements. 3 /5 strength in RLE, 4/5 strength elsewhere SKIN: No rash or jaundice noted. Medical Decision & Procedures ER Provider Diagnostic Interpretation: Radiology results as stated below per my review and radiologist interpretation: CT ANGIOGRAM OF THE BRAIN COMBO; CT ANGIOGRAM OF THE NECK CLINICAL HISTORY: Right lower extremity weakness. COMPARISON STUDY: CT of the brain dated 09/08/2017. TECHNIQUE: Unenhanced axial CT scan of the brain is performed. Subsequently, following the IV administration of 119 of Optiray 320, CT angiogram of the head and neck was performed from the aortic arch to the vertex. Images are reviewed in the axial, sagittal, and coronal planes. 3-D MIPS images are created and assessed. IV contrast was administered without complication. All measurements were calculated based on NASCET criteria. A dose lowering technique was utilized adhering to the principles of ALARA. CT DOSE: 1145.30 mGy.cm FINDINGS: Brain parenchyma: There are age-related involutional changes noting mild subcortical and periventricular microangiopathic disease. There is no hemorrhage, mass effect, or evidence of acute territorial ischemia by CT criteria. There is no evidence of enhancing mass lesion on the angiogram phase images. The ventricles, sulci, and cisterns are prominent secondary to involutional change. Titus-white matter differentiation is preserved. No extra-axial fluid collection is seen. Thoracic aorta: Visualized portions of the thoracic aorta are normal in caliber. The aortic arch demonstrates standard 3-vessel anatomy. Right carotid arterial system: The right common carotid artery is widely patent. There is dense atherosclerotic calcification of the right carotid bulb with less than 50% luminal narrowing. The right internal carotid artery is otherwise patent, as is the right external carotid artery. Left carotid arterial system: The left common carotid artery is widely patent. There is dense atherosclerotic calcification of the carotid bulb causing less than 50% luminal narrowing. The left internal carotid artery is otherwise widely patent. High-grade stenosis is identified at the origin of the left external carotid artery. Vertebral arteries: The vertebral arteries are patent and codominant. Subclavian arteries: Widely patent bilaterally. Intracranial vasculature: The [place] is developmentally complete noting large bilateral posterior communicating arteries. The internal carotid arteries are patent at the skull base, as are the anterior and middle cerebral arteries bilaterally. The basilar artery and the vertebral arteries are diminutive but widely patent. The posterior cerebral arteries are clear. The vertebral arteries are codominant. There is no aneurysm, high-grade stenosis, or focal vessel cut off seen throughout the intracranial circulation. Jugular veins: Widely patent bilaterally. Dural sinuses: Patent. Lung apices: Partially visualized upper lobe lung parenchyma appears clear. A cardiac pacemaker is noted in the left chest wall. Soft tissues: The visualized pharyngeal soft tissues are normal in appearance noting angiographic phase technique. The oropharyngeal airway appears widely patent. The salivary and thyroid glands are normal in appearance. No cervical lymphadenopathy is seen. Skeletal structures: The calvarium appears intact. The cervical spine is within normal limits. Sinuses and mastoids: Minimal secretions are seen within the right sphenoid sinus. The remaining Paranasal sinuses are clear. The mastoid air cells are well pneumatized. Orbits: The bony orbits appear intact. Orbital contents are normal as visualized noting bilateral ocular lens implants. IMPRESSION: 1. There is no hemorrhage, mass effect, or evidence of acute territorial ischemia by CT criteria. 2. Unremarkable CT angiogram of the brain. 3. There is atherosclerotic calcification of the carotid bulbs bilaterally. This causes less than 50% luminal narrowing. 4. The internal carotid arteries are otherwise widely patent. 5. High-grade stenosis is seen at the origin of the left external carotid artery. Electronically signed by: Diego Ricardo M.D. 09/15/2017 3:17 PM Dictated Date/Time: 09/15/2017 3:06 PM SINGLE VIEW CHEST CLINICAL HISTORY: Generalized abdominal pain. FINDINGS: An AP, portable, upright chest radiograph is compared to study dated 09/08/2017. The examination is degraded by portable technique and patient rotation. A 2-lead cardiac AICD is unchanged in position and partially obscures the left mid chest. The patient is status post midline sternotomy. The heart is enlarged and there is atherosclerotic calcification of the thoracic aorta. The pulmonary vasculature is noncongested. Bibasilar atelectasis is noted. The lungs and pleural spaces are otherwise clear. No pneumothorax is seen. The skeletal structures are osteopenic. The bony thorax is grossly intact. IMPRESSION: 1. Cardiomegaly and AICD. There is no radiographic evidence of congestive failure. 2. No airspace consolidation or pleural effusion is identified. Electronically signed by: Diego Ricardo M.D. 09/15/2017 12:43 PM Dictated Date/Time: 09/15/2017 12:[address] ANGIOGRAM OF THE BRAIN COMBO; CT ANGIOGRAM OF THE NECK CLINICAL HISTORY: Right lower extremity weakness. COMPARISON STUDY: CT of the brain dated 09/08/2017. TECHNIQUE: Unenhanced axial CT scan of the brain is performed. Subsequently, following the IV administration of 119 of Optiray 320, CT angiogram of the head and neck was performed from the aortic arch to the vertex. Images are reviewed in the axial, sagittal, and coronal planes. 3-D MIPS images are created and assessed. IV contrast was administered without complication. All measurements were calculated based on NASCET criteria. A dose lowering technique was utilized adhering to the principles of ALARA. CT DOSE: 1145.30 mGy.cm FINDINGS: Brain parenchyma: There are age-related involutional changes noting mild subcortical and periventricular microangiopathic disease. There is no hemorrhage, mass effect, or evidence of acute territorial ischemia by CT criteria. There is no evidence of enhancing mass lesion on the angiogram phase images. The ventricles, sulci, and cisterns are prominent secondary to involutional change. Titus-white matter differentiation is preserved. No extra-axial fluid collection is seen. Thoracic aorta: Visualized portions of the thoracic aorta are normal in caliber. The aortic arch demonstrates standard 3-vessel anatomy. Right carotid arterial system: The right common carotid artery is widely patent. There is dense atherosclerotic calcification of the right carotid bulb with less than 50% luminal narrowing. The right internal carotid artery is otherwise patent, as is the right external carotid artery. Left carotid arterial system: The left common carotid artery is widely patent. There is dense atherosclerotic calcification of the carotid bulb causing less than 50% luminal narrowing. The left internal carotid artery is otherwise widely patent. High-grade stenosis is identified at the origin of the left external carotid artery. Vertebral arteries: The vertebral arteries are patent and codominant. Subclavian arteries: Widely patent bilaterally. Intracranial vasculature: The [place] is developmentally complete noting large bilateral posterior communicating arteries. The internal carotid arteries are patent at the skull base, as are the anterior and middle cerebral arteries bilaterally. The basilar artery and the vertebral arteries are diminutive but widely patent. The posterior cerebral arteries are clear. The vertebral arteries are codominant. There is no aneurysm, high-grade stenosis, or focal vessel cut off seen throughout the intracranial circulation. Jugular veins: Widely patent bilaterally. Dural sinuses: Patent. Lung apices: Partially visualized upper lobe lung parenchyma appears clear. A cardiac pacemaker is noted in the left chest wall. Soft tissues: The visualized pharyngeal soft tissues are normal in appearance noting angiographic phase technique. The oropharyngeal airway appears widely patent. The salivary and thyroid glands are normal in appearance. No cervical lymphadenopathy is seen. Skeletal structures: The calvarium appears intact. The cervical spine is within normal limits. Sinuses and mastoids: Minimal secretions are seen within the right sphenoid sinus. The remaining Paranasal sinuses are clear. The mastoid air cells are well pneumatized. Orbits: The bony orbits appear intact. Orbital contents are normal as visualized noting bilateral ocular lens implants. IMPRESSION: 1. There is no hemorrhage, mass effect, or evidence of acute territorial ischemia by CT criteria. 2. Unremarkable CT angiogram of the brain. 3. There is atherosclerotic calcification of the carotid bulbs bilaterally. This causes less than 50% luminal narrowing. 4. The internal carotid arteries are otherwise widely patent. 5. High-grade stenosis is seen at the origin of the left external carotid artery. Electronically signed by: Diego Ricardo M.D. 09/15/2017 3:17 PM Dictated Date/Time: 09/15/2017 3:06 PM Laboratory Results 09/15/17 13:52 Red Blood Count 3.45, Mean Corpuscular Volume 84.6, Mean Corpuscular Hemoglobin 27.8, Mean Corpuscular Hemoglobin Concent 32.9, Mean Platelet Volume 9.6, Neutrophils (%) (Auto) 50.3, Lymphocytes (%) (Auto) 39.6, Monocytes (%) (Auto) 8.1, Eosinophils (%) (Auto) 1.0, Basophils (%) (Auto) 0.3, Neutrophils # (Auto) 4.99, Lymphocytes # (Auto) 3.93, Monocytes # (Auto) 0.80, Eosinophils # (Auto) 0.10, Basophils # (Auto) 0.03 09/15/17 13:52 Test 09/15/17 12:30 09/15/17 12:50 09/15/17 13:52 Influenza Type A (RT-PCR) Neg for Influ A (NEG) Influenza Type B (RT-PCR) Neg for Influ B (NEG) Urine Color YELLOW Urine Appearance CLEAR (CLEAR) Urine pH 5.0 (4.5-7.5) Urine Specific [place] 1.013 (1.000-1.030) Urine Protein NEG (NEG) Urine Glucose (UA) NEG (NEG) Urine Ketones NEG (NEG) Urine Occult Blood NEG (NEG) Urine Nitrite NEG (NEG) Urine Bilirubin NEG (NEG) Urine Urobilinogen NEG (NEG) Urine Leukocyte Esterase SMALL (NEG) Urine WBC (Auto) 5-10 /hpf (0-5) Urine RBC (Auto) 0-4 /hpf (0-4) Urine Hyaline Casts (Auto) 1-5 /lpf (0-5) Urine Epithelial Cells (Auto) >30 /lpf (0-5) Urine Bacteria (Auto) NEG (NEG) Urine Yeast (Auto) BUDDING (NONE PRSENT) White Blood Count 9.92 K/uL (4.8-10.8) Red Blood Count 3.45 M/uL (4.2-5.4) Hemoglobin 9.6 g/dL (12.0-16.0) Hematocrit 29.2 % (37-47) Mean Corpuscular Volume 84.6 fL (80-100) Mean Corpuscular Hemoglobin 27.8 pg (25-34) Mean Corpuscular Hemoglobin Concent 32.9 g/dl (32-36) Platelet Count 336 K/uL (130-400) Mean Platelet Volume 9.6 fL (7.4-10.4) Neutrophils (%) (Auto) 50.3 % Lymphocytes (%) (Auto) 39.6 % Monocytes (%) (Auto) 8.1 % Eosinophils (%) (Auto) 1.0 % Basophils (%) (Auto) 0.3 % Neutrophils # (Auto) 4.99 K/uL (1.4-6.5) Lymphocytes # (Auto) 3.93 K/uL (1.2-3.4) Monocytes # (Auto) 0.80 K/uL (0.11-0.59) Eosinophils # (Auto) 0.10 K/uL (0-0.5) Basophils # (Auto) 0.03 K/uL (0-0.2) RDW Standard Deviation 43.2 fL (36.4-46.3) RDW Coefficient of Variation 14.0 % (11.5-14.5) Immature Granulocyte % (Auto) 0.7 % Immature Granulocyte # (Auto) 0.07 K/uL (0.00-0.02) Prothrombin Time 10.0 SECONDS (9.0-12.0) Prothromb Time International Ratio 1.0 (0.9-1.1) Anion Gap 5.0 mmol/L (3-11) Est Creatinine Clear Calc Drug Dose 77.4 ml/min Estimated GFR () 93.1 Estimated GFR (Non- 80.3 BUN/Creatinine Ratio 8.0 (10-20) Calcium Level 8.8 mg/dl (8.5-10.1) Magnesium Level 1.6 mg/dl (1.8-2.4) Total Bilirubin 0.2 mg/dl (0.2-1) Direct Bilirubin < 0.1 mg/dl (0-0.2) Aspartate Amino Transf (AST/SGOT) 16 U/L (15-37) Alanine Aminotransferase (ALT/SGPT) 18 U/L (12-78) Alkaline Phosphatase 55 U/L (45-117) Ammonia < 10.0 umol/L (11-32) Troponin I < 0.015 ng/ml (0-0.045) Total Protein 7.6 gm/dl (6.4-8.2) Albumin 2.4 gm/dl (3.4-5.0) Lipase 71 U/L (73-393) Laboratory results reviewed by me ECG Per My Interpretation Indication: weakness Rate (beats per minute): 63 Rhythm: other (atrial paced in a pattern of bigeminy) Findings: no acute ischemic change, other (Normal axis) ED Course 1209: The patient was evaluated in room B03B. A complete history and physical exam was performed. 1653: I reevaluated the patient and she is resting comfortably. I updated her on her results. 1817: Nursing informed me that the patient was accepted to [facility]. The family was updated. The patient is ready for transfer. Medical Decision I reviewed the patient's past medical history, medications, and the nursing notes as described above. Additional history obtained from daughter. The patient's history was concerning for etiologies such as metabolic, infection , hypo/hyperglycemia, electrolyte abnormalities, cardiac sources, intracerebral event, toxicologic, neurologic, as well as others were entertained. The patient is a 62-year-old woman with a past medical history of encephalopathy with recent admission for urosepsis who presents emergency department with generalized weakness and question of fever that had an onset of today per hpi. Of note the details of the patient's acute symptoms is unclear given the patient is a poor historian. EKG demonstrates atrial paced rhythm and otherwise unremarkable. Labs are also unremarkable. UA appears dirty and thus will wait for cultures given that the patient has recent completed an extensive course of antibiotics. Chest x-ray negative for pneumonia. CTA with no evidence of acute ischemia or infarct and no intracranial large vessel occlusion. Given that the patient does not appear to be significantly different from her baseline case management assisting to discuss with family concerns and if they are unable to treat the patient at home will consider placement. Family and patient agreeable for rehab. Accepted to [facility]. Medication Reconcilliation Current Medication List: was personally reviewed by me Blood Pressure Screening Patient's blood pressure: Elevated blood pressure Blood pressure disposition: Elevated BP felt to be situational Impression Primary Impression: Generalized weakness Scribe Attestation The scribe's documentation has been prepared under my direction and personally reviewed by me in its entirety. I confirm that the note above accurately reflects all work, treatment, procedures, and medical decision making performed by me. Departure Information Dispostion Rehab Inpatient Facility Referrals Reginaldo Ramirez D.O. (PCP) Patient Instructions ED Weakness O, My [facility] Additional Instructions You are being discharged to acute rehab to help you regain her strength. Otherwise, your exam, EKG, chest xray, lab results, CT scan did not show signs of an emergent condition at this time. Continue your current medications. Drink plenty of fluids to ensure hydration. Return to the emergency department for worsening symptoms as described in the accompanying instructions.
[2017-09-15 13:26] LABS: INFLUENZA A PCR Neg for Influ A (NEG); INFLUENZA B PCR Neg for Influ B (NEG)
[2017-09-15 14:15] LABS: BASO % 0.3 %; BASO ABS # 0.03 K/uL (0-0.2); HEMATOCRIT 29.2 % (37-47); HEMOGLOBIN 9.6 g/dL (12.0-16.0); IG# 0.07 K/uL (0.00-0.02); LYMPH % 39.6 %; LYMPH ABS # 3.93 K/uL (1.2-3.4); MEAN CELL VOLUME 84.6 fL (80-100); MEAN CORPUSCULAR HEMOGLOBIN 27.8 pg (25-34); MEAN CORPUSCULAR HGB CONC 32.9 g/dl (32-36); MEAN PLATELET VOLUME 9.6 fL (7.4-10.4); MONO % 8.1 %; NEUT % 50.3 %; NEUT ABS # 4.99 K/uL (1.4-6.5); PLATELET COUNT 336 K/uL (130-400); RED CELL DISTRIBUTION WIDTH SD 43.2 fL (36.4-46.3); WHITE BLOOD COUNT 9.92 K/uL (4.8-10.8)
[2017-09-15 14:32] LABS: ALBUMIN 2.4 gm/dl (3.4-5.0); ALT/SGPT 18 U/L (12-78); AST/SGOT 16 U/L (15-37); BLOOD UREA NITROGEN 6 mg/dl (7-18); CALCIUM 8.8 mg/dl (8.5-10.1); CARBON DIOXIDE 31 mmol/L (21-32); CREATININE 0.78 mg/dl (0.60-1.20); GLUCOSE 186 mg/dl (70-99); LIPASE 71 U/L (73-393); POTASSIUM 3.8 mmol/L (3.5-5.1); SODIUM 139 mmol/L (136-145)
[2017-09-15 14:37] LABS: ALKALINE PHOSPHATASE 55 U/L (45-117); TOTAL PROTEIN 7.6 gm/dl (6.4-8.2)
--- NOTE | 2017-09-15 15:18 | DIAGNOSTIC IMAGING REPORT ---
CT ANGIOGRAM OF THE BRAIN COMBO; CT ANGIOGRAM OF THE NECK CLINICAL HISTORY: Right lower extremity weakness. COMPARISON STUDY: CT of the brain dated 09/08/2017. TECHNIQUE: Unenhanced axial CT scan of the brain is performed. Subsequently, following the IV administration of 119 of Optiray 320, CT angiogram of the head and neck was performed from the aortic arch to the vertex. Images are reviewed in the axial, sagittal, and coronal planes. 3-D MIPS images are created and assessed. IV contrast was administered without complication. All measurements were calculated based on NASCET criteria. A dose lowering technique was utilized adhering to the principles of ALARA. CT DOSE: 1145.30 mGy.cm FINDINGS: Brain parenchyma: There are age-related involutional changes noting mild subcortical and periventricular microangiopathic disease. There is no hemorrhage, mass effect, or evidence of acute territorial ischemia by CT criteria. There is no evidence of enhancing mass lesion on the angiogram phase images. The ventricles, sulci, and cisterns are prominent secondary to involutional change. Titus-white matter differentiation is preserved. No extra-axial fluid collection is seen. Thoracic aorta: Visualized portions of the thoracic aorta are normal in caliber. The aortic arch demonstrates standard 3-vessel anatomy. Right carotid arterial system: The right common carotid artery is widely patent. There is dense atherosclerotic calcification of the right carotid bulb with less than 50% luminal narrowing. The right internal carotid artery is otherwise patent, as is the right external carotid artery. Left carotid arterial system: The left common carotid artery is widely patent. There is dense atherosclerotic calcification of the carotid bulb causing less than 50% luminal narrowing. The left internal carotid artery is otherwise widely patent. High-grade stenosis is identified at the origin of the left external carotid artery. Vertebral arteries: The vertebral arteries are patent and codominant. Subclavian arteries: Widely patent bilaterally. Intracranial vasculature: The [place] is developmentally complete noting large bilateral posterior communicating arteries. The internal carotid arteries are patent at the skull base, as are the anterior and middle cerebral arteries bilaterally. The basilar artery and the vertebral arteries are diminutive but widely patent. The posterior cerebral arteries are clear. The vertebral arteries are codominant. There is no aneurysm, high-grade stenosis, or focal vessel cut off seen throughout the intracranial circulation. Jugular veins: Widely patent bilaterally. Dural sinuses: Patent. Lung apices: Partially visualized upper lobe lung parenchyma appears clear. A cardiac pacemaker is noted in the left chest wall. Soft tissues: The visualized pharyngeal soft tissues are normal in appearance noting angiographic phase technique. The oropharyngeal airway appears widely patent. The salivary and thyroid glands are normal in appearance. No cervical lymphadenopathy is seen. Skeletal structures: The calvarium appears intact. The cervical spine is within normal limits. Sinuses and mastoids: Minimal secretions are seen within the right sphenoid sinus. The remaining Paranasal sinuses are clear. The mastoid air cells are well pneumatized. Orbits: The bony orbits appear intact. Orbital contents are normal as visualized noting bilateral ocular lens implants. IMPRESSION: 1. There is no hemorrhage, mass effect, or evidence of acute territorial ischemia by CT criteria. 2. Unremarkable CT angiogram of the brain. 3. There is atherosclerotic calcification of the carotid bulbs bilaterally. This causes less than 50% luminal narrowing. 4. The internal carotid arteries are otherwise widely patent. 5. High-grade stenosis is seen at the origin of the left external carotid artery. Electronically signed by: Diego Ricardo M.D. 09/15/2017 3:17 PM Dictated Date/Time: 09/15/2017 3:06 PM
[2017-09-15 19:45] VITALS: BP 178/84; PULSE 60; O2SAT 96
== END 2017-09-15 19:46 ==
LOC: EDBD 11:30 → C.EDB 11:31
DX: R53.1 Weakness (principal); Z95.1 Presence of aortocoronary bypass graft; N18.3 Chronic kidney disease, stage 3 (moderate); K31.84 Gastroparesis; E11.40 Type 2 diabetes mellitus with diabetic neuropathy, unspecified; I50.32 Chronic diastolic (congestive) heart failure; G47.30 Sleep apnea, unspecified; Z87.440 Personal history of urinary (tract) infections; J45.909 Unspecified asthma, uncomplicated; I25.10 Atherosclerotic heart disease of native coronary artery without angina pectoris; M19.90 Unspecified osteoarthritis, unspecified site; K21.9 Gastro-esophageal reflux disease without esophagitis; E66.9 Obesity, unspecified; M35.3 Polymyalgia rheumatica; E78.00 Pure hypercholesterolemia, unspecified; Z83.3 Family history of diabetes mellitus; Z80.9 Family history of malignant neoplasm, unspecified; Z83.6 Family history of other diseases of the respiratory system; Z82.49 Family history of ischemic heart disease and other diseases of the circulatory system; Z84.1 Family history of disorders of kidney and ureter; Z87.891 Personal history of nicotine dependence; Z79.82 Long term (current) use of aspirin; Z79.4 Long term (current) use of insulin; Z79.899 Other long term (current) drug therapy; Z91.030 Bee allergy status; Z88.5 Allergy status to narcotic agent; Z88.8 Allergy status to other drugs, medicaments and biological substances

== ENCOUNTER → 2018-02-13 | Outpatient (CLI) | payer OTHER ==
[~2018-02-13] MED LIST changes: +ATOR-24 PO; +CARB1TAB94 PO; +DICL1GEL12 TD; -DOCU100C31 PO; +FLM4 PO; -INSDGI SC; +INSDGIPEN SQ; +IPRA0.03 NAE; +ISOS30TA3 PO; +LISI-729 PO; -MCRK20 PO; +ONDA4TAB46 SL; +PHEN-1043 PO
--- NOTE | 2018-02-13 10:43 | DIAGNOSTIC IMAGING REPORT ---
HEAD WITHOUT CONTRAST (CT) CLINICAL HISTORY: 62 years-old Female with G91.2 Normal pressure [id number]. TECHNIQUE: Multiple axial CT images of the head were obtained without contrast. A dose lowering technique was utilized adhering to the principles of ALARA. CT DOSE: 638.56 mGycm COMPARISON: CT head 12/12/2017. FINDINGS: No acute intracranial hemorrhage, midline shift, intracranial mass, territorial ischemia or abnormal extra-axial collection. Mild dilation of the lateral, third and fourth ventricles redemonstrated with transverse dimension of the lateral ventricles measuring up to 4.6 cm on image 19 series 2, previously 4.5 cm on study dated 12/12/2017. The degree of ventricular dilation appears to be greater than expected with only mild cerebral atrophy noted. Mild ill-defined low-attenuation about the periventricular white matter suggests chronic microvascular ischemic changes. The calvarium is intact. Trace left mastoid effusion. Minimal mucoperiosteal thickening of the ethmoid air cells and right maxillary sinus. Bubbly secretions are noted within the right sphenoid sinus. Soft tissues and orbits are unremarkable. Are bilateral cataract repair. IMPRESSION: 1. No acute intracranial abnormality identified. 2. Unchanged mild dilation of the ventricles which again appears to be greater than expected for the degree of mild cerebral atrophy. These findings may reflect normal pressure hydrocephalus within the appropriate clinical setting. The above report was generated using voice recognition software. It may contain grammatical, syntax or spelling errors. Electronically signed by: George Childers M.D. 02/13/2018 10:42 AM Dictated Date/Time: 02/13/2018 10:38 AM
== END | disposition home or self-care (01) ==
LOC: C.CTS 10:19
PROVIDERS: ATTEND Psychiatry & Neurology Neurology
DX: G91.2 (Idiopathic) normal pressure hydrocephalus (principal)

== ENCOUNTER 2018-02-21 13:56 | Emergency (ER) | payer OTHER ==
[~2018-02-21] VITALS: Ht 157.5 cm; Wt 78.7 kg
[~2018-02-21 13:56] MED LIST changes: -CARB1TAB94 PO; -ONDA4TAB10 SL
[2018-02-21 14:07] VITALS: TEMP 36.4; Ht 157.5 cm; Wt 78.7 kg
[2018-02-21] MEDS ORDERED: SODIUM CHLORIDE 0.9% 1000ML 1,000 ML IV STA (14:34)
[2018-02-21] MEDS ORDERED: SODIUM CHLORIDE 0.9% 500ML 500 ML IV STA (14:34)
[2018-02-21] MEDS ORDERED: ONDANSETRON INJ 2 MG/ML 2 ML VIAL IV STA ×2 (14:34→16:58)
--- NOTE | 2018-02-21 14:37 | EMERGENCY ROOM VISIT NOTE ---
History Report prepared by Melanie: Odalis Chaudhry Under the Supervision of: Dr. Sheridan Mullins M.D. First contact with patient: 14:20 Chief Complaint: ILLNESS Stated Complaint: ILLNESS History of Present Illness The patient is a 62 year old female who presents to the Emergency Room with complaints of vomiting over the last couple of days. She also reports having abdominal pain. The patient denies having a bowel movement over the last 3 days. She also denies having diarrhea or fevers. Per sister, the patient recently started a new medication for Parkinson's Disease and states that she believes that the patient is having side effects. Her sister states that the patient had fried chicken yesterday and the patient states that she normally does not vomit after eating fried chicken. Her sister states that the patient is diabetic and has heart disease. Per sister, the patient stated that she "didn 't feel right" yesterday. The patient reports feeling light-headed and "jittery " yesterday. The patient reports that she has not been drinking much. Source of History: patient, sibling, caregiver Onset: over the last couple of days Position: other (generalized) Quality: other (vomiting) Associated Symptoms: + abdominal pain, + weakness (light-headed), No diarrhea Review of Systems See HPI for pertinent positives & negatives. A total of 10 systems reviewed and were otherwise negative. Past Medical & Surgical Medical Problems: (1) Abdominal pain (2) SABRINA (acute kidney injury) (3) Altered mental state (4) Ambulatory dysfunction (5) Aortocoronary Bypass (6) Asthma, Unspecified (7) CKD (chronic kidney disease), stage III (8) Coronary atherosclerosis of the [place] coronary vessel (9) Depression (10) Diab Nany Wo Compl, Type Ii Or Unspec Type, Not Uncntrld (11) Diabetic nephropathy (12) Diabetic retinopathy (13) Dizziness (14) GERD (gastroesophageal reflux disease) (15) Hypertension Nos (16) Neuropathy in diabetes (17) Obesity, Class II, BMI 35-39.9, with comorbidity (18) Obstructive Sleep Apnea (Adult) (Pediatric) (19) Osteoarthritis (20) Pacemaker (21) Polymyalgia rheumatica (22) Presence of combination internal cardiac defibrillator (ICD) and pacemaker (23) Pure Hypercholesterolem (24) Sepsis (25) Ureteral calculus (26) Ventricular fibrillation Surgical Problems: (1) H/O eye surgery (2) History of appendectomy (3) History of cholecystectomy (4) History of hysterectomy (5) History of hysterectomy (6) S/P triple vessel bypass Social History Problems: (1) Diabetes mellitus Family History Diabetes mellitus FATHER BROTHER FH: cancer FH: lung disease FHx: heart disease MOTHER Hypertension MOTHER Kidney disease Kidney stones Social History Smoking Status: Never Smoker Alcohol Use: occasionally Drug Use: none Marital Status: Housing Status: lives alone Occupation Status: unemployed, disabled Current/Historical Medications Scheduled Amoxicillin (Amoxicillin), 500 MG PO BID Aspirin (Aspirin Ec), 81 MG PO QAM Atorvastatin (Lipitor), 40 MG PO DAILY Carbidopa (Carbidopa), 12.5 MG PO TID Ciclopirox (Ciclopirox Nail Lacquer), 1 APPLN TOP DAILY Clobetasol Propionate (Clobetasol Propionate), 1 APPLN TOP DAILY Clopidogrel Bisulfate (Plavix), 75 MG PO HS Cyclosporine (Ophth) (Restasis), 1 DROPS OP BID Diclofenac Sodium (Topical) (Voltaren 1% Top Gel), 1 APPLN TD QID Escitalopram Oxalate (Lexapro), 15 MG PO QAM Fluticasone Propionate (Flovent Hfa), 2 PUFFS INH BID Hydroquinone (Tl Hydroquinone), 1 APPLN TOP BID Insulin Aspart (Novolog Flexpen), 7 UNITS SQ ACHS Insulin Glargine (Lantus Solostar), 23 UNITS SQ DAILY Ipratropium [place] (Nasal) (Ipratropium [place]), 2 SPRAYS DANIEL BID Isosorbide Mononitrate Ext Rel (Imdur Ext Rel), 90 MG PO QAM Ketoconazole (Topical) (Ketoconazole), 1 APPLN TOP DAILY Lactobacillus (Acidophilus Extra Strengt), 1 CAP PO DAILY Lisinopril (Zestril), 5 MG PO DAILY Metoprolol Succinate (Metoprolol Succinate ER), 50 MG PO BID Metronidazole (Topical) (Metrocream), TOP DAILY Nitroglycerin (Nitrostat), 0.4 MG UT PRN Ondasetron Odt (Zofran Odt), 4 MG SL Q6H Pantoprazole (Pantoprazole Sodium), 40 MG PO DAILY Tamsulosin HCl (Tamsulosin HCl), 0.4 MG PO QAM Triamcinolone Acet (Aristocort 0.1%), 1 APPL TOP BID Scheduled PRN Albuterol Hfa (Ventolin Hfa), 2 PUFFS INH Q4H PRN for Wheezing Docusate Sodium (Colace), 100 MG PO BID PRN for Constipation Magnesium Citrate (Magnesium Citrate), 120 ML PO DAILY PRN for Constipation Menthol-Zinc Oxide (Calmoseptine), 1 APPL TOP Q8 PRN for rectal pain Ondansetron Hcl (Zofran), 4 MG SL Q8 PRN for Nausea Phenazopyridine HCl (Phenazopyridine HCl), 200 MG PO TID PRN for Bladder pain Polyethylene (Miralax), 17 GM PO DAILY PRN for Constipation Senna/Docusate Sod (Senokot S), 1 TAB PO DAILY PRN for Constipation Allergies Coded Allergies: BEE STING (Verified Allergy, Severe, SWELLING, 09/08/17) Lidocaine (Verified Allergy, Severe, ANAPHYLAXIS, 09/08/17) Morphine (Verified Allergy, Mild, itching, 09/08/17) Tramadol (Verified Allergy, Mild, ITCHING, 09/08/17) Trazodone (Verified Allergy, Mild, ITCHING, 09/08/17) Physical Exam Vital Signs Date Time Temp Pulse Resp B/P (MAP) Pulse Ox O2 Delivery O2 Flow Rate FiO2 02/21/18 16:52 78 18 190/95 100 Room Air 02/21/18 15:49 74 18 193/110 98 Room Air 02/21/18 15:27 73 02/21/18 14:07 36.4 77 18 189/119 100 Room Air Physical Exam Vital signs reviewed. General: Chronically ill-appearing female, in no significant distress. HEENT: No scleral icterus, PERRLA, neck supple. Atraumatic. Cardiovascular: Regular rate and rhythm, no extra sounds. Pulmonary: Clear to auscultation bilaterally, normal work of breathing. Abdomen: Soft, diffuse mild abdominal tenderness, nondistended, positive bowel sounds. No tympany to percussion. Musculoskeletal: Atraumatic, no peripheral edema. Neurologic: Patient awake alert and answers some questions, ? mild confusion. Baseline muscular tremor. Parkinson's shuffle with gait Skin: Warm, dry, no rash Medical Decision & Procedures ER Provider Diagnostic Interpretation: Radiology results as stated below per my review and radiologist interpretation: AP CHEST WITH ABDOMINAL SERIES CLINICAL HISTORY: Vomiting. FINDINGS: An AP chest radiograph is compared to study dated 12/12/2017. The examination is degraded by patient rotation. A 2-lead cardiac AICD is unchanged in position and partially obscures the left mid chest. The patient is status post midline sternotomy. The heart is enlarged and there is atherosclerotic calcification of the thoracic and. The pulmonary mass culture is noncongested. Chronic interstitial thickening is similar to previous. No airspace consolidation or large pleural effusion is identified. No pneumothorax is seen. The skeletal structures are osteopenic. Degenerative change is seen in the shoulders and thoracic spine. The bony thorax is grossly intact. Supine and erect abdominal radiographs are correlated with abdominal CT dated 12/12/2017. Cholecystectomy clips are seen in the right upper quadrant. There is a nonobstructed abdominal bowel gas pattern. No evidence of intraperitoneal free air is seen. The liver appears enlarged. There are no abnormal abdominal calcifications. Phleboliths are noted in the pelvis. The lumbosacral spine and bony pelvis appear intact. Mild lumbosacral spondylosis is observed. Degenerative changes also seen in the hips. IMPRESSION: 1. Cardiomegaly and AICD. There is no radiographic evidence of congestive failure. 2. The lungs are clear. 3. Nonobstructed abdominal bowel gas pattern. Electronically signed by: Diego Ricardo M.D. 02/21/2018 4:33 PM Dictated Date/Time: 02/21/2018 4:31 PM Laboratory Results 02/21/18 14:55 Red Blood Count 4.43, Mean Corpuscular Volume 84.2, Mean Corpuscular Hemoglobin 29.1, Mean Corpuscular Hemoglobin Concent 34.6, Mean Platelet Volume 10.3, Neutrophils (%) (Auto) 72.7, Lymphocytes (%) (Auto) 24.3, Monocytes (%) (Auto) 2.6, Eosinophils (%) (Auto) 0.1, Basophils (%) (Auto) 0.1, Neutrophils # (Auto) 7.13, Lymphocytes # (Auto) 2.39, Monocytes # (Auto) 0.26, Eosinophils # (Auto) 0.01, Basophils # (Auto) 0.01 02/21/18 14:55 Test 02/21/18 14:55 02/21/18 15:45 White Blood Count 9.82 K/uL (4.8-10.8) Red Blood Count 4.43 M/uL (4.2-5.4) Hemoglobin 12.9 g/dL (12.0-16.0) Hematocrit 37.3 % (37-47) Mean Corpuscular Volume 84.2 fL (80-100) Mean Corpuscular Hemoglobin 29.1 pg (25-34) Mean Corpuscular Hemoglobin Concent 34.6 g/dl (32-36) Platelet Count 198 K/uL (130-400) Mean Platelet Volume 10.3 fL (7.4-10.4) Neutrophils (%) (Auto) 72.7 % Lymphocytes (%) (Auto) 24.3 % Monocytes (%) (Auto) 2.6 % Eosinophils (%) (Auto) 0.1 % Basophils (%) (Auto) 0.1 % Neutrophils # (Auto) 7.13 K/uL (1.4-6.5) Lymphocytes # (Auto) 2.39 K/uL (1.2-3.4) Monocytes # (Auto) 0.26 K/uL (0.11-0.59) Eosinophils # (Auto) 0.01 K/uL (0-0.5) Basophils # (Auto) 0.01 K/uL (0-0.2) RDW Standard Deviation 41.0 fL (36.4-46.3) RDW Coefficient of Variation 13.5 % (11.5-14.5) Immature Granulocyte % (Auto) 0.2 % Immature Granulocyte # (Auto) 0.02 K/uL (0.00-0.02) Anion Gap 10.0 mmol/L (3-11) Est Creatinine Clear Calc Drug Dose 46.0 ml/min Estimated GFR () 55.3 Estimated GFR (Non- 47.7 BUN/Creatinine Ratio 22.8 (10-20) Calcium Level 10.5 mg/dl (8.5-10.1) Magnesium Level 1.7 mg/dl (1.8-2.4) Total Bilirubin 0.6 mg/dl (0.2-1) Direct Bilirubin 0.2 mg/dl (0-0.2) Aspartate Amino Transf (AST/SGOT) 16 U/L (15-37) Alanine Aminotransferase (ALT/SGPT) 19 U/L (12-78) Alkaline Phosphatase 58 U/L (45-117) Total Protein 9.3 gm/dl (6.4-8.2) Albumin 4.1 gm/dl (3.4-5.0) Lipase 91 U/L (73-393) Urine Color YELLOW Urine Appearance CLEAR (CLEAR) Urine pH 5.5 (4.5-7.5) Urine Specific [place] 1.017 (1.000-1.030) Urine Protein TRACE (NEG) Urine Glucose (UA) 1+ (NEG) Urine Ketones 1+ (NEG) Urine Occult Blood NEG (NEG) Urine Nitrite NEG (NEG) Urine Bilirubin NEG (NEG) Urine Urobilinogen NEG (NEG) Urine Leukocyte Esterase NEG (NEG) Urine WBC (Auto) 0 /hpf (0-5) Urine RBC (Auto) 0-4 /hpf (0-4) Urine Hyaline Casts (Auto) 0 /lpf (0-5) Urine Epithelial Cells (Auto) 0-5 /lpf (0-5) Urine Bacteria (Auto) NEG (NEG) Laboratory results per my review. Medications Administered Medications (Trade) Dose Ordered Sig/Tera Route Start Time Stop Time Status Last Admin Dose Admin Sodium Chloride 500 ml @ 999 mls/hr Q31M STAT IV 02/21/18 14:34 02/21/18 15:04 DC 02/21/18 15:02 999 MLS/HR Sodium Chloride 1,000 ml @ 125 mls/hr Q8H STAT IV 02/21/18 14:34 02/21/18 18:11 DC 02/21/18 15:02 125 MLS/HR Ondansetron HCl (Zofran Inj) 4 mg NOW STAT IV 02/21/18 14:34 02/21/18 14:36 DC 02/21/18 15:02 4 MG Metoprolol Succinate (Toprol Xl Tab) 50 mg NOW STAT PO 02/21/18 16:01 02/21/18 16:03 DC 02/21/18 16:37 50 MG Lisinopril (Zestril Tab) 5 mg NOW STAT PO 02/21/18 16:01 02/21/18 16:03 DC 02/21/18 16:37 5 MG Bisacodyl (Dulcolax Supp) 10 mg NOW STAT TX 02/21/18 16:25 8/10/18 16:27 DC 02/21/18 17:23 10 MG Carbidopa/Levodopa (Sinemet 25/ 100MG Tab) 0.5 tab NOW STAT PO 02/21/18 16:58 02/21/18 17:03 DC 02/21/18 17:20 0.5 TAB Ondansetron HCl (Zofran Inj) 4 mg NOW STAT IV 02/21/18 16:58 02/21/18 17:03 DC 02/21/18 17:21 4 MG Polyethylene (Miralax Powder Packet) 17 gm NOW STAT PO 02/21/18 17:18 02/21/18 17:19 DC 02/21/18 17:22 17 GM ED Course 1428: Past medical records reviewed. The patient was evaluated in room B11A. A complete history and physical examination was performed. 1600: I checked on the patient and she feels better. Her blood pressure is elevated because did not take any of her blood pressure medications. 1625: I ordered Miralax, Dulcolax, and blood pressure medications for the patient. 1700: The patient is using the restroom. 1713: I checked on the patient. She did not get her Dulcolax or Miralax. The patient said she will take it at home. The nurse will give her Zofran and Sinemet. 1726: Upon reevaluation, the patient appeared to have improvement of her symptoms. I discussed findings with her. She verbalized agreement of the treatment plan. She was discharged home. Medical Decision Differential diagnosis: Etiologies such as gastroenteritis, food borne illness, infections, appendicitis , diverticulitis, inflammatory bowel disease, obstruction, GI bleed, biliary pathology, as well as others were entertained. This patient was evaluated and appeared to be in no significant distress. IV access was obtained and laboratory work was drawn. Patient was placed on monitoring coordinator. She is noted to be hypertensive however her sister states that she was not able to take her medications today due to vomiting. Patient had no vomiting in the emergency department. It is difficult to say if her symptoms are related to her gastroparesis with a fried chicken dinner last evening or her new medication, Sinemet. The clinical pharmacist did review the records and has recommended increasing the carbidopa component of the medication. She is currently taking Sinemet 25/100 and will be given a prescription for an additional 12.5 mg of carbidopa to be taken 3 times a day with her Sinemet. Patient did well with IV Zofran and IV hydration. Abdominal x-ray series was performed and reveals no evidence of obstruction. Patient does have difficulty with recurrent constipation. She was discharged with p.o. MiraLAX and a Dulcolax suppository. Patient ambulated to the restroom to urinate. There is no evidence of UTI. Patient will be discharged to follow-up with PCP and neurologist. She will return to the ED for worsening of symptoms or any medical concerns. Medication Reconcilliation Current Medication List: was personally reviewed by me Blood Pressure Screening Patient's blood pressure: Elevated blood pressure Blood pressure disposition: Elevated BP felt to be situational Impression Primary Impression: Medication reaction Additional Impressions: Gastroparesis Constipation Scribe Attestation The scribe's documentation has been prepared under my direction and personally reviewed by me in its entirety. I confirm that the note above accurately reflects all work, treatment, procedures, and medical decision making performed by me. Departure Information Dispostion Home / Self-Care Prescriptions Ondasetron Odt (ZOFRAN ODT) 4 Mg Tab 4 MG SL Q6H for Nausea, #10 TAB Prov: Sheridan Mullins M.D. 02/21/18 Carbidopa (Carbidopa) 25 Mg Tab 12.5 MG PO TID for 30 Days, #45 TAB Prov: Sheridan Mullins M.D. 02/21/18 Referrals Reginaldo Ramirez D.O. (PCP) Maicol Hemphill M.D. Forms HOME CARE DOCUMENTATION FORM, IMPORTANT VISIT INFORMATION, WORK / SCHOOL INSTRUCTIONS Patient Instructions My [facility] Additional Instructions Diagnosis: Medication intolerance, gastroparesis, constipation MiraLAX 1 capful 1-2 times daily as needed for bowel movement. Dulcolax suppository upon return home. Take your half tablet of Sinemet 3 times daily as directed by your neurologist. You may take an additional one half tablet or 12.5 mg of carbidopa with your Sinemet to alleviate nausea. Zofran 4 mg ODT every 6 hours as needed for nausea. Drink plenty of clear fluids. Return to the ED for worsening of symptoms or any medical concerns. Problem Qualifiers
[2018-02-21 15:04] LABS: BASO % 0.1 %; BASO ABS # 0.01 K/uL (0-0.2); EOS % 0.1 %; EOS ABS # 0.01 K/uL (0-0.5); HEMATOCRIT 37.3 % (37-47); HEMOGLOBIN 12.9 g/dL (12.0-16.0); IG# 0.02 K/uL (0.00-0.02); LYMPH % 24.3 %; LYMPH ABS # 2.39 K/uL (1.2-3.4); MEAN CELL VOLUME 84.2 fL (80-100); MEAN CORPUSCULAR HEMOGLOBIN 29.1 pg (25-34); MEAN CORPUSCULAR HGB CONC 34.6 g/dl (32-36); MEAN PLATELET VOLUME 10.3 fL (7.4-10.4); MONO % 2.6 %; MONO ABS # 0.26 K/uL (0.11-0.59); NEUT % 72.7 %; NEUT ABS # 7.13 K/uL (1.4-6.5); PLATELET COUNT 198 K/uL (130-400); RED CELL DISTRIBUTION WIDTH CV 13.5 % (11.5-14.5); WHITE BLOOD COUNT 9.82 K/uL (4.8-10.8)
[2018-02-21 15:23] LABS: ALBUMIN 4.1 gm/dl (3.4-5.0); CALCIUM 10.5 mg/dl (8.5-10.1); CREATININE 1.2 mg/dl (0.60-1.20); TOTAL PROTEIN 9.3 gm/dl (6.4-8.2)
[2018-02-21] MEDS ORDERED: LISINOPRIL 5 MG TAB PO STA (16:01)
[2018-02-21] MEDS ORDERED: METOPROLOL SUCC 50MG EXT REL TAB PO STA (16:01)
[2018-02-21] MEDS ORDERED: BISACODYL 10 MG SUPP PR STA (16:25)
[2018-02-21] MEDS ORDERED: POLYETHYLENE (MIRALAX) 17 GM PACK PO STA ×2 (16:25→17:18)
--- NOTE | 2018-02-21 16:35 | DIAGNOSTIC IMAGING REPORT ---
AP CHEST WITH ABDOMINAL SERIES CLINICAL HISTORY: Vomiting. FINDINGS: An AP chest radiograph is compared to study dated 12/12/2017. The examination is degraded by patient rotation. A 2-lead cardiac AICD is unchanged in position and partially obscures the left mid chest. The patient is status post midline sternotomy. The heart is enlarged and there is atherosclerotic calcification of the thoracic and. The pulmonary mass culture is noncongested. Chronic interstitial thickening is similar to previous. No airspace consolidation or large pleural effusion is identified. No pneumothorax is seen. The skeletal structures are osteopenic. Degenerative change is seen in the shoulders and thoracic spine. The bony thorax is grossly intact. Supine and erect abdominal radiographs are correlated with abdominal CT dated 12/12/2017. Cholecystectomy clips are seen in the right upper quadrant. There is a nonobstructed abdominal bowel gas pattern. No evidence of intraperitoneal free air is seen. The liver appears enlarged. There are no abnormal abdominal calcifications. Phleboliths are noted in the pelvis. The lumbosacral spine and bony pelvis appear intact. Mild lumbosacral spondylosis is observed. Degenerative changes also seen in the hips. IMPRESSION: 1. Cardiomegaly and AICD. There is no radiographic evidence of congestive failure. 2. The lungs are clear. 3. Nonobstructed abdominal bowel gas pattern. Electronically signed by: Diego Ricardo M.D. 02/21/2018 4:33 PM Dictated Date/Time: 02/21/2018 4:31 PM
[2018-02-21 16:52] VITALS: BP 190/95; PULSE 78; O2SAT 100
[2018-02-21] MEDS ORDERED: CARBIDOPA/LEVODOPA 25/100MG TAB PO STA (16:58)
[2018-02-21] MEDS ORDERED: ONDA4TAB10 SL (17:24)
[2018-02-21] MEDS ORDERED: CARB1TAB94 PO (17:24)
== END 2018-02-21 17:22 | disposition home or self-care (01) ==
LOC: EDBD 13:56 → C.EDB 13:57
DX: T88.7XXA Unspecified adverse effect of drug or medicament, initial encounter (principal); K31.84 Gastroparesis; K59.00 Constipation, unspecified; X58.XXXA Exposure to other specified factors, initial encounter; N17.9 Acute kidney failure, unspecified; J45.909 Unspecified asthma, uncomplicated; N18.3 Chronic kidney disease, stage 3 (moderate); E11.9 Type 2 diabetes mellitus without complications; K21.9 Gastro-esophageal reflux disease without esophagitis; I10 Essential (primary) hypertension; E66.9 Obesity, unspecified; G47.33 Obstructive sleep apnea (adult) (pediatric); M19.90 Unspecified osteoarthritis, unspecified site; E78.00 Pure hypercholesterolemia, unspecified; Z79.4 Long term (current) use of insulin; Z91.030 Bee allergy status; Z88.5 Allergy status to narcotic agent; Z88.8 Allergy status to other drugs, medicaments and biological substances

== ENCOUNTER 2018-02-24 10:22 | Inpatient (IN) | payer OTHER ==
[~2018-02-24] VITALS: Ht 157.5 cm; Wt 81.4 kg
[~2018-02-24 10:22] MED LIST changes: +CARB1TAB94 PO; +ONDA4TAB10 SL
[2018-02-24] MEDS ORDERED: SODIUM CHLORIDE 0.9% 1000ML 1,000 ML IV STA (10:43)
[2018-02-24 10:59] LABS: BASO % 0.2 %; BASO ABS # 0.03 K/uL (0-0.2); EOS % 0.1 %; EOS ABS # 0.01 K/uL (0-0.5); HEMATOCRIT 43.5 % (37-47); HEMOGLOBIN 14.5 g/dL (12.0-16.0); IG# 0.05 K/uL (0.00-0.02); LYMPH % 30.2 %; LYMPH ABS # 3.92 K/uL (1.2-3.4); MEAN CELL VOLUME 84.5 fL (80-100); MEAN CORPUSCULAR HEMOGLOBIN 28.2 pg (25-34); MEAN CORPUSCULAR HGB CONC 33.3 g/dl (32-36); MEAN PLATELET VOLUME 10.9 fL (7.4-10.4); MONO % 8.2 %; MONO ABS # 1.07 K/uL (0.11-0.59); NEUT % 60.9 %; NEUT ABS # 7.91 K/uL (1.4-6.5); PLATELET COUNT 252 K/uL (130-400); RED CELL DISTRIBUTION WIDTH CV 13.7 % (11.5-14.5); RED CELL DISTRIBUTION WIDTH SD 41.7 fL (36.4-46.3); WHITE BLOOD COUNT 12.99 K/uL (4.8-10.8)
--- NOTE | 2018-02-24 11:00 | DIAGNOSTIC IMAGING REPORT ---
CHEST ONE VIEW PORTABLE CLINICAL HISTORY: EVALUATE ALTERED MENTAL STATUS/WEAKNESS dyspnea COMPARISON STUDY: 02/21/2018 FINDINGS: The bones soft tissues and hemidiaphragms are normal. The cardiomediastinal silhouette is normal. The lungs are clear. The pulmonary vasculature is normal. IMPRESSION: Negative chest. Bipolar cardiac pacemaker in good position. The above report was generated using voice recognition software. It may contain grammatical, syntax or spelling errors. Electronically signed by: James Nickerson M.D. 02/24/2018 10:58 AM Dictated Date/Time: 02/24/2018 10:58 AM
[2018-02-24 11:21] LABS: ALBUMIN 3.9 gm/dl (3.4-5.0); CALCIUM 9.8 mg/dl (8.5-10.1); CREATININE 1.53 mg/dl (0.60-1.20)
[2018-02-24 11:29] LABS: TOTAL PROTEIN 9.4 gm/dl (6.4-8.2)
[2018-02-24 11:49] LABS: INR 1.1 (0.9-1.1); PTT PATIENT 24.2 SECONDS (21.0-31.0)
[2018-02-24 12:52] VITALS: O2SAT 96; Ht 157.5 cm; Wt 81.4 kg
--- NOTE | 2018-02-24 13:22 | DIAGNOSTIC IMAGING REPORT ---
CT OF THE HEAD WITHOUT CONTRAST CLINICAL HISTORY: Confusion. COMPARISON STUDY: Head CT February 13, 2018. CT DOSE: 537.48 mGy.cm TECHNIQUE: Helical axial images of the head were obtained without IV contrast. Automated exposure control was utilized for the study. A dose lowering technique was utilized adhering to the principles of ALARA. FINDINGS: No acute intracranial hemorrhage, midline shift or mass effect is present. Mild ventricular dilatation is unchanged and likely due to atrophy given sulcal enlargement. Basilar cisterns are patent. There are no extra axial collections. White matter hypodensity suggests small vessel disease. There are no findings to suggest acute dural sinus thrombosis or acute territorial infarct. There are no significant calvarial abnormalities. Minimal secretions within the right sphenoid sinus are noted. Mastoid air cells are clear. IMPRESSION: No acute intracranial findings. Electronically signed by: Osvaldo Verde M.D. 02/24/2018 1:21 PM Dictated Date/Time: 02/24/2018 1:19 PM
--- NOTE | 2018-02-24 14:21 | History and Physical ---
History & Physical Date & Time of Service: Feb 24, 2018 at 14:21 Chief Complaint: Near Syncope Primary Care Physician: Reginaldo Ramirez D.O. History of Present Illness Source: family, clinic records Patient brought in to the ED after near syncopal episode. As per history of the patient's family member sister Arabella Worley [phone] and Emergency room provider Dr. Perez, patient apparently had near syncopal event when using the bathroom and felt that the defibrillator shocked her. Interrogation of the defibrillator was down in the ER and that high voltage therapy was delivered by the device for episode of VT/VF. This story was apparently given to the patient by the emergency room physician initially but during the emergency stay the patient became more confused. Her CT head did not show evidence for intracranial bleed. The urine was negative for bacteria. When examined by hospitalist, the patient was awake and verbal but sometimes slow to respond to questions although at other sometimes able to answer other questions, she generally did not seem to be able to stay focused on the conversation and appeared easily distracted. Hospitalist called the patient's family member and she reports that that she does get more confused when she is ill with urinary tract infection for example. Patient apparently had been prescribed carbidopa by neurology Dr. Hemphill on SaturdayFebruary 17 and as per my phone call with his colleague Dr. Ervin the indication was apparently for gait dysfunction. Patient 's sister denies of ever having diagnosis of Parkinson's disease. She also elaborated that patient was having vomiting symptoms subsequently on Saturday/ Saturday for which she was later evaluated in the ER at [facility] on Saturday. Past Medical/Surgical History Medical Problems: (1) Abdominal pain (2) Abdominal pain, generalized (3) Adrenal nodule (4) SABRINA (acute kidney injury) (5) Altered mental state (6) Altered mental status (7) Altered mental status (8) Altered mental status (9) Ambulatory dysfunction (10) Ambulatory dysfunction (11) Aortocoronary Bypass (12) Asthma, Unspecified (13) Blood in stool (14) Cardiomegaly (15) Chronic abdominal pain (16) CKD (chronic kidney disease), stage III (17) Constipation (18) Contusion of multiple sites (19) Coronary atherosclerosis of [place] coronary vessel (20) Dehydration (21) Dehydration (22) Dehydration (23) Depression (24) Diab Nany Wo Compl, Type Ii Or Unspec Type, Not Uncntrld (25) Diabetic nephropathy (26) Diabetic retinopathy (27) Dizziness (28) Dizziness (29) Epigastric abdominal pain (30) Fall (31) Fever (32) Gastroparesis (33) Generalized weakness (34) GERD (gastroesophageal reflux disease) (35) Hyperglycemia (36) Hyperglycemia (37) Hypertension Nos (38) Influenza-like symptoms (39) Intractable nausea and vomiting (40) Medication reaction (41) Nausea (42) Neuropathy in diabetes (43) Obesity, Class II, BMI 35-39.9, with comorbidity (44) Obstructive Sleep Apnea (Adult) (Pediatric) (45) Osteoarthritis (46) Pacemaker (47) Polymyalgia rheumatica (48) Presence of combination internal cardiac defibrillator (ICD) and pacemaker (49) Prolonged QT interval (50) Pure Hypercholesterolem (51) Sepsis (52) Sepsis (53) SIRS (systemic inflammatory response syndrome) (54) Ureteral calculus (55) UTI (urinary tract infection) (56) UTI (urinary tract infection) (57) Ventricular fibrillation (58) Vomiting Surgical Problems: (1) H/O eye surgery (2) History of appendectomy (3) History of cholecystectomy (4) History of hysterectomy (5) History of hysterectomy (6) S/P triple vessel bypass Family History Diabetes mellitus FATHER BROTHER FH: cancer FH: lung disease FHx: heart disease MOTHER Hypertension MOTHER Kidney disease Kidney stones Social History Smoking Status: Former Smoker Drug Use: none Marital Status: Housing status: lives with family Occupational Status: unemployed, disabled Immunizations History of Influenza Vaccine: N/A History of Tetanus Vaccine?: No History of Pneumococcal: No History of Hepatitis B Vaccine: No Allergies Coded Allergies: BEE STING (Verified Allergy, Severe, SWELLING, 02/24/18) Lidocaine (Verified Allergy, Severe, ANAPHYLAXIS, 02/24/18) Morphine (Verified Allergy, Mild, itching, 02/24/18) Tramadol (Verified Allergy, Mild, ITCHING, 02/24/18) Trazodone (Verified Allergy, Mild, ITCHING, 02/24/18) Home Medications Scheduled Aspirin (Aspirin Ec), 81 MG PO QAM Atorvastatin (Lipitor), 40 MG PO DAILY Carbidopa (Carbidopa), 12.5 MG PO TID Ciclopirox (Ciclopirox Nail Lacquer), 1 APPLN TOP DAILY Clobetasol Propionate (Clobetasol Propionate), 1 APPLN TOP DAILY Clopidogrel Bisulfate (Plavix), 75 MG PO HS Cyclosporine (Ophth) (Restasis), 1 DROPS OP BID Diclofenac Sodium (Topical) (Voltaren 1% Top Gel), 1 APPLN TD QID Escitalopram Oxalate (Lexapro), 15 MG PO QAM Fluticasone Propionate (Flovent Hfa), 2 PUFFS INH BID Hydroquinone (Tl Hydroquinone), 1 APPLN TOP BID Insulin Aspart (Novolog Flexpen), 7 UNITS SQ ACHS Insulin Glargine (Lantus Solostar), 23 UNITS SQ DAILY Ipratropium [place] (Nasal) (Ipratropium [place]), 2 SPRAYS DANIEL BID Isosorbide Mononitrate Ext Rel (Imdur Ext Rel), 90 MG PO QAM Ketoconazole (Topical) (Ketoconazole), 1 APPLN TOP DAILY Lactobacillus (Acidophilus Extra Strengt), 1 CAP PO DAILY Lisinopril (Zestril), 5 MG PO DAILY Metoprolol Succinate (Metoprolol Succinate ER), 50 MG PO BID Metronidazole (Topical) (Metrocream), TOP DAILY Nitroglycerin (Nitrostat), 0.4 MG UT PRN Pantoprazole (Pantoprazole Sodium), 40 MG PO DAILY Tamsulosin HCl (Tamsulosin HCl), 0.4 MG PO QAM Triamcinolone Acet (Aristocort 0.1%), 1 APPL TOP BID Scheduled PRN Albuterol Hfa (Ventolin Hfa), 2 PUFFS INH Q4H PRN for Wheezing Docusate Sodium (Colace), 100 MG PO BID PRN for Constipation Magnesium Citrate (Magnesium Citrate), 120 ML PO DAILY PRN for Constipation Ondansetron Hcl (Zofran), 4 MG SL Q8 PRN for Nausea Polyethylene (Miralax), 17 GM PO DAILY PRN for Constipation Senna/Docusate Sod (Senokot S), 1 TAB PO DAILY PRN for Constipation Review of Systems A complete review of systems could not be obtained from [facility] patient give her altered mental system Abdomen: + vomiting Physical Exam Vital Signs Date Time Temp Pulse Resp B/P (MAP) Pulse Ox O2 Delivery O2 Flow Rate FiO2 02/24/18 13:15 63 18 160/78 97 02/24/18 12:52 96 Room Air 02/24/18 12:22 61 16 163/76 96 Room Air 02/24/18 11:18 75 111/65 94 Room Air 86 100/74 02/24/18 10:30 99 Room Air 02/24/18 10:30 36.9 77 20 148/77 99 Room Air General Appearance: + pertinent finding (no acute physical distress but appears confused) Head: normocephalic Eyes: normal inspection, EOMI, sclerae normal ENT: hearing grossly normal, pharynx normal Neck: supple, no adenopathy, no JVD, trachea midline Respiratory/Chest: chest non-tender, lungs clear, normal breath sounds, no respiratory distress, no accessory muscle use Cardiovascular: regular rate, rhythm, no edema, normal peripheral pulses Abdomen/GI: normal bowel sounds, non tender, soft, no organomegaly, no pulsatile mass Extremities/Musculoskelatal: no calf tenderness, normal capillary refill, no pedal edema Neurologic/Psych: + disoriented Skin: normal color, warm/dry, no rash Diagnostics Laboratory Results Results Past 24 Hours Test 02/24/18 10:05 02/24/18 11:33 02/24/18 11:44 02/24/18 12:50 Range/Units White Blood Count 12.99 4.8-10.8 K/uL Red Blood Count 5.15 4.2-5.4 M/uL Hemoglobin 14.5 12.0-16.0 g/dL Hematocrit 43.5 37-47 % Mean Corpuscular Volume 84.5 80-100 fL Mean Corpuscular Hemoglobin 28.2 25-34 pg Mean Corpuscular Hemoglobin Concent 33.3 32-36 g/dl Platelet Count 252 130-400 K/uL Mean Platelet Volume 10.9 7.4-10.4 fL Neutrophils (%) (Auto) 60.9 % Lymphocytes (%) (Auto) 30.2 % Monocytes (%) (Auto) 8.2 % Eosinophils (%) (Auto) 0.1 % Basophils (%) (Auto) 0.2 % Neutrophils # (Auto) 7.91 1.4-6.5 K/uL Lymphocytes # (Auto) 3.92 1.2-3.4 K/uL Monocytes # (Auto) 1.07 0.11-0.59 K/uL Eosinophils # (Auto) 0.01 0-0.5 K/uL Basophils # (Auto) 0.03 0-0.2 K/uL RDW Standard Deviation 41.7 36.4-46.3 fL RDW Coefficient of Variation 13.7 11.5-14.5 % Immature Granulocyte % (Auto) 0.4 % Immature Granulocyte # (Auto) 0.05 0.00-0.02 K/uL Sodium Level 135 136-145 mmol/L Potassium Level 4.0 3.5-5.1 mmol/L Chloride Level 95 98-107 mmol/L Carbon Dioxide Level 28 21-32 mmol/L Anion Gap 10.0 3-11 mmol/L Blood Urea Nitrogen 24 7-18 mg/dl Creatinine 1.53 0.60-1.20 mg/dl Est Creatinine Clear Calc Drug Dose 36.0 ml/min Estimated GFR () 41.2 Estimated GFR (Non- 35.6 BUN/Creatinine Ratio 15.8 10-20 Random Glucose 154 70-99 mg/dl Calcium Level 9.8 8.5-10.1 mg/dl Magnesium Level 2.1 1.8-2.4 mg/dl Total Bilirubin 0.7 0.2-1 mg/dl Direct Bilirubin 0.2 0-0.2 mg/dl Aspartate Amino Transf (AST/SGOT) 25 15-37 U/L Alanine Aminotransferase (ALT/SGPT) 25 12-78 U/L Alkaline Phosphatase 61 45-117 U/L Troponin I 0.026 0-0.045 ng/ml Total Protein 9.4 6.4-8.2 gm/dl Albumin 3.9 3.4-5.0 gm/dl Thyroid Stimulating Hormone (TSH) 2.750 0.300-4.500 uIu/ml Prothrombin Time 11.1 9.0-12.0 SECONDS Prothromb Time International Ratio 1.1 0.9-1.1 Activated Partial Thromboplast Time 24.2 21.0-31.0 SECONDS Partial Thromboplastin Ratio 0.9 Venous Blood pH 7.37 7.36-7.41 Venous Blood Partial Pressure CO2 56 38.0-50.0 mmHg Venous Blood Partial Pressure O2 30 mmHg Venous Blood HCO3 32 mmol/L Venous Blood Oxygen Saturation < 60.0 % Venous Blood Base Excess 5.0 mEq/L Urine Color YELLOW Urine Appearance CLEAR CLEAR Urine pH 5.0 4.5-7.5 Urine Specific [place] 1.009 1.000-1.030 Urine Protein NEG NEG Urine Glucose (UA) NEG NEG Urine Ketones NEG NEG Urine Occult Blood NEG NEG Urine Nitrite NEG NEG Urine Bilirubin NEG NEG Urine Urobilinogen NEG NEG Urine Leukocyte Esterase TRACE NEG Urine WBC (Auto) 1-5 0-5 /hpf Urine RBC (Auto) 0-4 0-4 /hpf Urine Hyaline Casts (Auto) 5-10 0-5 /lpf Urine Epithelial Cells (Auto) 20-30 0-5 /lpf Urine Bacteria (Auto) NEG NEG Test 02/24/18 14:06 02/24/18 14:08 Range/Units Microbiology Results 02/24/18 Blood Culture, Ordered Pending 02/24/18 Blood Culture, Ordered Pending Impression Assessment and Plan CAD, s/p HEIDY x2 (LM and LAD) in 06/2012 with prior CABG (SVG to OM, SVT to OM2, MEHTA to LAD) on 04/05/1998 at [facility] in [place] Ventricular fibrillation arrest x2 s/p dual chamber pacer/ICD ([employer]) implantation 08/2012 Defibrillator fired for episode of VT/VF on day of hospital admission 02/24/18 admit to telemetry cardiology consult home rate control medications metoprolol 50 mg BID, continue aspirin and plavix Altered Mental Status CT head negative WBC 12, 000. infection workup - UA negative, get blood cultures CXR negative, benign abdomen monitor if any fevers fevers - no clear source of infections at this time TSH normal; send B12, folic acid, RPR [facility] Neurology consult Dr. Arcadio sylvester History of Diabetes Mellitus on insulin 21 units qhs at home and 7 units TID Novolog with meals but less insulin requirement as per family member because of vomiting after being on carbidopa will place on sliding scale insulin with fingerstick glucose and continue to titrate up insulin as needed will give diabetes diet will monitor whether still vomiting symptoms given altered mental status will like to avoid antiemetics for now Acute kidney Injury serum creatinine 1.53 received IV fluids in the ED Start IV fluids 75 cc/hr Clear chest X ray History of sleep apnea CPAP ordered History of asthma no respiratory distress continue home inhalers Reported gait dysfunction for which patient was on carbidopa stop carbidopa get PT/OT DVT ppx : SCDs Family sister Arabella [phone] Advanced Directives Existing Living Will: Yes Existing Power of Tools Programmer: Yes (ARABELLA SISTER ) Resuscitation Status VTE Prophylaxis Will order VTE Prophylaxis: Yes
[2018-02-24] MEDS ORDERED: ALBUTEROL HFA 8 GM INHALER INH PRN (14:45)
[2018-02-24] MEDS ORDERED: GLUCOSE 40% GEL 15 GM TUBE PO PRN (15:00)
[2018-02-24] MEDS ORDERED: CARBOHYDRATES FOR HYPOGLYCEMIA PO PRN (15:00)
[2018-02-24] MEDS ORDERED: GLUCAGON FOR INJ 1 MG VIAL SQ PRN (15:00)
[2018-02-24] MEDS ORDERED: GLUCOSE 10 TABS/TUBE PO PRN (15:00)
[2018-02-24] MEDS ORDERED: DEXTROSE 50% 50 ML SYR IV PRN (15:00)
[2018-02-24 16:00] VITALS: BP 157/86; PULSE 64; TEMP 37; O2SAT 95
[2018-02-24] MEDS ORDERED: INSULIN ASPART 100 UNITS/ML 3 ML PEN SC SCH (16:30)
[2018-02-24] MEDS: SODIUM CHLORIDE 0.9% 1000ML 1,000 ML IV SCH (16:44)
--- NOTE | 2018-02-24 16:53 | EMERGENCY ROOM VISIT NOTE ---
History Report prepared by Melanie: Farooq Cole Under the Supervision of: Dr. Gaurang Perez D.O. First contact with patient: 10:17 Chief Complaint: SYNCOPE (NEAR SYNCOPE) Stated Complaint: ALTERED MENTAL STATUS, PRESENCE OF COMBINATION Nursing Triage Summary: patient to ed via als, per medic, family was helping patient to bathroom, had near-syncopal episode and was shocked by defibrillator. patient denies syncope, states "I sat down and the toilet and had the shock of my life." patient denies other symptoms History of Present Illness The patient is a 62 year old female who presents to the Emergency Room with complaints of a resolved defibrillator shock and near-syncope prior to arrival. The patient states that she was trying to get up and walk to the bathroom and sat down on the toilet when her defibrillator shocked her and she felt like she was going to pass out. She states that she did not lose consciousness, fall, or hit her head. She notes that she lives with her sister. The patient denies chest pain, abdominal pain, visual changes, headache, or shortness of breath. The patient states that she has been shocked in the past. History is limited as the patient is confused. Source of History: patient Onset: prior to arrival Position: other (global) Quality: other (near-syncope, defibrillator shock) Timing: resolved Associated Symptoms: No headache, No chest pain, No SOB, No abdominal pain Review of Systems See HPI for pertinent positives & negatives. A total of 10 systems reviewed and were otherwise negative. Past Medical & Surgical Medical Problems: (1) Abdominal pain (2) SABRINA (acute kidney injury) (3) Altered mental state (4) Ambulatory dysfunction (5) Aortocoronary Bypass (6) Asthma, Unspecified (7) CKD (chronic kidney disease), stage III (8) Coronary atherosclerosis of [place] coronary vessel (9) Depression (10) Diab Nany Wo Compl, Type Ii Or Unspec Type, Not Uncntrld (11) Diabetic nephropathy (12) Diabetic retinopathy (13) Dizziness (14) GERD (gastroesophageal reflux disease) (15) Hypertension Nos (16) Neuropathy in diabetes (17) Obesity, Class II, BMI 35-39.9, with comorbidity (18) Obstructive Sleep Apnea (Adult) (Pediatric) (19) Osteoarthritis (20) Pacemaker (21) Polymyalgia rheumatica (22) Presence of combination internal cardiac defibrillator (ICD) and pacemaker (23) Pure Hypercholesterolem (24) Sepsis (25) Ureteral calculus (26) Ventricular fibrillation Surgical Problems: (1) H/O eye surgery (2) History of appendectomy (3) History of cholecystectomy (4) History of hysterectomy (5) History of hysterectomy (6) S/P triple vessel bypass Social History Problems: (1) Diabetes mellitus Family History Diabetes mellitus FATHER BROTHER FH: cancer FH: lung disease FHx: heart disease MOTHER Hypertension MOTHER Kidney disease Kidney stones Social History Smoking Status: Former Smoker Alcohol Use: occasionally Drug Use: none Marital Status: Housing Status: lives alone Occupation Status: unemployed, disabled Current/Historical Medications Scheduled Aspirin (Aspirin Ec), 81 MG PO QAM Atorvastatin (Lipitor), 40 MG PO DAILY Carbidopa (Carbidopa), 12.5 MG PO TID Ciclopirox (Ciclopirox Nail Lacquer), 1 APPLN TOP DAILY Clobetasol Propionate (Clobetasol Propionate), 1 APPLN TOP DAILY Clopidogrel Bisulfate (Plavix), 75 MG PO HS Cyclosporine (Ophth) (Restasis), 1 DROPS OP BID Diclofenac Sodium (Topical) (Voltaren 1% Top Gel), 1 APPLN TD QID Escitalopram Oxalate (Lexapro), 15 MG PO QAM Fluticasone Propionate (Flovent Hfa), 2 PUFFS INH BID Hydroquinone (Tl Hydroquinone), 1 APPLN TOP BID Insulin Aspart (Novolog Flexpen), 7 UNITS SQ ACHS Insulin Glargine (Lantus Solostar), 23 UNITS SQ DAILY Ipratropium [place] (Nasal) (Ipratropium [place]), 2 SPRAYS DANIEL BID Isosorbide Mononitrate Ext Rel (Imdur Ext Rel), 90 MG PO QAM Ketoconazole (Topical) (Ketoconazole), 1 APPLN TOP DAILY Lactobacillus (Acidophilus Extra Strengt), 1 CAP PO DAILY Lisinopril (Zestril), 5 MG PO DAILY Metoprolol Succinate (Metoprolol Succinate ER), 50 MG PO BID Metronidazole (Topical) (Metrocream), TOP DAILY Nitroglycerin (Nitrostat), 0.4 MG UT PRN Pantoprazole (Pantoprazole Sodium), 40 MG PO DAILY Tamsulosin HCl (Tamsulosin HCl), 0.4 MG PO QAM Triamcinolone Acet (Aristocort 0.1%), 1 APPL TOP BID Scheduled PRN Albuterol Hfa (Ventolin Hfa), 2 PUFFS INH Q4H PRN for Wheezing Docusate Sodium (Colace), 100 MG PO BID PRN for Constipation Magnesium Citrate (Magnesium Citrate), 120 ML PO DAILY PRN for Constipation Ondansetron Hcl (Zofran), 4 MG SL Q8 PRN for Nausea Polyethylene (Miralax), 17 GM PO DAILY PRN for Constipation Senna/Docusate Sod (Senokot S), 1 TAB PO DAILY PRN for Constipation Allergies Coded Allergies: BEE STING (Verified Allergy, Severe, SWELLING, 02/24/18) Lidocaine (Verified Allergy, Severe, ANAPHYLAXIS, 02/24/18) Morphine (Verified Allergy, Mild, itching, 02/24/18) Tramadol (Verified Allergy, Mild, ITCHING, 02/24/18) Trazodone (Verified Allergy, Mild, ITCHING, 02/24/18) Physical Exam Vital Signs Date Time Temp Pulse Resp B/P (MAP) Pulse Ox O2 Delivery O2 Flow Rate FiO2 02/24/18 13:15 63 18 160/78 97 02/24/18 12:52 96 Room Air 02/24/18 12:22 61 16 163/76 96 Room Air 02/24/18 11:18 75 111/65 94 Room Air 86 100/74 02/24/18 10:39 76 02/24/18 10:30 99 Room Air 02/24/18 10:30 36.9 77 20 148/77 99 Room Air Physical Exam GENERAL: Sitting up in bed, disheveled, confused, non-toxic EYE EXAM: normal conjunctiva. PERRL and EOM's intact. OROPHARYNX: no exudate, no erythema, lips, buccal mucosa, and tongue normal and mucous membranes are moist NECK: supple, no nuchal rigidity, no adenopathy, non-tender LUNGS: Clear to auscultation. Normal chest wall mechanics HEART: no murmurs, S1 normal and S2 normal ABDOMEN: abdomen soft, non-tender, normo-active bowel sounds, no masses, no rebound or guarding. BACK: Back is symmetrical on inspection and there is no deformity, no midline tenderness, no CVA tenderness. SKIN: no rashes and no bruising UPPER EXTREMITIES: upper extremities are grossly normal. LOWER EXTREMITIES: No pitting edema. NEURO EXAM: Awake, alert, follows commands, falls asleep quickly. Intermittently oriented to place and person but intermittently confused, cranial nerves II-XII intact, normal speech, no weakness of arms, no weakness of legs. No drift. Finger to nose intact. Gross sensation intact. Medical Decision & Procedures ER Provider Diagnostic Interpretation: Radiology results as stated below per my review and the radiologist's interpretation: CT OF THE HEAD WITHOUT CONTRAST CLINICAL HISTORY: Confusion. COMPARISON STUDY: Head CT February 13, 2018. CT DOSE: 537.48 mGy.cm TECHNIQUE: Helical axial images of the head were obtained without IV contrast. Automated exposure control was utilized for the study. A dose lowering technique was utilized adhering to the principles of ALARA. FINDINGS: No acute intracranial hemorrhage, midline shift or mass effect is present. Mild ventricular dilatation is unchanged and likely due to atrophy given sulcal enlargement. Basilar cisterns are patent. There are no extra axial collections. White matter hypodensity suggests small vessel disease. There are no findings to suggest acute dural sinus thrombosis or acute territorial infarct. There are no significant calvarial abnormalities. Minimal secretions within the right sphenoid sinus are noted. Mastoid air cells are clear. IMPRESSION: No acute intracranial findings. Electronically signed by: Osvaldo Verde M.D. 02/24/2018 1:21 PM Dictated Date/Time: 02/24/2018 1:19 PM CHEST ONE VIEW PORTABLE CLINICAL HISTORY: EVALUATE ALTERED MENTAL STATUS/WEAKNESS dyspnea COMPARISON STUDY: 02/21/2018 FINDINGS: The bones soft tissues and hemidiaphragms are normal. The cardiomediastinal silhouette is normal. The lungs are clear. The pulmonary vasculature is normal. IMPRESSION: Negative chest. Bipolar cardiac pacemaker in good position. The above report was generated using voice recognition software. It may contain grammatical, syntax or spelling errors. Electronically signed by: James Nickerson M.D. 02/24/2018 10:58 AM Dictated Date/Time: 02/24/2018 10:58 AM Laboratory Results 02/24/18 10:05 Red Blood Count 5.15, Mean Corpuscular Volume 84.5, Mean Corpuscular Hemoglobin 28.2, Mean Corpuscular Hemoglobin Concent 33.3, Mean Platelet Volume 10.9, Neutrophils (%) (Auto) 60.9, Lymphocytes (%) (Auto) 30.2, Monocytes (%) (Auto) 8.2, Eosinophils (%) (Auto) 0.1, Basophils (%) (Auto) 0.2, Neutrophils # (Auto) 7.91, Lymphocytes # (Auto) 3.92, Monocytes # (Auto) 1.07, Eosinophils # (Auto) 0.01, Basophils # (Auto) 0.03 02/24/18 10:05 Test 02/24/18 10:05 02/24/18 11:33 02/24/18 11:44 02/24/18 12:50 White Blood Count 12.99 K/uL (4.8-10.8) Red Blood Count 5.15 M/uL (4.2-5.4) Hemoglobin 14.5 g/dL (12.0-16.0) Hematocrit 43.5 % (37-47) Mean Corpuscular Volume 84.5 fL (80-100) Mean Corpuscular Hemoglobin 28.2 pg (25-34) Mean Corpuscular Hemoglobin Concent 33.3 g/dl (32-36) Platelet Count 252 K/uL (130-400) Mean Platelet Volume 10.9 fL (7.4-10.4) Neutrophils (%) (Auto) 60.9 % Lymphocytes (%) (Auto) 30.2 % Monocytes (%) (Auto) 8.2 % Eosinophils (%) (Auto) 0.1 % Basophils (%) (Auto) 0.2 % Neutrophils # (Auto) 7.91 K/uL (1.4-6.5) Lymphocytes # (Auto) 3.92 K/uL (1.2-3.4) Monocytes # (Auto) 1.07 K/uL (0.11-0.59) Eosinophils # (Auto) 0.01 K/uL (0-0.5) Basophils # (Auto) 0.03 K/uL (0-0.2) RDW Standard Deviation 41.7 fL (36.4-46.3) RDW Coefficient of Variation 13.7 % (11.5-14.5) Immature Granulocyte % (Auto) 0.4 % Immature Granulocyte # (Auto) 0.05 K/uL (0.00-0.02) Anion Gap 10.0 mmol/L (3-11) Est Creatinine Clear Calc Drug Dose 36.0 ml/min Estimated GFR () 41.2 Estimated GFR (Non- 35.6 BUN/Creatinine Ratio 15.8 (10-20) Calcium Level 9.8 mg/dl (8.5-10.1) Magnesium Level 2.1 mg/dl (1.8-2.4) Total Bilirubin 0.7 mg/dl (0.2-1) Direct Bilirubin 0.2 mg/dl (0-0.2) Aspartate Amino Transf (AST/SGOT) 25 U/L (15-37) Alanine Aminotransferase (ALT/SGPT) 25 U/L (12-78) Alkaline Phosphatase 61 U/L (45-117) Troponin I 0.026 ng/ml (0-0.045) Total Protein 9.4 gm/dl (6.4-8.2) Albumin 3.9 gm/dl (3.4-5.0) Thyroid Stimulating Hormone (TSH) 2.750 uIu/ml (0.300-4.500) Prothrombin Time 11.1 SECONDS (9.0-12.0) Prothromb Time International Ratio 1.1 (0.9-1.1) Activated Partial Thromboplast Time 24.2 SECONDS (21.0-31.0) Partial Thromboplastin Ratio 0.9 Venous Blood pH 7.37 (7.36-7.41) Venous Blood Partial Pressure CO2 56 mmHg (38.0-50.0) Venous Blood Partial Pressure O2 30 mmHg Venous Blood HCO3 32 mmol/L Venous Blood Oxygen Saturation < 60.0 % Venous Blood Base Excess 5.0 mEq/L Urine Color YELLOW Urine Appearance CLEAR (CLEAR) Urine pH 5.0 (4.5-7.5) Urine Specific [place] 1.009 (1.000-1.030) Urine Protein NEG (NEG) Urine Glucose (UA) NEG (NEG) Urine Ketones NEG (NEG) Urine Occult Blood NEG (NEG) Urine Nitrite NEG (NEG) Urine Bilirubin NEG (NEG) Urine Urobilinogen NEG (NEG) Urine Leukocyte Esterase TRACE (NEG) Urine WBC (Auto) 1-5 /hpf (0-5) Urine RBC (Auto) 0-4 /hpf (0-4) Urine Hyaline Casts (Auto) 5-10 /lpf (0-5) Urine Epithelial Cells (Auto) 20-30 /lpf (0-5) Urine Bacteria (Auto) NEG (NEG) Test 02/24/18 14:06 02/24/18 14:08 Laboratory results per my review. Medications Administered Medications (Trade) Dose Ordered Sig/Tera Route Start Time Stop Time Status Last Admin Dose Admin Sodium Chloride 1,000 ml @ 999 mls/hr Q1H1M STAT IV 02/24/18 10:43 02/24/18 11:43 DC 02/24/18 11:20 999 MLS/HR ECG Per My Interpretation Indication: altered mental status Rate (beats per minute): 77 Rhythm: sinus rhythm Findings: Q waves (Inferior), T-wave inversion (Septal), other (normal axis, no PVCs) Comparison ECG Date: 09/15/17 Change: no significant change (T-wave inversions are new) ED Course ED COURSE: Vital signs were reviewed and showed normal vitals The patients medical record was reviewed The above diagnostic studies were performed and reviewed. ED treatments and interventions as stated above. 1057: The patient was evaluated in room B5. A complete history and physical examination was performed. 1326: I spoke to Jose Antonio from [facility], who states that he the patient was shocked once in the past. He states it might have been SVT but is not entirely positive. 1332: I spoke to Allyson Bowling PA-C: [facility] Hospitalist. She will reevaluate the patient for hospitalization. Based on the patients age, coexisting illnesses, exam and lab findings the decision to treat as an inpatient was made. The patient remained stable while under my care. The patient will be evaluated for further management. Medical Decision Differential diagnoses includes but is not limited to toxic, metabolic, infectious, traumatic, cardiac, neurologic, hematologic, psychiatric and inflammatory etiologies. Patient is a 62-year-old female who presents the ER for near syncopal episode and being shocked at home. Upon arrival patient has been intermittently confused throughout the exam not oriented to place or year on multiple re- evaluations. Labs were obtained and show a mild leukocytosis. BMP, LFTs, bilirubin and troponin were fairly unremarkable. TSH was normal at 2.7. UA was clean. VBG with a CO2 of 56. Chest x-ray unremarkable. Patient has no other complaints. CT head was negative. Pacer was interrogated and did show SVT per [place] with one shock. This terminated the rhythm. Uncertain of the true cause of the altered mental status at this time the patient was discussed with the hospitalist and was admitted for further workup. Medication Reconcilliation Current Medication List: was personally reviewed by me Blood Pressure Screening Patient's blood pressure: Elevated blood pressure Blood pressure disposition: Elevated BP felt to be situational Consults Time Called: 1328 Consulting Physician: Allyson Bowling PA-C: [facility] Hospitalist Returned Call: [phone] Allyson Bowling PA-C: [facility] Hospitalist. She will reevaluate the patient for hospitalization. Impression Primary Impression: Altered mental state Additional Impressions: ICD (implantable cardioverter-defibrillator) discharge SVT (supraventricular tachycardia) Scribe Attestation The scribe's documentation has been prepared under my direction and personally reviewed by me in its entirety. I confirm that the note above accurately reflects all work, treatment, procedures, and medical decision making performed by me. Departure Information Dispostion Being Evaluated By Hospitalist Referrals Reginaldo Ramirez D.O. (PCP) Forms HOME CARE DOCUMENTATION FORM, IMPORTANT VISIT INFORMATION Patient Instructions My [facility] Health Problem Qualifiers Primary Impression: Altered mental state Altered mental status type: unspecified Qualified Codes: R41.82 - Altered mental status, unspecified
--- NOTE | 2018-02-24 17:47 | CARDIOLOGY CONSULTATION ---
DATE OF CONSULTATION: 02/24/2018 REFERRING PHYSICIAN: Dr. Garvey. PRIMARY CARE PHYSICIAN: Dr. Ramirez. INDICATIONS: Defibrillator firing and mental status change. HISTORY OF PRESENT ILLNESS: Patient is a very complex 62-year-old female whose history is notable for ischemic heart disease with prior coronary artery bypass grafting in 1997 receiving a saphenous vein graft to an obtuse marginal, saphenous vein graft to the second obtuse marginal, and the MEHTA graft to the LAD. She is undergoing repeat coronary intervention with drug-eluting stents to the left main and left anterior descending in 2011. Her history is notable for a ventricular fibrillation arrest x2 with dual-chamber pacemaker insertion in 2012 despite preserved LV systolic function. Underlying medical problems include chronic renal insufficiency, type 2 diabetes mellitus with nephropathy, history of past supraventricular tachycardia with defibrillator activation, chronic depression, and obstructive sleep apnea. Most recently she has been treated for parkinsonism as manifestations with recent addition of carbidopa/levodopa per review of records. Patient presents in this admission. Clinical history notable for ER presentation on 02/21/2018 with several days nausea and vomiting, possible adverse reaction to carbidopa/levodopa. This medication was adjusted, but she re-presents today with altered mental status after defibrillator activation this morning. The patient is a poor historian at times and especially poor today. She will respond to questioning though with flat affect and difficulty focusing on questioning. This morning, patient had by review of defibrillator supraventricular tachycardia which was actively paced with deterioration into VT/VF ultimately receiving a defibrillation shock. She was brought to the Emergency Room for further evaluation. She denies any specific inciting cause, though patient is unable to elicit any further details. Notes no headache or visual changes. Notes no current chest pains. Notes no tachypalpitations, syncope, or near syncope. Denies any acute weight loss or gain. Feels she has been taking her medications though again historical significance is certainly unreliable. ALLERGIES: BEE STINGS, LIDOCAINE, MORPHINE, TRAMADOL, TRAZODONE. MEDICATIONS: Per list at home were albuterol inhaler, aspirin 81 mg per day, atorvastatin 40 mg p.o. daily, carbidopa 12.5 mg t.i.d., clopidogrel 75 mg p.o. daily, Restasis, diclofenac, Colace, Lexapro, insulin, isosorbide mononitrate 90 mg daily, lisinopril 5 mg p.o. day, magnesium citrate p.r.n. constipation, Zofran, pantoprazole, MiraLax, senna, tamsulosin. PAST SURGICAL HISTORY: Notable for remote hysterectomy, cholecystectomy as described. Pacer defibrillator implantation in 2012, coronary interventions with coronary bypass grafting in 1997, and coronary intervention atherectomy in 2011. FAMILY HISTORY: Notable for heart disease per records. In mother, coronary bypass grafting at age 47. SOCIAL HISTORY: Patient is a nonsmoker, occasional alcohol user per records though patient not able to answer any further questions. PHYSICAL EXAMINATION: VITAL SIGNS: Heart rate is 73. Blood pressure is 144/90, and O2 saturations are 96% on room air. HEENT: Normocephalic and atraumatic. NECK: Thick. There is no distinct jugular venous distention. RESPIRATORY: Lungs reveal diminished breath sounds but are predominantly clear. CARDIOVASCULAR: Regular. Grade 1/6 systolic murmurs, no diastolic murmur. GASTROINTESTINAL: Abdomen is soft and nontender. EXTREMITIES: Without cyanosis or clubbing. There is no peripheral edema. There are intact distal pulses. IMPRESSION: Patient is a complex 62-year-old female with underlying history notable for ischemic heart disease with prior coronary interventions and coronary bypass grafting with preserved left ventricular systolic function. She carries a history of supraventricular tachycardia as well as ventricular tachycardia arrhythmia with indwelling pacer defibrillator. Clinical history is notable for recent ER presentation with nausea and GI upset, possible medication induced with recent initiation of carbidopa/levodopa. This medication has been held. This morning, the patient had atrial tachycardia which deteriorated, and after a paced intervention, the ventricular tachycardia, ventricular fibrillation because of underlying pacer or defibrillator firing. Laboratory studies revealed no overt findings to suggest ischemia, though further testing is pending. Heart rate and blood pressure appear well controlled currently. RECOMMENDATIONS: We will continue outpatient medications with metoprolol succinate 50 mg twice per day, Plavix 75 mg p.o daily, lisinopril [address] Guadalupe of will be consulted for further assistance in management of arrhythmias. Would avoid carbidopa/levodopa at this point in time. EKG on review on presentation did not demonstrate significant QT prolongation with QT interval of 450. We will follow patient in the hospital. Current mental status is such that patient does not answer questions appropriately without focal deficit, questions of exacerbation of usual baseline versus acute event. We will follow along in the hospital.
[2018-02-24 19:48] VITALS: BP 153/84; PULSE 65; TEMP 36.9; O2SAT 97
[2018-02-24 20:39] VITALS: O2SAT 96
[2018-02-24] MEDS: FLUTICASONE HFA 110MCG INHALER INH SCH (21:00)
[2018-02-24] MEDS: CLOPIDOGREL BISULFATE 75 MG TAB PO SCH (21:21)
[2018-02-24] MEDS: METOPROLOL SUCC 50MG EXT REL TAB PO SCH (21:21)
[2018-02-24] MEDS: INSULIN GLARGINE SOLOSTAR 100 UNITS/ML 3 ML PEN SC SCH (21:26)
[2018-02-24 22:09] VITALS: PULSE 68; O2SAT 98
[2018-02-24 22:23] VITALS: BP 129/76; PULSE 75; TEMP 36.4; O2SAT 98
[2018-02-25] VITALS (9 sets, daily range): BP systolic 64–132; BP diastolic 44–85; PULSE 59–74; TEMP 36.3–37.1; O2SAT 90–100
[2018-02-25] MEDS: SODIUM CHLORIDE 0.9% 1000ML 1,000 ML IV SCH ×3 (06:50→15:57)
[2018-02-25] MEDS: METOPROLOL SUCC 50MG EXT REL TAB PO SCH (08:04)
[2018-02-25] MEDS: ATORVASTATIN 40 MG TAB PO SCH (08:04)
[2018-02-25] MEDS: TAMSULOSIN HCL 0.4 MG CAP PO SCH (08:04)
[2018-02-25] MEDS: FLUTICASONE HFA 110MCG INHALER INH SCH ×2 (08:06→20:37)
[2018-02-25] MEDS: INSULIN ASPART 100 UNITS/ML 3 ML PEN SC SCH ×3 (08:07→17:59)
[2018-02-25] MEDS: ASPIRIN 81 MG ECTAB PO SCH (08:30)
[2018-02-25] MEDS ORDERED: ISOSORBIDE MONONITRATE 30 MG TABCR PO SCH (09:00)
[2018-02-25] MEDS ORDERED: LISINOPRIL 5 MG TAB PO SCH (09:00)
--- NOTE | 2018-02-25 10:28 | Neurology Consultation ---
Neurology Consultation Date of Consultation: Feb 25, 2018. Attending Physician: Caryn Baptiste DO Primary Care Physician: Reginaldo Ramirez D.O. Reason for Consultation: Patient is a 62-year-old, was asked to see the request of Dr. Garvey, for neurologic consultation regarding altered mental status and Parkinson's History of Present Illness Source: patient, caregiver, clinic records, hospital records Patient saw Dr. Maicol Hemphill as a new patient in March of 2017. He noted a gait disturbance and a significant polyneuropathy. There are also some Parkinson's features and mild ventriculomegaly on CT scan. There is a question of normal pressure hydrocephalus for CT scans have been followed over time at her unchanged. The patient could not get MRIs because of her implantable pacemaker and ICD device for ventricular fibrillation in the past. EMG and nerve conduction studies April 2017 showed a severe polyneuropathy involving sensory motor nerves with an additional mild left lumbosacral radiculopathy of an acute nature. Patient clinically has a severe sensory ataxia from the polyneuropathy giving gait dysfunction. I saw the patient in the hospital in August of 2017 for altered mental status and presumed meningitis. Patient refused an LP but had a gram-positive sepsis from urinary tract infection which was successfully treated with antibiotics. Her mental status cleared markedly within 48 hours. At that time, an EEG showed mild generalized neuronal dysfunction only with no focal abnormalities or spikes. CT scan of the head was unchanged. On exam she had paucity of speech and masklike face with no obvious confusion by time of discharge. She had distal resting tremor of the left thumb, cogwheeling in her arms and significant bradykinesia. The patient last saw Dr. Hemphill on February 17, 2018. The he noted progressive parkinsonism and initiated carbidopa/levodopa 25/100, 1/2 tablet 3 times a day. Patient cannot tell me if she has had any improvement or side effects to the low -dose generic Sinemet. She is just not sure. On February 24, she got up to go to the bathroom sat down on the toilet and had a discharge from the ICD device which gave her near syncope. She does not fall , lose consciousness, or of trauma. She was a little more confused. She arrived to the emergency room February 24 at 1030 hours, with a temperature 36.9, pulse 77, respiratory 20, blood pressure 148/77, and O2 saturation 99 percent. Clinically she was described as awake and alert sometimes sleepy and confused at other times. There was nothing focal on her examination apparently. CT scan of the head showed mild ventricular dilatation unchanged from previous studies. I reviewed the films and believe there is a little bit of generalized atrophy to explain the ventricular dilatation. Chest x-ray was unremarkable CBC showed a white count 12.99 with increased limbs and neutrophils Urinalysis was largely unremarkable but a sed rate was 53. B12, folate, TSH, RPR, and CK were all unremarkable. Chem profile was unremarkable. This morning, the patient is more alert and answers questions some. She is sleepy and will tend to drift off to sleep when left alone. She has a past history of insulin-dependent diabetes, severe depression, diabetic retinopathy, nephropathy, and polyneuropathy. She has sleep apnea and polymyalgia rheumatica Urine drug screen was positive for marijuana Past Medical/Surgical History Medical Problems: (1) Adrenal nodule Status: Acute (2) Altered mental status Status: Acute (3) Altered mental status Status: Acute (4) Altered mental status Status: Acute (5) Ambulatory dysfunction Status: Acute (6) Blood in stool Status: Acute (7) Cardiomegaly Status: Acute (8) Chronic abdominal pain Status: Acute (9) Contusion of multiple sites Status: Acute (10) Dehydration Status: Acute (11) Dehydration Status: Acute (12) Dehydration Status: Acute (13) Dizziness Status: Acute (14) Epigastric abdominal pain Status: Acute (15) Fall Status: Acute (16) Fever Status: Acute (17) Gastroparesis Status: Acute (18) Generalized weakness Status: Acute (19) Hyperglycemia Status: Acute (20) Hyperglycemia Status: Acute (21) ICD (implantable cardioverter-defibrillator) discharge Status: Acute (22) Influenza-like symptoms Status: Acute (23) Intractable nausea and vomiting Status: Acute (24) Medication reaction Status: Acute (25) Nausea Status: Acute (26) Prolonged QT interval Status: Acute (27) Sepsis Status: Acute (28) SIRS (systemic inflammatory response syndrome) Status: Acute (29) SVT (supraventricular tachycardia) Status: Acute (30) UTI (urinary tract infection) Status: Acute (31) UTI (urinary tract infection) Status: Acute Social History Problems: (1) Diabetes mellitus Status: Chronic Insulin-dependent diabetes mellitus Diabetic nephropathy with chronic renal disease stage III Diabetic retinopathy 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 She does not consume alcohol. She is disabled and lives with her sister. Smoking Status: Former smoker Smokeless Tobacco Use: No Alcohol Use: none Drug Use: marijuana Marital Status: Housing Status: lives alone Occupation Status: unemployed, disabled Allergies Coded Allergies: BEE STING (Verified Allergy, Severe, SWELLING, 02/24/18) Lidocaine (Verified Allergy, Severe, ANAPHYLAXIS, 02/24/18) Morphine (Verified Allergy, Mild, itching, 02/24/18) Tramadol (Verified Allergy, Mild, ITCHING, 02/24/18) Trazodone (Verified Allergy, Mild, ITCHING, 02/24/18) Current Inpatient Medications Current Inpatient Medications Medications (Trade) Dose Ordered Sig/Tera Route Start Time Stop Time Status Last Admin Dose Admin Albuterol (Ventolin Hfa Inhaler) 2 puffs Q4H PRN INH 02/24/18 14:45 03/26/18 14:44 Aspirin (Ecotrin Tab) 81 mg QAM PO 02/25/18 09:00 03/27/18 08:59 02/25/18 08:30 81 MG Atorvastatin Calcium (Lipitor Tab) 40 mg DAILY PO 02/25/18 09:00 03/27/18 08:59 02/25/18 08:04 40 MG Clopidogrel Bisulfate (plAVix TAB) 75 mg HS PO 02/24/18 21:00 03/26/18 20:59 02/24/18 21:21 75 MG Fluticasone Propionate (Flovent Hfa 110MCG Inhaler) 2 puffs BID INH 02/24/18 21:00 03/26/18 20:59 02/25/18 08:06 2 PUFFS Isosorbide Mononitrate (Imdur Ext Rel Tab) 90 mg QAM PO 02/25/18 09:00 03/27/18 08:59 02/25/18 08:05 90 MG Lisinopril (Zestril Tab) 5 mg DAILY PO 02/25/18 09:00 03/27/18 08:59 02/25/18 08:05 5 MG Metoprolol Succinate (Toprol Xl Tab) 50 mg BID PO 02/24/18 21:00 03/26/18 20:59 02/25/18 08:04 50 MG Tamsulosin HCl (Flomax Cap) 0.4 mg QAM PO 02/25/18 09:00 03/27/18 08:59 02/25/18 08:04 0.4 MG Glucose (Glucose 40% Gel) 15-30 GRAMS 15 GRAMS... UD PRN PO 02/24/18 15:00 03/26/18 14:59 Glucose (Glucose Chew Tab) 4-8 Tablets 4 Tabl... UD PRN PO 02/24/18 15:00 03/26/18 14:59 Dextrose (Dextrose 50% 50ML Syringe) 25-50ML 25ML FOR ... UD PRN IV 02/24/18 15:00 03/26/18 14:59 Glucagon (Glucagon Inj) 1 mg UD PRN SQ 02/24/18 15:00 03/26/18 14:59 Carbohydrates (Carbohydrates For Hypoglycemia) 15-30 GRAMS 15 grams if BSG 54-69... UD PRN PO 02/24/18 15:00 03/26/18 14:59 Sodium Chloride 1,000 ml @ 75 mls/hr [id number] IV 02/24/18 16:45 03/26/18 16:44 02/25/18 06:50 75 MLS/HR Insulin Aspart (novoLOG ASPART) 7 units TIDM SC 02/25/18 08:00 03/27/18 07:59 02/25/18 08:07 7 UNITS Insulin Glargine (Lantus Solostar Pen) 5 units HS SC 02/24/18 21:00 03/26/18 20:59 02/24/18 21:26 5 UNITS Physical Exam Vital Signs (Past 24 Hrs): Date Time Temp Pulse Resp B/P (MAP) Pulse Ox O2 Delivery O2 Flow Rate FiO2 02/25/18 08:00 Room Air 02/25/18 07:04 36.6 60 18 124/75 (91) 96 CPAP 02/25/18 04:36 36.3 60 18 132/85 (101) 99 CPAP 02/24/18 22:23 36.4 75 20 129/76 (93) 98 BiPAP 02/24/18 22:09 68 98 21 02/24/18 20:39 96 Room Air 02/24/18 19:48 36.9 65 18 153/84 (107) 97 Room Air 02/24/18 16:00 37.0 64 20 157/86 (109) 95 Room Air 02/24/18 15:10 73 20 144/90 96 Room Air 02/24/18 14:41 67 02/24/18 13:15 63 18 160/78 97 02/24/18 12:52 96 Room Air 02/24/18 12:22 61 16 163/76 96 Room Air 02/24/18 11:18 75 111/65 94 Room Air 86 100/74 02/24/18 10:39 76 02/24/18 10:30 99 Room Air 02/24/18 10:30 36.9 77 20 148/77 99 Room Air Patient is right-handed. The patient is awake and alert, however, if left alone she will tend to close her eyes and sleep some. Speech is sparse and she is very hesitant and slow to answer questions. When she does talk she is not having any aphasia or dysarthria. Mentation and thought processes are variable with orientation to name, hospital, day of the week, year, simple calculations, and knowing left from right. She did not know the month or the date. Mood seems somewhat down and affect is very flat however she has a significant masklike face and significant bradykinesia in general. Appearance and grooming are normal. Long and short-term memory are poor. The discs are sharp with positive venous pulsations. There are no exudates, hemorrhages, or blood vessel changes seen. Pupils are 3mm bilaterally and reactive to light. Extraocular eye muscles are intact without nystagmus. Visual acuity and visual gray seem normal grossly to confrontation. There are no deficits to sensation of the face bilaterally. Corneal reflexes are positive bilaterally. Facial strength and symmetry is normal bilaterally. Hearing seems intact grossly to voice and finger rub. Palate moves well without asymmetry. There is normal sternocleidomastoid and trapezius strength bilaterally. Tongue is midline with good strength bilaterally. Neck is with full range of motion without discomfort. There are no cervical bruits. There are no cranial or ocular bruits. Heart is without murmur. Cervical, thoracic, and lumbar spine are nontender to palpation. Gait requires her holding on to a walker and is very poor currently. She needs the assistance of 1 or 2 to help her stand but she can hold onto the walker. Her balance is poor standing on her own even with the walker. With outstretched arms there is no drift. The patient has a mild resting tremor of the right thumb. There are no postural or action tremors. There is no ataxia with [id number] testing. There is decreased facility in the hands bilaterally. There are no other abnormal involuntary movements noted, although she is very bradykinetic. 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 Motor strength is 4/5 diffusely in the legs including hip flexors, quadriceps, hamstring, gastrocnemius, tibialis anterior, tibialis posterior, and peroneii muscles bilaterally, however, I am not certain of her effort in the legs compared to the arms which was good. Toe extensors are normal and there is good bulk in the extensor digitorum brevis muscle bilaterally. The arms have moderate rigidity bilaterally with some cogwheeling. The legs have no significant rigidity. Sensory examination is intact to pin and touch throughout all four limbs. Reflexes are 0/4 in the biceps, triceps, brachioradialis, quadriceps, and Achilles tendons bilaterally. Toes are downgoing with plantar stimulation bilaterally. Peripheral pulses are present and of normal quality distally in all four limbs. There is no peripheral edema noted. Laboratory Results Past 24 Hours: 02/24/18 10:05 Red Blood Count 5.15, Mean Corpuscular Volume 84.5, Mean Corpuscular Hemoglobin 28.2, Mean Corpuscular Hemoglobin Concent 33.3, Mean Platelet Volume 10.9, Neutrophils (%) (Auto) 60.9, Lymphocytes (%) (Auto) 30.2, Monocytes (%) (Auto) 8.2, Eosinophils (%) (Auto) 0.1, Basophils (%) (Auto) 0.2, Neutrophils # (Auto) 7.91, Lymphocytes # (Auto) 3.92, Monocytes # (Auto) 1.07, Eosinophils # (Auto) 0.01, Basophils # (Auto) 0.03 02/24/18 10:05 Test 02/24/18 10:05 02/24/18 11:33 02/24/18 11:44 02/24/18 12:50 White Blood Count 12.99 K/uL (4.8-10.8) Red Blood Count 5.15 M/uL (4.2-5.4) Hemoglobin 14.5 g/dL (12.0-16.0) Hematocrit 43.5 % (37-47) Mean Corpuscular Volume 84.5 fL (80-100) Mean Corpuscular Hemoglobin 28.2 pg (25-34) Mean Corpuscular Hemoglobin Concent 33.3 g/dl (32-36) Platelet Count 252 K/uL (130-400) Mean Platelet Volume 10.9 fL (7.4-10.4) Neutrophils (%) (Auto) 60.9 % Lymphocytes (%) (Auto) 30.2 % Monocytes (%) (Auto) 8.2 % Eosinophils (%) (Auto) 0.1 % Basophils (%) (Auto) 0.2 % Neutrophils # (Auto) 7.91 K/uL (1.4-6.5) Lymphocytes # (Auto) 3.92 K/uL (1.2-3.4) Monocytes # (Auto) 1.07 K/uL (0.11-0.59) Eosinophils # (Auto) 0.01 K/uL (0-0.5) Basophils # (Auto) 0.03 K/uL (0-0.2) RDW Standard Deviation 41.7 fL (36.4-46.3) RDW Coefficient of Variation 13.7 % (11.5-14.5) Immature Granulocyte % (Auto) 0.4 % Immature Granulocyte # (Auto) 0.05 K/uL (0.00-0.02) Anion Gap 10.0 mmol/L (3-11) Est Creatinine Clear Calc Drug Dose 36.0 ml/min Estimated GFR () 41.2 Estimated GFR (Non- 35.6 BUN/Creatinine Ratio 15.8 (10-20) Calcium Level 9.8 mg/dl (8.5-10.1) Magnesium Level 2.1 mg/dl (1.8-2.4) Total Bilirubin 0.7 mg/dl (0.2-1) Direct Bilirubin 0.2 mg/dl (0-0.2) Aspartate Amino Transf (AST/SGOT) 25 U/L (15-37) Alanine Aminotransferase (ALT/SGPT) 25 U/L (12-78) Alkaline Phosphatase 61 U/L (45-117) Troponin I 0.026 ng/ml (0-0.045) Total Protein 9.4 gm/dl (6.4-8.2) Albumin 3.9 gm/dl (3.4-5.0) Thyroid Stimulating Hormone (TSH) 2.750 uIu/ml (0.300-4.500) Rapid Plasma Reagin NONREACTIVE (NONREACT) Prothrombin Time 11.1 SECONDS (9.0-12.0) Prothromb Time International Ratio 1.1 (0.9-1.1) Activated Partial Thromboplast Time 24.2 SECONDS (21.0-31.0) Partial Thromboplastin Ratio 0.9 Venous Blood pH 7.37 (7.36-7.41) Venous Blood Partial Pressure CO2 56 mmHg (38.0-50.0) Venous Blood Partial Pressure O2 30 mmHg Venous Blood HCO3 32 mmol/L Venous Blood Oxygen Saturation < 60.0 % Venous Blood Base Excess 5.0 mEq/L Urine Color YELLOW Urine Appearance CLEAR (CLEAR) Urine pH 5.0 (4.5-7.5) Urine Specific [place] 1.009 (1.000-1.030) Urine Protein NEG (NEG) Urine Glucose (UA) NEG (NEG) Urine Ketones NEG (NEG) Urine Occult Blood NEG (NEG) Urine Nitrite NEG (NEG) Urine Bilirubin NEG (NEG) Urine Urobilinogen NEG (NEG) Urine Leukocyte Esterase TRACE (NEG) Urine WBC (Auto) 1-5 /hpf (0-5) Urine RBC (Auto) 0-4 /hpf (0-4) Urine Hyaline Casts (Auto) 5-10 /lpf (0-5) Urine Epithelial Cells (Auto) 20-30 /lpf (0-5) Urine Bacteria (Auto) NEG (NEG) Urine Opiates Screen NEG (NEG) Urine Methadone, Qualitative NEG (NEG) Urine Barbiturates NEG (NEG) Urine Phencyclidine (PCP) Level NEG (NEG) Ur Amphetamine/Methamphetamine NEG (NEG) MDMA (Ecstasy) Screen NEG (NEG) Urine Benzodiazepines Screen NEG (NEG) Urine Cocaine Metabolite NEG (NEG) Urine Marijuana (THC) POS (NEG) Test 02/24/18 19:34 02/25/18 07:31 Erythrocyte Sedimentation Rate 53 mm/hr (0-21) Lactic Acid Level 1.7 mmol/L (0.4-2.0) Total Creatine Kinase 55 U/L (26-192) C-Reactive Protein < 0.29 mg/dl (0-0.29) Vitamin B12 Level 564 pg/mL (211-911) Folate 9.95 ng/mL (>5.38) Bedside Glucose 77 mg/dl (70-90) Impression 1. Parkinsonism. This patient has significant Parkinson's features including marked bradykinesia and masklike face, moderate rigidity and cogwheeling, and distal resting tremor right greater than left extremity. Her gait is poor but that is multifactorial. She was recently (February 17) started on very low-dose carbidopa/levodopa at 1/2 of a 25/100 tablet 3 times daily. This was stopped on admission Certainly, carbidopa levodopa could cause increased confusion but there was no history of this prior to her defibrillator shock on March 27. 2. Confusion First of all, the patient is very slow to respond from her parkinsonism but tends to be accurate when she does answer. Nevertheless, I believe she does have some dementia characteristics which could be secondary to cerebral vascular disease, medications, or underlying progressive parkinsonism. She does not seem to have delirium currently. 3. Severe gait disturbance. 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 Lumbar spine issues could contribute and parkinsonism certainly could contribute. Patient has been followed for some mild ventriculomegaly, suggesting possible mild normal pressure hydrocephalus. Although this cannot be entirely excluded I believe her CT scan is more consistent with hydrocephalus ex vacuo Unfortunately, an MRI cannot be obtained because of her pacemaker and ICD device 4. Elevated ESR at 53. The patient has known polymyalgia rheumatica, which obviously could elevate the sed rate and she is not on steroids currently However, the patient has an elevated white count with elevated neutrophils and lymphocytes. She has a history of UTI sepsis in August of 2017 and may very well have an infection currently. 5. History of severe depression presumably stable 6. History of significant sleep apnea. She probably needs CPAP or will have excessive daytime sleepiness. Plan 1. I am not certain we need any additional neurologic testing at this time. 2. I am curious as to how she physically may improve on carbidopa/levodopa and would recommend restarting the medication, 25/100, 3 times daily and see how she responds. As long as she is in the hospital we can keep an eye on her. If her mental status deteriorates we could always discontinue the medication. I am not aware of this medication affecting cardiac rhythm or QT interval. 3. Physical, occupational, and speech therapy consults, increasing activity as able. 4. Continue aspirin plus Plavix as usual. 5. Treat infection with antibiotics, if proven. Overall, I have spent 70 minutes with this case including records review, direct evaluation the patient at bedside, and discussion of the case with the patient at bedside, clinical staff, and Dr. Baptiste
[2018-02-25] MEDS ORDERED: BISACODYL 5 MG TABEC PO PRN (14:00)
[2018-02-25] MEDS ORDERED: BISACODYL 5 MG TABEC PO ONE (14:00)
[2018-02-25] MEDS ORDERED: DOCUSATE SODIUM 100 MG CAP PO ONE (14:45)
--- NOTE | 2018-02-25 14:52 | PROGRESS NOTE ---
DATE: 02/25/2018 CARDIOLOGY CONSULTATION FOLLOWUP NOTE The patient seen and examined. Chart, medications, telemetry reviewed. SUBJECTIVE: The patient appears brighter this morning, does answer questions. Notes no specific chest pain. Telemetry reveals no arrhythmias. OBJECTIVE: HEENT: Normocephalic and atraumatic. NECK: Without jugular venous distention. LUNGS: Notable for diminished breath sounds, but are clear. CARDIOVASCULAR: Regular. There is no S3 gallop. ABDOMEN: Soft. EXTREMITIES: Without cyanosis or clubbing. There is no peripheral edema. LABORATORY DATA: Telemetry reveals no atrial or ventricular arrhythmias with very rare ventricular pacing. Pacemaker interrogation was reevaluated with electrophysiology and device interrogation demonstrating atrial tachycardia as arrhythmia from day prior with resultant defibrillator activation after sustained tachyarrhythmia. There is no evidence of Vtach, VFib. IMPRESSION: A 62-year-old female presented after defibrillator activation in the setting of atrial tachycardia versus multifocal atrial tachycardia versus sustained sinus tachycardia. No signs of myocardial ischemia. The patient does demonstrates orthostasis on standing today likely multifactorial including medication induced. Lisinopril held Plan will be to reduce isosorbide mononitrate 30 mg per day. Continue with reduced dosing of metoprolol 25 mg twice per day. Plan on reprogramming defibrillator to increase sensitivity for atrial arrhythmias and minimize shock intervention for non-ventricular fibrillation arrhythmias. Anticipate full device reprogrammed in a.m. MTDD
--- NOTE | 2018-02-25 15:50 | Cardiology Consultation ---
Cardiology Consultation Date of Service Feb 25, 2018. Cardiology Consultation Full EP consult dictated; Pt having SVT probably PAT with RVR that resulted in ICD shock inappropriately. The shock did not convert her into SR nor did it degenerate her into VT. I will reprogram the device tomorrow to hopefully prevent further ICD shocks. If continues to have SVT despite high dose AVN blockers may need to consider anti-arrhythmic management.
--- NOTE | 2018-02-25 18:13 | Progress Note ---
Subjective Date of Service: Feb 25, 2018. Subjective Pt evaluation today including: conversation w/ patient, physical exam, lab review, review of studies, review of inpatient medication list Saw/examined the patient in room 279 States she's doing well Motor slowing c/o constipation Problem List Medical Problems: (1) Adrenal nodule Status: Acute (2) Altered mental status Status: Acute (3) Altered mental status Status: Acute (4) Altered mental status Status: Acute (5) Ambulatory dysfunction Status: Acute (6) Blood in stool Status: Acute (7) Cardiomegaly Status: Acute (8) Chronic abdominal pain Status: Acute (9) Contusion of multiple sites Status: Acute (10) Dehydration Status: Acute (11) Dehydration Status: Acute (12) Dehydration Status: Acute (13) Dizziness Status: Acute (14) Epigastric abdominal pain Status: Acute (15) Fall Status: Acute (16) Fever Status: Acute (17) Gastroparesis Status: Acute (18) Generalized weakness Status: Acute (19) Hyperglycemia Status: Acute (20) Hyperglycemia Status: Acute (21) ICD (implantable cardioverter-defibrillator) discharge Status: Acute (22) Influenza-like symptoms Status: Acute (23) Intractable nausea and vomiting Status: Acute (24) Medication reaction Status: Acute (25) Nausea Status: Acute (26) Prolonged QT interval Status: Acute (27) Sepsis Status: Acute (28) SIRS (systemic inflammatory response syndrome) Status: Acute (29) SVT (supraventricular tachycardia) Status: Acute (30) UTI (urinary tract infection) Status: Acute (31) UTI (urinary tract infection) Status: Acute Social History Problems: (1) Diabetes mellitus Status: Chronic Review of Systems Constitutional: No fever, No chills Respiratory: No shortness of breath Cardiac: No chest pain Musculoskeletal: + joint pain (low back/buttocks), + muscle pain Medications Current Inpatient Medications Medications (Trade) Dose Ordered Sig/Tera Route Start Time Stop Time Status Last Admin Dose Admin Albuterol (Ventolin Hfa Inhaler) 2 puffs Q4H PRN INH 02/24/18 14:45 03/26/18 14:44 Aspirin (Ecotrin Tab) 81 mg QAM PO 02/25/18 09:00 03/27/18 08:59 02/25/18 08:30 81 MG Atorvastatin Calcium (Lipitor Tab) 40 mg DAILY PO 02/25/18 09:00 03/27/18 08:59 02/25/18 08:04 40 MG Clopidogrel Bisulfate (plAVix TAB) 75 mg HS PO 02/24/18 21:00 03/26/18 20:59 02/24/18 21:21 75 MG Fluticasone Propionate (Flovent Hfa 110MCG Inhaler) 2 puffs BID INH 02/24/18 21:00 03/26/18 20:59 02/25/18 08:06 2 PUFFS Lisinopril (Zestril Tab) 5 mg DAILY PO 02/25/18 09:00 03/27/18 08:59 Future Hold 02/25/18 08:05 5 MG Tamsulosin HCl (Flomax Cap) 0.4 mg QAM PO 02/25/18 09:00 03/27/18 08:59 02/25/18 08:04 0.4 MG Glucose (Glucose 40% Gel) 15-30 GRAMS 15 GRAMS... UD PRN PO 02/24/18 15:00 03/26/18 14:59 Glucose (Glucose Chew Tab) 4-8 Tablets 4 Tabl... UD PRN PO 02/24/18 15:00 03/26/18 14:59 Dextrose (Dextrose 50% 50ML Syringe) 25-50ML 25ML FOR ... UD PRN IV 02/24/18 15:00 03/26/18 14:59 Glucagon (Glucagon Inj) 1 mg UD PRN SQ 02/24/18 15:00 03/26/18 14:59 Carbohydrates (Carbohydrates For Hypoglycemia) 15-30 GRAMS 15 grams if BSG 54-69... UD PRN PO 02/24/18 15:00 03/26/18 14:59 Sodium Chloride 1,000 ml @ 125 mls/hr Q8H IV 02/24/18 16:45 03/26/18 16:44 02/25/18 15:57 125 MLS/HR Insulin Aspart (novoLOG ASPART) 7 units TIDM SC 02/25/18 08:00 03/27/18 07:59 02/25/18 12:12 7 UNITS Insulin Glargine (Lantus Solostar Pen) 5 units HS SC 02/24/18 21:00 03/26/18 20:59 02/24/18 21:26 5 UNITS Docusate Sodium (coLACE CAP) 100 mg BID PO 02/25/18 21:00 03/27/18 20:59 Bisacodyl (Dulcolax Tab) 5 mg DAILY PRN PO 02/25/18 14:00 03/27/18 13:59 Isosorbide Mononitrate (Imdur Ext Rel Tab) 30 mg QAM PO 02/26/18 09:00 03/27/18 08:59 Metoprolol Succinate (Toprol Xl Tab) 25 mg BID PO 02/25/18 21:00 03/26/18 20:59 Objective Vital Signs Date Time Temp Pulse Resp B/P (MAP) Pulse Ox O2 Delivery O2 Flow Rate FiO2 02/25/18 16:02 90 Room Air 02/25/18 16:02 90 Room Air 02/25/18 15:44 37.1 65 18 87/55 (66) 90 Room Air 02/25/18 12:26 74 94/58 (70) 02/25/18 12:00 72 69/44 (52) 64/45 (51) 02/25/18 11:37 36.7 72 18 100/64 (76) 98 Room Air 02/25/18 08:00 Room Air 02/25/18 07:04 36.6 60 18 124/75 (91) 96 CPAP 02/25/18 04:36 36.3 60 18 132/85 (101) 99 CPAP 02/24/18 22:23 36.4 75 20 129/76 (93) 98 BiPAP 02/24/18 22:09 68 98 21 02/24/18 20:39 96 Room Air 02/24/18 19:48 36.9 65 18 153/84 (107) 97 Room Air Physical Exam General Appearance: no apparent distress Respiratory/Chest: chest non-tender, lungs clear, normal breath sounds, no respiratory distress, no accessory muscle use Neurologic/Psychiatric: + motor weakness, + depressed affect, + disoriented, + pertinent finding (psychomotor slowing; mild dementia, Parkinsonian movements) Laboratory Results Last 24 Hours Test 02/24/18 19:34 02/24/18 20:07 02/25/18 07:31 02/25/18 11:43 Erythrocyte Sedimentation Rate 53 mm/hr Lactic Acid Level 1.7 mmol/L Total Creatine Kinase 55 U/L C-Reactive Protein < 0.29 mg/dl Vitamin B12 Level 564 pg/mL Folate 9.95 ng/mL Bedside Glucose 132 mg/dl 77 mg/dl 133 mg/dl Test 02/25/18 16:28 Bedside Glucose 114 mg/dl Assessment and Plan This is a 62 year old female with a past medical history of CAD s/p CABG, HTN, SACHA, hx. of V-tach s/p AICD, insulin dependent DM2 - presents secondary to defibrillator discharge Defibrillator Discharge in the setting of PAT with RVR - patient with defibrillator discharge, likely inappropriately due to PAT and RVR - hx. of V-tach and V-fib - appreciate cardiology and cryptographic center specialist - defibrillator settings to be adjusted in the AM Orthostatic Hypotension - blood pressure on the lower side - holding TAMARA-I - appreciate cardiology input; lowered b-clyde and Imdur dosages noted Parkinson's Disease - continue Sinemet; appreciate neurology input Constipation - added stool softener and laxative Insulin Dependent DM2 - continue Lantus and Novolog TID dosing - blood sugars well controlled, will monitor BSGs CAD s/p CABG - continue aspirin, Plavix, b-clyde, Imdur, statin DVT ppx - SCDs DNR/DNI
[2018-02-25] MEDS: METOPROLOL SUCC 25MG EXT REL TAB PO SCH (20:07)
[2018-02-25] MEDS: CLOPIDOGREL BISULFATE 75 MG TAB PO SCH (20:39)
[2018-02-25] MEDS: DOCUSATE SODIUM 100 MG CAP PO SCH (20:39)
[2018-02-25] MEDS: CARBIDOPA/LEVODOPA 25/100MG TAB PO SCH (20:44)
[2018-02-25] MEDS: INSULIN GLARGINE SOLOSTAR 100 UNITS/ML 3 ML PEN SC SCH (20:45)
[2018-02-26] VITALS (8 sets, daily range): BP systolic 87–132; BP diastolic 56–78; PULSE 59–78; TEMP 36.5–37.4; O2SAT 94–98
[2018-02-26 07:48] LABS: CALCIUM 8.6 mg/dl (8.5-10.1); CREATININE 0.97 mg/dl (0.60-1.20)
[2018-02-26 07:50] LABS: HEMATOCRIT 34.3 % (37-47); MEAN CELL VOLUME 86.4 fL (80-100); MEAN CORPUSCULAR HEMOGLOBIN 27.7 pg (25-34); MEAN CORPUSCULAR HGB CONC 32.1 g/dl (32-36); MEAN PLATELET VOLUME 10.3 fL (7.4-10.4); PLATELET COUNT 145 K/uL (130-400); RED CELL DISTRIBUTION WIDTH CV 13.9 % (11.5-14.5); RED CELL DISTRIBUTION WIDTH SD 44.1 fL (36.4-46.3); WHITE BLOOD COUNT 9.67 K/uL (4.8-10.8)
[2018-02-26] MEDS: INSULIN ASPART 100 UNITS/ML 3 ML PEN SC SCH ×3 (08:00→17:29)
[2018-02-26] MEDS: ISOSORBIDE MONONITRATE 30 MG TABCR PO SCH (08:13)
[2018-02-26] MEDS: DOCUSATE SODIUM 100 MG CAP PO SCH ×2 (08:13→20:50)
[2018-02-26] MEDS: CARBIDOPA/LEVODOPA 25/100MG TAB PO SCH ×3 (08:13→20:50)
[2018-02-26] MEDS: ATORVASTATIN 40 MG TAB PO SCH (08:14)
[2018-02-26] MEDS: METOPROLOL SUCC 25MG EXT REL TAB PO SCH ×2 (08:14→20:50)
[2018-02-26] MEDS: ASPIRIN 81 MG ECTAB PO SCH (08:14)
[2018-02-26] MEDS: FLUTICASONE HFA 110MCG INHALER INH SCH ×2 (08:15→20:49)
[2018-02-26] MEDS: SODIUM CHLORIDE 0.9% 1000ML 1,000 ML IV SCH (08:15)
[2018-02-26] MEDS: TAMSULOSIN HCL 0.4 MG CAP PO SCH (08:15)
--- NOTE | 2018-02-26 10:04 | Neurology Progress Notes ---
Neurology Progress Note Date of Service Feb 26, 2018. Subjective Patient has no complaint of headache or pain. She is not dizzy and does not seem confused. According to her niece, who is present in the room, she ambulated from the bed to the chair with much less assistance this morning. CBC showed some anemia and Chem profile was unremarkable although glucose was 67. Blood cultures show no growth so far. Objective Date Time Temp Pulse Resp B/P (MAP) Pulse Ox O2 Delivery O2 Flow Rate FiO2 02/26/18 08:00 Room Air 02/26/18 07:22 36.8 61 18 132/77 (95) 98 Room Air 02/26/18 04:33 36.5 59 18 109/71 (84) 98 Room Air 02/25/18 23:59 Room Air 02/25/18 23:02 36.8 59 20 103/66 (78) 100 Room Air 02/25/18 20:03 Room Air 02/25/18 19:31 37.0 63 18 98/61 (73) 98 Room Air 02/25/18 16:02 90 Room Air 02/25/18 16:02 90 Room Air 02/25/18 15:44 37.1 65 18 87/55 (66) 90 Room Air 02/25/18 12:26 74 94/58 (70) 02/25/18 12:00 72 69/44 (52) 64/45 (51) 02/25/18 11:37 36.7 72 18 100/64 (76) 98 Room Air Last 24 Hours Test 02/25/18 11:43 02/25/18 16:28 02/25/18 19:59 02/26/18 06:02 Bedside Glucose 133 mg/dl 114 mg/dl 199 mg/dl White Blood Count 9.67 K/uL Red Blood Count 3.97 M/uL Hemoglobin 11.0 g/dL Hematocrit 34.3 % Mean Corpuscular Volume 86.4 fL Mean Corpuscular Hemoglobin 27.7 pg Mean Corpuscular Hemoglobin Concent 32.1 g/dl RDW Standard Deviation 44.1 fL RDW Coefficient of Variation 13.9 % Platelet Count 145 K/uL Mean Platelet Volume 10.3 fL Sodium Level 141 mmol/L Potassium Level 4.0 mmol/L Chloride Level 108 mmol/L Carbon Dioxide Level 28 mmol/L Anion Gap 5.0 mmol/L Blood Urea Nitrogen 22 mg/dl Creatinine 0.97 mg/dl Est Creatinine Clear Calc Drug Dose 57.3 ml/min Estimated GFR () 71.5 Estimated GFR (Non- 61.7 BUN/Creatinine Ratio 22.2 Random Glucose 67 mg/dl Calcium Level 8.6 mg/dl Magnesium Level 1.9 mg/dl Test 02/26/18 07:29 Bedside Glucose 81 mg/dl Exam: She is awake and alert. She is answering questions much quicker than yesterday and is more engaging and makes more eye contact. She is not sleepy. She answers quickly and accurately. She seems much more oriented. Extraocular eye muscles are intact without nystagmus. There is no facial droop. She has no resting tremor of either hand. With outstretched arms there is no drift and she has no ataxia with [id number] testing. Strength is symmetrical in all limbs. She has less rigidity and cogwheeling than she did yesterday. Although she has some bradykinesia and masklike face is much less prominent than yesterday. Current Inpatient Medications Medications (Trade) Dose Ordered Sig/Tera Route Start Time Stop Time Status Last Admin Dose Admin Albuterol (Ventolin Hfa Inhaler) 2 puffs Q4H PRN INH 02/24/18 14:45 03/26/18 14:44 Aspirin (Ecotrin Tab) 81 mg QAM PO 02/25/18 09:00 03/27/18 08:59 02/26/18 08:14 81 MG Atorvastatin Calcium (Lipitor Tab) 40 mg DAILY PO 02/25/18 09:00 03/27/18 08:59 02/26/18 08:14 40 MG Clopidogrel Bisulfate (plAVix TAB) 75 mg HS PO 02/24/18 21:00 03/26/18 20:59 02/25/18 20:39 75 MG Fluticasone Propionate (Flovent Hfa 110MCG Inhaler) 2 puffs BID INH 02/24/18 21:00 03/26/18 20:59 02/26/18 08:15 2 PUFFS Lisinopril (Zestril Tab) 5 mg DAILY PO 02/25/18 09:00 03/27/18 08:59 Future Hold 02/25/18 08:05 5 MG Tamsulosin HCl (Flomax Cap) 0.4 mg QAM PO 02/25/18 09:00 03/27/18 08:59 02/26/18 08:15 0.4 MG Glucose (Glucose 40% Gel) 15-30 GRAMS 15 GRAMS... UD PRN PO 02/24/18 15:00 03/26/18 14:59 Glucose (Glucose Chew Tab) 4-8 Tablets 4 Tabl... UD PRN PO 02/24/18 15:00 03/26/18 14:59 Dextrose (Dextrose 50% 50ML Syringe) 25-50ML 25ML FOR ... UD PRN IV 02/24/18 15:00 03/26/18 14:59 Glucagon (Glucagon Inj) 1 mg UD PRN SQ 02/24/18 15:00 03/26/18 14:59 Carbohydrates (Carbohydrates For Hypoglycemia) 15-30 GRAMS 15 grams if BSG 54-69... UD PRN PO 02/24/18 15:00 03/26/18 14:59 Sodium Chloride 1,000 ml @ 125 mls/hr Q8H IV 02/24/18 16:45 03/26/18 16:44 02/26/18 08:15 125 MLS/HR Insulin Aspart (novoLOG ASPART) 7 units TIDM SC 02/25/18 08:00 03/27/18 07:59 02/25/18 17:59 7 UNITS Insulin Glargine (Lantus Solostar Pen) 5 units HS SC 02/24/18 21:00 03/26/18 20:59 02/25/18 20:45 5 UNITS Docusate Sodium (coLACE CAP) 100 mg BID PO 02/25/18 21:00 03/27/18 20:59 02/26/18 08:13 100 MG Bisacodyl (Dulcolax Tab) 5 mg DAILY PRN PO 02/25/18 14:00 03/27/18 13:59 Isosorbide Mononitrate (Imdur Ext Rel Tab) 30 mg QAM PO 02/26/18 09:00 03/27/18 08:59 02/26/18 08:13 30 MG Metoprolol Succinate (Toprol Xl Tab) 25 mg BID PO 02/25/18 21:00 03/26/18 20:59 02/26/18 08:14 25 MG Carbidopa/Levodopa (Sinemet 25/ 100MG Tab) 1 tab TID PO 02/25/18 21:00 03/27/18 20:59 02/26/18 08:13 1 TAB Impression 1. Parkinsonism. This is markedly improved today, with much less Parkinson's features including no resting tremor, less rigidity, and less bradykinesia. Her balance is a little better as well. She was initiated on carbidopa/levodopa 25/100, 1 tablet 3 times daily. So far she is tolerating this well and has no dyskinesia. She has no lightheadedness with standing, confusion, or hallucinations. This patient had significant Parkinson's features when I 1st saw her February 25 , including marked bradykinesia and masklike face, moderate rigidity and cogwheeling, and distal resting tremor right greater than left extremity. Her gait is poor but that is multifactorial. She was recently (February 17) started on very low-dose carbidopa/levodopa at 1/2 of a 25/100 tablet 3 times daily. This was stopped on admission Certainly, carbidopa levodopa could cause increased confusion but there was no history of this prior to her defibrillator shock on March 27. 2. Confusion This is improved today and she has no delirium. She is answering questions quicker and more accurately this morning. Nevertheless, I believe she does have some very mild dementia, which could be secondary to cerebral vascular disease, medications, or underlying progressive parkinsonism. . 3. Severe gait disturbance. 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 Lumbar spine issues as well as the parkinsonism certainly could contribute. Patient has been followed for some mild ventriculomegaly, suggesting possible mild normal pressure hydrocephalus. Although this cannot be entirely excluded I believe her CT scan is more consistent with hydrocephalus ex vacuo Unfortunately, an MRI cannot be obtained because of her pacemaker and ICD device 4. Elevated ESR at 53. The patient has known polymyalgia rheumatica, which obviously could elevate the sed rate and she is not on steroids currently However, the patient has an elevated white count with elevated neutrophils and lymphocytes. She has a history of UTI sepsis in August of 2017 and may very well have an infection currently. 5. History of severe depression, which seems fairly stable to make 6. History of significant sleep apnea. She probably needs CPAP or will have excessive daytime sleepiness. Plan 1. There is no need for additional neurologic testing at this time. 2. Continue carbidopa/levodopa, 25/100, 1 tablet 3 times daily. 3. Physical, occupational, and speech therapy consults, increasing activity as able. 4. Continue aspirin plus Plavix as usual. 5. Treat infection with antibiotics, if proven. 6. She will follow up with Dr. Hemphill as an outpatient Please contact me if I can be of further assistance on this case Overall, I spent a total of 35 minutes with this case including records review, direct evaluation of the patient at bedside, and discussion of the case with the patient, her niece and her nephew, who are present in the room, and , including differential diagnosis and treatment options.
--- NOTE | 2018-02-26 13:46 | Progress Note ---
Subjective Date of Service: Feb 26, 2018. Subjective Pt evaluation today including: conversation w/ patient, physical exam, lab review, review of studies, review of inpatient medication list Saw/examined the patient in room 279 She's doing much better, mental status improved She is more awake and answering questions more clearly today Denies any chest pain/palpitations Problem List Medical Problems: (1) Adrenal nodule Status: Acute (2) Altered mental status Status: Acute (3) Altered mental status Status: Acute (4) Altered mental status Status: Acute (5) Ambulatory dysfunction Status: Acute (6) Blood in stool Status: Acute (7) Cardiomegaly Status: Acute (8) Chronic abdominal pain Status: Acute (9) Contusion of multiple sites Status: Acute (10) Dehydration Status: Acute (11) Dehydration Status: Acute (12) Dehydration Status: Acute (13) Dizziness Status: Acute (14) Epigastric abdominal pain Status: Acute (15) Fall Status: Acute (16) Fever Status: Acute (17) Gastroparesis Status: Acute (18) Generalized weakness Status: Acute (19) Hyperglycemia Status: Acute (20) Hyperglycemia Status: Acute (21) ICD (implantable cardioverter-defibrillator) discharge Status: Acute (22) Influenza-like symptoms Status: Acute (23) Intractable nausea and vomiting Status: Acute (24) Medication reaction Status: Acute (25) Nausea Status: Acute (26) Prolonged QT interval Status: Acute (27) Sepsis Status: Acute (28) SIRS (systemic inflammatory response syndrome) Status: Acute (29) SVT (supraventricular tachycardia) Status: Acute (30) UTI (urinary tract infection) Status: Acute (31) UTI (urinary tract infection) Status: Acute Social History Problems: (1) Diabetes mellitus Status: Chronic Review of Systems Constitutional: No fever, No chills Respiratory: No cough, No sputum, No shortness of breath Cardiac: No chest pain, No edema, No palpitations Medications Current Inpatient Medications Medications (Trade) Dose Ordered Sig/Tera Route Start Time Stop Time Status Last Admin Dose Admin Albuterol (Ventolin Hfa Inhaler) 2 puffs Q4H PRN INH 02/24/18 14:45 03/26/18 14:44 Aspirin (Ecotrin Tab) 81 mg QAM PO 02/25/18 09:00 03/27/18 08:59 8/15/18 08:14 81 MG Atorvastatin Calcium (Lipitor Tab) 40 mg DAILY PO 02/25/18 09:00 03/27/18 08:59 02/26/18 08:14 40 MG Clopidogrel Bisulfate (plAVix TAB) 75 mg HS PO 02/24/18 21:00 03/26/18 20:59 02/25/18 20:39 75 MG Fluticasone Propionate (Flovent Hfa 110MCG Inhaler) 2 puffs BID INH 02/24/18 21:00 03/26/18 20:59 02/26/18 08:15 2 PUFFS Lisinopril (Zestril Tab) 5 mg DAILY PO 02/25/18 09:00 03/27/18 08:59 Future Hold 02/25/18 08:05 5 MG Tamsulosin HCl (Flomax Cap) 0.4 mg QAM PO 02/25/18 09:00 03/27/18 08:59 02/26/18 08:15 0.4 MG Glucose (Glucose 40% Gel) 15-30 GRAMS 15 GRAMS... UD PRN PO 02/24/18 15:00 03/26/18 14:59 Glucose (Glucose Chew Tab) 4-8 Tablets 4 Tabl... UD PRN PO 02/24/18 15:00 03/26/18 14:59 Dextrose (Dextrose 50% 50ML Syringe) 25-50ML 25ML FOR ... UD PRN IV 02/24/18 15:00 03/26/18 14:59 Glucagon (Glucagon Inj) 1 mg UD PRN SQ 02/24/18 15:00 03/26/18 14:59 Carbohydrates (Carbohydrates For Hypoglycemia) 15-30 GRAMS 15 grams if BSG 54-69... UD PRN PO 02/24/18 15:00 03/26/18 14:59 Sodium Chloride 1,000 ml @ 125 mls/hr Q8H IV 02/24/18 16:45 03/26/18 16:44 02/26/18 08:15 125 MLS/HR Insulin Aspart (novoLOG ASPART) 7 units TIDM SC 02/25/18 08:00 03/27/18 07:59 02/26/18 12:31 7 UNITS Insulin Glargine (Lantus Solostar Pen) 5 units HS SC 8/13/18 21:00 03/26/18 20:59 02/25/18 20:45 5 UNITS Docusate Sodium (coLACE CAP) 100 mg BID PO 02/25/18 21:00 03/27/18 20:59 02/26/18 08:13 100 MG Bisacodyl (Dulcolax Tab) 5 mg DAILY PRN PO 02/25/18 14:00 03/27/18 13:59 Isosorbide Mononitrate (Imdur Ext Rel Tab) 30 mg QAM PO 02/26/18 09:00 03/27/18 08:59 02/26/18 08:13 30 MG Metoprolol Succinate (Toprol Xl Tab) 25 mg BID PO 02/25/18 21:00 03/26/18 20:59 02/26/18 08:14 25 MG Carbidopa/Levodopa (Sinemet 25/ 100MG Tab) 1 tab TID PO 02/25/18 21:00 03/27/18 20:59 02/26/18 08:13 1 TAB Objective Vital Signs Date Time Temp Pulse Resp B/P (MAP) Pulse Ox O2 Delivery O2 Flow Rate FiO2 02/26/18 11:06 37.1 64 18 87/56 (66) 96 Room Air 02/26/18 08:00 Room Air 02/26/18 07:22 36.8 61 18 132/77 (95) 98 Room Air 02/26/18 04:33 36.5 59 18 109/71 (84) 98 Room Air 02/25/18 23:59 Room Air 02/25/18 23:02 36.8 59 20 103/66 (78) 100 Room Air 02/25/18 20:03 Room Air 02/25/18 19:31 37.0 63 18 98/61 (73) 98 Room Air 02/25/18 16:02 90 Room Air 02/25/18 16:02 90 Room Air 02/25/18 15:44 37.1 65 18 87/55 (66) 90 Room Air Physical Exam General Appearance: no apparent distress Respiratory/Chest: lungs clear, normal breath sounds, no respiratory distress, no accessory muscle use Cardiovascular: regular rate, rhythm, no edema, no murmur Extremities: normal inspection, no pedal edema Neurologic/Psychiatric: + pertinent finding (mild disorientation, improved motor function) Laboratory Results Last 24 Hours Test 02/25/18 16:28 02/25/18 19:59 02/26/18 06:02 02/26/18 07:29 Bedside Glucose 114 mg/dl 199 mg/dl 81 mg/dl White Blood Count 9.67 K/uL Red Blood Count 3.97 M/uL Hemoglobin 11.0 g/dL Hematocrit 34.3 % Mean Corpuscular Volume 86.4 fL Mean Corpuscular Hemoglobin 27.7 pg Mean Corpuscular Hemoglobin Concent 32.1 g/dl RDW Standard Deviation 44.1 fL RDW Coefficient of Variation 13.9 % Platelet Count 145 K/uL Mean Platelet Volume 10.3 fL Sodium Level 141 mmol/L Potassium Level 4.0 mmol/L Chloride Level 108 mmol/L Carbon Dioxide Level 28 mmol/L Anion Gap 5.0 mmol/L Blood Urea Nitrogen 22 mg/dl Creatinine 0.97 mg/dl Est Creatinine Clear Calc Drug Dose 57.3 ml/min Estimated GFR () 71.5 Estimated GFR (Non- 61.7 BUN/Creatinine Ratio 22.2 Random Glucose 67 mg/dl Calcium Level 8.6 mg/dl Magnesium Level 1.9 mg/dl Test 02/26/18 11:28 Bedside Glucose 209 mg/dl Assessment and Plan This is a 62 year old female with a past medical history of CAD s/p CABG, HTN, SACHA, hx. of V-tach s/p AICD, insulin dependent DM2 - presents secondary to defibrillator discharge Defibrillator Discharge in the setting of PAT with RVR 02/26 - learning and development specialist to adjust defibrillator settings today 02/25 - patient with defibrillator discharge, likely inappropriately due to PAT and RVR - hx. of V-tach and V-fib - appreciate cardiology and learning and development specialist - defibrillator settings to be adjusted in the AM Orthostatic Hypotension - blood pressure on the lower side - holding TAMARA-I - appreciate cardiology input; lowered b-clyde and Imdur dosages noted Parkinson's Disease - continue Sinemet; appreciate neurology input Constipation - added stool softener and laxative Insulin Dependent DM2 - continue Lantus and Novolog TID dosing - blood sugars well controlled, will monitor BSGs CAD s/p CABG - continue aspirin, Plavix, b-clyde, Imdur, statin DVT ppx - SCDs DNR/DNI
--- NOTE | 2018-02-26 15:28 | PROGRESS NOTE ---
DATE: 02/26/2018 CARDIOLOGY CONSULTATION The patient seen and examined. Chart, medications, telemetry reviewed. SUBJECTIVE: The patient appears much brighter today, answers questions, forthcoming answers. Still drops blood pressure at mid day. Notes no chest pain or discomfort. Has had no further arrhythmias or defibrillator activation. OBJECTIVE: VITAL SIGNS: Heart rate 62, blood pressure is 102/66. NECK: Thick. No jugular venous distention is present. LUNGS: Clear to auscultation. CARDIOVASCULAR: Regular. There is no S3 gallop. ABDOMEN: Soft. EXTREMITIES: Without cyanosis or clubbing. There is no peripheral edema. The patient complains of tenderness on her buttocks. DATA: White cell count is 9.6, hemoglobin 11.0. Sodium is 141, potassium is 4.0, chloride is 108, bicarbonate is 28, BUN is 22, creatinine 0.97. IMPRESSION: A 62-year-old female admitted after defibrillator activation, appears to be non-ventricular fibrillation, ventricular tachycardia cause with MAT, PAT, likely in sinus rhythm. Device has been reprogrammed and evaluation reflects significant orthostasis. Suspect medications are due. She appears to be improving with the use of carbidopa/levodopa. We have reduced cardiac medications to allow its use, specifically held lisinopril and reduced metoprolol and nitrates. We will hold Flomax as well as clinical course progresses. Agree with PT/OT and increase in activities.
--- NOTE | 2018-02-26 16:15 | Progress Note ---
Progress Note Date of Service Feb 26, 2018. Progress Note Pt's device reprogrammed today: turned off VT zone set it to monitor only and changed the SVT discriminator AV interval delta to off and the VF zone was lowered to 200bpm; this will hopefully prevent further inappropriate shocks due to PAT/MAT.
[2018-02-26] MEDS: CLOPIDOGREL BISULFATE 75 MG TAB PO SCH (20:51)
[2018-02-26] MEDS: INSULIN GLARGINE SOLOSTAR 100 UNITS/ML 3 ML PEN SC SCH (20:59)
[2018-02-27 04:00] VITALS: BP 144/72; PULSE 59; TEMP 36.9; O2SAT 96
[2018-02-27 06:25] LABS: HEMATOCRIT 32.3 % (37-47); HEMOGLOBIN 10.4 g/dL (12.0-16.0); MEAN CELL VOLUME 85.7 fL (80-100); MEAN CORPUSCULAR HEMOGLOBIN 27.6 pg (25-34); MEAN CORPUSCULAR HGB CONC 32.2 g/dl (32-36); PLATELET COUNT 153 K/uL (130-400); RED CELL DISTRIBUTION WIDTH CV 13.9 % (11.5-14.5); RED CELL DISTRIBUTION WIDTH SD 43.1 fL (36.4-46.3); WHITE BLOOD COUNT 8.19 K/uL (4.8-10.8)
[2018-02-27 07:14] VITALS: BP 138/77; PULSE 58; TEMP 37.1; O2SAT 98
[2018-02-27 08:00] VITALS: O2SAT 98
[2018-02-27] MEDS: TAMSULOSIN HCL 0.4 MG CAP PO SCH (08:03)
[2018-02-27] MEDS: METOPROLOL SUCC 25MG EXT REL TAB PO SCH (08:03)
[2018-02-27] MEDS: ATORVASTATIN 40 MG TAB PO SCH (08:03)
[2018-02-27] MEDS: DOCUSATE SODIUM 100 MG CAP PO SCH (08:03)
[2018-02-27] MEDS: FLUTICASONE HFA 110MCG INHALER INH SCH (08:03)
[2018-02-27] MEDS: ASPIRIN 81 MG ECTAB PO SCH (08:03)
[2018-02-27] MEDS: ISOSORBIDE MONONITRATE 30 MG TABCR PO SCH (08:03)
[2018-02-27] MEDS: CARBIDOPA/LEVODOPA 25/100MG TAB PO SCH ×2 (08:04→13:13)
[2018-02-27 08:05] VITALS: BP 122/77; PULSE 60; TEMP 36.8; O2SAT 96
[2018-02-27] MEDS: INSULIN ASPART 100 UNITS/ML 3 ML PEN SC SCH ×3 (08:08→16:59)
--- NOTE | 2018-02-27 10:32 | PROGRESS NOTE ---
DATE: 02/27/2018 Patient seen and examined. Chart, medications, telemetry reviewed. SUBJECTIVE: Patient appears substantially brighter and more alert this morning. Denies any complaints. Telemetry reveals no arrhythmias. Notes no chest pain or discomfort. OBJECTIVE: VITAL SIGNS: Heart rate 60, blood pressure is 122/77, O2 saturation 96% on room air. NECK: Thick, but no distinct jugular venous distention is discerned. LUNGS: Clear. CARDIOVASCULAR: Regular with paced rhythm. ABDOMEN: Soft, nontender. Pacer defibrillator sites without tenderness. EXTREMITIES: Free of edema. LABORATORY DATA: Sodium is 141, potassium is 4.0, chloride is 108, bicarb is 28, BUN is 22, creatinine 0.97 yesterday, hemoglobin was 10.4 today. IMPRESSION AND PLAN: [age] [id number] female admitted with complex clinical decline with defibrillator activation in the setting of atrial tachycardia. The patient has had substantial improvement since admission, predominantly through addition of Sinemet to regimen as well as reduction in multiple medications. We will continue reduction in therapies. Lisinopril has been held. Consideration may be made in the future for reinstituting lower dosage; however, blood pressures demonstrated orthostasis in midday, would not titrate upward at this time. LV systolic function is preserved. Lisinopril will be used for hypertension or renal protective effect.
[2018-02-27 11:28] VITALS: BP 91/61; PULSE 60; TEMP 37.1; O2SAT 97
--- NOTE | 2018-02-27 11:43 | Progress Note ---
Subjective Date of Service: Feb 27, 2018. Subjective Pt evaluation today including: conversation w/ patient, physical exam, lab review, review of studies, review of inpatient medication list Saw/examined the patient in room 279 She's doing well, no problems/issues at this time She is much improved clinically Very eager to go home Problem List Medical Problems: (1) Adrenal nodule Status: Acute (2) Altered mental status Status: Acute (3) Altered mental status Status: Acute (4) Altered mental status Status: Acute (5) Ambulatory dysfunction Status: Acute (6) Blood in stool Status: Acute (7) Cardiomegaly Status: Acute (8) Chronic abdominal pain Status: Acute (9) Contusion of multiple sites Status: Acute (10) Dehydration Status: Acute (11) Dehydration Status: Acute (12) Dehydration Status: Acute (13) Dizziness Status: Acute (14) Epigastric abdominal pain Status: Acute (15) Fall Status: Acute (16) Fever Status: Acute (17) Gastroparesis Status: Acute (18) Generalized weakness Status: Acute (19) Hyperglycemia Status: Acute (20) Hyperglycemia Status: Acute (21) ICD (implantable cardioverter-defibrillator) discharge Status: Acute (22) Influenza-like symptoms Status: Acute (23) Intractable nausea and vomiting Status: Acute (24) Medication reaction Status: Acute (25) Nausea Status: Acute (26) Prolonged QT interval Status: Acute (27) Sepsis Status: Acute (28) SIRS (systemic inflammatory response syndrome) Status: Acute (29) SVT (supraventricular tachycardia) Status: Acute (30) UTI (urinary tract infection) Status: Acute (31) UTI (urinary tract infection) Status: Acute Social History Problems: (1) Diabetes mellitus Status: Chronic Review of Systems Constitutional: No fever, No chills Respiratory: No cough, No sputum, No shortness of breath Cardiac: No chest pain, No edema, No palpitations Medications Current Inpatient Medications Medications (Trade) Dose Ordered Sig/Tera Route Start Time Stop Time Status Last Admin Dose Admin Albuterol (Ventolin Hfa Inhaler) 2 puffs Q4H PRN INH 02/24/18 14:45 03/26/18 14:44 Aspirin (Ecotrin Tab) 81 mg QAM PO 02/25/18 09:00 03/27/18 08:59 02/27/18 08:03 81 MG Atorvastatin Calcium (Lipitor Tab) 40 mg DAILY PO 02/25/18 09:00 03/27/18 08:59 02/27/18 08:03 40 MG Clopidogrel Bisulfate (plAVix TAB) 75 mg HS PO 02/24/18 21:00 03/26/18 20:59 02/26/18 20:51 75 MG Fluticasone Propionate (Flovent Hfa 110MCG Inhaler) 2 puffs BID INH 02/24/18 21:00 03/26/18 20:59 02/27/18 08:03 2 PUFFS Lisinopril (Zestril Tab) 5 mg DAILY PO 02/25/18 09:00 03/27/18 08:59 Future Hold 02/25/18 08:05 5 MG Tamsulosin HCl (Flomax Cap) 0.4 mg QAM PO 02/25/18 09:00 03/27/18 08:59 02/27/18 08:03 0.4 MG Glucose (Glucose 40% Gel) 15-30 GRAMS 15 GRAMS... UD PRN PO 02/24/18 15:00 03/26/18 14:59 Glucose (Glucose Chew Tab) 4-8 Tablets 4 Tabl... UD PRN PO 02/24/18 15:00 03/26/18 14:59 Dextrose (Dextrose 50% 50ML Syringe) 25-50ML 25ML FOR ... UD PRN IV 02/24/18 15:00 03/26/18 14:59 Glucagon (Glucagon Inj) 1 mg UD PRN SQ 02/24/18 15:00 03/26/18 14:59 Carbohydrates (Carbohydrates For Hypoglycemia) 15-30 GRAMS 15 grams if BSG 54-69... UD PRN PO 02/24/18 15:00 03/26/18 14:59 Insulin Aspart (novoLOG ASPART) 7 units TIDM SC 02/25/18 08:00 03/27/18 07:59 02/27/18 08:08 7 UNITS Insulin Glargine (Lantus Solostar Pen) 5 units HS SC 02/24/18 21:00 03/26/18 20:59 02/26/18 20:59 5 UNITS Docusate Sodium (coLACE CAP) 100 mg BID PO 02/25/18 21:00 03/27/18 20:59 02/27/18 08:03 100 MG Bisacodyl (Dulcolax Tab) 5 mg DAILY PRN PO 02/25/18 14:00 03/27/18 13:59 Isosorbide Mononitrate (Imdur Ext Rel Tab) 30 mg QAM PO 02/26/18 09:00 03/27/18 08:59 02/27/18 08:03 30 MG Metoprolol Succinate (Toprol Xl Tab) 25 mg BID PO 02/25/18 21:00 03/26/18 20:59 02/27/18 08:03 25 MG Carbidopa/Levodopa (Sinemet 25/ 100MG Tab) 1 tab TID PO 02/25/18 21:00 03/27/18 20:59 02/27/18 08:04 1 TAB Objective Vital Signs Date Time Temp Pulse Resp B/P (MAP) Pulse Ox O2 Delivery O2 Flow Rate FiO2 02/27/18 08:05 36.8 60 16 122/77 (92) 96 Room Air 02/27/18 08:00 98 Room Air 02/27/18 07:14 37.1 58 18 138/77 (97) 98 Room Air 02/27/18 04:00 96 Room Air 02/27/18 04:00 36.9 59 20 144/72 (96) 96 Room Air 02/26/18 23:59 Room Air 02/26/18 22:59 37.4 60 18 120/72 (88) 97 Room Air 02/26/18 19:26 37.3 78 19 127/78 (94) 94 Room Air 02/26/18 16:00 95 Room Air 02/26/18 14:52 36.8 69 18 112/56 (74) 95 Room Air 02/26/18 14:05 62 102/66 (78) Physical Exam General Appearance: no apparent distress Respiratory/Chest: lungs clear, normal breath sounds, no respiratory distress, no accessory muscle use Cardiovascular: regular rate, rhythm, no edema, no murmur Laboratory Results Last 24 Hours Test 02/26/18 11:28 02/26/18 16:36 02/26/18 20:25 02/27/18 06:01 Bedside Glucose 209 mg/dl 164 mg/dl 215 mg/dl White Blood Count 8.19 K/uL Red Blood Count 3.77 M/uL Hemoglobin 10.4 g/dL Hematocrit 32.3 % Mean Corpuscular Volume 85.7 fL Mean Corpuscular Hemoglobin 27.6 pg Mean Corpuscular Hemoglobin Concent 32.2 g/dl RDW Standard Deviation 43.1 fL RDW Coefficient of Variation 13.9 % Platelet Count 153 K/uL Mean Platelet Volume 10.0 fL Test 02/27/18 07:31 Bedside Glucose 126 mg/dl Assessment and Plan This is a 62 year old female with a past medical history of CAD s/p CABG, HTN, SACHA, hx. of V-tach s/p AICD, insulin dependent DM2 - presents secondary to defibrillator discharge Defibrillator Discharge in the setting of PAT with RVR 02/27 - defibrillator settings adjusted - now on a lower dose of metoprolol/Imdur - Lisinopril held for now - may need to restart TAMARA-I for nephro-protection as outpatient if blood pressure allows 02/26 - selling specialist to adjust defibrillator settings today 02/25 - patient with defibrillator discharge, likely inappropriately due to PAT and RVR - hx. of V-tach and V-fib - appreciate cardiology and selling specialist - defibrillator settings to be adjusted in the AM Orthostatic Hypotension - blood pressure on the lower side - holding TAMARA-I - appreciate cardiology input; lowered b-clyde and Imdur dosages noted Parkinson's Disease - continue Sinemet; appreciate neurology input Constipation - added stool softener and laxative Insulin Dependent DM2 - continue Lantus and Novolog TID dosing - blood sugars well controlled, will monitor BSGs CAD s/p CABG - continue aspirin, Plavix, b-clyde, Imdur, statin DVT ppx - SCDs DNR/DNI
[2018-02-27] MEDS ORDERED: CARB1TAB94 PO (11:46)
[2018-02-27] MEDS ORDERED: ISOS30TA3 PO (11:46)
[2018-02-27] MEDS ORDERED: METO-478 PO (11:46)
--- NOTE | 2018-02-27 11:49 | Discharge Instructions ---
Discharge Instructions Date of Service Feb 27, 2018. Admission Reason for Admission: Altered Mental Status, Presence Of Combination Discharge Discharge Diagnosis / Problem: Altered Mental Status, Defibrillator Discharge Discharge Goals Goal(s): Decrease discomfort, Improve function, Diagnostic testing, Therapeutic intervention Activity Recommendations Activity Limitations: resume your previous activity . Instructions / Follow-Up Instructions / Follow-Up Please follow-up with Dr. Ramirez on March 06 at 10:45AM * Your dose of Carbidopa is increased to 25/100 three times a day * Stop taking Lisinopril * Doses of Metoprolol and Imdur have been decreased * Primary care physician can restart Lisinopril at a lower dose if your blood pressure improves Current Hospital Diet Patient's current hospital diet: Diabetes Type 2 Diet Discharge Diet Recommended Diet: Diabetes Type 2 Diet Pending Studies Studies pending at discharge: no Medical Emergencies . Who to Call and When: Medical Emergencies: If at any time you feel your situation is an emergency, please call 911 immediately. . Non-Emergent Contact Non-Emergency issues call your: Primary Care Provider, Cuff Turner, Neurologist . . "Provider Documentation" section prepared by Caryn Baptiste. .
[2018-02-27 11:50] VITALS: BP 122/70; PULSE 60; TEMP 37.1; O2SAT 97
--- NOTE | 2018-02-27 11:51 | Discharge Summary ---
Discharge Summary Date of Service Feb 27, 2018. Discharge Summary Admission Date: Feb 24, 2018 at 14:11 Discharge Date: Feb 27, 2018 Discharge Disposition: Home with services Principal Diagnosis: Defibrillator Discharge in the setting of PAT with RVR Orthostatic Hypotension Parkinson's Disease Constipation Insulin Dependent DM2 CAD s/p CABG Medication Reconciliation Changed Medications: Carbidopa (Carbidopa) 25 Mg Tab 25 MG PO TID for 30 Days, #90 TAB (Changed from: 12.5 MG; 45) Isosorbide Mononitrate Ext Rel (Imdur Ext Rel) 30 Mg Ertab 30 MG PO QAM for 30 Days, #30 TAB (Changed from: 90 MG) 3 TABLET DOSE Metoprolol Succinate (Toprol Xl) 25 Mg Tab 1 TAB PO DAILY for 30 Days, #30 TAB 5 Refills (Changed from: Metoprolol Succinate (Metoprolol Succinate ER) 50 Mg Tabcr 50 Mg PO BID) Continued Medications: Albuterol Hfa (Ventolin Hfa) 200 Puffs/87141 Mcg Aers 2 PUFFS INH Q4H PRN for Wheezing, #1 INHALER Aspirin (Aspirin Ec) 81 Mg Tab 81 MG PO QAM Atorvastatin (Lipitor) 40 Mg Tab 40 MG PO DAILY, TAB Ciclopirox (Ciclopirox Nail Lacquer) 8 % Tierra 1 APPLN TOP DAILY, #6.6 ML 6 Refills apply to affected toenails Clobetasol Propionate (Clobetasol Propionate) 45 Appln/15 Gm Oint 1 APPLN TOP DAILY, GM Clopidogrel Bisulfate (Plavix) 75 Mg Tab 75 MG PO HS Cyclosporine (Ophth) (Restasis) 0.05 % Emu 1 DROPS OP BID, VIAL Diclofenac Sodium (Topical) (Voltaren 1% Top Gel) 1 % Gel 1 APPLN TD QID Docusate Sodium (Colace) 100 Mg Cap 100 MG PO BID PRN for Constipation, CAP Escitalopram Oxalate (Lexapro) 10 Mg Tab 15 MG PO QAM, TAB Fluticasone Propionate (Flovent Hfa) 120 Puffs/32675 Mcg Aero 2 PUFFS INH BID, #1 INHALER 2 Refills Hydroquinone (Tl Hydroquinone) 4 % Cre 1 APPLN TOP BID Insulin Aspart (Novolog Flexpen) Unknown Strength Inj 7 UNITS SQ ACHS 7 UNITS 5 TIMES DAILY WITH MEALS -NOW EATING APPROX 5 MEALS PER DAY. 10 UNITS IF SNACK IS EATEN. Insulin Glargine (Lantus Solostar) 100 Unit/Ml Inj 23 UNITS SQ DAILY, PEN Ipratropium Archer (Nasal) (Ipratropium Archer) 0.03 % Spr 2 SPRAYS DANIEL BID Ketoconazole (Topical) (Ketoconazole) 2 % Sha 1 APPLN TOP DAILY Lactobacillus (Acidophilus Extra Strengt) 1 Cap Cap 1 CAP PO DAILY Magnesium Citrate (Magnesium Citrate) 1.745 Gm/30 Ml Tierra 120 ML PO DAILY PRN for Constipation Metronidazole (Topical) (Metrocream) 0.75 % Cre TOP DAILY, #45 GM Nitroglycerin (Nitrostat) 0.4 Mg Tab 0.4 MG UT PRN, BTL 1 tablet every 5 minutes as needed for chest pain up to 3 doses in 15 minutes. Ondansetron Hcl (Zofran) 4 Mg Tab 4 MG SL Q8 PRN for Nausea, TAB Pantoprazole (Pantoprazole Sodium) 40 Mg Tab 40 MG PO DAILY Polyethylene (Miralax) 17 Gm Pow 17 GM PO DAILY PRN for Constipation, BTL Senna/Docusate Sod (Senokot S) 1 Tab Tab 1 TAB PO DAILY PRN for Constipation, TAB Tamsulosin HCl (Tamsulosin HCl) 0.4 Mg Cap 0.4 MG PO QAM for 30 Days, CAP Triamcinolone Acet (Aristocort 0.1%) 90 Appln/30 Gm Cr 1 APPL TOP BID to affected area Discontinued Medications: Lisinopril (Zestril) 5 Mg Tab 5 MG PO DAILY, TAB Admission Information HPI (per Admitting provider): Patient brought in to the ED after near syncopal episode. As per history of the patient's family member sister Sarah Worley [phone] and Emergency room provider Dr. Perez, patient apparently had near syncopal event when using the bathroom and felt that the defibrillator shocked her. Interrogation of the defibrillator was down in the ER and that high voltage therapy was delivered by the device for episode of VT/VF. This story was apparently given to the patient by the emergency room physician initially but during the emergency stay the patient became more confused. Her CT head did not show evidence for intracranial bleed. The urine was negative for bacteria. When examined by hospitalist, the patient was awake and verbal but sometimes slow to respond to questions although at other sometimes able to answer other questions, she generally did not seem to be able to stay focused on the conversation and appeared easily distracted. Hospitalist called the patient's family member and she reports that that she does get more confused when she is ill with urinary tract infection for example. Patient apparently had been prescribed carbidopa by neurology Dr. Hemphill on SaturdayFebruary 17 and as per my phone call with his colleague Dr. Ervin the indication was apparently for gait dysfunction. Patient 's sister denies of ever having diagnosis of Parkinson's disease. She also elaborated that patient was having vomiting symptoms subsequently on Saturday/ Saturday for which she was later evaluated in the ER at [facility] on Saturday. Physical Exam (per Admitting): General Appearance: + pertinent finding (no acute physical distress but appears confused) Head: normocephalic Eyes: normal inspection, EOMI, sclerae normal ENT: hearing grossly normal, pharynx normal Neck: supple, no adenopathy, no JVD, trachea midline Respiratory/Chest: chest non-tender, lungs clear, normal breath sounds, no respiratory distress, no accessory muscle use Cardiovascular: regular rate, rhythm, no edema, normal peripheral pulses Abdomen/GI: normal bowel sounds, non tender, soft, no organomegaly, no pulsatile mass Extremities/Musculoskelatal: no calf tenderness, normal capillary refill, no pedal edema Neurologic/Psych: + disoriented Skin: normal color, warm/dry, no rash Hospital Course This is a 62 year old female with a past medical history of CAD s/p CABG, HTN, SACHA, hx. of V-tach s/p AICD, insulin dependent DM2 - presents secondary to defibrillator discharge Defibrillator Discharge in the setting of PAT with RVR 02/27 - defibrillator settings adjusted - now on a lower dose of metoprolol/Imdur - Lisinopril held for now - may need to restart TAMARA-I for nephro-protection as outpatient if blood pressure allows 02/26 - tuberculosis specialist to adjust defibrillator settings today 02/25 - patient with defibrillator discharge, likely inappropriately due to PAT and RVR - hx. of V-tach and V-fib - appreciate cardiology and tuberculosis specialist - defibrillator settings to be adjusted in the AM Orthostatic Hypotension - blood pressure on the lower side - holding TAMARA-I - appreciate cardiology input; lowered b-clyde and Imdur dosages noted Parkinson's Disease - continue Sinemet; appreciate neurology input Constipation - added stool softener and laxative Insulin Dependent DM2 - continue Lantus and Novolog TID dosing - blood sugars well controlled, will monitor BSGs CAD s/p CABG - continue aspirin, Plavix, b-clyde, Imdur, statin DVT ppx - SCDs DNR/DNI Total time spent on discharge = 45 minutes This includes examination of the patient, discharge planning, medication reconciliation, and communication with other providers. Discharge Instructions Please follow-up with Dr. Ramirez on March 06 at 10:45AM * Your dose of Carbidopa is increased to 25/100 three times a day * Stop taking Lisinopril * Doses of Metoprolol and Imdur have been decreased * Primary care physician can restart Lisinopril at a lower dose if your blood pressure improves
[2018-02-27] MEDS ORDERED: CARB25TA PO (13:23)
--- NOTE | 2018-02-27 21:10 | CARDIOLOGY CONSULTATION ---
DATE OF CONSULTATION: 02/25/2018 REFERRING PHYSICIAN: Noble Spain MD REASON FOR CONSULTATION: Inappropriate ICD shock. HISTORY OF PRESENT ILLNESS: This is a 63-year-old female who I saw in the office back in June of last year. She has known coronary artery disease, diabetes, chronic kidney disease, hypertension, hyperlipidemia, obstructive sleep apnea, chronic diastolic heart failure. Apparently, she had supposedly reported a ventricular fibrillation arrest and underwent a dual chamber ICD [employer] in 2012. Her ejection fraction is preserved. She also has known paroxysmal atrial tachycardia. She was brought in because she had a defibrillator shock on the . She was also possibly hypotensive at that time. She has a history of having the defibrillator shock back around , which was an inappropriate shock due to probably atrial tachycardia. The patient is not the best historian, so I cannot get any more information, but she may have been a little lightheaded and dizzy and hypotensive around the time of the shock. It sounds like she was getting up to go from the bathroom when symptoms happened. PAST MEDICAL HISTORY: As described above in addition to depression, diabetic neuropathy, gastroesophageal reflux disease, balance problem, adrenal incidentaloma, degenerative disc disease, osteoarthritis. PAST SURGICAL HISTORY: Includes CABG in 1997 in [place] SVG to OM, SVG to OM2, MEHTA to LAD. She also had a cardiac catheterization with stenting x2 to the left main and LAD in June of 2012. She has had colonoscopies, EGDs, cholecystectomy, and total hysterectomy as well as a dual chamber ICD in August of 2012. FAMILY HISTORY: Noncontributory. SOCIAL HISTORY: She has a prior tobacco use. Rare use of alcohol. ALLERGIES: No known drug allergies. MEDICATIONS AT HOME: Insulin, eyedrops, Lexapro, aspirin, hydroxyzine, probiotics, possibly metoprolol in the past. No TAMARA inhibitor due to hypotension. She is on beta clyde. REVIEW OF SYSTEMS: The patient is not the best historian, so it was really difficult to get a good review of systems so most of the information was obtained from the medical chart. PHYSICAL EXAMINATION: VITAL SIGNS: Heart rate 72, respirations 18, blood pressure 100/64, oxygen saturations 98% on room air, and temperature is 36.7. On telemetry, she is sinus rhythm. GENERAL: She is awake, alert, and oriented x3. Again, kind of a affect, does not really talk much, and quickly goes to sleep . HEENT: Normocephalic, atraumatic. Extraocular muscles are intact. Sclerae are nonicteric. Mucous membranes moist. NECK: Supple, no JVD appreciated. CARDIOVASCULAR: Normal S1, S2, regular rate and rhythm, no murmur appreciated. ICD site is intact and well healed without any evidence of threatened erosion. PULMONARY: Clear to auscultation bilaterally. No wheeze, rales, or rhonchi. ABDOMEN: Positive bowel sounds, soft, nontender, nondistended. EXTREMITIES: No clubbing. ABDOMEN: Soft, nontender, obese. EXTREMITIES: No clubbing or cyanosis in bilateral fingers. No edema in bilateral lower extremities. Peripheral pulses intact. SKIN: Grossly intact. NEUROLOGIC: Grossly intact. Again, minus or flat affect. PERTINENT TESTING: On admission, her EKG was sinus rhythm in the 70s. Prior EKG from 2016 was sinus rhythm in the 70s as well. Admission laboratory studies were all relatively within normal limits. The CBC was WBC is 12.9, hemoglobin 14.5, hematocrit 43.5, platelets 252. CMP: Sodium 135, potassium 4, chloride 95, carbon dioxide 28, BUN 24, creatinine 1.5, glucose 154, calcium 9.8, magnesium 2.1, bilirubin 0.7, total bilirubin 0.2, AST 25, ALT 25, alkaline phosphatase 61. TSH 2.75. Nuclear stress test back from October 2015, ejection fraction was greater than 70% and normal, no evidence of ischemia. ICD interrogation that was performed on admission demonstrated that she has a [employer] Fortify and that she 02/24/2018, she went into SVT at 173 beats per minute (345 milliseconds). There was 1:1 VA conduction; however, there was some variable V-to-V intervals. Most likely this was paroxysmal atrial tachycardia, maybe even multifocal atrial tachycardia. It ultimately ended up fooling the device, thinking it was VT because of the AV delta being 45 milliseconds and so she ultimately got a 35 joule shock. This did not break the arrhythmia. She continued and the arrhythmia, but this is what prompted her to come to the hospital. IMPRESSION 1. Inappropriate implantable cardioverter defibrillator shock secondary to supraventricular tachycardia, most likely a paroxysmal atrial tachycardia or a multifocal atrial tachycardia. 2. History of ventricular fibrillation arrest, status post dual chamber implantable cardioverter defibrillator [employer] in August 2012 with a preserved ejection fraction. 3. Coronary artery disease, history of drug-eluting stent x2 to the left main and left anterior descending artery in 06/2012 and has a history of prior coronary artery bypass graft, saphenous vein graft to obtuse marginal, saphenous vein graft to second obtuse marginal, left internal mammary artery to left anterior descending artery on 04/05/1998 in [place]. 4. Paroxysmal atrial tachycardia. 5. Hyperlipidemia. She is not on a statin. 6. Hypertension on the low side, though so she is only on metoprolol. No angiotensin-converting enzyme inhibitor. 7. Diabetes. 8. Chronic kidney disease stage III. 9. Obstructive sleep apnea but does not appear that she uses continuous positive airway pressure. 10. Chronic diastolic heart failure [place] [employer] class III. PLAN: I would recommend reprogramming her device, which I will do personally tomorrow. I will turn off the VT zone at this juncture as I do not think she has ever had any VT. I will lower the VF zone from 214 beats per minute to 200 beats per minute and I will reprogram the SVT discriminators to turn the AV interval delta from 60 milliseconds to off as this is what prompted her to get the shock. Hopefully, this will keep her from getting any more inappropriate shocks. She should maintain as much as she can the high dose AV nica blockers. If we need to, we could consider antiarrhythmic such as sotalol or amiodarone in the future. Discussed with the general barrel lathe operator, Dr. Spain and again I will reprogram it tomorrow on Saturday02/26/2018.
== END 2018-02-27 17:11 | disposition home or self-care (01) | DRG 309 ==
LOC: EDBD 10:22 → C.EDB 10:23 → C.MED 14:11 → ENRESERV 14:35
PROVIDERS: ADMIT Hospitalist; ATTEND Family Medicine
DX: I47.1 Supraventricular tachycardia (principal); T82.198A Other mechanical complication of other cardiac electronic device, initial encounter; I50.32 Chronic diastolic (congestive) heart failure; N17.9 Acute kidney failure, unspecified; G91.8 Other hydrocephalus; Y71.1 Therapeutic (nonsurgical) and rehabilitative cardiovascular devices associated with adverse incidents; I49.01 Ventricular fibrillation; I95.1 Orthostatic hypotension; R41.82 Altered mental status, unspecified; G20 Parkinson's disease; F02.80 Dementia in other diseases classified elsewhere, unspecified severity, without behavioral disturbance, psychotic disturbance, mood disturbance, and anxiety; I25.10 Atherosclerotic heart disease of native coronary artery without angina pectoris; J45.909 Unspecified asthma, uncomplicated; E11.22 Type 2 diabetes mellitus with diabetic chronic kidney disease; E11.21 Type 2 diabetes mellitus with diabetic nephropathy; N18.3 Chronic kidney disease, stage 3 (moderate); E11.40 Type 2 diabetes mellitus with diabetic neuropathy, unspecified; K21.9 Gastro-esophageal reflux disease without esophagitis; E78.5 Hyperlipidemia, unspecified; M35.3 Polymyalgia rheumatica; K59.00 Constipation, unspecified; G47.33 Obstructive sleep apnea (adult) (pediatric); D64.9 Anemia, unspecified; F32.9 Major depressive disorder, single episode, unspecified; Z66 Do not resuscitate; Z95.1 Presence of aortocoronary bypass graft; Z95.810 Presence of automatic (implantable) cardiac defibrillator; Z95.5 Presence of coronary angioplasty implant and graft; Z87.891 Personal history of nicotine dependence; Z79.82 Long term (current) use of aspirin; Z79.02 Long term (current) use of antithrombotics/antiplatelets; Z79.51 Long term (current) use of inhaled steroids; Z79.4 Long term (current) use of insulin; Z79.899 Other long term (current) drug therapy; Z88.5 Allergy status to narcotic agent; Z88.6 Allergy status to analgesic agent; Z88.8 Allergy status to other drugs, medicaments and biological substances; Z91.030 Bee allergy status

== ENCOUNTER 2018-08-21 13:56 | Inpatient (IN) ==
[2018-08-21] MEDS ORDERED: ONDANSETRON INJ 2 MG/ML 2 ML VIAL IV STA (14:44)
[2018-08-21] MEDS ORDERED: SODIUM CHLORIDE 0.9% 1000ML 1,000 ML IV SCH (14:45)
[2018-08-21] MEDS ORDERED: CEFEPIME 2,000 MG in SYRINGE 7.5 ML IV STA (14:51)
--- NOTE | 2018-08-21 15:19 | XRay Report ---
XR KUB CLINICAL HISTORY: 63 years-old Female presenting with poss obstruction, recent vomiting. TECHNIQUE: Single supine view of the abdomen was obtained. COMPARISON: 05/16/[address] from 08/19/2018. FINDINGS: Cholecystectomy clips noted. No large stool burden is evident on the rectum on the current exam. Nono bstructive bowel gas pattern. No gross pneumoperitoneum. Allowing for bowel gas and stool, no calcifications to suggest nephrolithiasis. Degenerative changes of the spine. Lung bases clear. IMPRESSION: 1. No acute intra-abdominal pathology. 2. Clearance of prior large stool burden in the rectum. Electronically signed by: Robert Cesar M.D. 08/21/2018 3:18 PM
--- NOTE | 2018-08-21 15:21 | XRay Report ---
XR chest 1V portable CLINICAL HISTORY: weakness mental status change COMPARISON STUDY: 08/19/2018 FINDINGS: Lungs are considered clear. Moderate emphysematous change. Prior median sternotomy. Permane nt cardiac pacemaker in good position. IMPRESSION: No acute process. Chronic and postoperative change. The above report was generated using voice recognition software. It may contain grammatical, syntax or spelling errors. Electronically signed by: James Nickerson M.D. 08/21/2018 3:20 PM
[2018-08-21 16:27] LABS: Basophils # (auto) 0.03 K/uL (0-0.2); Basophils % (auto) 0.3 %; Eosinophils # (auto) 0.01 K/uL (0-0.5); Eosinophils % (auto) 0.1 %; Hematocrit (blood only) 42.4 % (37-47); Hemoglobin 14.4 g/dL (12.0-16.0); Immature Granulocytes # (auto) 0.02 K/uL (0.00-0.02); Immature Granulocytes % (auto) 0.2 %; Lymphocytes # (auto) 4.08 K/uL (1.2-3.4); Lymphocytes % (auto) 38.7 %; Mean Platelet Volume 10.5 fL (7.4-10.4); Monocytes # (auto) 0.87 K/uL (0.11-0.59); Monocytes % (auto) 8.3 %; Neutrophils # (auto) 5.53 K/uL (1.4-6.5); Neutrophils % (auto) 52.4 %; Platelet Count 199 K/uL (130-400); RDW Standard Deviation 38.9 fL (36.4-46.3); Red Blood Count 5.05 M/uL (4.2-5.4); White Blood Count 10.54 K/uL (4.8-10.8)
[2018-08-21 16:32] LABS: Base Excess VBG 6.7 mEq/L; HCO3 VBG 35 mmol/L; PCO2 VBG 63 mmHg (38-50); PO2 VBG 30 mmHg; pH VBG 7.36 (7.36-7.41)
[2018-08-21 16:33] LABS: Oxygen Saturation VBG < 60.0 %
--- NOTE | 2018-08-21 16:51 | CT Scan Report ---
CT SCAN OF THE BRAIN WITHOUT IV CONTRAST CLINICAL HISTORY: Generalized weakness. COMPARISON STUDY: CT of the brain dated 08/19/2018. TECHNIQUE: Unenhanced axial CT scan of the brain is performed from the vertex to the skull base. A do se lowering technique was utilized adhering to the principles of ALARA. CT DOSE: 537.48 mGy.cm FINDINGS: Brain parenchyma: There are age-related involutional changes noting moderate subcortical and periven tricular microangiopathic change. There is no hemorrhage, mass effect, or evidence of acute territori al ischemia by CT criteria. Titus-white matter differentiation is preserved. No extra-axial fluid emilia ection is seen. Ventricles, sulci, cisterns: Prominent secondary to involutional change. Intracranial vasculature: There is mild atherosclerotic calcification of the cavernous carotid arteri es. Calvarium: Unremarkable. Sinuses and mastoids: Moderate mucosal thickening is noted within the right sphenoid sinus. The remai nelly visualized paranasal sinuses are clear. The mastoid air cells are well pneumatized. Orbits: The bony orbits are grossly intact. There are bilateral ocular lens implants. IMPRESSION: There is no hemorrhage, mass effect, or evidence of acute territorial ischemia by CT marianne sy. Electronically signed by: Diego Ricardo M.D. 08/21/2018 4:50 PM
[2018-08-21 16:57] LABS: Albumin Level 3.7 gm/dl (3.4-5.0); BUN Creatinine Ratio 20.5 (10-20); Creatinine Clr Calc Pharmacy 61.4 ml/min; Est GFR (African American) 77.8; Est GFR (Non-African American) 67.1; Magnesium 1.9 mg/dl (1.8-2.4); Potassium 3.7 mmol/L (3.5-5.1)
[2018-08-21 17:07] LABS: Albumin Globulin Ratio 0.7 (0.9-2); Bilirubin,Total 0.7 mg/dl (0.2-1); Total Protein 8.7 gm/dl (6.4-8.2); Troponin I 0.017 ng/ml (0-0.045)
[2018-08-21 17:19] LABS: Appearance Urine Clear (Clear); Bacteria Urine Automated 1+ (Negative); Bilirubin Urine Negative (Negative); Blood Urine Negative (Negative); Cast Urine Automated 0 /lpf (0-5); Color Urine Yellow; Epithelial Cell Urine Auto 20-30 /lpf (0-5); Glucose Urine UA Negative (Negative); Ketones Urine Negative (Negative); Leukocyte Esterase Urine 2+ (Negative); Nitrite Urine Negative (Negative); Protein Urine Negative (Negative); RBC Urine Automated 0-4 /hpf (0-4); Specific Gravity Urine 1.012 (1.000-1.030); Urobilinogen Urine Negative (Negative)
--- NOTE | 2018-08-21 18:13 | Emergency Department Note ---
Entered by Sara Pepe acting as a scribe for Diego Ram MD History of Present Illness General Chief complaint: Vomiting Stated complaint: nausea/vomit Time Seen by Provider: 08/21/18 14:38 Source: patient Mode of arrival: EMS Limitations: no limitations History of Present Illness Provider complaint: Weakness Onset (ago): hour(s) ("couple hours ago") greater than 10 Severity: moderate Maximum Pain Intensity: 0 Associated symptoms: + loss of appetite Treatments prior to arrival: none Patient is a 63 year old female presenting to the ED via EMS for weakness that began today. Patients home health healthcare economics manager shares that patient has not been alert and she has been increasingly weak for a few days. Patient was reportedly unsure what day it was. She notes that this is how she is when she does have an infection, but she has never been to this severity. Caregiver shares that patient has been in bed since being discharged from the ED on 08/19/17, and has not been walking or as active as normal. Caregiver also shares that patient did not drink or eat today, and has not taken her medications as a result. She shares she did notice patients breathing become heavier and labored. Caregiver shares that patient is bedridden due to neuropathy in legs and feet, Parkinsons , heart disease and diabetes. Caregiver shares that she does take Gabapentin, but not Coumadin. Patients sister, who is power of insurance defense attorney, notes patient is DNR. Home Medications Home Medications Medication Instructions Recorded Confirmed Type atorvastatin 40 mg PO QAM 04/02/18 08/21/18 History carbidopa-levodopa 1 tab PO TID 04/02/18 08/21/18 History ciclopirox 1 applic TOPICAL HS 04/02/18 08/21/18 History clobetasol 1 applic TOPICAL HS 04/02/18 08/21/18 History clopidogrel 75 mg PO HS 04/02/18 08/21/18 History diclofenac sodium 4 g TOPICAL QID 04/02/18 08/21/18 History docusate sodium [Colace] 100 mg PO BID 04/02/18 08/21/18 History escitalopram oxalate 15 mg PO QAM 04/02/18 08/21/18 History ipratropium bromide 2 spray INTRANASAL BID 04/02/18 08/21/18 History isosorbide mononitrate 90 mg PO QAM 04/02/18 08/21/18 History ketoconazole 1 applic TOPICAL DAILY 04/02/18 08/21/18 History magnesium citrate 120 ml PO DAILY PRN 04/02/18 08/21/18 History metronidazole 1 applic TOPICAL DAILY 04/02/18 08/21/18 History nitroglycerin 0.4 mg SUBLINGUAL DIRECTED PRN 04/02/18 08/21/18 History ondansetron 4 mg TRANSLINGUAL Q8H PRN 04/02/18 08/21/18 History pantoprazole 40 mg PO QAM 04/02/18 08/21/18 History tamsulosin 0.4 mg PO QAM 04/02/18 08/21/18 History aspirin 81 mg PO DAILY 05/02/18 08/21/18 History bisacodyl 5 mg PO QAM 05/02/18 08/21/18 History cetirizine 10 mg PO DAILY 05/02/18 08/21/18 History polyethylene glycol 3350 [Miralax] 17 g PO BID 05/22/18 08/21/18 History albuterol sulfate [Ventolin HFA] 2 puff INHALATION Q4H PRN 08/21/18 08/21/18 History insulin aspart U-100 [Novolog 8 units SUBCUT ACHS 08/21/18 08/21/18 History Flexpen U-100 Insulin] insulin glargine [Lantus U-100 20 units SUBCUT BID 08/21/18 08/21/18 History Insulin] menthol-zinc oxide 1 applic TOPICAL Q8H PRN 08/21/18 08/21/18 History metoprolol succinate 50 mg PO Q12H 08/21/18 08/21/18 History sennosides-docusate sodium 1 tab PO QAM 08/21/18 08/21/18 History [Senokot-S] Allergies Allergy/AdvReac Type Severity Reaction Status Date / Time bee venom protein (honey bee) Allergy Severe SWELLING Verified 05/30/18 11:17 lidocaine Allergy Severe ANAPHYLAXIS Verified 05/30/18 11:17 morphine Allergy Mild itching Verified 05/30/18 11:17 tramadol Allergy Mild ITCHING Verified 05/30/18 11:17 trazodone Allergy Mild ITCHING Verified 05/30/18 11:17 Past Med/Surg History Medical History Presence of combination internal cardiac defibrillator (ICD) and pacemaker ( Chronic) implanted 2012. Hospitalized 02/2018 for ICD discharge--deemed inappropriate due to an atrial tach episode by EP. Device settings were changed including deactivation of her vtach zone and her vfib zone was reduced from 214 bpm to 200 bpm. No additional discharges. Parkinson disease (Chronic) Diastolic CHF (Chronic) H/O--edema has improved over the past year, no longer on diuretic therapy per cardio 04/16/18 Coronary atherosclerosis of [place] coronary vessel (Chronic 08/24/11) s/p CABG (SVG to OM, SVT to OM2, MEHTA to LAD) on 04/05/1998 s/p HEIDY x2 (LM and LAD) in 06/2012" Ventricular fibrillation (Chronic) VF arrest x2 s/p ICD placement 2012, preserved LV EF. CKD (chronic kidney disease), stage III (Chronic) Polymyalgia rheumatica (Chronic) GERD (gastroesophageal reflux disease) (Chronic) Osteoarthritis (Chronic) Diabetic retinopathy (Chronic) Diabetic nephropathy (Chronic) Depression (Chronic) Obesity, Class II, BMI 35-39.9, with comorbidity (Chronic) Constipation (Inactive) Surgical History H/O: hysterectomy (Resolved) SUZY History of cholecystectomy (Resolved) S/P implantation of automatic cardioverter/defibrillator (AICD) (Resolved) History of appendectomy (Resolved) S/P triple vessel bypass (Resolved) 1997 H/O eye surgery (Chronic) Family History Other No pertinent family history Social History Current Living Situation: Family Current Living Situation Comment: 12 hour home care Other Information That Helps Us Care for You: No Feels Safe at Home: Yes Smoking Status: Smoker, status unknown Hx Alcohol Use: No Hx Substance Use: No Beliefs That Will Affect Care: None Preferred Language: Persian Communication Ability: Impaired Review of Systems See HPI for pertinent positives & negatives. Unobtainable due to cognitive status Physical Exam Vital Signs Vital Signs - 24 hr 08/21/18 14:08 08/21/18 15:53 08/21/18 17:51 Temperature 36.8 C Temperature Source Oral Sepsis Recent Fever Within 48 Hours No Sepsis New/Unexplained Change in Mental Status No Sepsis Action Taken by Nursing No Action Required Pulse Rate 60 Pulse Rate [Apical] 62 66 Pulse Rhythm Regular Pulse Rhythm [Apical] Pulse Strength Normal Respiratory Rate 18 18 20 Respiratory Effort / Characteristics Non-Labored Spontaneous Respiratory Depth Normal Respiratory Pattern Regular Blood Pressure 170/74 H Blood Pressure [Left Arm] 132/72 142/74 H Blood Pressure Mean 106 Blood Pressure Mean [Left Arm] 92 96 Blood Pressure Position [Left Arm] Pulse Oximetry 96 97 95 Oxygen Delivery Method Room Air Room Air Room Air 08/21/18 18:24 08/21/18 19:05 08/21/18 19:30 Temperature Temperature Source Sepsis Recent Fever Within 48 Hours Sepsis New/Unexplained Change in Mental Status Sepsis Action Taken by Nursing Pulse Rate 60 60 Pulse Rate [Apical] 60 Pulse Rhythm Pulse Rhythm [Apical] Pulse Strength Respiratory Rate 20 18 Respiratory Effort / Characteristics Respiratory Depth Respiratory Pattern Regular Blood Pressure 145/87 H Blood Pressure [Left Arm] 148/79 H Blood Pressure Mean Blood Pressure Mean [Left Arm] 102 Blood Pressure Position [Left Arm] Pulse Oximetry 98 98 Oxygen Delivery Method Room Air Room Air 08/21/18 19:36 Temperature 36.8 C Temperature Source Oral Sepsis Recent Fever Within 48 Hours Sepsis New/Unexplained Change in Mental Status Sepsis Action Taken by Nursing Pulse Rate Pulse Rate [Apical] 61 Pulse Rhythm Pulse Rhythm [Apical] Regular Pulse Strength Respiratory Rate 18 Respiratory Effort / Characteristics Non-Labored Spontaneous Respiratory Depth Normal Respiratory Pattern Regular Blood Pressure Blood Pressure [Left Arm] 150/75 H Blood Pressure Mean Blood Pressure Mean [Left Arm] 100 Blood Pressure Position [Left Arm] Lying Pulse Oximetry 95 Oxygen Delivery Method Room Air GENERAL: Patient is in no acute distress. HEENT: No acute trauma, normocephalic atraumatic, mucous membranes dry, no nasal congestion, no scleral icterus. PERRL. NECK: No stridor, no adenopathy, no meningismus, trachea is midline. LUNGS: Clear to auscultation bilaterally, no wheeze, no rhonchi, breath sounds equal. HEART: Without murmurs gallops or rubs, regular rate and rhythm. ABDOMEN: Soft, nontender, bowel sounds positive, no hernias, no peritonitis. EXTREMITIES: No cyanosis or edema, full range of motion of all the joints without pain or difficulty, no signs for acute trauma. NEUROLOGIC: Sleepy, occasionally awakes and looks around room. Currently nonverbal. No obvious extremity weakness. All extremities seem somewhat stiff. SKIN: No rash, no jaundice, no diaphoresis. Course 1441: Past medical records reviewed. The patient was evaluated in room B09, and a complete history and physical examination were performed. 1455: Discussed case with sister, patients power of insurance defense attorney, who noted that patient is DNR. 1719: Discussed patient case with Dr. Soni, who accepts patient for admission. 1723: Updated patient and family on plan for admission. Family is agreeable to plan. Administered Medications Carbidopa/Levodopa (Sinement Cr 25/100mg) 1 tab PO TID YANG Stop: 09/20/18 20:59 Last Admin: 08/21/18 21:35 Dose: 1 tab Clobetasol Propionate (Clobetasol Propionate Oint) 1 appln EXT HS YANG Stop: 09/20/18 20:59 Last Admin: 08/21/18 21:19 Dose: 1 appln Clopidogrel Bisulfate (Plavix) 75 mg PO HS YANG Stop: 09/20/18 20:59 Last Admin: 08/21/18 21:02 Dose: 75 mg Docusate Sodium (Colace) 100 mg PO BID YANG Stop: 09/20/18 20:59 Last Admin: 08/21/18 21:02 Dose: 100 mg Ipratropium [place] (Atrovent Nasal [place] 0.06%) 2 sprays NA BID YANG Stop: 09/20/18 20:59 Last Admin: 08/21/18 21:19 Dose: 2 sprays Metoprolol Succinate (Toprol Xl) 50 mg PO Q12 YANG Stop: 09/20/18 20:29 Last Admin: 08/21/18 21:02 Dose: 50 mg Miscellaneous (Order Awaiting Action) 1 ea N/A QS YANG Stop: 09/21/18 00:00 Last Admin: 08/21/18 22:03 Dose: Not Given Miscellaneous (Order Awaiting Action) 1 ea N/A QS YANG Stop: 09/21/18 00:00 Last Admin: 08/21/18 22:03 Dose: Not Given Miscellaneous (Order Awaiting Action) 1 ea N/A QS YANG Stop: 09/21/18 00:00 Last Admin: 08/21/18 22:03 Dose: Not Given Polyethylene Glycol (Miralax Powder Packet) 17 gm PO BID YANG Stop: 09/20/18 20:59 Last Admin: 08/21/18 21:02 Dose: 17 gm Discontinued Medications Sodium Chloride (Nss 1000ml) 1,000 mls @ 999 mls/hr IV .Q1H1M YANG Stop: 08/21/18 15:45 Last Infusion: 08/21/18 18:23 Dose: 0 mls/hr Admin: 08/21/18 15:44 Dose: 999 mls/hr Cefepime HCl 2,000 mg/ Syringe 20 mls @ 5.5 mls/min IV NOW STA Stop: 08/21/18 14:54 Last Admin: 08/21/18 15:44 Dose: 5.5 mls/min Ondansetron HCl (Zofran) 4 mg IV NOW STA Stop: 08/21/18 14:45 Last Admin: 08/21/18 15:44 Dose: 4 mg Medical Decision Making Differential Diagnosis Differential Diagnosis includes:dehydration, electrolyte imbalance, anemia, stroke, UTI, sepsis, pneumonia, bowel obstruction, medication reaction, influenza Medical Records Attestation: I reviewed the patient's medical records. Seen on 08/19 for weakness and vomiting, concern for UTI. Hydrated and no urinary infection. No vomiting while in ED. Discharged back home with 24 hour shelter Medications Current Medication List: was personally reviewed by me Laboratory Data Attestation: I reviewed the patient's lab results. Result diagrams: 08/21/18 16:14 08/21/18 16:14 Lab Results 08/21/18 08/21/18 08/21/18 Range/Units 15:50 16:14 16:14 WBC (4.8-10.8) K/uL RBC (4.2-5.4) M/uL Hgb (12.0-16.0) g/dL Hct (37-47) % MCV (80-100) fL MCH (25-34) pg MCHC (32-36) g/dL RDW Std Deviation (36.4-46.3) fL RDW Coeff of [place] (11.5-14.5) % Plt Count (130-400) K/uL MPV (7.4-10.4) fL Immature Gran % (Auto) % Neut % (Auto) % Lymph % (Auto) % [place] % (Auto) % Eos % (Auto) % Baso % (Auto) % Immature Gran # (Auto) (0.00-0.02) K/uL Neut # (Auto) (1.4-6.5) K/uL Lymph # (Auto) (1.2-3.4) K/uL [place] # (Auto) (0.11-0.59) K/uL Eos # (Auto) (0-0.5) K/uL Baso # (Auto) (0-0.2) K/uL VBG pH (7.36-7.41) VBG pCO2 (38-50) mmHg VBG pO2 mmHg VBG HCO3 mmol/L VBG O2 Saturation % VBG Base Excess mEq/L Barometric Pressure mm/Hg Sodium (136-145) mmol/L Potassium (3.5-5.1) mmol/L Chloride (98-107) mmol/L Carbon Dioxide (21-32) mmol/L Anion Gap (3-11) BUN (7-18) mg/dl Creatinine (0.6-1.2) mg/dl Est Cr Clr Drug Dosing ml/min Est GFR ( Amer) Est GFR (Non-Af Amer) BUN/Creatinine Ratio (10-20) Glucose (70-99) mg/dl POC Glucose (70-99) Lactate 2.0 (0.4-2.0) mmol/L Calcium (8.5-10.1) mg/dl Magnesium (1.8-2.4) mg/dl Total Bilirubin (0.2-1) mg/dl AST (15-37) U/L ALT (12-78) U/L Alkaline Phosphatase (45-117) U/L Ammonia < 10.0 L (11-32) umol/L Troponin I (0-0.045) ng/ml Total Protein (6.4-8.2) gm/dl Albumin (3.4-5.0) gm/dl Globulin (2.5-4.0) gm/dl Albumin/Globulin Ratio (0.9-2) TSH (0.300-4.500) uIu/ml Specimen Hemolysis Urine Color Urine Appearance (Clear) Urine pH (4.5-7.5) Ur Specific [place] (1.000-1.030) Urine Protein (Negative) Urine Glucose (UA) (Negative) Urine Ketones (Negative) Urine Blood (Negative) Urine Nitrite (Negative) Urine Bilirubin (Negative) Urine Urobilinogen (Negative) Ur Leukocyte Esterase (Negative) Urine WBC (Auto) (0-5) /hpf Urine RBC (Auto) (0-4) /hpf U Hyaline Cast (Auto) (0-5) /lpf U Epithel Cells (Auto) (0-5) /lpf Urine Bacteria (Auto) (Negative) Influenza Type A Ag Neg for Influ A (Neg) Influenza Type B Ag Neg for Influ B (Neg) 08/21/18 08/21/18 08/21/18 Range/Units 16:14 16:14 16:14 WBC 10.54 (4.8-10.8) K/uL RBC 5.05 (4.2-5.4) M/uL Hgb 14.4 (12.0-16.0) g/dL Hct 42.4 (37-47) % MCV 84.0 (80-100) fL MCH 28.5 (25-34) pg MCHC 34.0 (32-36) g/dL RDW Std Deviation 38.9 (36.4-46.3) fL RDW Coeff of [place] 13.0 (11.5-14.5) % Plt Count 199 (130-400) K/uL MPV 10.5 H (7.4-10.4) fL Immature Gran % (Auto) 0.2 % Neut % (Auto) 52.4 % Lymph % (Auto) 38.7 % [place] % (Auto) 8.3 % Eos % (Auto) 0.1 % Baso % (Auto) 0.3 % Immature Gran # (Auto) 0.02 (0.00-0.02) K/uL Neut # (Auto) 5.53 (1.4-6.5) K/uL Lymph # (Auto) 4.08 H (1.2-3.4) K/uL [place] # (Auto) 0.87 H (0.11-0.59) K/uL Eos # (Auto) 0.01 (0-0.5) K/uL Baso # (Auto) 0.03 (0-0.2) K/uL VBG pH 7.36 (7.36-7.41) VBG pCO2 63 H (38-50) mmHg VBG pO2 30 mmHg VBG HCO3 35 mmol/L VBG O2 Saturation < 60.0 % VBG Base Excess 6.7 mEq/L Barometric Pressure 730.5 mm/Hg Sodium 130 L (136-145) mmol/L Potassium 3.7 (3.5-5.1) mmol/L Chloride 95 L (98-107) mmol/L Carbon Dioxide 32 (21-32) mmol/L Anion Gap 3.0 (3-11) BUN 18 (7-18) mg/dl Creatinine 0.90 (0.6-1.2) mg/dl Est Cr Clr Drug Dosing 61.4 ml/min Est GFR ( Amer) 77.8 Est GFR (Non-Af Amer) 67.1 BUN/Creatinine Ratio 20.5 H (10-20) Glucose 168 H (70-99) mg/dl POC Glucose (70-99) Lactate (0.4-2.0) mmol/L Calcium 9.0 (8.5-10.1) mg/dl Magnesium 1.9 (1.8-2.4) mg/dl Total Bilirubin 0.7 (0.2-1) mg/dl AST 19 (15-37) U/L ALT 24 (12-78) U/L Alkaline Phosphatase 72 (45-117) U/L Ammonia (11-32) umol/L Troponin I 0.017 (0-0.045) ng/ml Total Protein 8.7 H (6.4-8.2) gm/dl Albumin 3.7 (3.4-5.0) gm/dl Globulin 5.0 H (2.5-4.0) gm/dl Albumin/Globulin Ratio 0.7 L (0.9-2) TSH 2.400 (0.300-4.500) uIu/ml Specimen Hemolysis Urine Color Urine Appearance (Clear) Urine pH (4.5-7.5) Ur Specific [place] (1.000-1.030) Urine Protein (Negative) Urine Glucose (UA) (Negative) Urine Ketones (Negative) Urine Blood (Negative) Urine Nitrite (Negative) Urine Bilirubin (Negative) Urine Urobilinogen (Negative) Ur Leukocyte Esterase (Negative) Urine WBC (Auto) (0-5) /hpf Urine RBC (Auto) (0-4) /hpf U Hyaline Cast (Auto) (0-5) /lpf U Epithel Cells (Auto) (0-5) /lpf Urine Bacteria (Auto) (Negative) Influenza Type A Ag (Neg) Influenza Type B Ag (Neg) 08/21/18 08/21/18 Range/Units 17:05 21:08 WBC (4.8-10.8) K/uL RBC (4.2-5.4) M/uL Hgb (12.0-16.0) g/dL Hct (37-47) % MCV (80-100) fL MCH (25-34) pg MCHC (32-36) g/dL RDW Std Deviation (36.4-46.3) fL RDW Coeff of [place] (11.5-14.5) % Plt Count (130-400) K/uL MPV (7.4-10.4) fL Immature Gran % (Auto) % Neut % (Auto) % Lymph % (Auto) % [place] % (Auto) % Eos % (Auto) % Baso % (Auto) % Immature Gran # (Auto) (0.00-0.02) K/uL Neut # (Auto) (1.4-6.5) K/uL Lymph # (Auto) (1.2-3.4) K/uL [place] # (Auto) (0.11-0.59) K/uL Eos # (Auto) (0-0.5) K/uL Baso # (Auto) (0-0.2) K/uL VBG pH (7.36-7.41) VBG pCO2 (38-50) mmHg VBG pO2 mmHg VBG HCO3 mmol/L VBG O2 Saturation % VBG Base Excess mEq/L Barometric Pressure mm/Hg Sodium (136-145) mmol/L Potassium (3.5-5.1) mmol/L Chloride (98-107) mmol/L Carbon Dioxide (21-32) mmol/L Anion Gap (3-11) BUN (7-18) mg/dl Creatinine (0.6-1.2) mg/dl Est Cr Clr Drug Dosing ml/min Est GFR ( Amer) Est GFR (Non-Af Amer) BUN/Creatinine Ratio (10-20) Glucose (70-99) mg/dl POC Glucose 128 H (70-99) Lactate (0.4-2.0) mmol/L Calcium (8.5-10.1) mg/dl Magnesium (1.8-2.4) mg/dl Total Bilirubin (0.2-1) mg/dl AST (15-37) U/L ALT (12-78) U/L Alkaline Phosphatase (45-117) U/L Ammonia (11-32) umol/L Troponin I (0-0.045) ng/ml Total Protein (6.4-8.2) gm/dl Albumin (3.4-5.0) gm/dl Globulin (2.5-4.0) gm/dl Albumin/Globulin Ratio (0.9-2) TSH (0.300-4.500) uIu/ml Specimen Hemolysis Urine Color Yellow Urine Appearance Clear (Clear) Urine pH 6.0 (4.5-7.5) Ur Specific [place] 1.012 (1.000-1.030) Urine Protein Negative (Negative) Urine Glucose (UA) Negative (Negative) Urine Ketones Negative (Negative) Urine Blood Negative (Negative) Urine Nitrite Negative (Negative) Urine Bilirubin Negative (Negative) Urine Urobilinogen Negative (Negative) Ur Leukocyte Esterase 2+ H (Negative) Urine WBC (Auto) 5-10 H (0-5) /hpf Urine RBC (Auto) 0-4 (0-4) /hpf U Hyaline Cast (Auto) 0 (0-5) /lpf U Epithel Cells (Auto) 20-30 H (0-5) /lpf Urine Bacteria (Auto) 1+ H (Negative) Influenza Type A Ag (Neg) Influenza Type B Ag (Neg) Imaging Data Radiologist's Impression: XR KUB CLINICAL HISTORY: 63 years-old Female presenting with poss obstruction, recent vomiting. TECHNIQUE: Single supine view of the abdomen was obtained. COMPARISON: 05/16/[address] from 08/19/2018. FINDINGS: Cholecystectomy clips noted. No large stool burden is evident on the rectum on the current exam. Nonobstructive bowel gas pattern. No gross pneumoperitoneum. Allowing for bowel gas and stool, no calcifications to suggest nephrolithiasis. Degenerative changes of the spine. Lung bases clear. IMPRESSION: 1. No acute intra-abdominal pathology. 2. Clearance of prior large stool burden in the rectum. Electronically signed by: Robert Cesar M.D. 08/21/2018 3:18 PM XR chest 1V portable CLINICAL HISTORY: weakness mental status change COMPARISON STUDY: 08/19/2018 FINDINGS: Lungs are considered clear. Moderate emphysematous change. Prior median sternotomy. Permanent cardiac pacemaker in good position. IMPRESSION: No acute process. Chronic and postoperative change. The above report was generated using voice recognition software. It may contain grammatical, syntax or spelling errors. Electronically signed by: James Nickerson M.D. 08/21/2018 3:[address] SCAN OF THE BRAIN WITHOUT IV CONTRAST CLINICAL HISTORY: Generalized weakness. COMPARISON STUDY: CT of the brain dated 08/19/2018. TECHNIQUE: Unenhanced axial CT scan of the brain is performed from the vertex to the skull base. A dose lowering technique was utilized adhering to the principles of ALARA. CT DOSE: 537.48 mGy.cm FINDINGS: Brain parenchyma: There are age-related involutional changes noting moderate subcortical and periventricular microangiopathic change. There is no hemorrhage , mass effect, or evidence of acute territorial ischemia by CT criteria. Titus- white matter differentiation is preserved. No extra-axial fluid collection is seen. Ventricles, sulci, cisterns: Prominent secondary to involutional change. Intracranial vasculature: There is mild atherosclerotic calcification of the cavernous carotid arteries. Calvarium: Unremarkable. Sinuses and mastoids: Moderate mucosal thickening is noted within the right sphenoid sinus. The remaining visualized paranasal sinuses are clear. The mastoid air cells are well pneumatized. Orbits: The bony orbits are grossly intact. There are bilateral ocular lens implants. IMPRESSION: There is no hemorrhage, mass effect, or evidence of acute territorial ischemia by CT criteria. Electronically signed by: Diego Ricardo M.D. 08/21/2018 4:50 PM ECG Data Attestation: I personally reviewed and interpreted this ECG as follows: Indication: weakness Rate (beats per minute): 62 Rhythm: other (atrially paced) Findings: + other (nonspecific ST change diffusely); no PVC and no ST elevation Blood Pressure Blood Pressure Findings: Elevated blood pressure Blood Pressure Disposition: further management by hospitalist [facility] Narrative There is no leukocytosis or concerning anemia. Renal panel testing shows a mildly low sodium although, this number was not thought near critical. No kidney failure. VBG did not show acidosis, the CO2 was slightly elevated at 63 , not really high enough to cause significant somnolence. Lactic acid level was not elevated making sepsis less likely. There was no hepatitis. Ammonia level was not elevated. EKG shows an atrial pacemaker, no acute ischemia. Cardiac enzyme testing x1 was not consistent with acute cardiac injury. The patient appeared to be in a euthyroid state. Urinalysis did not show evidence for infection. Urine culture is pending. Chest film did not show pneumonia or CHF. KUB did not show obstruction, the constipation from a few days ago has cleared. Brain CT showed no acute bleed or mass-effect. On exam, patient was not toxic. She was sleepy but would occasionally awake. There were no focal neurologic deficits. The patient received IV saline. She was given IV cefepime as empiric antibiotic coverage. She received IV Zofran for nausea. The cause for the patient's persistent somnolence and weakness is unclear. She may just be suffering from dehydration. Certainly bacteremia or some type of infection not found on her workup is a possibility, this is why the empiric antibiotics were given. As she is back now for a second time in just a few days , I do think a hospital stay is warranted. As per her caregivers, she cannot take her normal medications. I spoke to her sister over the phone who is the power of insurance defense attorney. I spoke to the on-call hospitalist. Case management has been involved. Impression & Plan Change in mental status, Weakness, Dehydration, Failure of outpatient treatment Discharge Plan Visit Data *Final* Discharge Date/Time: 08/21/18 19:05 Chief Complaint: Vomiting Stated Complaint: nausea/vomit ED Provider: Diego Ram Discharge Problem: Change in mental status, Weakness, Dehydration, Failure of outpatient treatment Patient Disposition: Admitted As Inpatient Discharge Instructions Interventions: ED Discharge Assessment Last Done: 08/21/18 19:05 The angela's documentation has been prepared under my direction and personally reviewed by me in its entirety. I confirm that the note above accurately reflects all work, treatment, procedures, and medical decision making performed by me.
--- NOTE | 2018-08-21 18:30 | History & Physical Report ---
Date of Service August 21, 2018 Assessment & Plan (1) Change in mental status: Change in mental status. No acute findings on CT of head. Ammonia normal. Consider encephalopathy secondary to infection. No infiltrates on chest x-ray. Had some vomiting a few days ago, apparently resolved. Urine shows WBC's, but also epithelial cells. Blood and urine cultures obtained in ED. Empiric antibiotic therapy with cefepime pending culture results. Consult Neuro if no improvement. (2) Coronary atherosclerosis of [place] coronary vessel: Troponin negative. No acute EKG changes. Continue usual meds. (3) Diastolic CHF: Compensated. Diurese PRN. (4) Hypertension: Continue usual meds. May need parenteral meds if unable to take oral meds. Follow and titrate Rx. (5) Asthma: Pulmonary status stable. (6) Diabetes mellitus type 2 with complications: Random blood sugar 168. Check hemoglobin A1C. Lantus / NovoLog per protocol with reduction of Lantus dose until PO intake improves. (7) Parkinson disease: Continue carbidopa/levodopa. (8) Do not resuscitate status: Code status is DNR per ED physician's discussion with patient's sister/ POA. (9) DVT prophylaxis: Increased risk for VTE due to age and immobility. SQ enoxaparin. (10) Discharge planning issues: To be determined. Internal Medicine follow-up with Dr. Ramirez. History of Present Illness Chief Complaint: weakness, confusion Primary Care Provider: Reginaldo Ramirez DO 63 YO female followed by Dr. Ramirez. History of ischemic heart disease, hypertension, diabetes mellitus, Parkinson's disease, and other problems as noted. Brought to ED 08/19/18 with confusion and vomiting. No fever or other symptoms. ED evaluation was negative. No evidence of UTI or other acute process. Patient was discharged to home. Returned to ED today for further evaluation. Patient unable to provide any information. Caregiver informed ED physician that she has been somnolent and very weak. Not eating, drinking, or taking oral meds. No reported fever, cough. Allergies Allergy/AdvReac Type Severity Reaction Status Date / Time bee venom protein (honey bee) Allergy Severe SWELLING Verified 05/30/18 11:17 lidocaine Allergy Severe ANAPHYLAXIS Verified 05/30/18 11:17 morphine Allergy Mild itching Verified 05/30/18 11:17 tramadol Allergy Mild ITCHING Verified 05/30/18 11:17 trazodone Allergy Mild ITCHING Verified 05/30/18 11:17 Home Medications Home Medications Medication Instructions Recorded Confirmed Type atorvastatin 40 mg PO QAM 04/02/18 08/21/18 History carbidopa-levodopa 1 tab PO TID 04/02/18 08/21/18 History ciclopirox 1 applic TOPICAL HS 04/02/18 08/21/18 History clobetasol 1 applic TOPICAL HS 04/02/18 08/21/18 History clopidogrel 75 mg PO HS 04/02/18 08/21/18 History diclofenac sodium 4 g TOPICAL QID 04/02/18 08/21/18 History docusate sodium [Colace] 100 mg PO BID 04/02/18 08/21/18 History escitalopram oxalate 15 mg PO QAM 04/02/18 08/21/18 History ipratropium bromide 2 spray INTRANASAL BID 04/02/18 08/21/18 History isosorbide mononitrate 90 mg PO QAM 04/02/18 08/21/18 History ketoconazole 1 applic TOPICAL DAILY 04/02/18 08/21/18 History magnesium citrate 120 ml PO DAILY PRN 04/02/18 08/21/18 History metronidazole 1 applic TOPICAL DAILY 04/02/18 08/21/18 History nitroglycerin 0.4 mg SUBLINGUAL DIRECTED PRN 04/02/18 08/21/18 History ondansetron 4 mg TRANSLINGUAL Q8H PRN 04/02/18 08/21/18 History pantoprazole 40 mg PO QAM 04/02/18 08/21/18 History tamsulosin 0.4 mg PO QAM 04/02/18 08/21/18 History aspirin 81 mg PO DAILY 05/02/18 08/21/18 History bisacodyl 5 mg PO QAM 05/02/18 08/21/18 History cetirizine 10 mg PO DAILY 05/02/18 08/21/18 History polyethylene glycol 3350 [Miralax] 17 g PO BID 05/22/18 08/21/18 History albuterol sulfate [Ventolin HFA] 2 puff INHALATION Q4H PRN 08/21/18 08/21/18 History insulin aspart U-100 [Novolog 8 units SUBCUT ACHS 08/21/18 08/21/18 History Flexpen U-100 Insulin] insulin glargine [Lantus U-100 20 units SUBCUT BID 08/21/18 08/21/18 History Insulin] menthol-zinc oxide 1 applic TOPICAL Q8H PRN 08/21/18 08/21/18 History metoprolol succinate 50 mg PO Q12H 08/21/18 08/21/18 History sennosides-docusate sodium 1 tab PO QAM 08/21/18 08/21/18 History [Senokot-S] Past Med/Surg History Medical History Asthma (Chronic) Diabetes mellitus type 2 with complications (Chronic) Hypertension (Chronic) Presence of combination internal cardiac defibrillator (ICD) and pacemaker ( Chronic) implanted 2012. Hospitalized 02/2018 for ICD discharge--deemed inappropriate due to an atrial tach episode by EP. Device settings were changed including deactivation of her vtach zone and her vfib zone was reduced from 214 bpm to 200 bpm. No additional discharges. Parkinson disease (Chronic) Diastolic CHF (Chronic) H/O--edema has improved over the past year, no longer on diuretic therapy per cardio 04/16/18 Coronary atherosclerosis of [place] coronary vessel (Chronic 08/24/11) s/p CABG (SVG to OM, SVT to OM2, MEHTA to LAD) on 04/05/1998 s/p HEIDY x2 (LM and LAD) in 06/2012" Ventricular fibrillation (Chronic) VF arrest x2 s/p ICD placement 2012, preserved LV EF. CKD (chronic kidney disease), stage III (Chronic) Polymyalgia rheumatica (Chronic) GERD (gastroesophageal reflux disease) (Chronic) Osteoarthritis (Chronic) Diabetic retinopathy (Chronic) Diabetic nephropathy (Chronic) Depression (Chronic) Obesity, Class II, BMI 35-39.9, with comorbidity (Chronic) Constipation (Inactive) Surgical History H/O: hysterectomy (Chronic) SUZY History of cholecystectomy (Chronic) S/P implantation of automatic cardioverter/defibrillator (AICD) (Chronic) History of appendectomy (Chronic) S/P triple vessel bypass (Chronic) 1997 H/O eye surgery (Chronic) Social History Current Living Situation: Family Current Living Situation Comment: 12 hour home care Other Information That Helps Us Care for You: No Feels Safe at Home: Yes Smoking Status: Smoker, status unknown Hx Alcohol Use: No Hx Substance Use: No Beliefs That Will Affect Care: None Preferred Language: Polish Communication Ability: Impaired Review of Systems Unobtainable due to cognitive status Physical Exam 2 Vital Signs (Past 24 Hours): Last Vital Signs Temp 36.8 C 08/21/18 14:08 Pulse 66 08/21/18 17:51 Resp 20 08/21/18 17:51 BP 142/74 H 08/21/18 17:51 Pulse Ox 95 08/21/18 17:51 Constitutional: no acute distress Eyes: PERRL, conjunctivae normal, anicteric sclerae ENMT: Mouth: + gingival abnormality (lower) and + dentures (upper) Neck: trachea midline, no thyromegaly Respiratory: normal respiratory effort, lungs clear to auscultation Cardiovascular: Rate/Rhythm: regular rate and regular rhythm Heart Sounds: + murmur (II/ sys murmur heard at LSB + apex); no gallop Extremities: normal capillary refill (1-2 seconds) Chest (Breasts): Chest: + pacemaker Gastrointestinal (Abdomen): Inspection/Auscultation: normal bowel sounds; abdomen not distended Percussion/Palpation: abdomen soft; abdomen nontender Skin: no rashes, warm and dry healed sternal scar Neurologic: somnolent, arousable; PERRL, EOMI; masked facies; moderate cogwheel rigidity upper extremities; diffuse mild-moderate motor weakness; patellar DTR's 1/2 bilat; plantar reflexes equivocal bilat Psychiatric: Orientation: + not oriented x 3 Lymphatic: no cervical lymphadenopathy Results & Data Laboratory Results Laboratory Results - last 24 hr 08/21/18 08/21/18 08/21/18 15:50 16:14 16:14 WBC RBC Hgb Hct MCV MCH MCHC RDW Std Deviation RDW Coeff of [place] Plt Count MPV Immature Gran % (Auto) Neut % (Auto) Lymph % (Auto) [place] % (Auto) Eos % (Auto) Baso % (Auto) Immature Gran # (Auto) Neut # (Auto) Lymph # (Auto) [place] # (Auto) Eos # (Auto) Baso # (Auto) VBG pH VBG pCO2 VBG pO2 VBG HCO3 VBG O2 Saturation VBG Base Excess Barometric Pressure Sodium Potassium Chloride Carbon Dioxide Anion Gap BUN Creatinine Est Cr Clr Drug Dosing Est GFR ( Amer) Est GFR (Non-Af Amer) BUN/Creatinine Ratio Glucose Lactate 2.0 Calcium Magnesium Total Bilirubin AST ALT Alkaline Phosphatase Ammonia < 10.0 L Troponin I Total Protein Albumin Globulin Albumin/Globulin Ratio TSH Specimen Hemolysis Urine Color Urine Appearance Urine pH Ur Specific [place] Urine Protein Urine Glucose (UA) Urine Ketones Urine Blood Urine Nitrite Urine Bilirubin Urine Urobilinogen Ur Leukocyte Esterase Urine WBC (Auto) Urine RBC (Auto) U Hyaline Cast (Auto) U Epithel Cells (Auto) Urine Bacteria (Auto) Influenza Type A Ag Neg for Influ A Influenza Type B Ag Neg for Influ B 08/21/18 08/21/18 08/21/18 16:14 16:14 16:14 WBC 10.54 RBC 5.05 Hgb 14.4 Hct 42.4 MCV 84.0 MCH 28.5 MCHC 34.0 RDW Std Deviation 38.9 RDW Coeff of [place] 13.0 Plt Count 199 MPV 10.5 H Immature Gran % (Auto) 0.2 Neut % (Auto) 52.4 Lymph % (Auto) 38.7 [place] % (Auto) 8.3 Eos % (Auto) 0.1 Baso % (Auto) 0.3 Immature Gran # (Auto) 0.02 Neut # (Auto) 5.53 Lymph # (Auto) 4.08 H [place] # (Auto) 0.87 H Eos # (Auto) 0.01 Baso # (Auto) 0.03 VBG pH 7.36 VBG pCO2 63 H VBG pO2 30 VBG HCO3 35 VBG O2 Saturation < 60.0 VBG Base Excess 6.7 Barometric Pressure 730.5 Sodium 130 L Potassium 3.7 Chloride 95 L Carbon Dioxide 32 Anion Gap 3.0 BUN 18 Creatinine 0.90 Est Cr Clr Drug Dosing 61.4 Est GFR ( Amer) 77.8 Est GFR (Non-Af Amer) 67.1 BUN/Creatinine Ratio 20.5 H Glucose 168 H Lactate Calcium 9.0 Magnesium 1.9 Total Bilirubin 0.7 AST 19 ALT 24 Alkaline Phosphatase 72 Ammonia Troponin I 0.017 Total Protein 8.7 H Albumin 3.7 Globulin 5.0 H Albumin/Globulin Ratio 0.7 L TSH 2.400 Specimen Hemolysis Urine Color Urine Appearance Urine pH Ur Specific [place] Urine Protein Urine Glucose (UA) Urine Ketones Urine Blood Urine Nitrite Urine Bilirubin Urine Urobilinogen Ur Leukocyte Esterase Urine WBC (Auto) Urine RBC (Auto) U Hyaline Cast (Auto) U Epithel Cells (Auto) Urine Bacteria (Auto) Influenza Type A Ag Influenza Type B Ag 08/21/18 17:05 WBC RBC Hgb Hct MCV MCH MCHC RDW Std Deviation RDW Coeff of [place] Plt Count MPV Immature Gran % (Auto) Neut % (Auto) Lymph % (Auto) [place] % (Auto) Eos % (Auto) Baso % (Auto) Immature Gran # (Auto) Neut # (Auto) Lymph # (Auto) [place] # (Auto) Eos # (Auto) Baso # (Auto) VBG pH VBG pCO2 VBG pO2 VBG HCO3 VBG O2 Saturation VBG Base Excess Barometric Pressure Sodium Potassium Chloride Carbon Dioxide Anion Gap BUN Creatinine Est Cr Clr Drug Dosing Est GFR ( Amer) Est GFR (Non-Af Amer) BUN/Creatinine Ratio Glucose Lactate Calcium Magnesium Total Bilirubin AST ALT Alkaline Phosphatase Ammonia Troponin I Total Protein Albumin Globulin Albumin/Globulin Ratio TSH Specimen Hemolysis Urine Color Yellow Urine Appearance Clear Urine pH 6.0 Ur Specific [place] 1.012 Urine Protein Negative Urine Glucose (UA) Negative Urine Ketones Negative Urine Blood Negative Urine Nitrite Negative Urine Bilirubin Negative Urine Urobilinogen Negative Ur Leukocyte Esterase 2+ H Urine WBC (Auto) 5-10 H Urine RBC (Auto) 0-4 U Hyaline Cast (Auto) 0 U Epithel Cells (Auto) 20-30 H Urine Bacteria (Auto) 1+ H Influenza Type A Ag Influenza Type B Ag Diagnostic Findings CHEST X-RAY, PORTABLE FINDINGS: Lungs are considered clear. Moderate emphysematous change. Prior median sternotomy. Permanent cardiac pacemaker in good position. IMPRESSION: No acute process. Chronic and postoperative change. The above report was generated using voice recognition software. It may contain grammatical, syntax or spelling errors. Electronically signed by: James Nickerson M.D. 08/21/2018 3:20 PM KUB FINDINGS: Cholecystectomy clips noted. No large stool burden is evident on the rectum on the current exam. Nonobstructive bowel gas pattern. No gross pneumoperitoneum. Allowing for bowel gas and stool, no calcifications to suggest nephrolithiasis. Degenerative changes of the spine. Lung bases clear. IMPRESSION: 1. No acute intra-abdominal pathology. 2. Clearance of prior large stool burden in the rectum. Electronically signed by: Robert Cesar M.D. 08/21/2018 3:[address] BRAIN FINDINGS: Brain parenchyma: There are age-related involutional changes noting moderate subcortical and periventricular microangiopathic change. There is no hemorrhage , mass effect, or evidence of acute territorial ischemia by CT criteria. [place]- white matter differentiation is preserved. No extra-axial fluid collection is seen. Ventricles, sulci, cisterns: Prominent secondary to involutional change. Intracranial vasculature: There is mild atherosclerotic calcification of the cavernous carotid arteries. Calvarium: Unremarkable. Sinuses and mastoids: Moderate mucosal thickening is noted within the right sphenoid sinus. The remaining visualized paranasal sinuses are clear. The mastoid air cells are well pneumatized. Orbits: The bony orbits are grossly intact. There are bilateral ocular lens implants. IMPRESSION: There is no hemorrhage, mass effect, or evidence of acute territorial ischemia by CT criteria. Electronically signed by: Diego Ricardo M.D. 08/21/2018 4:50 PM Dictated: 08/21/18 1648 Transcribed: 08/21/18 1648 ECG Additional Comments: EKG performed at 14:31 reviewed and demonstrated atrial paced rhythm at 62/min, possible age-indeterminate inferior infarct. EKG performed at 15:05 reviewed and demonstrated normal sinus rhythm at 64/min, possible age-indeterminate inferior infarct. _ (1) Change in mental status Altered mental status type: unspecified Coma depth: Coma timing: Qualified Code(s): R41.82 - Altered mental status, unspecified
[2018-08-21] MEDS ORDERED: ONDANSETRON 4 MG OD TAB PO PRN (19:15)
[2018-08-21] MEDS ORDERED: NITROGLYCERIN SL 0.4 MG/TAB TAB SL PRN (19:15)
[2018-08-21] MEDS ORDERED: ONDANSETRON INJ 2 MG/ML 2 ML VIAL IV PRN (19:30)
[2018-08-21] MEDS ORDERED: ALBUTEROL HFA 8 GM INHALER INH PRN (20:15)
[2018-08-21] MEDS ORDERED: CLOBETASOL PROPIONATE 0.05% OINT 15 GM TUBE EXT SCH (21:00)
[2018-08-21] MEDS: CLOPIDOGREL BISULFATE 75 MG TAB PO SCH (21:02)
[2018-08-21] MEDS: POLYETHYLENE (MIRALAX) 17 GM PACK PO SCH (21:02)
[2018-08-21] MEDS: DOCUSATE SODIUM 100 MG CAP PO SCH (21:02)
[2018-08-21] MEDS: METOPROLOL SUCC 50MG EXT REL TAB PO SCH (21:02)
[2018-08-21] MEDS: IPRATROPIUM BROMIDE NASAL SPRAY 0.06% 15ML SCH (21:19)
[2018-08-21] MEDS: CARBIDOPA/LEVODOPA 25/100MG EXT REL TAB PO SCH (21:35)
[2018-08-22] MEDS ORDERED: ENALAPRILAT 1.25 MG in DEXTROSE 5% 25 ML IV PRN (00:14)
[2018-08-22] MEDS: CEFEPIME 2,000 MG in SYRINGE 7.5 ML IV SCH ×2 (01:46→15:42)
[2018-08-22] MEDS ORDERED: GLUCOSE 40% GEL 15 GM TUBE PO PRN (04:37)
[2018-08-22] MEDS ORDERED: GLUCOSE 10 TABS/TUBE PO PRN (04:37)
[2018-08-22] MEDS ORDERED: DEXTROSE 50% 50 ML SYRINGE IV PRN (04:37)
[2018-08-22] MEDS ORDERED: GLUCAGON FOR INJ 1 MG VIAL SQ PRN (04:37)
[2018-08-22] MEDS ORDERED: CARBOHYDRATES FOR HYPOGLYCEMIA PO PRN (04:37)
[2018-08-22] MEDS ORDERED: D5NSS + 20MEQ KCL 20 MEQ/1,000 ML BAG IV SCH (04:45)
[2018-08-22] MEDS ORDERED: cloNIDine HCl 0.1 MG TAB PO ONE (04:45)
[2018-08-22 07:31] LABS: Hematocrit (blood only) 36.5 % (37-47); Hemoglobin 12.1 g/dL (12.0-16.0); Mean Corpuscular Hgb Conc 33.2 g/dL (32-36); Mean Corpuscular Volume 84.7 fL (80-100); Mean Platelet Volume 10.7 fL (7.4-10.4); Platelet Count 193 K/uL (130-400); RDW Standard Deviation 39.6 fL (36.4-46.3); Red Blood Count 4.31 M/uL (4.2-5.4); White Blood Count 10.14 K/uL (4.8-10.8)
[2018-08-22 07:39] LABS: INR 1.1 (0.9-1.1); Partial Thromboplastin Time 25.2 Seconds (21.0-31.0); Prothrombin Time 11.2 Seconds (9.0-12.0)
[2018-08-22 08:02] LABS: BUN Creatinine Ratio 20.1 (10-20); Calcium 8.7 mg/dl (8.5-10.1); Creatinine Clr Calc Pharmacy 45.1 ml/min; Est GFR (African American) 54.9; Est GFR (Non-African American) 47.4; Potassium 3.4 mmol/L (3.5-5.1)
[2018-08-22] MEDS: ENOXAPARIN INJ 40 MG/0.4 ML SYR SQ SCH (08:38)
[2018-08-22] MEDS: INSULIN ASPART 100 UNITS/ML 3 ML PEN SC SCH ×4 (08:39→20:27)
[2018-08-22] MEDS: METOPROLOL SUCC 50MG EXT REL TAB PO SCH ×2 (08:42→20:30)
[2018-08-22] MEDS: IPRATROPIUM BROMIDE NASAL SPRAY 0.06% 15ML SCH ×2 (08:42→20:29)
[2018-08-22 08:55] LABS: Estimated Average Glucose 200 mg/dl; Hemoglobin A1C 8.6 % (4.5-5.6)
[2018-08-22] MEDS ORDERED: INSULIN GLARGINE SOLOSTAR 100 UNITS/ML 3 ML PEN SC SCH (09:00)
[2018-08-22] MEDS: ASPIRIN 81 MG ECTAB PO SCH (09:26)
[2018-08-22] MEDS: DOCUSATE SODIUM/SENNA 50/8.6MG TAB PO SCH (09:26)
[2018-08-22] MEDS: CARBIDOPA/LEVODOPA 25/100MG EXT REL TAB PO SCH ×3 (09:26→20:29)
[2018-08-22] MEDS: ATORVASTATIN 40 MG TAB PO SCH (09:27)
[2018-08-22] MEDS: PANTOprazole 40 MG TAB PO SCH (09:27)
[2018-08-22] MEDS: CETIRIZINE HCL 10 MG TABLET PO SCH (09:27)
[2018-08-22] MEDS: TAMSULOSIN HCL 0.4 MG CAP PO SCH (09:27)
[2018-08-22] MEDS: DOCUSATE SODIUM 100 MG CAP PO SCH ×2 (09:27→20:29)
[2018-08-22] MEDS: ESCITALOPRAM OXALATE 10 MG TAB PO SCH (09:27)
[2018-08-22] MEDS: BISACODYL 5 MG TABEC PO SCH (09:28)
[2018-08-22] MEDS: ISOSORBIDE MONO EXTENDED REL 30 MG TABCR PO SCH (09:28)
[2018-08-22] MEDS: POLYETHYLENE (MIRALAX) 17 GM PACK PO SCH ×2 (09:28→20:29)
[2018-08-22] MEDS ORDERED: VANCOMYCIN CONSULT ACTIVE PRN (14:45)
[2018-08-22] MEDS ORDERED: VANCOMYCIN HCL 1,750 MG in SODIUM CHLORIDE 0.9% 500 ML IV SCH (15:00)
--- NOTE | 2018-08-22 15:22 | Pharmacy Report ---
Pharmacy Abx Initial Consult - Date of Service August 22, 2018 - Pharmacy Dosing Scope Date of Consult: 08/22/18 Consultation requested by: Dr. Garvey Pharmacy is consulted to initiate Vancomycin IV dosing therapy, order appropriate labs and adjust drug dose/frequency. - Subjective The patient is a 63 year old F admitted on 08/21/18 18:07. - Objective Height: 5 ft 4 in Weight: 70.6 kg Vital Signs (Past 12hrs): Vital Signs Temp Pulse Resp BP BP Pulse Ox 08/22/18 11:38 37.2 C 59 L 16 98/61 L 98 08/22/18 09:41 60 87/56 L 08/22/18 08:00 36.3 C L 63 16 139/84 99 08/22/18 03:49 37.0 C 70 18 182/82 H 99 Lab Results (24hrs): Laboratory Tests (24 Hours) 08/22/18 08/22/18 08/22/18 06:56 06:56 06:56 WBC 10.14 Neut # (Auto) Creatinine 1.20 D Est Cr Clr Drug Dosing 45.1 Procalcitonin 0.06 08/21/18 08/21/18 16:14 16:14 WBC 10.54 Neut # (Auto) 5.53 Creatinine 0.90 Est Cr Clr Drug Dosing 61.4 Procalcitonin Micro Results: 08/21/18 16:14 Blood Culture - Pending Blood - Risk Factors for Resistance * Hospitalization for 48 hours or more within the past 90 days * Antimicrobial use within the last 90 days (10 days of Unasyn in April 2018 and several days of ceftriaxone in May 2018) - Assessment & Plan Assessment 63 year old F receiving empiric vancomycin due to 1 of 2 blood cultures growing gram positive cocci Plan Vancomycin IV * Estimated PK Parameters: Vd 0.7 L/kg (49.4 L), Tamir 0.042 hr-1, t1/2 16.5 hr * Loading dose: 1750 mg (24 mg/kg) * Maintenance dose: 1000 mg IV (14 mg/kg) every 18 hours * Goal trough level for bacteremia (secondary to unknown etiology): 15 to 20 mcg /mL * Ordered serum creatinine level for tomorrow AM due to apparent SABRINA (SCr 1.2 from 0.9 yesterday) * Will order vanco trough once at steady-state Cefepime discontinued due to urine culture showing no growth and no other clear indication. Will continue to follow cultures to make a better determination between infection and contamination (i.e. Staph epidermidis) Pharmacy will continue to follow and will adjust dose/frequency as necessary. Thank you.
--- NOTE | 2018-08-22 19:38 | Hospitalist Progress Note ---
Date of Service August 22, 2018 Assessment & Plan (1) Change in mental status: Patient is a 63 year old female presenting to the ED via EMS for weakness on 08/21/18 at baseline patient's has history of Parkinson, possibly some form of Parkinson dementia treated for possible metabolic encelopathy to infection by empirically started on cefepime on admission urine culture no growth however 1 of 2 admission blood culture with gram positive cocci blood cultures repeated on 08/22/17. cefepime stopped and vancomycin started PT/OT evaluation ordered Hyponatremia has resolved after IV fluids on this admission (2) Coronary atherosclerosis of [place] coronary vessel: Troponin negative. No acute EKG changes. Continue home aspirin and metoprolol (3) Diastolic CHF: Compensated. (4) Hypertension: was treated for hypertension and nocturnalist gave enalprilat however when off IV fluids, blood pressures have been noted to be low repeat recent blood pressure 120/73 continue isosorbide monoitrate (5) Asthma: Pulmonary status stable. (6) Diabetes mellitus type 2 with complications: Type 2 diabetes Mellitus on custodial current use of insulin HbA1c 8.6 which is elevated compared to previous admission HbA1c Lantus 20 units BID starting on 08/22/18 evening sliding scale aspart as needed (7) Parkinson disease: Continue carbidopa/levodopa. (8) Do not resuscitate status: Code status is DNR per ED physician's discussion with patient's sister/ POA. (9) DVT prophylaxis: SQ enoxaparin. (10) Discharge planning issues: To be determined. Internal Medicine follow-up with Dr. Ramirez. Subjective Patient seen and examined several times today she is slow in speech and sometimes need prompting to respond. 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 denies other symptoms but does not elaborate in detail as per her usual baseline Physical Exam 2 Vital Signs (Past 24 Hours): Last Vital Signs Temp 36.8 C 08/22/18 16:17 Pulse 60 08/22/18 16:17 Resp 18 08/22/18 16:17 BP 88/50 L 08/22/18 16:17 Pulse Ox 98 08/22/18 16:17 Constitutional: well developed (blood pressure actually is 120/73) Eyes: PERRL, conjunctivae normal, anicteric sclerae EOM intact bilaterally ENMT: external ear and nose normal, oropharynx normal Respiratory: normal respiratory effort, lungs clear to auscultation Cardiovascular: RRR, no murmur, no edema Gastrointestinal (Abdomen): normal bowel sounds, soft, nontender, no hepatosplenomegaly Musculoskeletal: Head/Neck/Chest: normocephalic and head atraumatic Neurologic: PERRL, EOMI, accommodation nl, no face palsy, no dysarthria Psychiatric: Orientation: alert _ (1) Change in mental status Altered mental status type: unspecified Coma depth: Coma timing: Qualified Code(s): R41.82 - Altered mental status, unspecified
[2018-08-22] MEDS: INSULIN GLARGINE SOLOSTAR 100 UNITS/ML 3 ML PEN SC SCH (20:28)
[2018-08-22] MEDS: CLOPIDOGREL BISULFATE 75 MG TAB PO SCH (20:29)
[2018-08-22] MEDS: CLOBETASOL PROPIONATE 0.05% OINT 15 GM TUBE EXT SCH (20:33)
[2018-08-23 07:29] LABS: Hematocrit (blood only) 38.2 % (37-47); Hemoglobin 12.7 g/dL (12.0-16.0); Mean Corpuscular Hgb Conc 33.2 g/dL (32-36); Mean Corpuscular Volume 85.8 fL (80-100); Mean Platelet Volume 10.4 fL (7.4-10.4); Platelet Count 163 K/uL (130-400); RDW Coefficient of Variation 13.4 % (11.5-14.5); RDW Standard Deviation 41.7 fL (36.4-46.3); Red Blood Count 4.45 M/uL (4.2-5.4); White Blood Count 11.04 K/uL (4.8-10.8)
[2018-08-23 08:00] LABS: Albumin Level 2.9 gm/dl (3.4-5.0); BUN Creatinine Ratio 23.7 (10-20); Calcium 8.7 mg/dl (8.5-10.1); Creatinine Clr Calc Pharmacy 54.1 ml/min; Est GFR (African American) 68.5; Est GFR (Non-African American) 59.1; Potassium 3.4 mmol/L (3.5-5.1)
[2018-08-23 08:03] LABS: Albumin Globulin Ratio 0.7 (0.9-2); Bilirubin,Total 0.5 mg/dl (0.2-1); Globulin 4.4 gm/dl (2.5-4.0); Total Protein 7.3 gm/dl (6.4-8.2)
[2018-08-23 08:37] LABS: Basophils # (auto) 0.02 K/uL (0-0.2); Basophils % (auto) 0.2 %; Eosinophils # (auto) 0.06 K/uL (0-0.5); Eosinophils % (auto) 0.5 %; Immature Granulocytes # (auto) 0.02 K/uL (0.00-0.02); Immature Granulocytes % (auto) 0.2 %; Lymphocytes # (auto) 5.08 K/uL (1.2-3.4); Monocytes # (auto) 0.74 K/uL (0.11-0.59); Monocytes % (auto) 6.7 %; Neutrophils # (auto) 5.12 K/uL (1.4-6.5); Neutrophils % (auto) 46.4 %; Smudge Cells Present
[2018-08-23] MEDS: INSULIN ASPART 100 UNITS/ML 3 ML PEN SC SCH ×4 (09:20→20:05)
[2018-08-23] MEDS: INSULIN GLARGINE SOLOSTAR 100 UNITS/ML 3 ML PEN SC SCH ×2 (09:21→20:07)
[2018-08-23] MEDS: DOCUSATE SODIUM 100 MG CAP PO SCH ×2 (09:23→20:08)
[2018-08-23] MEDS: BISACODYL 5 MG TABEC PO SCH (09:23)
[2018-08-23] MEDS: ASPIRIN 81 MG ECTAB PO SCH (09:24)
[2018-08-23] MEDS: TAMSULOSIN HCL 0.4 MG CAP PO SCH (09:24)
[2018-08-23] MEDS: ISOSORBIDE MONO EXTENDED REL 30 MG TABCR PO SCH (09:25)
[2018-08-23] MEDS: ESCITALOPRAM OXALATE 10 MG TAB PO SCH (09:25)
[2018-08-23] MEDS: ATORVASTATIN 40 MG TAB PO SCH (09:29)
[2018-08-23] MEDS: ENOXAPARIN INJ 40 MG/0.4 ML SYR SQ SCH (09:30)
[2018-08-23] MEDS: POLYETHYLENE (MIRALAX) 17 GM PACK PO SCH ×2 (09:32→20:06)
[2018-08-23] MEDS: DOCUSATE SODIUM/SENNA 50/8.6MG TAB PO SCH (09:33)
[2018-08-23] MEDS: CARBIDOPA/LEVODOPA 25/100MG EXT REL TAB PO SCH ×3 (09:33→20:04)
[2018-08-23] MEDS: PANTOprazole 40 MG TAB PO SCH (09:33)
[2018-08-23] MEDS ORDERED: POTASSIUM CHLORIDE 10 MEQ TABCR PO STA (09:34)
[2018-08-23] MEDS: CETIRIZINE HCL 10 MG TABLET PO SCH (09:34)
[2018-08-23] MEDS: METOPROLOL SUCC 50MG EXT REL TAB PO SCH ×2 (09:34→20:04)
[2018-08-23] MEDS: VANCOMYCIN HCL 1,000 MG in SODIUM CHLORIDE 0.9% 250 ML IV SCH (12:14)
--- NOTE | 2018-08-23 17:14 | Hospitalist Progress Note ---
Date of Service August 23, 2018 Assessment & Plan (1) Change in mental status: Patient is a 63 year old female presenting to the ED via EMS for weakness on 08/21/18 at baseline patient's has history of Parkinson, possibly some form of Parkinson dementia treated for possible metabolic encelopathy to infection by empirically started on cefepime on admission urine culture no growth however 1 of 2 admission blood culture with gram positive cocci blood cultures repeated on 08/22/17. cefepime stopped and vancomycin started 08/23/18 still awaiting recent blood culture results, continue vancomycin for now Hyponatremia has resolved after IV fluids on this admission mild hypokalemia with serum potassium 3.4 - give oral potassium (2) Coronary atherosclerosis of [place] coronary vessel: Troponin negative. No acute EKG changes. Continue home aspirin and metoprolol (3) Diastolic CHF: Compensated Has pacemaker (4) Hypertension: have noted to have have katelyn blood pressure generally at night start amlodipine 5 mg qhs continue home dose isosorbide monitrate during the day (5) Asthma: Pulmonary status stable. 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 PT/OT evaluations (8) Do not resuscitate status: Code status is DNR per ED physician's discussion with patient's sister/ POA. Patient's sister phone number [phone] (9) DVT prophylaxis: SQ enoxaparin. (10) Discharge planning issues: To be determined. Internal Medicine follow-up with Dr. Ramirez. Subjective Patient seen and examined earlier today and again with her family members including her sister ([phone]) As per family member, patient seems to be a mental baseline Patient denies shortness of breath or pain. denies vomiting. Physical Exam 2 Vital Signs (Past 24 Hours): Last Vital Signs Temp 36.6 C 08/23/18 07:00 Pulse 60 08/23/18 09:52 Resp 18 08/23/18 07:00 BP 108/59 L 08/23/18 09:52 Pulse Ox 96 08/23/18 07:00 Constitutional: well developed (blood pressure actually is 120/73) Eyes: PERRL, conjunctivae normal, anicteric sclerae EOM intact bilaterally ENMT: external ear and nose normal, oropharynx normal Respiratory: normal respiratory effort, lungs clear to auscultation Cardiovascular: RRR, no murmur, no edema Gastrointestinal (Abdomen): normal bowel sounds, soft, nontender, no hepatosplenomegaly Musculoskeletal: Head/Neck/Chest: normocephalic and head atraumatic Neurologic: PERRL, EOMI, accommodation nl, no face palsy, no dysarthria Psychiatric: Orientation: alert _ (1) Change in mental status Altered mental status type: unspecified Coma depth: Coma timing: Qualified Code(s): R41.82 - Altered mental status, unspecified
[2018-08-23] MEDS: IPRATROPIUM BROMIDE NASAL SPRAY 0.06% 15ML SCH ×2 (17:28→20:03)
[2018-08-23] MEDS: CLOPIDOGREL BISULFATE 75 MG TAB PO SCH (20:04)
[2018-08-23] MEDS: CLOBETASOL PROPIONATE 0.05% OINT 15 GM TUBE EXT SCH (20:06)
[2018-08-23] MEDS ORDERED: AMLODIPINE BESYLATE 5 MG TAB PO SCH (21:00)
[2018-08-23 21:48] VITALS: PULSE 60
[2018-08-24] MEDS: VANCOMYCIN HCL 1,000 MG in SODIUM CHLORIDE 0.9% 250 ML IV SCH (04:51)
[2018-08-24] MEDS: ASPIRIN 81 MG ECTAB PO SCH ×2 (07:17→07:25)
[2018-08-24] MEDS: TAMSULOSIN HCL 0.4 MG CAP PO SCH (07:17)
[2018-08-24] MEDS: PANTOprazole 40 MG TAB PO SCH (07:18)
[2018-08-24] MEDS: METOPROLOL SUCC 50MG EXT REL TAB PO SCH (07:18)
[2018-08-24] MEDS: CETIRIZINE HCL 10 MG TABLET PO SCH (07:19)
[2018-08-24] MEDS: ESCITALOPRAM OXALATE 10 MG TAB PO SCH (07:19)
[2018-08-24] MEDS: ATORVASTATIN 40 MG TAB PO SCH (07:19)
[2018-08-24] MEDS: CARBIDOPA/LEVODOPA 25/100MG EXT REL TAB PO SCH ×2 (07:19→12:41)
[2018-08-24] MEDS: ISOSORBIDE MONO EXTENDED REL 30 MG TABCR PO SCH (07:20)
[2018-08-24] MEDS: ENOXAPARIN INJ 40 MG/0.4 ML SYR SQ SCH (07:23)
[2018-08-24 07:26] VITALS: TEMP 98.1; O2SAT 99
[2018-08-24] MEDS: IPRATROPIUM BROMIDE NASAL SPRAY 0.06% 15ML SCH (07:26)
[2018-08-24] MEDS: BISACODYL 5 MG TABEC PO SCH (07:43)
[2018-08-24] MEDS: DOCUSATE SODIUM 100 MG CAP PO SCH (07:43)
[2018-08-24] MEDS: POLYETHYLENE (MIRALAX) 17 GM PACK PO SCH (07:43)
[2018-08-24 08:23] LABS: Creatinine Clr Calc Pharmacy 61.4 ml/min; Est GFR (African American) 78.8
[2018-08-24 09:12] LABS: Basophils # (auto) 0.01 K/uL (0-0.2); Basophils % (auto) 0.1 %; Eosinophils # (auto) 0.07 K/uL (0-0.5); Eosinophils % (auto) 0.8 %; Hematocrit (blood only) 33.9 % (37-47); Immature Granulocytes # (auto) 0.02 K/uL (0.00-0.02); Immature Granulocytes % (auto) 0.2 %; Lymphocytes # (auto) 4.27 K/uL (1.2-3.4); Lymphocytes % (auto) 47.7 %; Mean Corpuscular Volume 86.7 fL (80-100); Mean Platelet Volume 10.2 fL (7.4-10.4); Monocytes # (auto) 0.57 K/uL (0.11-0.59); Monocytes % (auto) 6.4 %; Neutrophils # (auto) 4.02 K/uL (1.4-6.5); Neutrophils % (auto) 44.8 %; Platelet Count 177 K/uL (130-400); RDW Coefficient of Variation 13.4 % (11.5-14.5); RDW Standard Deviation 42.6 fL (36.4-46.3); Red Blood Count 3.91 M/uL (4.2-5.4); White Blood Count 8.96 K/uL (4.8-10.8)
[2018-08-24 09:15] LABS: Mean Corpuscular Hgb Conc 32.4 g/dL (32-36)
[2018-08-24] MEDS: DOCUSATE SODIUM/SENNA 50/8.6MG TAB PO SCH (09:27)
[2018-08-24] MEDS: INSULIN ASPART 100 UNITS/ML 3 ML PEN SC SCH ×2 (09:34→12:35)
[2018-08-24] MEDS: INSULIN GLARGINE SOLOSTAR 100 UNITS/ML 3 ML PEN SC SCH (09:35)
--- NOTE | 2018-08-24 14:18 | Hospitalist Progress Note ---
Date of Service August 24, 2018 Assessment & Plan (1) Change in mental status: Patient is a 63 year old female presenting to the ED via EMS for weakness on 08/21/18 at baseline patient's has history of Parkinson, possibly some form of Parkinson dementia treated for possible metabolic encelopathy to infection by empirically started on cefepime on admission urine culture no growth however 1 of 2 admission blood culture with gram positive cocci blood cultures repeated on 08/22/17. cefepime stopped and vancomycin started 08/23/18 still awaiting recent blood culture results, continue vancomycin 08/24/18: the blood culture from 08/21/18 is likely contaminant as the 1 or 2 blood culture of gram positive cocci speciated as Coag neg staph not lugdunensis the blood cultures from 08/22/18 remains no growth to date Vancomycin stopped and discharge plans being made Hyponatremia has resolved after IV fluids on this admission mild hypokalemia with serum potassium 3.4 on this admission and patient had received oral potassium (2) Coronary atherosclerosis of [place] coronary vessel: Troponin negative. No acute EKG changes. Continue home aspirin and metoprolol (3) Diastolic CHF: Compensated Has pacemaker (4) Hypertension: have noted to have have high blood pressure generally at night started amlodipine 5 mg qhs and to be prescribed on discharge continue home dose isosorbide monitrate during the day (5) Asthma: Pulmonary status stable. (6) Diabetes mellitus type 2 with complications: Type 2 diabetes Mellitus on custodial current use of insulin HbA1c 8.6 which is elevated compared to previous admission HbA1c continue home dose insulin but patient should discuss with primary care doctor on further diabetic management (7) Parkinson disease: Continue carbidopa/levodopa. PT/OT evaluations completed (8) Do not resuscitate status: Code status is DNR per ED physician's discussion with patient's sister/ POA. Patient's sister phone number [phone] (9) DVT prophylaxis: SQ enoxaparin while inpatient (10) Discharge planning issues: Main Discharge Diagnosis Altered Mental Status, Parkinson's disease, Type 2 diabetes mellitus with unspecified complications (on remote computer terminal operator insulin but HbA1c is more elevated than in the past), Hypertension, Presence of Pacemaker, Bacteremia is ruled out Discharge Instructions 09/01/2018 3:00 PM Provider Reginaldo Ramirez DO Department General Internal Medicine [facility] Type 2 diabetes Mellitus on remote computer terminal operator current use of insulin HbA1c 8.6 which is elevated compared to previous admission HbA1c continue home dose insulin but patient should discuss with primary care doctor on further diabetic management amlodipine 5 mg to be taken nightly, prescription electronically transmitted to [facility] pharmacy in [facility] 09/04/2018 11:30 AM Provider [facility] Department Cardiology, [facility] Subjective Patient seen and examined earlier today and at mental baseline Patient denies shortness of breath or pain. denies vomiting. she has eaten her meals. her blood pressure has been controlled the blood culture from 08/21/18 is likely contaminant as the 1 or 2 blood culture of gram positive cocci speciated as Coag neg staph not lugdunensis the blood cultures from 08/22/18 remains no growth to date Vancomycin stopped and discharge plans being made Physical Exam 2 Vital Signs (Past 24 Hours): Last Vital Signs Temp 36.7 C 08/24/18 07:25 Pulse 60 08/24/18 07:25 Resp 18 08/24/18 07:25 BP 124/78 08/24/18 07:25 Pulse Ox 99 08/24/18 07:25 Constitutional: WD/WN, vitals as above Eyes: PERRL, conjunctivae normal, anicteric sclerae EOM intact bilaterally ENMT: external ear and nose normal, oropharynx normal Respiratory: normal respiratory effort, lungs clear to auscultation Cardiovascular: RRR, no murmur, no edema Gastrointestinal (Abdomen): normal bowel sounds, soft, nontender, no hepatosplenomegaly Musculoskeletal: Head/Neck/Chest: normocephalic and head atraumatic Neurologic: PERRL, EOMI, accommodation nl, no face palsy, no dysarthria Psychiatric: Orientation: alert _ (1) Change in mental status Altered mental status type: unspecified Coma depth: Coma timing: Qualified Code(s): R41.82 - Altered mental status, unspecified
--- NOTE | 2018-08-24 14:25 | Discharge Summary ---
Date of Service August 24, 2018 Admission HPI Per Admitting Provider 63 YO female followed by Dr. Ramirez. History of ischemic heart disease, hypertension, diabetes mellitus, Parkinson's disease, and other problems as noted. Brought to ED 08/19/18 with confusion and vomiting. No fever or other symptoms. ED evaluation was negative. No evidence of UTI or other acute process. Patient was discharged to home. Returned to ED today for further evaluation. Patient unable to provide any information. Caregiver informed ED physician that she has been somnolent and very weak. Not eating, drinking, or taking oral meds. No reported fever, cough. Admission Exam Per Admitting Provider Constitutional: no acute distress Eyes: PERRL, conjunctivae normal, anicteric sclerae ENMT: Mouth: + gingival abnormality (lower) and + dentures (upper) Neck: trachea midline, no thyromegaly Respiratory: normal respiratory effort, lungs clear to auscultation Cardiovascular: Rate/Rhythm: regular rate and regular rhythm Heart Sounds: + murmur (II/ sys murmur heard at LSB + apex); no gallop Extremities: normal capillary refill (1-2 seconds) Chest (Breasts): Chest: + pacemaker Gastrointestinal (Abdomen): Inspection/Auscultation: normal bowel sounds; abdomen not distended Percussion/Palpation: abdomen soft; abdomen nontender Skin: no rashes, warm and dry healed sternal scar Neurologic: somnolent, arousable; PERRL, EOMI; masked facies; moderate cogwheel rigidity upper extremities; diffuse mild-moderate motor weakness; patellar DTR's 1/2 bilat; plantar reflexes equivocal bilat Psychiatric: Orientation: + not oriented x 3 Lymphatic: no cervical lymphadenopathy Principal Diagnosis Altered Mental Status, Parkinson's disease, Type 2 diabetes mellitus with unspecified complications (on longterm insulin but HbA1c is more elevated than in the past), Hypertension, Presence of Pacemaker, Bacteremia is ruled out Discharge Exam Constitutional WD/WN, vitals as above Eyes PERRL, conjunctivae normal, anicteric sclerae EOM intact bilaterally ENMT external ear and nose normal, oropharynx normal Respiratory normal respiratory effort, lungs clear to auscultation Cardiovascular RRR, no murmur, no edema Gastrointestinal (Abdomen) normal bowel sounds, soft, nontender, no hepatosplenomegaly Musculoskeletal Head/Neck/Chest: normocephalic and head atraumatic Neurologic PERRL, EOMI, accommodation nl, no face palsy, no dysarthria Psychiatric Orientation: alert Discharge Data Allergies Allergy/AdvReac Type Severity Reaction Status Date / Time bee venom protein (honey bee) Allergy Severe SWELLING Verified 05/30/18 11:17 lidocaine Allergy Severe ANAPHYLAXIS Verified 05/30/18 11:17 morphine Allergy Mild itching Verified 05/30/18 11:17 tramadol Allergy Mild ITCHING Verified 05/30/18 11:17 trazodone Allergy Mild ITCHING Verified 05/30/18 11:17 Consultations 08/21/18 17:21 ED Decision to Admit Stat Ordered Studies 08/21/18 14:44 CT head/brain wo con Stat Hospital Course (1) Change in mental status: Patient is a 63 year old female presenting to the ED via EMS for weakness on 08/21/18 at baseline patient's has history of Parkinson, possibly some form of Parkinson dementia treated for possible metabolic encelopathy to infection by empirically started on cefepime on admission urine culture no growth however 1 of 2 admission blood culture with gram positive cocci blood cultures repeated on 08/22/17. cefepime stopped and vancomycin started 08/23/18 still awaiting recent blood culture results, continue vancomycin 08/24/18: the blood culture from 08/21/18 is likely contaminant as the 1 or 2 blood culture of gram positive cocci speciated as Coag neg staph not lugdunensis the blood cultures from 08/22/18 remains no growth to date Vancomycin stopped and discharge plans being made Hyponatremia has resolved after IV fluids on this admission mild hypokalemia with serum potassium 3.4 on this admission and patient had received oral potassium (2) Coronary atherosclerosis of [place] coronary vessel: Troponin negative. No acute EKG changes. Continue home aspirin and metoprolol (3) Diastolic CHF: Compensated Has pacemaker (4) Hypertension: have noted to have have high blood pressure generally at night started amlodipine 5 mg qhs and to be prescribed on discharge continue home dose isosorbide monitrate during the day (5) Asthma: Pulmonary status stable. (6) Diabetes mellitus type 2 with complications: Type 2 diabetes Mellitus on superintendent terminal current use of insulin HbA1c 8.6 which is elevated compared to previous admission HbA1c continue home dose insulin but patient should discuss with primary care doctor on further diabetic management (7) Parkinson disease: Continue carbidopa/levodopa. PT/OT evaluations completed (8) Do not resuscitate status: Code status is DNR per ED physician's discussion with patient's sister/ POA. Patient's sister phone number [phone] (9) DVT prophylaxis: SQ enoxaparin while inpatient (10) Discharge planning issues: Main Discharge Diagnosis Altered Mental Status, Parkinson's disease, Type 2 diabetes mellitus with unspecified complications (on superintendent terminal insulin but HbA1c is more elevated than in the past), Hypertension, Presence of Pacemaker, Bacteremia is ruled out Discharge Instructions 09/01/2018 3:00 PM Provider Reginaldo Ramirez DO Department General Internal Medicine [facility] Type 2 diabetes Mellitus on longterm current use of insulin HbA1c 8.6 which is elevated compared to previous admission HbA1c continue home dose insulin but patient should discuss with primary care doctor on further diabetic management amlodipine 5 mg to be taken nightly, prescription electronically transmitted to [facility] pharmacy in [facility] 09/04/2018 11:30 AM Provider Pacetere Christie [facility] Department Cardiology, [facility] Total Time Total Time Spent Total Time Spent (In Minutes): 40 minutes Total Time Includes: Examination of the Patient, Discharge Planning and Medication Reconciliation Discharge Plan Discharge Items Patient Disposition: Home - Home Health Services Reason For Visit: ALTERED MENTAL STATUS Discharge Diagnosis: Altered Mental Status, Parkinson's disease, Type 2 diabetes mellitus with unspecified complications (on superintendent terminal insulin but HbA1c is more elevated than in the past), Hypertension, Presence of Pacemaker, Bacteremia is ruled out Condition: Good Discharge Goals: Improve function Activity: Resume your previous activity Non-emergency contact: Primary Care Provider Call non-emergency contact if: you have any medication questions Diet: Carb Consistent or DM2 Addtl Provider Instructions: Discharge Instructions 09/01/2018 3:00 PM Provider Reginaldo Ramirez DO Department General Internal Medicine [facility] Type 2 diabetes Mellitus on longterm current use of insulin HbA1c 8.6 which is elevated compared to previous admission HbA1c continue home dose insulin but patient should discuss with primary care doctor on further diabetic management amlodipine 5 mg to be taken nightly, prescription electronically transmitted to [facility] pharmacy in [facility] 09/04/2018 11:30 AM Provider Pacer Pratik [facility] Department Cardiology, [facility] Prescriptions: New amlodipine [Norvasc] 5 mg Tablet 5 mg PO HS 30 Days Qty: 30 RF: 0 Continue bisacodyl 5 mg Tablet 5 mg PO QAM RF: 0 cetirizine 10 mg Tablet 10 mg PO DAILY RF: 0 aspirin 81 mg Tablet,Delayed Release (Dr/Ec) 81 mg PO DAILY RF: 0 polyethylene glycol 3350 [Miralax] 17 gram/dose Powder 17 g PO BID RF: 0 metoprolol succinate 50 mg tablet extended release 24 hr 50 mg PO Q12H RF: 0 albuterol sulfate [Ventolin HFA] 90 mcg/actuation HFA aerosol inhaler 2 puff Inhalation Q4H PRN (Reason: Wheezing) RF: 0 sennosides-docusate sodium [Senokot-S] 8.6-50 mg tablet 1 tab PO QAM RF: 0 insulin glargine [Lantus U-100 Insulin] 100 unit/mL solution 20 units subcut BID RF: 0 insulin aspart U-100 [Novolog Flexpen U-100 Insulin] 100 unit/mL insulin pen 8 units subcut ACHS RF: 0 menthol-zinc oxide 0.44-20.6 % Ointment 1 applic TOPICAL Q8H PRN (Reason: Rectal Pain) RF: 0 atorvastatin 40 mg tablet 40 mg PO QAM RF: 0 ketoconazole 2 % shampoo 1 applic Topical DAILY RF: 0 carbidopa-levodopa 25-100 mg tablet extended release 1 tab PO TID RF: 0 isosorbide mononitrate 30 mg tablet extended release 24 hr 90 mg PO QAM RF: 0 clopidogrel 75 mg tablet 75 mg PO HS RF: 0 ciclopirox 8 % Solution 1 applic TOPICAL HS RF: 0 metronidazole 0.75 % cream 1 applic Topical DAILY RF: 0 docusate sodium [Colace] 100 mg Capsule 100 mg PO BID RF: 0 magnesium citrate Solution 120 ml PO DAILY PRN (Reason: Severe Constipation) RF: 0 clobetasol 0.05 % Ointment 1 applic TOPICAL HS RF: 0 ipratropium bromide 0.03 % [place],Non-Aerosol 2 spray Intranasal BID RF: 0 escitalopram oxalate 10 mg tablet 15 mg PO QAM RF: 0 diclofenac sodium 1 % gel 4 g Topical QID RF: 0 tamsulosin 0.4 mg capsule 0.4 mg PO QAM RF: 0 pantoprazole 40 mg tablet,delayed release (DR/EC) 40 mg PO QAM RF: 0 nitroglycerin 0.4 mg tablet, sublingual 0.4 mg Sublingual DIRECTED PRN (Reason: Chest Pain) RF: 0 ondansetron 4 mg tablet,disintegrating 4 mg Translingual Q8H PRN (Reason: Nausea) RF: 0 Stand-Alone Forms: [facility] Discharge Orders: Discharge Order (Routine); Ordered 08/24/18 Ordered By: Everett Garvey Admission Data Admit Date/Time: 08/21/18 18:07 Attending Provider: Everett Garvey Admit Provider: Ananth Soni Primary Care Provider: Reginaldo Ramirez Other Providers: Ananth Soni Service: Medical
[2018-08-24 14:45] VITALS: BP 139/84
[2018-08-24] MEDS ORDERED: VANCOMYCIN TROUGH ONE (21:30)
== END 2018-08-24 15:41 | disposition home health service (06) | DRG 56 ==
LOC: ED 13:56 → 2S 18:07 → 4W 08-22 17:26

== ENCOUNTER 2019-07-10 14:44 | Inpatient (IN) ==
[2019-07-10] MEDS ORDERED: SODIUM CHLORIDE 0.9% 1000ML 1,000 ML IV SCH (15:45)
--- NOTE | 2019-07-10 16:33 | Emergency Department Note ---
Entered by Robert Whitlock acting as a scribe for History of Present Illness General Chief complaint: Hyperglycemia Stated complaint: LOW AND HIGH BLOOD SUGAR Time Seen by Provider: 07/10/19 15:41 Source: patient History of Present Illness Onset (ago): week(s) (few) Severity: moderate (300s) Pain Consistency: + intermittent Quality: + other (elevated blood sugars) Relieved By: + other (insulin) Associated symptoms: + denies other symptoms The patient is a 63 y/o female who presents to the ED w/ CC of intermittent elevated blood sugar in the 300s beginning a few weeks ago. The patient states she is currently being treated for osteomyelitis of her right foot. She reports she is taking Keflex and Bactrim. The patient notes she is to have part of her right foot amputated secondary to the osteomyelitis. She states she takes insulin for her blood sugar. The patient reports she was evaluated by Dr. Thomas and was told to come to the ED to be admitted for surgery. She notes Dr. Thomas told her she needed to have her blood sugars under control for surgery next week. The patient states her PCP is Dr. Ramirez. She denies any other symptoms. Home Medications Home Medications Medication Instructions Recorded Confirmed Type atorvastatin 40 mg PO QAM 04/02/18 07/10/19 History clopidogrel 75 mg PO HS 04/02/18 07/10/19 History docusate sodium [Colace] 100 mg PO BID 04/02/18 07/10/19 History isosorbide mononitrate 90 mg PO QAM 04/02/18 07/10/19 History nitroglycerin 0.4 mg SUBLINGUAL DIRECTED PRN 04/02/18 07/10/19 History ondansetron 4 mg TRANSLINGUAL Q8H PRN 04/02/18 07/10/19 History pantoprazole 40 mg PO DAILY 04/02/18 07/10/19 History aspirin 81 mg PO QAM 05/02/18 07/10/19 History albuterol sulfate 2 puff INHALATION Q4H PRN 08/21/18 07/10/19 History insulin aspart U-100 See Rx Instructions .ROUTE .COMPLEX 08/21/18 02/24/19 History insulin glargine 20 units SUBCUT BID 08/21/18 07/10/19 History metoprolol succinate 50 mg PO Q12H 08/21/18 07/10/19 History sennosides-docusate sodium 2 tab PO BID PRN #30 tab 01/21/19 07/10/19 Rx [Senokot-S] ipratropium bromide 0.03 % nasal 2 sprays INTNAS TID 02/06/19 07/10/19 History spray metronidazole 0.75 % topical cream 1 appln TOPICAL DAILY gm 02/06/19 07/10/19 History multivitamin 1 tab PO QAM 02/06/19 07/10/19 History carbidopa 25 mg-levodopa 100 mg 1 tab PO QID #120 tab 02/26/19 07/10/19 Rx tablet amlodipine 5 mg PO DAILY 07/10/19 07/10/19 History escitalopram oxalate 15 mg PO DAILY 07/10/19 07/10/19 History polyethylene glycol 3350 [Miralax] 17 gm PO DAILY 07/10/19 07/10/19 History Allergies Allergy/AdvReac Type Severity Reaction Status Date / Time bee venom protein (honey bee) Allergy Severe SWELLING Verified 07/10/19 16:54 lidocaine Allergy Severe ANAPHYLAXIS Verified 07/10/19 16:54 morphine Allergy Mild itching Verified 07/10/19 16:54 tramadol Allergy Mild ITCHING Verified 07/10/19 16:54 trazodone Allergy Mild ITCHING Verified 07/10/19 16:54 Past Med/Surg History Medical History Asthma (Chronic) CKD (chronic kidney disease), stage III (Chronic) Constipation (Inactive) Coronary atherosclerosis of [place] coronary vessel (Chronic 08/24/11) s/p CABG (SVG to OM, SVT to OM2, MEHTA to LAD) on 04/05/1998 s/p HEIDY x2 (LM and LAD) in 06/2012" Depression (Chronic) Diabetes mellitus type 2 with complications (Chronic) Diabetic foot ulcer associated with type 2 diabetes mellitus (Acute) Diabetic nephropathy (Chronic) Diabetic retinopathy (Chronic) Diastolic CHF (Chronic) H/O--edema has improved over the past year, no longer on diuretic therapy per cardio 04/16/18 GERD (gastroesophageal reflux disease) (Chronic) Hypertension (Chronic) Obesity, Class II, BMI 35-39.9, with comorbidity (Chronic) Osteoarthritis (Chronic) Parkinson disease (Chronic) Polymyalgia rheumatica (Chronic) Presence of combination internal cardiac defibrillator (ICD) and pacemaker (Chronic) implanted 2012. Hospitalized 02/2018 for ICD discharge--deemed inappropriate due to an atrial tach episode by EP. Device settings were changed including deactivation of her vtach zone and her vfib zone was reduced from 214 bpm to 200 bpm. No additional discharges. Pressure ulcer of coccygeal region, stage 2 Ventricular fibrillation (Chronic) VF arrest x2 s/p ICD placement 2012, preserved LV EF. Surgical History H/O eye surgery (Chronic) H/O: hysterectomy (Chronic) SUZY History of appendectomy (Chronic) History of cholecystectomy (Chronic) S/P implantation of automatic cardioverter/defibrillator (AICD) (Chronic) S/P triple vessel bypass (Chronic) 1997 Family History Mother Heart disease Hypertension Brother Asthma Brother Diabetes Father Diabetes Social History Preferred Language: Polish Communication Ability: conused Visual Impairment: Limited Hearing Ability: Normal Mobile Tester Required: No Beliefs That Will Affect Care: None marital status: Current Living Situation: Family Current Living Situation Comment: 12 hour home care current occupational status: disabled Feels Safe at Home: Yes Smoking Status: Former smoker Second Hand Exposure: No ; Hx Alcohol Use: No Hx Substance Use: No Review of Systems See HPI for pertinent positives & negatives. and A total of 10 systems reviewed and were otherwise negative Physical Exam Vital Signs Vital Signs - 24 hr 07/10/19 14:54 07/10/19 15:58 07/10/19 16:00 Temperature 36.5 C Temperature Source Oral Pulse Rate 71 60 60 Respiratory Rate 20 17 16 Respiratory Effort / Characteristics Non-Labored Spontaneous Respiratory Depth Normal Blood Pressure 110/63 119/47 L 142/67 H Blood Pressure Mean 78 77 89 Blood Pressure Position Sitting Pulse Oximetry 98 Oxygen Delivery Method Room Air Sepsis Recent Fever Within 48 Hours No Sepsis Action Taken by Nursing No Action Required 07/10/19 16:01 Temperature Temperature Source Pulse Rate 60 Respiratory Rate 16 Respiratory Effort / Characteristics Respiratory Depth Blood Pressure Blood Pressure Mean Blood Pressure Position Pulse Oximetry Oxygen Delivery Method Sepsis Recent Fever Within 48 Hours Sepsis Action Taken by Nursing GENERAL: Patient is awake alert in no acute distress patient is resting comfort ably and showing no signs of anxiety EYES: The conjunctivae are clear. The pupils are round and reactive. EARS, NOSE, MOUTH AND THROAT: The nose is without any evidence of any deformity. Mucous membranes are moist. Tongue is midline. NECK: The neck is nontender and supple. RESPIRATORY: Normal respiratory effort is noted there is no evidence of wheezing rhonchi or rales CARDIOVASCULAR: Regular rate and rhythm noted there no murmurs rubs or gallops normal S1 normal S2. GASTROINTESTINAL: The abdomen is soft. Abdomen is nontender. MUSCULOSKELETAL/EXTREMITIES: There is no evidence of gross deformity full range of motion is noted in the hips and shoulders. SKIN: There is a wound dressing as well as a postop shoe on the right foot. This was evaluated by orthopedics prior to arrival. NEUROLOGIC: Patient is awake alert and oriented x3. Course Course 1622: Past medical records reviewed. The patient was evaluated in room B11A. A complete history and physical exam was performed. I discussed laboratory and radiographic results with the patient. She verbalized agreement of the treatment plan. The patient will be evaluated for further management and care. 1634: I reviewed the patient's case with PRITESH Sutherland, [facility], attending Dr. Stephenson. She will evaluate the patient for further man agement. Administered Medications Discontinued Medications Sodium Chloride (Nss 1000ml) 1,000 mls @ 999 mls/hr IV .Q1H1M YANG Stop: 07/10/19 16:45 Last Admin: 07/10/19 17:03 Dose: 999 mls/hr Documented by: [id number] Medical Decision Making Differential Diagnosis Differential Diagnosis includes but is not limited to dehydration, stroke, a nemia, hypoglycemia, hyponatremia, hypernatremia, urinary tract infection, pneumonia, bronchitis, sepsis, gastroenteritis, additional abdominal pathology, metabolic abnormalities and infections. Medical Records Attestation: I reviewed the patient's medical records. Home Medications Current Medication List: was personally reviewed by me Laboratory Data Attestation: I reviewed the patient's lab results. Result diagrams: 07/10/19 17:05 07/10/19 17:05 Lab Results 07/10/19 07/10/19 Range/Units 15:00 17:05 WBC 9.94 (4.8-10.8) K/uL RBC 4.10 L (4.2-5.4) M/uL Hgb 12.0 (12.0-16.0) g/dL Hct 36.5 L (37-47) % MCV 89.0 (80-100) fL MCH 29.3 (25-34) pg MCHC 32.9 (32-36) g/dL RDW Std Deviation 40.1 (36.4-46.3) fL RDW Coeff of [place] 12.5 (11.5-14.5) % Plt Count 268 (130-400) K/uL MPV 10.4 (7.4-10.4) fL Immature Gran % (Auto) 0.3 % Neut % (Auto) 50.2 % Lymph % (Auto) 42.3 % Cross % (Auto) 6.2 % Eos % (Auto) 0.8 % Baso % (Auto) 0.2 % Immature Gran # (Auto) 0.03 H (0.00-0.02) K/uL Neut # (Auto) 4.99 (1.4-6.5) K/uL Lymph # (Auto) 4.20 H (1.2-3.4) K/uL Cross # (Auto) 0.62 H (0.11-0.59) K/uL Eos # (Auto) 0.08 (0-0.5) K/uL Baso # (Auto) 0.02 (0-0.2) K/uL POC Glucose 352 H* (70-99) Imaging Data Radiologist's Impression: Radiology results as stated below per my review and the radiologist's interpretation: SINGLE VIEW CHEST CLINICAL HISTORY: Generalized weakness. FINDINGS: An AP, portable, upright chest radiograph is compared to study dated 06/28/2019. The examination is degraded by portable technique and patient rotation. A 2-lead cardiac AICD is unchanged in position and largely obscures the left mid chest. The patient is status post midline sternotomy. The heart is mildly enlarged noting atherosclerotic calcification of the thoracic aorta. The pulmonary vasculature is noncongested. The lungs and pleural spaces are clear. No pneumothorax is seen. The skeletal structures are osteopenic. The bony thorax is grossly intact. Cholecystectomy clips project over the right upper quadrant. IMPRESSION: 1. Cardiomegaly and AICD. There is no radiographic evidence of congestive failure. 2. No airspace consolidation or pleural effusion is identified ACT 112: Negative or not required by law. Electronically signed by: Diego Ricardo M.D. 07/10/2019 4:38 PM ECG Data Attestation: I personally reviewed and interpreted this ECG as follows: Indication: + other (hyperglycemia) Rate (beats per minute): 61 Rhythm: + other (atrial paced) ECG ST segments: no ST depression and no ST elevation ECG Findings: no PACs and no PVCs Comparison ECG Date: from (02/24/19) Change: the following changes noted Additional Comments: Paced rhythm has replaced the normal sinus rhythm. Blood Pressure Blood Pressure Findings: Elevated blood pressure Blood Pressure Disposition: further management by hospitalist MDM Narrative The patient is a 63-year-old female who presented to the emergency department because of uncontrolled blood sugars. The patient has a right foot infection. She is currently being treated for osteomyelitis with outpatient antibiotics. She was seen at her primary orthopedic physician this morning. She was sent to the emergency department because of abnormal blood sugars. It sounds though the patient is scheduled for surgical intervention on her right foot. There was medical concern that the patient would not be able to have the surgery because of her abnormal blood sugars. For this reason she was sent to the emergency de partment for medical admission for better blood sugar control and better medical clearance prior to the amputation to treat the osteomyelitis. I discussed the patient's condition with the on-call [facility] hospitalist group. They have agreed to evaluate the patient in the emergency department for further management and disposition. Impression & Plan Osteomyelitis, Hyperglycemia Discharge Plan Visit Data Chief Complaint: Hyperglycemia Stated Complaint: LOW AND HIGH BLOOD SUGAR Other Complaint: Hypoglycemia ED Provider: Tiago Jacques Discharge Problem: Osteomyelitis, Hyperglycemia Patient Disposition: Being Evaluated by Hospitalist Forms Stand Alone Forms: My [facility] [place] Prescriptions Prescriptions: No Action carbidopa-levodopa 25-100 mg tablet 1 tab PO QID Qty: 120 RF: 5 multivitamin tablet 1 tab PO QAM RF: 0 metronidazole 0.75 % cream 1 appln topical DAILY RF: 0 ipratropium bromide 0.03 % spray,non-aerosol 2 sprays INTNAS TID RF: 0 aspirin 81 mg Tablet,Delayed Release (Dr/Ec) 81 mg PO QAM RF: 0 metoprolol succinate 50 mg tablet extended release 24 hr 50 mg PO Q12H RF: 0 albuterol sulfate 90 mcg/actuation HFA aerosol inhaler 2 puff Inhalation Q4H PRN (Reason: Wheezing) RF: 0 insulin glargine 100 unit/mL solution 20 units subcut BID RF: 0 insulin aspart U-100 100 unit/mL insulin pen See Rx Instructions .ROUTE .COMPLEX RF: 0 polyethylene glycol 3350 [Miralax] 17 gram powder in packet 17 gm PO DAILY RF: 0 amlodipine 5 mg tablet 5 mg PO DAILY RF: 0 escitalopram oxalate 10 mg tablet 15 mg PO DAILY RF: 0 atorvastatin 40 mg tablet 40 mg PO QAM RF: 0 isosorbide mononitrate 30 mg tablet extended release 24 hr 90 mg PO QAM RF: 0 clopidogrel 75 mg tablet 75 mg PO HS RF: 0 docusate sodium [Colace] 100 mg Capsule 100 mg PO BID RF: 0 pantoprazole 40 mg tablet,delayed release (DR/EC) 40 mg PO DAILY RF: 0 nitroglycerin 0.4 mg tablet, sublingual 0.4 mg Sublingual DIRECTED PRN (Reason: Chest Pain) RF: 0 ondansetron 4 mg tablet,disintegrating 4 mg Translingual Q8H PRN (Reason: Nausea) RF: 0 sennosides-docusate sodium [Senokot-S] 8.6-50 mg tablet 2 tab PO BID PRN (Reason: constipation) Qty: 30 RF: 3 Referrals Referrals: Reginaldo Ramirez DO [Primary Care Provider] - Discharge Problem: Osteomyelitis Qualifiers: Osteomyelitis type: unspecified type Osteomyelitis location: foot Laterality: right Qualified Code(s): M86.9 - Osteomyelitis, unspecified The scribe's documentation has been prepared under my direction and personally reviewed by me in its entirety. I confirm that the note above accurately reflects all work, treatment, procedures, and medical decision making performed by me.
--- NOTE | 2019-07-10 16:39 | XRay Report ---
SINGLE VIEW CHEST CLINICAL HISTORY: Generalized weakness. FINDINGS: An AP, portable, upright chest radiograph is compared to study dated 06/28/2019. The examin ation is degraded by portable technique and patient rotation. A 2-lead cardiac AICD is unchanged in p osition and largely obscures the left mid chest. The patient is status post midline sternotomy. The h eart is mildly enlarged noting atherosclerotic calcification of the thoracic aorta. The pulmonary vas culature is noncongested. The lungs and pleural spaces are clear. No pneumothorax is seen. The skelet al structures are osteopenic. The bony thorax is grossly intact. Cholecystectomy clips project over t he right upper quadrant. IMPRESSION: 1. Cardiomegaly and AICD. There is no radiographic evidence of congestive failure. 2. No airspace consolidation or pleural effusion is identified ACT 112: Negative or not required by law. Electronically signed by: Diego Ricardo M.D. 07/10/2019 4:38 PM
[2019-07-10 17:22] LABS: Basophils # (auto) 0.02 K/uL (0-0.2); Basophils % (auto) 0.2 %; Eosinophils # (auto) 0.08 K/uL (0-0.5); Eosinophils % (auto) 0.8 %; Hematocrit (blood only) 36.5 % (37-47); Immature Granulocytes # (auto) 0.03 K/uL (0.00-0.02); Immature Granulocytes % (auto) 0.3 %; Lymphocytes % (auto) 42.3 %; Mean Corpuscular Hemoglobin 29.3 pg (25-34); Mean Corpuscular Hgb Conc 32.9 g/dL (32-36); Mean Platelet Volume 10.4 fL (7.4-10.4); Monocytes # (auto) 0.62 K/uL (0.11-0.59); Monocytes % (auto) 6.2 %; Neutrophils # (auto) 4.99 K/uL (1.4-6.5); Neutrophils % (auto) 50.2 %; Platelet Count 268 K/uL (130-400); RDW Coefficient of Variation 12.5 % (11.5-14.5); RDW Standard Deviation 40.1 fL (36.4-46.3); White Blood Count 9.94 K/uL (4.8-10.8)
[2019-07-10 17:34] LABS: Partial Thromboplastin Ratio 0.9; Partial Thromboplastin Time 24.6 Seconds (21.0-31.0); Prothrombin Time 10.1 Seconds (9.0-12.0)
[2019-07-10 18:16] LABS: Alanine Aminotransferase 6 U/L (12-78); Albumin Globulin Ratio 0.6 (0.9-2); Albumin Level 3.4 gm/dl (3.4-5.0); Alkaline Phosphatase 97 U/L (45-117); Aspartate Aminotransferase 12 U/L (15-37); Beta-Hydroxybutyrate 0.99 mg/dl (0.2-2.81); Bilirubin,Total 0.5 mg/dl (0.2-1); Blood Urea Nitrogen 16 mg/dl (7-18); C Reactive Protein 0.86 mg/dl (0-0.29); Calcium 9.1 mg/dl (8.5-10.1); Carbon Dioxide 34 mmol/L (21-32); Chloride 98 mmol/L (98-107); Est GFR (African American) 43.3; Est GFR (Non-African American) 37.4; Globulin 5.6 gm/dl (2.5-4.0); Glucose 391 mg/dl (70-99); Magnesium 1.9 mg/dl (1.8-2.4); Potassium 4.9 mmol/L (3.5-5.1); Sodium 135 mmol/L (136-145); Troponin I < 0.015 ng/ml (0-0.045)
[2019-07-10] MEDS ORDERED: ACETAMINOPHEN 325 MG TAB PO PRN (18:22)
[2019-07-10] MEDS ORDERED: PIPERACILL/TAZOBAC CONSULT ACTIVE PRN (18:35)
[2019-07-10] MEDS ORDERED: PHARMACY GLYCEMIC MGMT CONSULT PRN (18:44)
[2019-07-10] MEDS ORDERED: DOCUSATE SODIUM/SENNA 50/8.6MG TAB PO PRN (18:45)
[2019-07-10] MEDS ORDERED: PATIENT'S HEIGHT AND/OR WEIGHT NEEDED SCH (19:00)
[2019-07-10] MEDS ORDERED: INSULIN HUMAN REGULAR PER UNIT 7 UNITS in SYRINGE 6.93 ML IV ONE (19:15)
--- NOTE | 2019-07-10 19:22 | History & Physical Report ---
Date of Service July 10, 2019 Assessment & Plan (1) Diabetic foot infection: -Admit to [facility] -Patient sent to the ED from orthopedic office for evaluation of hyperglycemia and preparation for possible right transmetatarsal amputation secondary to nonhealing diabetic foot wound -Wound culture from 06/10/2019 grew coag negative staph; patient has not been on any antibiotics -Does not appear septic -will start IV Zosyn and IV doxycycline -Arterial Doppler -Blood cultures -Ortho consult -Wound care consult (2) Hyperglycemia: (3) Diabetes mellitus type 2 with complications: -Blood sugar 391 on presentation labs -No signs of DKA -will give regular insulin 10 units IV x1 dose then managed with Lantus and NovoLog -Pharmacy glycemic consult -Hgb A1c 8.0 03/2019 (4) SABRINA (acute kidney injury): -Creatinine 1.4 (baseline 1.0) -Likely prerenal due to dehydration from hyperglycemia -IVF, monitor renal functions (5) Hypertension: -BP controlled, continue amlodipine, metoprolol, and isosorbide (6) Coronary atherosclerosis of tan[place] coronary vessel: -Appears stable, no reports of chest pain -Continue aspirin, Plavix, statin, beta-clyde, nitrate (7) Diastolic CHF: -Appears euvolemic -Monitor volume status closely while receiving IVF -Does not take routine diuretics at home (8) S/P implantation of automatic cardioverter/defibrillator (AICD): -No acute issues (9) Depression: -Patient reports increasing depression symptoms -No suicidal or homicidal thoughts -Mental health consult -Continue home dose of escitalopram (10) Parkinson disease: -Continue carbidopa-levodopa (11) DVT prophylaxis: -SQ heparin History of Present Illness Chief Complaint: Sent by orthopedic office for evaluation of hyperglycemia Primary Care Provider: Reginaldo Ramirez DO 63-year-old female who was sent to the ED by outpatient orthopedic office for evaluation of hyperglycemia. Patient was being evaluated by Dr. Quiros for evaluation of nonhealing right foot diabetic ulcer. Per the patient, he is planning for a transmetatarsal amputation in the next few days. Patient has been following with the wound care center. She reports she has not been on antibiotics recently. She denies having fevers and chills. There has been some drainage from the wounds. Patient denies recent episodes of chest pain or shortness of breath. No lightheadedness, dizziness, diaphoresis, syncopal events. She had some mild nausea today however denies any vomiting, abdominal pain, diarrhea. No urinary symptoms. Patient reports she has been feeling increased depression recently. No suicidal or homicidal thoughts. She is open to being evaluated by psychiatry while in the hospital. In the ED, labs show glucose 391. Patient does not appear to be in DKA. She was given IVF. Allergies Allergy/AdvReac Type Severity Reaction Status Date / Time bee venom protein (honey bee) Allergy Severe SWELLING Verified 07/10/19 16:54 lidocaine Allergy Severe ANAPHYLAXIS Verified 07/10/19 16:54 morphine Allergy Mild itching Verified 07/10/19 16:54 tramadol Allergy Mild ITCHING Verified 07/10/19 16:54 trazodone Allergy Mild ITCHING Verified 07/10/19 16:54 Home Medications Home Medications Medication Instructions Recorded Confirmed Type atorvastatin 40 mg PO QAM 04/02/18 07/10/19 History clopidogrel 75 mg PO HS 04/02/18 07/10/19 History docusate sodium [Colace] 100 mg PO BID 04/02/18 07/10/19 History isosorbide mononitrate 90 mg PO QAM 04/02/18 07/10/19 History nitroglycerin 0.4 mg SUBLINGUAL DIRECTED PRN 04/02/18 07/10/19 History ondansetron 4 mg TRANSLINGUAL Q8H PRN 04/02/18 07/10/19 History pantoprazole 40 mg PO DAILY 04/02/18 07/10/19 History aspirin 81 mg PO QAM 05/02/18 07/10/19 History albuterol sulfate 2 puff INHALATION Q4H PRN 08/21/18 07/10/19 History insulin aspart U-100 See Rx Instructions .ROUTE .COMPLEX 08/21/18 07/10/19 History insulin glargine 20 units SUBCUT BID 08/21/18 07/10/19 History metoprolol succinate 50 mg PO Q12H 08/21/18 07/10/19 History sennosides-docusate sodium 2 tab PO BID PRN #30 tab 01/21/19 07/10/19 Rx [Senokot-S] ipratropium bromide 0.03 % nasal 2 sprays INTNAS TID 02/06/19 07/10/19 History spray metronidazole 0.75 % topical cream 1 appln TOPICAL DAILY gm 02/06/19 07/10/19 History multivitamin 1 tab PO QAM 02/06/19 07/10/19 History carbidopa 25 mg-levodopa 100 mg 1 tab PO QID #120 tab 02/26/19 07/10/19 Rx tablet amlodipine 5 mg PO DAILY 07/10/19 07/10/19 History escitalopram oxalate 15 mg PO DAILY 07/10/19 07/10/19 History polyethylene glycol 3350 [Miralax] 17 gm PO DAILY 07/10/19 07/10/19 History Past Med/Surg History Medical History Asthma (Chronic) Coronary atherosclerosis of tanacross coronary vessel (Chronic 08/24/11) s/p CABG (SVG to OM, SVT to OM2, MEHTA to LAD) on 04/05/1998 s/p HEIDY x2 (LM and LAD) in 06/2012" Depression (Chronic) Diabetes mellitus type 2 with complications (Chronic) Diabetic nephropathy (Chronic) Diabetic retinopathy (Chronic) Diastolic CHF (Chronic) GERD (gastroesophageal reflux disease) (Chronic) Hypertension (Chronic) Obesity, Class II, BMI 35-39.9, with comorbidity (Chronic) Osteoarthritis (Chronic) Parkinson disease (Chronic) Polymyalgia rheumatica (Chronic) 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 Surgical History H/O eye surgery (Chronic) H/O: hysterectomy (Chronic) SUZY History of appendectomy (Chronic) History of cholecystectomy (Chronic) S/P implantation of automatic cardioverter/defibrillator (AICD) (Chronic) S/P triple vessel bypass (Chronic) 1997 Family History Mother Heart disease Hypertension Brother Asthma Brother Diabetes Father Diabetes Social History Preferred Language: Wolof Communication Ability: Effective Visual Impairment: Limited Hearing Ability: Normal Nurse Discharge Required: No Beliefs That Will Affect Care: None marital status: Current Living Situation: Family Current Living Situation Comment: lives with sister, Sarah Worley current occupational status: disabled Other Information That Helps Us Care for You: No Feels Safe at Home: Yes Safety Concerns: Feels Safe At This Time Smoking Status: Former smoker Do You Dip or Chew Tobacco: No ; Second Hand Exposure: No ; Tobacco Cessation Education Requested by Patient: No Hx Alcohol Use: Yes Alcohol type: wine Alcohol Intake Frequency: Rarely Hx Substance Use: No Review of Systems Review of Systems: ROS per HPI, all other systems reviewed and negative Physical Exam Constitutional: WD/WN, vitals as above Eyes: PERRL, conjunctivae normal, anicteric sclerae ENMT: external ear and nose normal, oropharynx normal Respiratory: normal respiratory effort, lungs clear to auscultation Cardiovascular: Rate/Rhythm: regular rate and regular rhythm Vessels: + abnormal peripheral pulses (Pedal pulses diminished) Extremities: no edema Gastrointestinal (Abdomen): normal bowel sounds, soft, nontender, no hepatosplenomegaly Musculoskeletal: no cyanosis or clubbing, extremities motor strength 5/5 Skin: no rashes, warm and dry Wounds noted to medial base of right great toe and dorsal aspect of right second toe, wounds open and wet appearing with foul odor Neurologic: PERRL, EOMI, accommodation nl, no face palsy, no dysarthria Psychiatric: A+Ox3, euthymic affect Results & Data Vital Signs (Past 12 Hours) Vital Signs Temp Pulse Resp BP Pulse Ox 07/10/19 17:30 66 13 07/10/19 17:00 60 14 07/10/19 16:31 60 18 07/10/19 16:30 67 15 143/86 H 07/10/19 16:01 60 16 07/10/19 16:00 60 16 142/67 H 07/10/19 15:58 60 17 119/47 L 07/10/19 14:54 36.5 C 71 20 110/63 98 Laboratory Results Short CBC 07/10/19 Range/Units 17:05 WBC 9.94 (4.8-10.8) K/uL Hgb 12.0 (12.0-16.0) g/dL Hct 36.5 L (37-47) % Plt Count 268 (130-400) K/uL BMP 07/10/19 17:05 Sodium 135 L Potassium 4.9 Chloride 98 Carbon Dioxide 34 H BUN 16 Creatinine 1.46 H Glucose 391 H* Calcium 9.1 Cardiac Enzymes 07/10/19 Range/Units 17:05 Troponin I < 0.015 (0-0.045) ng/ml Liver Function 07/10/19 Range/Units 17:05 Total Bilirubin 0.5 (0.2-1) mg/dl AST 12 L (15-37) U/L ALT 6 L (12-78) U/L Alkaline Phosphatase 97 (45-117) U/L Albumin 3.4 (3.4-5.0) gm/dl Diagnostic Findings CXR IMPRESSION: 1. Cardiomegaly and AICD. There is no radiographic evidence of congestive failure. 2. No airspace consolidation or pleural effusion is identified Code Status & VTE Plan Code Status Patient is a full code as per my discussion with her. VTE Prophylaxis Plan VTE Prophylaxis will be ordered: Yes Supervising Physician Co-Signing Physician Notes Attending addendum: The patient was seen and examined in emergency room She was transferred from orthopedics office to the ER for admission to control diabetes before the proposed surgery Denies any symptoms Denies any increasing pain and/or swelling or drainage from the right foot wound On examination Lying in bed without any distress She is obese and hemodynamically stable Chest-clear Heart-S1-S2, regular. No murmur appreciated Abdomen-benign Extremities-trace edema bilaterally Right big and second toe gangrenous, minimal drainage from dorsum of second toe with adjoining swelling of the foot and edema with increasing warmth Admission labs and imaging studies reviewed Has diabetic foot ulcer which required to be surgically amputated Agree with assessment and plan as outlined above by Stefanie Stephenson
[2019-07-10] MEDS: INSULIN ASPART 100 UNITS/ML 3 ML PEN SC SCH ×2 (19:28→22:44)
[2019-07-10] MEDS ORDERED: DEXTROSE 50% 50 ML SYRINGE IV PRN (19:30)
[2019-07-10] MEDS ORDERED: GLUCOSE 10 TABS/TUBE PO PRN (19:30)
[2019-07-10] MEDS ORDERED: GLUCAGON FOR INJ 1 MG VIAL IM PRN (19:30)
[2019-07-10] MEDS ORDERED: PIPERACILLIN/TAZOBACTAM 3.375 GM in DEXTROSE 5% 100 ML IV ONE (19:30)
[2019-07-10] MEDS ORDERED: GLUCOSE 40% GEL 15 GM TUBE PO PRN (19:30)
[2019-07-10] MEDS: SODIUM CHLORIDE 0.9% 1000ML 1,000 ML IV SCH (19:37)
[2019-07-10] MEDS ORDERED: INSULIN GLARGINE SOLOSTAR 100 UNITS/ML 3 ML PEN SC ONE (19:45)
--- NOTE | 2019-07-10 20:18 | Pharmacy Report ---
Glycemic Control Consultation - Date of Service July 10, 2019 - Scope Scope: Glycemic Pharmacist consulted by Stefanie Bravo PA-C on 07/10/19 for glycemic control and to write orders per [facility] inpatient glycemic control protocol - Objective Weight: 75.1 kg Accuchecks BSG (last 24hrs): 07/10/19 07/10/19 07/10/19 15:00 17:05 18:38 Glucose 391 H* POC Glucose 352 H* 367 H* 07/10/19 18:39 Glucose POC Glucose 354 H* Laboratory Data (last 24hrs): 07/10/19 17:05 Potassium 4.9 Carbon Dioxide 34 H Anion Gap 3.0 Creatinine 1.46 H Est Cr Clr Drug Dosing Not Reportable Beta-Hydroxybutyric Acd 0.99 - Recent Pertinent Medications Outpatient Anti-diabetic Regimen: * Lantus 20 units BID * Novolog SSI * A1c pending for 07/11/19 Risk Factors for Insulin Resistance: * Infection: Zosyn/doxycycline for treatment of diabetic foot infection * Diet: T2DM - Assessment & Plan Assessment & Plan: ASSESSMENT: * OSITO is a 63 year old female who presented to [facility] ED on 07/10/19 from the office of her orthopedic surgeon due to hyperglycemia. Plan is for patient to undergo possible right transmetatarsal amputation in the next few days. 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 * Patient did not receive any insulin in the ED - BSG of 352 mg/dL * Ordered 7 unit IV insulin bolus once patient arrived on floor (0.1 unit/kg) * Potassium: 4.9 mmol/L * Patient currently receiving Zosyn and doxycycline IV for treatment of diabetic foot infection PLAN FOR INPATIENT GLYCEMIC CONTROL: * Basal insulin * Lantus 40 units x 1 (full daily dose) * Lantus 20 units BID starting tomorrow morning * Bolus insulin * NovoLog per scale ACHS or Q6hrs while NPO * Goal Range: Low 120 mg/dL - High 150 mg/dL * Correction Factor: 20 mg/dL/unit * Nutritional / Prandial insulin per carb ratio of 1 unit per 7 grams CHO consumed * Overnight checks with same parameters at 23,03 * Please note that the plan above was derived based on current level of insulin resistance and hospital stress. These recommendations are appropriate for inpatient admission only. Plan of care upon discharge will need to be reassessed to avoid potential outpatient hypo/hyperglycemia. Thank you.
[2019-07-10 20:19] LABS: Base Excess VBG -0.3 mEq/L; HCO3 VBG 26 mmol/L; Oxygen Saturation VBG < 60.0 %; PCO2 VBG 51 mmHg (38-50); PO2 VBG 29 mmHg; pH VBG 7.33 (7.36-7.41)
[2019-07-10] MEDS: DOXYCYCLINE HYCLATE 100 MG in DEXTROSE 5% 100 ML IV SCH (21:04)
[2019-07-10] MEDS: HEPARIN SOD 5,000 UNIT/0.5 ML VIAL SQ SCH (21:07)
[2019-07-10] MEDS: CARBIDOPA/LEVODOPA 25/100MG TAB PO SCH (21:09)
[2019-07-10] MEDS: CLOPIDOGREL BISULFATE 75 MG TAB PO SCH (21:09)
[2019-07-10] MEDS: METOPROLOL SUCC 50MG EXT REL TAB PO SCH (21:09)
[2019-07-10] MEDS: DOCUSATE SODIUM 100 MG CAP PO SCH (21:09)
--- NOTE | 2019-07-10 21:19 | Ultrasound Report ---
US arterial duplex LE RT HISTORY: 63 years-old Female non healing wound nonhealing wound of the right lower extremity COMPARISON: CT right foot 07/06/2019 TECHNIQUE: Multiple real-time sonographic images of the right lower extremity arterial structures wer e obtained assessing grayscale appearance, color and spectral flow. Segmental blood pressures also ob tained. FINDINGS: SEGMENTAL BLOOD PRESSURES: Right: Brachial not recorded. Posterior tibial of 136 (1.09); dorsalis pedis of 129 (1.03). Left: Brachial 125 (index); posterior tibial of 135 (1.08); talus pedis of 134 (1.07). Triphasic waveforms are noted within the common femoral, profunda femoris and superficial femoral art eries. Mildly increased peak systolic velocities within the distal aspect of the superficial femoral artery measure up to 204 cm/s. Mildly blunted biphasic waveforms within the mid and distal popliteal artery. Biphasic and monophasic waveforms noted within the lower leg. No arterial occlusion. IMPRESSION: 1. No arterial occlusion. 2. Mildly elevated peak systolic velocities the distal right superficial femoral artery measure up to 204 cm/s. 3. Biphasic and monophasic waveforms in the lower leg. ACT 112: Negative or not required by law. The above report was generated using voice recognition software. It may contain grammatical, syntax o r spelling errors. Electronically signed by: George Childers M.D. 07/10/2019 9:17 PM
[2019-07-10] MEDS ORDERED: INSULIN HUMAN REGULAR PER UNIT 3 UNITS in SYRINGE 2.97 ML IV ONE (23:15)
[2019-07-10] MEDS: PIPERACILLIN/TAZOBACTAM 3.375 GM in DEXTROSE 5% 100 ML IV SCH (23:39)
[2019-07-11] MEDS: INSULIN ASPART 100 UNITS/ML 3 ML PEN SC SCH ×5 (01:59→21:04)
[2019-07-11] MEDS ORDERED: INSULIN ASPART 100 UNITS/ML 3 ML PEN SC SCH ×2 (02:00)
[2019-07-11] MEDS: HEPARIN SOD 5,000 UNIT/0.5 ML VIAL SQ SCH ×3 (05:16→21:07)
[2019-07-11 05:59] LABS: Hematocrit (blood only) 31.6 % (37-47); Hemoglobin 10.3 g/dL (12.0-16.0); Mean Corpuscular Hemoglobin 28.7 pg (25-34); Mean Corpuscular Hgb Conc 32.6 g/dL (32-36); Mean Platelet Volume 10.1 fL (7.4-10.4); Platelet Count 205 K/uL (130-400); RDW Coefficient of Variation 12.5 % (11.5-14.5); RDW Standard Deviation 40.6 fL (36.4-46.3); Red Blood Count 3.59 M/uL (4.2-5.4)
[2019-07-11 06:37] LABS: BUN Creatinine Ratio 11.9 (10-20); Creatinine Clr Calc Pharmacy 45.5 ml/min; Est GFR (African American) 56.6; Est GFR (Non-African American) 48.9; Potassium 3.8 mmol/L (3.5-5.1)
[2019-07-11 06:46] LABS: Appearance Urine Turbid (Clear); Bacteria Urine Automated Negative (Negative); Bilirubin Urine Negative (Negative); Blood Urine 2+ (Negative); Color Urine Yellow; Epithelial Cell Urine Auto 20-30 /lpf (0-5); Glucose Urine UA 1+ (Negative); Ketones Urine Negative (Negative); Leukocyte Esterase Urine 3+ (Negative); Nitrite Urine Negative (Negative); Protein Urine Trace (Negative); Specific Gravity Urine 1.011 (1.000-1.030); Urobilinogen Urine Negative (Negative); WBC Urine Automated >30 /hpf (0-5); pH Urine 5.5 (4.5-7.5)
[2019-07-11 07:09] LABS: RBC Urine Automated 0-4 /hpf (0-4)
[2019-07-11 07:19] LABS: Estimated Average Glucose 272 mg/dl; Hemoglobin A1C 11.1 % (4.5-5.6)
[2019-07-11] MEDS: SODIUM CHLORIDE 0.9% 1000ML 1,000 ML IV SCH ×2 (08:38→20:08)
[2019-07-11] MEDS ORDERED: ESCITALOPRAM OXALATE 10 MG TAB PO SCH (09:00)
[2019-07-11] MEDS: MULTIVITAMIN TAB PO SCH (09:53)
[2019-07-11] MEDS: ASPIRIN 81 MG ECTAB PO SCH (09:53)
[2019-07-11] MEDS: ISOSORBIDE MONO EXTENDED REL 30 MG TABCR PO SCH (09:53)
[2019-07-11] MEDS: ATORVASTATIN 40 MG TAB PO SCH (09:53)
[2019-07-11] MEDS: METOPROLOL SUCC 50MG EXT REL TAB PO SCH ×2 (09:54→20:05)
[2019-07-11] MEDS: AMLODIPINE BESYLATE 5 MG TAB PO SCH (09:54)
[2019-07-11] MEDS: CARBIDOPA/LEVODOPA 25/100MG TAB PO SCH ×4 (09:54→20:05)
[2019-07-11] MEDS: DOCUSATE SODIUM 100 MG CAP PO SCH ×2 (09:55→20:05)
[2019-07-11] MEDS: PANTOprazole 40 MG TAB PO SCH (09:55)
[2019-07-11] MEDS: POLYETHYLENE (MIRALAX) 17 GM PACK PO SCH (09:56)
[2019-07-11] MEDS: INSULIN GLARGINE SOLOSTAR 100 UNITS/ML 3 ML PEN SC SCH ×2 (10:04→21:06)
[2019-07-11] MEDS: DOXYCYCLINE HYCLATE 100 MG in DEXTROSE 5% 100 ML IV SCH ×2 (10:32→20:05)
[2019-07-11] MEDS: PIPERACILLIN/TAZOBACTAM 3.375 GM in DEXTROSE 5% 100 ML IV SCH ×2 (12:05→20:58)
--- NOTE | 2019-07-11 13:11 | Psychiatric Consultation ---
Date of Consultation July 11, 2019 Impression / Recommendations Impression 63-year-old female with multiple medical problems facing likely pending amputation. She has multiple medical problems that increase her risk for depression including vascular disease and Parkinson's disease as well as her history of depression and acute medical stressors. She acknowledges depressive mood but denies hopelessness, suicidal ideation, and interestingly her neurovegetative profile is fairly benign based on self-report today. Due to pending surgery, I would not suggest making the jump to an alternative antidepressant at this time and would prefer to wait for at least a few weeks for her to convalesce from that to minimize the risk of accidentally decompensating her mood stability in attempting a cross taper presently however, given age and risk factors previously noted, she might do better with an SNRI as an alternative to the Lexapro and she could be considered for cross taper from Lexapro to venlafaxine ER or cymbalta if she requires additional mood support in the coming months. Again, due to multiple risk factors, she was advised she would likely benefit from ongoing outpatient psychiatric follow-up and she was agreeable and we will try to facilitate referral. Presently, to try to best support her mood with minimal additional risk, will increase Lexapro from 15 mg to 20 mg daily. This is above the FDA recommended dose for geriatric patients and this agent does have some risk for QTC prolongation at higher doses however she had a QTC interval well within normal range yesterday and does have a defibrillator placed and reports she has previously tolerated the medication well (presently prescribed y her PCP) and the potential therapeutic benefits are felt to outweigh the potential risks presently. She was in agreement with dose escalation as recommended. Thank you for allowing us to participate in her care. Will follow. (1) Depression: CPT Code 02638 Psych History Chief Complaint " It has been hard". History of Present Illness Per medical admission note: 63-year-old female who was sent to the ED by outpatient orthopedic office for evaluation of hyperglycemia. Patient was being evaluated by Dr. Quiros for evaluation of nonhealing right foot diabetic ulcer. Per the patient, he is planning for a transmetatarsal amputation in the next few days. Patient has been following with the wound care center. She reports she has not been on antibiotics recently. She denies having fevers and chills. There has been some drainage from the wounds. Patient denies recent episodes of chest pain or shortness of breath. No lightheadedness, dizziness, diaphoresis, syncopal events. She had some mild nausea today however denies any vomiting, abdominal pain, diarrhea. No urinary symptoms. Patient reports she has been feeling increased depression recently. No suicidal or homicidal thoughts. She is open to being evaluated by psychiatry while in the hospital. In the ED, labs show glucose 391. Patient does not appear to be in DKA. She was given IVF. Records reviewed. Patient been treated with IV antibiotics for nonhealing foot infection associated with diabetes with likely pending right metatarsal amputation. She is also being treated for type 2 diabetes, acute kidney injury, she is on her home antihypertensive regimen, she has a history of coronary atherosclerosis, congestive heart failure, and is status post cardioverter defibrillator implant. Additionally she has what appears to be a fairly recent diagnosis of Parkinson's disease and treated with Sinemet. Psychiatric consultation requested for depression. On interview this morning patient repor ts a history of depression and believes she previously responded positively to Lexapro which was started several years ago and helped reduce frequency of crying spells. She believes she has been on the same dose prescribed by her PCP for several years. This medication has been well-tolerated. She describes a multitude of losses including 3 brothers who have since 2018 and the emotional shock associated with pending amputation. She denies experiencing much guilt associated with her medical debility and feels well supported by family at home. She denies anhedonia, confusion, changes in sleep patterns or appetite at home. She denies any thoughts of life not being worth living or suicide and indicates that her rastafari belief makes suicide not an option as it is a sin and she does not want to go to hel. She is Mosque and her anabaptist and rastafari vi are important to her. She denies symptoms of psychosis, bipolar disorder, or a significant history of anxiety however she acknowledges that other people have told her that she worries too much in the past. She believes she may have had panic attacks in the more distant past but not since on the Lexapro. Presently she is willing to undergo the treatment that is recommended to her. "What choice do I have?" Past Psychiatric History Previous Psych History: She reports distant treatment with psychiatrist but cannot recall specifics Current Psychiatric Diagnosis: Depression treated by PCP Outpatient Services: None Previous Psych Admissions: Denies History of Previous Suicide Attempt: No Past Medication Trials: Lexapro is only recalled psychotropic Allergies Allergy/AdvReac Type Severity Reaction Status Date / Time bee venom protein (honey bee) Allergy Severe SWELLING Verified 07/10/19 16:54 lidocaine Allergy Severe ANAPHYLAXIS Verified 07/10/19 16:54 morphine Allergy Mild itching Verified 07/10/19 16:54 tramadol Allergy Mild ITCHING Verified 07/10/19 16:54 trazodone Allergy Mild ITCHING Verified 07/10/19 16:54 Home Medications Home Medications Medication Instructions Recorded Confirmed Type atorvastatin 40 mg PO QAM 04/02/18 07/10/19 History clopidogrel 75 mg PO HS 04/02/18 07/10/19 History docusate sodium [Colace] 100 mg PO BID 04/02/18 07/10/19 History isosorbide mononitrate 90 mg PO QAM 04/02/18 07/10/19 History nitroglycerin 0.4 mg SUBLINGUAL DIRECTED PRN 04/02/18 07/10/19 History ondansetron 4 mg TRANSLINGUAL Q8H PRN 04/02/18 07/10/19 History pantoprazole 40 mg PO DAILY 04/02/18 07/10/19 History aspirin 81 mg PO QAM 05/02/18 07/10/19 History albuterol sulfate 2 puff INHALATION Q4H PRN 08/21/18 07/10/19 History insulin aspart U-100 See Rx Instructions .ROUTE .COMPLEX 08/21/18 07/10/19 History insulin glargine 20 units SUBCUT BID 08/21/18 07/10/19 History metoprolol succinate 50 mg PO Q12H 08/21/18 07/10/19 History sennosides-docusate sodium 2 tab PO BID PRN #30 tab 01/21/19 07/10/19 Rx [Senokot-S] ipratropium bromide 0.03 % nasal 2 sprays INTNAS TID 02/06/19 07/10/19 History spray metronidazole 0.75 % topical cream 1 appln TOPICAL DAILY gm 02/06/19 07/10/19 History multivitamin 1 tab PO QAM 02/06/19 07/10/19 History carbidopa 25 mg-levodopa 100 mg 1 tab PO QID #120 tab 02/26/19 07/10/19 Rx tablet amlodipine 5 mg PO DAILY 07/10/19 07/10/19 History escitalopram oxalate 15 mg PO DAILY 07/10/19 07/10/19 History polyethylene glycol 3350 [Miralax] 17 gm PO DAILY 07/10/19 07/10/19 History Family History Psychiatrically noncontributory Substance Abuse History Denies Personal History Living Arrangements: Home (Lives in her sister's home with niece and her children) Living Arrangements Comments: She feels well supported at home Born In: [place] Childhood: Normal Highest Grade Completed: High School Graduate 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) Marital Status: (1997) Number Of Children: No living children Beliefs That Will Affect Care: None History of Legal Problems: denies Psychological Trauma History Comment: denies Patient History Medical History Asthma (Chronic) Coronary atherosclerosis of [place] coronary vessel (Chronic 08/24/11) s/p CABG (SVG to OM, SVT to OM2, MEHTA to LAD) on 04/05/1998 s/p HEIDY x2 (LM and LAD) in 06/2012" Depression (Chronic) Diabetes mellitus type 2 with complications (Chronic) Diabetic nephropathy (Chronic) Diabetic retinopathy (Chronic) Diastolic CHF (Chronic) GERD (gastroesophageal reflux disease) (Chronic) Hypertension (Chronic) Obesity, Class II, BMI 35-39.9, with comorbidity (Chronic) Osteoarthritis (Chronic) Parkinson disease (Chronic) Polymyalgia rheumatica (Chronic) 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 Beliefs That Will Affect Care: None marital status: / Current Living Situation: Family Current Living Situation Comment: lives with sisterSarah current occupational status: disabled Other Information That Helps Us Care for You: No Feels Safe at Home: Yes Safety Concerns: Feels Safe At This Time Smoking Status: Former smoker Do You Dip or Chew Tobacco: No ; Second Hand Exposure: No ; Tobacco Cessation Education Requested by Patient: No Hx Alcohol Use: Yes Alcohol type: wine Alcohol Intake Frequency: Rarely Hx Substance Use: No Physical Exam Psychiatric: Orientation: alert, oriented x 3 and cooperative (Initially mildly guarded) Apperance: appeared stated age Eye Contact: + fair eye contact Motor Behavior: + tremor Resting tremor right distal upper extremity Speech is slightly monotone and occasional abruptness, clear and easily intelligible Affect: + blunted affect Mood: + depressed mood Thought Process: goal directed thought process Thought Content: reality based without delusions Suicidal Thoughts: denies suicidal thoughts and denies suicidal plan Homicidal Thoughts: denies homicidal thoughts Hallucinations: no auditory hallucinations, no visual hallucinations and no tactile hallucinations Cognition: recent memory grossly intact Estimated Intelligence: average estimated intelligence Insight: good insight Judgement: good judgement Vital Signs (Past 24 Hours): Last Vital Signs Temp 36.8 C 07/11/19 08:22 Pulse 60 07/11/19 08:22 Resp 17 07/11/19 08:22 BP 114/71 07/11/19 08:22 Pulse Ox 97 07/11/19 08:22 Review of Systems Psychiatric: as per Subjective / HPI and + depression; no suicidal ideation, no panic attacks, no confusion and no hallucinations Results & Data Medications Administered Amlodipine Besylate (Norvasc) 5 mg PO DAILY [facility] Stop: 08/10/19 08:59 Last Admin: 07/11/19 09:54 Dose: 5 mg Documented by: [id number] Aspir[facility] ([facility]ab) [facility]: 08/10/19 08:59 Last Admin: 07/11/19 09:53 Dose: 81 mg Documented by: [id number] Atorvastatin Calcium (Lipitor) 40 mg PO QAM [facility] Stop: 08/10/19 08:59 Last Admin: 07/11/19 09:53 Dose: 40 mg Documented by: [id number] Carbidopa/Levodopa (Sinemet 25/100 Mg) 1 tab PO QID [facility] Stop: 08/09/19 20:59 Last Admin: 07/11/19 09:54 Dose: 1 tab Documented by: [id number] Admin: 07/10/19 21:09 Dose: 1 tab Documented by: [id number] Clopidogrel Bisulfate (Plavix) 75 mg PO HS [facility] Stop: 08/09/19 20:59 Last Admin: 07/10/19 21:09 Dose: 75 mg Documented by: [id number] Docusate Sodium (Colace) 100 mg PO BID [facility] Stop: 08/09/19 20:59 Last Admin: 07/11/19 09:55 Dose: 100 mg Documented by: [id number] Admin: 07/10/19 21:09 Dose: 100 mg Documented by: [id number] Escitalopram Oxalate (Lexapro Tab) 15 mg PO DAILY [facility] Stop: 08/10/19 08:59 Last Admin: 07/11/19 09:54 Dose: 15 mg Documented by: [id number] Heparin Sodium (Porcine) (Heparin Sodium (Porcine)) 5,000 units SQ Q8 [facility] Stop: 08/09/19 21:59 Last Admin: 07/11/19 05:16 Dose: 5,000 units Documented by: [id number] Cosigned by: [id number] Admin: 07/10/19 21:07 Dose: 5,000 units Documented by: [id number] Cosigned by: [id number] Doxycycline Hyclate 100 mg/ (Dextrose) 110 mls @ 50 mls/hr IV Q12H [facility]; Protocol Stop: 07/20/19 19:59 Last Infusion: 07/11/19 12:35 Dose: 0 mls/hr Documented by: [id number] Admin: 07/11/19 10:32 Dose: 50 mls/hr Documented by: [id number] Infusion: 07/10/19 23:16 Dose: 0 mls/hr Documented by: [id number] Admin: 07/10/19 21:04 Dose: 50 mls/hr Documented by: [id number] Sodium Chloride (Nss 1000ml) 1,000 mls @ 80 mls/hr IV .[id number] [facility] Stop: 08/09/19 18:44 Last Admin: 07/11/19 08:38 Dose: 80 mls/hr Documented by: [id number] Infusion: 07/11/19 08:07 Dose: 80 mls/hr Documented by: [id number] Admin: 07/10/19 19:37 Dose: 80 mls/hr Documented by: [id number] Piperacillin Sod/Tazobactam (Sod 3.375 gm/ Dextrose) 115 mls @ 28.75 mls/hr IV Q8H [facility]; Protocol Stop: 07/21/19 00:00 Last Infusion: 07/11/19 12:08 Dose: 0 mls/hr Documented by: [id number] Admin: 07/11/19 12:05 Dose: 28.8 mls/hr Documented by: [id number] Infusion: 07/11/19 03:28 Dose: 0 mls/hr Documented by: [id number] Admin: 07/10/19 23:39 Dose: 28.8 mls/hr Documented by: [id number] Insulin Aspart (Novolog Flexpen) 0 units SC ACHS [facility] Stop: 08/09/19 19:44 Last Admin: 07/11/19 10:03 Dose: 7 units Documented by: [id number] Cosigned by: [id number] Admin: 07/10/19 19:28 Dose: 17 units Documented by: [id number] Cosigned by: [id number] Insulin Glargine (Lantus Solostar Pen) 20 units SC BID [facility]; Protocol Stop: 08/10/19 08:59 Last Admin: 07/11/19 10:04 Dose: 20 units Documented by: [id number] Cosigned by: [id number] Isosorbide Mononitrate (Imdur Extended Rel) 90 mg PO QAM [facility] Stop: 08/10/19 08:59 Last Admin: 07/11/19 09:53 Dose: 90 mg Documented by: [id number] Metoprolol Succinate (Toprol Xl) 50 mg PO Q12 [facility] Stop: 08/09/19 19:59 Last Admin: 07/11/19 09:54 Dose: 50 mg Documented by: [id number] Admin: 07/10/19 21:09 Dose: 50 mg Documented by: [id number] Multivitamins (Multivitamin Tab) 1 tab PO QAM [facility] Stop: 08/10/19 08:59 Last Admin: 07/11/19 09:53 Dose: 1 tab Documented by: [id number] Pantoprazole Sodium (Protonix) 40 mg PO DAILY [facility] Stop: 08/10/19 08:59 Last Admin: 07/11/19 09:55 Dose: 40 mg Documented by: [id number] Polyethylene Glycol (Miralax Powder Packet) 17 gm PO DAILY [facility] Stop: 08/10/19 08:59 Last Admin: 07/11/19 09:56 Dose: 17 gm Documented by: [id number] Coding Level of Care Code 60359 [facility] Intl Hosp Care Lvl 2 Diagnoses Depression F32.9 Time Spent (min) 65
--- NOTE | 2019-07-11 15:07 | Hospitalist Progress Note ---
Date of Service July 11, 2019 Assessment & Plan (1) Diabetic foot infection: -Admit to [facility] -Patient sent to the ED from orthopedic office for evaluation of hyperglycemia and preparation for possible right transmetatarsal amputation secondary to nonhealing diabetic foot wound -Wound culture from 06/10/2019 grew coag negative staph; patient has not been on any antibiotics -Does not appear septic -will start IV Zosyn and IV doxycycline -Arterial Doppler; no significant obstruction -Blood cultures-pending -Ortho consult-appreciate input and recommendation -Wound care consult -Clinically stable and does not have any complaints (2) Hyperglycemia: Management as below (3) Diabetes mellitus type 2 with complications: -Blood sugar 391 on presentation labs -No signs of DKA -will give regular insulin 10 units IV x1 dose then managed with Lantus and NovoLog -Pharmacy glycemic consult -Hgb A1c 8.0 03/2019 -Blood sugar seems to be under control (4) SABRINA (acute kidney injury): -Creatinine 1.4 (baseline 1.0) -Likely prerenal due to dehydration from hyperglycemia -IVF, monitor renal functions (5) Hypertension: -BP controlled, continue amlodipine, metoprolol, and isosorbide (6) Coronary atherosclerosis of [place] coronary vessel: -Appears stable, no reports of chest pain -Continue aspirin, Plavix, statin, beta-clyde, nitrate (7) Diastolic CHF: -Appears euvolemic -Monitor volume status closely while receiving IVF -Does not take routine diuretics at home (8) S/P implantation of automatic cardioverter/defibrillator (AICD): -No acute issues (9) Depression: -Patient reports increasing depression symptoms -No suicidal or homicidal thoughts -Mental health consult -Appreciate psychiatric input and recommendation (10) Parkinson disease: -Continue carbidopa-levodopa -No acute parkinsonian symptoms (11) DVT prophylaxis: -SQ heparin Discussed in detail with the patient Subjective 07/11 The patient was seen and examined in telemetry unit She denies any complaints and the blood sugar has been running around 110s No leg pain or foot pain and no fever and/or chills Review of Systems Review of Systems: All systems reviewed and are unremarkable except as noted below Musculoskeletal: Ulcers right toes without any pain Physical Exam Physical Exam: Lying in bed without any acute distress Constitutional: WD/WN, vitals as above Eyes: PERRL, conjunctivae normal, anicteric sclerae ENMT: external ear and nose normal, oropharynx normal Respiratory: normal respiratory effort, lungs clear to auscultation Cardiovascular: Rate/Rhythm: regular rate and regular rhythm Vessels: + abnormal peripheral pulses (Pedal pulses diminished) Extremities: no edema Gastrointestinal (Abdomen): normal bowel sounds, soft, nontender, no hepatosplenomegaly Musculoskeletal: Right big and second toe gangrenous, minimal drainage from dorsum of second toe with adjoining swelling of the foot and edema with increasing warmth Skin: no rashes, warm and dry Neurologic: PERRL, EOMI, accommodation nl, no face palsy, no dysarthria Psychiatric: A+Ox3, euthymic affect Lymphatic: no cervical or axillary lymphadenopathy Results & Data Vital Signs (Past 12 Hours) Vital Signs Temp Pulse Resp BP Pulse Ox 07/11/19 15:00 36.8 C 63 16 96/55 L 97 07/11/19 08:22 36.8 C 60 17 114/71 97 Laboratory Results Short CBC 07/10/19 07/11/19 Range/Units 17:05 05:44 WBC 9.94 6.90 (4.8-10.8) K/uL Hgb 12.0 10.3 L (12.0-16.0) g/dL Hct 36.5 L 31.6 L (37-47) % Plt Count 268 205 (130-400) K/uL BMP 07/10/19 07/11/19 17:05 05:44 Sodium 135 L 139 Potassium 4.9 3.8 D Chloride 98 104 Carbon Dioxide 34 H 33 H BUN 16 14 Creatinine 1.46 H 1.17 Glucose 391 H* 144 H Calcium 9.1 9.0 Cardiac Enzymes 07/10/19 Range/Units 17:05 Troponin I < 0.015 (0-0.045) ng/ml Liver Function 07/10/19 Range/Units 17:05 Total Bilirubin 0.5 (0.2-1) mg/dl AST 12 L (15-37) U/L ALT 6 L (12-78) U/L Alkaline Phosphatase 97 (45-117) U/L Albumin 3.4 (3.4-5.0) gm/dl Urine 07/11/19 Range/Units 02:11 Urine Color Yellow Urine Appearance Turbid A (Clear) Urine pH 5.5 (4.5-7.5) Ur Specific [place] 1.011 (1.000-1.030) Urine Protein Trace H (Negative) Urine Glucose (UA) 1+ H (Negative) Medications Administered Current Inpatient Medications Acetaminophen (Tylenol) 650 mg PO Q4H PRN PRN Reason: pain/fever Stop: 08/09/19 18:21 Amlodipine Besylate (Norvasc) 5 mg PO DAILY [facility] Stop: 08/10/19 08:59 Last Admin: 07/11/19 09:54 Dose: 5 mg Documented by: Aspirin (Ecotrin Ectab) 81 mg PO QAM [facility] Stop: 08/10/19 08:59 Last Admin: 07/11/19 09:53 Dose: 81 mg Documented by: Atorvastatin Calcium (Lipitor) 40 mg PO QAM [facility] Stop: 08/10/19 08:59 Last Admin: 07/11/19 09:53 Dose: 40 mg Documented by: Carbidopa/Levodopa (Sinemet 25/100 Mg) 1 tab PO QID [facility] Stop: 08/09/19 20:59 Last Admin: 07/11/19 13:23 Dose: 1 tab Documented by: Clopidogrel Bisulfate (Plavix) 75 mg PO HS [facility] Stop: 08/09/19 20:59 Last Admin: 07/10/19 21:09 Dose: 75 mg Documented by: Dextrose (Dextrose 50%) 25 - 50 ml IV UD PRN; Protocol PRN Reason: Hypoglycemia Protocol Stop: 08/09/19 19:29 Docusate Sodium (Colace) 100 mg PO BID [facility] Stop: 08/09/19 20:59 Last Admin: 07/11/19 09:55 Dose: 100 mg Documented by: Escitalopram Oxalate (Lexapro Tab) 20 mg PO DAILY [facility] Stop: 08/11/19 08:59 Glucagon (Glucagen) 1 mg IM UD PRN; Protocol PRN Reason: Hypoglycemia Protocol Stop: 08/09/19 19:29 Glucose (Glucose 40%) 15 - 30 gm PO UD PRN; Protocol PRN Reason: Hypoglycemia Protocol Stop: 08/09/19 19:29 Glucose (Dex4 Glucose) 4 - 8 tabs PO UD PRN; Protocol PRN Reason: Hypoglycemia Protocol Stop: 08/09/19 19:29 Heparin Sodium (Porcine) (Heparin Sodium (Porcine)) 5,000 units SQ Q8 [facility] Stop: 08/09/19 21:59 Last Admin: 07/11/19 13:23 Dose: 5,000 units Documented by: Doxycycline Hyclate 100 mg/ (Dextrose) 110 mls @ 50 mls/hr IV Q12H [facility]; Protocol Stop: 07/20/19 19:59 Last Infusion: 07/11/19 12:35 Dose: Infused Documented by: Sodium Chloride (Nss 1000ml) 1,000 mls @ 80 mls/hr IV .[id number] [facility] Stop: 08/09/19 18:44 Last Admin: 07/11/19 08:38 Dose: 80 mls/hr Documented by: Piperacillin Sod/Tazobactam (Sod 3.375 gm/ Dextrose) 115 mls @ 28.75 mls/hr IV Q8H [facility]; Protocol Stop: 07/21/19 00:00 Last Infusion: 07/11/19 12:30 Dose: 28.8 mls/hr Documented by: Insulin Aspart (Novolog Flexpen) 0 units SC ACHS [facility] Stop: 08/09/19 19:44 Last Admin: 07/11/19 13:22 Dose: 9 units Documented by: Insulin Glargine (Lantus Solostar Pen) 20 units SC BID [facility]; Protocol Stop: 08/10/19 08:59 Last Admin: 07/11/19 10:04 Dose: 20 units Documented by: Isosorbide Mononitrate (Imdur Extended Rel) 90 mg PO [facility] Stop: 08/10/19 08:59 Last Admin: 07/11/19 09:53 Dose: 90 mg Documented by: Metoprolol Succinate (Toprol Xl) 50 mg PO Q12 [facility] Stop: 08/09/19 19:59 Last Admin: 07/11/19 09:54 Dose: 50 mg Documented by: Miscellaneous (Carbohydrates For Hypoglycemia) 15 - 30 gm PO UD PRN PRN Reason: Hypoglycemia Treatment Stop: 08/09/19 19:29 Miscellaneous Information (Consult) 1 ea N/A UD PRN PRN Reason: Consult Stop: 08/09/19 18:34 Miscellaneous Information (Consult Glycemic Management Pharmacy) 1 ea N/A UD PRN PRN Reason: Consult Stop: 08/09/19 18:43 [facility]ivit[facility] ([facility]amin Tab) [facility] Stop: 08/10/19 08:59 Last Admin: 07/11/19 09:53 Dose: 1 tab Documented by: Pantoprazole Sodium (Protonix) 40 mg PO DAILY [facility] Stop: 08/10/19 08:59 Last Admin: 07/11/19 09:55 Dose: 40 mg Documented by: Polyethylene Glycol (Miralax Powder Packet) 17 gm PO DAILY [facility] Stop: 08/10/19 08:59 Last Admin: 07/11/19 09:56 Dose: 17 gm Documented by: Senna/Docusate Sodium (Senokot S) 2 tab PO BID PRN PRN Reason: constipation Stop: 08/09/19 18:44
[2019-07-11] MEDS: CLOPIDOGREL BISULFATE 75 MG TAB PO SCH (20:05)
[2019-07-12] MEDS: LORazepam 0.5 MG TAB PO PRN ×2 (01:51→23:27)
[2019-07-12] MEDS: PIPERACILLIN/TAZOBACTAM 3.375 GM in DEXTROSE 5% 100 ML IV SCH ×3 (04:59→20:50)
[2019-07-12] MEDS: HEPARIN SOD 5,000 UNIT/0.5 ML VIAL SQ SCH ×3 (05:00→21:10)
[2019-07-12] MEDS: ASPIRIN 81 MG ECTAB PO SCH (07:44)
[2019-07-12] MEDS: PANTOprazole 40 MG TAB PO SCH (07:44)
[2019-07-12] MEDS: ISOSORBIDE MONO EXTENDED REL 30 MG TABCR PO SCH (07:44)
[2019-07-12] MEDS: ATORVASTATIN 40 MG TAB PO SCH (07:45)
[2019-07-12] MEDS: CARBIDOPA/LEVODOPA 25/100MG TAB PO SCH ×4 (07:45→20:52)
[2019-07-12] MEDS: AMLODIPINE BESYLATE 5 MG TAB PO SCH (07:45)
[2019-07-12] MEDS: METOPROLOL SUCC 50MG EXT REL TAB PO SCH ×2 (07:46→20:52)
[2019-07-12] MEDS: DOCUSATE SODIUM 100 MG CAP PO SCH ×2 (07:46→20:52)
[2019-07-12] MEDS: MULTIVITAMIN TAB PO SCH (07:46)
[2019-07-12] MEDS: POLYETHYLENE (MIRALAX) 17 GM PACK PO SCH (07:46)
[2019-07-12] MEDS: ESCITALOPRAM OXALATE 20 MG TAB PO SCH (07:47)
[2019-07-12] MEDS: DOXYCYCLINE HYCLATE 100 MG in DEXTROSE 5% 100 ML IV SCH ×2 (08:03→20:49)
[2019-07-12] MEDS: SODIUM CHLORIDE 0.9% 1000ML 1,000 ML IV SCH ×2 (08:03→21:07)
[2019-07-12] MEDS: INSULIN GLARGINE SOLOSTAR 100 UNITS/ML 3 ML PEN SC SCH ×2 (09:34→21:09)
[2019-07-12] MEDS: INSULIN ASPART 100 UNITS/ML 3 ML PEN SC SCH ×4 (09:35→21:09)
--- NOTE | 2019-07-12 11:50 | Pharmacy Report ---
Pharmacy Glycemic Short Note 2 - Date of Service July 12, 2019 - Glycemic Short BSG Results (Last 24 hours): 07/11/19 07/11/19 07/11/19 12:04 17:12 20:38 POC Glucose 171 H 100 H 104 H 07/12/19 07:58 POC Glucose 80 OUTPATIENT ANTIDIABETIC REGIMEN: * Lantus 20 units BID * Novolog SSI * A1c: 11.1% 07/10/19 ASSESSMENT: * Roberta is a 63 yr old T2DM female admitted with hyperglycemia. She is being treated with zosyn and doxycycline for diabetic foot infection. Ortho service consulted for possible right transmetatarsal amputation. * Patient received 59 units of insulin over the past 24 hours * 40 units of basal insulin * 19 units of prandial/correctional insulin * BSGs ranging 100 - 249 over the past 24hrs * Anticipating insulin regimen will need decreased for the next 24hrs d/t : * AM Fasting BSG = 80 Current regimen is basal heavy, therefore Basal insulin needs decreased. I will change Lantus order to dose per scale (25- 40% reduction). * BSGs trending downwards throughout the day (insulin stacking) therefore Loosen CF/CR PLAN FOR INPATIENT GLYCEMIC CONTROL: * Basal insulin - decrease * Lantus per scale SQ BID: - 12 units for BSG < 120 mg/dL - 15 units for BSG 120 mg/dL or more * Bolus insulin - loosen * NovoLog per scale ACHS or Q6hrs while NPO * Goal Range: Low 120 mg/dL - High 150 mg/dL * Correction Factor: 25 mg/dL/unit * Nutritional / Prandial insulin per carb ratio of 1 unit per 8 grams CHO consumed PLAN FOR DISCHARGE:
--- NOTE | 2019-07-12 13:17 | Hospitalist Progress Note ---
Date of Service July 12, 2019 Assessment & Plan (1) Diabetic foot infection: -Admit to [facility] [place] -Patient sent to the ED from orthopedic office for evaluation of hyperglycemia and preparation for possible right transmetatarsal amputation secondary to nonhealing diabetic foot wound -Wound culture from 06/10/2019 grew coag negative staph; patient has not been on any antibiotics -Does not appear septic -will start IV Zosyn and IV doxycycline -Arterial Doppler; no significant obstruction -Blood cultures-pending -Ortho consult-appreciate input and recommendation -Wound care consult -Remains stable without any significant symptoms -Awaiting surgery on Saturday (2) Hyperglycemia: Management as below (3) Diabetes mellitus type 2 with complications: -Blood sugar 391 on presentation labs -No signs of DKA -will give regular insulin 10 units IV x1 dose then managed with Lantus and NovoLog -Pharmacy glycemic consult -Hgb A1c 8.0 03/2019 -Blood sugar seems to be under control (4) SABRINA (acute kidney injury): -Creatinine 1.4 (baseline 1.0) -Likely prerenal due to dehydration from hyperglycemia -IVF, monitor renal functions (5) Hypertension: -BP controlled, continue amlodipine, metoprolol, and isosorbide (6) Coronary atherosclerosis of [place] coronary vessel: -Appears stable, no reports of chest pain -Continue aspirin, Plavix, statin, beta-clyde, nitrate (7) Diastolic CHF: -Appears euvolemic -Monitor volume status closely while receiving IVF -Does not take routine diuretics at home (8) S/P implantation of automatic cardioverter/defibrillator (AICD): -No acute issues (9) Depression: -Patient reports increasing depression symptoms -No suicidal or homicidal thoughts -Mental health consult -Appreciate psychiatric input and recommendation (10) Parkinson disease: -Continue carbidopa-levodopa -No acute parkinsonian symptoms (11) DVT prophylaxis: -SQ heparin Discussed in detail with the patient Subjective 07/11 The patient was seen and examined in telemetry unit She denies any complaints and the blood sugar has been running around 110s No leg pain or foot pain and no fever and/or chills 07/12 Patient was seen and examined in medical floor She denies any complaints and her blood sugar seems to be under control Awaiting surgery on Saturday Review of Systems Review of Systems: All systems reviewed and are unremarkable except as noted below Musculoskeletal: Ulcers right toes without any pain Physical Exam 2 Physical Exam: Lying in bed comfortably Constitutional: WD/WN, vitals as above Eyes: PERRL, conjunctivae normal, anicteric sclerae ENMT: external ear and nose normal, oropharynx normal Respiratory: normal respiratory effort, lungs clear to auscultation Cardiovascular: Rate/Rhythm: regular rate and regular rhythm Vessels: + abnormal peripheral pulses (Pedal pulses diminished) Extremities: no edema Gastrointestinal (Abdomen): normal bowel sounds, soft, nontender, no hepatosplenomegaly Skin: no rashes, warm and dry Neurologic: PERRL, EOMI, accommodation nl, no face palsy, no dysarthria Psychiatric: A+Ox3, euthymic affect Lymphatic: no cervical or axillary lymphadenopathy Results & Data Vital Signs (Past 12 Hours) Vital Signs Temp Pulse Resp BP Pulse Ox 07/12/19 07:20 36.5 C 59 L 16 103/63 100 Medications Administered Current Inpatient Medications Acetaminophen (Tylenol) 650 mg PO Q4H PRN PRN Reason: pain/fever Stop: 08/09/19 18:21 Amlodipine Besylate (Norvasc) 5 mg PO DAILY [facility] Stop: 08/10/19 08:59 Last Admin: 07/12/19 07:45 Dose: 5 mg Documented by: Aspirin (Ecotrin Ectab) 81 mg PO QAM [facility] Stop: 08/10/19 08:59 Last Admin: 07/12/19 07:44 Dose: 81 mg Documented by: Atorvastatin Calcium (Lipitor) 40 mg PO QAM [facility] Stop: 08/10/19 08:59 Last Admin: 07/12/19 07:45 Dose: 40 mg Documented by: Carbidopa/Levodopa (Sinemet 25/100 Mg) 1 tab PO QID [facility] Stop: 08/09/19 20:59 Last Admin: 07/12/19 07:45 Dose: 1 tab Documented by: Clopidogrel Bisulfate (Plavix) 75 mg PO HS [facility] Stop: 08/09/19 20:59 Last Admin: 07/11/19 20:05 Dose: 75 mg Documented by: Dextrose (Dextrose 50%) 25 - 50 ml IV UD PRN; Protocol PRN Reason: Hypoglycemia Protocol Stop: 08/09/19 19:29 Docusate Sodium (Colace) 100 mg PO BID [facility] Stop: 08/09/19 20:59 Last Admin: 12/29/19 07:46 Dose: 100 mg Documented by: Escitalopram Oxalate (Lexapro Tab) 20 mg PO DAILY [facility] Stop: 08/11/19 08:59 Last Admin: 07/12/19 07:47 Dose: 20 mg Documented by: Glucagon (Glucagen) 1 mg IM UD PRN; Protocol PRN Reason: Hypoglycemia Protocol Stop: 08/09/19 19:29 Glucose (Glucose 40%) 15 - 30 gm PO UD PRN; Protocol PRN Reason: Hypoglycemia Protocol Stop: 08/09/19 19:29 Glucose (Dex4 Glucose) 4 - 8 tabs PO UD PRN; Protocol PRN Reason: Hypoglycemia Protocol Stop: 08/09/19 19:29 Heparin Sodium (Porcine) (Heparin Sodium (Porcine)) 5,000 units SQ Q8 [facility] Stop: 08/09/19 21:59 Last Admin: 07/12/19 05:00 Dose: 5,000 units Documented by: Doxycycline Hyclate 100 mg/ (Dextrose) 110 mls @ 50 mls/hr IV Q12H [facility]; Protocol Stop: 07/20/19 19:59 Last Infusion: 07/12/19 11:58 Dose: Infused Documented by: Sodium Chloride (Nss 1000ml) 1,000 mls @ 80 mls/hr IV .[id number] [facility] Stop: 08/09/19 18:44 Last Admin: 07/12/19 08:03 Dose: 80 mls/hr Documented by: Piperacillin Sod/Tazobactam (Sod 3.375 gm/ Dextrose) 115 mls @ 28.75 mls/hr IV Q8H [facility]; Protocol Stop: 07/21/19 00:00 Last Admin: 07/12/19 12:01 Dose: 28.8 mls/hr Documented by: Insulin Aspart (Novolog Flexpen) 0 units SC ACHS [facility] Stop: 08/09/19 19:44 Last Admin: 07/12/19 09:35 Dose: 5 units Documented by: Insulin Glargine (Lantus Solostar Pen) 0 units SC BID [facility]; Protocol Stop: 08/11/19 08:59 Last Admin: 07/12/19 09:34 Dose: 12 units Documented by: Isosorbide Mononitrate (Imdur Extended Rel) 90 mg PO QAM [facility] Stop: 08/10/19 08:59 Last Admin: 07/12/19 07:44 Dose: 90 mg Documented by: Lorazepam (Ativan) 0.5 mg PO HS PRN PRN Reason: Anxiety/Insomnia Stop: 08/11/19 01:29 Last Admin: 07/12/19 01:51 Dose: 0.5 mg Documented by: Metoprolol Succinate (Toprol Xl) 50 mg PO Q12 [facility] Stop: 08/09/19 19:59 Last Admin: 07/12/19 07:46 Dose: Not Given Documented by: Miscellaneous (Carbohydrates For Hypoglycemia) 15 - 30 gm PO UD PRN PRN Reason: Hypoglycemia Treatment Stop: 08/09/19 19:29 Miscellaneous Information (Consult) 1 ea N/A UD PRN PRN Reason: Consult Stop: 08/09/19 18:34 Miscellaneous Information (Consult Glycemic Management Pharmacy) 1 ea N/A UD PRN PRN Reason: Consult Stop: 08/09/19 18:43 Multivitamins (Multivitamin Tab) 1 tab PO QAM [facility] Stop: 08/10/19 08:59 Last Admin: 07/12/19 07:46 Dose: 1 tab Documented by: Pantoprazole Sodium (Protonix) 40 mg PO DAILY [facility] Stop: 08/10/19 08:59 Last Admin: 07/12/19 07:44 Dose: 40 mg Documented by: Polyethylene Glycol (Miralax Powder Packet) 17 gm PO DAILY [facility] Stop: 08/10/19 08:59 Last Admin: 07/12/19 07:46 Dose: 17 gm Documented by: Senna/Docusate Sodium (Senokot S) 2 tab PO BID PRN PRN Reason: constipation Stop: 08/09/19 18:44
[2019-07-12] MEDS: CLOPIDOGREL BISULFATE 75 MG TAB PO SCH (20:52)
[2019-07-13] MEDS: PIPERACILLIN/TAZOBACTAM 3.375 GM in DEXTROSE 5% 100 ML IV SCH ×3 (03:15→19:32)
[2019-07-13] MEDS: HEPARIN SOD 5,000 UNIT/0.5 ML VIAL SQ SCH (05:39)
[2019-07-13 08:05] LABS: Hematocrit (blood only) 32.4 % (37-47); Hemoglobin 10.3 g/dL (12.0-16.0); Mean Corpuscular Hemoglobin 28.1 pg (25-34); Mean Corpuscular Hgb Conc 31.8 g/dL (32-36); Mean Corpuscular Volume 88.5 fL (80-100); Mean Platelet Volume 9.6 fL (7.4-10.4); Platelet Count 230 K/uL (130-400); RDW Coefficient of Variation 12.7 % (11.5-14.5); RDW Standard Deviation 41.2 fL (36.4-46.3); Red Blood Count 3.66 M/uL (4.2-5.4); White Blood Count 9.31 K/uL (4.8-10.8)
[2019-07-13 08:33] LABS: Partial Thromboplastin Ratio 1.8
[2019-07-13 08:44] LABS: Partial Thromboplastin Time 49.5 Seconds (21.0-31.0)
[2019-07-13] MEDS: DOXYCYCLINE HYCLATE 100 MG in DEXTROSE 5% 100 ML IV SCH ×2 (08:49→19:35)
[2019-07-13] MEDS: METOPROLOL SUCC 50MG EXT REL TAB PO SCH ×2 (08:50→20:13)
[2019-07-13] MEDS: ESCITALOPRAM OXALATE 20 MG TAB PO SCH (08:50)
[2019-07-13] MEDS: MULTIVITAMIN TAB PO SCH (08:50)
[2019-07-13] MEDS: ATORVASTATIN 40 MG TAB PO SCH (08:50)
[2019-07-13] MEDS: ISOSORBIDE MONO EXTENDED REL 30 MG TABCR PO SCH (08:50)
[2019-07-13] MEDS: AMLODIPINE BESYLATE 5 MG TAB PO SCH (08:50)
[2019-07-13] MEDS: ASPIRIN 81 MG ECTAB PO SCH (08:52)
[2019-07-13] MEDS: PANTOprazole 40 MG TAB PO SCH (08:52)
[2019-07-13] MEDS: DOCUSATE SODIUM 100 MG CAP PO SCH ×2 (08:52→20:11)
[2019-07-13] MEDS: CARBIDOPA/LEVODOPA 25/100MG TAB PO SCH ×4 (08:52→20:11)
[2019-07-13] MEDS: SODIUM CHLORIDE 0.9% 1000ML 1,000 ML IV SCH ×2 (08:53→20:18)
[2019-07-13] MEDS: INSULIN ASPART 100 UNITS/ML 3 ML PEN SC SCH ×4 (09:56→20:16)
[2019-07-13] MEDS: POLYETHYLENE (MIRALAX) 17 GM PACK PO SCH (09:56)
--- NOTE | 2019-07-13 11:45 | Pharmacy Report ---
Glycemic Control Progress Note - Date of Service July 13, 2019 - Scope Glycemic Pharmacist consulted for glycemic control to write orders per [facility] inpatient glycemic control protocol. - Objective Accuchecks BSG(last 24 hours):: 07/12/19 07/12/19 07/12/19 11:58 17:07 20:27 POC Glucose 143 H 204 H 176 H 07/13/19 07:54 POC Glucose 76 HbA1c:: Hemoglobin A1c 11.1 % (4.5-5.6) H 07/10/19 17:05 - Recent Pertinent Medications The patient is currently receiving: * Basal insulin: Lantus 12-15 units every 12 hours * Correctional Insulin: Novolog Correction per scale ACHS Goal Range: Low 120 mg/dL - High 150 mg/dL Correction Factor: 25 mg/dL/unit * Prandial insulin: Per carb ratio of 1 unit per 8 grams CHO consumed - Outpatient Anti-Diabetic Meds Lantus 20 units BID plus Novolog sliding scale - Assessment & Plan ASSESSMENT: * See progress note from 07/12/19 for more background info, in short: * Pt receiving SQ basal bolus insulin regimen for hyperglycemia secondary to baseline DM (outpatient regimen on hold),stress/infection (on Zosyn and doxycycline). * Patient is currently receiving an average of 51 units of insulin per day * 27 units of basal insulin * 24 units of prandial/correctional insulin * BSGs ranging 80 - 204 mg/dl over the past 24hrs * Changes needed to insulin regimen: * AM Fasting BSG = 76 mg/dl. This is below goal range for patient based on inpatient targets and co-morbidities. This may be reflective of Lantus dosing from 07/11 when patient received 40 units. This is obviously too much expect patient to require around 30 units. As per [employer] extension educator note, will push towards once daily Lantus starting today with dinner. Patient NPO for procedure so hold Lantus today. * Post-prandial BSGs trended upwards yesterday. Tighten. * Total daily dose = 50 units. * Additional notes / comments: PLAN FOR INPATIENT GLYCEMIC CONTROL: * Changing Lantus to 25 units SQ HS (20 units if BSG less than 160 mg/dL) * TIGHTENING correction factor to 20 mg/dl/unit * TIGHTENING carb ratio to 1 unit per 7 grams CHO consumed * Continuing goal range of Low 110 mg/dL - High 140 mg/dL * Please note that the plan above was derived based on current level of insulin resistance and hospital stress. These recommendations are appropriate for inpatient admission only. Plan of care upon discharge will need to be reassessed to avoid potential outpatient hypo/hyperglycemia. Thank you.
--- NOTE | 2019-07-13 16:03 | Hospitalist Progress Note ---
Date of Service July 13, 2019 Assessment & Plan (1) Diabetic foot infection: -Admit to [facility] -Patient sent to the ED from orthopedic office for evaluation of hyperglycemia and preparation for possible right transmetatarsal amputation secondary to nonhealing diabetic foot wound -Wound culture from 06/10/2019 grew coag negative staph; patient has not been on any antibiotics -Does not appear septic -will start IV Zosyn and IV doxycycline -Arterial Doppler; no significant obstruction -Blood cultures-pending -Ortho consult-appreciate input and recommendation -Wound care consult-appreciate input and recommendation -Remains stable without any significant symptoms -We will have proposed surgery tomorrow (2) Hyperglycemia: Management as below (3) Diabetes mellitus type 2 with complications: -Blood sugar 391 on presentation labs -No signs of DKA -will give regular insulin 10 units IV x1 dose then managed with Lantus and NovoLog -Pharmacy glycemic consult -Hgb A1c 8.0 03/2019 -Blood sugar seems to be under control (4) SABRINA (acute kidney injury): -Creatinine 1.4 (baseline 1.0) -Likely prerenal due to dehydration from hyperglycemia -IVF, monitor renal functions -Creatinine is improved at 1.17 today (5) Hypertension: -BP controlled, continue amlodipine, metoprolol, and isosorbide (6) Coronary atherosclerosis of [place] coronary vessel: -Appears stable, no reports of chest pain -Continue aspirin, Plavix, statin, beta-clyde, nitrate (7) Diastolic CHF: -Appears euvolemic -Monitor volume status closely while receiving IVF -Does not take routine diuretics at home (8) S/P implantation of automatic cardioverter/defibrillator (AICD): -No acute issues (9) Depression: -Patient reports increasing depression symptoms -No suicidal or homicidal thoughts -Mental health consult -Appreciate psychiatric input and recommendation (10) Parkinson disease: -Continue carbidopa-levodopa -No acute parkinsonian symptoms (11) DVT prophylaxis: -SQ heparin Discussed in detail with the patient Subjective 07/11 The patient was seen and examined in telemetry unit She denies any complaints and the blood sugar has been running around 110s No leg pain or foot pain and no fever and/or chills 07/12 Patient was seen and examined in medical floor She denies any complaints and her blood sugar seems to be under control Awaiting surgery on Friday 07/13 The patient was seen and examined in the medical floor She remains stable without any symptoms Her blood sugar remains controlled Waiting for proposed surgery tomorrow Review of Systems Review of Systems: All systems reviewed and are unremarkable except as noted below Musculoskeletal: Ulcers right toes without any pain Physical Exam Physical Exam: Lying in bed comfortably Constitutional: WD/WN, vitals as above Eyes: PERRL, conjunctivae normal, anicteric sclerae ENMT: external ear and nose normal, oropharynx normal Respiratory: normal respiratory effort, lungs clear to auscultation Cardiovascular: Rate/Rhythm: regular rate and regular rhythm Vessels: + abnormal peripheral pulses (Pedal pulses diminished) Extremities: no edema Gastrointestinal (Abdomen): normal bowel sounds, soft, nontender, no hepatosplenomegaly Musculoskeletal: Please see the wound image. Skin: no rashes, warm and dry Neurologic: PERRL, EOMI, accommodation nl, no face palsy, no dysarthria Psychiatric: A+Ox3, euthymic affect Lymphatic: no cervical or axillary lymphadenopathy Results & Data Vital Signs (Past 12 Hours) Vital Signs Temp Pulse Pulse Resp BP Pulse Ox 07/13/19 15:30 37.4 C 60 16 95/60 L 95 07/13/19 07:19 36.9 C 61 94 H 105/65 94 Laboratory Results Short CBC 07/13/19 Range/Units 07:48 WBC 9.31 (4.8-10.8) K/uL Hgb 10.3 L (12.0-16.0) g/dL Hct 32.4 L (37-47) % Plt Count 230 (130-400) K/uL Medications Administered Current Inpatient Medications Acetaminophen (Tylenol) 650 mg PO Q4H PRN PRN Reason: pain/fever Stop: 08/09/19 18:21 Amlodipine Besylate (Norvasc) 5 mg PO DAILY [facility] Stop: 08/10/19 08:59 Last Admin: 07/13/19 08:50 Dose: 5 mg Documented by: Aspirin (Ecotrin Ectab) 81 mg PO QAM [facility] Stop: 08/10/19 08:59 Last Admin: 07/13/19 08:52 Dose: 81 mg Documented by: Atorvastatin Calcium (Lipitor) 40 mg PO QAM [facility] Stop: 08/10/19 08:59 Last Admin: 07/13/19 08:50 Dose: 40 mg Documented by: Carbidopa/Levodopa (Sinemet 25/100 Mg) 1 tab PO QID [facility] Stop: 08/09/19 20:59 Last Admin: 07/13/19 13:16 Dose: 1 tab Documented by: Clopidogrel Bisulfate (Plavix) 75 mg PO HS [facility] Stop: 08/09/19 20:59 Last Admin: 07/12/19 20:52 Dose: 75 mg Documented by: Dextrose (Dextrose 50%) 25 - 50 ml IV UD PRN; Protocol PRN Reason: Hypoglycemia Protocol Stop: 08/09/19 19:29 Docusate Sodium (Colace) 100 mg PO BID [facility] Stop: 08/09/19 20:59 Last Admin: 07/13/19 08:52 Dose: 100 mg Documented by: Escitalopram Oxalate (Lexapro Tab) 20 mg PO DAILY [facility] Stop: 08/11/19 08:59 Last Admin: 07/13/19 08:50 Dose: 20 mg Documented by: Glucagon (Glucagen) 1 mg IM UD PRN; Protocol PRN Reason: Hypoglycemia Protocol Stop: 08/09/19 19:29 Glucose (Glucose 40%) 15 - 30 gm PO UD PRN; Protocol PRN Reason: Hypoglycemia Protocol Stop: 08/09/19 19:29 Glucose (Dex4 Glucose) 4 - 8 tabs PO UD PRN; Protocol PRN Reason: Hypoglycemia Protocol Stop: 08/09/19 19:29 Heparin Sodium (Porcine) (Heparin Sodium (Porcine)) 5,000 units SQ Q8 [facility] Stop: 08/09/19 21:59 Last Admin: 07/13/19 05:39 Dose: 5,000 units Documented by: Doxycycline Hyclate 100 mg/ (Dextrose) 110 mls @ 50 mls/hr IV Q12H [facility]; Protocol Stop: 07/20/19 19:59 Last Infusion: 07/13/19 11:49 Dose: Infused Documented by: Sodium Chloride (Nss 1000ml) 1,000 mls @ 80 mls/hr IV .[id number] [facility] Stop: 08/09/19 18:44 Last Admin: 07/13/19 08:53 Dose: 80 mls/hr Documented by: Piperacillin Sod/Tazobactam (Sod 3.375 gm/ Dextrose) 115 mls @ 28.75 mls/hr IV Q8H [facility]; Protocol Stop: 07/21/19 00:00 Last Admin: 07/13/19 13:15 Dose: 28.8 mls/hr Documented by: Cefazolin Sodium (Ancef 2000mg) 2,000 mg in 15 mls @ 3.75 mls/min IV PREOP ONE Stop: 07/14/19 06:03 Insulin Aspart (Novolog Flexpen) 0 units SC ACHS [facility] Stop: 08/09/19 19:44 Last Admin: 07/13/19 13:08 Dose: 7 units Documented by: Insulin Glargine (Lantus Solostar Pen) 22 units SC HS [facility]; Protocol Stop: 08/12/19 16:59 Isosorbide Mononitrate (Imdur Extended Rel) 90 mg PO QAM [facility] Stop: 08/10/19 08:59 Last Admin: 07/13/19 08:50 Dose: 90 mg Documented by: Lorazepam (Ativan) 0.5 mg PO HS PRN PRN Reason: Anxiety/Insomnia Stop: 08/11/19 01:29 Last Admin: 07/12/19 23:27 Dose: 0.5 mg Documented by: Metoprolol Succinate (Toprol Xl) 50 mg PO Q12 [facility] Stop: 08/09/19 19:59 Last Admin: 07/13/19 08:50 Dose: 50 mg Documented by: Miscellaneous (Carbohydrates For Hypoglycemia) 15 - 30 gm PO UD PRN PRN Reason: Hypoglycemia Treatment Stop: 08/09/19 19:29 Miscellaneous Information (Consult) 1 ea N/A UD PRN PRN Reason: Consult Stop: 08/09/19 18:34 Miscellaneous Information (Consult Glycemic Management Pharmacy) 1 ea N/A UD PRN PRN Reason: Consult Stop: 08/09/19 18:43 [facility]it[facility] ([facility]amin [facility]) [facility] Stop[facility] 08/10/19 08:59 Last Admin: 07/13/19 08:50 Dose: 1 tab Documented by: Pantoprazole Sodium (Protonix) 40 mg PO DAILY [facility] Stop: 08/10/19 08:59 Last Admin: 07/13/19 08:52 Dose: 40 mg Documented by: Polyethylene Glycol (Miralax Powder Packet) 17 gm PO DAILY [facility] Stop: 08/10/19 08:59 Last Admin: 07/13/19 09:56 Dose: Not Given Documented by: Senna/Docusate Sodium (Senokot S) 2 tab PO BID PRN PRN Reason: constipation Stop: 08/09/19 18:44
--- NOTE | 2019-07-13 16:10 | Progress Note ---
DATE: 07/13/2019 She has been admitted to the hospital. I am familiar with her situation from outpatient visit last Saturday. Currently on IV antibiotics. I have written to hold her heparin. She has been afebrile. Vital signs are stable. Her white count is normal. Inspecting the foot, swelling is less. There is no erythema. There is a black discoloration primarily of the second toe and less so of the great toe. The great toe is fairly diffusely black especially on its plantar medial aspect. There are small ulcers in between the third and fourth toes. Dorsalis pedis pulse is trace. There is ulceration of the great toe and second toe. Informed consent has been obtained. She will be n.p.o. after midnight. All results of the arterial ultrasound are noted showing flow into the feet with ABIs of approximately 1. I think she has likely small vessel disease with ischemia of the toes. Given the situation with the first and second toes, this would require removal I think back into the metatarsal to get adequate soft tissue coverage. I think to have an even foot, we would proceed with a transmetatarsal amputation. She is low demand. We will add Achilles tendon lengthening as well. She has booked into the OR for tomorrow.
[2019-07-13] MEDS ORDERED: INSULIN GLARGINE SOLOSTAR 100 UNITS/ML 3 ML PEN SC SCH ×2 (17:00)
[2019-07-13] MEDS: CLOPIDOGREL BISULFATE 75 MG TAB PO SCH (20:18)
[2019-07-14] MEDS ORDERED: Nursing to Pharmacy Communication ONE ×2 (01:45→10:34)
[2019-07-14] MEDS: PIPERACILLIN/TAZOBACTAM 3.375 GM in DEXTROSE 5% 100 ML IV SCH ×3 (03:49→21:25)
[2019-07-14] MEDS ORDERED: INSULIN ASPART 100 UNITS/ML 3 ML PEN SC SCH (06:00)
[2019-07-14] MEDS ORDERED: CEFAZOLIN 2000MG 2,000 MG/15 ML SYR IV ONE (06:00)
[2019-07-14 06:23] LABS: Partial Thromboplastin Ratio 0.9; Partial Thromboplastin Time 24.9 Seconds (21.0-31.0)
[2019-07-14] MEDS ORDERED: ROPIVACAINE 0.5% 5 MG/ML 30 ML VIAL ONE (06:31)
[2019-07-14] MEDS ORDERED: BACITRACIN INJ 50,000 UNIT VIAL ONE (06:38)
[2019-07-14] MEDS ORDERED: BUPIVACAINE 0.5 % 5 MG/1 ML MPF 30ML VIAL ONE (06:38)
[2019-07-14] MEDS ORDERED: GLYCOPYRROLATE 0.2 MG/ML VIAL ONE (06:44)
[2019-07-14] MEDS ORDERED: MIDAZOLAM HCL 1 MG/ML 2ML VIAL ONE (06:44)
[2019-07-14] MEDS ORDERED: LIDOCAINE HCL 2% 2 ML VIAL/AMP(20MG/ML) INFIL ONE (06:44)
[2019-07-14] MEDS ORDERED: NEOSTIGMINE METHYLSULFATE 5 MG/5 ML SYR ONE (06:44)
[2019-07-14] MEDS ORDERED: PROPOFOL IV EMULSION 10 MG/ML 20 ML VIAL IV ONE (06:44)
[2019-07-14] MEDS ORDERED: fentaNYL citrate 100 MCG/2 ML VIAL ONE (06:44)
[2019-07-14] MEDS ORDERED: ONDANSETRON INJ 2 MG/ML 2 ML VIAL ONE (06:44)
[2019-07-14] MEDS ORDERED: DEXAMETHASONE SOD INJ 4 MG/ML VIAL ONE (06:44)
--- NOTE | 2019-07-14 06:44 | Anesthesiology Consultation ---
Date of Service July 14, 2019 Assessment & Plan (1) Encounter for pre-operative examination: Chart Review Chart Review: Acceptable Risk for Surgery and Patient NOT seen in Pre Admission Testing Consults Requested none History Surgery Operation Date: 07/14/19 07:00 Proposed Procedures p Right Foot Transmetatarsal Amputation, - Robert Quiros MD s Percutaneous Achilles Tendon Lengthening - Robert Quiros MD Height/Weight Height: 5 ft 2 in Weight: 75.1 kg Allergies Allergy/AdvReac Type Severity Reaction Status Date / Time bee venom protein (honey bee) Allergy Severe SWELLING Verified 07/14/19 06:37 lidocaine Allergy Severe ANAPHYLAXIS Verified 07/14/19 06:37 morphine Allergy Mild itching Verified 07/14/19 06:37 tramadol Allergy Mild ITCHING Verified 07/14/19 06:37 trazodone Allergy Mild ITCHING Verified 07/14/19 06:37 Medications Home Medications Medication Instructions Recorded Confirmed Last Taken atorvastatin 40 mg PO QAM 04/02/18 07/10/19 02/24/19 clopidogrel 75 mg PO HS 04/02/18 07/10/19 02/23/19 docusate sodium [Colace] 100 mg PO BID 04/02/18 07/10/19 02/24/19 isosorbide mononitrate 90 mg PO QAM 04/02/18 07/10/19 02/24/19 nitroglycerin 0.4 mg SUBLINGUAL DIRECTED PRN 04/02/18 07/10/19 Unknown ondansetron 4 mg TRANSLINGUAL Q8H PRN 04/02/18 07/10/19 Unknown pantoprazole 40 mg PO DAILY 04/02/18 07/10/19 02/24/19 aspirin 81 mg PO QAM 05/02/18 07/10/19 02/24/19 albuterol sulfate 2 puff INHALATION Q4H PRN 08/21/18 07/10/19 Unknown insulin aspart U-100 See Rx Instructions .ROUTE .COMPLEX 08/21/18 07/10/19 Unknown insulin glargine 20 units SUBCUT BID 08/21/18 07/10/19 02/24/19 metoprolol succinate 50 mg PO Q12H 08/21/18 07/10/19 Unknown sennosides-docusate sodium 2 tab PO BID PRN #30 tab 01/21/19 07/10/19 Unknown [Senokot-S] ipratropium bromide 0.03 % nasal 2 sprays INTNAS TID 02/06/19 07/10/19 02/24/19 spray metronidazole 0.75 % topical cream 1 appln TOPICAL DAILY gm 02/06/19 07/10/19 Unknown multivitamin 1 tab PO QAM 02/06/19 07/10/19 02/24/19 carbidopa 25 mg-levodopa 100 mg 1 tab PO QID #120 tab 02/26/19 07/10/19 Unknown tablet amlodipine 5 mg PO DAILY 07/10/19 07/10/19 Unknown escitalopram oxalate 15 mg PO DAILY 07/10/19 07/10/19 Unknown polyethylene glycol 3350 [Miralax] 17 gm PO DAILY 07/10/19 07/10/19 Unknown Active Medications Generic Name Dose Route Start Last Admin Trade Name Freq PRN Reason Stop Dose Admin Amlodipine Besylate 5 mg 07/11/19 09:00 07/13/19 08:50 Norvasc PO 08/10/19 08:59 5 mg DAILY YANG Administration Aspirin 81 mg 07/11/19 09:00 07/13/19 08:52 Ecotrin Ectab PO 08/10/19 08:59 81 mg QAM YANG Administration Atorvastatin Calcium 40 mg 07/11/19 09:00 07/13/19 08:50 Lipitor PO 08/10/19 08:59 40 mg QAM YANG Administration Carbidopa/Levodopa 1 tab 07/10/19 21:00 07/13/19 20:11 Sinemet 25/100 Mg PO 08/09/19 20:59 1 tab QID YANG Administration Clopidogrel Bisulfate 75 mg 07/10/19 21:00 07/13/19 20:18 Plavix PO 08/09/19 20:59 75 mg HS YANG Administration Docusate Sodium 100 mg 07/10/19 21:00 07/13/19 20:11 Colace PO 08/09/19 20:59 100 mg BID YANG Administration Escitalopram Oxalate 20 mg 07/12/19 09:00 07/13/19 08:50 Lexapro Tab PO 08/11/19 08:59 20 mg DAILY YANG Administration Heparin Sodium (Porcine) 5,000 units 07/10/19 22:00 07/13/19 05:39 Heparin Sodium (Porcine) SQ 08/09/19 21:59 5,000 units Q8 YANG Administration Doxycycline Hyclate 100 mg/ 110 mls @ 50 mls/hr 07/10/19 20:00 07/13/19 21:48 Dextrose IV 07/20/19 19:59 Infused Q12H YANG Infusion Protocol Sodium Chloride 1,000 mls @ 80 mls/hr 07/10/19 18:45 07/13/19 21:48 Nss 1000ml IV 08/09/19 18:44 80 mls/hr .[id number] YANG Infusion Piperacillin Sod/Tazobactam 115 mls @ 28.75 mls/hr 07/11/19 00:00 07/14/19 03:49 Sod 3.375 gm/ Dextrose IV 07/21/19 00:00 28.8 mls/hr Q8H YANG Administration Protocol Insulin Aspart 0 units 07/14/19 06:00 07/14/19 06:02 Novolog Flexpen SC 08/13/19 05:59 Not Given Q6 YANG Insulin Glargine 22 units 07/13/19 17:00 07/13/19 18:19 Lantus Solostar Pen SC 08/12/19 16:59 22 units HS YANG Administration Protocol Isosorbide Mononitrate 90 mg 07/11/19 09:00 07/13/19 08:50 Imdur Extended Rel PO 08/10/19 08:59 90 mg QAM YANG Administration Lorazepam 0.5 mg 07/12/19 01:30 07/12/19 23:27 Ativan PO 08/11/19 01:29 0.5 mg HS PRN Administration Anxiety/Insomnia Metoprolol Succinate 50 mg 07/10/19 20:00 07/13/19 20:13 Toprol Xl PO 08/09/19 19:59 50 mg Q12 YANG Administration Multivitamins 1 tab 07/11/19 09:00 07/13/19 08:50 Multivitamin Tab PO 08/10/19 08:59 1 tab QAM YANG Administration Pantoprazole Sodium 40 mg 07/11/19 09:00 07/13/19 08:52 Protonix PO 08/10/19 08:59 40 mg DAILY YANG Administration Polyethylene Glycol 17 gm 07/11/19 09:00 07/13/19 09:56 Miralax Powder Packet PO 08/10/19 08:59 Not Given DAILY YANG Past Medical History Medical History Asthma (Chronic) Coronary atherosclerosis of [place] coronary vessel (Chronic 08/24/11) s/p CABG (SVG to OM, SVT to OM2, MEHTA to LAD) on 04/05/1998 s/p HEIDY x2 (LM and LAD) in 06/2012" Depression (Chronic) Diabetes mellitus type 2 with complications (Chronic) Diabetic nephropathy (Chronic) Diabetic retinopathy (Chronic) Diastolic CHF (Chronic) GERD (gastroesophageal reflux disease) (Chronic) Hypertension (Chronic) Obesity, Class II, BMI 35-39.9, with comorbidity (Chronic) Osteoarthritis (Chronic) Parkinson disease (Chronic) Polymyalgia rheumatica (Chronic) 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 Exercise / Class Metabolic Activity III < 4 Walking/Shop/Light housework Past Family History Family History Mother Heart disease Hypertension Brother Asthma Brother Diabetes Father Diabetes Past Surgical History Surgical History H/O eye surgery (Chronic) H/O: hysterectomy (Chronic) SUZY History of appendectomy (Chronic) History of cholecystectomy (Chronic) S/P implantation of automatic cardioverter/defibrillator (AICD) (Chronic) S/P triple vessel bypass (Chronic) 1997 Past Anesthesia History No Hx of Anesthesia Complications and No Family Hx of Anesthesia Complications History of PONV No Hx of PONV and No Hx of Motion Sickness Social History Smoking Status: Former smoker Do You Dip or Chew Tobacco: No Hx Alcohol Use: Yes Alcohol type: wine alcohol intake frequency: holidays/special occasions only Hx Substance Use: No substance use type: does not use Physical Exam Vital Signs Last Vital Signs Temp 37.3 C 07/14/19 06:10 Pulse 64 07/14/19 06:10 Resp 16 07/14/19 06:10 BP 116/67 07/14/19 06:10 Pulse Ox 96 07/14/19 06:10 Testing Laboratory Results 07/13/19 07:48 07/11/19 05:44 PT 10.1 Seconds (9.0-12.0) 07/10/19 17:05 INR 1.0 (0.9-1.1) 07/10/19 17:05 APTT 24.9 Seconds (21.0-31.0) 07/14/19 05:40 Hemoglobin A1c 11.1 % (4.5-5.6) H 07/10/19 17:05 Urine Color Yellow 07/11/19 02:11 Urine Appearance Turbid (Clear) A 07/11/19 02:11 Urine pH 5.5 (4.5-7.5) 07/11/19 02:11 Ur Specific [place] 1.011 (1.000-1.030) 07/11/19 02:11 Urine Protein Trace (Negative) H 07/11/19 02:11 Urine Glucose (UA) 1+ (Negative) H 07/11/19 02:11 Urine Ketones Negative (Negative) 07/11/19 02:11 Urine Nitrite Negative (Negative) 07/11/19 02:11 Ur Leukocyte Esterase 3+ (Negative) H 07/11/19 02:11 Urine WBC (Auto) >30 /hpf (0-5) H 07/11/19 02:11 Urine RBC (Auto) 0-4 /hpf (0-4) 07/11/19 02:11 U Hyaline Cast (Auto) 1-5 /lpf (0-5) 07/11/19 02:11 U Epithel Cells (Auto) 20-30 /lpf (0-5) H 07/11/19 02:11 Urine Bacteria (Auto) Negative (Negative) 07/11/19 02:11 07/11/19 02:11 Urine Culture - Final Urine,Clean Catch Yeast not Unique albicans 07/10/19 20:09 Aerobic Blood Culture - Preliminary Blood No growth in Aerobic bottle after 48 hours. Anaerobic Blood Culture - Preliminary No growth in Anaerobic bottle after 48 hours. 07/10/19 17:05 Aerobic Blood Culture - Preliminary Blood No growth in Aerobic bottle after 48 hours. Anaerobic Blood Culture - Preliminary No growth in Anaerobic bottle after 48 hours. 07/14/19 07/13/19 06:31 20:13 POC Glucose 72 136 H
--- NOTE | 2019-07-14 06:53 | History & Physical Bridge Note ---
Date of Service July 14, 2019 History & Physical Bridge Note I have examined the patient, reviewed the History & Physical and in the interval since the performance of the History & Physical I have noted the following changes of clinical significance: no changes noted
[2019-07-14] MEDS ORDERED: ONDANSETRON INJ 2 MG/ML 2 ML VIAL IV PRN ×2 (07:02→09:33)
[2019-07-14] MEDS ORDERED: ePHEDrine sulfate 50 MG/ML AMP IV PRN (07:02)
[2019-07-14] MEDS ORDERED: ATROPINE SULFATE 0.1 MG/ML 10ML SYR IV PRN (07:02)
[2019-07-14] MEDS ORDERED: ROCURONIUM BROMIDE 10 MG/ML 5 ML VIAL ONE (08:43)
--- NOTE | 2019-07-14 09:08 | Fluoroscopy Report ---
INTRAOPERATIVE RADIOGRAPHS CLINICAL HISTORY: Metatarsal and dilatation of the right foot. Fluoroscopy time: 23 seconds. FINDINGS: 2 spot fluoroscopic views of the right forefoot are presented. There has been amputation of the forefoot through the metatarsal shafts. Overlying soft tissue edema is noted. IMPRESSION: Intraoperative images from right forefoot amputation as above. Electronically signed by: Diego Ricardo M.D. 07/14/2019 9:06 AM
[2019-07-14] MEDS ORDERED: MAGNESIUM HYDROXIDE SUSP 30 ML UDC PO PRN (09:33)
[2019-07-14] MEDS ORDERED: NALOXONE HCL 0.4 MG/1 ML VIAL/CARP IV PRN (09:33)
[2019-07-14] MEDS ORDERED: METOCLOPRAMIDE HCL INJ 5 MG/ML 2 ML VIAL IV PRN (09:33)
[2019-07-14] MEDS ORDERED: HYDROmorphone INJ 0.5 MG/0.5 ML SYR IV PRN (09:33)
[2019-07-14] MEDS ORDERED: DiphenhydrAMINE HCL 50 MG/ML VIAL IV PRN (09:33)
[2019-07-14] MEDS ORDERED: bisacodyL 10 MG SUPP PR PRN (09:33)
--- NOTE | 2019-07-14 09:34 | Operative Report ---
Post Operative Report Pre & Post Diagnosis Operation Date: 07/14/19 07:00 Pre-Op Diagnosis: RIGHT DIABETIC FOOT INECTION Post-Op Diagnosis: RIGHT DIABETIC FOOT INECTION I identified the patient and participated in the time-out.: Yes Procedure Operation Date: 07/14/19 07:00 Actual Procedures p Right Foot Transmetatarsal Amputation,(Right) - MD endy Duong Percutaneous Achilles Tendon Lengthening(Right) - Robert Quiros MD Surgeon Robert Quiros MD [employer] Parkinson Estimated Blood Loss 50 Findings Consistent with Post-Op Diagnosis Specimens Culture x1 and amputated forefoot Drains None Anesthesia Type General Complications none Disposition Accompanied Patient To Recovery: No Disposition: Recovery Room Indications Patient 63 years old. She has a diabetic ulceration with gangrene of the right foot. The first and second toes are dysvascular. There are wounds on the third and fourth toes. A transmetatarsal amputation will give her the best healing potential and functional result. She has had ABIs of about 1 and good noninvasive arterial studies preoperatively. Description of Procedure Informed consent obtained. Patient identified. She identified the operative site as the right foot. I marked with my initials. A preop surgical timeout was performed. A preop dose of IV antibiotics was given. She was already on intravenous antibiotics. She was positioned supine on the OR table and a general anesthetic was administered. Tourniquet was applied to the right distal thigh and a bump under the right hip. The leg was pre-scrubbed and prepped and draped with Betadine in the usual sterile fashion. The toes were excluded from the operative field as best as possible. DVT prophylaxis with mechanical devices intraoperatively. She will be placed back on her subcu heparin postoperatively. She is allergic to local anesthetics and they were not used. Preop examination showed a large dried black area on the plantar aspect of the big toe with areas of ischemia on the sides and top. The entire second toe was necrotic. Silverskiold test was positive with the knee more so straight then bent but positive in both ways. A percutaneous lengthening of the Achilles tendon was performed using a 15 blade knife resulting in dorsiflexion just beyond neutral. 3-0 nylon sutures were used to close the skin. The transmetatarsal amputation was planned out using fluoroscopic guidance. A dorsal incision was made at about the midfoot just distal to the amputation le santiago that was desired. This was carried around the plantar forefoot as distal as possible. The incision was carried sharply down to the bone and minimal dissection was performed proximally. Using fluoroscopic guidance the first ray was resected at about its midportion and each subsequent ray was resected a few millimeters proximal to give a nice cascade. They were beveled dorsal distal to plantar proximal. The fifth metatarsal additionally was beveled on its lateral aspect. Bony prominences were removed from all of the metatarsals with a rongeur. The forefoot was then amputated by carrying this distally underneath the metatarsals to complete the amputation preserving a very thick plantar flap. Prior to the start of the procedure the limb was exsanguinated with gravity and the tourniquet inflated to 250 mmHg. Once the foot was resected the tourniquet was let down. There was good bleeding throughout the foot and meticulous hemostasis was done with electrocautery. The flexor and extensor tendons were drawn into the wound and amputated and allowed to retract. Gloves were changed once the foot was removed. A culture was obtained from the dorsal gangrenous portion of the second toe after incising it down to the level of the bone and using a swab. This was sent for Gram stain aerobic anaerobic. The amputated foot was sent for permanent. 3 L of pulse lavage were utilized. This was followed by a loosely approximated closure with 3-0 nylon. Near far far near stitches and simple sutures were utilized. A soft sterile dressing was applied Xeroform 4 x 4's ABDs and a well- padded cast padding layer. A double posterior splint and a single anterior slab splint were applied covering over the amputation site. The knee ankle was held in neutral position. She was then awakened from anesthesia without difficulty and taken to the recovery room in stable condition. Specimens were as mentioned above. Counts were correct blood loss was estimated to be 50 cc. At the conclusion the operation spoke patient's sister and informed her of my findings and postoperative instructions were given. The plan for now is to have her nonweightbearing continue antibiotics and resume anticoagulation. We would like to change her dressing on postop day [address] into a total contact cast or a fracture boot and allow her to weight-bear as tolerated. She will need nursing home. Capsule Maker images were obtained showing a good cascade on the AP view and no bony prominences on the lateral view. These were sent for permanent. I attest to the content of the Intraoperative Record and any orders documented therein. Any exceptions are noted below.
[2019-07-14] MEDS: fentaNYL citrate 100 MCG/2 ML VIAL IV PRN ×2 (09:36→09:41)
--- NOTE | 2019-07-14 09:39 | Operative Report ---
Post Operative Report Pre & Post Diagnosis Operation Date: 07/14/19 07:00 Pre-Op Diagnosis: RIGHT DIABETIC FOOT INECTION Post-Op Diagnosis: RIGHT DIABETIC FOOT INECTION I identified the patient and participated in the time-out.: Yes Procedure Operation Date: 07/14/19 07:00 Actual Procedures p Right Foot Transmetatarsal Amputation,(Right) - Robert Quiros MD s Percutaneous Achilles Tendon Lengthening(Right) - Robert Quiros MD Surgeon Dr Quiros [employer] Parkinson Estimated Blood Loss 50 Findings Consistent with Post-Op Diagnosis Specimens right foot transmetatarsal amputation Complications none Indications See Dr Quiros operative report for full details. Description of Procedure See Dr Quiros operative report for full details. I was surgical first assistant during entire case to include prepping, draping, limb and instrument handling, wound closure, dressing, splint application. I attest to the content of the Intraoperative Record and any orders documented therein. Any exceptions are noted below. Supervising Physician Co-Signing Physician Notes Attending addendum: The patient was seen and examined in emergency room She was transferred from orthopedics office to the ER for admission to control diabetes before the proposed surgery Denies any symptoms Denies any increasing pain and/or swelling or drainage from the right foot wound On examination Lying in bed without any distress She is obese and hemodynamically stable Chest-clear Heart-S1-S2, regular. No murmur appreciated Abdomen-benign Extremities-trace edema bilaterally Right big and second toe gangrenous, minimal drainage from dorsum of second toe with adjoining swelling of the foot and edema with increasing warmth Admission labs and imaging studies reviewed Has diabetic foot ulcer which required to be surgically amputated Agree with assessment and plan as outlined above by Stefanie Stephenson
[2019-07-14] MEDS: POLYETHYLENE (MIRALAX) 17 GM PACK PO SCH (10:31)
[2019-07-14] MEDS: ISOSORBIDE MONO EXTENDED REL 30 MG TABCR PO SCH (10:31)
[2019-07-14] MEDS: ASPIRIN 81 MG ECTAB PO SCH (10:31)
[2019-07-14] MEDS: ESCITALOPRAM OXALATE 20 MG TAB PO SCH (10:31)
[2019-07-14] MEDS: DOCUSATE SODIUM 100 MG CAP PO SCH ×2 (10:31→21:25)
[2019-07-14] MEDS: AMLODIPINE BESYLATE 5 MG TAB PO SCH (10:31)
[2019-07-14] MEDS: DOXYCYCLINE HYCLATE 100 MG in DEXTROSE 5% 100 ML IV SCH ×3 (10:31→21:06)
[2019-07-14] MEDS: MULTIVITAMIN TAB PO SCH (10:31)
[2019-07-14] MEDS: ATORVASTATIN 40 MG TAB PO SCH (10:31)
[2019-07-14] MEDS: METOPROLOL SUCC 50MG EXT REL TAB PO SCH ×2 (10:32→21:26)
[2019-07-14] MEDS: CARBIDOPA/LEVODOPA 25/100MG TAB PO SCH ×4 (10:32→21:26)
[2019-07-14] MEDS: PANTOprazole 40 MG TAB PO SCH (10:32)
[2019-07-14] MEDS: SODIUM CHLORIDE 0.9% 1000ML 1,000 ML IV SCH ×3 (10:34→21:25)
--- NOTE | 2019-07-14 10:57 | Pharmacy Report ---
Glycemic Control Progress Note - Date of Service July 14, 2019 - Scope Glycemic Pharmacist consulted for glycemic control to write orders per [facility] inpatient glycemic control protocol. - Objective Accuchecks BSG(last 24 hours):: 07/13/19 07/13/19 07/13/19 11:51 17:17 20:13 POC Glucose 130 H 161 H 136 H 07/14/19 07/14/19 07/14/19 05:53 06:31 08:13 POC Glucose 75 72 112 H 07/14/19 09:23 POC Glucose 119 H HbA1c:: Hemoglobin A1c 11.1 % (4.5-5.6) H 07/10/19 17:05 - Recent Pertinent Medications The patient is currently receiving: * Basal insulin: Lantus 22 units every 24 hours * Correctional Insulin: Novolog Correction per scale ACHS Goal Range: Low 110 mg/dL - High 140 mg/dL Correction Factor: 20 mg/dL/unit * Prandial insulin: Per carb ratio of 1 unit per 7 grams CHO consumed - Outpatient Anti-Diabetic Meds Lantus 20 units BID plus Novolog - Assessment & Plan ASSESSMENT: * See progress note from 07/12/19 for more background info, in short: * Pt receiving SQ basal bolus insulin regimen for hyperglycemia secondary to baseline DM (outpatient regimen on hold). Patient POD 0 for foot amputation - currently on Zosyn and doxycycline. * Patient is currently receiving an average of 40 units of insulin per day * 22 units of basal insulin * 18 units of prandial/correctional insulin * BSGs ranging 76 - 161 mg/dl over the past 24hrs * Changes needed to insulin regimen: * AM Fasting BSG = 72 mg/dl. This is below goal range for patient based on inpatient targets and co-morbidities. Therefore Basal insulin will be reduced to 18 units. Patient was only NPO after midnight so trust that trending blood sugar is accurate. * Post-prandial BSGs trended upwards yesterday - tighten carbohydrate ratio. * Total daily dose = 40-50 units. PLAN FOR INPATIENT GLYCEMIC CONTROL: * Decreasing Lantus to 18 units SQ HS * Continuing correction factor of 20 mg/dl/unit * TIGHTENING carb ratio to 1 unit per 6 grams CHO consumed * Continuing goal range of Low 110 mg/dL - High 140 mg/dL RECOMMENDATIONS FOR DISCHARGE: * Per previous diabetes notes, switched patient's Lantus to once daily. Currently receiving about 20 units daily. Reasonable to consider discontinuation on this dose. * If there is concern regarding compliance with Novolog could consider a once weekly GLP-1 agonist such as Ozempic. Would avoid SGLT2 inhibitor as patient has already had amputation. * Please note that the plan above was derived based on current level of insulin resistance and hospital stress. These recommendations are appropriate for inpatient admission only. Plan of care upon discharge will need to be reassessed to avoid potential outpatient hypo/hyperglycemia. Thank you.
[2019-07-14] MEDS: INSULIN ASPART 100 UNITS/ML 3 ML PEN SC SCH ×3 (12:56→21:34)
[2019-07-14] MEDS: ACETAMINOPHEN 500 MG TAB PO SCH ×2 (12:56→21:29)
--- NOTE | 2019-07-14 12:58 | Anesthesiology Progress Note ---
Date of Service July 14, 2019 Anesthesia Post Procedure Vital Signs Vital Signs: Temp Pulse Pulse Pulse Resp BP BP 07/14/19 12:22 65 14 99/65 L 07/14/19 11:20 64 16 106/64 07/14/19 10:45 36.9 C 60 16 102/65 07/14/19 10:15 36.8 C 60 16 94/60 L 07/14/19 10:05 60 14 110/56 L 07/14/19 09:55 36.3 C L 60 14 103/56 L 07/14/19 09:45 63 14 95/52 L 07/14/19 09:35 60 15 101/47 L 07/14/19 09:25 61 14 129/62 07/14/19 09:19 36.3 C L 60 16 163/64 H 07/14/19 06:25 37.1 C 61 18 116/60 07/14/19 06:10 37.3 C 64 16 116/67 07/13/19 23:36 36.6 C 61 16 109/58 L 07/13/19 20:05 64 117/70 07/13/19 15:30 37.4 C 60 16 95/60 L Pulse Ox 07/14/19 12:22 95 07/14/19 11:20 100 07/14/19 10:45 100 07/14/19 10:15 100 07/14/19 10:05 100 07/14/19 09:55 100 07/14/19 09:45 100 07/14/19 09:35 100 07/14/19 09:25 100 07/14/19 09:19 100 07/14/19 06:25 99 07/14/19 06:10 96 07/13/19 23:36 97 07/13/19 20:05 97 07/13/19 15:30 95 Transfer of Care Handoff Completed per policy Notes Mental Status: alert / awake / arousable and participated in evaluation Patient Amnestic to Procedure: Yes Nausea / Vomiting: adequately controlled Pain: adequately controlled Airway Patency, RR, SpO2: stable & adequate BP & HR: stable & adequate Hydration State: stable & adequate Anesthetic Complications: no major complications apparent and Pt Satisfied with anesthetic care
--- NOTE | 2019-07-14 16:01 | Hospitalist Progress Note ---
Date of Service July 14, 2019 Assessment & Plan (1) Diabetic foot infection: -Admit to [facility] -Patient sent to the ED from orthopedic office for evaluation of hyperglycemia and preparation for possible right transmetatarsal amputation secondary to nonhealing diabetic foot wound -Wound culture from 06/10/2019 grew coag negative staph; patient has not been on any antibiotics -Does not appear septic -will start IV Zosyn and IV doxycycline -Arterial Doppler; no significant obstruction -Blood cultures-pending -Ortho consult-appreciate input and recommendation -Wound care consult-appreciate input and recommendation -Remains stable without any significant symptoms -We will continue current antibiotics Status post right foot transmetatarsal amputation and percutaneous Achilles tendon lengthening, POD #0 Management will be as per Ortho Medically remains stable without significant pain (2) Hyperglycemia: Management as below (3) Diabetes mellitus type 2 with complications: -Blood sugar 391 on presentation labs -No signs of DKA -will give regular insulin 10 units IV x1 dose then managed with Lantus and NovoLog -Pharmacy glycemic consult -Hgb A1c 8.0 03/2019 -Blood sugar seems to be under control (4) SABRINA (acute kidney injury): -Creatinine 1.4 (baseline 1.0) -Likely prerenal due to dehydration from hyperglycemia -IVF, monitor renal functions -Creatinine is improved at 1.17 today -We will monitor PRP (5) Hypertension: -BP controlled, continue amlodipine, metoprolol, and isosorbide (6) Coronary atherosclerosis of [place] coronary vessel: -Appears stable, no reports of chest pain -Continue aspirin, Plavix, statin, beta-clyde, nitrate (7) Diastolic CHF: -Appears euvolemic -Monitor volume status closely while receiving IVF -Does not take routine diuretics at home (8) S/P implantation of automatic cardioverter/defibrillator (AICD): -No acute issues (9) Depression: -Patient reports increasing depression symptoms -No suicidal or homicidal thoughts -Mental health consult -Appreciate psychiatric input and recommendation (10) Parkinson disease: -Continue carbidopa-levodopa -No acute parkinsonian symptoms (11) DVT prophylaxis: -SQ heparin Discussed in detail with the patient Subjective 07/11 The patient was seen and examined in telemetry unit She denies any complaints and the blood sugar has been running around 110s No leg pain or foot pain and no fever and/or chills 07/12 Patient was seen and examined in medical floor She denies any complaints and her blood sugar seems to be under control Awaiting surgery on Friday 07/13 The patient was seen and examined in the medical floor She remains stable without any symptoms Her blood sugar remains controlled Waiting for proposed surgery tomorrow 07/14 The patient was seen and examined in the medical floor She is a status post right foot transmetatarsal amputation and percutaneous Achilles tendon lengthening on the right side She denies any significant pain but remains drowsy Denies any other symptoms Review of Systems Review of Systems: All systems reviewed and are unremarkable except as noted below Musculoskeletal: Ulcers right toes without any pain Physical Exam Physical Exam: Lying in bed comfortably Constitutional: WD/WN, vitals as above Eyes: PERRL, conjunctivae normal, anicteric sclerae ENMT: external ear and nose normal, oropharynx normal Respiratory: no respiratory distress Auscultation: lungs clear to auscultation bilaterally Cardiovascular: Rate/Rhythm: regular rate and regular rhythm Vessels: + abnormal peripheral pulses (Pedal pulses diminished) Extremities: no edema Gastrointestinal (Abdomen): normal bowel sounds, soft, nontender, no hepatosplenomegaly Musculoskeletal: Status post right foot surgery in the holding right foot is bandaged Skin: no rashes, warm and dry Neurologic: PERRL, EOMI, accommodation nl, no face palsy, no dysarthria Psychiatric: A+Ox3, euthymic affect Lymphatic: no cervical or axillary lymphadenopathy Results & Data Vital Signs (Past 12 Hours) Vital Signs Temp Pulse Pulse Pulse Resp BP BP 07/14/19 15:30 36.4 C L 60 16 98/61 L 07/14/19 13:36 108/70 07/14/19 13:21 64 14 95/57 L 07/14/19 12:22 65 14 99/65 L 07/14/19 11:20 64 16 106/64 07/14/19 10:45 36.9 C 60 16 102/65 07/14/19 10:15 36.8 C 60 16 94/60 L 07/14/19 10:05 60 14 110/56 L 07/14/19 09:55 36.3 C L 60 14 103/56 L 07/14/19 09:45 63 14 95/52 L 07/14/19 09:35 60 15 101/47 L 07/14/19 09:25 61 14 129/62 07/14/19 09:19 36.3 C L 60 16 163/64 H 07/14/19 06:25 37.1 C 61 18 116/60 07/14/19 06:10 37.3 C 64 16 116/67 Pulse Ox 07/14/19 15:30 98 07/14/19 13:36 07/14/19 13:21 100 07/14/19 12:22 95 07/14/19 11:20 100 07/14/19 10:45 100 07/14/19 10:15 100 07/14/19 10:05 100 07/14/19 09:55 100 07/14/19 09:45 100 07/14/19 09:35 100 07/14/19 09:25 100 07/14/19 09:19 100 07/14/19 06:25 99 07/14/19 06:10 96 Medications Administered Current Inpatient Medications Acetaminophen (Tylenol) 650 mg PO Q4H PRN PRN Reason: pain/fever Stop: 08/09/19 18:21 Acetaminophen (Tylenol) 1,000 mg PO Q8 [facility] Stop: 08/13/19 13:59 Last Admin: 07/14/19 12:56 Dose: 1,000 mg Documented by: Amlodipine Besylate (Norvasc) 5 mg PO DAILY [facility] Stop: 08/10/19 08:59 Last Admin: 07/14/19 10:31 Dose: Not Given Documented by: Aspirin (Ecotrin Ectab) 81 mg PO QAM [facility] Stop: 08/10/19 08:59 Last Admin: 07/14/19 10:31 Dose: Not Given Documented by: Atorvastatin Calcium (Lipitor) 40 mg PO QAM [facility] Stop: 08/10/19 08:59 Last Admin: 07/14/19 10:31 Dose: Not Given Documented by: Bisacodyl (Dulcolax) 10 mg MT DAILY PRN PRN Reason: Constipation Stop: 08/13/19 09:32 Carbidopa/Levodopa (Sinemet 25/100 Mg) 1 tab PO QID [facility] Stop: 08/09/19 20:59 Last Admin: 07/14/19 12:56 Dose: 1 tab Documented by: Clopidogrel Bisulfate (Plavix) 75 mg PO HS [facility] Stop: 08/09/19 20:59 Last Admin: 12/30/19 20:18 Dose: 75 mg Documented by: Dextrose (Dextrose 50%) 25 - 50 ml IV UD PRN; Protocol PRN Reason: Hypoglycemia Protocol Stop: 08/09/19 19:29 Diphenhydramine HCl (Benadryl Capsule) 25 mg PO Q8H PRN PRN Reason: Itching Stop: 08/13/19 09:32 Diphenhydramine HCl (Benadryl) 25 mg IV Q8H PRN PRN Reason: Itching Stop: 08/13/19 09:32 Docusate Sodium (Colace) 100 mg PO BID [facility] Stop: 08/09/19 20:59 Last Admin: 07/14/19 10:31 Dose: Not Given Documented by: Escitalopram Oxalate (Lexapro Tab) 20 mg PO DAILY [facility] Stop: 08/11/19 08:59 Last Admin: 07/14/19 10:31 Dose: Not Given Documented by: Glucagon (Glucagen) 1 mg IM UD PRN; Protocol PRN Reason: Hypoglycemia Protocol Stop: 08/09/19 19:29 Glucose (Glucose 40%) 15 - 30 gm PO UD PRN; Protocol PRN Reason: Hypoglycemia Protocol Stop: 08/09/19 19:29 Glucose (Dex4 Glucose) 4 - 8 tabs PO UD PRN; Protocol PRN Reason: Hypoglycemia Protocol Stop: 08/09/19 19:29 Heparin Sodium (Porcine) (Heparin Sodium (Porcine)) 5,000 units SQ Q8 [facility] Stop: 08/13/19 20:59 Hydromorphone HCl (Dilaudid) 0.5 mg IV Q4H PRN PRN Reason: Pain Stop: 07/28/19 09:32 Doxycycline Hyclate 100 mg/ (Dextrose) 110 mls @ 50 mls/hr IV Q12H [facility]ANG; Protocol Stop: 07/20/19 19:59 Last Infusion: 07/14/19 13:05 Dose: Infused Documented by: Sodium Chloride (Nss 1000ml) 1,000 mls @ 80 mls/hr IV .[id number] YANG Stop: 08/09/19 18:44 Last Admin: 07/14/19 10:34 Dose: Not Given Documented by: Piperacillin Sod/Tazobactam (Sod 3.375 gm/ Dextrose) 115 mls @ 28.75 mls/hr IV Q8H [facility]; Protocol Stop: 07/21/19 00:00 Last Admin: 07/14/19 11:44 Dose: 28.8 mls/hr Documented by: Sodium Chloride (Nss 1000ml) 1,000 mls @ 100 mls/hr IV .Q10H [facility] Stop: 07/15/19 06:00 Last Admin: 07/14/19 10:58 Dose: 100 mls/hr Documented by: Insulin Aspart (Novolog Flexpen) 0 units SC ACHS [facility] Stop: 08/13/19 11:29 Last Admin: 07/14/19 12:56 Dose: 4 units Documented by: Insulin Glargine (Lantus Solostar Pen) 18 units SC [facility]; Protocol Stop: 08/13/19 20:59 Isosorbide Mononitrate (Imdur Extended Rel) 90 mg PO [facility] Stop: 08/10/19 08:59 Last Admin: 07/14/19 10:31 Dose: Not Given Documented by: Lorazepam (Ativan) 0.5 mg PO HS PRN PRN Reason: Anxiety/Insomnia Stop: 08/11/19 01:29 Last Admin: 07/12/19 23:27 Dose: 0.5 mg Documented by: Magnesium Hydroxide (Milk Of Magnesia) 30 ml PO Q6H PRN PRN Reason: Constipation Stop: 08/13/19 09:32 Metoclopramide HCl (Reglan) 10 mg IV Q6H PRN PRN Reason: Nausea And Vomiting Stop: 08/13/19 09:32 Metoprolol Succinate (Toprol Xl) 50 mg PO Q12 [facility] Stop: 08/09/19 19:59 Last Admin: 07/14/19 10:32 Dose: Not Given Documented by: Miscellaneous (Carbohydrates For Hypoglycemia) 15 - 30 gm PO UD PRN PRN Reason: Hypoglycemia Treatment Stop: 08/09/19 19:29 Miscellaneous Information (Consult) 1 ea N/A UD PRN PRN Reason: Consult Stop: 08/09/19 18:34 Miscellaneous Information (Consult Glycemic Management Pharmacy) 1 ea N/A UD PRN PRN Reason: Consult Stop: 08/09/19 18:43 Multivitamins (Multivitamin Tab) 1 tab PO [facility] Stop: 08/10/19 08:59 Last Admin: 07/14/19 10:31 Dose: Not Given Documented by: Naloxone HCl (Narcan) 0.1 mg IV Q5M PRN PRN Reason: Oversedation/Resp Depression Stop: 08/13/19 09:32 Ondansetron HCl (Zofran) 4 mg IV Q6H PRN PRN Reason: Nausea And Vomiting Stop: 08/13/19 09:32 Oxycodone HCl (Roxicodone Immediate Rel) 5 - 10 mg PO Q4H PRN PRN Reason: Pain Stop: 07/28/19 09:32 Pantoprazole Sodium (Protonix) 40 mg PO DAILY [facility] Stop: 08/10/19 08:59 Last Admin: 07/14/19 10:32 Dose: Not Given Documented by: Polyethylene Glycol (Miralax Powder Packet) 17 gm PO DAILY [facility] Stop: 08/10/19 08:59 Last Admin: 07/14/19 10:31 Dose: Not Given Documented by: Senna/Docusate Sodium (Senokot S) 2 tab PO BID PRN PRN Reason: constipation Stop: 08/09/19 18:44 Sennosides (Senokot) 17.2 mg PO HS [facility] Stop: 08/13/19 20:59
[2019-07-14] MEDS ORDERED: DOCUSATE SODIUM 100 MG CAP PO SCH (21:00)
[2019-07-14] MEDS: HEPARIN SOD 5,000 UNIT/0.5 ML VIAL SQ SCH ×3 (21:25→21:43)
[2019-07-14] MEDS: CLOPIDOGREL BISULFATE 75 MG TAB PO SCH (21:26)
[2019-07-14] MEDS: SENNA 8.6 MG TAB PO SCH (21:28)
[2019-07-14] MEDS: INSULIN GLARGINE SOLOSTAR 100 UNITS/ML 3 ML PEN SC SCH (21:34)
[2019-07-15] MEDS: OXYCODONE HCL IR 5 MG TAB (IMMEDIATE RELEASE) PO PRN (00:20)
[2019-07-15] MEDS: PIPERACILLIN/TAZOBACTAM 3.375 GM in DEXTROSE 5% 100 ML IV SCH ×3 (04:32→21:24)
[2019-07-15] MEDS: ACETAMINOPHEN 500 MG TAB PO SCH ×3 (05:59→21:35)
[2019-07-15] MEDS: HEPARIN SOD 5,000 UNIT/0.5 ML VIAL SQ SCH ×3 (06:00→21:40)
[2019-07-15] MEDS: SODIUM CHLORIDE 0.9% 1000ML 1,000 ML IV SCH (06:09)
[2019-07-15 06:59] LABS: Basophils # (auto) 0.01 K/uL (0-0.2); Basophils % (auto) 0.1 %; Eosinophils # (auto) 0.13 K/uL (0-0.5); Eosinophils % (auto) 1.5 %; Hemoglobin 8.8 g/dL (12.0-16.0); Immature Granulocytes # (auto) 0.02 K/uL (0.00-0.02); Immature Granulocytes % (auto) 0.2 %; Lymphocytes # (auto) 3.06 K/uL (1.2-3.4); Lymphocytes % (auto) 35.3 %; Mean Corpuscular Hemoglobin 29.9 pg (25-34); Mean Corpuscular Hgb Conc 32.6 g/dL (32-36); Mean Corpuscular Volume 91.8 fL (80-100); Mean Platelet Volume 9.9 fL (7.4-10.4); Monocytes # (auto) 0.57 K/uL (0.11-0.59); Monocytes % (auto) 6.6 %; Neutrophils # (auto) 4.88 K/uL (1.4-6.5); Neutrophils % (auto) 56.3 %; Platelet Count 208 K/uL (130-400); RDW Coefficient of Variation 13.2 % (11.5-14.5); Red Blood Count 2.94 M/uL (4.2-5.4); White Blood Count 8.67 K/uL (4.8-10.8)
[2019-07-15 07:07] LABS: Partial Thromboplastin Time 27.2 Seconds (21.0-31.0)
[2019-07-15 07:33] LABS: BUN Creatinine Ratio 16.6 (10-20); Calcium 8.2 mg/dl (8.5-10.1); Creatinine Clr Calc Pharmacy 53.2 ml/min; Est GFR (African American) 68.5; Est GFR (Non-African American) 59.1; Magnesium 1.5 mg/dl (1.8-2.4); Potassium 4.2 mmol/L (3.5-5.1)
[2019-07-15] MEDS: DOXYCYCLINE HYCLATE 100 MG in DEXTROSE 5% 100 ML IV SCH ×2 (08:54→20:39)
[2019-07-15] MEDS: INSULIN ASPART 100 UNITS/ML 3 ML PEN SC SCH ×4 (08:58→21:39)
[2019-07-15] MEDS: CARBIDOPA/LEVODOPA 25/100MG TAB PO SCH ×4 (08:59→21:35)
[2019-07-15] MEDS: ASPIRIN 81 MG ECTAB PO SCH (09:00)
[2019-07-15] MEDS: METOPROLOL SUCC 50MG EXT REL TAB PO SCH ×2 (09:00→21:35)
[2019-07-15] MEDS ORDERED: MULTIVITAMIN TAB PO SCH (09:00)
[2019-07-15] MEDS: ATORVASTATIN 40 MG TAB PO SCH (09:00)
[2019-07-15] MEDS: PANTOprazole 40 MG TAB PO SCH (09:00)
[2019-07-15] MEDS: AMLODIPINE BESYLATE 5 MG TAB PO SCH ×2 (09:01→09:08)
[2019-07-15] MEDS: ESCITALOPRAM OXALATE 20 MG TAB PO SCH (09:02)
[2019-07-15] MEDS: MULTIVITAMIN TAB PO SCH (09:02)
[2019-07-15] MEDS: POLYETHYLENE (MIRALAX) 17 GM PACK PO SCH (09:02)
[2019-07-15] MEDS: DOCUSATE SODIUM 100 MG CAP PO SCH ×2 (09:02→21:35)
[2019-07-15] MEDS: ISOSORBIDE MONO EXTENDED REL 30 MG TABCR PO SCH (09:06)
--- NOTE | 2019-07-15 11:24 | Orthopedic Progress Note ---
Date of Service July 15, 2019 Assessment & Plan (1) Diabetic foot infection: Left foot looks fine. We will continue splint on the right foot. We will change this tomorrow. Depending on how swelling is would consider either re- splinting or a total contact cast. Would need to coordinate with diabetic foot clinic regarding application of a total contact cast. She would then be able to weight-bear as tolerated on this. I would recommend intermediate facility. Cast will need to be changed weekly to inspect wound. Continue IV antibiotics. Continue DVT prophylaxis. She is afebrile and her labs are stable. Present on Admission?: Yes (2) Parkinson disease: Present on Admission?: Yes (3) SABRINA (acute kidney injury): Present on Admission?: Yes Subjective Resting comfortably in bed. Pain minimal. Concerned about left foot. Discussed with her the findings of the operation as well as the plan. Physical Exam Physical Exam: The left foot shows nonpalpable pedal pulses. There is a plantar callosity without any skin breakdown over the distal portion of the first toe. She has an Achilles contracture. She can wiggle the toes and flex and extend the ankle. There is no skin breakdown. The right foot is in the splint. Results & Data Vital Signs (Past 12 Hours) Vital Signs Temp Pulse Resp BP Pulse Ox 07/15/19 07:07 37.0 C 61 16 94/55 L 94 07/15/19 03:30 36.9 C 62 16 99/57 L 96 07/14/19 23:50 36.9 C 60 16 95/56 L 98 Laboratory Results 07/15/19 07/15/19 07/15/19 Range/Units 08:12 06:23 06:23 WBC 8.67 (4.8-10.8) K/uL RBC 2.94 L (4.2-5.4) M/uL Hgb 8.8 L (12.0-16.0) g/dL Hct 27.0 L (37-47) % MCV 91.8 (80-100) fL MCH 29.9 (25-34) pg MCHC 32.6 (32-36) g/dL RDW Std Deviation 44.0 (36.4-46.3) fL RDW Coeff of [place] 13.2 (11.5-14.5) % Plt Count 208 (130-400) K/uL MPV 9.9 (7.4-10.4) fL Immature Gran % (Auto) 0.2 % Neut % (Auto) 56.3 % Lymph % (Auto) 35.3 % [place] % (Auto) 6.6 % Eos % (Auto) 1.5 % Baso % (Auto) 0.1 % Immature Gran # (Auto) 0.02 (0.00-0.02) K/uL Neut # (Auto) 4.88 (1.4-6.5) K/uL Lymph # (Auto) 3.06 (1.2-3.4) K/uL [place] # (Auto) 0.57 (0.11-0.59) K/uL Eos # (Auto) 0.13 (0-0.5) K/uL Baso # (Auto) 0.01 (0-0.2) K/uL APTT (21.0-31.0) Seconds PTT Ratio Sodium 139 (136-145) mmol/L Potassium 4.2 (3.5-5.1) mmol/L Chloride 107 (98-107) mmol/L Carbon Dioxide 29 (21-32) mmol/L Anion Gap 3.0 (3-11) BUN 17 (7-18) mg/dl Creatinine 1.00 (0.6-1.2) mg/dl Est Cr Clr Drug Dosing 53.2 ml/min Est GFR ( Amer) 68.5 Est GFR (Non-Af Amer) 59.1 BUN/Creatinine Ratio 16.6 (10-20) Glucose 140 H (70-99) mg/dl POC Glucose 143 H (70-99) Calcium 8.2 L (8.5-10.1) mg/dl Magnesium 1.5 L (1.8-2.4) mg/dl 07/15/19 07/14/19 07/14/19 Range/Units 06:23 20:35 18:11 WBC (4.8-10.8) K/uL RBC (4.2-5.4) M/uL Hgb (12.0-16.0) g/dL Hct (37-47) % MCV (80-100) fL MCH (25-34) pg MCHC (32-36) g/dL RDW Std Deviation (36.4-46.3) fL RDW Coeff of [place] (11.5-14.5) % Plt Count (130-400) K/uL MPV (7.4-10.4) fL Immature Gran % (Auto) % Neut % (Auto) % Lymph % (Auto) % [place] % (Auto) % Eos % (Auto) % Baso % (Auto) % Immature Gran # (Auto) (0.00-0.02) K/uL Neut # (Auto) (1.4-6.5) K/uL Lymph # (Auto) (1.2-3.4) K/uL [place] # (Auto) (0.11-0.59) K/uL Eos # (Auto) (0-0.5) K/uL Baso # (Auto) (0-0.2) K/uL APTT 27.2 (21.0-31.0) Seconds PTT Ratio 1.0 Sodium (136-145) mmol/L Potassium (3.5-5.1) mmol/L Chloride (98-107) mmol/L Carbon Dioxide (21-32) mmol/L Anion Gap (3-11) BUN (7-18) mg/dl Creatinine (0.6-1.2) mg/dl Est Cr Clr Drug Dosing ml/min Est GFR ( Amer) Est GFR (Non-Af Amer) BUN/Creatinine Ratio (10-20) Glucose (70-99) mg/dl POC Glucose 176 H 129 H (70-99) Calcium (8.5-10.1) mg/dl Magnesium (1.8-2.4) mg/dl 07/14/19 Range/Units 12:41 WBC (4.8-10.8) K/uL RBC (4.2-5.4) M/uL Hgb (12.0-16.0) g/dL Hct (37-47) % MCV (80-100) fL MCH (25-34) pg MCHC (32-36) g/dL RDW Std Deviation (36.4-46.3) fL RDW Coeff of [place] (11.5-14.5) % Plt Count (130-400) K/uL MPV (7.4-10.4) fL Immature Gran % (Auto) % Neut % (Auto) % Lymph % (Auto) % [place] % (Auto) % Eos % (Auto) % Baso % (Auto) % Immature Gran # (Auto) (0.00-0.02) K/uL Neut # (Auto) (1.4-6.5) K/uL Lymph # (Auto) (1.2-3.4) K/uL [place] # (Auto) (0.11-0.59) K/uL Eos # (Auto) (0-0.5) K/uL Baso # (Auto) (0-0.2) K/uL APTT (21.0-31.0) Seconds PTT Ratio Sodium (136-145) mmol/L Potassium (3.5-5.1) mmol/L Chloride (98-107) mmol/L Carbon Dioxide (21-32) mmol/L Anion Gap (3-11) BUN (7-18) mg/dl Creatinine (0.6-1.2) mg/dl Est Cr Clr Drug Dosing ml/min Est GFR ( Amer) Est GFR (Non-Af Amer) BUN/Creatinine Ratio (10-20) Glucose (70-99) mg/dl POC Glucose 122 H (70-99) Calcium (8.5-10.1) mg/dl Magnesium (1.8-2.4) mg/dl
--- NOTE | 2019-07-15 15:09 | Hospitalist Progress Note ---
Date of Service July 15, 2019 Assessment & Plan (1) Diabetic foot infection: (1) Diabetic foot infection: Per admitting service notes: -Patient sent to the ED from orthopedic office for evaluation of hyperglycemia and preparation for possible right transmetatarsal amputation secondary to n onhealing diabetic foot wound -Wound culture from 06/10/2019 grew coag negative staph; patient has not been on any antibiotics -Does not appear septic -will start IV Zosyn and IV doxycycline -Arterial Doppler; no significant obstruction Status post amputation, right transmetatarsal 07/14/19 Blood cultures 07/10/2019: Negative Wound cultures 07/14/2019: Staphylococcus species Continue Dapto and Zosyn Further management per orthopedic service Continue wound care follow-up Plan subcutaneous every 8 hours for DVT prophylaxis (2) Hyperglycemia: Management as below (3) Diabetes mellitus type 2 with complications: -Blood sugar 391 on presentation labs -No signs of DKA -will give regular insulin 10 units IV x1 dose then managed with Lantus and NovoLog -Pharmacy glycemic consult -Hgb A1c 8.0 03/2019 -Blood glucose within acceptable range (4) SABRINA (acute kidney injury): -Creatinine 1.4 (baseline 1.0) -Likely prerenal due to dehydration from hyperglycemia -IVF, monitor renal functions -Back to baseline 1.0 (5) Hypertension: -On the low side, hold amlodipine plus Imdur continue amlodipine (6) Coronary atherosclerosis of [place] coronary vessel: No Cardiac symptoms -Continue aspirin, Plavix, statin, beta-clyde (7) Diastolic CHF: Euvolemic (8) S/P implantation of automatic cardioverter/defibrillator (AICD): -No acute issues (9) Depression: -Patient reports increasing depression symptoms -No suicidal or homicidal thoughts -Mental health consult -Appreciate psychiatric input and recommendation (10) Parkinson disease: -Continue carbidopa-levodopa -No acute parkinsonian symptoms (11) DVT prophylaxis: -SQ heparin Will likely need to be transitioned to rehab Subjective Follow-up for diabetic foot infection, status post amputation Seen resting in bed, comfortable, not in distress States she feels fine overall Denies pain No chest pain no shortness of breath no palpitations, dizziness No other symptoms Review of Systems Review of Systems: All systems reviewed & are unremarkable except as noted in HPI & below Physical Exam Physical Exam: General- oriented x 3, not in distress, speaks in sentences with no effort or accessory muscle use Head- atraumatic Eyes- PERRL, EOMI, anicteric ENT- oropharynx clear Neck- supple, no JVD, no adenopathy, no thyromegaly; carotids +2/2, no bruits appreciated Lungs- clear to auscultation bilaterally, no rales/wheezes Heart- normal rate, regular rhythm; no murmur, no gallop, no rub appreciated Abdomen- normal bowel sounds, nondistended, soft, nontender, no masses or hepatosplenomegaly Extremities- no pretibial edema, no calf tenderness; peripheral pulses intact Right foot with heavy dressing in place Neuro- alert, oriented x 3; CN 2-12 grossly intact; motor 5/5 bilaterally;sensa tion 100% on all extremities; no other gross focal neurologic deficits Skin- warm & dry Results & Data Vital Signs (Past 12 Hours) Vital Signs Temp Pulse Resp BP Pulse Ox 07/15/19 07:07 37.0 C 61 16 94/55 L 94 07/15/19 03:30 36.9 C 62 16 99/57 L 96 Laboratory Results Laboratory Results - last 24 hr 07/14/19 07/15/19 07/15/19 20:35 06:23 06:23 WBC 8.67 RBC 2.94 L Hgb 8.8 L Hct 27.0 L MCV 91.8 MCH 29.9 MCHC 32.6 RDW Std Deviation 44.0 RDW Coeff of [place] 13.2 Plt Count 208 MPV 9.9 Immature Gran % (Auto) 0.2 Neut % (Auto) 56.3 Lymph % (Auto) 35.3 [place] % (Auto) 6.6 Eos % (Auto) 1.5 Baso % (Auto) 0.1 Immature Gran # (Auto) 0.02 Neut # (Auto) 4.88 Lymph # (Auto) 3.06 [place] # (Auto) 0.57 Eos # (Auto) 0.13 Baso # (Auto) 0.01 APTT 27.2 PTT Ratio 1.0 Sodium Potassium Chloride Carbon Dioxide Anion Gap BUN Creatinine Est Cr Clr Drug Dosing Est GFR ( Amer) Est GFR (Non-Af Amer) BUN/Creatinine Ratio Glucose POC Glucose 176 H Calcium Magnesium 07/15/19 07/15/19 07/15/19 06:23 08:12 12:07 WBC RBC Hgb Hct MCV MCH MCHC RDW Std Deviation RDW Coeff of [place] Plt Count MPV Immature Gran % (Auto) Neut % (Auto) Lymph % (Auto) [place] % (Auto) Eos % (Auto) Baso % (Auto) Immature Gran # (Auto) Neut # (Auto) Lymph # (Auto) [place] # (Auto) Eos # (Auto) Baso # (Auto) APTT PTT Ratio Sodium 139 Potassium 4.2 Chloride 107 Carbon Dioxide 29 Anion Gap 3.0 BUN 17 Creatinine 1.00 Est Cr Clr Drug Dosing 53.2 Est GFR ( Amer) 68.5 Est GFR (Non-Af Amer) 59.1 BUN/Creatinine Ratio 16.6 Glucose 140 H POC Glucose 143 H 123 H Calcium 8.2 L Magnesium 1.5 L 07/15/19 17:21 WBC RBC Hgb Hct MCV MCH MCHC RDW Std Deviation RDW Coeff of [place] Plt Count MPV Immature Gran % (Auto) Neut % (Auto) Lymph % (Auto) [place] % (Auto) Eos % (Auto) Baso % (Auto) Immature Gran # (Auto) Neut # (Auto) Lymph # (Auto) [place] # (Auto) Eos # (Auto) Baso # (Auto) APTT PTT Ratio Sodium Potassium Chloride Carbon Dioxide Anion Gap BUN Creatinine Est Cr Clr Drug Dosing Est GFR ( Amer) Est GFR (Non-Af Amer) BUN/Creatinine Ratio Glucose POC Glucose 118 H Calcium Magnesium
[2019-07-15] MEDS: MAGNESIUM SULFATE / D5W 1 GM/100 ML BAG IV SCH ×2 (16:12→17:12)
[2019-07-15] MEDS: SENNA 8.6 MG TAB PO SCH (21:35)
[2019-07-15] MEDS: CLOPIDOGREL BISULFATE 75 MG TAB PO SCH (21:35)
[2019-07-15] MEDS: INSULIN GLARGINE SOLOSTAR 100 UNITS/ML 3 ML PEN SC SCH ×2 (21:38→22:24)
[2019-07-16] MEDS: OXYCODONE HCL IR 5 MG TAB (IMMEDIATE RELEASE) PO PRN (00:30)
[2019-07-16] MEDS: HEPARIN SOD 5,000 UNIT/0.5 ML VIAL SQ SCH ×3 (05:02→21:12)
[2019-07-16] MEDS: PIPERACILLIN/TAZOBACTAM 3.375 GM in DEXTROSE 5% 100 ML IV SCH ×2 (05:02→11:33)
[2019-07-16] MEDS: ACETAMINOPHEN 500 MG TAB PO SCH ×3 (05:04→21:07)
[2019-07-16 07:01] LABS: Hematocrit (blood only) 29.8 % (37-47); Hemoglobin 9.3 g/dL (12.0-16.0); Mean Corpuscular Hemoglobin 28.3 pg (25-34); Mean Corpuscular Hgb Conc 31.2 g/dL (32-36); Mean Corpuscular Volume 90.6 fL (80-100); Mean Platelet Volume 10.6 fL (7.4-10.4); Platelet Count 238 K/uL (130-400); RDW Coefficient of Variation 13.4 % (11.5-14.5); RDW Standard Deviation 43.9 fL (36.4-46.3); Red Blood Count 3.29 M/uL (4.2-5.4)
[2019-07-16 07:09] LABS: Partial Thromboplastin Ratio 1.1; Partial Thromboplastin Time 30.7 Seconds (21.0-31.0)
[2019-07-16 08:10] LABS: BUN Creatinine Ratio 16.7 (10-20); Creatinine Clr Calc Pharmacy 45.9 ml/min; Est GFR (African American) 57.2; Est GFR (Non-African American) 49.4
--- NOTE | 2019-07-16 08:38 | Anesthesiology Progress Note ---
Date of Service July 16, 2019 Anesthesia Post Procedure Vital Signs Vital Signs: Temp Pulse Pulse Resp BP BP Pulse Ox 07/16/19 07:58 36.9 C 60 11 L 122/68 97 07/15/19 23:35 36.9 C 63 16 107/64 97 07/15/19 21:33 78 107/54 L 07/15/19 15:27 36.9 C 66 16 115/76 96 Pain Intensity Generalized: Pain Intensity: 2 Right Leg: Pain Intensity: 10 Notes Mental Status: alert / awake / arousable and participated in evaluation Nausea / Vomiting: adequately controlled Pain: adequately controlled Airway Patency, RR, SpO2: stable & adequate BP & HR: stable & adequate Hydration State: stable & adequate
[2019-07-16] MEDS: CARBIDOPA/LEVODOPA 25/100MG TAB PO SCH ×4 (08:54→21:08)
[2019-07-16] MEDS: ATORVASTATIN 40 MG TAB PO SCH (08:54)
[2019-07-16] MEDS: METOPROLOL SUCC 50MG EXT REL TAB PO SCH ×2 (08:55→21:08)
[2019-07-16] MEDS: DOCUSATE SODIUM 100 MG CAP PO SCH ×2 (08:55→18:24)
[2019-07-16] MEDS: MULTIVITAMIN TAB PO SCH (08:55)
[2019-07-16] MEDS: ESCITALOPRAM OXALATE 20 MG TAB PO SCH (08:55)
[2019-07-16] MEDS: PANTOprazole 40 MG TAB PO SCH (08:56)
[2019-07-16] MEDS: ASPIRIN 81 MG ECTAB PO SCH (08:56)
[2019-07-16] MEDS: POLYETHYLENE (MIRALAX) 17 GM PACK PO SCH (08:57)
[2019-07-16] MEDS: LACTOBACILLUS ACIDOPHILUS (FLORANEX) TAB PO SCH ×4 (09:01→21:10)
[2019-07-16] MEDS: DOXYCYCLINE HYCLATE 100 MG in DEXTROSE 5% 100 ML IV SCH (09:04)
[2019-07-16] MEDS: INSULIN ASPART 100 UNITS/ML 3 ML PEN SC SCH ×4 (09:21→21:12)
[2019-07-16 09:52] LABS: Potassium 4.3 mmol/L (3.5-5.1)
--- NOTE | 2019-07-16 14:11 | Pharmacy Report ---
Pharmacy Glycemic Short Note 2 - Date of Service July 16, 2019 - Glycemic Short BSG Results (Last 24 hours): 07/15/19 07/15/19 07/16/19 17:21 20:32 06:35 Glucose 72 POC Glucose 118 H 147 H 07/16/19 08:19 Glucose POC Glucose 80 OUTPATIENT ANTIDIABETIC REGIMEN: * Lantus 18 units SQ daily (pt not taking) * Novolog 8 units with meals (pt not taking) * A1c: 11.1% 07/10/19 ASSESSMENT: * Roberta is a 63 yr old T2DM female admitted with hyperglycemia. She is being treated with zosyn and doxycycline for diabetic foot infection. POD #2 s/p tra nsmetatarsal amputation. * Patient received 40 units of insulin over the past 24 hours * 18 units of basal insulin * 22 units of prandial/correctional insulin * BSGs ranging 118-147 over the past 24hrs * Anticipating insulin regimen will need decreased for the next 24hrs d/t : * AM Fasting BSG = 80 mg/dL. This is a significant decrease compared to fasting yesterday. I will decrease basal insulin by 17%. * Lunch time BSG is below goal. I will continue current Novolog order for now since this has worked well for the past 48 hours. Will consider loosening the carb ratio tomorrow if trend continues. PLAN FOR INPATIENT GLYCEMIC CONTROL: * Basal insulin - decrease * Lantus 15 units SQ qPM * Bolus insulin - loosen * NovoLog per scale ACHS or Q6hrs while NPO * Goal Range: Low 120 mg/dL - High 150 mg/dL * Correction Factor: 20 mg/dL/unit * Nutritional / Prandial insulin per carb ratio of 1 unit per 6 grams CHO consumed RECOMMENDATIONS FOR DISCHARGE: * A1c = 11.1% (A1c of 8% back in March of 2019) * Family reports stopping insulin awhile back because they thought patient was being over-medicated. * Recommend discharge on Lantus 15 units SQ daily + Novolog 6 units TID with meals (hold Novolog if less than half the meal is consumed) * If there is concern regarding compliance with Novolog could consider a once weekly GLP-1 agonist such as Ozempic. Would avoid SGLT2 inhibitor as patient has already had amputation.
--- NOTE | 2019-07-16 15:44 | Orthopedic Progress Note ---
Date of Service July 16, 2019 Assessment & Plan (1) Diabetic foot infection: Wound is stable. The culture of her second toe done at the time of surgery has grown out staph. I feel confident that the area of infection has been completely removed. Can discuss length of IV antibiotics with medicine. I do not think that she needs to be on a very lengthy course. She could be transitioned to oral antibiotics at some point and we will coordinate with medicine. Continue the heparin for DVT prophylaxis. She is to be nonweightbearing. Spoke with the diabetes foot clinic. They can see her Saturday as an outpatient for a total contact cast. She can see me in my office Saturday before that. She will need to go to shelter and will will help coordinate that with the medical service. Once she has the total contact cast on next week then she could weight-bear as tolerated. Present on Admission?: Yes (2) Parkinson disease: Present on Admission?: Yes (3) SABRINA (acute kidney injury): Present on Admission?: Yes (4) Anemia: Present on Admission?: Yes (5) Acute blood loss anemia: Stable and asymptomatic at this point and requires no treatment. Present on Admission?: No Subjective Resting comfortably in bed and offers no complaint. Physical Exam Physical Exam: Dressing change. Swelling minimal. Foot warm with good capillary refill. Some drainage on the dressing but no active bleeding. No necrosis. Wound edges well approximated. A new bulky soft sterile dressing with anterior and posterior splints applied. Results & Data Vital Signs (Past 12 Hours) Vital Signs Temp Pulse Pulse Resp BP BP Pulse Ox 07/16/19 15:17 36.5 C 61 14 103/71 97 07/16/19 07:58 36.9 C 60 11 L 122/68 97 Laboratory Results 07/16/19 07/16/19 07/16/19 Range/Units 09:15 08:19 06:35 WBC (4.8-10.8) K/uL RBC (4.2-5.4) M/uL Hgb (12.0-16.0) g/dL Hct (37-47) % MCV (80-100) fL MCH (25-34) pg MCHC (32-36) g/dL RDW Std Deviation (36.4-46.3) fL RDW Coeff of [place] (11.5-14.5) % Plt Count (130-400) K/uL MPV (7.4-10.4) fL APTT (21.0-31.0) Seconds PTT Ratio Sodium 137 (136-145) mmol/L Potassium 4.3 (3.5-5.1) mmol/L Chloride 107 (98-107) mmol/L Carbon Dioxide 29 (21-32) mmol/L Anion Gap 1.0 L (3-11) BUN 19 H (7-18) mg/dl Creatinine 1.16 (0.6-1.2) mg/dl Est Cr Clr Drug Dosing 45.9 ml/min Est GFR ( Amer) 57.2 Est GFR (Non-Af Amer) 49.4 BUN/Creatinine Ratio 16.7 (10-20) Glucose 72 (70-99) mg/dl POC Glucose 80 (70-99) Calcium 9.0 (8.5-10.1) mg/dl Magnesium 2.0 (1.8-2.4) mg/dl 07/16/19 07/16/19 07/15/19 Range/Units 06:35 06:35 20:32 WBC 9.50 (4.8-10.8) K/uL RBC 3.29 L (4.2-5.4) M/uL Hgb 9.3 L (12.0-16.0) g/dL Hct 29.8 L (37-47) % MCV 90.6 (80-100) fL MCH 28.3 (25-34) pg MCHC 31.2 L (32-36) g/dL RDW Std Deviation 43.9 (36.4-46.3) fL RDW Coeff of [place] 13.4 (11.5-14.5) % Plt Count 238 (130-400) K/uL MPV 10.6 H (7.4-10.4) fL APTT 30.7 (21.0-31.0) Seconds PTT Ratio 1.1 Sodium (136-145) mmol/L Potassium (3.5-5.1) mmol/L Chloride (98-107) mmol/L Carbon Dioxide (21-32) mmol/L Anion Gap (3-11) BUN (7-18) mg/dl Creatinine (0.6-1.2) mg/dl Est Cr Clr Drug Dosing ml/min Est GFR ( Amer) Est GFR (Non-Af Amer) BUN/Creatinine Ratio (10-20) Glucose (70-99) mg/dl POC Glucose 147 H (70-99) Calcium (8.5-10.1) mg/dl Magnesium (1.8-2.4) mg/dl 07/15/19 Range/Units 17:21 WBC (4.8-10.8) K/uL RBC (4.2-5.4) M/uL Hgb (12.0-16.0) g/dL Hct (37-47) % MCV (80-100) fL MCH (25-34) pg MCHC (32-36) g/dL RDW Std Deviation (36.4-46.3) fL RDW Coeff of [place] (11.5-14.5) % Plt Count (130-400) K/uL MPV (7.4-10.4) fL APTT (21.0-31.0) Seconds PTT Ratio Sodium (136-145) mmol/L Potassium (3.5-5.1) mmol/L Chloride (98-107) mmol/L Carbon Dioxide (21-32) mmol/L Anion Gap (3-11) BUN (7-18) mg/dl Creatinine (0.6-1.2) mg/dl Est Cr Clr Drug Dosing ml/min Est GFR ( Amer) Est GFR (Non-Af Amer) BUN/Creatinine Ratio (10-20) Glucose (70-99) mg/dl POC Glucose 118 H (70-99) Calcium (8.5-10.1) mg/dl Magnesium (1.8-2.4) mg/dl
--- NOTE | 2019-07-16 17:38 | Hospitalist Progress Note ---
Date of Service July 16, 2019 Assessment & Plan (1) Diabetic foot infection: (1) Diabetic foot infection: Per admitting service notes: -Patient sent to the ED from orthopedic office for evaluation of hyperglycemia and preparation for possible right transmetatarsal amputation secondary to n onhealing diabetic foot wound -Wound culture from 06/10/2019 grew coag negative staph; patient has not been on any antibiotics -did not appear septic -IV Zosyn and IV doxycycline -Arterial Doppler; no significant obstruction Status post amputation, right transmetatarsal 07/14/19 Blood cultures 07/10/2019: Negative Wound cultures 07/14/2019: Staphylococcus species, coagulase negative staph Discussed with Dr. Quiros Transition from Dapto and Zosyn, to clindamycin x1 week Patient to follow-up with diabetic foot clinic on Saturday for possible total contact cast placement, after cast placement patient may weight-bear as tolerated Follow-up with orthopedic service as well on Saturday Plan subcutaneous every 8 hours for DVT prophylaxis (2) Hyperglycemia: Management as below (3) Diabetes mellitus type 2 with complications: -Blood sugar 391 on presentation labs -No signs of DKA -Pharmacy glycemic consult -Hgb A1c 8.0 03/2019 -Blood glucose within acceptable range, on insulin glargine and insulin sliding scale (4) SABRINA (acute kidney injury): -Creatinine 1.4 (baseline 1.0) -Likely prerenal due to dehydration from hyperglycemia -IVF, monitor renal functions -Back to baseline 1.0 (5) Hypertension: -On the low side, hold amlodipine plus Imdur continue metoprolol (6) Coronary atherosclerosis of [place] coronary vessel: No Cardiac symptoms -Continue aspirin, Plavix, statin, metoprolol (7) Diastolic CHF: Euvolemic (8) S/P implantation of automatic cardioverter/defibrillator (AICD): -No acute issues (9) Depression: -Patient reports increasing depression symptoms -No suicidal or homicidal thoughts -Mental health consult -Appreciate psychiatric input and recommendation (10) Parkinson disease: -Continue carbidopa-levodopa -No acute parkinsonian symptoms (11) DVT prophylaxis: -SQ heparin Discharge to rehab or halfway facility when accepted Subjective Follow-up status post right foot transmetatarsal amputation Seen resting in bed, comfortable, not in distress States she feels fine overall Denies pain Denies chest pain or palpitation, dizziness, nausea No other symptoms Review of Systems Review of Systems: All systems reviewed & are unremarkable except as noted in HPI & below Physical Exam Physical Exam: General- oriented x 3, not in distress, speaks in sentences with no effort or accessory muscle use Eyes- anicteric Neck- no JVD Lungs- clear breath sounds bilaterally, no crackles, no wheezing bilaterally Heart- normal rate, regular rhythm; no murmurs Abdomen- normal bowel sounds, nondistended, soft, nontender Extremities- Right foot: Heavy dressing in place Left lower extremity: No edema no calf tenderness Neuro- alert, oriented x 3; no gross focal neurologic deficits Skin- warm & dry Results & Data Vital Signs (Past 12 Hours) Vital Signs Temp Pulse Pulse Resp BP BP Pulse Ox 07/16/19 15:17 36.5 C 61 14 103/71 97 07/16/19 07:58 36.9 C 60 11 L 122/68 97 Laboratory Results Laboratory Results - last 24 hr 07/15/19 07/16/19 07/16/19 20:32 06:35 06:35 WBC 9.50 RBC 3.29 L Hgb 9.3 L Hct 29.8 L MCV 90.6 MCH 28.3 MCHC 31.2 L RDW Std Deviation 43.9 RDW Coeff of [place] 13.4 Plt Count 238 MPV 10.6 H APTT 30.7 PTT Ratio 1.1 Sodium Potassium Chloride Carbon Dioxide Anion Gap BUN Creatinine Est Cr Clr Drug Dosing Est GFR ( Amer) Est GFR (Non-Af Amer) BUN/Creatinine Ratio Glucose POC Glucose 147 H Calcium Magnesium 07/16/19 07/16/19 07/16/19 06:35 08:19 09:15 WBC RBC Hgb Hct MCV MCH MCHC RDW Std Deviation RDW Coeff of [place] Plt Count MPV APTT PTT Ratio Sodium 137 Potassium 4.3 Chloride 107 Carbon Dioxide 29 Anion Gap 1.0 L BUN 19 H Creatinine 1.16 Est Cr Clr Drug Dosing 45.9 Est GFR ( Amer) 57.2 Est GFR (Non-Af Amer) 49.4 BUN/Creatinine Ratio 16.7 Glucose 72 POC Glucose 80 Calcium 9.0 Magnesium 2.0 07/16/19 17:01 WBC RBC Hgb Hct MCV MCH MCHC RDW Std Deviation RDW Coeff of [place] Plt Count MPV APTT PTT Ratio Sodium Potassium Chloride Carbon Dioxide Anion Gap BUN Creatinine Est Cr Clr Drug Dosing Est GFR ( Amer) Est GFR (Non-Af Amer) BUN/Creatinine Ratio Glucose POC Glucose 153 H Calcium Magnesium
[2019-07-16] MEDS: SENNA 8.6 MG TAB PO SCH (18:24)
[2019-07-16] MEDS ORDERED: INSULIN GLARGINE SOLOSTAR 100 UNITS/ML 3 ML PEN SC SCH (21:00)
[2019-07-16] MEDS: CLOPIDOGREL BISULFATE 75 MG TAB PO SCH (21:08)
[2019-07-17 05:46] LABS: Partial Thromboplastin Ratio 1.5; Partial Thromboplastin Time 39.4 Seconds (21.0-31.0)
[2019-07-17] MEDS: HEPARIN SOD 5,000 UNIT/0.5 ML VIAL SQ SCH ×2 (05:46→13:20)
[2019-07-17] MEDS: ACETAMINOPHEN 500 MG TAB PO SCH ×2 (05:47→13:22)
[2019-07-17] MEDS ORDERED: CLINDAMYCIN HCL 150 MG CAP PO SCH (08:00)
[2019-07-17] MEDS: CARBOHYDRATES FOR HYPOGLYCEMIA PO PRN ×3 (08:18→08:51)
[2019-07-17] MEDS: DOCUSATE SODIUM 100 MG CAP PO SCH (08:25)
[2019-07-17] MEDS: ESCITALOPRAM OXALATE 20 MG TAB PO SCH (08:25)
[2019-07-17] MEDS: MULTIVITAMIN TAB PO SCH (08:25)
[2019-07-17] MEDS: METOPROLOL SUCC 50MG EXT REL TAB PO SCH (08:25)
[2019-07-17] MEDS: ATORVASTATIN 40 MG TAB PO SCH (08:26)
[2019-07-17] MEDS: PANTOprazole 40 MG TAB PO SCH (08:26)
[2019-07-17] MEDS: POLYETHYLENE (MIRALAX) 17 GM PACK PO SCH (08:26)
[2019-07-17] MEDS: CARBIDOPA/LEVODOPA 25/100MG TAB PO SCH ×3 (08:27→18:00)
[2019-07-17] MEDS: ASPIRIN 81 MG ECTAB PO SCH (08:27)
[2019-07-17] MEDS: LACTOBACILLUS ACIDOPHILUS (FLORANEX) TAB PO SCH ×3 (08:27→18:00)
[2019-07-17] MEDS: INSULIN ASPART 100 UNITS/ML 3 ML PEN SC SCH ×3 (09:30→18:13)
--- NOTE | 2019-07-17 10:35 | Pharmacy Report ---
Pharmacy Glycemic Short Note 2 - Date of Service July 17, 2019 - Glycemic Short BSG Results (Last 24 hours): 07/16/19 07/16/19 07/16/19 11:49 17:01 21:06 POC Glucose 104 H 153 H 102 H 07/17/19 07/17/19 07/17/19 08:35 08:37 08:51 POC Glucose 47 L* 54 L* 68 L* 07/17/19 09:06 POC Glucose 78 OUTPATIENT ANTIDIABETIC REGIMEN: * Family reports stopping insulin awhile back because they thought patient was being over-medicated. * A1c: 11.1% on 07/10/19 ASSESSMENT: * Roberta is a 63 yr old female with T2DM admitted with hyperglycemia now POD 3 s/p foot amputation * Patient received 34 units of insulin yesterday * 15 units of basal insulin * 19 units of prandial/correctional insulin * BSGs ranged 80-153 mg/dL yesterday * Insulin regimen requires further reduction due to severe AM hypoglycemia noted this morning (BSG 47 mg/dL) * Will hold Lantus for today, then decrease dose and change to once-daily AM administration (therefore dose can be more easily adjusted based on fasting BSG and this will also make transition to outpatient easier) * Will also loosen CHO ratio as two post-prandial BSG's below 110 mg/dL yesterday PLAN FOR INPATIENT GLYCEMIC CONTROL: * Basal insulin - decrease * Lantus qAM based on BSG (starting 1/4 AM) - 5 units for BSG less than 110 mg/dL - 10 units for BSG 110 mg/dL or greater * Bolus insulin - loosen * NovoLog per scale ACHS or Q6hrs while NPO with one overnight check * Goal Range: Low 110 mg/dL - High 140 mg/dL * Correction Factor: 20 mg/dL/unit * Nutritional / Prandial insulin per carb ratio of 1 unit per 7 grams CHO consumed RECOMMENDATIONS FOR DISCHARGE: * Discharge recommendations on 07/16/19 noted, but these will likely require adjustment based on hypoglycemia this AM. * Recommendations dependent on trend in BSG's today and tomorrow
--- NOTE | 2019-07-17 13:59 | Orthopedic Progress Note ---
Date of Service July 17, 2019 Assessment & Plan (1) Diabetic foot infection: Needs to remain NWB RLE Out of bed with walker/wheelchair. Elevate right foot as needed for pain/swelling. Ice as needed Keep splint and dressings on right foot at all times. Reinforce as needed. Agree with oral antibiotics- clindamycin Will continue to follow cultures. Patient seen by Dr. Quiros today as well Orthopedically stable for discharge today to [facility]. Follow up with Dr. Quiros as scheduled on 07/21/19 and then subsequently to the [facility]ound [facility] appointment for total contact cast. Subjective Resting in bed comfortably. Foot elevated, splint/dressings intact. Physical Exam Physical Exam: Right leg with splint/dressing clean, dry, intact. Dressings not removed today. Results & Data Vital Signs (Past 12 Hours) Vital Signs Temp Pulse Resp BP Pulse Ox 07/17/19 07:40 36.3 C L 60 12 118/66 98
--- NOTE | 2019-07-17 14:18 | Hospitalist Progress Note ---
Date of Service July 17, 2019 Assessment & Plan (1) Diabetic foot infection: Diabetic foot infection: Per admitting service notes: -Patient sent to the ED from orthopedic office for evaluation of hyperglycemia and preparation for possible right transmetatarsal amputation secondary to nonhealing diabetic foot wound -Wound culture from 06/10/2019 grew coag negative staph; patient has not been on any antibiotics -did not appear septic -IV Zosyn and IV doxycycline -Arterial Doppler; no significant obstruction Status post amputation, right transmetatarsal 07/14/19 Blood cultures 07/10/2019: Negative Wound cultures 07/14/2019: Staphylococcus species, coagulase negative staph Discussed with Dr. Quiros Transition from Dapto and Zosyn, to Doxycycline 100 mg twice daily x7 days Patient to follow-up with diabetic foot clinic on Sunday July 21, 2019for possible total contact cast placement, after cast placement patient may weight- bear as tolerated Follow-up with orthopedic service Dr. Quiros as well on Sunday, July 21, 2019 Lovenox 40 mg subcutaneous daily times at least 6 weeks for DVT prophylaxis Orthopedic service recommendations for discharge: Needs to remain NWB RLE Out of bed with walker/wheelchair. Elevate right foot as needed for pain/swelling. Ice as needed Keep splint and dressings on right foot at all times. Reinforce as needed. Diabetes mellitus type 2 with complications: -Blood sugar 391 on presentation labs -No signs of DKA -Pharmacy glycemic consult -Hgb A1c 8.0 03/2019 -Patient placed on insulin glargine and insulin sliding scale - Noted to have hypoglycemia in the 40s on July 17, 2018 Patient admits to not eating well the previous day Pharmacy glycemic consult recommends: Basal insulin - decrease Lantus qAM based on BSG (starting 1/4 AM) - 5 units for BSG less than 110 mg/dL - 10 units for BSG 110 mg/dL or greater Bolus insulin - loosen NovoLog per scale ACHS or Q6hrs while NPO with one overnight check Goal Range: Low 110 mg/dL - High 140 mg/dL Correction Factor: 20 mg/dL/unit Nutritional / Prandial insulin per carb ratio of 1 unit per 7 grams CHO consumed Please monitor blood glucose closely and titrate insulin accordingly SABRINA (acute kidney injury): -Creatinine 1.4 (baseline 1.0) -Likely prerenal due to dehydration from hyperglycemia -Given intravenous fluids -Back to baseline 1.0 - Monitor Hypertension: -On the low side, hold amlodipine plus Imdur continue metoprolol Monitor blood pressure daily Coronary atherosclerosis of [place] coronary vessel: No Cardiac symptoms -Continue aspirin, Plavix, statin, metoprolol Diastolic CHF: Euvolemic S/P implantation of automatic cardioverter/defibrillator (AICD): -No acute issues Depression: -Patient reports increasing depression symptoms -No suicidal or homicidal thoughtsPsychiatry consulted Lexapro increased from 15 to 20 mg p.o. daily Psychiatry recommendations: Due to pending surgery, I would not suggest making the jump to an alternative antidepressant at this time and would prefer to wait for at least a few weeks for her to convalesce from that to minimize the risk of accidentally decompensating her mood stability in attempting a cross taper presently however, given age and risk factors previously noted, she might do better with an SNRI as an alternative to the Lexapro and she could be considered for cross taper from Lexapro to venlafaxine ER or cymbalta if she requires additional mood support in the coming months. Again, due to multiple risk factors, she was advised she would likely benefit from ongoing outpatient psychiatric follow-up and she was agreeable and we will try to facilitate referral. Presently, to try to best support her mood with minimal additional risk, will increase Lexapro from 15 mg to 20 mg daily. This is above the FDA recommended dose for geriatric patients and this agent does have some risk for QTC prolongation at higher doses however she had a QTC interval well within normal range yesterday and does have a defibrillator placed and reports she has previously tolerated the medication well (presently prescribed y her PCP) and the potential therapeutic benefits are felt to outweigh the potential risks presently. She was in agreement with dose escalation as recommended. Parkinson disease: -Continue carbidopa-levodopa -No acute parkinsonian symptoms DVT prophylaxis: Lovenox subcutaneous 40 mg daily for 6 weeks at least Discharge to [facility] today Follow-up with [facility] on July 21, 2019 Follow-up up with primary care physician and psychiatrist after discharge from snf facility Subjective Follow-up for status post right foot transmetatarsal amputation Seen resting in bed, comfortable, watching TV States she feels fine overall Denies pain No shortness of breath, chest pain or palpitations, dizziness No abdominal pain, no nausea or vomiting, Positive BMs Was hypoglycemic this morning, was reporting hallucinations, improved with being given juice No other symptoms States she is ready and is comfortable with being discharged today. Review of Systems Review of Systems: All systems reviewed & are unremarkable except as noted in HPI & below Physical Exam Physical Exam: General- oriented x 3, not in distress, speaks in sentences with no effort or accessory muscle use Eyes- anicteric Neck- no JVD Lungs- clear breath sounds bilaterally No wheezing or crackles Heart- normal rate, regular rhythm; no murmurs Abdomen- normal bowel sounds, nondistended, soft, nontender Extremities- no pretibial edema, no calf tenderness Right lower leg: Positive for heavy dressing in place Left lower leg: No edema, positive callus on the lateral aspect of the right big toe, no signs of infection Neuro- alert, oriented x 3; noNewgross focal neurologic deficits Skin- warm & dry Results & Data Vital Signs (Past 12 Hours) Vital Signs Temp Pulse Pulse Resp BP BP Pulse Ox 07/17/19 14:03 36.3 C L 60 12 118/66 103/71 98 07/17/19 07:40 36.3 C L 60 12 118/66 98
--- NOTE | 2019-07-17 15:20 | Discharge Summary ---
Date of Service July 17, 2019 Admission HPI Per Admitting Provider Per medical admission note: 63-year-old female who was sent to the ED by outpatient orthopedic office for evaluation of hyperglycemia. Patient was being evaluated by Dr. Quiros for evaluation of nonhealing right foot diabetic ulcer. Per the patient, he is planning for a transmetatarsal amputation in the next few days. Patient has been following with the wound care center. She reports she has not been on antibiotics recently. She denies having fevers and chills. There has been some drainage from the wounds. Patient denies recent episodes of chest pain or shortness of breath. No lightheadedness, dizziness, diaphoresis, syncopal events. She had some mild nausea today however denies any vomiting, abdominal pain, diarrhea. No urinary symptoms. Patient reports she has been feeling increased depression recently. No suicidal or homicidal thoughts. She is open to being evaluated by psychiatry while in the hospital. In the ED, labs show glucose 391. Patient does not appear to be in DKA. She was given IVF. Records reviewed. Patient been treated with IV antibiotics for nonhealing foot infection associated with diabetes with likely pending right metatarsal amputation. She is also being treated for type 2 diabetes, acute kidney injury, she is on her home antihypertensive regimen, she has a history of coronary atherosclerosis, congestive heart failure, and is status post cardioverter defi brillator implant. Additionally she has what appears to be a fairly recent diagnosis of Parkinson's disease and treated with Sinemet. Psychiatric consultation requested for depression. On interview this morning patient reports a history of depression and believes she previously responded positively to Lexapro which was started several years ago and helped reduce frequency of crying spells. She believes she has been on the same dose prescribed by her PCP for several years. This medication has been well-tolerated. She describes a multitude of losses including 3 brothers who have since 2018 and the emotional shock associated with pending amputation. She denies experiencing much guilt associated with her medical debility and feels well supported by family at home. She denies anhedonia, confusion, changes in sleep patterns or appetite at home. She denies any thoughts of life not being worth living or suicide and indicates that her evangelical belief makes suicide not an option as it is a sin and she does not want to go to hell. She is Gnosticist and her spiritism and evangelical vi are important to her. She denies symptoms of psychosis, bipolar disorder, or a significant history of anxiety however she acknowledges that other people have told her that she worries too much in the past. She believes she may have had panic attacks in the more distant past but not since on the Lexapro. Presently she is willing to undergo the treatment that is recommended to her. "What choice do I have?" Admission Exam Per Admitting Provider Constitutional: WD/WN, vitals as above Eyes: PERRL, conjunctivae normal, anicteric sclerae ENMT: external ear and nose normal, oropharynx normal Respiratory: normal respiratory effort, lungs clear to auscultation Cardiovascular: Rate/Rhythm: regular rate and regular rhythm Vessels: + abnormal peripheral pulses (Pedal pulses diminished) Extremities: no edema Gastrointestinal (Abdomen): normal bowel sounds, soft, nontender, no hepatosplenomegaly Musculoskeletal: no cyanosis or clubbing, extremities motor strength 5/5 Skin: no rashes, warm and dry Wounds noted to medial base of right great toe and dorsal aspect of right second toe, wounds open and wet appearing with foul odor Neurologic: PERRL, EOMI, accommodation nl, no face palsy, no dysarthria Psychiatric: A+Ox3, euthymic affect Principal Diagnosis DIABETIC FOOT INFECTION, RIGHT; S/P TRANSMETATARSAL AMPUTATION Discharge Exam General- oriented x 3, not in distress, speaks in sentences with no effort or accessory muscle use Eyes- anicteric Neck- no JVD Lungs- clear breath sounds bilaterally No wheezing or crackles Heart- normal rate, regular rhythm; no murmurs Abdomen- normal bowel sounds, nondistended, soft, nontender Extremities- no pretibial edema, no calf tenderness Right lower leg: Positive for heavy dressing in place Left lower leg: No edema, positive callus on the lateral aspect of the right big toe, no signs of infection Neuro- alert, oriented x 3; noNewgross focal neurologic deficits Skin- warm & dry Discharge Data Allergies Allergy/AdvReac Type Severity Reaction Status Date / Time bee venom protein (honey bee) Allergy Severe SWELLING Verified 07/14/19 06:37 lidocaine Allergy Severe ANAPHYLAXIS Verified 07/14/19 06:37 morphine Allergy Mild itching Verified 07/14/19 06:37 tramadol Allergy Mild ITCHING Verified 07/14/19 06:37 trazodone Allergy Mild ITCHING Verified 07/14/19 06:37 Consultations 07/10/19 16:31 ED Decision to Admit Stat 07/10/19 18:22 Consult Case Management - Discharge Planning Routine Consult Orthopedic Surgery Routine Consult Psychiatry Routine 07/14/19 09:33 Consult Case Management - Discharge Planning Routine Procedures Performed Operation Date: 07/14/19 07:00 Actual Procedures p Right Foot Transmetatarsal Amputation,(Right) - Robert Quiros MD s Percutaneous Achilles Tendon Lengthening(Right) - Robert Quiros MD Ordered Studies 07/10/19 18:35 US arterial duplex LE RT Routine IMPRESSION: 1. No arterial occlusion. 2. Mildly elevated peak systolic velocities the distal right superficial femoral artery measure up to 204 cm/s. 3. Biphasic and monophasic waveforms in the lower leg. 07/14/19 07:00 FL fluoroscopy <1hr Routine FL foot RT 2V Routine Hospital Course (1) Diabetic foot infection: Diabetic foot infection: Per admitting service notes: -Patient sent to the ED from orthopedic office for evaluation of hyperglycemia and preparation for possible right transmetatarsal amputation secondary to nonhealing diabetic foot wound -Wound culture from 06/10/2019 grew coag negative staph; patient has not been on any antibiotics -did not appear septic -IV Zosyn and IV doxycycline -Arterial Doppler; no significant obstruction Status post amputation, right transmetatarsal 07/14/19 Blood cultures 07/10/2019: Negative Wound cultures 07/14/2019: Staphylococcus species, coagulase negative staph Discussed with Dr. Quiros Transition from Dapto and Doxy IV, to PO Doxycycline 100 mg twice daily x7 days Patient to follow-up with diabetic foot clinic on Sunday July 21, 2019for possible total contact cast placement, after cast placement patient may weight- bear as tolerated Follow-up with orthopedic service Dr. Quiros as well on Sunday, July 21, 2019 Lovenox 40 mg subcutaneous daily times at least 6 weeks for DVT prophylaxis Orthopedic service recommendations for discharge: Needs to remain NWB RLE Out of bed with walker/wheelchair. Elevate right foot as needed for pain/swelling. Ice as needed Keep splint and dressings on right foot at all times. Reinforce as needed. Diabetes mellitus type 2 with complications: -Blood sugar 391 on presentation labs -No signs of DKA -Pharmacy glycemic consult -Hgb A1c 8.0 03/2019 -Patient placed on insulin glargine and insulin sliding scale - Noted to have hypoglycemia in the 40s on July 17, 2018 Patient admits to not eating well the previous day Pharmacy glycemic consult recommends: Basal insulin - decrease Lantus qAM based on BSG (starting 1/4 AM) - 5 units for BSG less than 110 mg/dL - 10 units for BSG 110 mg/dL or greater Bolus insulin - loosen NovoLog per scale ACHS or Q6hrs while NPO with one overnight check Goal Range: Low 110 mg/dL - High 140 mg/dL Correction Factor: 20 mg/dL/unit Nutritional / Prandial insulin per carb ratio of 1 unit per 7 grams CHO consumed Please monitor blood glucose closely and titrate insulin accordingly SABRINA (acute kidney injury): -Creatinine 1.4 (baseline 1.0) -Likely prerenal due to dehydration from hyperglycemia -Given intravenous fluids -Back to baseline 1.0 - repeat BMP in 1 week Hypertension: -On the low side, hold amlodipine plus Imdur continue metoprolol Monitor blood pressure daily Coronary atherosclerosis of [place] coronary vessel: No Cardiac symptoms -Continue aspirin, Plavix, statin, metoprolol Diastolic CHF: Euvolemic S/P implantation of automatic cardioverter/defibrillator (AICD): -No acute issues Depression: -Patient reports increasing depression symptoms -No suicidal or homicidal thoughts Psychiatry consulted Lexapro increased from 15 to 20 mg p.o. daily Psychiatry recommendations: Due to pending surgery, I would not suggest making the jump to an alternative antidepressant at this time and would prefer to wait for at least a few weeks for her to convalesce from that to minimize the risk of accidentally decompensating her mood stability in attempting a cross taper presently however, given age and risk factors previously noted, she might do better with an SNRI as an alternative to the Lexapro and she could be considered for cross taper from Lexapro to venlafaxine ER or cymbalta if she requires additional mood support in the coming months. Again, due to multiple risk factors, she was advised she would likely benefit from ongoing outpatient psychiatric follow-up and she was agreeable and we will try to facilitate referral. Presently, to try to best support her mood with minimal additional risk, will increase Lexapro from 15 mg to 20 mg daily. This is above the FDA recommended dose for geriatric patients and this agent does have some risk for QTC prolongation at higher doses however she had a QTC interval well within normal range yesterday and does have a defibrillator placed and reports she has previously tolerated the medication well (presently prescribed y her PCP) and the potential therapeutic benefits are felt to outweigh the potential risks presently. She was in agreement with dose escalation as recommended. Parkinson disease: -Continue carbidopa-levodopa -No acute parkinsonian symptoms DVT prophylaxis: Lovenox subcutaneous 40 mg daily for 6 weeks at least Discharge to [facility] Follow-up with [facility] on July 21, 2019 Follow-up up with primary care physician and psychiatrist after [facility] Total Time Total Time Spent Total Time Spent (In Minutes): 60 minutes Discharge Plan Discharge Items Patient Disposition: Transfer [facility] Reason For Visit: RIGHT DIABETIC FOOT INECTION Discharge Diagnosis: RIGHT DIABETIC FOOT INFECTION, STATUS POST TRANSMETATARSAL AMPUTATION Activity: As commented below Activity Comment: Please refer to orthopedic recommendations below Driving/Machine Use: No driving Non-emergency contact: Primary Care Provider and Surgeon Call non-emergency contact if: you have any medication questions, your symptoms worsen, your pain is not controlled, your pain is worsening, your pain is unusual for you, your pain is concerning for you, you have a fever, your temperature is above 101, your wound has increased redness, your wound has increased drainage and your wound pain has increased Follow-up/Referrals: Robert Quiros MD [Surgeon] - 07/21/19 10:30 am Reginaldo Ramirez, [Primary Care Provider] - Diet: Carb Consistent or DM2 and Heart Healthy Addtl Attending Provider Instructions: Please refer to orthopedic service recommendations below. Insulin regimen instructions: Basal insulin - decreased Lantus qAM based on BSG (starting 1/4 AM) - 5 units for BSG less than 110 mg/dL - 10 units for BSG 110 mg/dL or greater Bolus insulin - loosened NovoLog per scale ACHS or Q6hrs while NPO with one overnight check Goal Range: Low 110 mg/dL - High 140 mg/dL Correction Factor: 20 mg/dL/unit Nutritional / Prandial insulin per carb ratio of 1 unit per 7 grams CHO consumed Please monitor blood glucose closely and titrate insulin accordingly. Please refer to accompanying hospital discharge summary for further details. Addtl Midlevel Provider Provider Instructions: Non weight bearing right foot. Use wheelchair as needed to assist with ambulation. Ice to right foot as needed for pain/swelling. Keep dressing on right foot and splint on at all times. Reinforce dressings as needed right foot. Elevate right foot above heart as needed for pain/swelling. Follow up with Dr. Quiros on 07/21/19 as scheduled. Follow up with [facility] on 07/21/[address] Quiros appointment for application of total contact cast. Pending Studies at Discharge: Yes Studies:: Repeat CBC and basic metabolic profile in 1 week Stand-Alone Forms: My [facility] Skilled Items Patient informed of condition?: Yes DNR: No Discharge Level of Care: Skilled Communicable Disease: No Discharge Prognosis: Stable Lines: None Urinary Catheter: No Medications and DC Order Prescriptions: New acetaminophen [Mapap (acetaminophen)] 325 mg Tablet 650 mg PO Q4H PRN (Reason: fever or pain) 30 Days Qty: 30 RF: 0 doxycycline hyclate 100 mg Capsule 100 mg PO Q12H 7 Days Qty: 14 RF: 0 enoxaparin 40 mg/0.4 mL Syringe 40 mg subcut QAM 42 Days Qty: 16.8 RF: 0 escitalopram oxalate 20 mg Tablet 20 mg PO DAILY 30 Days Qty: 30 RF: 0 oxycodone 5 mg Tablet 5 - 10 mg PO Q6H PRN (Reason: pain) 10 Days Qty: 14 RF: 0 Culturelle 10 billion cell capsule 1 cap PO DAILY Qty: 30 RF: 2 Continued carbidopa-levodopa 25-100 mg tablet 1 tab PO QID Qty: 120 RF: 5 multivitamin tablet 1 tab PO QAM RF: 0 metronidazole 0.75 % cream 1 appln topical DAILY RF: 0 ipratropium bromide 0.03 % spray,non-aerosol 2 sprays INTNAS TID RF: 0 aspirin 81 mg Tablet,Delayed Release (Dr/Ec) 81 mg PO QAM RF: 0 metoprolol succinate 50 mg tablet extended release 24 hr 50 mg PO Q12H RF: 0 albuterol sulfate 90 mcg/actuation HFA aerosol inhaler 2 puff Inhalation Q4H PRN (Reason: Wheezing) RF: 0 polyethylene glycol 3350 [Miralax] 17 gram powder in packet 17 gm PO DAILY RF: 0 atorvastatin 40 mg tablet 40 mg PO QAM RF: 0 clopidogrel 75 mg tablet 75 mg PO HS RF: 0 docusate sodium [Colace] 100 mg Capsule 100 mg PO BID RF: 0 pantoprazole 40 mg tablet,delayed release (DR/EC) 40 mg PO DAILY RF: 0 nitroglycerin 0.4 mg tablet, sublingual 0.4 mg Sublingual DIRECTED PRN (Reason: Chest Pain) RF: 0 ondansetron 4 mg tablet,disintegrating 4 mg Translingual Q8H PRN (Reason: Nausea) RF: 0 sennosides-docusate sodium [Senokot-S] 8.6-50 mg tablet 2 tab PO BID PRN (Reason: constipation) Qty: 30 RF: 3 Changed insulin glargine 100 unit/mL solution 5 unit subcut QAM 30 Days Qty: 0 RF: 0 insulin aspart U-100 100 unit/mL insulin pen 1 units subcut ACHS 30 Days Qty: 0.3 RF: 0 Discontinued amlodipine 5 mg tablet 5 mg PO DAILY RF: 0 escitalopram oxalate 10 mg tablet 15 mg PO DAILY RF: 0 isosorbide mononitrate 30 mg tablet extended release 24 hr 90 mg PO QAM RF: 0 Discharge Orders: Discharge Order (Routine); Ordered 07/17/19 Ordered By: Leobardo Cook Admission Data Admit Date/Time: 07/10/19 17:18 Attending Provider: Leobardo Cook Admit Provider: Mirna Stephenson Primary Care Provider: Reginaldo Ramirez Other Providers: [facility] ; Mrina Stephenson ; Robert Quiros ; Dayday Palmer ; [facility], Other Interventions: Discharge Summary Assessment (RN) Last Done: 07/17/19 14:03
--- NOTE | 2019-07-17 15:43 | Communication Note ---
Date of Service: July 17, 2019 called [facility] to cancel all Rx including Oxycodone Oxycodone re-transmitted to [facility] Leobardo Cook MD
[2019-07-17] MEDS ORDERED: DOXYCYCLINE HYCLATE 100 MG CAP PO SCH (18:00)
[2019-07-18] MEDS ORDERED: INSULIN ASPART 100 UNITS/ML 3 ML PEN SC ONE (02:00)
[2019-07-18] MEDS ORDERED: INSULIN GLARGINE SOLOSTAR 100 UNITS/ML 3 ML PEN SC SCH (09:00)
[2019-07-18] MEDS ORDERED: ENOXAPARIN INJ 40 MG/0.4 ML SYR SQ SCH (09:00)
== END 2019-07-17 19:20 | DRG 240 ==
LOC: ED 14:44 → SUATTDRO 17:18 → 3N 17:18

== ENCOUNTER 2020-07-31 11:22 | Inpatient (IN) ==
[2020-07-31] MEDS ORDERED: ONDANSETRON INJ 2 MG/ML 2 ML VIAL IV STA (12:05)
--- NOTE | 2020-07-31 12:13 | Emergency Department Note ---
History of Present Illness General Chief Complaint: Abdominal Pain Time Seen by Provider: 07/31/20 11:46 Source: patient and RN notes reviewed Mode of arrival: EMS Limitations: no limitations History of Present Illness Provider Complaint: abdominal pain Maximum Pain Intensity: 10 This is a 65-year-old female who presents to the ED with a chief complaint of abdominal pain to the nurse but to me complaint of rectal pain for the past couple of days. She also reports a tightness in her upper abdomen and lower chest area. She has associated nausea. She states that she has not had a bowel movement for a while. When asked her what bothers her if there is 1 thing I could fix what would it be, she reported her shortness of breath. The patient seems to have multiple complaints and not of which seem to be congruent with what was reported to the nurse. The patient states that she lives with her sister who is 10 years younger. She has history of cholecystectomy and appendectomy. She is in no distress. Home Medications Medication Instructions Recorded Confirmed Type atorvastatin 40 mg PO QPM 04/02/18 07/31/20 History clopidogrel 75 mg PO HS 04/02/18 07/31/20 History docusate sodium [Colace] 100 mg PO BIDM 04/02/18 07/31/20 History nitroglycerin 0.4 mg SUBLINGUAL DIRECTED PRN 04/02/18 07/31/20 History pantoprazole 40 mg PO DAILYBB 04/02/18 07/31/20 History aspirin 81 mg PO QAM 05/02/18 07/31/20 History metoprolol succinate [Toprol XL] 50 mg PO BID 08/21/18 07/31/20 History multivitamin 1 tab PO QDB 02/06/19 07/31/20 History carbidopa 25 mg-levodopa 100 mg 1 tab PO QID 30 Days #120 tab 07/31/19 07/31/20 Rx tablet escitalopram oxalate 20 mg PO QAM 08/17/19 07/31/20 History insulin glargine [Lantus U-100 17 unit SUBCUT BID 08/17/19 07/31/20 History Insulin] acetaminophen 650 mg PO DAILY PRN 07/11/20 07/31/20 History amlodipine 5 mg PO QAM 07/11/20 07/31/20 History cyclosporine [Restasis] 1 drp OPB Q12H 07/11/20 07/31/20 History ketoconazole 1 applic TOPICAL DAILY 07/11/20 07/31/20 History Lactobacillus acidoph-L.bulgar 1 tab PO DAILY 07/31/20 07/31/20 History [Floranex] oxycodone 5 mg PO Q6H 07/31/20 07/31/20 History Allergies Allergy/AdvReac Type Severity Reaction Status Date / Time bee venom protein (honey bee) Allergy Severe SWELLING Verified 07/31/20 13:13 lidocaine Allergy Severe ANAPHYLAXIS Verified 07/31/20 13:13 morphine Allergy Mild itching Verified 07/31/20 13:13 tramadol Allergy Mild ITCHING Verified 07/31/20 13:13 trazodone Allergy Mild ITCHING Verified 07/31/20 13:13 Past Med/Surg History Medical History (Updated 07/31/20 @ 16:16 by Darion Hernandez DO) Acquired claw toe of left foot Amputated toe of right foot Asthma Callus Coronary atherosclerosis of [place] coronary vessel (08/24/11) s/p CABG (SVG to OM, SVT to OM2, MEHTA to LAD) on 04/05/1998 s/p HEIDY x2 (LM and LAD) in 06/2012" Depression 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 Surgical History H/O eye surgery H/O: hysterectomy SUZY History of amputation of lesser toe of right foot History of appendectomy History of cholecystectomy S/P implantation of automatic cardioverter/defibrillator (AICD) S/P triple vessel bypass 1997 Family History Mother Heart disease Hypertension Brother Asthma Brother Diabetes Father Diabetes Social History Smoking Status: Never smoker Tobacco Type: Cigarettes Second Hand Exposure: No; Hx Alcohol Use: Yes Alcohol type: wine Hx Substance Use: No Preferred Language: [place] Communication Ability: Effective Visual Impairment: Limited Hearing Ability: Normal Compress Trucker Required: No Beliefs That Will Affect Care: None marital status: / Current Living Situation: Family Current Living Situation Comment: lives with sisterSarah current occupational status: disabled Feels Safe at Home: Yes Assistive Devices: Denture - Upper and Walker Review of Systems A total of 10 systems reviewed and were otherwise negative Physical Exam Vital Signs: Vital Signs - 24 hr 07/31/20 11:30 07/31/20 11:31 07/31/20 12:00 Temperature 37.1 C Temperature Source Oral Pulse Rate 71 72 70 Pulse Rate [Apical ] 72 Pulse Rate from Sp O2 Sensor 71 66 Respiratory Rate 14 14 12 Respiratory Effort / Characteristics Non-Labored Sponta neous Respiratory Depth Normal Respiratory Patter n Regular Blood Pressure 114/68 114/68 Blood Pressure [Ri ght Arm] 114/68 Blood Pressure Adore n 78 83 Blood Pressure Adore n [Right Arm] 83 Pulse Oximetry 97 95 95 Oxygen Delivery Me thod Room Air Room Air Sepsis Recent Feve r Within 48 Hours No Sepsis New/Unexpla ined Change in Men manish Status No Sepsis Action Take n by Nursing No Action Required 07/31/20 12:14 07/31/20 12:30 07/31/20 13:00 Temperature Temperature Source Pulse Rate 72 86 104 H Pulse Rate [Apical ] Pulse Rate from Sp O2 Sensor Respiratory Rate 20 14 20 Respiratory Effort / Characteristics Respiratory Depth Respiratory Patter n Blood Pressure Blood Pressure [Ri ght Arm] Blood Pressure Adore n Blood Pressure Adore n [Right Arm] Pulse Oximetry 95 Oxygen Delivery Me thod Room Air Sepsis Recent Feve r Within 48 Hours Sepsis New/Unexpla ined Change in Men manish Status Sepsis Action Take n by Nursing 07/31/20 13:30 07/31/20 13:31 07/31/20 14:00 Temperature Temperature Source Pulse Rate 80 80 77 Pulse Rate [Apical ] Pulse Rate from Sp O2 Sensor Respiratory Rate 18 19 20 Respiratory Effort / Characteristics Respiratory Depth Respiratory Patter n Blood Pressure 132/102 H 110/62 Blood Pressure [Ri ght Arm] Blood Pressure Adore n 107 80 Blood Pressure Adore n [Right Arm] Pulse Oximetry 95 95 Oxygen Delivery Me thod Sepsis Recent Feve r Within 48 Hours Sepsis New/Unexpla ined Change in Men manish Status Sepsis Action Take n by Nursing 07/31/20 14:31 07/31/20 15:00 07/31/20 15:30 Temperature Temperature Source Pulse Rate 80 108 H Pulse Rate [Apical ] Pulse Rate from Sp O2 Sensor Respiratory Rate 20 20 15 Respiratory Effort / Characteristics Respiratory Depth Respiratory Patter n Blood Pressure 150/59 H 170/101 H Blood Pressure [Ri ght Arm] Blood Pressure Adore n 85 123 Blood Pressure Adore n [Right Arm] Pulse Oximetry 96 Oxygen Delivery Me thod Sepsis Recent Feve r Within 48 Hours Sepsis New/Unexpla ined Change in Men manish Status Sepsis Action Take n by Nursing Physical Exam: CONSTITUTIONAL/VITAL SIGNS: Reviewed / noted above. GENERAL: Non-toxic in appearance. Patient is comfortable. INTEGUMENTARY: Warm, dry, and [place]. HEAD: Normocephalic. EYES: without scleral icterus or trauma. ENT/OROPHARYNX: clear and moist. LYMPHADENOPATHY/NECK: Is supple without lymphadenopathy or meningismus. RESPIRATORY: Lungs clear and equal. No increased work of breathing. CARDIOVASCULAR: Regular rate and rhythm. GI/ABDOMEN: Soft and mildly tender diffusely. No organomegaly or pulsatile mass. No rebound or guarding. Normal bowel sounds. EXTREMITIES: Warm and well perfused. BACK: No CVA tenderness. NEUROLOGICAL: Intact without focal deficits. PSYCHIATRIC: normal affect. MUSCULOSKELETAL: Normally developed with good muscle tone. RECTAL: Normal rectal tone. Soft stool in the rectal vault. Guaiac negative. TRIAGE NURSING DOCUMENTATION REVIEWED. Course Administered Medications Discontinued Medications Sodium Chloride (Nss) 500 mls @ 999 mls/hr IV .Q31M YANG Stop: 07/31/20 12:45 Last Infusion: 07/31/20 13:14 Dose: 0 mls/hr Documented by: [id number] Admin: 07/31/20 12:18 Dose: 999 mls/hr Documented by: [id number] Ketorolac Tromethamine (Ketorolac 30 Mg/Ml Vial) 30 mg IV NOW STA Stop: 07/31/20 14:58 Last Admin: 07/31/20 15:21 Dose: 30 mg Documented by: [id number] Ondansetron HCl (Ondansetron Inj 2 Mg/Ml 2 Ml Vial) 4 mg IV NOW STA Stop: 07/31/20 12:06 Last Admin: 07/31/20 12:18 Dose: 4 mg Documented by: [id number] Medical Decision Making Differential Diagnosis Differential considered: pancreatitis, hepatitis, acute cholecystitis, AAA, UTI, pyelonephritis, kidney stones, appendicitis, diverticulitis, shingles, bowel obstruction, mesenteric ischemia, intussusception,hernia cardiac and pulmonary issues considered. Medical Records Attestation: I reviewed the patient's medical records. Home Medications Current Medication List: was personally reviewed by me Laboratory Data Attestation: I reviewed the patient's lab results. Result diagrams: 07/31/20 11:37 07/31/20 11:37 Lab Results 07/31/20 07/31/20 Range/Units 11:37 11:37 WBC 11.83 H (4.8-10.8) K/uL RBC 4.05 L (4.2-5.4) M/uL Hgb 11.6 L (12.0-16.0) g/dL Hct 36.1 L (37-47) % MCV 89.1 (80-100) fL MCH 28.6 (25-34) pg MCHC 32.1 (32-36) g/dL RDW Std Deviation 41.4 (36.4-46.3) fL RDW Coeff of [place] 12.9 (11.5-14.5) % Plt Count 250 (130-400) K/uL MPV 10.9 H (7.4-10.4) fL Immature Gran % (Auto) 0.1 % Neut % (Auto) 64.8 % Lymph % (Auto) 29.2 % [place] % (Auto) 5.2 % Eos % (Auto) 0.4 % Baso % (Auto) 0.3 % Neut # (Auto) 7.66 H (1.4-6.5) K/uL Lymph # (Auto) 3.46 H (1.2-3.4) K/uL [place] # (Auto) 0.62 H (0.11-0.59) K/uL Eos # (Auto) 0.05 (0-0.5) K/uL Baso # (Auto) 0.03 (0-0.2) K/uL Immature Gran # (Auto) 0.01 (0.00-0.02) K/uL Sodium 130 L (136-145) mmol/L Potassium 3.7 (3.5-5.1) mmol/L Chloride 103 (98-107) mmol/L Carbon Dioxide 31 (21-32) mmol/L Anion Gap -4.0 L (3-11) BUN 16 (7-18) mg/dl Creatinine 1.10 (0.6-1.2) mg/dl Est Cr Clr Drug Dosing 47.1 ml/min Est GFR ( Amer) 60.2 Est GFR (Non-Af Amer) 51.9 BUN/Creatinine Ratio 14.3 (10-20) Glucose 193 H (70-99) mg/dl Calcium 9.8 (8.5-10.1) mg/dl Total Bilirubin 0.5 (0.2-1) mg/dl AST 17 (15-37) U/L ALT 28 (12-78) U/L Alkaline Phosphatase 62 (45-117) U/L Troponin I < 0.015 (0-0.045) ng/ml Total Protein 8.5 H (6.4-8.2) gm/dl Albumin 3.5 (3.4-5.0) gm/dl Globulin 5.0 H (2.5-4.0) gm/dl Albumin/Globulin Ratio 0.7 L (0.9-2) Lipase 121 (73-393) U/L Imaging Data Radiologist's Impression: XR chest 1V portable HISTORY: Atypical chest pain. COMPARISON: Chest 07/11/2020. FINDINGS: Left-sided pacemaker/defibrillator and poststernotomy changes are again noted. The heart is normal in size. The lungs are clear. No pleural effusions. No pneumothorax. No evidence for pulmonary edema. Prior cholec ystectomy. IMPRESSION: No significant change compared to the prior study. No acute process. CT scan of the abdomen pelvis:IMPRESSION: 1. There is a large rectal stool ball measuring 8 cm in diameter. There is mild rectal wall thickening for the degree of distention and mild perirectal edema. This could represent a stercoral proctitis. 2. Moderate well-formed stool seen throughout the remaining colon consistent with constipation. 3. No evidence for bowel obstruction. 4. Additional findings as described above. ECG Data Attestation: I personally reviewed and interpreted this ECG as follows: Indication: chest pain Rate (beats per minute): 72 Rhythm: normal sinus Findings: no PVC and no ST elevation MDM Narrative This is a 65-year-old female who presents to the ED with multiple complaints. She told the nurse she was having upper abdominal pain. She told me she was having rectal pain. She also reported to me shortness of breath and some nausea. History of cholecystectomy and appendectomy. Abdominal exam revealed some mild diffuse tenderness. Exam was otherwise unremarkable. Her vital signs were normal. CT scan as noted above. There is an 8 cm stool ball in the rectal vault with some mild perirectal edema and changes concerning for stercoral proctitis. There is also moderate well-formed stool in the remaining colon consistent with constipation. The patient's white blood cell count is slightly elevated. Glucose is 193. Troponin is negative. Lipase is negative. Chest x- ray did not show acute process. EKG showed a normal sinus rhythm. The patient was given a molasses enema. I attempted several disimpactions and spent quite a bit of time with attempted disimpaction's. Some stool was removed but she still has a significant amount of soft stool in the rectal vault. She was unable to push the stool out on her own. Because the abnormal CT scan findings, leukocytosis and exam findings, the patient will need inpatient observation and further help with her fecal impaction. Impression & Plan Obstipation, Fecal impaction, Proctitis Discharge Plan Visit Data Chief Complaint: Abdominal Pain ED Provider: Darion Hernandez Discharge Problem: Obstipation, Fecal impaction, Proctitis Patient Disposition: Being Evaluated by Hospitalist Forms Stand Alone Forms: My [facility] Prescriptions Prescriptions: No Action carbidopa-levodopa 25-100 mg tablet 1 tab PO QID 30 Days Qty: 120 RF: 2 multivitamin tablet 1 tab PO QDB RF: 0 aspirin 81 mg Tablet,Delayed Release (Dr/Ec) 81 mg PO QAM RF: 0 metoprolol succinate [Toprol XL] 50 mg tablet extended release 24 hr 50 mg PO BID RF: 0 oxycodone 5 mg tablet 5 mg PO Q6H RF: 0 Lactobacillus acidoph-L.bulgar [Floranex] 1 million cell Tablet 1 tab PO DAILY RF: 0 atorvastatin 40 mg tablet 40 mg PO QPM RF: 0 clopidogrel 75 mg tablet 75 mg PO HS RF: 0 docusate sodium [Colace] 100 mg Capsule 100 mg PO BIDM RF: 0 pantoprazole 40 mg tablet,delayed release (DR/EC) 40 mg PO DAILYBB RF: 0 nitroglycerin 0.4 mg tablet, sublingual 0.4 mg Sublingual DIRECTED PRN (Reason: Chest Pain) RF: 0 Lantus U-100 Insulin 100 unit/mL solution 17 unit SUBCUT BID RF: 0 escitalopram oxalate 20 mg tablet 20 mg PO QAM RF: 0 acetaminophen 325 mg Tablet 650 mg PO DAILY PRN (Reason: Fever Or Pain) RF: 0 amlodipine 5 mg tablet 5 mg PO QAM RF: 0 Restasis 0.05 % dropperette 1 drp OPB Q12H RF: 0 ketoconazole 2 % shampoo 1 applic TOPICAL DAILY RF: 0 Referrals Referrals: Reginaldo Ramirez DO [Primary Care Provider] -
[2020-07-31] MEDS ORDERED: SODIUM CHLORIDE 0.9% 500 ML IV SCH (12:15)
[2020-07-31 12:22] LABS: Basophils # (auto) 0.03 K/uL (0-0.2); Basophils % (auto) 0.3 %; Eosinophils # (auto) 0.05 K/uL (0-0.5); Eosinophils % (auto) 0.4 %; Hematocrit (blood only) 36.1 % (37-47); Hemoglobin 11.6 g/dL (12.0-16.0); Immature Granulocytes # (auto) 0.01 K/uL (0.00-0.02); Immature Granulocytes % (auto) 0.1 %; Lymphocytes # (auto) 3.46 K/uL (1.2-3.4); Lymphocytes % (auto) 29.2 %; Mean Corpuscular Hemoglobin 28.6 pg (25-34); Mean Corpuscular Hgb Conc 32.1 g/dL (32-36); Mean Corpuscular Volume 89.1 fL (80-100); Mean Platelet Volume 10.9 fL (7.4-10.4); Monocytes # (auto) 0.62 K/uL (0.11-0.59); Monocytes % (auto) 5.2 %; Neutrophils # (auto) 7.66 K/uL (1.4-6.5); Neutrophils % (auto) 64.8 %; Platelet Count 250 K/uL (130-400); RDW Coefficient of Variation 12.9 % (11.5-14.5); RDW Standard Deviation 41.4 fL (36.4-46.3); Red Blood Count 4.05 M/uL (4.2-5.4); White Blood Count 11.83 K/uL (4.8-10.8)
[2020-07-31 12:27] LABS: Alanine Aminotransferase 28 U/L (12-78); Albumin Level 3.5 gm/dl (3.4-5.0); Aspartate Aminotransferase 17 U/L (15-37); BUN Creatinine Ratio 14.3 (10-20); Blood Urea Nitrogen 16 mg/dl (7-18); Calcium 9.8 mg/dl (8.5-10.1); Carbon Dioxide 31 mmol/L (21-32); Chloride 103 mmol/L (98-107); Creatinine Clr Calc Pharmacy 47.1 ml/min; Est GFR (African American) 60.2; Est GFR (Non-African American) 51.9; Glucose 193 mg/dl (70-99); Lipase 121 U/L (73-393); Potassium 3.7 mmol/L (3.5-5.1)
--- NOTE | 2020-07-31 12:28 | XRay Report ---
XR chest 1V portable HISTORY: Atypical chest pain. COMPARISON: Chest 07/11/2020. FINDINGS: Left-sided pacemaker/defibrillator and poststernotomy changes are again noted. The heart is normal in size. The lungs are clear. No pleural effusions. No pneumothorax. No evidence for pulmonar y edema. Prior cholecystectomy. IMPRESSION: No significant change compared to the prior study. No acute process. ACT 112: Negative or not required by law. Electronically signed by: Teofilo Barnett M.D. 07/31/2020 12:26 PM
[2020-07-31 12:32] LABS: Albumin Globulin Ratio 0.7 (0.9-2); Alkaline Phosphatase 62 U/L (45-117); Bilirubin,Total 0.5 mg/dl (0.2-1); Total Protein 8.5 gm/dl (6.4-8.2); Troponin I < 0.015 ng/ml (0-0.045)
--- NOTE | 2020-07-31 12:53 | CT Scan Report ---
ABDOMEN AND PELVIS CT WITHOUT CONTRAST CT DOSE: 377.73 mGy.cm HISTORY: diffuse abdominal and rectal pain, hx devin appy TECHNIQUE: Multiaxial CT images of the abdomen and pelvis were performed without contrast. A dose lo wering technique was utilized adhering to the principles of ALARA. COMPARISON STUDY: Abdomen and pelvis CT 02/24/2019. FINDINGS: The lung bases are clear. No pneumoperitoneum. No pneumatosis. No suspicious lytic or blast ic osseous lesions. Poststernotomy changes and pacemaker wires are partially visualized. There is mil d diffuse body wall edema. Cholecystectomy. The unenhanced liver, spleen, right adrenal gland, and pa ncreas are unremarkable. No renal or ureteral stones. No hydronephrosis. Stable 2.2 cm left adrenal g land nodule. This is likely benign given the long-term stability. No retroperitoneal lymphadenopathy. Normal caliber abdominal aorta. The bladder is unremarkable. The uterus is surgically absent. There is a large rectal stool ball measuring 8 cm in diameter. There is mild rectal wall thickening for the degree of distention and mild perirectal edema. This could represent a stercoral proctitis. There is moderate well-formed stool seen throughout the remaining colon. The appendix is not identified and r eportedly surgically absent. IMPRESSION: 1. There is a large rectal stool ball measuring 8 cm in diameter. There is mild rectal wall thickenin g for the degree of distention and mild perirectal edema. This could represent a stercoral proctitis. 2. Moderate well-formed stool seen throughout the remaining colon consistent with constipation. 3. No evidence for bowel obstruction. 4. Additional findings as described above. ACT 112: Negative or not required by law. Electronically signed by: Teofilo Barnett M.D. 07/31/2020 12:51 PM
[2020-07-31] MEDS ORDERED: KETOROLAC 30 MG/ML VIAL IV STA (14:57)
--- NOTE | 2020-07-31 17:40 | History & Physical Report ---
Date of Service July 31, 2020 Assessment & Plan (1) Fecal impaction: (2) Proctitis: (3) Obstipation: Patient presenting to the ED with several days of severe constipation, abdominal pain, and rectal pain. Admit for Obs to Med/Surg. Patient given milk of molasses enema in the ED and was attempted to be disimpacted multiple times with little success. Very small amount of stool movement since presentation. CT Abd/Pelvis showed 8 cm stool ball in the rectum with moderate stool throug hout otherwise along with proctitis. Recommended admission for further management. Start daily Miralax, Sennakot-S, daily fleet enema- hold for diarrhea. Clear liquid diet for now with NPO after midnight. GI consultation HOLD narcotic analgesics- potentially contributory factor if patient had Oxycodone as outpatient PT/OT to encourage movement Recheck CBCD, CMP in AM Seems likely that proctitis is secondary to fecal impaction rather than infectious (4) Hyponatremia: Sodium of 130. NSS x 1 liter Recheck Urine OSM & Sodium, Serum OSM Recheck in AM (5) Diabetes mellitus type 2 with complications: Sliding scale and Lantus 8 units BID Check A1C in AM (6) Parkinson disease: Possibly contributing to constipation as well. Hold Iron for now (7) Diastolic CHF: Monitor fluid status & BP. Continue home medications otherwise. (8) DVT prophylaxis: SQ Lovenox daily History of Present Illness Chief Complaint: Fecal impaction, proctitis Primary Care Provider: Reginaldo Ramirez DO Patient is a 65 yo female with history of Type 2 DM, CKD, dyslipidemia, SACHA, hypertension, diastolic heart failure, CAD within history of stent and ICD placement, Parkinson's, and chronic constipation. She presented to the ED today with constipation, rectal and abdominal pain. She states that she hasn't moved her bowels for 2-3 days probably. She typically does use Sennakot-S and stool softener daily. These haven't worked for her the past few days. CT of the Abd/Pelvis on admission showed a large rectal stool ball measuring 8 cm and mild rectal wall thickening with mild perirectal edema, possibly stercoral proctitis. She also is noted to have moderate stool throughout the remaining colon. WBC count is very mildly elevated. Sodium is slightly low at 130. During exam, patient describes 10/10 pain in rectum. Very little abdominal pain. COVID negative. No chest pain, urinary symptoms, or edema. Patient was given a milk of molasses enema in the ED and also was attempted disimpaction multiple times with little success. Patient is very delayed to answering questions. She is difficulty to illicit a history from. Of note, her med rec shows that she was prescribed Oxycodone as an outpatient x 7 tablets on 07/23/20 but patient does not mention this medication in discussion. Allergies Allergy/AdvReac Type Severity Reaction Status Date / Time bee venom protein (honey bee) Allergy Severe SWELLING Verified 07/31/20 13:13 lidocaine Allergy Severe ANAPHYLAXIS Verified 07/31/20 13:13 morphine Allergy Mild itching Verified 07/31/20 13:13 tramadol Allergy Mild ITCHING Verified 07/31/20 13:13 trazodone Allergy Mild ITCHING Verified 07/31/20 13:13 Home Medications Medication Instructions Recorded Confirmed Type atorvastatin 40 mg PO QPM 04/02/18 07/31/20 History clopidogrel 75 mg PO HS 04/02/18 07/31/20 History docusate sodium [Colace] 100 mg PO BIDM 04/02/18 07/31/20 History nitroglycerin 0.4 mg SUBLINGUAL DIRECTED PRN 04/02/18 07/31/20 History pantoprazole 40 mg PO DAILYBB 04/02/18 07/31/20 History aspirin 81 mg PO QAM 05/02/18 07/31/20 History metoprolol succinate [Toprol XL] 50 mg PO BID 08/21/18 07/31/20 History multivitamin 1 tab PO QDB 02/06/19 07/31/20 History carbidopa 25 mg-levodopa 100 mg 1 tab PO QID 30 Days #120 tab 07/31/19 07/31/20 Rx tablet escitalopram oxalate 20 mg PO QAM 08/17/19 07/31/20 History insulin glargine [Lantus U-100 21 unit SUBCUT DAILY 08/17/19 07/31/20 History Insulin] acetaminophen 650 mg PO DAILY PRN 07/11/20 07/31/20 History amlodipine 5 mg PO QAM 07/11/20 07/31/20 History cyclosporine [Restasis] 1 drp OPB Q12H 07/11/20 07/31/20 History ketoconazole 1 applic TOPICAL DAILY 07/11/20 07/31/20 History Lactobacillus acidoph-L.bulgar 1 tab PO DAILY 07/31/20 07/31/20 History [Floranex] ferrous sulfate 325 mg PO BID 07/31/20 07/31/20 History Past Med/Surg History Medical History (Updated 07/31/20 @ 18:24 by Alisha Viera PA-C) Acquired claw toe of left foot Amputated toe of right foot Asthma Callus Coronary atherosclerosis of [place] coronary vessel (08/24/11) s/p CABG (SVG to OM, SVT to OM2, MEHTA to LAD) on 04/05/1998 s/p HEIDY x2 (LM and LAD) in 06/2012" Depression 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 Surgical History H/O eye surgery H/O: hysterectomy SUZY History of amputation of lesser toe of right foot History of appendectomy History of cholecystectomy S/P implantation of automatic cardioverter/defibrillator (AICD) S/P triple vessel bypass 1997 Family History Mother Heart disease Hypertension Brother Asthma Brother Diabetes Father Diabetes Social History Smoking Status: Never smoker Tobacco Type: Cigarettes Second Hand Exposure: No; Hx Alcohol Use: Yes Alcohol type: hard liquor Hx Substance Use: No Preferred Language: Kiswahili Communication Ability: Effective Visual Impairment: Limited Hearing Ability: Normal Demand Generator Manager Required: No Beliefs That Will Affect Care: None marital status: / Current Living Situation: Family Current Living Situation Comment: lives with sister and her daughters current occupational status: disabled Other Information That Helps Us Care for You: No Feels Safe at Home: Yes Safety Concerns: Feels Safe At This Time Assistive Devices: None Review of Systems Review of Systems: All systems reviewed & are unremarkable except as noted in HPI & below Physical Exam Constitutional: well developed, + obese and + behavioral limitations (Slow speech, limited responses); no acute distress Eyes: PERRL, conjunctivae normal, anicteric sclerae ENMT: Ears: no hearing impairment Neck: trachea midline, no thyromegaly Respiratory: normal respiratory effort, lungs clear to auscultation Cardiovascular: RRR, no murmur, no edema Gastrointestinal (Abdomen): Inspection/Auscultation: abdomen not distended Percussion/Palpation: abdomen soft and + abdominal mass (Note abdomen feels full cora LLQ); abdomen nontender, no guarding and abdomen not rigid Musculoskeletal: Head/Neck/Chest: normocephalic and head atraumatic Extremities: + foot abnormality (History of toes amputation) Skin: no rashes, warm and dry Neurologic: CN's II-XI intact bilaterally; not confused Speech / Cognition: + abnormal speech (slow speech, slow to answer questions. Does not answer some.) Psychiatric: Orientation: alert Affect: + flat affect Results & Data Results & Data ([facility]) Vital Signs (Past 12 Hours) Vital Signs Temp Pulse Pulse Resp BP BP Pulse Ox 07/31/20 17:00 79 13 124/61 95 07/31/20 16:30 86 18 123/71 95 07/31/20 16:01 92 H 20 135/78 96 07/31/20 16:00 95 H 20 07/31/20 15:30 15 170/101 H 07/31/20 15:00 108 H 20 07/31/20 14:31 80 20 150/59 H 96 07/31/20 14:00 77 20 110/62 95 07/31/20 13:31 80 19 132/102 H 95 07/31/20 13:30 80 18 07/31/20 13:00 104 H 20 07/31/20 12:30 86 14 07/31/20 12:14 72 20 95 07/31/20 12:00 70 12 95 07/31/20 11:31 37.1 C 72 72 14 114/68 114/68 95 07/31/20 11:30 71 14 114/68 97 Laboratory Results Laboratory Results - last 24 hr 07/31/20 07/31/20 07/31/20 11:37 11:37 17:25 WBC 11.83 H RBC 4.05 L Hgb 11.6 L Hct 36.1 L MCV 89.1 MCH 28.6 MCHC 32.1 RDW Std Deviation 41.4 RDW Coeff of [place] 12.9 Plt Count 250 MPV 10.9 H Immature Gran % (Auto) 0.1 Neut % (Auto) 64.8 Lymph % (Auto) 29.2 [place] % (Auto) 5.2 Eos % (Auto) 0.4 Baso % (Auto) 0.3 Neut # (Auto) 7.66 H Lymph # (Auto) 3.46 H [place] # (Auto) 0.62 H Eos # (Auto) 0.05 Baso # (Auto) 0.03 Immature Gran # (Auto) 0.01 Sodium 130 L Potassium 3.7 Chloride 103 Carbon Dioxide 31 Anion Gap -4.0 L BUN 16 Creatinine 1.10 Est Cr Clr Drug Dosing 47.1 Est GFR ( Amer) 60.2 Est GFR (Non-Af Amer) 51.9 BUN/Creatinine Ratio 14.3 Glucose 193 H Calcium 9.8 Total Bilirubin 0.5 AST 17 ALT 28 Alkaline Phosphatase 62 Troponin I < 0.015 Total Protein 8.5 H Albumin 3.5 Globulin 5.0 H Albumin/Globulin Ratio 0.7 L Lipase 121 [facility]19 [facility] [place] SARS-CoV-2, RNA, NAAT 07/31/20 17:25 WBC RBC Hgb Hct MCV MCH MCHC RDW Std Deviation RDW Coeff of [place] Plt Count MPV Immature Gran % (Auto) Neut % (Auto) Lymph % (Auto) [place] % (Auto) Eos % (Auto) Baso % (Auto) Neut # (Auto) Lymph # (Auto) [place] # (Auto) Eos # (Auto) Baso # (Auto) Immature Gran # (Auto) Sodium Potassium Chloride Carbon Dioxide Anion Gap BUN Creatinine Est Cr Clr Drug Dosing Est GFR ( Amer) Est GFR (Non-Af Amer) BUN/Creatinine Ratio Glucose Calcium Total Bilirubin AST ALT Alkaline Phosphatase Troponin I Total Protein Albumin Globulin Albumin/Globulin Ratio Lipase COVID-19 Eval Order SARS-CoV-2, RNA, NAAT Pending Diagnostic Findings CT Abd/Pelvis: IMPRESSION: 1. There is a large rectal stool ball measuring 8 cm in diameter. There is mild rectal wall thickening for the degree of distention and mild perirectal edema. This could represent a stercoral proctitis. 2. Moderate well-formed stool seen throughout the remaining colon consistent with constipation. 3. No evidence for bowel obstruction. 4. Additional findings as described above. Code Status & VTE Plan VTE Prophylaxis Plan VTE Prophylaxis will be ordered: Yes Supervising Physician Co-Signing Physician Notes Patient is a 65-year-old female with history of diabetes, Parkinson's disease and other medical problems presents with history of constipation, last bowel movement 3 days ago she denies any abdominal pain, nausea, vomiting. Please review HPI for complete details of presentation. She admits to being on iron supplements and is also on narcotics for chronic pain. Please review HPI for complete details of presentation. CT abdomen showed large rectal stool ball measuring 8 cm, also noted mild lateral wall thickening with mild perirectal edema. On exam patient is obese, no apparent distress, slow to respond, normocephalic atraumatic, lungs--normal breath sounds, clear to auscultation, S1-S2 no murmur, + Pacermaker, no pedal edema, abdomen soft, nontender, no guarding or rigidity, decreased bowel sounds, alert, awake, grossly no focal neurological deficit. Patient is admitted for management of constipation secondary to fecal impaction, proctitis. Also noted abnormal UA but patient denies any urinary symptoms. Agree with bowel regimen, GI consult. Given history of colon cancer, patient may benefit from colonoscopy. Will empirically start on Rocephin and obtain urine cultures. I personally reviewed the record. Patient is interviewed and examined at bedside. Patient's care is coordinated with Alisha Viera PA-C. Please refer to the documentation above for details of patient's presentation and for discussion of other issues.
[2020-07-31] MEDS ORDERED: SODIUM CHLORIDE 0.9% 1000ML 1,000 ML IV SCH (18:25)
[2020-07-31] MEDS ORDERED: CARBOHYDRATES FOR HYPOGLYCEMIA PO PRN (18:25)
[2020-07-31] MEDS ORDERED: GLUCOSE 40% GEL 15 GM TUBE PO PRN (18:25)
[2020-07-31] MEDS ORDERED: GLUCOSE 10 TABS/TUBE PO PRN (18:25)
[2020-07-31] MEDS ORDERED: POLYETHYLENE (MIRALAX) 17 GM PACK PO SCH (18:25)
[2020-07-31] MEDS ORDERED: GLUCAGON FOR INJ 1 MG VIAL SQ PRN (18:25)
[2020-07-31] MEDS ORDERED: ACETAMINOPHEN 325 MG TAB PO PRN (18:25)
[2020-07-31] MEDS ORDERED: SOD PHOSPHATE/SOD BIPHOSPHATE ENEMA 132 ML BTL PR SCH (18:25)
[2020-07-31] MEDS ORDERED: DEXTROSE 50% 50 ML SYRINGE IV PRN (18:25)
[2020-07-31] MEDS: DOCUSATE SODIUM/SENNA 50/8.6MG TAB PO SCH (20:55)
[2020-07-31] MEDS: CARBIDOPA/LEVODOPA 25/100MG TAB PO SCH (20:56)
[2020-07-31] MEDS: ATORVASTATIN 40 MG TAB PO SCH (20:56)
[2020-07-31] MEDS: METOPROLOL SUCC 50MG EXT REL TAB PO SCH (20:57)
[2020-07-31] MEDS: ENOXAPARIN INJ 40 MG/0.4 ML SYR SQ SCH (20:57)
[2020-07-31] MEDS: CLOPIDOGREL BISULFATE 75 MG TAB PO SCH (20:58)
[2020-07-31] MEDS ORDERED: INSULIN ASPART 100 UNITS/ML 3 ML PEN SC SCH (21:00)
[2020-07-31] MEDS: INSULIN GLARGINE SOLOSTAR 100 UNITS/ML 3 ML PEN SC SCH (21:00)
[2020-07-31 21:46] LABS: Sodium 141 mmol/L (136-145)
[2020-08-01] MEDS ORDERED: LACTULOSE SYRUP 30 GM/45 ML UDP PO STA
[2020-08-01] MEDS ORDERED: KETOROLAC TROMETHAMINE 15 MG/ML VIAL IV ONE
[2020-08-01] MEDS ORDERED: Nursing to Pharmacy Communication SCH ×2 (00:15→14:45)
[2020-08-01] MEDS: RESTASIS - ORDER AWAITING ACTION SCH ×4 (00:16→23:25)
[2020-08-01] MEDS: INSULIN ASPART 100 UNITS/ML 3 ML PEN SC SCH ×4 (05:59→21:12)
[2020-08-01 06:12] LABS: Appearance Urine Turbid (Clear); Bacteria Urine Automated 3+ (Negative); Blood Urine 3+ (Negative); Color Urine Dark Yellow; Epithelial Cell Urine Auto >30 /lpf (0-5); Glucose Urine UA Negative (Negative); Ketones Urine 1+ (Negative); Leukocyte Esterase Urine 3+ (Negative); Nitrite Urine Positive (Negative); Protein Urine 2+ (Negative); Specific Gravity Urine 1.028 (1.000-1.030); Urobilinogen Urine Negative (Negative); WBC Urine Automated >30 /hpf (0-5)
--- NOTE | 2020-08-01 06:13 | Electrocardiogram Report ---
Test Reason : Blood Pressure : / mmHG Vent. Rate : 072 BPM Atrial Rate : 072 BPM P-R Int : 170 ms QRS Dur : 074 ms QT Int : 408 ms P-R-T Axes : 072 051 089 degrees QTc Int : 446 ms Normal sinus rhythm Cannot rule out Inferior infarct , age undetermined Cannot rule out Anterior infarct , age undetermined Nonspecific T wave abnormality Abnormal ECG When compared with ECG of 11-JUL-2020 12:48, No significant change Confirmed by Ammon Guerrero ([id number]) on 08/01/2020 6:13:36 AM Referred By: REFERRED SELF Confirmed By:Ammon Guerrero
[2020-08-01 06:15] LABS: Bilirubin Urine 1+ (Negative)
[2020-08-01 06:29] LABS: Cast Urine Automated 0 /lpf (0-5); RBC Urine Automated 0-4 /hpf (0-4)
[2020-08-01] MEDS: PANTOprazole 40 MG TAB PO SCH (06:36)
[2020-08-01 06:37] LABS: Basophils # (auto) 0.03 K/uL (0-0.2); Basophils % (auto) 0.2 %; Eosinophils # (auto) 0.09 K/uL (0-0.5); Eosinophils % (auto) 0.6 %; Hematocrit (blood only) 35.8 % (37-47); Hemoglobin 11.4 g/dL (12.0-16.0); Immature Granulocytes # (auto) 0.04 K/uL (0.00-0.02); Immature Granulocytes % (auto) 0.3 %; Lymphocytes # (auto) 3.15 K/uL (1.2-3.4); Lymphocytes % (auto) 21.2 %; Mean Corpuscular Hemoglobin 28.5 pg (25-34); Mean Corpuscular Hgb Conc 31.8 g/dL (32-36); Mean Corpuscular Volume 89.5 fL (80-100); Mean Platelet Volume 10.4 fL (7.4-10.4); Monocytes % (auto) 6.1 %; Neutrophils # (auto) 10.65 K/uL (1.4-6.5); Neutrophils % (auto) 71.6 %; Platelet Count 226 K/uL (130-400); RDW Coefficient of Variation 13.2 % (11.5-14.5); RDW Standard Deviation 42.9 fL (36.4-46.3); White Blood Count 14.86 K/uL (4.8-10.8)
[2020-08-01 07:17] LABS: Albumin Level 3.2 gm/dl (3.4-5.0); BUN Creatinine Ratio 15.7 (10-20); Calcium 9.9 mg/dl (8.5-10.1); Creatinine Clr Calc Pharmacy 51.3 ml/min; Est GFR (African American) 68.3; Potassium 3.9 mmol/L (3.5-5.1)
[2020-08-01 07:19] LABS: Albumin Globulin Ratio 0.7 (0.9-2); Bilirubin,Total 0.6 mg/dl (0.2-1); Globulin 4.6 gm/dl (2.5-4.0); Total Protein 7.8 gm/dl (6.4-8.2)
[2020-08-01 08:12] LABS: Estimated Average Glucose 217 mg/dl; Hemoglobin A1C 9.2 % (4.5-5.6)
[2020-08-01] MEDS ORDERED: POLYETHYLENE (MIRALAX) 17 GM PACK PO PRN (08:58)
[2020-08-01] MEDS ORDERED: SOD PHOSPHATE/SOD BIPHOSPHATE ENEMA 132 ML BTL PR PRN (08:58)
[2020-08-01] MEDS: INSULIN GLARGINE SOLOSTAR 100 UNITS/ML 3 ML PEN SC SCH ×2 (09:28→21:11)
[2020-08-01] MEDS: MULTIVITAMIN TAB PO SCH (09:29)
[2020-08-01] MEDS: ASPIRIN 81 MG ECTAB PO SCH (09:30)
[2020-08-01] MEDS: amLODIPine BESYLATE 5 MG TAB PO SCH (09:31)
[2020-08-01] MEDS: ESCITALOPRAM OXALATE 20 MG TAB PO SCH (09:31)
[2020-08-01] MEDS: METOPROLOL SUCC 50MG EXT REL TAB PO SCH ×2 (09:33→21:10)
[2020-08-01] MEDS: DOCUSATE SODIUM/SENNA 50/8.6MG TAB PO SCH ×2 (09:33→21:11)
[2020-08-01] MEDS: cefTRIAXone SODIUM 1,000 MG in DEXTROSE 5% 50 ML IV SCH (09:42)
[2020-08-01] MEDS: CARBIDOPA/LEVODOPA 25/100MG TAB PO SCH ×4 (09:46→21:11)
--- NOTE | 2020-08-01 11:47 | Gastrointestinal Consultation ---
Date of Consultation August 01, 2020 Assessment & Plan (1) Fecal impaction: Ms Roberta Pereyra is a 65 yr old female with Parkinson's who presented with a fecal impaction. Since admission she had good results from enema and Miralax. Will check an abd x-ray but does not seem to be distended or have abd discomfort on exam. Would discharge on Miralax 1-2 doses per day to affect one BM/day. May add Dulcolax if no BM in 24 hrs on the Miralax. Due for colonoscopy. Will arrange as OP. Present on Admission?: Yes Supervising Physician Co-Signing Physician Notes I performed a history and physical examination of the patient today, including specifically on physical exam - soft abdomen. I have discussed the patient's management with the advanced practitioner. Please refer to the nurse practitioner's note for the documented findings and plan of care. Patient needs a colonoscopy, she has FHx of colon cancer, family indicated it is difficult for OP prep due to her Parkisnons hence will prep for 2 days and do colonoscopy on Saturday. Clear liquids for 2 days. Golytely today and tomorrow. History of Present Illness Reason for Consultation: Constipation, fecal impaction Requesting Physician: Mary Wright PA-C Attending Physician: Roque Fernandez MD History of Present Illness Ms. Roberta Pereyra is a 65 yr old female pt of Dr. Ramirez with a hx of DM2, CHF, CAD, A-fib, SACHA, CKD-3, Parkinson's who was admitted on 07/[address] with rectal fecal impaction and rectal wall thickening. Since arrival, she has passed several BMs. Most recent colonoscopy was in 2014 with two 8mm polyps and she is overdue for surveillance colonoscopy which was recommended for 2019. This morning, she is very sleepy, arousible, oriented when awakened and denies any abdominal pain. On exam abd is soft. Allergies Allergy/AdvReac Type Severity Reaction Status Date / Time bee venom protein (honey bee) Allergy Severe SWELLING Verified 07/31/20 13:13 lidocaine Allergy Severe ANAPHYLAXIS Verified 07/31/20 13:13 morphine Allergy Mild itching Verified 07/31/20 13:13 tramadol Allergy Mild ITCHING Verified 07/31/20 13:13 trazodone Allergy Mild ITCHING Verified 07/31/20 13:13 Home Medications Medication Instructions Recorded Confirmed Type atorvastatin 40 mg PO QPM 04/02/18 07/31/20 History clopidogrel 75 mg PO HS 04/02/18 07/31/20 History docusate sodium [Colace] 100 mg PO BIDM 04/02/18 07/31/20 History nitroglycerin 0.4 mg SUBLINGUAL DIRECTED PRN 04/02/18 07/31/20 History pantoprazole 40 mg PO DAILYBB 04/02/18 07/31/20 History aspirin 81 mg PO QAM 05/02/18 07/31/20 History metoprolol succinate [Toprol XL] 50 mg PO BID 08/21/18 07/31/20 History multivitamin 1 tab PO QDB 02/06/19 07/31/20 History carbidopa 25 mg-levodopa 100 mg 1 tab PO QID 30 Days #120 tab 07/31/19 07/31/20 Rx tablet escitalopram oxalate 20 mg PO QAM 08/17/19 07/31/20 History insulin glargine [Lantus U-100 21 unit SUBCUT DAILY 08/17/19 07/31/20 History Insulin] acetaminophen 650 mg PO DAILY PRN 07/11/20 07/31/20 History amlodipine 5 mg PO QAM 07/11/20 07/31/20 History cyclosporine [Restasis] 1 drp OPB Q12H 07/11/20 07/31/20 History ketoconazole 1 applic TOPICAL DAILY 07/11/20 07/31/20 History Lactobacillus acidoph-L.bulgar 1 tab PO DAILY 07/31/20 07/31/20 History [Floranex] ferrous sulfate 325 mg PO BID 07/31/20 07/31/20 History Patient History Medical History (Updated 07/31/20 @ 18:24 by Alisha Viera PA-C) Acquired claw toe of left foot Amputated toe of right foot Asthma Callus Coronary atherosclerosis of [place] coronary vessel (08/24/11) s/p CABG (SVG to OM, SVT to OM2, MEHTA to LAD) on 04/05/1998 s/p HEIDY x2 (LM and LAD) in 06/2012" Depression 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 Surgical History H/O eye surgery H/O: hysterectomy SUZY History of amputation of lesser toe of right foot History of appendectomy History of cholecystectomy S/P implantation of automatic cardioverter/defibrillator (AICD) S/P triple vessel bypass 1997 Family History Mother Heart disease Hypertension Brother Asthma Brother Diabetes Father Diabetes Social History Smoking Status: Never smoker Tobacco Type: Cigarettes Second Hand Exposure: No; Hx Alcohol Use: Yes Alcohol type: hard liquor Hx Substance Use: No Preferred Language: Canadian Communication Ability: Effective Visual Impairment: Limited Hearing Ability: Normal Community Health Planning Director Required: No Beliefs That Will Affect Care: None marital status: / Current Living Situation: Family Current Living Situation Comment: lives with sister and her daughters current occupational status: disabled Other Information That Helps Us Care for You: No Feels Safe at Home: Yes Safety Concerns: Feels Safe At This Time Assistive Devices: None Review of Systems Review of Systems: ROS: Gen: + chronic weakness, No fevers or weight loss Eyes: No eye redness, or pain, no recent vision changes Resp: No SOB, no cough Cardio: No palpitations/irregular beats, no chest pain GI: Denies abdominal pain today; no nausea/vomiting : Denies pain on urination Skin: No jaundice, itching or new rashes Physical Exam Constitutional: WD/WN, vitals as above + ill appearing; not edematous Eyes: PERRL, conjunctivae normal, anicteric sclerae ENMT: external ear and nose normal, oropharynx normal Neck: trachea midline, no thyromegaly Respiratory: normal respiratory effort, lungs clear to auscultation Cardiovascular: RRR, no murmur, no edema Gastrointestinal (Abdomen): normal bowel sounds, soft, nontender, no hepatosplenomegaly very active BS Musculoskeletal: no cyanosis or clubbing, extremities motor strength 5/5 Skin: no rashes, warm and dry Neurologic: PERRL, EOMI, accommodation nl, no face palsy, no dysarthria Psychiatric: A+Ox3, euthymic affect Lymphatic: no cervical or axillary lymphadenopathy Results & Data ([facility]) Vital Signs (Past 12 Hours) Vital Signs Temp Pulse Resp BP Pulse Ox Pulse Ox 08/01/20 06:33 36.7 C 75 19 107/57 L 95 08/01/20 00:35 98 Laboratory Results WBC 14, Hb 4, Hct 11, Plates 226, Na 142, K 3.9, BUN 16, Cr 0.9, glucose 128. Diagnostic Findings Non contrast CT on 07/31/20: 1. There is a large rectal stool ball measuring 8 cm in diameter. There is mild rectal wall thickening for the degree of distention and mild perirectal edema. This could represent a stercoral proctitis. 2. Moderate well-formed stool seen throughout the remaining colon consistent with constipation. 3. No evidence for bowel obstruction. 4. Additional findings as described above. CXR 07/31/20: No significant change compared to the prior study. No acute process. Medications Administered Miralax, fleets enema
--- NOTE | 2020-08-01 12:06 | XRay Report ---
XR KUB/Abdomen 1 view CLINICAL HISTORY: constipation COMPARISON STUDY: 08/21/2018 FINDINGS: There are surgical clips within the right upper quadrant consistent with a prior cholecyste ctomy. There is no pathologic bowel dilatation. Fecal load is within normal limits. IMPRESSION: Nonobstructive bowel gas pattern. ACT 112: Negative or not required by law. Electronically signed by: Chau Meyers M.D. 08/01/2020 12:04 PM
[2020-08-01] MEDS ORDERED: LAVAGE SOLUTION 4000ML PO SCH (14:00)
--- NOTE | 2020-08-01 17:47 | Hospitalist Progress Note ---
Date of Service August 01, 2020 Assessment & Plan (1) Fecal impaction: (2) Proctitis: (3) Obstipation: Fecal impaction Stercoral proctitis -CT ABD:There is a large rectal stool ball measuring 8 cm in diameter. There is mild rectal wall thickening for the degree of distention and mild perirectal edema. This could represent a stercoral proctitis. Moderate well-formed stool seen throughout the remaining colon consistent with constipation. No evidence for bowel obstruction. Additional findings as described above. -Hold iron supplements, avoid narcotics -Received enema -KUB showed Nonobstructive bowel gas pattern. -Continue bowel regimen -Appreciate GI input -Plan for colonoscopy on Saturday -Encourage to ambulate Abnormal UA Urine culture pending Empirically started on Rocephin (4) Hyponatremia: Likely secondary to dehydration Creatinine levels normalized with IV fluids Monitor (5) Diabetes mellitus type 2 with complications: HbA1c: 9.2 Continue Insulin therapy Adjust meds as needed Monitor BGs (6) Parkinson disease: Possibly contributing to constipation as well. Continue home medication (7) Diastolic CHF: Monitor Volume status Continue home medications (8) DVT prophylaxis: SQ Lovenox Code Status Full Code Disposition P/OT prior to discharge Admission and Anticipated Discharge Date Admission Date: August 01, 2020 Subjective Patient is seen and examined at bedside Had bowel movements overnight KUB today showed nonobstructive bowel gas pattern Denies nausea, vomiting, abdominal pain, chest pain, dyspnea Offers no other complaints Review of Systems Review of Systems: All systems reviewed & are unremarkable except as noted in HPI & below Physical Exam Physical Exam: Physical Exam: Vitals signs as noted above General Appearance:Obese, no apparent distress Head: normocephalic, Atraumatic Eyes: normal inspection, EOMI Neck: supple, Trachea midline Respiratory/Chest: Normal breath sounds, CTA, +pacemaker Cardiovascular: S1, S2, No murmur Abdomen/GI:Soft, Non tender, Bowel sounds present Extremities/Musculoskelatal:normal inspection, no edema, Right toes S/P amputation Neurologic/Psych:grossly no focal neurological deficits, Slow to respond--baseline Skin: normal color, warm Results & Data Results & [facility]) Vital Signs (Past 12 Hours) Vital Signs Temp Pulse Resp BP Pulse Ox 08/01/20 16:29 36.7 C 80 16 118/72 98 08/01/20 06:33 36.7 C 75 19 107/57 L 95 Laboratory Results Short CBC 08/01/20 Range/Units 06:05 WBC 14.86 H (4.8-10.8) K/uL Hgb 11.4 L (12.0-16.0) g/dL Hct 35.8 L (37-47) % Plt Count 226 (130-400) K/uL BMP 07/31/20 08/01/20 11:37 06:05 Sodium 141 142 Potassium 3.9 Chloride 106 Carbon Dioxide 28 BUN 16 Creatinine 0.99 Glucose 128 H Calcium 9.9 Liver Function 08/01/20 Range/Units 06:05 Total Bilirubin 0.6 (0.2-1) mg/dl AST 16 (15-37) U/L ALT 12 (12-78) U/L Alkaline Phosphatase 74 (45-117) U/L Albumin 3.2 L (3.4-5.0) gm/dl Urine 08/01/20 Range/Units 05:45 Urine Color Dark Yellow Urine Appearance Turbid A (Clear) Urine pH 5.0 (4.5-7.5) Ur Specific [place] 1.028 (1.000-1.030) Urine Protein 2+ H (Negative) Urine Glucose (UA) Negative (Negative)
[2020-08-01] MEDS: ATORVASTATIN 40 MG TAB PO SCH (21:10)
[2020-08-01] MEDS: CLOPIDOGREL BISULFATE 75 MG TAB PO SCH (21:10)
[2020-08-01] MEDS: ENOXAPARIN INJ 40 MG/0.4 ML SYR SQ SCH (21:11)
[2020-08-02 06:46] LABS: Hematocrit (blood only) 37.1 % (37-47); Hemoglobin 11.8 g/dL (12.0-16.0); Mean Corpuscular Hemoglobin 28.6 pg (25-34); Mean Corpuscular Hgb Conc 31.8 g/dL (32-36); Mean Corpuscular Volume 89.8 fL (80-100); Mean Platelet Volume 10.8 fL (7.4-10.4); Platelet Count 218 K/uL (130-400); RDW Coefficient of Variation 13.4 % (11.5-14.5); RDW Standard Deviation 43.5 fL (36.4-46.3); Red Blood Count 4.13 M/uL (4.2-5.4); White Blood Count 9.61 K/uL (4.8-10.8)
[2020-08-02] MEDS: PANTOprazole 40 MG TAB PO SCH (06:46)
[2020-08-02 07:19] LABS: BUN Creatinine Ratio 17.6 (10-20); Calcium 9.6 mg/dl (8.5-10.1); Creatinine Clr Calc Pharmacy 56.4 ml/min; Est GFR (African American) 76.7; Est GFR (Non-African American) 66.2; Magnesium 1.9 mg/dl (1.8-2.4); Potassium 3.9 mmol/L (3.5-5.1)
[2020-08-02] MEDS ORDERED: LAVAGE SOLUTION 4000ML PO SCH (08:00)
[2020-08-02] MEDS: MULTIVITAMIN TAB PO SCH (08:33)
[2020-08-02] MEDS: ESCITALOPRAM OXALATE 20 MG TAB PO SCH (08:34)
[2020-08-02] MEDS: ASPIRIN 81 MG ECTAB PO SCH (08:34)
[2020-08-02] MEDS: amLODIPine BESYLATE 5 MG TAB PO SCH (08:34)
[2020-08-02] MEDS: DOCUSATE SODIUM/SENNA 50/8.6MG TAB PO SCH ×2 (08:34→22:10)
[2020-08-02] MEDS: CARBIDOPA/LEVODOPA 25/100MG TAB PO SCH ×4 (08:35→22:09)
[2020-08-02] MEDS: METOPROLOL SUCC 50MG EXT REL TAB PO SCH ×2 (08:35→22:09)
[2020-08-02] MEDS: cefTRIAXone SODIUM 1,000 MG in DEXTROSE 5% 50 ML IV SCH (08:35)
[2020-08-02] MEDS: RESTASIS - ORDER AWAITING ACTION SCH ×2 (08:44→15:48)
[2020-08-02] MEDS: INSULIN ASPART 100 UNITS/ML 3 ML PEN SC SCH ×4 (08:55→21:31)
[2020-08-02] MEDS: INSULIN GLARGINE SOLOSTAR 100 UNITS/ML 3 ML PEN SC SCH ×2 (08:56→21:34)
[2020-08-02] MEDS ORDERED: ONDANSETRON INJ 2 MG/ML 2 ML VIAL IV PRN (08:59)
--- NOTE | 2020-08-02 09:25 | Gastroenterology Progress Note ---
Date of Service August 02, 2020 Assessment & Plan (1) Fecal impaction: Ms Roberta Pereyra is a 65 yr old female with Parkinson's who presented with a fecal impaction. Since admission she had good results from enema and Miralax. Will place NG and administer Golyteley. Will also add one dose of Dulcolax 10mg once this morning. I spoke with her sister, Sarah who was in aggrement with the above plan. However, if pt refuses then we will respect her wishes. If prep refused then colonoscopy will need to be cancelled. Admission and Anticipated Discharge Date Admission Date: August 01, 2020 Supervising Physician Co-Signing Physician Notes I have discussed the patient's management with the advanced practitioner. Please refer to the nurse practitioner's note for the documented findings and plan of care. Place NG tube and start bowel prep now. Subjective 65 yr old female with DM2, CHF, CAD, A-fib, SACHA, CKD-3, Parkinson's who was admitted on 07/[address] with fecal impaction. Good response to enema/miralax. Overdue for surveillance colonoscopy for hx of polyps and fam hx of colon cancer (brother). Prep started yesterday but pt not drinking very much. Only took about 10oz of yesterday's gallon and hasn't started today's. When asked, mention nausea. Passing brown liquid BMs. Review of Systems Review of Systems: ROS: Gen: + chronic weakness, No fevers or weight loss Eyes: No eye redness, or pain, no recent vision changes Resp: No SOB, no cough Cardio: No palpitations/irregular beats, no chest pain GI: Denies abdominal pain today; no nausea/vomiting : Denies pain on urination Skin: No jaundice, itching or new rashes Physical Exam Constitutional: WD/WN, vitals as above + ill appearing; not edematous Eyes: PERRL, conjunctivae normal, anicteric sclerae ENMT: external ear and nose normal, oropharynx normal Neck: trachea midline, no thyromegaly Respiratory: normal respiratory effort, lungs clear to auscultation Cardiovascular: RRR, no murmur, no edema Gastrointestinal (Abdomen): normal bowel sounds, soft, nontender, no hepatosplenomegaly Musculoskeletal: no cyanosis or clubbing, extremities motor strength 5/5 Skin: no rashes, warm and dry Neurologic: PERRL, EOMI, accommodation nl, no face palsy, no dysarthria Psychiatric: A+Ox3, euthymic affect Lymphatic: no cervical or axillary lymphadenopathy Results & Data ([facility]) Vital Signs (Past 12 Hours) Vital Signs Temp Pulse Resp BP Pulse Ox 08/02/20 08:42 36.6 C 80 16 123/60 98 08/01/20 23:15 36.8 C 80 16 124/76 98 Laboratory Results WBC 9, Hb 11.8, Hct 37.1, Platelets 218, Na 141, K 3.9, BUN 16, Cr 0.9, glucose 94. Diagnostic Findings CT abd/pelvis 07/31/20: 1. There is a large rectal stool ball measuring 8 cm in diameter. There is mild rectal wall thickening for the degree of distention and mild perirectal edema. This could represent a stercoral proctitis. 2. Moderate well-formed stool seen throughout the remaining colon consistent with constipation. 3. No evidence for bowel obstruction. 4. Additional findings as described above. Abd X-ray 08/01: none obstructive gas pattern.
[2020-08-02] MEDS ORDERED: bisacodyL 5 MG TABEC PO ONE (09:39)
--- NOTE | 2020-08-02 17:03 | Hospitalist Progress Note ---
Date of Service August 02, 2020 Assessment & Plan (1) Fecal impaction: (2) Proctitis: (3) Obstipation: Fecal impaction Stercoral proctitis -CT ABD:There is a large rectal stool ball measuring 8 cm in diameter. There is mild rectal wall thickening for the degree of distention and mild perirectal edema. This could represent a stercoral proctitis. Moderate well-formed stool seen throughout the remaining colon consistent with constipation. No evidence for bowel obstruction. Additional findings as described above. -Hold iron supplements, avoid narcotics -Received enema -KUB showed Nonobstructive bowel gas pattern. -Continue bowel regimen -Appreciate GI input -Plan for colonoscopy tomorrow -NG tube placed for prep -NPO after midnight Abnormal UA Urine culture: Gram-negative bacilli Continue Rocephin Day #2 (4) Hyponatremia: Likely secondary to dehydration Creatinine levels normalized with IV fluids Monitor (5) Diabetes mellitus type 2 with complications: HbA1c: 9.2 Continue Insulin therapy Adjust meds as needed Monitor BGs (6) Parkinson disease: Possibly contributing to constipation as well. Continue home medication (7) Diastolic CHF: Monitor Volume status Continue home medications (8) DVT prophylaxis: SQ Lovenox Code Status Full Code Disposition P/OT prior to discharge Admission and Anticipated Discharge Date Admission Date: August 01, 2020 Subjective Patient is seen and examined at bedside States feeling tired secondary to colonoscopy prep Had bowel movement Denies nausea, vomiting, abdominal pain, dizziness, chest pain, dyspnea Plan for colonoscopy tomorrow Review of Systems Review of Systems: All systems reviewed & are unremarkable except as noted in HPI & below Physical Exam Physical Exam: Physical Exam: Vitals signs as noted above General Appearance:Obese, no apparent distress Head: normocephalic, Atraumatic Eyes: normal inspection, EOMI Neck: supple, Trachea midline Respiratory/Chest: Normal breath sounds, CTA, +pacemaker Cardiovascular: S1, S2, No murmur Abdomen/GI:Soft, Non tender, Bowel sounds present Extremities/Musculoskelatal:normal inspection, no edema, Right toes S/P amputation Neurologic/Psych:grossly no focal neurological deficits, Slow to respond--baseline Skin: normal color, warm Results & Data Results & Data ([facility]) Vital Signs (Past 12 Hours) Vital Signs Temp Pulse Resp BP Pulse Ox 08/02/20 15:18 37.1 C 58 L 18 131/76 99 08/02/20 08:42 36.6 C 80 16 123/60 98 Laboratory Results Short CBC 08/02/20 Range/Units 06:06 WBC 9.61 (4.8-10.8) K/uL Hgb 11.8 L (12.0-16.0) g/dL Hct 37.1 (37-47) % Plt Count 218 (130-400) K/uL BMP 08/02/20 06:06 Sodium 141 Potassium 3.9 Chloride 107 Carbon Dioxide 30 BUN 16 Creatinine 0.90 Glucose 94 Calcium 9.6
[2020-08-02] MEDS: ENOXAPARIN INJ 40 MG/0.4 ML SYR SQ SCH (22:09)
[2020-08-02] MEDS: ATORVASTATIN 40 MG TAB PO SCH (22:10)
[2020-08-02] MEDS: CLOPIDOGREL BISULFATE 75 MG TAB PO SCH (22:11)
[2020-08-03] MEDS: RESTASIS - ORDER AWAITING ACTION SCH ×3 (00:23→17:11)
[2020-08-03] MEDS ORDERED: LORazepam 0.25 MG/0.5 ML VIAL IV STA (01:22)
[2020-08-03 06:13] LABS: Hematocrit (blood only) 36.3 % (37-47); Hemoglobin 11.5 g/dL (12.0-16.0); Mean Corpuscular Hemoglobin 28.1 pg (25-34); Mean Corpuscular Hgb Conc 31.7 g/dL (32-36); Mean Corpuscular Volume 88.8 fL (80-100); Mean Platelet Volume 10.3 fL (7.4-10.4); Platelet Count 238 K/uL (130-400); RDW Standard Deviation 41.5 fL (36.4-46.3); Red Blood Count 4.09 M/uL (4.2-5.4); White Blood Count 9.46 K/uL (4.8-10.8)
[2020-08-03] MEDS: PANTOprazole 40 MG TAB PO SCH (06:13)
[2020-08-03 06:43] LABS: Calcium 9.2 mg/dl (8.5-10.1); Creatinine Clr Calc Pharmacy 66.8 ml/min; Est GFR (African American) 94.1; Est GFR (Non-African American) 81.2; Potassium 4.1 mmol/L (3.5-5.1)
--- NOTE | 2020-08-03 08:54 | History & Physical Bridge Note ---
Date of Service August 03, 2020 History & Physical Bridge Note I have examined the patient, reviewed the History & Physical and in the interval since the performance of the History & Physical I have noted the following changes of clinical significance: no changes noted Spoke to sister and obtained consent for colonoscopy today.
[2020-08-03] MEDS ORDERED: PROPOFOL IV EMULSION 10 MG/ML 20 ML VIAL IV ONE ×2 (09:05→09:54)
[2020-08-03] MEDS ORDERED: ONDANSETRON INJ 2 MG/ML 2 ML VIAL ONE (09:06)
--- NOTE | 2020-08-03 09:06 | Anesthesiology Consultation ---
Date of Service August 03, 2020 History Surgery Operation Date: 08/03/20 15:30 Proposed Procedures p Colonoscopy Dr Redmond - Bereket Redmond MD Height/Weight Height: 5 ft 2 in Weight: 72.2 kg Allergies Allergy/AdvReac Type Severity Reaction Status Date / Time bee venom protein (honey bee) Allergy Severe SWELLING Verified 07/31/20 13:13 lidocaine Allergy Severe ANAPHYLAXIS Verified 07/31/20 13:13 morphine Allergy Mild itching Verified 07/31/20 13:13 tramadol Allergy Mild ITCHING Verified 07/31/20 13:13 trazodone Allergy Mild ITCHING Verified 07/31/20 13:13 Medications Home Medications Medication Instructions Recorded Confirmed Last Taken atorvastatin 40 mg PO QPM 04/02/18 07/31/20 08/16/19 clopidogrel 75 mg PO HS 04/02/18 07/31/20 08/16/19 docusate sodium [Colace] 100 mg PO BIDM 04/02/18 07/31/20 08/16/19 18:00 nitroglycerin 0.4 mg SUBLINGUAL DIRECTED PRN 04/02/18 07/31/20 Unknown pantoprazole 40 mg PO DAILYBB 04/02/18 07/31/20 08/16/19 aspirin 81 mg PO QAM 05/02/18 07/31/20 08/16/19 metoprolol succinate [Toprol XL] 50 mg PO BID 08/21/18 07/31/20 08/16/19 21:00 multivitamin 1 tab PO QDB 02/06/19 07/31/20 08/16/19 carbidopa 25 mg-levodopa 100 mg 1 tab PO QID 30 Days #120 tab 07/31/19 07/31/20 08/16/19 21:00 tablet escitalopram oxalate 20 mg PO QAM 08/17/19 07/31/20 08/16/19 insulin glargine [Lantus U-100 21 unit SUBCUT DAILY 08/17/19 07/31/20 08/17/19 Insulin] acetaminophen 650 mg PO DAILY PRN 07/11/20 07/31/20 Unknown amlodipine 5 mg PO QAM 07/11/20 07/31/20 Unknown cyclosporine [Restasis] 1 drp OPB Q12H 07/11/20 07/31/20 Unknown ketoconazole 1 applic TOPICAL DAILY 07/11/20 07/31/20 Unknown Lactobacillus acidoph-L.bulgar 1 tab PO DAILY 07/31/20 07/31/20 Unknown [Floranex] ferrous sulfate 325 mg PO BID 07/31/20 07/31/20 Unknown Active Medications Generic Name Dose Route Start Last Admin Trade Name Freq PRN Reason Stop Dose Admin Amlodipine Besylate 5 mg 08/01/20 09:00 08/02/20 08:34 Amlodipine Besylate 5 Mg Tab PO 08/31/20 08:59 5 mg QAM YANG Administration Aspirin 81 mg 08/01/20 09:00 08/02/20 08:34 Aspirin 81 Mg Ectab PO 08/31/20 08:59 81 mg QAM YANG Administration Atorvastatin Calcium 40 mg 07/31/20 21:00 08/02/20 22:10 Atorvastatin 40 Mg Tab PO 08/30/20 20:59 40 mg QPM YANG Administration Carbidopa/Levodopa 1 tab 07/31/20 21:00 08/02/20 22:09 Carbidopa/Levodopa 25/100mg Tab PO 08/30/20 20:59 1 tab QID YANG Administration Clopidogrel Bisulfate 75 mg 07/31/20 21:00 08/02/20 22:11 Clopidogrel Bisulfate 75 Mg Tab PO 08/30/20 20:59 75 mg HS YANG Administration Enoxaparin Sodium 40 mg 07/31/20 21:00 08/02/20 22:09 Enoxaparin Inj 40 Mg/0.4 Ml Syr SQ 08/30/20 20:59 40 mg Q24H YANG Administration Escitalopram Oxalate 20 mg 08/01/20 09:00 08/02/20 08:34 Escitalopram Oxalate 20 Mg Tab PO 08/31/20 08:59 20 mg QAM YANG Administration Ceftriaxone Sodium 1,000 mg/ 50 mls @ 100 mls/hr 08/01/20 09:00 08/02/20 09:05 Dextrose IV 08/06/20 08:59 Infused Q24H YANG Infusion Protocol Insulin Aspart 0 units 08/01/20 16:30 08/02/20 21:31 Insulin Aspart 100 Units/Ml 3 Ml Pen SC 08/31/20 16:29 Not Given ACHS YANG Metoprolol Succinate 50 mg 07/31/20 21:00 08/02/20 22:09 Metoprolol Succ 50mg Ext Rel Tab PO 08/30/20 20:59 50 mg BID YANG Administration Miscellaneous 1 ea 08/01/20 00:00 08/03/20 00:23 Restasis - Order Awaiting Action N/A 08/31/20 00:00 Not Given QS YANG Multivitamins 1 tab 08/01/20 07:30 08/02/20 08:33 Multivitamin Tab PO 08/31/20 07:29 1 tab QDB YANG Administration Pantoprazole Sodium 40 mg 08/01/20 06:30 08/03/20 06:13 Pantoprazole 40 Mg Tab PO 08/31/20 06:29 Not Given DAILYBB YANG Senna/Docusate Sodium 1 tab 07/31/20 21:00 08/02/20 22:10 Docusate Sodium/Senna 50/8.6mg Tab PO 08/30/20 20:59 1 tab BID YANG Administration NPO Date Last Intake of Fluids: 08/02/20 Time Last Intake of Fluids: 23:00 Date Last Intake of Solids: 08/01/20 Past Medical History Medical History Acquired claw toe of left foot Amputated toe of right foot Asthma Callus Coronary atherosclerosis of [place] coronary vessel (08/24/11) s/p CABG (SVG to OM, SVT to OM2, MEHTA to LAD) on 04/05/1998 s/p HEIDY x2 (LM and LAD) in 06/2012" Depression 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 Past Family History Family History Mother Heart disease Hypertension Brother Asthma Brother Diabetes Father Diabetes Past Surgical History Surgical History H/O eye surgery H/O: hysterectomy SUZY History of amputation of lesser toe of right foot History of appendectomy History of cholecystectomy S/P implantation of automatic cardioverter/defibrillator (AICD) S/P triple vessel bypass 1997 Social History Smoking Status: Never smoker Hx Alcohol Use: Yes Alcohol type: hard liquor alcohol intake frequency: holidays/special occasions only Hx Substance Use: No substance use type: does not use Physical Exam Vital Signs Last Vital Signs Temp 36.3 C L 08/03/20 08:18 Pulse 61 08/03/20 08:18 Resp 18 08/03/20 08:18 BP 156/80 H 08/03/20 08:18 Pulse Ox 95 08/03/20 08:18 Testing Laboratory Results 08/03/20 05:35 08/03/20 05:35 Hemoglobin A1c 9.2 % (4.5-5.6) H 08/01/20 06:05 Urine Color Dark Yellow 08/01/20 05:45 Urine Appearance Turbid (Clear) A 08/01/20 05:45 Urine pH 5.0 (4.5-7.5) 08/01/20 05:45 Ur Specific [place] 1.028 (1.000-1.030) 08/01/20 05:45 Urine Protein 2+ (Negative) H 08/01/20 05:45 Urine Glucose (UA) Negative (Negative) 08/01/20 05:45 Urine Ketones 1+ (Negative) H 08/01/20 05:45 Urine Nitrite Positive (Negative) A 08/01/20 05:45 Ur Leukocyte Esterase 3+ (Negative) H 08/01/20 05:45 Urine WBC (Auto) >30 /hpf (0-5) H 08/01/20 05:45 Urine RBC (Auto) 0-4 /hpf (0-4) 08/01/20 05:45 U Hyaline Cast (Auto) 0 /lpf (0-5) 08/01/20 05:45 U Epithel Cells (Auto) >30 /lpf (0-5) H 08/01/20 05:45 Urine Bacteria (Auto) 3+ (Negative) H 08/01/20 05:45 08/01/20 05:45 Urine Culture - Final Urine,Clean Catch Escherichia coli Lactobacillus species 08/03/20 08/03/20 08:05 01:53 POC Glucose 81 90 Electrocardiogram Date: 08/01/20 Normal sinus rhythm Cannot rule out Inferior infarct , age undetermined Cannot rule out Anterior infarct , age undetermined Nonspecific T wave abnormality Abnormal ECG When compared with ECG of 11-JUL-2020 12:48, No significant change Confirmed by Ammon Guerrero ([id number]) on 08/01/2020 6:13:36 AM
[2020-08-03] MEDS: INSULIN ASPART 100 UNITS/ML 3 ML PEN SC SCH ×4 (09:50→21:11)
--- NOTE | 2020-08-03 09:53 | GI REPORT ---
Patient Name: Roberta Pereyra Procedure Date: 08/03/2020 8:51 AM Date of : 1955 Admit Type: Inpatient Age: 65 Gender: Female Attending MD: Bereket Redmond MD Procedure: Colonoscopy Providers: Bereket Redmond MD Referring MD: Roque Fernandez Md Indications: Abnormal CT of the GI tract Medicines: Propofol per Anesthesia Complications: No immediate complications. Estimated Blood Loss: Estimated blood loss: none. Procedure: Pre-Anesthesia Assessment: - Prior to the procedure, a History and Physical was performed, and patient medications, allergies and sensitivities were reviewed. The patient's tolerance of previous anesthesia was reviewed. - The risks and benefits of the procedure and the sedation options and risks were discussed with the patient. All questions were answered and informed consent was obtained. - Patient identification and proposed procedure were verified prior to the procedure by the physician and the nurse. The procedure was verified in the procedure room. - Pre-procedure physical examination revealed no contraindications to sedation. After I obtained informed consent, the scope was passed under direct vision. Throughout the procedure, the patient's blood pressure, pulse, and oxygen saturations were monitored continuously. The Scope was introduced through the anus and advanced to the cecum, identified by appendiceal orifice and ileocecal valve. The colonoscopy was performed without difficulty. The patient tolerated the procedure well. The quality of the bowel preparation was fair. The ileocecal valve, appendiceal orifice, and rectum were photographed. Findings: The perianal and digital rectal examinations were normal. A 6 mm polyp was found in the cecum. The polyp was sessile. The polyp was removed with a cold snare. Resection and retrieval were complete. Verification of patient identification for the specimen was done by the physician and nurse using the patient's name and date. The retroflexed view of the distal rectum and anal verge was normal and showed no anal or rectal abnormalities. Impression: - One 6 mm polyp in the cecum, removed with a cold snare. Resected and retrieved. - The distal rectum and anal verge are normal on retroflexion view. Recommendation: - [facility]. - Await pathology results. - Repeat colonoscopy in 2 years for surveillance. - Return to referring physician. Bereket Redmond MD 08/03/2020 9:53:23 AM This report has been signed electronically. Note Initiated On: 08/03/2020 8:51 AM Number of Addenda: 0 I attest to the content of the Intraoperative Record and orders documented therein, exceptions below {[id number]}
[2020-08-03] MEDS: ESCITALOPRAM OXALATE 20 MG TAB PO SCH (11:12)
[2020-08-03] MEDS: CARBIDOPA/LEVODOPA 25/100MG TAB PO SCH ×4 (11:12→20:48)
[2020-08-03] MEDS: DOCUSATE SODIUM/SENNA 50/8.6MG TAB PO SCH ×2 (11:12→20:48)
[2020-08-03] MEDS: INSULIN GLARGINE SOLOSTAR 100 UNITS/ML 3 ML PEN SC SCH ×2 (11:12→21:11)
[2020-08-03] MEDS: ASPIRIN 81 MG ECTAB PO SCH (11:12)
[2020-08-03] MEDS: cefTRIAXone SODIUM 1,000 MG in DEXTROSE 5% 50 ML IV SCH (11:13)
[2020-08-03] MEDS: MULTIVITAMIN TAB PO SCH (11:13)
[2020-08-03] MEDS: amLODIPine BESYLATE 5 MG TAB PO SCH (11:13)
[2020-08-03] MEDS: METOPROLOL SUCC 50MG EXT REL TAB PO SCH ×2 (11:13→20:48)
--- NOTE | 2020-08-03 12:18 | Anesthesiology Progress Note ---
Date of Service August 03, 2020 Anesthesia Post Procedure Vital Signs Vital Signs: Temp Pulse Resp BP BP Pulse Ox 08/03/20 12:08 64 16 141/69 H 93 08/03/20 11:33 58 L 16 111/58 L 98 08/03/20 10:58 36.7 C 60 20 167/81 H 100 08/03/20 10:30 67 16 149/82 H 98 08/03/20 10:16 59 L 16 112/78 95 08/03/20 10:01 36.3 C L 60 16 121/55 L 100 08/03/20 08:18 36.3 C L 61 18 156/80 H 95 08/03/20 08:01 36.6 C 57 L 16 140/61 96 08/02/20 23:05 36.9 C 57 L 16 133/85 96 08/02/20 15:18 37.1 C 58 L 18 131/76 99 Pain Intensity Abdomen: Pain Intensity: 0 Transfer of Care Handoff Completed per policy Notes Mental Status: alert / awake / arousable and participated in evaluation Patient Amnestic to Procedure: Yes Nausea / Vomiting: adequately controlled Pain: adequately controlled Airway Patency, RR, SpO2: stable & adequate BP & HR: stable & adequate Hydration State: stable & adequate Anesthetic Complications: no major complications apparent and Pt Satisfied with anesthetic care
--- NOTE | 2020-08-03 17:30 | Hospitalist Progress Note ---
Date of Service August 03, 2020 Assessment & Plan (1) Fecal impaction: (2) Proctitis: (3) Obstipation: Fecal impaction Stercoral proctitis -CT ABD:There is a large rectal stool ball measuring 8 cm in diameter. There is mild rectal wall thickening for the degree of distention and mild perirectal edema. This could represent a stercoral proctitis. Moderate well-formed stool seen throughout the remaining colon consistent with constipation. No evidence for bowel obstruction. Additional findings as described above. -Held iron supplements, avoid narcotics -Received enema -KUB showed Nonobstructive bowel gas pattern. -Continue bowel regimen -Appreciate GI input -s/p colonoscopy: 6 mm polyp in the cecum, resected -Diet resumed UTI-POA Urine culture: E.coli Continue Rocephin Day #3 (4) Hyponatremia: Likely secondary to dehydration Creatinine levels normalized with IV fluids Monitor (5) Diabetes mellitus type 2 with complications: HbA1c: 9.2 Continue Insulin therapy Adjust meds as needed Monitor BGs (6) Parkinson disease: Possibly contributing to constipation as well. Continue home medication (7) Diastolic CHF: Monitor Volume status Continue home medications (8) DVT prophylaxis: SQ Lovenox Code Status Full Code Disposition Home with home health as able Admission and Anticipated Discharge Date Admission Date: August 01, 2020 Subjective Patient is seen and examined at bedside More alert, awake today Had colonoscopy earlier today States having minimal abdominal discomfort Denies nausea, vomiting, chest pain, dyspnea, dizziness Review of Systems Review of Systems: All systems reviewed & are unremarkable except as noted in HPI & below Physical Exam Physical Exam: Physical Exam: Vitals signs as noted above General Appearance:Obese, no apparent distress Head: normocephalic, Atraumatic Eyes: normal inspection, EOMI Neck: supple, Trachea midline Respiratory/Chest: Normal breath sounds, CTA, +pacemaker Cardiovascular: S1, S2, No murmur Abdomen/GI:Soft, Non tender, Bowel sounds present Extremities/Musculoskelatal:normal inspection, no edema, Right toes S/P amputation Neurologic/Psych:grossly no focal neurological deficits, Slow to respond intermittently --baseline Skin: normal color, warm Results & Data Results & Data ([facility]) Vital Signs (Past 12 Hours) Vital Signs Temp Pulse Resp BP BP Pulse Ox 08/03/20 16:07 37.3 C 76 16 120/72 96 08/03/20 14:35 37 C 76 18 124/81 08/03/20 13:00 88 16 110/58 L 08/03/20 12:08 64 16 141/69 H 93 08/03/20 11:33 58 L 16 111/58 L 98 08/03/20 10:58 36.7 C 60 20 167/81 H 100 08/03/20 10:30 67 16 149/82 H 98 08/03/20 10:16 59 L 16 112/78 95 08/03/20 10:01 36.3 C L 60 16 121/55 L 100 08/03/20 08:18 36.3 C L 61 18 156/80 H 95 08/03/20 08:01 36.6 C 57 L 16 140/61 96 Laboratory Results Short CBC 08/03/20 Range/Units 05:35 WBC 9.46 (4.8-10.8) K/uL Hgb 11.5 L (12.0-16.0) g/dL Hct 36.3 L (37-47) % Plt Count 238 (130-400) K/uL BMP 08/03/20 05:35 Sodium 138 Potassium 4.1 Chloride 104 Carbon Dioxide 30 BUN 11 Creatinine 0.76 Glucose 79 Calcium 9.2
[2020-08-03] MEDS: CLOPIDOGREL BISULFATE 75 MG TAB PO SCH (20:47)
[2020-08-03] MEDS: ATORVASTATIN 40 MG TAB PO SCH (20:47)
[2020-08-03] MEDS: ENOXAPARIN INJ 40 MG/0.4 ML SYR SQ SCH (20:49)
[2020-08-04] MEDS: RESTASIS - ORDER AWAITING ACTION SCH ×3 (00:30→16:43)
[2020-08-04] MEDS: PANTOprazole 40 MG TAB PO SCH (06:05)
[2020-08-04] MEDS: MULTIVITAMIN TAB PO SCH (08:59)
[2020-08-04] MEDS: INSULIN GLARGINE SOLOSTAR 100 UNITS/ML 3 ML PEN SC SCH ×2 (09:02→22:14)
[2020-08-04] MEDS: ASPIRIN 81 MG ECTAB PO SCH (09:02)
[2020-08-04] MEDS: amLODIPine BESYLATE 5 MG TAB PO SCH (09:04)
[2020-08-04] MEDS: ESCITALOPRAM OXALATE 20 MG TAB PO SCH (09:04)
[2020-08-04] MEDS: DOCUSATE SODIUM/SENNA 50/8.6MG TAB PO SCH ×2 (09:05→22:13)
[2020-08-04] MEDS: METOPROLOL SUCC 50MG EXT REL TAB PO SCH ×2 (09:05→22:21)
[2020-08-04] MEDS: CARBIDOPA/LEVODOPA 25/100MG TAB PO SCH ×4 (09:05→22:13)
[2020-08-04] MEDS: cefTRIAXone SODIUM 1,000 MG in DEXTROSE 5% 50 ML IV SCH (09:06)
[2020-08-04] MEDS: INSULIN ASPART 100 UNITS/ML 3 ML PEN SC SCH ×4 (09:45→22:14)
--- NOTE | 2020-08-04 11:25 | Hospitalist Progress Note ---
Date of Service August 04, 2020 Assessment & Plan (1) Fecal impaction: (2) Proctitis: (3) Obstipation: Fecal impaction Stercoral proctitis -CT ABD:There is a large rectal stool ball measuring 8 cm in diameter. There is mild rectal wall thickening for the degree of distention and mild perirectal edema. This could represent a stercoral proctitis. Moderate well-formed stool seen throughout the remaining colon consistent with constipation. No evidence for bowel obstruction. Additional findings as described above. -Held iron supplements, avoid narcotics -Received enema -KUB showed Nonobstructive bowel gas pattern. -Continue bowel regimen -Appreciate GI input -s/p colonoscopy: 6 mm polyp in the cecum, resected -Tolerated regular diet -Needs repeat colonoscopy in 2 years UTI-POA Urine culture: E.coli Continue Rocephin Day #4 (4) Hyponatremia: Likely secondary to dehydration Sodium levels normalized Monitor (5) Diabetes mellitus type 2 with complications: HbA1c: 9.2 Continue Insulin therapy Adjust meds as needed Monitor BGs (6) Parkinson disease: Possibly contributed to constipation as well Continue home medication (7) Diastolic CHF: Monitor Volume status Continue home medications (8) DVT prophylaxis: SQ Lovenox Code Status Full Code Disposition Home with home health as able Admission and Anticipated Discharge Date Admission Date: August 01, 2020 Subjective Patient is seen and examined at bedside States feeling well Offers no complaints Had BM overnight Denies nausea, vomiting, chest pain, dyspnea, dizziness, abd pain, dysuria Review of Systems Review of Systems: All systems reviewed & are unremarkable except as noted in HPI & below Physical Exam Physical Exam: Physical Exam: Vitals signs as noted above General Appearance:Obese, no apparent distress Head: normocephalic, Atraumatic Eyes: normal inspection, EOMI Neck: supple, Trachea midline Respiratory/Chest: Normal breath sounds, CTA, +pacemaker Cardiovascular: S1, S2, No murmur Abdomen/GI:Soft, Non tender, Bowel sounds present Extremities/Musculoskelatal:normal inspection, no edema, Right toes S/P amputation Neurologic/Psych:grossly no focal neurological deficits, Slow to respond intermittently --baseline Skin: normal color, warm Results & Data Results & Data ([facility]) Vital Signs (Past 12 Hours) Vital Signs Temp Pulse Resp BP BP Pulse Ox 08/04/20 09:08 69 115/68 96 08/04/20 08:04 36.6 C 71 16 138/83 96 08/03/20 23:26 37.0 C 79 16 118/76 93
--- NOTE | 2020-08-04 11:39 | Discharge Summary ---
Date of Service August 04, 2020 Admission HPI Per Admitting Provider Patient is a 65 yo female with history of Type 2 DM, CKD, dyslipidemia, SACHA, hypertension, diastolic heart failure, CAD within history of stent and ICD placement, Parkinson's, and chronic constipation. She presented to the ED today with constipation, rectal and abdominal pain. She states that she hasn't moved her bowels for 2-3 days probably. She typically does use Sennakot-S and stool softener daily. These haven't worked for her the past few days. CT of the Abd/Pelvis on admission showed a large rectal stool ball measuring 8 cm and mild rectal wall thickening with mild perirectal edema, possibly stercoral proctitis. She also is noted to have moderate stool throughout the remaining colon. WBC count is very mildly elevated. Sodium is slightly low at 130. During exam, patient describes 10/10 pain in rectum. Very little abdominal pain. COVID negative. No chest pain, urinary symptoms, or edema. Patient was given a milk of molasses enema in the ED and also was attempted disimpaction multiple times with little success. Patient is very delayed to answering questions. She is difficulty to illicit a history from. Of note, her med rec shows that she was prescribed Oxycodone as an outpatient x 7 tablets on 07/23/20 but patient does not mention this medication in discussion. Admission Exam Per Admitting Provider Physical Exam Constitutional: well developed, + obese and + behavioral limitations (Slow speech, limited responses); no acute distress Eyes: PERRL, conjunctivae normal, anicteric sclerae ENMT: Ears: no hearing impairment Neck: trachea midline, no thyromegaly Respiratory: normal respiratory effort, lungs clear to auscultation Cardiovascular: RRR, no murmur, no edema Gastrointestinal (Abdomen): Inspection/Auscultation: abdomen not distended Percussion/Palpation: abdomen soft and + abdominal mass (Note abdomen feels full cora LLQ); abdomen nontender, no guarding and abdomen not rigid Musculoskeletal: Head/Neck/Chest: normocephalic and head atraumatic Extremities: + foot abnormality (History of toes amputation) Skin: no rashes, warm and dry Neurologic: CN's II-XI intact bilaterally; not confused Speech / Cognition: + abnormal speech (slow speech, slow to answer questions. Does not answer some.) Psychiatric: Orientation: alert Affect: + flat affect Principal Diagnosis Fecal impaction Urinary tract infection Hyponatremia Discharge Data Allergies Allergy/AdvReac Type Severity Reaction Status Date / Time bee venom protein (honey bee) Allergy Severe SWELLING Verified 07/31/20 13:13 lidocaine Allergy Severe ANAPHYLAXIS Verified 07/31/20 13:13 morphine Allergy Mild itching Verified 07/31/20 13:13 tramadol Allergy Mild ITCHING Verified 07/31/20 13:13 trazodone Allergy Mild ITCHING Verified 07/31/20 13:13 Consultations 07/31/20 16:12 ED Decision to Admit Stat 07/31/20 18:25 Consult Gastroenterology Routine Procedures Performed Operation Date: 08/03/20 15:30 Actual Procedures p Colonoscopy Polypectomy - Bereket Redmond MD Colonoscopy: Findings: The perianal and digital rectal examinations were normal. A 6 mm polyp was found in the cecum. The polyp was sessile. The polyp was removed with a cold snare. Resection and retrieval were complete. Verification of patient identification for the specimen was done by the physician and nurse using the patient's name and date. The retroflexed view of the distal rectum and anal verge was normal and showed no anal or rectal abnormalities. Impression: - One 6 mm polyp in the cecum, removed with a cold snare. Resected and retrieved. - The distal rectum and anal verge are normal on retroflexion view. Recommendation: - [facility]. - Await pathology results. - Repeat colonoscopy in 2 years for surveillance. - Return to referring physician. Ordered Studies 07/31/20 12:05 CT abd pelvis wo con Stat CT ABD:There is a large rectal stool ball measuring 8 cm in diameter. There is mild rectal wall thickening for the degree of distention and mild perirectal edema. This could represent a stercoral proctitis. Moderate well-formed stool seen throughout the remaining colon consistent with constipation. No evidence for bowel obstruction. Additional findings as described above. Hospital Course (1) Fecal impaction: (2) Proctitis: (3) Obstipation: Fecal impaction Stercoral proctitis -CT ABD:There is a large rectal stool ball measuring 8 cm in diameter. There is mild rectal wall thickening for the degree of distention and mild perirectal edema. This could represent a stercoral proctitis. Moderate well-formed stool seen throughout the remaining colon consistent with constipation. No evidence for bowel obstruction. Additional findings as described above. -Held iron supplements, avoid narcotics -Received enema -KUB showed Nonobstructive bowel gas pattern. -Continue bowel regimen -Appreciate GI input -s/p colonoscopy: 6 mm polyp in the cecum, resected -Tolerated regular diet -Needs repeat colonoscopy in 2 years UTI-POA Urine culture: E.coli Continue Rocephin Day #4 (4) Hyponatremia: Likely secondary to dehydration Sodium levels normalized Monitor (5) Diabetes mellitus type 2 with complications: HbA1c: 9.2 Continue Insulin therapy Adjust meds as needed Monitor BGs (6) Parkinson disease: Possibly contributed to constipation as well Continue home medication (7) Diastolic CHF: Monitor Volume status Continue home medications (8) DVT prophylaxis: SQ Lovenox Code Status Full Code Disposition Home with home health as able Total Time Total Time Spent Total Time Spent (In Minutes): 45 minutes Total Time Includes: Examination of the Patient, Discharge Planning, Medication Reconciliation, Communication With Other Providers and Other Discharge Plan Discharge Items Patient Disposition: Home - Home Health Services Reason For Visit: CONSTIPATION Discharge Diagnosis: Fecal impaction Urinary tract infection Hyponatremia Activity: Per Instructions section Exercise/Sports: Gradually increase as tolerated Non-emergency contact: Primary Care Provider Call non-emergency contact if: you have any medication questions, your symptoms worsen, your pain is concerning for you and you have a fever Follow-up/Referrals: Reginaldo Ramirez, [Primary Care Provider] - 08/09/20 3:00 pm Diet: Carb Consistent or DM2 and Heart Healthy Addtl Attending Provider Instructions: Follow-up with your primary care physician Dr. Ramirez on August 09, 2020 at 3 PM Complete antibiotic course Omnicef 300 mg twice a day for 1 more day for urinary tract infection as advised Continue using stool softeners--docusate sodium and MiraLAX as needed to help with constipation Seek immediate medical attention if your symptoms reoccur or worsen Pending Studies at Discharge: No Stand-Alone Forms: My DP7 Digital, Smoking Cessation Medications and DC Order Prescriptions: New polyethylene glycol 3350 [Miralax] 17 gram Powder In Packet 17 g PO DAILY PRN (Reason: constipation) Qty: 30 RF: 0 cefdinir 300 mg Capsule 300 mg PO BID Qty: 2 RF: 0 Continued carbidopa-levodopa 25-100 mg tablet 1 tab PO QID 30 Days Qty: 120 RF: 2 multivitamin tablet 1 tab PO QDB RF: 0 aspirin 81 mg Tablet,Delayed Release (Dr/Ec) 81 mg PO QAM RF: 0 metoprolol succinate [Toprol XL] 50 mg tablet extended release 24 hr 50 mg PO BID RF: 0 Lactobacillus acidoph-L.bulgar [Floranex] 1 million cell Tablet 1 tab PO DAILY RF: 0 docusate sodium [Colace] 100 mg Capsule 100 mg PO BIDM Qty: 60 RF: 0 atorvastatin 40 mg tablet 40 mg PO QPM RF: 0 clopidogrel 75 mg tablet 75 mg PO HS RF: 0 pantoprazole 40 mg tablet,delayed release (DR/EC) 40 mg PO DAILYBB RF: 0 nitroglycerin 0.4 mg tablet, sublingual 0.4 mg Sublingual DIRECTED PRN (Reason: Chest Pain) RF: 0 Lantus U-100 Insulin 100 unit/mL solution 21 unit SUBCUT DAILY RF: 0 escitalopram oxalate 20 mg tablet 20 mg PO QAM RF: 0 acetaminophen 325 mg Tablet 650 mg PO DAILY PRN (Reason: Fever Or Pain) RF: 0 amlodipine 5 mg tablet 5 mg PO QAM RF: 0 Restasis 0.05 % dropperette 1 drp OPB Q12H RF: 0 ketoconazole 2 % shampoo 1 applic TOPICAL DAILY RF: 0 Changed ferrous sulfate 325 mg (65 mg iron) tablet 325 mg PO DAILY Qty: 0 RF: 0 Discharge Orders: Discharge Order (Routine); Ordered 08/04/20 Ordered By: Roque Anand/Other Patient Handouts: Managing Type 2 Diabetes, Treating Constipation, How the Colon Works Admission Data Admit Date/Time: 08/01/20 08:54 Attending Provider: Roque Fernandez Admit Provider: Roque Fernandez Primary Care Provider: Reginaldo Ramirez Other Providers: Roque Fernandez ; Sravan Loomis Other Interventions: Discharge Summary Assessment (RN) Last Done: 08/04/20 13:18
--- NOTE | 2020-08-04 14:45 | Communication Note ---
Date of Service: August 04, 2020 Patient's discharge got cancelled due to lack of home health services today. Will likely discharge [facility].
[2020-08-04] MEDS: CLOPIDOGREL BISULFATE 75 MG TAB PO SCH (22:13)
[2020-08-04] MEDS: ATORVASTATIN 40 MG TAB PO SCH (22:13)
[2020-08-04] MEDS: ENOXAPARIN INJ 40 MG/0.4 ML SYR SQ SCH (22:13)
[2020-08-05] MEDS: RESTASIS - ORDER AWAITING ACTION SCH ×2 (00:07→09:07)
[2020-08-05] MEDS: PANTOprazole 40 MG TAB PO SCH (06:38)
[2020-08-05 06:54] LABS: Hematocrit (blood only) 33.1 % (37-47); Hemoglobin 10.6 g/dL (12.0-16.0); Mean Corpuscular Hemoglobin 28.6 pg (25-34); Mean Corpuscular Volume 89.2 fL (80-100); Mean Platelet Volume 10.3 fL (7.4-10.4); Platelet Count 247 K/uL (130-400); RDW Standard Deviation 42.2 fL (36.4-46.3); Red Blood Count 3.71 M/uL (4.2-5.4); White Blood Count 8.43 K/uL (4.8-10.8)
[2020-08-05 07:32] LABS: BUN Creatinine Ratio 14.5 (10-20); Calcium 9.7 mg/dl (8.5-10.1); Creatinine Clr Calc Pharmacy 57.1 ml/min; Est GFR (African American) 77.7; Est GFR (Non-African American) 67.1; Potassium 4.3 mmol/L (3.5-5.1)
--- NOTE | 2020-08-05 08:24 | Hospitalist Progress Note ---
Date of Service August 05, 2020 Assessment & Plan (1) Fecal impaction: (2) Proctitis: (3) Obstipation: Fecal impaction Stercoral proctitis -CT ABD:There is a large rectal stool ball measuring 8 cm in diameter. There is mild rectal wall thickening for the degree of distention and mild perirectal edema. This could represent a stercoral proctitis. Moderate well-formed stool seen throughout the remaining colon consistent with constipation. No evidence for bowel obstruction. Additional findings as described above. -Held iron supplements, avoid narcotics -Received enema -KUB showed Nonobstructive bowel gas pattern. -Continue bowel regimen -Appreciate GI input -s/p colonoscopy: 6 mm polyp in the cecum, resected -Tolerated regular diet -Needs repeat colonoscopy in 2 years UTI-POA Urine culture: E.coli Continue Rocephin Day #4>>Omnicef (4) Hyponatremia: Likely secondary to dehydration Sodium levels normalized with IV fluids Monitor (5) Diabetes mellitus type 2 with complications: HbA1c: 9.2 Continue Insulin therapy Adjust meds as needed Monitor BGs (6) Parkinson disease: Possibly contributed to constipation as well Continue home medication (7) Diastolic CHF: Monitor Volume status Continue home medications (8) DVT prophylaxis: SQ Lovenox Code Status Full Code Disposition Discharge to Home with home health services Admission and Anticipated Discharge Date Admission Date: August 01, 2020 Subjective Patient is seen and examined at bedside No new complaints Having breakfast during my encounter Denies nausea, vomiting, chest pain, dyspnea, dizziness, abd pain, dysuria Plan to discharge home today Review of Systems Review of Systems: All systems reviewed & are unremarkable except as noted in HPI & below Physical Exam Physical Exam: Physical Exam: Vitals signs as noted above General Appearance:Obese, no apparent distress Head: normocephalic, Atraumatic Eyes: normal inspection, EOMI Neck: supple, Trachea midline Respiratory/Chest: Normal breath sounds, CTA, +pacemaker Cardiovascular: S1, S2, No murmur Abdomen/GI:Soft, Non tender, Bowel sounds present Extremities/Musculoskelatal:normal inspection, no edema, Right toes S/P amputation Neurologic/Psych:grossly no focal neurological deficits, Slow to respond intermittently --baseline Skin: normal color, warm Results & Data Results & Data ([facility]) Vital Signs (Past 12 Hours) Vital Signs Temp Pulse Pulse Resp BP BP Pulse Ox 08/05/20 08:20 36.6 C 67 16 130/75 93 08/05/20 00:20 08/04/20 23:33 37.0 C 67 16 111/71 93 Pulse Ox 08/05/20 08:20 08/05/20 00:20 93 08/04/20 23:33 Laboratory Results Short CBC 08/05/20 Range/Units 06:00 WBC 8.43 (4.8-10.8) K/uL Hgb 10.6 L (12.0-16.0) g/dL Hct 33.1 L (37-47) % Plt Count 247 (130-400) K/uL BMP 08/05/20 06:00 Sodium 139 Potassium 4.3 Chloride 102 Carbon Dioxide 34 H BUN 13 Creatinine 0.89 Glucose 128 H Calcium 9.7
[2020-08-05] MEDS ORDERED: CEFDINIR 300 MG CAP PO SCH (09:00)
[2020-08-05] MEDS: DOCUSATE SODIUM/SENNA 50/8.6MG TAB PO SCH (09:01)
[2020-08-05] MEDS: METOPROLOL SUCC 50MG EXT REL TAB PO SCH (09:01)
[2020-08-05] MEDS: CARBIDOPA/LEVODOPA 25/100MG TAB PO SCH (09:02)
[2020-08-05] MEDS: ASPIRIN 81 MG ECTAB PO SCH (09:02)
[2020-08-05] MEDS: ESCITALOPRAM OXALATE 20 MG TAB PO SCH (09:02)
[2020-08-05] MEDS: amLODIPine BESYLATE 5 MG TAB PO SCH (09:02)
[2020-08-05] MEDS: INSULIN GLARGINE SOLOSTAR 100 UNITS/ML 3 ML PEN SC SCH (09:03)
[2020-08-05] MEDS: INSULIN ASPART 100 UNITS/ML 3 ML PEN SC SCH (09:04)
[2020-08-05] MEDS: MULTIVITAMIN TAB PO SCH (09:13)
== END 2020-08-05 10:56 | disposition home health service (06) | DRG 389 ==
LOC: ED 11:22 → 3N 11:22

== ENCOUNTER 2022-04-23 14:05 | Inpatient (IN) ==
--- NOTE | 2022-04-23 18:24 | XRay Report ---
XR chest 1V portable CLINICAL HISTORY: Atypical chest pain. COMPARISON STUDY: Chest radiograph September 09, 2020. FINDINGS: A left subclavian pacer/AICD is in place. There are median sternotomy wires. Lung volumes a re normal. Lungs are clear. There is no pneumothorax or pleural effusion. Cardiac size is normal. Med iastinal contours are normal. There is no evidence for pulmonary edema. IMPRESSION: No acute cardiopulmonary findings. No change in appearance of the chest. ACT 112: Negative or not required by law. Electronically signed by: Osvaldo Verde M.D. 04/23/2022 6:22 PM
[2022-04-23 18:41] LABS: Basophils # (auto) 0.04 K/uL (0-0.2); Basophils % (auto) 0.3 %; Hematocrit (blood only) 32.7 % (34.1-44.9); Hemoglobin 10.8 g/dl (12.0-16.0); Immature Granulocytes # (auto) 0.04 K/uL (0.00-0.02); Immature Granulocytes % (auto) 0.3 %; Lymphocytes # (auto) 1.76 K/uL (1.2-3.4); Lymphocytes % (auto) 15.1 %; Mean Corpuscular Hemoglobin 28.7 pg (25.0-34.0); Mean Platelet Volume 11.2 fL (9.4-12.3); Monocytes % (auto) 4.3 %; Neutrophils # (auto) 9.29 K/uL (1.4-6.5); Platelet Count 201 K/uL (130-400); RDW Standard Deviation 41.1 fL (36.4-46.3); Red Blood Count 3.76 M/uL (3.93-5.22); White Blood Count 11.63 K/ul (4.8-10.8)
[2022-04-23 18:48] LABS: Appearance Urine Clear (Clear); Bilirubin Urine Negative (Negative); Blood Urine Negative (Negative); Color Urine Yellow; Glucose Urine UA Negative (Negative); Ketones Urine Negative (Negative); Leukocyte Esterase Urine Negative (Negative); Nitrite Urine Negative (Negative); Protein Urine Negative (Negative); Specific Gravity Urine 1.012 (1.000-1.030); Urobilinogen Urine Negative (Negative)
[2022-04-23 19:01] LABS: Troponin I High Sensitivity 29.9 pg/ml (0-14)
[2022-04-23 19:03] LABS: Albumin Globulin Ratio 0.9 (0.9-2); Albumin Level 3.4 gm/dl (3.4-5.0); BUN Creatinine Ratio 24.8 (10-20); Bilirubin,Total 0.9 mg/dl (0.2-1.0); Calcium 9.3 mg/dl (8.5-10.1); Creatinine Clr Calc Pharmacy 22.5 ml/min; Est GFR (African American) 27.3 ml/min; Est GFR (Non-African American) 23.6 ml/min; Globulin 3.9 gm/dl (2.5-4.0); Potassium 3.4 mmol/L (3.5-5.1); Total Protein 7.3 gm/dl (6.0-8.3)
[2022-04-23] MEDS ORDERED: POTASSIUM CHLORIDE PWD 20 MEQ PACK PO STA (19:24)
--- NOTE | 2022-04-23 19:28 | History & Physical Report ---
Date of Service April 23, 2022 Assessment & Plan (1) Stercoral colitis: Plan: ARF secondary to above Of note, outpatient serum creatinine noted to be 1.3 a few days ago. Chest pain secondary to nausea/vomiting symptoms Troponin elevation in the setting of kidney dysfunction chronic diastolic heart failure, patient on the dry side hx CAD status post CABG/stent hypertension, BP slightly elevated asthma, stable history of paroxysmal V-tach/VF status post ICD, patient scheduled for outpatient ICD generator change tomorrow as per sister. DM2 insulin requiring, suboptimal control as of recent hemoglobin A1c of 8.13 September 2021 chronic anemia, hemoglobin at baseline Parkinson's disease, stable on current regimen Chronic decubiti wounds, healing well as per patient past tobacco abuse PCU given troponin elevation and cardiac history Zosyn for stercoral colitis Manual fecal disimpaction Bowel regimen Follow troponin, TTE for progression Cardiology consult Re: Chest pain; scheduled outpatient ICD generator change N.p.o. after midnight until patient seen by cardiology in anticipation of procedure Basal bolus insulin adjusted for n.p.o. status, update hemoglobin A1c, ISS BG goal 1 10-1 40, carb count coverage DVT prophylaxis. Heparin subcu Full code Patient sister requesting updates from providers. . Ms. Sarah Worley, contact #[phone] Text document was generated using [employer] voice recognition software. It may contain grammatical or spelling errors. Kindly contact undersigned for clarification of any documentation item in question. . History of Present Illness Chief Complaint: abdominal pain, chest pain Primary Care Provider: Fior Guzman MD Medical history obtained from patient, sister, and records. Medical history significant for chronic diastolic heart failure (EF 60 to 64%, TTE 2021), CAD status post CABG/stent, hypertension, sleep apnea, asthma, history of paroxysmal V-tach/VF status post ICD, DM2 insulin requiring, chronic anemia (baseline hemoglobin of 10-11), history urolithiasis, PMR, Parkinson's disease, past tobacco abuse Last confinement August 2020 for chest pain. 2 days history of achy lower abdominal pain nausea and vomiting. Bowel movement okay as per patient. Substernal chest pain related to nausea vomiting as per patient. No unusual headache symptoms. No cough symptoms. Patient brought to the ER for evaluation. Patient complained of rectal pain to RN. MEDICAL HISTORY: As above. SURGERIES: She has had ICD, CABG. hysterectomy, cholecystectomy, eye surgery, right metatarsal amputation FAMILY HISTORY: Heart disease, DM PERSONAL AND SOCIAL HISTORY: Past smoker. No chronic intake of alcoholic beverages. 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 Allergies Allergy/AdvReac Type Severity Reaction Status Date / Time bee venom protein (honey bee) Allergy Severe SWELLING Verified 04/23/22 20:45 lidocaine Allergy Severe ANAPHYLAXIS Verified 04/23/22 20:45 morphine Allergy Mild itching Verified 04/23/22 20:45 tramadol Allergy Mild ITCHING Verified 04/23/22 20:45 trazodone Allergy Mild ITCHING Verified 04/23/22 20:45 Sulfa (Sulfonamide AdvReac Intermediate itching Verified 04/23/22 20:45 Antibiotics) Home Medications Medication Instructions Recorded Confirmed Type atorvastatin 40 mg tablet 40 mg PO QDD 04/02/18 04/23/22 History clopidogrel 75 mg tablet 75 mg PO HS 04/02/18 04/23/22 History nitroglycerin 0.4 mg sublingual 0.4 mg sublingual DIRECTED PRN 04/02/18 04/23/22 History tablet Chest Pain pantoprazole 40 mg tablet,delayed 40 mg PO DAILYBB 04/02/18 04/23/22 History release aspirin 81 mg tablet,delayed 81 mg PO QAM 05/02/18 04/23/22 History release metoprolol succinate 50 mg 50 mg PO BID 08/21/18 04/23/22 History tablet,extended release 24 hr (Toprol XL) multivitamin 1 tab PO QDB 02/06/19 04/23/22 History carbidopa 25 mg-levodopa 100 mg 1 tab PO QID 30 days #120 tabs 07/31/19 04/23/22 Rx tablet escitalopram oxalate 20 mg tablet 20 mg PO QAM 08/17/19 04/23/22 History acetaminophen 325 mg tablet 650 mg PO DAILY PRN Fever Or Pain 07/11/20 04/23/22 History ketoconazole 2 % shampoo 1 applic topical .1-2XS WEEK 07/11/20 04/23/22 History polyethylene glycol 3350 17 gram 17 g PO DAILY PRN constipation #30 08/04/20 04/23/22 Rx oral powder packet (Miralax) ea amlodipine 5 mg tablet 2.5 mg PO QAM 12/18/21 04/23/22 History dulaglutide 0.75 mg/0.5 mL 0.75 mg subcut .FAMILY DIDN'T START 12/18/21 04/23/22 History subcutaneous pen injector insulin aspart U-100 100 unit/mL 4 unit subcut USEASDIRECTD 12/18/21 04/23/22 History subcutaneous cartridge insulin glargine 100 unit/mL 18 unit subcut QAM 12/18/21 04/23/22 History subcutaneous solution (Lantus U-100 Insulin) menthol 0.44 %-zinc oxide 20.6 % 1 applic topical QID PRN .flare ups 12/18/21 04/23/22 History topical ointment (Calmoseptine) sennosides 8.6 mg-docusate sodium 1 tab-cap PO DAILY 12/18/21 04/23/22 History 50 mg tablet (Senna with Docusate Sodium) ciprofloxacin HCl 500 mg tablet 500 mg PO BID 04/23/22 04/23/22 History docusate sodium 100 mg capsule 100 mg PO BIDM PRN Constipation 04/23/22 04/23/22 History (Colace) doxycycline hyclate 100 mg tablet 100 mg PO BID 04/23/22 04/23/22 History Past Med/Surg History Medical History (Updated 04/24/22 @ 02:12 by Dereje Pedraza MD) Acquired claw toe of left foot Amputated toe of right foot Asthma Callus Coronary atherosclerosis of [place] coronary vessel (08/24/11) s/p CABG (SVG to OM, SVT to OM2, MEHTA to LAD) on 04/05/1998 s/p HEIDY x2 (LM and LAD) in 06/2012" Depression 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 Surgical History H/O eye surgery H/O: hysterectomy SUZY History of amputation of lesser toe of right foot History of appendectomy History of cholecystectomy S/P implantation of automatic cardioverter/defibrillator (AICD) S/P triple vessel bypass 1997 Family History Mother Heart disease Hypertension Brother Asthma Brother Diabetes Father Diabetes Social History Smoking Status: Never smoker Tobacco Type: Cigarettes Second Hand Exposure: No; Hx Alcohol Use: No Hx Substance Use: No Preferred Language: Macedonian Communication Ability: Effective Visual Impairment: Limited Hearing Ability: Hard of Hearing Quiller Hand Required: No Beliefs That Will Affect Care: None marital status: / Current Living Situation: Family Current Living Situation Comment: Pt lives with sisterSarah. current occupational status: disabled Other Information That Helps Us Care for You: No Feels Safe at Home: Yes Safety Concerns: Feels Safe At This Time caffeine: Yes during the past year weight has: remained stable Physical Activity Frequency: Does not Exercise Gender Identity: Female Assistive Devices: Glasses and Wheelchair Review of Systems Review of Systems: As per HPI, all other systems reviewed and negative Physical Exam Physical Exam: GENERAL: Comfortable, bradykinetic, slightly hard of hearing, no respiratory distress SKIN: Pallor, warm HEENT: Pale palpebral conjunctivae, no ptosis, dry buccal mucosa NECK : Supple, no tenderness CHEST : Healed sternal scar, CTA, no tenderness HEART : RRR, no obvious murmurs ABDOMEN: Some distention, hypogastric tenderness EXTREMITIES : Minimal LE swelling, no LE tenderness, partial amputation stump right foot NEUROLOGIC : Coherent, no facial asymmetry, slightly hard of hearing, gait and stance not assessed Results & Data Results & Data ([facility]) Vital Signs (Past 12 Hours) Vital Signs Temp Pulse Pulse Resp BP BP Pulse Ox 04/23/22 18:00 65 18 129/95 100 04/23/22 16:17 04/23/22 16:00 71 16 130/74 95 04/23/22 14:00 37.1 C 77 20 133/64 98 O2 Del Method 04/23/22 18:00 Room Air 04/23/22 16:17 Room Air 04/23/22 16:00 Room Air 04/23/22 14:00 Room Air Laboratory Results Laboratory Results WBC 11.63 K/ul (4.8-10.8) H 04/23/22 14: RBC 3.76 M/uL (3.93-5.22) L 04/23/22 14:21 Hgb 10.8 g/dl (12.0-16.0) L 04/23/22 14:21 Hct 32.7 % (34.1-44.9) L 04/23/22 14: MCV 87.0 fL (80.0-100.0) 04/23/22 14:21 MCH 28.7 pg (25.0-34.0) 04/23/22 14: MCHC 33.0 g/dL (32.0-36.0) 04/23/22 14: RDW Std Deviation 41.1 fL (36.4-46.3) 04/23/22 14: RDW Coeff of [place] 13.0 % (11.5-14.5) 04/23/22 14: Plt Count 201 K/uL (130-400) 04/23/22 14:21 MPV 11.2 fL (9.4-12.3) 04/23/22 14: Immature Gran % (Auto) 0.3 % 04/23/22 14: Neut % (Auto) 80.0 % 04/23/22 14: Lymph % (Auto) 15.1 % 04/23/22 14:21 [place] % (Auto) 4.3 % 04/23/22 14: Eos % (Auto) 0.0 % 04/23/22 14: Baso % (Auto) 0.3 % 04/23/22 14: Neut # (Auto) 9.29 K/uL (1.4-6.5) H 04/23/22 14:21 Lymph # (Auto) 1.76 K/uL (1.2-3.4) 04/23/22 14: [place] # (Auto) 0.50 K/uL (0.24-0.82) 04/23/22 14:21 Eos # (Auto) 0.00 K/uL (0-0.50) 04/23/22 14: Baso # (Auto) 0.04 K/uL (0-0.2) 04/23/22 14:21 Immature Gran # (Auto) 0.04 K/uL (0.00-0.02) H 04/23/22 14:21 Sodium 138 mmol/L (136-145) 04/23/22 14:21 Potassium 3.4 mmol/L (3.5-5.1) L 04/23/22 14:21 Chloride 101 mmol/L (98-107) 04/23/22 14:21 Carbon Dioxide 24 mmol/L (21-32) 04/23/22 14:21 Anion Gap 13 (3-11) H 04/23/22 14:21 BUN 52 mg/dl (6-23) H 04/23/22 14:21 Creatinine 2.10 mg/dl (0.6-1.2) H 04/23/22 14:21 Est Cr Clr Drug Dosing 22.5 ml/min 04/23/22 14:21 Est GFR ( Amer) 27.3 ml/min 04/23/22 14:21 Est GFR (Non-Af Amer) 23.6 ml/min 04/23/22 14:21 BUN/Creatinine Ratio 24.8 (10-20) H 04/23/22 14:21 Glucose 261 mg/dl (70-99(Fasting)) H 04/23/22 14:21 Calcium 9.3 mg/dl (8.5-10.1) 04/23/22 14:21 Total Bilirubin 0.9 mg/dl (0.2-1.0) 04/23/22 14:21 AST 22 U/L (13-39) 04/23/22 14:21 ALT 8 U/L (7-52) 04/23/22 14:21 Alkaline Phosphatase 61 U/L (34-104) 04/23/22 14:21 Troponin I High Sens 29.9 pg/ml (0-14) H 04/23/22 14:21 Total Protein 7.3 gm/dl (6.0-8.3) 04/23/22 14:21 Albumin 3.4 gm/dl (3.4-5.0) 04/23/22 14:21 Globulin 3.9 gm/dl (2.5-4.0) 04/23/22 14:21 Albumin/Globulin Ratio 0.9 (0.9-2) 04/23/22 14:21 Lipase 13 U/L (11-82) 04/23/22 14:21 Urine Color Yellow 04/23/22 17:51 Urine Appearance Clear (Clear) 04/23/22 17:51 Urine pH 5.0 (4.5-7.5) 04/23/22 17:51 Ur Specific [place] 1.012 (1.000-1.030) 04/23/22 17:51 Urine Protein Negative (Negative) 04/23/22 17:51 Urine Glucose (UA) Negative (Negative) 04/23/22 17:51 Urine Ketones Negative (Negative) 04/23/22 17:51 Urine Blood Negative (Negative) 04/23/22 17:51 Urine Nitrite Negative (Negative) 04/23/22 17:51 Urine Bilirubin Negative (Negative) 04/23/22 17:51 Urine Urobilinogen Negative (Negative) 04/23/22 17:51 Ur Leukocyte Esterase Negative (Negative) 04/23/22 17:51 Impressions Chest X-Ray 04/23/22 16:17 XR chest 1V portable CLINICAL HISTORY: Atypical chest pain. COMPARISON STUDY: Chest radiograph September 09, 2020. FINDINGS: A left subclavian pacer/AICD is in place. There are median sternotomy wires. Lung volumes are normal. Lungs are clear. There is no pneumothorax or pleural effusion. Cardiac size is normal. Mediastinal contours are normal. There is no evidence for pulmonary edema. IMPRESSION: No acute cardiopulmonary findings. No change in appearance of the chest. ACT 112: Negative or not required by law. Electronically signed by: Osvaldo Verde M.D. 04/23/2022 6:[address] OF THE ABDOMEN AND PELVIS WITHOUT CONTRAST CLINICAL HISTORY: Abdominal pain. COMPARISON STUDY: KUB August 01, 2020. CT of the abdomen and pelvis July 31, 2020. TECHNIQUE: Axial images of the abdomen and pelvis were obtained without IV contrast. Images were reviewed in the axial, sagittal, and coronal planes. Automated exposure control was utilized for the study. A dose lowering technique was utilized adhering to the principles of ALARA. FINDINGS: Pacer leads are partially imaged. Lung bases are unremarkable. No pneumatosis, free air or portal venous gas is present. Evaluation of the abdomen and pelvis is suboptimal on this unenhanced exam. Anasarca is noted. This is similar to prior exam. Mild dilatation of the common bile duct is unchanged and prior CT and likely related to cholecystectomy. No renal, ureteral or bladder calculi are present. There is no hydronephrosis. 2.5 cm left adrenal nodule is unchanged from earlier exams. This is benign given stability. The spleen, right adrenal gland, kidneys and pancreas are unremarkable. Large amount of stool within the rectum is noted. Similar findings were shown on prior CT. Moderate stool within the colon is noted. There is mild presacral stranding. No extraluminal gas is present. There is no fluid collection to suggest an abscess. There is no abdominal or pelvic lymphadenopathy. Acute fracture is noted within the lumbar spine, pelvis or hips. IMPRESSION: 1. Large stool ball within the rectum. Mild adjacent stranding. Stercoral colitis cannot be excluded. Similar findings shown on prior CT. Moderate amount of stool within the colon. 2. No bowel obstruction. 3. No urinary calculi or hydronephrosis. Diagnostic Findings EKG as per my interpretation : Rate 70, NSR, normal axis, T wave flattening in inferior and septal leads
[2022-04-23] MEDS ORDERED: LACTATED RINGER'S 1,000 ML IV ONE (19:32)
--- NOTE | 2022-04-23 19:35 | Emergency Department Note ---
Impression & Plan SABRINA (acute kidney injury), Abdominal pain, lower, Substernal chest pain Admit to the [facility] ED Provider Note NAME: ELIAS MCKEON AGE: 66 SEX: F ARRIVES VIA: Ambulance INFORMANT: Patient and her sister ED PROVIDER(S): Elvira Cope DO CHIEF COMPLAINT: Chest pain and abdominal pain PLAN: Disposition: Admit to the [facility] Condition: Fair MEDICAL DECISION MAKING: This is a 66-year-old female patient with a lengthy past medical history including Parkinson's disease who presents to the emergency department complaining of substernal chest discomfort shortness of breath and lower abdominal pain. Patient's symptoms started 3 or 4 days ago with a decreased appetite and hyperglycemia. She then developed substernal chest discomfort that she describes as a pressure with some associated dyspnea and lower abdominal pain. She is also had episodes of hemorrhoids. Much of the history was obtained from the patient's sister who arrived in the emergency department. EKG was unremarkable but laboratory studies revealed an elevated troponin and evidence of acute kidney injury. The patient's evaluation here in the ER, she states that the chest discomfort and abdominal pain has subsided. She is scheduled to have her pacemaker replaced tomorrow according to the sister. Triage Nursing notes reviewed and agree with them. Additional history obtained from the sister who arrived at her bedside [Prior medical records reviewed] Vital Signs: reviewed and unremarkable Differential diagnosis: NSTEMI, dehydration, congestive heart failure, constipation, bowel obstruction, pneumonia, sepsis Diagnostics interpreted by me: ECG: Normal sinus rhythm at a rate of [address] segment elevation or signs of ischemia. There is no ectopy. Cardiac Monitoring: Normal sinus rhythm at 65 Laboratory studies: See below Imaging studies: As per radiology Portable chest x-ray: See report HPI: 66/F arrives for evaluation of chest pain and abdominal pain. Patient states that her chest discomfort, shortness of breath and lower abdominal pain started approximately 3 or 4 days ago. She has since developed some nausea and episodes of vomiting. The patient is scheduled to have her pacemaker replaced tomorrow. She became more concerned today because her blood sugars were elevated and she had such a significantly decreased appetite. ROS: See above HPI for pertinent positives & negatives. A total of 10 systems reviewed and were otherwise negative. PAST MEDICAL HISTORY:See Below PAST SURGICAL HISTORY:See Below FAMILY HISTORY:See Below SOCIAL HISTORY:See Below HOME MEDICATIONS: See list ALLERGIES: See list VITALS:See Below PHYSICAL EXAMINATION: HEENT: Head - normocephalic and atraumatic. Pupils are equal, round, and reactive to light. Extraocular eye muscles are intact, and sclera are anicteric. Nose - moist nasal mucosa without discharge. Mouth - moist buccal mucosa. Oropharynx is nonerythematous and there is no tonsillar exudate or edema noted. Neck: Supple; no JVD, nuchal rigidity, cervical lymphadenopathy, or auscultated bruits. Heart: Regular rate and rhythm. There is a normal S1 and S2 with no murmurs, clicks, or gallops appreciated. Lungs: Clear to auscultation bilaterally with no wheezes, rales, or rhonchi. Abdomen: Soft, completely nontender, nondistended, with good bowel sounds. There are no palpable pulsatile masses or hepatosplenomegaly. There is no guarding, rigidity, or rebound noted. Extremities: No evidence of cyanosis, clubbing, or edema. There are easily palpable peripheral pulses. The patient has boots on her feet to prevent sores. Skin: warm and dry with good turgor and no rashes. ED COURSE:1545: The patient was evaluated in room C3. A complete history and physical was performed. Laboratory studies were drawn as above. A twelve-lead EKG was obtained. An order was placed for continuous cardiac monitoring. The patient was in a normal sinus rhythm at a rate of 65. The patient declined wanting anything for pain. In fact she stated that her symptoms had resolved. Patient had a chest x-ray performed. I reviewed the results of the laboratory studies with the patient. The sister was no longer in the room. 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 Surgical History H/O eye surgery H/O: hysterectomy SUZY History of amputation of lesser toe of right foot History of appendectomy History of cholecystectomy S/P implantation of automatic cardioverter/defibrillator (AICD) S/P triple vessel bypass 1997 Family History Mother Heart disease Hypertension Brother Asthma Brother Diabetes Father Diabetes Social History Smoking Status: Never smoker Tobacco Type: Cigarettes Second Hand Exposure: No; Hx Alcohol Use: No Hx Substance Use: No Preferred Language: Arabic Communication Ability: Effective Visual Impairment: Limited Hearing Ability: Hard of Hearing Resin Coater Required: No Beliefs That Will Affect Care: None marital status: / Current Living Situation: Family Current Living Situation Comment: Pt lives with sisterSarah. current occupational status: disabled Other Information That Helps Us Care for You: No Feels Safe at Home: Yes Safety Concerns: Feels Safe At This Time caffeine: Yes during the past year weight has: remained stable Physical Activity Frequency: Does not Exercise Gender Identity: Female Assistive Devices: Wheelchair Allergies Allergies Allergy/AdvReac Type Severity Reaction Status Date / Time bee venom protein (honey bee) Allergy Severe SWELLING Verified 04/23/22 20:45 lidocaine Allergy Severe ANAPHYLAXIS Verified 04/23/22 20:45 morphine Allergy Mild itching Verified 04/23/22 20:45 tramadol Allergy Mild ITCHING Verified 04/23/22 20:45 trazodone Allergy Mild ITCHING Verified 04/23/22 20:45 Sulfa (Sulfonamide AdvReac Intermediate itching Verified 04/23/22 20:45 Antibiotics) Home Meds Home Medications Medication Instructions Recorded Confirmed atorvastatin 40 mg tablet 40 mg PO QDD 04/02/18 04/23/22 clopidogrel 75 mg tablet 75 mg PO HS 04/02/18 04/23/22 nitroglycerin 0.4 mg sublingual 0.4 mg sublingual DIRECTED PRN 04/02/18 04/23/22 tablet Chest Pain pantoprazole 40 mg tablet,delayed 40 mg PO DAILYBB 04/02/18 04/23/22 release aspirin 81 mg tablet,delayed 81 mg PO QAM 05/02/18 04/23/22 release metoprolol succinate 50 mg 50 mg PO BID 08/21/18 04/23/22 tablet,extended release 24 hr (Toprol XL) multivitamin 1 tab PO QDB 02/06/19 04/23/22 escitalopram oxalate 20 mg tablet 20 mg PO QAM 08/17/19 04/23/22 acetaminophen 325 mg tablet 650 mg PO DAILY PRN Fever Or Pain 07/11/20 04/23/22 ketoconazole 2 % shampoo 1 applic topical .1-2XS WEEK 07/11/20 04/23/22 amlodipine 5 mg tablet 2.5 mg PO QAM 12/18/21 04/23/22 dulaglutide 0.75 mg/0.5 mL 0.75 mg subcut .FAMILY DIDN'T START 12/18/21 04/23/22 subcutaneous pen injector insulin aspart U-100 100 unit/mL 4 unit subcut USEASDIRECTD 12/18/21 04/23/22 subcutaneous cartridge insulin glargine 100 unit/mL 18 unit subcut QAM 12/18/21 04/23/22 subcutaneous solution (Lantus U-100 Insulin) menthol 0.44 %-zinc oxide 20.6 % 1 applic topical QID PRN .flare ups 12/18/21 04/23/22 topical ointment (Calmoseptine) sennosides 8.6 mg-docusate sodium 1 tab-cap PO DAILY 12/18/21 04/23/22 50 mg tablet (Senna with Docusate Sodium) ciprofloxacin HCl 500 mg tablet 500 mg PO BID 04/23/22 04/23/22 docusate sodium 100 mg capsule 100 mg PO BIDM PRN Constipation 04/23/22 04/23/22 (Colace) doxycycline hyclate 100 mg tablet 100 mg PO BID 04/23/22 04/23/22 Previous Rx's Medication Instructions Recorded carbidopa 25 mg-levodopa 100 mg 1 tab PO QID 30 days #120 tabs 07/31/19 tablet polyethylene glycol 3350 17 gram 17 g PO DAILY PRN constipation #30 08/04/20 oral powder packet (Miralax) ea Results & Data (ED) Vital Signs Vital Signs - 24 hr 04/23/22 14:00 04/23/22 16:00 04/23/22 16:17 Temperature 37.1 C Temperature Source Oral Pulse Rate 77 Pulse Rate [Right Finger] 71 Pulse Rhythm Regular Pulse Rhythm [Right Finger] Regular Pulse Strength Normal Pulse Strength [Right Finger] Normal Respiratory Rate 20 16 Respiratory Effort / Characteristics Non-Labored Non-Labored Respiratory Depth Normal Normal Respiratory Pattern Regular Regular Blood Pressure 133/64 Blood Pressure [Right Arm] 130/74 Blood Pressure Mean 87 Blood Pressure Mean [Right Arm] 92 Blood Pressure Position Lying Blood Pressure Position [Right Arm] Lying Pulse Oximetry 98 95 Oxygen Delivery Method Room Air Room Air Room Air Sepsis Recent Fever Within 48 Hours No Sepsis New/Unexplained Change in Mental Status No Sepsis Action Taken by Nursing No Action Required 04/23/22 18:00 Temperature Temperature Source Pulse Rate Pulse Rate [Right Finger] 65 Pulse Rhythm Pulse Rhythm [Right Finger] Regular Pulse Strength Pulse Strength [Right Finger] Normal Respiratory Rate 18 Respiratory Effort / Characteristics Non-Labored Respiratory Depth Normal Respiratory Pattern Regular Blood Pressure Blood Pressure [Right Arm] 129/95 Blood Pressure Mean Blood Pressure Mean [Right Arm] 106 Blood Pressure Position Blood Pressure Position [Right Arm] Lying Pulse Oximetry 100 Oxygen Delivery Method Room Air Sepsis Recent Fever Within 48 Hours Sepsis New/Unexplained Change in Mental Status Sepsis Action Taken by Nursing Laboratory Data Result diagrams: 04/24/22 05:28 04/24/22 05:28 Lab Results 04/23/22 04/23/22 04/23/22 Range/Units 14:21 14:21 14:21 WBC 11.63 H (4.8-10.8) K/ul RBC 3.76 L (3.93-5.22) M/uL Hgb 10.8 L (12.0-16.0) g/dl Hct 32.7 L (34.1-44.9) % MCV 87.0 (80.0-100.0) fL MCH 28.7 (25.0-34.0) pg MCHC 33.0 (32.0-36.0) g/dL RDW Std Deviation 41.1 (36.4-46.3) fL RDW Coeff of [place] 13.0 (11.5-14.5) % Plt Count 201 (130-400) K/uL MPV 11.2 (9.4-12.3) fL Immature Gran % (Auto) 0.3 % Neut % (Auto) 80.0 % Lymph % (Auto) 15.1 % [place] % (Auto) 4.3 % Eos % (Auto) 0.0 % Baso % (Auto) 0.3 % Neut # (Auto) 9.29 H (1.4-6.5) K/uL Lymph # (Auto) 1.76 (1.2-3.4) K/uL [place] # (Auto) 0.50 (0.24-0.82) K/uL Eos # (Auto) 0.00 (0-0.50) K/uL Baso # (Auto) 0.04 (0-0.2) K/uL Immature Gran # (Auto) 0.04 H (0.00-0.02) K/uL APTT (21.0-31.0) Seconds PTT Ratio Sodium 138 (136-145) mmol/L Potassium 3.4 L (3.5-5.1) mmol/L Chloride 101 (98-107) mmol/L Carbon Dioxide 24 (21-32) mmol/L Anion Gap 13 H (3-11) BUN 52 H (6-23) mg/dl Creatinine 2.10 H (0.6-1.2) mg/dl Est Cr Clr Drug Dosing 22.5 ml/min Est GFR ( Amer) 27.3 ml/min Est GFR (Non-Af Amer) 23.6 ml/min BUN/Creatinine Ratio 24.8 H (10-20) Glucose 261 H (70-99(Fasting)) mg/dl Estimat Average Glucose mg/dl Hemoglobin A1c (4.5-5.6) % Calcium 9.3 (8.5-10.1) mg/dl Magnesium 1.4 L (1.7-2.4) mg/dl Total Bilirubin 0.9 (0.2-1.0) mg/dl AST 22 (13-39) U/L ALT 8 (7-52) U/L Alkaline Phosphatase 61 (34-104) U/L Troponin I High Sens 29.9 H (0-14) pg/ml Total Protein 7.3 (6.0-8.3) gm/dl Albumin 3.4 (3.4-5.0) gm/dl Globulin 3.9 (2.5-4.0) gm/dl Albumin/Globulin Ratio 0.9 (0.9-2) Lipase 13 (11-82) U/L Urine Color Urine Appearance (Clear) Urine pH (4.5-7.5) Ur Specific [place] (1.000-1.030) Urine Protein (Negative) Urine Glucose (UA) (Negative) Urine Ketones (Negative) Urine Blood (Negative) Urine Nitrite (Negative) Urine Bilirubin (Negative) Urine Urobilinogen (Negative) Ur Leukocyte Esterase (Negative) SARS-CoV-2, RNA, NAAT (NEGATIVE) 04/23/22 04/23/22 04/23/22 Range/Units 14:21 14:21 17:51 WBC (4.8-10.8) K/ul RBC (3.93-5.22) M/uL Hgb (12.0-16.0) g/dl Hct (34.1-44.9) % MCV (80.0-100.0) fL MCH (25.0-34.0) pg MCHC (32.0-36.0) g/dL RDW Std Deviation (36.4-46.3) fL RDW Coeff of [place] (11.5-14.5) % Plt Count (130-400) K/uL MPV (9.4-12.3) fL Immature Gran % (Auto) % Neut % (Auto) % Lymph % (Auto) % [place] % (Auto) % Eos % (Auto) % Baso % (Auto) % Neut # (Auto) (1.4-6.5) K/uL Lymph # (Auto) (1.2-3.4) K/uL [place] # (Auto) (0.24-0.82) K/uL Eos # (Auto) (0-0.50) K/uL Baso # (Auto) (0-0.2) K/uL Immature Gran # (Auto) (0.00-0.02) K/uL APTT 27.2 (21.0-31.0) Seconds PTT Ratio 1.0 Sodium (136-145) mmol/L Potassium (3.5-5.1) mmol/L Chloride (98-107) mmol/L Carbon Dioxide (21-32) mmol/L Anion Gap (3-11) BUN (6-23) mg/dl Creatinine (0.6-1.2) mg/dl Est Cr Clr Drug Dosing ml/min Est GFR ( Amer) ml/min Est GFR (Non-Af Amer) ml/min BUN/Creatinine Ratio (10-20) Glucose (70-99(Fasting)) mg/dl Estimat Average Glucose 174 mg/dl Hemoglobin A1c 7.7 H (4.5-5.6) % Calcium (8.5-10.1) mg/dl Magnesium (1.7-2.4) mg/dl Total Bilirubin (0.2-1.0) mg/dl AST (13-39) U/L ALT (7-52) U/L Alkaline Phosphatase (34-104) U/L Troponin I High Sens (0-14) pg/ml Total Protein (6.0-8.3) gm/dl Albumin (3.4-5.0) gm/dl Globulin (2.5-4.0) gm/dl Albumin/Globulin Ratio (0.9-2) Lipase (11-82) U/L Urine Color Yellow Urine Appearance Clear (Clear) Urine pH 5.0 (4.5-7.5) Ur Specific [place] 1.012 (1.000-1.030) Urine Protein Negative (Negative) Urine Glucose (UA) Negative (Negative) Urine Ketones Negative (Negative) Urine Blood Negative (Negative) Urine Nitrite Negative (Negative) Urine Bilirubin Negative (Negative) Urine Urobilinogen Negative (Negative) Ur Leukocyte Esterase Negative (Negative) SARS-CoV-2, RNA, NAAT (NEGATIVE) 04/23/22 Range/Units 19:35 WBC (4.8-10.8) K/ul RBC (3.93-5.22) M/uL Hgb (12.0-16.0) g/dl Hct (34.1-44.9) % MCV (80.0-100.0) fL MCH (25.0-34.0) pg MCHC (32.0-36.0) g/dL RDW Std Deviation (36.4-46.3) fL RDW Coeff of [place] (11.5-14.5) % Plt Count (130-400) K/uL MPV (9.4-12.3) fL Immature Gran % (Auto) % Neut % (Auto) % Lymph % (Auto) % [place] % (Auto) % Eos % (Auto) % Baso % (Auto) % Neut # (Auto) (1.4-6.5) K/uL Lymph # (Auto) (1.2-3.4) K/uL [place] # (Auto) (0.24-0.82) K/uL Eos # (Auto) (0-0.50) K/uL Baso # (Auto) (0-0.2) K/uL Immature Gran # (Auto) (0.00-0.02) K/uL APTT (21.0-31.0) Seconds PTT Ratio Sodium (136-145) mmol/L Potassium (3.5-5.1) mmol/L Chloride (98-107) mmol/L Carbon Dioxide (21-32) mmol/L Anion Gap (3-11) BUN (6-23) mg/dl Creatinine (0.6-1.2) mg/dl Est Cr Clr Drug Dosing ml/min Est GFR ( Amer) ml/min Est GFR (Non-Af Amer) ml/min BUN/Creatinine Ratio (10-20) Glucose (70-99(Fasting)) mg/dl Estimat Average Glucose mg/dl Hemoglobin A1c (4.5-5.6) % Calcium (8.5-10.1) mg/dl Magnesium (1.7-2.4) mg/dl Total Bilirubin (0.2-1.0) mg/dl AST (13-39) U/L ALT (7-52) U/L Alkaline Phosphatase (34-104) U/L Troponin I High Sens (0-14) pg/ml Total Protein (6.0-8.3) gm/dl Albumin (3.4-5.0) gm/dl Globulin (2.5-4.0) gm/dl Albumin/Globulin Ratio (0.9-2) Lipase (11-82) U/L Urine Color Urine Appearance (Clear) Urine pH (4.5-7.5) Ur Specific [place] (1.000-1.030) Urine Protein (Negative) Urine Glucose (UA) (Negative) Urine Ketones (Negative) Urine Blood (Negative) Urine Nitrite (Negative) Urine Bilirubin (Negative) Urine Urobilinogen (Negative) Ur Leukocyte Esterase (Negative) SARS-CoV-2, RNA, NAAT NEGATIVE (NEGATIVE) Administered Medications Amlodipine Besylate (Amlodipine Besylate 5 Mg Tab) [facility] [place] Stop: 05/24/22 08:59 Last Admin: 04/24/22 10:16 Dose: 2.5 mg Documented By: JACKY Co-signed By: SILVESTRE Aspirin (Aspirin 81 Mg Ectab) [facility] [place] Stop: 05/24/22 08:59 Last Admin: 04/24/22 10:18 Dose: 81 mg Documented By: JACKY Co-signed By: SILVESTRE Carbidopa/Levodopa (Carbidopa/Levodopa 25/100mg Tab) 1 tab PO 0900,1300,1700,2100 [facility] Stop: 05/24/22 08:59 Last Admin: 04/24/22 17:11 Dose: 1 tab Documented By: Admin: 04/24/22 12:37 Dose: 1 tab Documented By: [facility] Admin: 04/24/22 10:19 Dose: 1 tab Documented By: JACKY Co-signed By: SILVESTRE Escitalopram Oxalate (Escitalopram Oxalate 20 Mg Tab) 20 mg PO [facility] Stop: 05/24/22 08:59 Last Admin: 04/24/22 10:20 Dose: 20 mg Documented By: JACKY Co-signed By: SILVESTRE Piperacillin Sod/Tazobactam (Sod 3.375 gm/ Dextrose) 115 mls @ 28.75 mls/hr IV Q12H [facility]; Protocol Stop: 05/04/22 07:59 Last Infusion: 04/24/22 13:33 Dose: 0 mls/hr Documented By: [facility] Admin: 04/24/22 09:30 Dose: 28.8 mls/hr Documented By: ANNA Sodium Chloride (Nss) 500 mls @ 75 mls/hr IV .Q6H40M [facility] Stop: 04/25/22 06:59 Last Admin: 04/24/22 14:14 Dose: 75 mls/hr Documented By: Infusion: 04/24/22 14:11 Dose: 75 mls/hr Documented By: [facility] Admin: 04/24/22 07:30 Dose: 75 mls/hr Documented By: ANNA Insulin Aspart (Insulin Aspart Per Unit) 0 units SC ACHS YANG Stop: 05/23/22 21:51 Last Admin: 04/24/22 17:50 Dose: 3 units Documented By: ANNA Co-signed By: RADHA Admin: 04/24/22 12:06 Dose: Not Given Documented By: Admin: 04/24/22 07:50 Dose: Not Given Documented By: Admin: 04/23/22 22:39 Dose: Not Given Documented By: REBECCA Insulin Glargine (Lantus Per Unit Charge) 5 units SQ HS YANG Stop: 05/23/22 22:19 Last Admin: 04/23/22 23:20 Dose: 5 units Documented By: REBECCA Co-signed By: JACKY(2) Metoprolol Succinate (Metoprolol Succ 50mg Ext Rel Tab) 50 mg PO BID YANG Stop: 05/24/22 08:59 Last Admin: 04/24/22 10:24 Dose: 50 mg Documented By: JACKY Co-signed By: SILVESTRE Multivitamins (Multivitamin Tab) 1 tab PO QDB YANG Stop: 05/24/22 07:29 Last Admin: 04/24/22 09:48 Dose: 1 tab Documented By: ANNA Pantoprazole Sodium (Pantoprazole 40 Mg Tab) 40 mg PO DAILYBB [facility] Stop: 05/24/22 06:29 Last Admin: 04/24/22 05:08 Dose: 40 mg Documented By: REBECCA Polyethylene Glycol (Polyethylene (Miralax) 17 Gm Pack) 17 gm PO DAILY PRN PRN Reason: Constipation Stop: 05/23/22 22:15 Last Admin: 04/24/22 10:23 Dose: 17 gm Documented By: JACKY Co-signed By: SILVESTRE Senna/Docusate Sodium (Docusate Sodium/Senna 50/8.6mg Tab) 1 tab PO QAM YANG Stop: 05/23/22 22:19 Last Admin: 04/24/22 10:20 Dose: 1 tab Documented By: JACKY Co-signed By: SILVESTRE Admin: 04/23/22 23:17 Dose: 1 tab Documented By: REBECCA Discontinued Medications Acetaminophen (Acetaminophen 325 Mg Tab) 650 mg PO NOW STA Stop: 04/23/22 20:41 Last Admin: 04/23/22 21:11 Dose: 650 mg Documented By: CONG Carbidopa/Levodopa (Carbidopa/Levodopa 25/100mg Tab) 1 tab PO 2114 ONE Stop: 04/23/22 21:16 Last Admin: 04/23/22 23:18 Dose: 1 tab Documented By: REBECCA Lactated Ringer's (Lr) 1,000 mls @ 500 mls/hr IV .Q2H ONE Stop: 04/23/22 21:31 Last Infusion: 04/23/22 22:16 Dose: 0 mls/hr Documented By: Admin: 04/23/22 19:53 Dose: 500 mls/hr Documented By: CONG Magnesium Sulfate/Dextrose (Magnesium Sulfate / D5w) 1 gm in 100 mls @ 50 mls /hr IV Q2H YANG Stop: 04/24/22 00:14 Last Infusion: 04/24/22 01:17 Dose: 0 mls/hr Documented By: Admin: 04/23/22 23:16 Dose: 50 mls/hr Documented By: Infusion: 04/23/22 23:16 Dose: 50 mls/hr Documented By: Admin: 04/23/22 21:58 Dose: 50 mls/hr Documented By: REBECCA Piperacillin Sod/Tazobactam (Sod 3.375 gm/ Dextrose) 115 mls @ 230 mls/hr IV 2300 ONE; Protocol Stop: 04/23/22 23:29 Last Infusion: 04/23/22 23:46 Dose: 0 mls/hr Documented By: Admin: 04/23/22 23:17 Dose: 230 mls/hr Documented By: REBECCA Magnesium Sulfate/Dextrose (Magnesium Sulfate / D5w) 1 gm in 100 mls @ 50 mls/hr IV ONE ONE Stop: 04/24/22 10:44 Last Infusion: 04/24/22 11:37 Dose: 0 mls/hr Documented By: Admin: 04/24/22 09:30 Dose: 50 mls/hr Documented By: ANNA Metoprolol Succinate (Metoprolol Succ 50mg Ext Rel Tab) 50 mg PO 2114 ONE Stop: 04/23/22 21:16 Last Admin: 04/23/22 23:18 Dose: 50 mg Documented By: AMM Polyethylene Glycol (Polyethylene (Miralax) 17 Gm Pack) 17 gm PO NOW STA Stop: 04/23/22 22:17 Last Admin: 04/23/22 23:18 Dose: 17 gm Documented By: AMMemo Potassium Chloride (Potassium Chloride Pwd 20 Meq Pack) 40 meq PO NOW STA Stop: 04/23/22 19:25 Last Admin: 04/23/22 19:53 Dose: 40 meq Documented By: DP Imaging Data Radiologist's Impression: Chest X-Ray 04/23/22 16:17 XR chest 1V portable CLINICAL HISTORY: Atypical chest pain. COMPARISON STUDY: Chest radiograph September 09, 2020. FINDINGS: A left subclavian pacer/AICD is in place. There are median sternotomy wires. Lung volumes are normal. Lungs are clear. There is no pneumothorax or pleural effusion. Cardiac size is normal. Mediastinal contours are normal. There is no evidence for pulmonary edema. IMPRESSION: No acute cardiopulmonary findings. No change in appearance of the chest. ACT 112: Negative or not required by law. Electronically signed by: Osvaldo Verde M.D. 04/23/2022 6:22 PM Discharge Plan Visit Data Chief Complaint: Abdominal Pain Stated Complaint: AB DISCOMFORT, SOB ED Provider: Elvira Cope Discharge Problem: SABRINA (acute kidney injury), Abdominal pain, lower, Substernal chest pain Patient Disposition: Admitted As Inpatient Discharge Instructions Interventions: ED Discharge Assessment Last Done: 04/23/22 21:26
[2022-04-23 20:27] LABS: Partial Thromboplastin Time 27.2 Seconds (21.0-31.0)
[2022-04-23] MEDS ORDERED: ACETAMINOPHEN 325 MG TAB PO STA (20:40)
--- NOTE | 2022-04-23 21:02 | CT Scan Report ---
CT OF THE ABDOMEN AND PELVIS WITHOUT CONTRAST CLINICAL HISTORY: Abdominal pain. COMPARISON STUDY: KUB August 01, 2020. CT of the abdomen and pelvis July 31, 2020. TECHNIQUE: Axial images of the abdomen and pelvis were obtained without IV contrast. Images were revi ewed in the axial, sagittal, and coronal planes. Automated exposure control was utilized for the park dy. A dose lowering technique was utilized adhering to the principles of ALARA. FINDINGS: Pacer leads are partially imaged. Lung bases are unremarkable. No pneumatosis, free air or portal venous gas is present. Evaluation of the abdomen and pelvis is suboptimal on this unenhanced e xam. Anasarca is noted. This is similar to prior exam. Mild dilatation of the common bile duct is unc hanged and prior CT and likely related to cholecystectomy. No renal, ureteral or bladder calculi are present. There is no hydronephrosis. 2.5 cm left adrenal nodule is unchanged from earlier exams. This is benign given stability. The spleen, right adrenal gland, kidneys and pancreas are unremarkable. L arge amount of stool within the rectum is noted. Similar findings were shown on prior CT. Moderate st ool within the colon is noted. There is mild presacral stranding. No extraluminal gas is present. The re is no fluid collection to suggest an abscess. There is no abdominal or pelvic lymphadenopathy. Acu te fracture is noted within the lumbar spine, pelvis or hips. IMPRESSION: 1. Large stool ball within the rectum. Mild adjacent stranding. Stercoral colitis cannot be excluded. Similar findings shown on prior CT. Moderate amount of stool within the colon. 2. No bowel obstruction. 3. No urinary calculi or hydronephrosis. ACT 112: Negative or not required by law. Electronically signed by: Osvaldo Verde M.D. 04/23/2022 9:00 PM
[2022-04-23] MEDS ORDERED: METOPROLOL SUCC 50MG EXT REL TAB PO ONE (21:15)
[2022-04-23] MEDS ORDERED: CARBIDOPA/LEVODOPA 25/100MG TAB PO ONE (21:15)
[2022-04-23] MEDS ORDERED: DEXTROSE 50% 50 ML SYRINGE IV PRN (21:52)
[2022-04-23] MEDS ORDERED: CARBOHYDRATES FOR HYPOGLYCEMIA PO PRN (21:52)
[2022-04-23] MEDS ORDERED: GLUCOSE 40% GEL 15 GM TUBE PO PRN (21:52)
[2022-04-23] MEDS ORDERED: GLUCOSE 10 TAB/TUBE PO PRN (21:52)
[2022-04-23] MEDS ORDERED: GLUCAGON FOR INJ 1 MG VIAL SQ PRN (21:52)
[2022-04-23] MEDS ORDERED: NITROGLYCERIN SL 0.4 MG/TAB TAB SL PRN (21:52)
[2022-04-23] MEDS: MAGNESIUM SULFATE / D5W 1 GM/100 ML BAG IV SCH ×2 (21:58→23:16)
[2022-04-23] MEDS ORDERED: POLYETHYLENE (MIRALAX) 17 GM PACK PO PRN (22:16)
[2022-04-23] MEDS ORDERED: POLYETHYLENE (MIRALAX) 17 GM PACK PO STA (22:16)
[2022-04-23] MEDS: INSULIN ASPART PER UNIT SC SCH (22:39)
[2022-04-23] MEDS ORDERED: PIPERACILLIN/TAZOBACTAM 3.375 GM in DEXTROSE 5% 100 ML IV ONE (23:00)
[2022-04-23] MEDS: DOCUSATE SODIUM/SENNA 50/8.6MG TAB PO SCH (23:17)
[2022-04-23] MEDS: LANTUS PER UNIT CHARGE SQ SCH (23:20)
[2022-04-24] MEDS: PANTOprazole 40 MG TAB PO SCH (05:08)
[2022-04-24 05:52] LABS: Basophils # (auto) 0.06 K/uL (0-0.2); Basophils % (auto) 0.6 %; Eosinophils # (auto) 0.04 K/uL (0-0.50); Eosinophils % (auto) 0.4 %; Hematocrit (blood only) 33.1 % (34.1-44.9); Hemoglobin 11.1 g/dl (12.0-16.0); Immature Granulocytes # (auto) 0.03 K/uL (0.00-0.02); Immature Granulocytes % (auto) 0.3 %; Lymphocytes # (auto) 3.36 K/uL (1.2-3.4); Lymphocytes % (auto) 31.3 %; Mean Corpuscular Hemoglobin 28.4 pg (25.0-34.0); Mean Corpuscular Hgb Conc 33.5 g/dL (32.0-36.0); Mean Corpuscular Volume 84.7 fL (80.0-100.0); Mean Platelet Volume 10.6 fL (9.4-12.3); Monocytes # (auto) 0.81 K/uL (0.24-0.82); Monocytes % (auto) 7.5 %; Neutrophils # (auto) 6.43 K/uL (1.4-6.5); Neutrophils % (auto) 59.9 %; Platelet Count 204 K/uL (130-400); RDW Coefficient of Variation 12.8 % (11.5-14.5); RDW Standard Deviation 39.6 fL (36.4-46.3); Red Blood Count 3.91 M/uL (3.93-5.22); White Blood Count 10.73 K/ul (4.8-10.8)
[2022-04-24 06:15] LABS: BUN Creatinine Ratio 27.2 (10-20); Calcium 9.7 mg/dl (8.5-10.1); Creatinine Clr Calc Pharmacy 27.5 ml/min; Est GFR (African American) 37.4 ml/min; Est GFR (Non-African American) 32.3 ml/min; Potassium 4.3 mmol/L (3.5-5.1)
[2022-04-24 06:18] LABS: Troponin I High Sensitivity 33.3 pg/ml (0-14)
[2022-04-24 06:53] LABS: Partial Thromboplastin Time 28.3 Seconds (21.0-31.0)
[2022-04-24 06:59] LABS: Estimated Average Glucose 174 mg/dl; Hemoglobin A1C 7.7 % (4.5-5.6)
[2022-04-24] MEDS: SODIUM CHLORIDE 0.9% 500 ML IV SCH ×3 (07:30→20:50)
[2022-04-24] MEDS: INSULIN ASPART PER UNIT SC SCH ×4 (07:50→21:04)
[2022-04-24] MEDS ORDERED: MAGNESIUM SULFATE / D5W 1 GM/100 ML BAG IV ONE (08:45)
[2022-04-24] MEDS: PIPERACILLIN/TAZOBACTAM 3.375 GM in DEXTROSE 5% 100 ML IV SCH ×2 (09:30→20:49)
[2022-04-24] MEDS: MULTIVITAMIN TAB PO SCH (09:48)
[2022-04-24] MEDS: amLODIPine BESYLATE 5 MG TAB PO SCH (10:16)
[2022-04-24] MEDS: ASPIRIN 81 MG ECTAB PO SCH (10:18)
[2022-04-24] MEDS: CARBIDOPA/LEVODOPA 25/100MG TAB PO SCH ×4 (10:19→20:50)
[2022-04-24] MEDS: DOCUSATE SODIUM/SENNA 50/8.6MG TAB PO SCH (10:20)
[2022-04-24] MEDS: ESCITALOPRAM OXALATE 20 MG TAB PO SCH (10:20)
[2022-04-24] MEDS: METOPROLOL SUCC 50MG EXT REL TAB PO SCH ×2 (10:24→20:51)
--- NOTE | 2022-04-24 11:44 | Cardiology Consultation ---
Date of Consultation April 24, 2022 Assessment & Plan (1) Stercoral colitis: (2) SABRINA (acute kidney injury): (3) Hx of CABG: (4) Ischemic heart disease: (5) ICD (implantable cardioverter-defibrillator) battery depletion: (6) Elevated troponin I level: Plan Admission with nausea, vomiting, and diarrhea since Saturday, with associated chest and abdominal discomfort, possible stercoral colitis. Minimally elevated high-sensitivity troponin I, without overt angina, acute EKG changes, or new echocardiographic findings. Longstanding history of ischemic heart disease, status post remote CABG and complex PCI as detailed below. Preserved LV systolic function. Volume status: Mild hypovolemia ICD (previously placed due to VT/VF, dual chamber [place] device) at elective replacement interval, scheduled for generator change on April 24, 2022 Postpone generator exchange until over acute GI issue/illness. Continue appropriate medical management of the patient's ASCVD. Do not hold/stop beta-clyde therapy (metoprolol succinate) Further recommendations as per Dr. Schultz, patient's ongoing hospitalization. Supervising Physician Co-Signing Physician Notes The patient is interviewed and I personally performed a physical exam. Agree with the findings and plan as outlined by James VIVAR with additions as noted below. Subjective: Patient notes mild ongoing abdominal discomfort, but this has overall improved. Denies chest discomfort at the time my interview. Telemetry reveals sinus rhythm with atrial pacing in the 60s. No ventricular arrhythmias. Exam: Chest: Left infraclavicular device pocket clean dry and intact with no erythema cardiovascular: Regular rhythm no murmurs, no edema neurologic: Resting tremor consistent with patient's history of Parkinson's. Impression /Plan: As outlined above. Do not think her presentation is due to an acute coronary syndrome. Planned generator change for AICD generator at end of life was scheduled to be performed as an outpatient today. This is going to be postponed until she is feeling better overall. Case discussed with Dr Guadalupe or EP . History of Present Illness Reason for Consultation: Chest pain, ICD generator change Requesting Physician: Keila Attending Physician: Jim History of Present Illness Patient is a complex 66-year-old female who was admitted to [facility] on April 23, 2022, presenting to the ER via ambulance with chest and abdominal discomfort. The patient notes, since Thursday, April 21, 2022, patient has had diffuse abdominal pain with associated nausea, vomiting, and diarrhea. CT scan of the abdomen and pelvis revealed a large stool ball within the rectum, mild adjacent stranding, moderate stool within the colon, possible stercoral colitis. No bowel obstruction noted. No urinary calculi or hydronephrosis. Patient clinically dry, with a serum creatinine of 2.10 mg/deciliter. Chest x-ray on presentation showed no acute cardiopulmonary findings. High-sensitivity troponin I was minimally elevated at 29.9, 30.1, 33.3, 28.2 pg/mL. EKG on presentation was of limited quality, revealing sinus rhythm at 71 bpm with anterior T wave abnormality possible old inferior infarct. No overt angina. Patient scheduled for dual-chamber ICD generator exchange April 24, 2022 (today). Resting echocardiography performed on March 23, 2022, ahead of generator exchange demonstrated the following: The left ventricular cavity size is normal. The LV wall thickness is moderately increased (concentric). There is mild hypokinesis of the interventricular septum with otherwise normal contractility. The qualitative LV ejection fraction is 60-64% (normal). The left ventricular diastolic function is moderately abnormal (grade II). Moderate tricuspid regurgitation is present. The estimated pulmonary artery systolic pressure is 35-40mm Hg. Resting echocardiography performed in the morning of April 24, 2022 revealed the following: Mild concentric LVH. Subtle degree of hypokinesis of the mid and apical inferoseptum, anteroseptum. Ejection fraction 55 to 60%. Mild aortic valve sclerosis without significant stenosis. Mild tricuspid regurgitation. Doppler findings not suggestive of pulmonary hypertension. Grade 1 diastolic dysfunction. Study unchanged compared to the recent outpatient study noted above. Patient with known ASCVD, post CABG (SVG to OM, SVG to OM2, MEHTA to LAD) on 04/05/1998 at [facility] in [place], by Dr. Vu. Repeat cardiac catheterization completed in 2008 at [facility] secondary to ongoing chest pain revealed stable CAD with evidence of elevated filling pressure and pulmonary hypertension. Patient hospitalized at [facility] in June 2021 for chest pain, repeat cardiac catheterization and intervention, receiving HEIDY x2 (left main and proximal LAD). In 2012 patient experienced dizziness/syncopal episode while at home. She was admitted and found to have ventricular fibrillation and torsades on panel saw operator, controlled with lidocaine drip. She underwent repeat catheterization at that time which showed patent HEIDY of the left main and LAD with mild disease of left main, LAD, moderate disease of the left circumflex, and severe disease of RCA; severe disease of the MEHTA to LAD with both OM graphs widely patent. EF was normal at 60%. She was evaluated by EP and referred for pacer/ICD implantation. History of medication noncompliance. Additional issues include steroid dependent polymyalgia rheumatica, DM2 with retinopathy and nephropathy, dyslipidemia, Parkinson's disease, depression, GERD Allergies Allergy/AdvReac Type Severity Reaction Status Date / Time bee venom protein (honey bee) Allergy Severe SWELLING Verified 04/23/22 20:45 lidocaine Allergy Severe ANAPHYLAXIS Verified 04/23/22 20:45 morphine Allergy Mild itching Verified 04/23/22 20:45 tramadol Allergy Mild ITCHING Verified 04/23/22 20:45 trazodone Allergy Mild ITCHING Verified 04/23/22 20:45 Sulfa (Sulfonamide AdvReac Intermediate itching Verified 04/23/22 20:45 Antibiotics) Home Medications Medication Instructions Recorded Confirmed Type atorvastatin 40 mg tablet 40 mg PO QDD 04/02/18 04/23/22 History clopidogrel 75 mg tablet 75 mg PO HS 04/02/18 04/23/22 History nitroglycerin 0.4 mg sublingual 0.4 mg sublingual DIRECTED PRN 04/02/18 04/23/22 History tablet Chest Pain pantoprazole 40 mg tablet,delayed 40 mg PO DAILYBB 04/02/18 04/23/22 History release aspirin 81 mg tablet,delayed 81 mg PO QAM 05/02/18 04/23/22 History release metoprolol succinate 50 mg 50 mg PO BID 08/21/18 04/23/22 History tablet,extended release 24 hr (Toprol XL) multivitamin 1 tab PO QDB 02/06/19 04/23/22 History carbidopa 25 mg-levodopa 100 mg 1 tab PO QID 30 days #120 tabs 07/31/19 04/23/22 Rx tablet escitalopram oxalate 20 mg tablet 20 mg PO QAM 08/17/19 04/23/22 History acetaminophen 325 mg tablet 650 mg PO DAILY PRN Fever Or Pain 07/11/20 04/23/22 History ketoconazole 2 % shampoo 1 applic topical .1-2XS WEEK 07/11/20 04/23/22 History polyethylene glycol 3350 17 gram 17 g PO DAILY PRN constipation #30 08/04/20 04/23/22 Rx oral powder packet (Miralax) ea amlodipine 5 mg tablet 2.5 mg PO QAM 12/18/21 04/23/22 History dulaglutide 0.75 mg/0.5 mL 0.75 mg subcut .FAMILY DIDN'T START 12/18/21 04/23/22 History subcutaneous pen injector insulin aspart U-100 100 unit/mL 4 unit subcut USEASDIRECTD 12/18/21 04/23/22 History subcutaneous cartridge insulin glargine 100 unit/mL 18 unit subcut QAM 12/18/21 04/23/22 History subcutaneous solution (Lantus U-100 Insulin) menthol 0.44 %-zinc oxide 20.6 % 1 applic topical QID PRN .flare ups 12/18/21 04/23/22 History topical ointment (Calmoseptine) sennosides 8.6 mg-docusate sodium 1 tab-cap PO DAILY 12/18/21 04/23/22 History 50 mg tablet (Senna with Docusate Sodium) ciprofloxacin HCl 500 mg tablet 500 mg PO BID 04/23/22 04/23/22 History docusate sodium 100 mg capsule 100 mg PO BIDM PRN Constipation 04/23/22 04/23/22 History (Colace) doxycycline hyclate 100 mg tablet 100 mg PO BID 04/23/22 04/23/22 History Patient History Medical History (Updated 04/24/22 @ 11:52 by James Anderson) Acquired claw toe of left foot Amputated toe of right foot Asthma Callus Coronary atherosclerosis of [place] coronary vessel (08/24/11) s/p CABG (SVG to OM, SVT to OM2, MEHTA to LAD) on 04/05/1998 s/p HEIDY x2 (LM and LAD) in 06/2012" Depression Diabetes mellitus type 2 with complications Diabetes mellitus with diabetic polyneuropathy Diabetic nephropathy Diabetic retinopathy Diastolic CHF GERD (gastroesophageal reflux disease) History of amputation of right great toe Hypertension Neuropathic ulcer of toe of left foot Obesity, Class II, BMI 35-39.9, with comorbidity Osteoarthritis Parkinson disease Polymyalgia rheumatica Presence of combination internal cardiac defibrillator (ICD) and pacemaker Ventricular fibrillation VF arrest x2 s/p ICD placement 2013, preserved LV EF. Surgical History H/O eye surgery H/O: hysterectomy SUZY History of amputation of lesser toe of right foot History of appendectomy History of cholecystectomy S/P implantation of automatic cardioverter/defibrillator (AICD) S/P triple vessel bypass 1997 Family History Mother Heart disease Hypertension Brother Asthma Brother Diabetes Father Diabetes Social History Smoking Status: Never smoker Tobacco Type: Cigarettes Second Hand Exposure: No; Hx Alcohol Use: No Hx Substance Use: No Preferred Language: Tajik Communication Ability: Effective Visual Impairment: Limited Hearing Ability: Hard of Hearing Farm Facility 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 current occupational status: disabled Other Information That Helps Us Care for You: No Feels Safe at Home: Yes Safety Concerns: Feels Safe At This Time caffeine: Yes during the past year weight has: remained stable Physical Activity Frequency: Does not Exercise Gender Identity: Female Assistive Devices: Wheelchair Review of Systems Review of Systems: Complete Review of Systems is as stated above, negative, or noncontributory. Physical Exam Physical Exam: General: A&Ox3. NAD. HENT: Normocephalic. Atraumatic. Eyes: PER. Conjunctiva pink, sclera clear. Neck: Carotid bruits. No JVD. Heart: RRR. Soft systolic murmur at the LLSB. Lungs: Clear to auscultation. Abdomen: +BS. Soft. Right lower quadrant tenderness. No masses or organomegaly. Extremities: No clubbing, cyanosis, or edema. Limited neurological examination: + Tremor Pulses: radial=2/4, posterior tibial=0/4. Results & Data ([facility]) Vital Signs (Past 12 Hours) Vital Signs Temp Pulse Resp BP Pulse Ox O2 Del Method 04/24/22 11:00 36.7 C 62 16 165/74 H 100 Room Air 04/24/22 10:00 60 144/62 H 04/24/22 07:00 36.7 C 60 14 116/69 98 Room Air 04/24/22 03:48 36.6 C 61 16 143/58 H 100 Room Air Laboratory Results Cardiac Enzymes 04/23/22 04/23/22 04/24/22 Range/Units 14:21 21:05 05:28 AST 22 (13-39) U/L Troponin I High Sens 29.9 H 30.1 H 33.3 H (0-14) pg/ml 04/24/22 04/24/22 Range/Units 05:28 09:34 AST (13-39) U/L Troponin I High Sens Cancelled 28.2 H (0-14) pg/ml Coagulation 04/23/22 04/24/22 Range/Units 14:21 05:28 APTT 27.2 28.3 (21.0-31.0) Seconds CBC 04/23/22 04/24/22 Range/Units 14:21 05:28 WBC 11.63 H 10.73 (4.8-10.8) K/ul RBC 3.76 L 3.91 L (3.93-5.22) M/uL Hgb 10.8 L 11.1 L (12.0-16.0) g/dl Hct 32.7 L 33.1 L (34.1-44.9) % Plt Count 201 204 (130-400) K/uL Neut # (Auto) 9.29 H 6.43 (1.4-6.5) K/uL Lymph # (Auto) 1.76 3.36 (1.2-3.4) K/uL [place] # (Auto) 0.50 0.81 (0.24-0.82) K/uL Eos # (Auto) 0.00 0.04 (0-0.50) K/uL Baso # (Auto) 0.04 0.06 (0-0.2) K/uL Comprehensive Metabolic Panel 04/23/22 04/24/22 Range/Units 14:21 05:28 Sodium 138 139 (136-145) mmol/L Potassium 3.4 L 4.3 D (3.5-5.1) mmol/L Chloride 101 104 (98-107) mmol/L Carbon Dioxide 24 26 (21-32) mmol/L BUN 52 H 44 H (6-23) mg/dl Creatinine 2.10 H 1.62 H D (0.6-1.2) mg/dl Glucose 261 H 105 H (70-99(Fasting)) mg/dl Calcium 9.3 9.7 (8.5-10.1) mg/dl AST 22 (13-39) U/L ALT 8 (7-52) U/L Alkaline Phosphatase 61 (34-104) U/L Total Protein 7.3 (6.0-8.3) gm/dl Albumin 3.4 (3.4-5.0) gm/dl Intake and Output 04/23/22 04/24/22 04/24/22 22:59 06:59 14:59 Intake Total 1120 / 1400 280 / 1400 100 / 100 Balance 1120 / 1400 280 / 1400 100 / 100 Intake: IV 1000 / 1280 280 / 1280 100 / 100 Lactated Ringer's 1,000 ml @ 1000 / 1000 500 mls/hr IV .Q2H ONE Rx#: [id number] Magnesium Sulfate / D5w 1 gm In 165 / 165 100 / 100 100 ml @ 50 mls/hr IV ONE ONE Rx#:[id number] Piperacillin/Tazobactam 3.375 115 / 115 gm In Dextrose 5% 100 ml @ 230 mls/hr IV 2300 ONE Rx#:[id number] Oral 120 / 120 Other: # Unmeasured Voids 1 # Urine Diapers 1 # Bowel Movement Diapers 1 Weight 65.3 kg 62.1 kg Weight Measurement Method Built in [facility] Built in [facility]
--- NOTE | 2022-04-24 14:17 | Electrocardiogram Report ---
Test Reason : Blood Pressure : / mmHG Vent. Rate : 071 BPM Atrial Rate : 071 BPM P-R Int : 178 ms QRS Dur : 074 ms QT Int : 398 ms P-R-T Axes : 057 043 055 degrees QTc Int : 432 ms Normal sinus rhythm Cannot rule out Inferior infarct , age undetermined Abnormal ECG When compared with ECG of 10-SEP-2020 08:38, Sinus rhythm has replaced Electronic atrial pacemaker Nonspecific T wave abnormality now evident in Anterior leads Confirmed by Tiago Alva ([id number]) on 04/24/2022 2:16:57 PM Referred By: REFERRED SELF Confirmed By:Tiago Alva
--- NOTE | 2022-04-24 17:01 | Hospitalist Progress Note ---
Date of Service April 24, 2022 Assessment & Plan (1) Stercoral colitis: Plan: Acute kidney injury Likely Prerenal Baseline creatinine 1.2 Creatinine 2.1>>1.6 Continue IV fluids Avoid nephrotoxic agents as able Monitor renal function Consider renal ultrasound if no improvement Stercoral colitis Constipation --CT ABD:Large stool ball within the rectum. Mild adjacent stranding. Stercoral colitis cannot be excluded. Similar findings shown on prior CT. Moderate amount of stool within the colon. No bowel obstruction. No urinary calculi or hydronephrosis. Will obtain stool studies if develops diarrhea Continue bowel regimen Started on Zosyn empirically Check KUB in AM ICD battery depletion Plavix held for procedure Appreciate cardiology input Plan for ICD exchange as able. Chest pain Troponin elevation likely due to SABRINA -ECHO: Mild concentric LVH. Subtle degree of hypokinesis of the mid and apical inferoseptum, anteroseptum. EF 55 to 60%. Aortic valve sclerosis mild, without significant aortic stenosis. Mild tricuspid regurgitation. Grade 1 diastolic dysfunction. Unchanged echo findings from recent outpatient echo done at [facility]. H/O CAD S/P CABG, Stent Continue aspirin, metoprolol, Lipitor Appreciate cardiology input Plavix and aspirin for procedure Chronic diastolic heart failure Currently dehydrated Continue home medications Monitor volume status Hypertension BP stable Continue other medication Monitor Asthma stable No signs of exacerbation H/O Paroxysmal V-tach/VF S/P ICD Plan for ICD exchange as above DM II HbA1c 7.7 Continue Insulin Monitor BGs Hypomagnesemia Replete as needed Parkinson's disease Continue carbidopa levodopa Chronic decubitus wounds Left Ankle diabetic ulcer Continue wound care DVT Px: Heparin SQ Code Status Full code Disposition PT OT prior to discharge Admission and Anticipated Discharge Date Admission Date: April 23, 2022 Subjective Patient is seen and examined at bedside States having nausea and some abdominal discomfort Had bowel movement today Denies any chest pain, dyspnea, dizziness Offers no other complaints Review of Systems Review of Systems: All systems reviewed & are unremarkable except as noted in Subjective Physical Exam Physical Exam: Physical Exam: Vitals signs as noted above General Appearance:Moderately built and nourished, no apparent distress, Chronicill appearing Head: normocephalic, Atraumatic Eyes: normal inspection, EOMI Neck: supple, Trachea midline Respiratory/Chest: Normal breath sounds, CTA, +Pacer Cardiovascular: S1, S2, No murmur Abdomen/GI:Soft, mild tender, Bowel sounds present Extremities/Musculoskeletal:normal inspection, Trace edema, +Left Ankle Ulcer,Right toes S/P amputation Neurologic/Psych:AAO, grossly no focal neurological deficits, Slow to respond at baseline Skin: normal color, warm Results & Data Results & Data ([facility]) Vital Signs (Past 12 Hours) Vital Signs Temp Pulse Pulse Resp BP Pulse Ox O2 Del Method 04/24/22 15:35 36.5 C 60 19 126/60 100 Room Air 04/24/22 15:27 60 04/24/22 08:00 61 04/24/22 11:00 36.7 C 62 16 165/74 H 100 Room Air 04/24/22 10:00 60 144/62 H 04/24/22 07:00 36.7 C 60 14 116/69 98 Room Air Laboratory Results Short CBC 04/23/22 04/24/22 Range/Units 14:21 05:28 WBC 11.63 H 10.73 (4.8-10.8) K/ul Hgb 10.8 L 11.1 L (12.0-16.0) g/dl Hct 32.7 L 33.1 L (34.1-44.9) % Plt Count 201 204 (130-400) K/uL BMP 04/23/22 04/24/22 14:21 05:28 Sodium 138 139 Potassium 3.4 L 4.3 D Chloride 101 104 Carbon Dioxide 24 26 BUN 52 H 44 H Creatinine 2.10 H 1.62 H D Glucose 261 H 105 H Calcium 9.3 9.7 Liver Function 04/23/22 Range/Units 14:21 Total Bilirubin 0.9 (0.2-1.0) mg/dl AST 22 (13-39) U/L ALT 8 (7-52) U/L Alkaline Phosphatase 61 (34-104) U/L Albumin 3.4 (3.4-5.0) gm/dl Urine 04/23/22 Range/Units 17:51 Urine Color Yellow Urine Appearance Clear (Clear) Urine pH 5.0 (4.5-7.5) Ur Specific [place] 1.012 (1.000-1.030) Urine Protein Negative (Negative) Urine Glucose (UA) Negative (Negative)
[2022-04-24] MEDS: ACETAMINOPHEN 325 MG TAB PO PRN (21:11)
[2022-04-24] MEDS: LANTUS PER UNIT CHARGE SQ SCH (21:12)
[2022-04-24] MEDS ORDERED: ACETAMINOPHEN W/CODEINE #3 1 TAB PO ONE (22:33)
[2022-04-25] MEDS: SODIUM CHLORIDE 0.9% 500 ML IV SCH (03:48)
[2022-04-25] MEDS: PANTOprazole 40 MG TAB PO SCH (05:31)
[2022-04-25] MEDS: ACETAMINOPHEN 325 MG TAB PO PRN (05:43)
[2022-04-25 07:20] LABS: Hematocrit (blood only) 32.3 % (34.1-44.9); Hemoglobin 10.6 g/dl (12.0-16.0); Mean Corpuscular Hemoglobin 27.7 pg (25.0-34.0); Mean Corpuscular Hgb Conc 32.8 g/dL (32.0-36.0); Mean Corpuscular Volume 84.3 fL (80.0-100.0); Mean Platelet Volume 10.3 fL (9.4-12.3); Platelet Count 185 K/uL (130-400); RDW Coefficient of Variation 12.4 % (11.5-14.5); RDW Standard Deviation 37.4 fL (36.4-46.3); Red Blood Count 3.83 M/uL (3.93-5.22)
[2022-04-25 07:41] LABS: BUN Creatinine Ratio 24.8 (10-20); Calcium 9.2 mg/dl (8.5-10.1); Creatinine Clr Calc Pharmacy 30.7 ml/min; Est GFR (African American) 42.8 ml/min; Est GFR (Non-African American) 36.9 ml/min; Magnesium 1.9 mg/dl (1.7-2.4)
[2022-04-25] MEDS ORDERED: SODIUM CHLORIDE 0.9% 1000ML 1,000 ML IV ONE (08:39)
[2022-04-25] MEDS: METOPROLOL SUCC 50MG EXT REL TAB PO SCH ×2 (09:03→21:00)
[2022-04-25] MEDS: CARBIDOPA/LEVODOPA 25/100MG TAB PO SCH ×4 (09:03→21:00)
[2022-04-25] MEDS: MULTIVITAMIN TAB PO SCH (09:04)
[2022-04-25] MEDS: DOCUSATE SODIUM/SENNA 50/8.6MG TAB PO SCH (09:04)
[2022-04-25] MEDS: amLODIPine BESYLATE 5 MG TAB PO SCH (09:04)
[2022-04-25] MEDS: ASPIRIN 81 MG ECTAB PO SCH (09:04)
[2022-04-25] MEDS: ESCITALOPRAM OXALATE 20 MG TAB PO SCH (09:04)
[2022-04-25] MEDS: INSULIN ASPART PER UNIT SC SCH ×4 (09:08→21:46)
[2022-04-25] MEDS: PIPERACILLIN/TAZOBACTAM 3.375 GM in DEXTROSE 5% 100 ML IV SCH (09:09)
--- NOTE | 2022-04-25 10:07 | Cardiology Progress Note ---
Date of Service April 25, 2022 Assessment & Plan (1) Stercoral colitis: (2) SABRINA (acute kidney injury): (3) Hx of CABG: (4) Ischemic heart disease: (5) ICD (implantable cardioverter-defibrillator) battery depletion: (6) Elevated troponin I level: Plan Admission with nausea, vomiting, and diarrhea since Saturday, with associated chest and abdominal discomfort, stercoral colitis. Minimally elevated high-sensitivity troponin I, without overt angina, acute EKG changes, or new echocardiographic findings. Longstanding history of ischemic heart disease, status post remote CABG and complex PCI as detailed below. Preserved LV systolic function. Volume status: Mild hypovolemia ICD (previously placed due to VT/VF, dual chamber [employer] device) - elective replacement interval reached in January. Continue appropriate medical management of the patient's ASCVD. Do not hold/stop beta-clyde therapy (metoprolol succinate) Postpone generator exchange. ? need for a wearable defibrillator Further recommendations as per Dr. Schultz, patient's ongoing hospitalization. Admission and Anticipated Discharge Date Admission Date: April 23, 2022 Supervising Physician Co-Signing Physician Notes Refer to separate entry with regards to cosigning note. Subjective Patient seen and examined. Chart, medications, and telemetry reviewed. Complaints: Abdominal discomfort. Anal leakage. No chest pain. No palpitations. Stable shortness of breath. No PND. No edema. No dizziness or near syncope. No subjective fevers or chills. Telemetry: Sinus, paced in the 60's Review of Systems Review of Systems: Complete Review of Systems is as stated above, negative, or noncontributory. Physical Exam Physical Exam: General: A&Ox3. NAD. HENT: Normocephalic. Atraumatic. Eyes: PER. Conjunctiva pink, sclera clear. Neck: Carotid bruits. No JVD. Heart: RRR. Soft systolic murmur at the LLSB. Lungs: Clear to auscultation. Abdomen: +BS. Soft. Right lower quadrant tenderness. No masses or organomegaly. Extremities: + Wounds. No clubbing. No cyanosis. No edema. Limited neurological examination: + Tremor Pulses: radial=2/4, posterior tibial=0/4. Results & Data ([facility]) Vital Signs (Past 12 Hours) Vital Signs Temp Pulse Pulse Resp BP Pulse Ox O2 Del Method 04/25/22 07:55 36.7 C 60 18 112/68 100 Room Air 04/25/22 02:56 36.5 C 60 18 119/72 99 Room Air 04/24/22 22:19 36.8 C 59 L 16 128/68 99 Room Air Laboratory Results Cardiac Enzymes 04/24/22 Range/Units 09:34 Troponin I High Sens 28.2 H (0-14) pg/ml CBC 04/25/22 Range/Units 06:45 WBC 8.90 (4.8-10.8) K/ul RBC 3.83 L (3.93-5.22) M/uL Hgb 10.6 L (12.0-16.0) g/dl Hct 32.3 L (34.1-44.9) % Plt Count 185 (130-400) K/uL Comprehensive Metabolic Panel 04/25/22 Range/Units 06:45 Sodium 140 (136-145) mmol/L Potassium 4.0 (3.5-5.1) mmol/L Chloride 107 (98-107) mmol/L Carbon Dioxide 28 (21-32) mmol/L BUN 36 H (6-23) mg/dl Creatinine 1.45 H (0.6-1.2) mg/dl Glucose 94 (70-99(Fasting)) mg/dl Calcium 9.2 (8.5-10.1) mg/dl Intake and Output 04/24/22 04/25/22 04/25/22 22:59 06:59 14:59 Intake Total 495 / 1825 615 / 1825 Balance 495 / 1825 615 / 1825 Intake: IV 495 / 1825 615 / 1825 Piperacillin/Tazobactam 3.375 115 / 230 gm In Dextrose 5% 100 ml @ 28. 75 mls/hr IV Q12H YANG Rx#: [id number] Sodium Chloride 0.9% 500 ml @ 495 / 1495 500 / 1495 75 mls/hr IV .Q6H40M YANG Rx#: [id number] Other: # Urine Diapers 1 # Bowel Movement Diapers 1 1 Weight 62.1 kg 62.2 kg Weight Measurement Method Built in [facility]
--- NOTE | 2022-04-25 10:27 | Communication Note ---
Date of Service: April 25, 2022 Supervising Physician Attestation: I have personally performed a history and physical examination on the patient. I agree with the James Anderson PA-C's findings and plan as documented with the following additions. Subjective: Patient without subjective cardiac complaint at present. Denies chest discomfort or worsening shortness of breath. Telemetry reveals sinus rhythm with atrial pacing in the 60s. Exam: Chest: Left infraclavicular device pocket clean dry and intact Cardiovascular: Regular rhythm no murmurs Extremities: Muscular atrophy noted, no edema Neurologic: Mild resting tremor Skin: As per review of image wounds, patient with skin wounds of the left ankle, right foot, sacrum Data: Creatinine improved to 1.45 today from 1.62 yesterday Assessment and Plan: Stable coronary heart disease History of ventricular arrhythmias Dual-chamber AICD, generator end-of-life January, Skin wounds as noted above Parkinson's with recent progressive decline. With the patient's permission, I had a discussion with her sister, Sarah Worley. I discussed my concerns with regards to the patient's progressive decline. She states that the goal of the patient and her family is for the patient to not have any more pain, and she would like to discuss transitioning to a palliative care approach. She also noted her sister's wishes to be DNR status. At this point, I think it might be most reasonable to hold off on consideration of generator change, and in keeping with the patient's wishes instead consider transitioning to a palliative care approach, perhaps even with the plan of discontinuing her medications with the exception of pain medication to keep her comfortable. Sarah expressed the family's wish to take him home. I called and discussed the case with Dr. Fernandez of the hospitalist service with regards the updates. We will plan for referral to palliative care team, and changing patient's CODE STATUS to DNR/DNI as per patient/family wishes. Go Schultz,
--- NOTE | 2022-04-25 11:49 | XRay Report ---
[facility] CLINICAL HISTORY: Constipation. COMPARISON STUDY: CT of the abdomen and pelvis April 23, 2022. FINDINGS: Cholecystectomy clips are noted. There is no evidence for a bowel obstruction. Pacer leads and median sternotomy wires are partially imaged. Large amount stool within the rectum is similar to prior CT. Mild amount of stool within the colon. IMPRESSION: 1. Large amount of stool within the rectum. 2. No evidence for a bowel obstruction. ACT 112: Negative or not required by law. Electronically signed by: Osvaldo Verde M.D. 04/25/2022 11:48 AM
--- NOTE | 2022-04-25 13:44 | Palliative Care Consultation ---
Date of Consultation April 25, 2022 Assessment & Plan (1) Palliative care encounter: (2) Abdominal pain, lower: d/t colitis, stool retention, ?dysmotility Present on Admission?: Yes (3) Dyspnea: secondary to advancing HF Dyspnea type: orthopnea Qualified Code(s): R06.01 - Orthopnea Present on Admission?: Yes (4) Advanced care planning/counseling discussion: Plan * ACP discussion for 32min: Patient/family advised that Palliative Medicine is specialized medical care for people living with a serious illness. This type of care is focused on providing relief from the symptoms and stress of the illness, with goals to improve quality of life for both the patient and the family. Further, we clarified that Palliative Care is a medicine subspecialty and specifically, it is not hospice (which is a visiting nurse service.) We also reviewed that all chronic disease has a declining trajectory over time where facets of patient self identity and independence are lost. We discussed marisol changes they have noticed or what pt is feeling as her HF, PD and DM + CKD worsens. we touched upon how every acute event leads to a further decline, resulting- many times, in a new baseline. Advised that the greatest priority is to determine what matters most to pt, then family and to develop a plan of care that is in alignment with those priorities. * Pt reiterates she wants to be home with family. * Niece called pt sister/HCP Sarah on speakerphone from her [employer] during my visit. Sarah states they as a family want to keep pt comfortable and bring her home. They do not want anything invasive or aggressive done at this time. They would like a family meeting with the entire family, and so I offered times for tomorrow morning through 3pm, Sarah needs to speak with family to determine best time and will let RN know/she will inform me. Faith Leigh DNP Clinical Director, Palliative Medicine History of Present Illness Reason for Consultation: [facility] Attending Physician: Roque Fernandez MD History of Present Illness Roberta was admitted 04/23/22 from home with n/v/d x 2 days. Worsening weakness, declining oral intake but feeling thirsty. Found to have colitis with retained stool (has in past required manual disimpaction). Labs indicate ARF and troponin elevation. Pt says she cannot recall much else about what brught her to hospital but notes she is also feeling chronically SOB and tired all the time. She states she would rather be home, does not like being away from family. She has a hx signif for Parkinson' disease, chronic decubitus, chronic diastolic HFpEF (LVEF 60- 64% on TTE 2021), CAD s/p CABG/stent, HTN, SACHA, former smoker, +asthma/?COPD, paroxysmal V-tach/VF for which she has a Dual-chamber AICD, generator end-of-life January,; DM2 insulin requiring,chronic anemia (baseline hemoglobin of 10-11), history urolithiasis. Pt lives in a private home, with her sister Sarah who is also her POA. She tells me she is blessed to have a large extended family, all of whom help care for and look after her, she notes she will never have to go to a fdc. At bedside with pt today are a niece and nephew. They confirm pt sister Sarah is primary decision maker. Allergies Allergy/AdvReac Type Severity Reaction Status Date / Time bee venom protein (honey bee) Allergy Severe SWELLING Verified 04/23/22 20:45 lidocaine Allergy Severe ANAPHYLAXIS Verified 04/23/22 20:45 morphine Allergy Mild itching Verified 04/23/22 20:45 tramadol Allergy Mild ITCHING Verified 04/23/22 20:45 trazodone Allergy Mild ITCHING Verified 04/23/22 20:45 Sulfa (Sulfonamide AdvReac Intermediate itching Verified 04/23/22 20:45 Antibiotics) Home Medications Medication Instructions Recorded Confirmed Type atorvastatin 40 mg tablet 40 mg PO QDD 04/02/18 04/23/22 History clopidogrel 75 mg tablet 75 mg PO HS 04/02/18 04/23/22 History nitroglycerin 0.4 mg sublingual 0.4 mg sublingual DIRECTED PRN 04/02/18 04/23/22 History tablet Chest Pain pantoprazole 40 mg tablet,delayed 40 mg PO DAILYBB 04/02/18 04/23/22 History release aspirin 81 mg tablet,delayed 81 mg PO QAM 05/02/18 04/23/22 History release metoprolol succinate 50 mg 50 mg PO BID 08/21/18 04/23/22 History tablet,extended release 24 hr (Toprol XL) multivitamin 1 tab PO QDB 02/06/19 04/23/22 History carbidopa 25 mg-levodopa 100 mg 1 tab PO QID 30 days #120 tabs 07/31/19 04/23/22 Rx tablet escitalopram oxalate 20 mg tablet 20 mg PO QAM 08/17/19 04/23/22 History acetaminophen 325 mg tablet 650 mg PO DAILY PRN Fever Or Pain 07/11/20 04/23/22 History ketoconazole 2 % shampoo 1 applic topical .1-2XS WEEK 07/11/20 04/23/22 History polyethylene glycol 3350 17 gram 17 g PO DAILY PRN constipation #30 08/04/20 04/23/22 Rx oral powder packet (Miralax) ea amlodipine 5 mg tablet 2.5 mg PO QAM 12/18/21 04/23/22 History dulaglutide 0.75 mg/0.5 mL 0.75 mg subcut .FAMILY DIDN'T START 12/18/21 04/23/22 History subcutaneous pen injector insulin aspart U-100 100 unit/mL 4 unit subcut USEASDIRECTD 12/18/21 04/23/22 History subcutaneous cartridge insulin glargine 100 unit/mL 18 unit subcut QAM 12/18/21 04/23/22 History subcutaneous solution (Lantus U-100 Insulin) menthol 0.44 %-zinc oxide 20.6 % 1 applic topical QID PRN .flare ups 12/18/21 04/23/22 History topical ointment (Calmoseptine) sennosides 8.6 mg-docusate sodium 1 tab-cap PO DAILY 12/18/21 04/23/22 History 50 mg tablet (Senna with Docusate Sodium) ciprofloxacin HCl 500 mg tablet 500 mg PO BID 04/23/22 04/23/22 History docusate sodium 100 mg capsule 100 mg PO BIDM PRN Constipation 04/23/22 04/23/22 History (Colace) doxycycline hyclate 100 mg tablet 100 mg PO BID 04/23/22 04/23/22 History Patient History Medical History (Updated 04/25/22 @ 14:10 by Faith Leigh DNP) Acquired claw toe of left foot Amputated toe of right foot Asthma Callus Coronary atherosclerosis of morongo coronary vessel (08/24/11) s/p CABG (SVG to OM, SVT to OM2, MEHTA to LAD) on 04/05/1998 s/p HEIDY x2 (LM and LAD) in 06/2012" Depression 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 Surgical History H/O eye surgery H/O: hysterectomy SUZY History of amputation of lesser toe of right foot History of appendectomy History of cholecystectomy S/P implantation of automatic cardioverter/defibrillator (AICD) S/P triple vessel bypass 1997 Family History Mother Heart disease Hypertension Brother Asthma Brother Diabetes Father Diabetes Social History Smoking Status: Never smoker Tobacco Type: Cigarettes Second Hand Exposure: No; Hx Alcohol Use: No Hx Substance Use: No Preferred Language: Sinhala Communication Ability: Effective Visual Impairment: Limited Hearing Ability: Hard of Hearing It Sales Executive Required: No Beliefs That Will Affect Care: None marital status: / Current Living Situation: Family Current Living Situation Comment: Pt lives with sisterSarah. current occupational status: disabled Other Information That Helps Us Care for You: No Feels Safe at Home: Yes Safety Concerns: Feels Safe At This Time caffeine: Yes during the past year weight has: remained stable Physical Activity Frequency: Does not Exercise Gender Identity: Female Assistive Devices: Wheelchair Review of Systems Review of Systems: All systems reviewed & are unremarkable except as noted in HPI & below and All systems reviewed & are unremarkable except as noted in Subjective Constitutional: + fatigue, + malaise, + weakness and + anorexia Eyes: + corrective lenses and + loss of peripheral vision Ear, Nose, Mouth, Throat: + dry mouth Respiratory: + dyspnea Cardiovascular: + dyspnea, + dyspnea at rest and + orthopnea Gastrointestinal: + abdominal pain, + nausea, + vomiting and + diarrhea/loose stools Integumentary: + non-healing lesions and + skin ulcer Physical Exam Constitutional: Chronically ill appearing, +bitemp wasting Eyes: PERRL ENMT: Ears: + hearing impairment Neck: trachea midline, no thyromegaly Respiratory: normal respiratory effort and + labored breathing (mildly) Auscultation: + diminished lung sounds and + crackles Cardiovascular: Rate/Rhythm: + irregularly irregular Heart Sounds: + murmur (LLSB/systolic) no BLE edema, no tenderness to palpation Gastrointestinal (Abdomen): Inspection/Auscultation: normal bowel sounds Percussion/Palpation: + abdomen tender (RLQ) Musculoskeletal: Spine: + limited cervical ROM Extremities: + abnormal strength (generalized weakness, +contractures BUE hands) Skin: + turgor decreased, + skin tightening, + brittle hair, + hair thinning and + patchy alopecia Neurologic: awake Speech / Cognition: + abnormal speech (speech is delayed but on the whole she is replying appropriately) Cranial Nerves: PERRL Psychiatric: Orientation: alert, oriented to person, oriented to place and cooperative Apperance: appropriately groomed Eye Contact: good eye contact Affect: + blunted affect Results & Data ([facility]) Vital Signs (Past 12 Hours) Vital Signs Temp Pulse Pulse Pulse Resp BP Pulse Ox 04/25/22 11:33 04/25/22 11:28 36.5 C 62 18 130/73 99 04/25/22 10:29 60 04/25/22 07:55 36.7 C 60 18 112/68 100 04/25/22 02:56 36.5 C 60 18 119/72 99 O2 Del Method 04/25/22 11:33 Room Air 04/25/22 11:28 Room Air 04/25/22 10:29 04/25/22 07:55 Room Air 04/25/22 02:56 Room Air Laboratory Results Labs and Imaging reviewed PG Care Time/CCT Total # of Minutes Spent Total Time Spent with Patient: Total time spent is greater than 50% in coordination of care (as documented) at patient's floor/unit and/or counseling patient: Coding Level of Care Code New Pt ADVNCD CARE PLAN 30 MIN Patient Type New History Comprehensive Medical Decision Making High Complexity Diagnoses Palliative care encounter Z51.5 Abdominal pain, lower R10.30 Dyspnea R06.01 Dyspnea type: orthopnea Advanced care planning/counseling discussion Z71.89
--- NOTE | 2022-04-25 13:56 | Hospitalist Progress Note ---
Date of Service April 25, 2022 Assessment & Plan (1) Stercoral colitis: Plan: Acute kidney injury Likely Prerenal Baseline creatinine 1.2 Creatinine 2.1>>1.6>1.45 Continue gentle IV fluids Avoid nephrotoxic agents as able Monitor renal function Improving Stercoral colitis Constipation --CT ABD:Large stool ball within the rectum. Mild adjacent stranding. Stercoral colitis cannot be excluded. Similar findings shown on prior CT. Moderate amount of stool within the colon. No bowel obstruction. No urinary calculi or hydronephrosis. Will obtain stool studies if develops diarrhea Discontinue Zosyn Continue bowel regimen ICD battery depletion H/O VT/VF Appreciate cardiology input Given progressive decline secondary to comorbidities, patient was thought to be a poor candidate for ICD exchange Goal is comfort as per Patient/family Palliative care consulted to address goals of care Chest pain Troponin elevation likely due to SABRINA -ECHO: Mild concentric LVH. Subtle degree of hypokinesis of the mid and apical inferoseptum, anteroseptum. EF 55 to 60%. Aortic valve sclerosis mild, without significant aortic stenosis. Mild tricuspid regurgitation. Grade 1 diastolic dysfunction. Unchanged echo findings from recent outpatient echo done at [facility]. H/O CAD S/P CABG, Stent Continue aspirin, Plavix, metoprolol, Lipitor Appreciate cardiology input Chronic diastolic heart failure Currently dehydrated Continue home medications Monitor volume status Hypertension BP stable Continue other medication Monitor Asthma stable No signs of exacerbation H/O Paroxysmal V-tach/VF S/P ICD Plan for ICD exchange as above DM II HbA1c 7.7 Continue Insulin Monitor BGs Hypomagnesemia Replete as needed Parkinson's disease Continue carbidopa levodopa Chronic decubitus wounds Left Ankle diabetic ulcer Continue wound care DVT Px: Heparin SQ Code Status DNI/DNR Disposition PT OT prior to discharge Admission and Anticipated Discharge Date Admission Date: April 23, 2022 Subjective Patient is seen and examined at bedside Still has abdominal discomfort Had small BM today Also reports chronic dyspnea Denies any chest pain, dizziness Discussed with Cardiology today Review of Systems Review of Systems: All systems reviewed & are unremarkable except as noted in Subjective Physical Exam Physical Exam: Physical Exam: Vitals signs as noted above General Appearance:Moderately built and nourished, no apparent distress, Chronic ill appearing Head: normocephalic, Atraumatic Eyes: normal inspection, EOMI Neck: supple, Trachea midline Respiratory/Chest: Normal breath sounds, CTA, +Pacer Cardiovascular: S1, S2, No murmur Abdomen/GI:Soft, mild tender, Bowel sounds present Extremities/Musculoskeletal:normal inspection, Trace edema, +Left Ankle Ulcer,Right toes S/P amputation Neurologic/Psych:AAO, grossly no focal neurological deficits, Slow to respond at baseline Skin: normal color, warm Results & Data Results & Data ([facility]) Vital Signs (Past 12 Hours) Vital Signs Temp Pulse Pulse Pulse Resp BP Pulse Ox 04/25/22 11:33 04/25/22 11:28 36.5 C 62 18 130/73 99 04/25/22 10:29 60 04/25/22 07:55 36.7 C 60 18 112/68 100 04/25/22 02:56 36.5 C 60 18 119/72 99 O2 Del Method 04/25/22 11:33 Room Air 04/25/22 11:28 Room Air 04/25/22 10:29 04/25/22 07:55 Room Air 04/25/22 02:56 Room Air Laboratory Results Short CBC 04/25/22 Range/Units 06:45 WBC 8.90 (4.8-10.8) K/ul Hgb 10.6 L (12.0-16.0) g/dl Hct 32.3 L (34.1-44.9) % Plt Count 185 (130-400) K/uL BMP 04/25/22 06:45 Sodium 140 Potassium 4.0 Chloride 107 Carbon Dioxide 28 BUN 36 H Creatinine 1.45 H Glucose 94 Calcium 9.2
[2022-04-25] MEDS ORDERED: POLYETHYLENE (MIRALAX) 17 GM PACK PO ONE (14:10)
[2022-04-25] MEDS ORDERED: ATORVASTATIN 40 MG TAB PO SCH (16:30)
[2022-04-25] MEDS: LANTUS PER UNIT CHARGE SQ SCH (21:52)
[2022-04-26] MEDS: PANTOprazole 40 MG TAB PO SCH (05:47)
[2022-04-26 07:45] LABS: Calcium 9.2 mg/dl (8.5-10.1); Creatinine Clr Calc Pharmacy 37.7 ml/min; Est GFR (African American) 54.9 ml/min; Est GFR (Non-African American) 47.4 ml/min; Potassium 3.4 mmol/L (3.5-5.1)
[2022-04-26] MEDS ORDERED: POTASSIUM CHLORIDE 20 MEQ/15 ML UDC PO ONE ×2 (08:03→08:10)
[2022-04-26] MEDS: MULTIVITAMIN TAB PO SCH (08:41)
[2022-04-26] MEDS: INSULIN ASPART PER UNIT SC SCH ×2 (08:42→12:16)
[2022-04-26] MEDS: amLODIPine BESYLATE 5 MG TAB PO SCH (08:42)
[2022-04-26] MEDS: ASPIRIN 81 MG ECTAB PO SCH (08:46)
[2022-04-26] MEDS: CARBIDOPA/LEVODOPA 25/100MG TAB PO SCH ×4 (08:47→21:48)
[2022-04-26] MEDS: DOCUSATE SODIUM/SENNA 50/8.6MG TAB PO SCH (08:48)
[2022-04-26] MEDS: ESCITALOPRAM OXALATE 20 MG TAB PO SCH (08:49)
[2022-04-26] MEDS: METOPROLOL SUCC 50MG EXT REL TAB PO SCH ×2 (08:49→21:49)
[2022-04-26] MEDS: ACETAMINOPHEN 325 MG TAB PO PRN (08:50)
[2022-04-26 08:54] LABS: Magnesium 1.6 mg/dl (1.7-2.4)
[2022-04-26] MEDS ORDERED: MAGNESIUM SULFATE / D5W 1 GM/100 ML BAG IV ONE (09:37)
--- NOTE | 2022-04-26 11:14 | Cardiology Progress Note ---
Date of Service April 26, 2022 Assessment & Plan (1) ICD (implantable cardioverter-defibrillator) battery depletion: (2) Ischemic heart disease: (3) Parkinson disease: Plan - As noted, patient is euvolemic, and I do not think she has symptoms suggestive of angina. -Echocardiogram revealed stable findings, with wall motion abnormalities similar to that noted at the time of her recent outpatient echo. -She has had a progressive decline over the last few years and especially over the last few months, with noted inability to walk, cognitive impairment, and has several wounds on her left ankle, right foot, and sacrum. She has a dual-chamber [employer] pacemaker AICD placed for secondary prevention of ventricular arrhythmias and reached the elective replacement interval as of 01/31/2022. As per discussion with patient and her sister , Sarah, think it is appropriate and in keeping with the patient/family's wishes, to proceed with the palliative care approach. Patient now DNR/DNI. I changed the settings of her device today. Her ventricular therapies have been deactivated. The lower rate for pacemaker capability has been reduced from 60 bpm to 50 bpm. No plans for generator change. Sarah expressed interest in meeting with palliative care today. I will help facilitate the meeting. Admission and Anticipated Discharge Date Admission Date: April 23, 2022 Subjective Patient seen in cardiology follow-up. Denies cardiac complaints. Telemetry reveals sinus rhythm with atrial pacing in the 60s. Review of Systems Review of Systems: Other (Comprehensive review of systems unobtainable due to the patient's cognitive status) Physical Exam Constitutional: WD/WN, vitals as above Respiratory: normal respiratory effort, lungs clear to auscultation Cardiovascular: RRR, no murmur, no edema Gastrointestinal (Abdomen): normal bowel sounds, soft, nontender, no hepatosplenomegaly Neurologic: Mild resting tremor Results & Data ([facility]) Vital Signs (Past 12 Hours) Vital Signs Temp Pulse Pulse Pulse Pulse Resp BP 04/26/22 10:38 36.8 C 54 L 20 133/61 04/26/22 10:15 63 04/26/22 08:30 59 L 04/26/22 07:16 36.7 C 59 L 14 04/26/22 04:21 36.3 C L 64 16 04/25/22 23:47 60 BP Pulse Ox O2 Del Method 04/26/22 10:38 100 Room Air 04/26/22 10:15 04/26/22 08:30 158/76 H 04/26/22 07:16 144/62 H 96 Room Air 04/26/22 04:21 129/72 99 Room Air 04/25/22 23:47 Laboratory Results Comprehensive Metabolic Panel 04/26/22 Range/Units 06:41 Sodium 141 (136-145) mmol/L Potassium 3.4 L (3.5-5.1) mmol/L Chloride 107 (98-107) mmol/L Carbon Dioxide 28 (21-32) mmol/L BUN 26 H (6-23) mg/dl Creatinine 1.18 (0.6-1.2) mg/dl Glucose 63 L (70-99(Fasting)) mg/dl Calcium 9.2 (8.5-10.1) mg/dl Intake and Output 04/25/22 04/26/22 04/26/22 22:59 06:59 14:59 Intake Total 1151917.64 Output Total Balance -1916.64 115 / 1916.64 Intake: IV 1000 / 1568.64 Sodium Chloride 0.9% 1000ML 1, 1000 / 1000 000 ml @ 50 mls/hr IV .Q20H ONE Rx#:[id number] Oral 150 / 350 Output: Urine/Stool Mix Other: # Unmeasured Voids 2 # Bowel Movement Diapers 1 Weight 59.9 kg Weight Measurement Method Built in [facility]
[2022-04-26] MEDS: MAGNESIUM OXIDE 400 MG TAB PO SCH ×2 (12:15→21:49)
--- NOTE | 2022-04-26 13:23 | Palliative Care Progress Note ---
Date of Service April 26, 2022 Assessment & Plan (1) Palliative care encounter: (2) Dyspnea: (3) Advanced care planning/counseling discussion: (4) Abdominal pain, lower: Plan * Family meeting today at 315pm with sister/HCP Sarah - this time has been selected by and confirmed with Sarah. RN and care mgt notified of same. * A 50min ACp/Family meeting held with Sarah, pt, her brother Jhonathan and a great niece Fatoumata. Jhonathan and Fatoumata left about 15min into this discussion. we r eviewed options for care including home hospice, which they would like to accept with ongoing focus of comfort and QOL with symptom mgt. * Patient would like focus on comfort to begin now. She and family agree to move to comfort care status. * I have updated CM, nursing and primary team. Sister will need to connect with CM for hospice agency selection and review of desired DME incl hospital bed, BSC, wheelchair and bedside table. Admission and Anticipated Discharge Date Admission Date: April 23, 2022 Subjective Resting in bed, reports pain with personal care/dcubit care, would like some medication for this and for dyspnea relief, remains fatigued. Awaiting family Review of Systems Constitutional: + fatigue, + malaise, + weakness and + anorexia Respiratory: + dyspnea Cardiovascular: + dyspnea at rest and + orthopnea Gastrointestinal: + abdominal pain, + nausea and + diarrhea/loose stools Musculoskeletal: + limited range of motion, + muscle weakness and + muscle atrophy PD related contractures Integumentary: + skin ulcer Neurologic: + unsteadiness and + generalized weakness Physical Exam Constitutional: + frail appearing Eyes: PERRL, conjunctivae normal, anicteric sclerae Respiratory: normal respiratory effort, lungs clear to auscultation + labored breathing (mild) and able to speak in complete sentences Auscultation: + diminished lung sounds and + crackles Cardiovascular: RRR, no murmur, no edema Gastrointestinal (Abdomen): normal bowel sounds, soft, nontender, no hepatosplenomegaly Skin: + patchy alopecia Neurologic: Mild resting tremor Psychiatric: Orientation: alert and oriented x 3 Affect: + flat affect Results & Data ([facility]) Vital Signs (Past 12 Hours) Vital Signs Temp Pulse Pulse Pulse Pulse Resp BP 04/26/22 11:02 04/26/22 10:38 36.8 C 54 L 20 133/61 04/26/22 10:15 63 04/26/22 08:30 59 L 04/26/22 07:16 36.7 C 59 L 14 04/26/22 04:21 36.3 C L 64 16 BP Pulse Ox O2 Del Method 04/26/22 11:02 Room Air 04/26/22 10:38 100 Room Air 04/26/22 10:15 04/26/22 08:30 158/76 H 04/26/22 07:16 144/62 H 96 Room Air 04/26/22 04:21 129/72 99 Room Air PG Care Time/CCT Total # of Minutes Spent Total Time Spent: 80 Total Time Spent with Patient: Total time spent is greater than 50% in coordination of care (as documented) at patient's floor/unit and/or counseling patient: 80min in total, 50 of which was with face to face family meeting, in addition to time spent in chart review, discussion with medical teams and coordination of care. Coding Level of Care Code Established Pt ADVNCD CARE PLAN 30 MIN Patient Type Established History Expanded Problem Focused Exam Detailed Medical Decision Making Moderate Complexity Diagnoses Palliative care encounter Z51.5 Dyspnea R06.01 Dyspnea type: orthopnea Advanced care planning/counseling discussion Z71.89 Abdominal pain, lower R10.30 (1) Dyspnea Dyspnea type: orthopnea Qualified Code(s): R06.01 - Orthopnea
--- NOTE | 2022-04-26 14:16 | Hospitalist Progress Note ---
Date of Service April 26, 2022 Assessment & Plan (1) Stercoral colitis: Plan: Acute kidney injury Likely Prerenal Baseline creatinine 1.2 Creatinine 2.1>>1.6>1.45>1.18 Received IV fluids Avoid nephrotoxic agents as able Monitor renal function Renal function back to baseline Stercoral colitis Constipation --CT ABD:Large stool ball within the rectum. Mild adjacent stranding. Stercoral colitis cannot be excluded. Similar findings shown on prior CT. Moderate amount of stool within the colon. No bowel obstruction. No urinary calculi or hydronephrosis. Will obtain stool studies if develops diarrhea Discontinued Zosyn Continue bowel regimen Tolerating diet ICD battery depletion H/O VT/VF Appreciate cardiology input Given progressive decline secondary to comorbidities, patient was thought to be a poor candidate for ICD exchange Goal is comfort as per Patient/family Palliative care consulted to address goals of care ICD settings changed as per cardiology Chest pain Troponin elevation likely due to SABRINA -ECHO: Mild concentric LVH. Subtle degree of hypokinesis of the mid and apical inferoseptum, anteroseptum. EF 55 to 60%. Aortic valve sclerosis mild, without significant aortic stenosis. Mild tricuspid regurgitation. Grade 1 diastolic dysfunction. Unchanged echo findings from recent outpatient echo done at [facility]. H/O CAD S/P CABG, Stent Continue aspirin, Plavix, metoprolol, Lipitor Appreciate cardiology input Denies any chest pain today Chronic diastolic heart failure Currently dehydrated Continue home medications Monitor volume status Hypokalemia Hypomagnesemia Replete electrolytes as needed Hypertension BP stable Continue home medication Monitor Asthma stable No signs of exacerbation H/O Paroxysmal V-tach/VF S/P ICD No plan for ICD exchange as above DM II HbA1c 7.7 Continue Insulin Monitor BGs Hypomagnesemia Replete as needed Parkinson's disease Continue carbidopa levodopa Chronic decubitus wounds Left Ankle diabetic ulcer Continue wound care DVT Px: Heparin SQ Code Status DNI/DNR Disposition PT OT prior to discharge Admission and Anticipated Discharge Date Admission Date: April 23, 2022 Subjective Patient is seen and examined at bedside Had bowel movements today Denies any abdominal pain today Tolerating diet Denies any chest pain, dyspnea, dizziness Review of Systems Review of Systems: All systems reviewed & are unremarkable except as noted in Subjective Physical Exam Physical Exam: Physical Exam: Vitals signs as noted above General Appearance:Moderately built and nourished, no apparent distress, Chronic ill appearing Head: normocephalic, Atraumatic Eyes: normal inspection, EOMI Neck: supple, Trachea midline Respiratory/Chest: Normal breath sounds, CTA, +Pacer Cardiovascular: S1, S2, No murmur Abdomen/GI:Soft, mild tender, Bowel sounds present Extremities/Musculoskeletal:normal inspection, Trace edema, +Left Ankle Ulcer,Right toes S/P amputation Neurologic/Psych:AAO, grossly no focal neurological deficits, Slow to respond at baseline Skin: normal color, warm Results & Data Results & Data ([facility]) Vital Signs (Past 12 Hours) Vital Signs Temp Pulse Pulse Pulse Pulse Resp BP 04/26/22 11:02 04/26/22 10:38 36.8 C 54 L 20 133/61 04/26/22 10:15 63 04/26/22 08:30 59 L 04/26/22 07:16 36.7 C 59 L 14 04/26/22 04:21 36.3 C L 64 16 BP Pulse Ox O2 Del Method 04/26/22 11:02 Room Air 04/26/22 10:38 100 Room Air 04/26/22 10:15 04/26/22 08:30 158/76 H 04/26/22 07:16 144/62 H 96 Room Air 04/26/22 04:21 129/72 99 Room Air Laboratory Results [facility] 04/26/22 06:41 Sodium 141 Potassium 3.4 L Chloride 107 Carbon Dioxide 28 BUN 26 H Creatinine 1.18 Glucose 63 L Calcium 9.2
[2022-04-26] MEDS ORDERED: ONDANSETRON 4 MG OD TAB SL PRN (16:17)
[2022-04-26] MEDS ORDERED: LORazepam 0.5 MG TAB PO PRN (16:17)
[2022-04-26] MEDS ORDERED: haloperidoL 1 MG TAB PO PRN (16:17)
[2022-04-26] MEDS ORDERED: ACETAMINOPHEN 325 MG TAB PO PRN (16:17)
[2022-04-26] MEDS ORDERED: MoRPHine SULFATE 5 MG/0.25 ML UDP PO PRN (16:17)
[2022-04-26] MEDS ORDERED: CLOPIDOGREL BISULFATE 75 MG TAB PO SCH (21:00)
[2022-04-26] MEDS: LANTUS PER UNIT CHARGE SQ SCH (21:56)
[2022-04-27] MEDS: PANTOprazole 40 MG TAB PO SCH (06:17)
[2022-04-27 07:02] LABS: Hematocrit (blood only) 30.5 % (34.1-44.9); Hemoglobin 10.1 g/dl (12.0-16.0); Mean Corpuscular Hemoglobin 28.1 pg (25.0-34.0); Mean Corpuscular Hgb Conc 33.1 g/dL (32.0-36.0); Mean Platelet Volume 10.3 fL (9.4-12.3); Platelet Count 177 K/uL (130-400); RDW Coefficient of Variation 12.9 % (11.5-14.5); RDW Standard Deviation 40.1 fL (36.4-46.3); Red Blood Count 3.59 M/uL (3.93-5.22); White Blood Count 9.75 K/ul (4.8-10.8)
[2022-04-27 07:24] LABS: Calcium 9.2 mg/dl (8.5-10.1); Creatinine Clr Calc Pharmacy 42.8 ml/min; Est GFR (African American) 63.9 ml/min; Est GFR (Non-African American) 55.2 ml/min; Magnesium 1.5 mg/dl (1.7-2.4)
[2022-04-27] MEDS: DOCUSATE SODIUM/SENNA 50/8.6MG TAB PO SCH (08:44)
[2022-04-27] MEDS: CARBIDOPA/LEVODOPA 25/100MG TAB PO SCH (08:44)
[2022-04-27] MEDS: ESCITALOPRAM OXALATE 20 MG TAB PO SCH (08:44)
[2022-04-27] MEDS: amLODIPine BESYLATE 5 MG TAB PO SCH (08:45)
[2022-04-27] MEDS: METOPROLOL SUCC 50MG EXT REL TAB PO SCH (08:45)
[2022-04-27] MEDS: MAGNESIUM OXIDE 400 MG TAB PO SCH (08:58)
--- NOTE | 2022-04-27 11:31 | Cardiology Progress Note ---
Date of Service April 27, 2022 Assessment & Plan (1) ICD (implantable cardioverter-defibrillator) battery depletion: (2) Ischemic heart disease: (3) Parkinson disease: Plan - Patient transitioning to home with hospice, comfort care. -As noted, family's priority is keeping her company. -I think would be reasonable to discontinue her cardiac medications at discharge. Admission and Anticipated Discharge Date Admission Date: April 23, 2022 Subjective Patient seen in follow-up. She has been transferred to room [facility] and is no longer on telemetry. She is accompanied by her sister, Sarah. Patient without complaints. Physical Exam Constitutional: + ill appearing Respiratory: normal respiratory effort, lungs clear to auscultation Cardiovascular: RRR, no murmur, no edema Neurologic: Resting tremor, cognitive impairment Results & Data ([facility]) Vital Signs (Past 12 Hours) Vital Signs Temp Pulse Resp BP Pulse Ox O2 Del Method 04/27/22 08:05 Room Air 04/27/22 07:41 36.8 C 58 L 16 111/53 L 96 Room Air
--- NOTE | 2022-04-27 12:14 | Discharge Summary ---
Date of Service April 27, 2022 Admission HPI Per Admitting Provider Chief Complaint: abdominal pain, chest pain Primary Care Provider: Fior Guzman MD Medical history obtained from patient, sister, and records. Medical history significant for chronic diastolic heart failure (EF 60 to 64%, TTE 2021), CAD status post CABG/stent, hypertension, sleep apnea, asthma, history of paroxysmal V-tach/VF status post ICD, DM2 insulin requiring, chronic anemia (baseline hemoglobin of 10-11), history urolithiasis, PMR, Parkinson's disease, past tobacco abuse Last confinement August 2020 for chest pain. 2 days history of achy lower abdominal pain nausea and vomiting. Bowel movement okay as per patient. Substernal chest pain related to nausea vomiting as per patient. No unusual headache symptoms. No cough symptoms. Patient brought to the ER for evaluation. Patient complained of rectal pain to RN. Admission Exam Per Admitting Provider GENERAL: Comfortable, bradykinetic, slightly hard of hearing, no respiratory distress SKIN: Pallor, warm HEENT: Pale palpebral conjunctivae, no ptosis, dry buccal mucosa NECK : Supple, no tenderness CHEST : Healed sternal scar, CTA, no tenderness HEART : RRR, no obvious murmurs ABDOMEN: Some distention, hypogastric tenderness EXTREMITIES : Minimal LE swelling, no LE tenderness, partial amputation stump right foot NEUROLOGIC : Coherent, no facial asymmetry, slightly hard of hearing, gait and stance not assessed Principal Diagnosis hospice Discharge Exam resting comfortably in bed Rest of exam deferred due to patient comfort as focus and home hospice pending Discharge Data Allergies Allergy/AdvReac Type Severity Reaction Status Date / Time bee venom protein (honey bee) Allergy Severe SWELLING Verified 04/23/22 20:45 lidocaine Allergy Severe ANAPHYLAXIS Verified 04/23/22 20:45 morphine Allergy Mild itching Verified 04/23/22 20:45 tramadol Allergy Mild ITCHING Verified 04/23/22 20:45 trazodone Allergy Mild ITCHING Verified 04/23/22 20:45 Sulfa (Sulfonamide AdvReac Intermediate itching Verified 04/23/22 20:45 Antibiotics) Consultations 04/24/22 06:55 Consult Cardiology Routine 04/25/22 10:50 Consult Palliative Care Routine Ordered Studies 04/23/22 20:05 CT Abd and Pelvis [CT abd pelvis wo con] Stat Hospital Course (1) Hospice care: Patient presented with n/v/d and decreased po intake in the setting of advanced Parkinson's disease and extensive cardiac history. Family discussion with palliative care ultimately decided to peruse comfort measures and home hospice, which was set up and ready for discharge to home hospice 04/27/2022. Total Time Total Time Spent Total Time Spent (In Minutes): 15 Total Time Includes: Examination of the Patient, Discharge Planning and Medication Reconciliation Discharge Plan Discharge Items Patient Disposition: Hospice - Home Reason For Visit: ARF, CP Discharge Diagnosis: Hospice Activity: As commented below Activity Comment: as tolerated Non-emergency contact: Primary Care Provider Call non-emergency contact if: you have any medication questions Follow-up/Referrals: Fior Guzman MD [Primary Care Provider] - Diet: Regular Addtl Attending Provider Instructions: You were admitted with failure to thrive in the setting of advanced Parkinson's disease and other chronic disease. Family discussion with palliative care team decided to focus on the patients comfort and to ultimately discharge home with home hospice. Pending Studies at Discharge: No Stand-Alone Forms: My [facility] Medications and DC Order Prescriptions: New lorazepam 0.5 mg Tablet 0.5 mg PO Q4H PRN (Reason: anxiety) Qty: 30 0RF morphine concentrate 100 mg/5 mL (20 mg/mL) Solution 5 mg PO Q2HWA PRN (Reason: pain, dyspnea) Qty: 118 0RF ondansetron 4 mg Tablet,Disintegrating 4 mg sublingual Q4H PRN (Reason: nausea and vomiting) Qty: 30 0RF Continued sennosides-docusate sodium [Senna with Docusate Sodium] 8.6-50 mg tablet 1 tab-cap PO DAILY carbidopa-levodopa 25-100 mg tablet 1 tab PO QID 30 Days Qty: 120 2RF Rx Instructions: [id number] metoprolol succinate [Toprol XL] 50 mg tablet extended release 24 hr 50 mg PO BID polyethylene glycol 3350 [Miralax] 17 gram Powder In Packet 17 g PO DAILY PRN (Reason: constipation) Qty: 30 0RF atorvastatin 40 mg tablet 40 mg PO QDD clopidogrel 75 mg tablet 75 mg PO HS pantoprazole 40 mg tablet,delayed release (DR/EC) 40 mg PO DAILYBB nitroglycerin 0.4 mg tablet, sublingual 0.4 mg Sublingual DIRECTED PRN (Reason: Chest Pain) Rx Instructions: PLACE 1 TABLET UNDER THE TONGUE EVERY 5 MINUTES FOR UP TO 3 DOSES OVER 15 MINUTES IF NEEDED FOR CHEST PAIN escitalopram oxalate 20 mg tablet 20 mg PO QAM acetaminophen 325 mg Tablet 650 mg PO DAILY PRN (Reason: Fever Or Pain) amlodipine 5 mg tablet 2.5 mg PO QAM Rx Instructions: Takes 0.5 tablets in the morning. 08/17/2021 docusate sodium [Colace] 100 mg capsule 100 mg PO BIDM PRN (Reason: Constipation) Discontinued insulin aspart U-100 100 unit/mL cartridge 4 unit subcut USEASDIRECTD Rx Instructions: sliding scale ac dulaglutide 0.75 mg/0.5 mL pen injector 0.75 mg subcut .FAMILY DIDN'T START Rx Instructions: Is supposed to get once a week menthol-zinc oxide [Calmoseptine] 0.44-20.6 % ointment 1 applic topical QID PRN (Reason: .flare ups) multivitamin tablet 1 tab PO QDB aspirin 81 mg Tablet,Delayed Release (Dr/Ec) 81 mg PO QAM Lantus U-100 Insulin 100 unit/mL solution 18 unit SUBCUT QAM ketoconazole 2 % shampoo 1 applic TOPICAL .1-2XS WEEK ciprofloxacin HCl 500 mg tablet 500 mg PO BID Rx Instructions: Take for 14 days, filled 04/09/22 doxycycline hyclate 100 mg tablet 100 mg PO BID Rx Instructions: Take for 14 days, filled 04/09/22 Discharge Orders: Discharge Order (Routine); Ordered 04/27/22 Ordered By: Caleb Anand/Other Patient Handouts: Managing Type 2 Diabetes Admission Data Admit Date/Time: 04/23/22 20:13 Attending Provider: Caleb Ohara Admit Provider: Dereje Pedraza Primary Care Provider: Fior Guzman Other Providers: Jhonathan Munguia ; Go Schultz ; Noble Spain ; Adeel Curtis i ; Luis Esquivel ; James Anderson ; Elizabeth Tracey ; [place] ; Linda Sunshine ; Khalif Sierra ; Deisy Montenegro ; [facility]
--- NOTE | 2022-04-27 14:33 | Palliative Care Progress Note ---
Date of Service April 27, 2022 Assessment & Plan (1) Palliative care encounter: Plan: dC home with [facility] hospice. NO acute needs. Hospice attending will be PCP/I am available for help if needed. (2) Dyspnea: Plan: PRN meds ordered for comfort. Plan as noted above. Faith Leigh DNP Clinical Director, Palliative Medicine Admission and Anticipated Discharge Date Admission Date: April 23, 2022 Subjective No acute issues. Planning for dc home today with [facility] hospice, wants a comfort plan of care/does not want to stay on home meds. Review of Systems Review of Systems: All systems reviewed & are unremarkable except as noted in Subjective Physical Exam Physical Exam: No distress, defers exam. Happy with plan to return home. Results & Data ([facility]) Vital Signs (Past 12 Hours) Vital Signs Temp Pulse Resp BP BP Pulse Ox O2 Del Method 04/27/22 14:27 36.8 C 58 L 16 111/53 L 158/76 H 96 04/27/22 08:05 Room Air 04/27/22 07:41 36.8 C 58 L 16 111/53 L 96 Room Air PG Care Time/CCT Total # of Minutes Spent Total Time Spent with Patient: Total time spent is greater than 50% in coordination of care (as documented) at patient's floor/unit and/or counseling patient: Coding Level of Care Code 42896 Subseq Hosp Care Lvl 1 Diagnoses Palliative care encounter Z51.5 Dyspnea R06.01 Dyspnea type: orthopnea (1) Dyspnea Dyspnea type: orthopnea Qualified Code(s): R06.01 - Orthopnea
== END 2022-04-27 16:05 | disposition hospice, home (50) | DRG 683 ==
LOC: ED 14:05 → SUATTDRO 20:13 → 2E 20:13 → 3W 04-26 18:47
DX: Z95.1 Presence of aortocoronary bypass graft; E11.9 Type 2 diabetes mellitus without complications; J45.909 Unspecified asthma, uncomplicated; Z79.899 Other long term (current) drug therapy; Z79.4 Long term (current) use of insulin; Z95.5 Presence of coronary angioplasty implant and graft; Z51.5 Encounter for palliative care; I11.0 Hypertensive heart disease with heart failure; Z89.421 Acquired absence of other right toe(s); L97.329 Non-pressure chronic ulcer of left ankle with unspecified severity; I25.9 Chronic ischemic heart disease, unspecified; Z88.5 Allergy status to narcotic agent; Z79.82 Long term (current) use of aspirin; Z88.2 Allergy status to sulfonamides; Z95.810 Presence of automatic (implantable) cardiac defibrillator; K21.9 Gastro-esophageal reflux disease without esophagitis; D64.9 Anemia, unspecified; Z87.891 Personal history of nicotine dependence; K59.00 Constipation, unspecified; E86.0 Dehydration; Z66 Do not resuscitate; I50.32 Chronic diastolic (congestive) heart failure; G20 Parkinson's disease; Z80.0 Family history of malignant neoplasm of digestive organs; Z83.3 Family history of diabetes mellitus; R06.01 Orthopnea; K52.89 Other specified noninfective gastroenteritis and colitis; Z88.8 Allergy status to other drugs, medicaments and biological substances; L89.90 Pressure ulcer of unspecified site, unspecified stage; E83.42 Hypomagnesemia; Z91.030 Bee allergy status; N17.9 Acute kidney failure, unspecified; Z86.010 Personal history of colon polyps; T82.111A Breakdown (mechanical) of cardiac pulse generator (battery), initial encounter; Z82.49 Family history of ischemic heart disease and other diseases of the circulatory system